=== PATIENT | female | born 1955 | race Caucasian/White ===

== ENCOUNTER 2019-04-03 15:28 | Outpatient (RCR) | payer BC, SELFPAY ==
--- NOTE | 2019-04-04 07:26 | PTOPEVAL ---
Thank you for referring this patient to [facility]. Please review, sign, date and return this plan of care JOSEPH. I agree with and certify that the following plan of care is medically necessary. Referring Physician Date Admitting Provider: Attending Provider: Louis Hughes DO Referring Provider: *PT Outpatient Evaluation Start: 04/03/19 15:35 Freq: Status: Active Protocol: Document 04/03/19 15:45 JTF (Rec: 04/03/19 16:11 J [id number]) Therapy Assessment Status Assessment Status Assessment Status Evaluation Outpatient Past Medical History Past Medical History Past Medical History Status Patient Denies Significant Past Medical History Evaluation Information Problem Diagnosis L shoulder pain Onset 03/26/19 Additional Evaluation Detail quick dash = 72% Subjective Information patient reports she has been Query Text:As Reported By Patient/ having pain in the L shoulder Family for a few years. she reports she does not remember any injury. she reports she has had x-rays of the L shoulder. she reports she has been informed she has arthritis of the L shoulder. she reports she is retired. she reports she did fall down some steps a few years ago that may have begun her pain episodes. she reports she has increased pain in the L shoulder with lifting her grandson, getting dressed, and falling asleep. Prior Level of Function Comments Additional Prior Level of Function patient reports she has been Comments having pain in the L shoulder for years. she reports she avoids using the L arm as much as possible. she reports she takes care of her grandon all day. Pain Assessment Timing of Pain Assessment Timing of Pain Assessment Assessment Pain Scale Pain Scale Used Numeric (1 - 10) Self Report Pain Assessment Left Shoulder(s) Reported Pain Level 0 Current Pain Intensity 0 Lowest Pain Intensity 0 Greatest Pain Intensity 10 Pain Level Goal 0 Pain Aggravating Factors Lifting,Other Pain Aggravating Factors Other Pain Aggravating Factors overhead reaching. Pain Sco
--- NOTE | 2019-04-10 13:08 | PCPTNOTE ---
04/10/19 patient called and cancelled JF
== END 2019-05-02 08:53 | disposition home or self-care (01) ==
LOC: CHSPT 15:28
PROVIDERS: PCP Family Medicine; Visit Provider Family Medicine
DX: M25.512 Pain in left shoulder (principal)
CPT/HCPCS: 97110; 97161; 97530

== ENCOUNTER 2019-04-05 14:56 | Outpatient (CLI) | payer BC, SELFPAY ==
--- NOTE | ~2019-04-05 | CT_ITS ---
EXAMINATION: CTA chest DATE: 04/05/2019 15:14 INDICATION: Thoracic aortic aneurysm without rupture TECHNIQUE: Computed tomographic angiography (CTA) of the chest was performed without 100 mL Omnipaque -350 intravenous contrast. Volume-rendered 3D-reconstructions of the aorta and large arteries were co nstructed by the technologist on a separate workstation. Automated exposure control and iterative rec onstruction technique were employed. The dose-length product was 275 mGy-cm. COMPARISON: None. FINDINGS: Mild apical emphysema. No pneumonia or other pulmonary infiltrates, pulmonary edema or pleural effusi on. There is a curvilinear filling defect extending from the left mainstem bronchus into the trachea likely representing some mucus. Although not performed as a dedicated pulmonary embolism protocol the re is excellent contrast opacification of the pulmonary arteries and no significant motion artifact y ielding diagnostic quality study which demonstrates no pulmonary embolism. Heart size is normal. No p ericardial effusion. Eccentric bulge along the inferolateral wall of the aortic arch consistent with a ductus diverticulum. The aorta at this location measures 3.9 cm medial to lateral and 3.4 cm in max imal transaxial dimensions. Remainder of the thoracic aorta is normal in caliber. No dissection. No p athologically enlarged thoracic lymphadenopathy. Visualized upper abdomen is unremarkable. Moderate d isc height loss with Modic type III sclerotic endplate changes at T7-T8. Left-sided C7 cervical rib. IMPRESSION: 1. 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 2. Mild emphysema. Reviewed, dictated and finalized at location A. RTING MANAGER IMPRESSION: 1. 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 2. Mild emphysema.
[2019-04-05 16:07] LABS: Estimated Glomerular Filt Rate > 60
== END 2019-04-05 14:57 | disposition home or self-care (01) ==
PROVIDERS: PCP Family Medicine; Visit Provider Family Medicine
DX: I71.2 Thoracic aortic aneurysm, without rupture (principal)
CPT/HCPCS: 71275; Q9965

== ENCOUNTER 2019-04-24 08:42 | Outpatient (CLI) | payer BC, SELFPAY ==
--- NOTE | ~2019-04-24 | US_ITS ---
EXAMINATION: US ARTERIAL DUPLEX LOWER SANDRA DATE: 04/24/2019 09:52 INDICATION: Hypertension, hyperlipidemia and tobacco use with thoracic aortic aneurysm and prominent vessels in the lower extremities. Assess for popliteal artery aneurysm. TECHNIQUE: Grayscale ultrasound images and duplex color Doppler ultrasound images of the bilateral lo wer extremity arteries were obtained. COMPARISON: none FINDINGS: Peak systolic velocities (cm/s) were obtained in the following arteries: Right lower extremity: Waveforms are triphasic from the common femoral artery through the distal superficial femoral artery and biphasic more distally with brisk systolic upstrokes throughout. Common femoral: 128 Profunda femoral: 83 Superficial femoral, proximal: 106 Superficial femoral, mid: 94 Superficial femoral, distal: 82 Popliteal, proximal: 60 and measures 6 mm in maximal diameter Popliteal, distal: 130 and measures 4 mm in maximal diameter Peroneal: 47 Posterior tibial: 66 Dorsalis pedis: 27 Anterior tibial: 50 Left lower extremity: Forms are triphasic with brisk systolic upstrokes throughout the left lower extremity. Common femoral: 147 Profunda femoral: 79 Superficial femoral, proximal: 138 Superficial femoral, mid: 116 Superficial femoral, distal: 93 Popliteal, proximal: 54 and measures 7 mm in maximal diameter Popliteal, distal: 92 and measures 6 mm in maximal diameter. Peroneal: 65 Posterior tibial: 80 Dorsalis pedis: 47 Anterior tibial: 42 IMPRESSION: 1. Unremarkable duplex Doppler study of the arteries of the lower extremities with no arterial aneur ysms or hemodynamically significant stenosis. Reviewed, dictated and finalized at location A. TAPER HELPER IMPRESSION: 1. Unremarkable duplex Doppler study of the arteries of the lower extremities with no arterial aneurysms or hemodynamically significant stenosis.
--- NOTE | ~2019-04-24 | US_ITS ---
EXAMINATION: US aorta DATE: 04/24/2019 09:53 INDICATION: Thoracic aortic aneurysm. TECHNIQUE: Grayscale, color Doppler, and pulsed Doppler images of the aorta and common iliac arteries were obtained. COMPARISON: None. FINDINGS: The aorta is normal in caliber. The right common iliac artery is normal in caliber. The left common i liac artery is normal in caliber. IMPRESSION: 1. No abdominal aortic aneurysm. Reviewed, dictated and finalized at location A. CAL RECORD TRANSCRIBER
== END 2019-04-24 08:43 | disposition home or self-care (01) ==
PROVIDERS: PCP Family Medicine
DX: I71.2 Thoracic aortic aneurysm, without rupture (principal); Z72.0 Tobacco use; I10 Essential (primary) hypertension; E78.5 Hyperlipidemia, unspecified; R09.89 Other specified symptoms and signs involving the circulatory and respiratory systems
CPT/HCPCS: 76775; 93925

== ENCOUNTER 2019-10-08 12:50 | Outpatient (CLI) | payer BC, SELFPAY ==
[2019-10-08 13:01] LABS: Hematocrit 49.2 % (35.0-49.0); Hemoglobin 16.4 g/dL (12.0-15.0); Mean Corpuscular HGB Conc 33.3 g/dL (32.0-36.0); Mean Corpuscular Hemoglobin 32.3 pg (27.0-31.0); Mean Corpuscular Volume 96.9 fL (78.0-102.0); Platelet Count Result 259 K/mm3 (150-420); Red Blood Count 5.08 M/mm3 (4.20-5.40); Red Cell Distribution Width 12.3 % (11.6-14.4); White Blood Count 8.7 K/mm3 (4.8-10.8)
[2019-10-08 13:49] LABS: Alanine Aminotransferase 12 U/L (14-59); Albumin Level 3.4 g/dL (3.4-5.0); Alkaline Phosphatase 70 U/L (46-116); Anion Gap 5 mmol/L (8-16); Aspartate Amino Transferase 12 U/L (15-37); Bilirubin,Total 0.3 mg/dL (0.00-1.00); Blood Urea Nitrogen 20 mg/dL (7-18); Calcium 8.7 mg/dL (8.5-10.1); Carbon Dioxide 30 mmol/L (21-32); Chloride 103 mmol/L (98-108); Cholesterol 176 mg/dL (0-200); Estimated Glomerular Filt Rate 56; Glucose 85 mg/dL (70-99); HDL Direct 38 mg/dL (40-60); LDL Cholesterol Calculated 110 mg/dL (<130); Osmolality Calculated 287 mOsm/kg (285-295); Potassium 4.8 mmol/L (3.5-5.1); Sodium 138 mmol/L (136-145); Total Protein 6.2 g/dL (6.4-8.2); Triglycerides 141 mg/dL (0-150)
[2019-10-08 14:34] LABS: Thyroid Stimulating Hormone Reflex 0.93 u/IU/mL (0.36-3.74)
== END 2019-10-08 12:51 | disposition home or self-care (01) ==
PROVIDERS: PCP Family Medicine; Visit Provider Family Medicine
DX: I10 Essential (primary) hypertension (principal)
CPT/HCPCS: 36415; 80053; 80061; 80164; 80165; 84443; 85027

== ENCOUNTER 2020-04-14 09:09 | Outpatient (NON) | payer BC, SELFPAY | END 2020-04-14 09:10 | PROVIDERS: PCP Family Medicine; Visit Provider Family Medicine | DX: R30.0 Dysuria (principal) | CPT/HCPCS: 87077; 87086; 87088; 87186 ==

== ENCOUNTER 2020-05-19 07:29 | Outpatient (CLI) | payer BC, SELFPAY ==
[2020-05-19 07:47] LABS: Basophils Absolute Auto 0.07 K/mm3 (0.00-0.10); Basophils Percent Auto 0.9 % (0.0-1.0); Eosinophils Absolute Auto 0.07 K/mm3 (0.02-0.50); Eosinophils Percent Auto 0.9 % (1.0-6.0); Hematocrit 46.9 % (35.0-49.0); Hemoglobin 15.6 g/dL (12.0-15.0); Immature Granulocyte Absolute 0.04 K/mm3 (0.00-0.00); Immature Granulocyte Percent A 0.5 % (0.0-0.0); Lymphocytes Absolute Auto 2.81 K/mm3 (1.10-4.50); Lymphocytes Percent Auto 34.4 % (18.0-42.0); Mean Corpuscular HGB Conc 33.3 g/dL (32.0-36.0); Mean Corpuscular Hemoglobin 32.4 pg (27.0-31.0); Mean Corpuscular Volume 97.5 fL (78.0-102.0); Mean Platelet Volume 9.6 fl (9.2-11.8); Monocytes Absolute Auto 0.98 K/mm3 (0.10-0.90); Neutrophils Absolute Auto 4.2 K/mm3 (1.7-7.2); Neutrophils Percent Auto 51.3 % (50.0-70.0); Platelet Count Result 261 K/mm3 (150-420); Red Blood Count 4.81 M/mm3 (4.20-5.40); White Blood Count 8.2 K/mm3 (4.8-10.8)
[2020-05-19 09:18] LABS: Alanine Aminotransferase 17 U/L (14-59); Albumin Level 3.4 g/dL (3.4-5.0); Alkaline Phosphatase 72 U/L (46-116); Anion Gap 7 mmol/L (8-16); Aspartate Amino Transferase < 10 U/L (15-37); Bilirubin,Total 0.4 mg/dL (0.00-1.00); Blood Urea Nitrogen 11 mg/dL (7-18); Calcium 8.7 mg/dL (8.5-10.1); Carbon Dioxide 32 mmol/L (21-32); Chloride 100 mmol/L (98-108); Cholesterol 216 mg/dL (0-200); Estimated Glomerular Filt Rate > 60; Glucose 89 mg/dL (70-99); HDL Direct 43 mg/dL (40-60); LDL Cholesterol Calculated 138 mg/dL (<130); Osmolality Calculated 286 mOsm/kg (285-295); Potassium 4.1 mmol/L (3.5-5.1); Sodium 139 mmol/L (136-145); Total Protein 6.3 g/dL (6.4-8.2); Triglycerides 173 mg/dL (0-150)
== END 2020-05-19 07:30 | disposition home or self-care (01) ==
LOC: CHSLAB 07:31
PROVIDERS: PCP Family Medicine; Visit Provider Psychiatry & Neurology Psychiatry
DX: Z79.899 Other long term (current) drug therapy (principal)
CPT/HCPCS: 36415; 80053; 80061; 80164; 83036; 85025

== ENCOUNTER 2020-11-11 07:28 | Outpatient (CLI) | payer BC, SELFPAY ==
[2020-11-13 12:43] LABS: Valproic Acid 73.4 mg/L (50.0-100.0)
== END 2020-11-11 07:29 | disposition home or self-care (01) ==
LOC: CHSLAB 07:31
PROVIDERS: PCP Family Medicine
DX: Z79.899 Other long term (current) drug therapy (principal)
CPT/HCPCS: 36415; 80164

== ENCOUNTER 2020-11-23 15:20 | Emergency (ER) | payer BC, SELFPAY ==
--- NOTE | ~2020-11-23 | CT_ITS ---
EXAMINATION: CT brain wo con DATE: 11/23/2020 16:46 INDICATION: Head injury following a fall today. Frontal hematoma. TECHNIQUE: Computed tomography (CT) of the head was performed without intravenous contrast. The mA wa s adjusted according to patient size. Iterative reconstruction technique was employed. Exam dose: 68 1.00 mGy-cm total exam DLP. COMPARISON: 11/09/2016 CT head FINDINGS: There is prominent left frontal cephalhematoma. No skull fracture is detected. No coup or contrecoup intracranial abnormality is identified. No midline shift or mass effect. No intracranial mass lesion or hemorrhage or recent cerebrovascular accident is detected. No subdura l or epidural hematoma. IMPRESSION: Prominent left cephalhematoma; no skull fracture or acute intracranial abnormality Reviewed, dictated and finalized at Location A. Reviewed, dictated and finalized at location B. IMPRESSION: Prominent left cephalhematoma; no skull fracture or acute intracra nial abnormality
--- NOTE | ~2020-11-23 | CT_ITS ---
EXAMINATION: CT cervical spine wo con EXAM DATE: 11/23/2020 16:46 INDICATION: fall head injury after fall today with HERNANDEZ and hematoma to frontal . TECHNIQUE: Spiral CT of the cervical spine was performed without contrast. Axial images were reviewe d. Coronal and sagittal reformatted images cervical spine were also reviewed. The dose-length produc t (DLP) for this examination was 681.00 mGy-cm. The exposure was tailored according to patient size (auto mA exposure control), and iterative reconstruction (ASIR) was used as additional dose reduction technique. There is no prior study for comparison. FINDINGS: There is no evidence of acute cervical fracture. The odontoid process is intact. Pre-dens space is normal. Prevertebral soft tissue is normal. There are no soft tissue abnormalities identi fied. There is no disc space widening or traumatic vertebral body subluxation suspected. There is m oderate C5-6 disc disease. Mild disc disease at other mid cervical levels. There is advanced left C2- 3 and 3-4 facet arthropathy, advanced bilateral uncovertebral joint arthropathy at C5-6. A detailed level by level evaluation of spondylosis can be added as addendum if requested. IMPRESSION: 1. No acute cervical fracture. 2. Cervical spondylosis. Reviewed, dictated and finalized at location A.
[2020-11-23 15:30] VITALS: BP 153/81; PULSE 70; RESP 18; TEMP 36.1; O2SAT 96
[2020-11-23] MEDS: KETOROLAC (*BKC) 60 MG/2 ML VIAL IM (16:05)
--- NOTE | 2020-11-23 16:09 | ECG_ITS ---
Measurements Intervals [place] Rate: 67 P: 65 WA: 141 QRS: 22 QRSD: 77 T: 52 QT: 371 QTc: 394 Interpretive Statements SINUS RHYTHM BORDERLINE ST ABNORMALITY- ANTEROLAT/INF LEADS BASELINE ARTIFACT- I, II, III, AVR, AVL,A VF, V4-V6 BORDERLINE ECG Electronically Signed On 11-23-2020 16:29:15 CDT by Lazaro Zavala D.O.
[2020-11-23] MEDS: BENZTROPINE MESYLATE 1 MG TABLET PO (16:20)
[2020-11-23 16:44] LABS: Basophils Absolute Auto 0.08 K/mm3 (0.00-0.10); Basophils Percent Auto 0.7 % (0.0-1.0); Eosinophils Absolute Auto 0.06 K/mm3 (0.02-0.50); Eosinophils Percent Auto 0.5 % (1.0-6.0); Hematocrit 42.8 % (35.0-49.0); Hemoglobin 15.1 g/dL (12.0-15.0); Immature Granulocyte Absolute 0.05 K/mm3 (0.00-0.00); Immature Granulocyte Percent A 0.4 % (0.0-0.0); Lymphocytes Absolute Auto 3.13 K/mm3 (1.10-4.50); Lymphocytes Percent Auto 27.9 % (18.0-42.0); Mean Corpuscular HGB Conc 35.3 g/dL (32.0-36.0); Mean Corpuscular Hemoglobin 33.1 pg (27.0-31.0); Mean Corpuscular Volume 93.9 fL (78.0-102.0); Mean Platelet Volume 9.8 fl (9.2-11.8); Monocytes Absolute Auto 0.99 K/mm3 (0.10-0.90); Monocytes Percent Auto 8.8 % (2.0-11.0); Neutrophils Absolute Auto 6.9 K/mm3 (1.7-7.2); Neutrophils Percent Auto 61.7 % (50.0-70.0); Platelet Count Result 276 K/mm3 (150-420); Red Blood Count 4.56 M/mm3 (4.20-5.40); Red Cell Distribution Width 12.7 % (11.6-14.4); White Blood Count 11.2 K/mm3 (4.8-10.8)
[2020-11-23 17:06] LABS: Alanine Aminotransferase 17 U/L (14-59); Albumin Level 3.3 g/dL (3.4-5.0); Alkaline Phosphatase 64 U/L (46-116); Anion Gap 7 mmol/L (8-16); Aspartate Amino Transferase 10 U/L (15-37); Bilirubin,Total 0.2 mg/dL (0.00-1.00); Blood Urea Nitrogen 19 mg/dL (7-18); Carbon Dioxide 28 mmol/L (21-32); Chloride 98 mmol/L (98-108); Estimated CRCL calculation 56 ml/min; Estimated Glomerular Filt Rate > 60; Glucose 124 mg/dL (70-99); Osmolality Calculated 279 mOsm/kg (285-295); Potassium 4.6 mmol/L (3.5-5.1); Sodium 133 mmol/L (136-145); Total Protein 6.3 g/dL (6.4-8.2)
[2020-11-23 17:30] VITALS: BP 140/72; PULSE 80; RESP 18; O2SAT 99
--- NOTE | 2020-11-23 18:22 | ED.HEATRA ---
HPI - Head Injury General Chief complaint: Head Injury Stated complaint: head injury Time Seen by Provider: 11/23/20 15:23 Source: patient and RN notes reviewed Mode of arrival: ambulatory Limitations: no limitations History of Present Illness Complaint: head injury Onset (ago): hour(s) (1) Arrival Conditions: other (pt was not immobilized.) Mechanism of Injury: fall Loss of Consciousness: no Location of injury: parietal Severity: mild Severity scale (1-10): 4 Quality: dull and aching Other Injuries: none Associated symptoms: other (gentle generalized ryhthmic body movements) Related Data Home Medications Medication Instructions Recorded Confirmed clonazepam 1 mg tablet 1 mg PO BID PRN tablet 03/25/19 11/23/20 divalproex 500 mg tablet,delayed 500 mg PO Q12H 03/25/19 11/23/20 release risperidone 1 mg tablet 1 mg PO .1 QAM & 2 QPM tablet 03/25/19 11/23/20 trazodone 50 mg tablet 50 mg PO .Bedtime tablet 03/25/19 11/23/20 venlafaxine 75 mg tablet 75 mg PO DAILY 03/25/19 11/23/20 bupropion HCl 75 mg PO DAILY 11/23/20 11/23/20 Allergies Allergy/AdvReac Type Severity Reaction Status Date / Time No Known Allergies Allergy Verified 11/26/20 11:30 Review of Systems Review of Systems: All systems reviewed & are unremarkable except as noted in HPI and below Musculoskeletal: Musculoskeletal: Reports as per HPI (mild rhythmic body movements.) PMFSH Past Medical History Medical History Ascending aortic aneurysm Cataracts, bilateral Depression Hyperlipidemia Hypertension Hypothyroidism On valproic acid therapy Overweight Seasonal allergies Tobacco abuse Surgical History Surgical History History of carpal tunnel surgery Social History Social History Smoking packs per day: 0.5 Smoking cigarettes per day: 10.0 Years smoked: 40 Smoking pack-years: 20.00 Smoking status: Current every day smoker Tobacco type: cigarettes Additional living arrangements comments: . 3 adult children. Exam Const: General: no acute distress and alert Nutritional Appearance: well nourished Orientation/consciousness: patient oriented x3 Limitations: no limitations HENMT: Head: normal to inspection Ears: TM's normal bilaterally Other: left fronto-parietal hematoma Eyes: Conjunctivae: conjunctivae normal Pupils: Equal, round and reactive pupils present EOM: EOMs intact bilaterally Neck: Neck: normal visual inspection and no lymphadenopathy Chest: Chest palpation & inspection: normal inspection of the chest Resp: Effort & Inspection: normal respiratory effort Auscultation: clear to auscultation bilaterally Cardio: Rate: regular rate Rhythm: regular rhythm GI: GI Palp: Yes Soft to palpation and No Tenderness to palpation present (GI) Percussion: Yes normal to percussion : General: Yes bladder normal to palpation and Yes no CVA tenderness Back/Spine/Pelvis: Back: no CVA tenderness Skin: General skin exam: normal color Rashes: no rashes Neuro: General: patient oriented x3, moves all extremities, no meningeal signs and no focal motor deficits Cranial nerves: Yes CN's II-XII intact bilaterally Other: mild generalized rhythmic motion. Extrem: General: normal to inspection and no pedal edema Psych: Mental Status: mental status grossly normal Affect: normal affect Attitude: cooperative Thought content: Yes Normal thought content present Course Course Emergency Course: Pt was in no acute distress. less pain-ful with less body movement Reevaluation(s) Date: 11/23/20 Time: 16:25 Vital Signs Vital signs: Vital Signs Temperature 36.1 C L 11/23/20 15:30 Pulse Rate 70 11/23/20 15:30 Respiratory Rate 18 11/23/20 15:30 Blood Pressure 153/81 H 11/23/20 15:30 Pulse Oximetry 96 11/23/20 15:30 Temperature
[2020-11-23 18:29] VITALS: BP 132/70; PULSE 72; RESP 18; TEMP 37; O2SAT 98
== END 2020-11-23 18:32 | disposition home or self-care (01) ==
LOC: CHSED 15:22
PROVIDERS: Emergency Provider Emergency Medicine; PCP Family Medicine
DX: G25.9 Extrapyramidal and movement disorder, unspecified (principal); S09.90XA Unspecified injury of head, initial encounter; W19.XXXA Unspecified fall, initial encounter
CPT/HCPCS: 36415; 70450; 72125; 80053; 84484; 85025; 93005; 96372; 99283; 99284; A9270; J1885

== ENCOUNTER 2021-02-24 09:59 | Outpatient (CLI) | payer BC, SELFPAY ==
[2021-02-24 11:22] LABS: SARS-CoV-2 RNA PCR Negative (Negative)
== END 2021-02-24 10:00 | disposition home or self-care (01) ==
LOC: CHSLAB 10:01
PROVIDERS: PCP Family Medicine; Visit Provider Nurse Practitioner Family
DX: Z20.822 Contact with and (suspected) exposure to COVID-19 (principal)
CPT/HCPCS: C9803; U0003; U0005

== ENCOUNTER 2021-03-01 14:48 | Outpatient (NON) | payer BC, SELFPAY | END 2021-03-01 14:49 | disposition home or self-care (01) | LOC: CHSLAB 14:51 | PROVIDERS: Visit Provider Family Medicine | DX: R30.0 Dysuria (principal) | CPT/HCPCS: 87086; 87088 ==

== ENCOUNTER 2021-06-22 13:51 | Outpatient (CLI) | payer BC, SELFPAY ==
[2021-06-22 14:21] LABS: Hematocrit 42.4 % (35.0-49.0); Hemoglobin 14.4 g/dL (12.0-15.0); Mean Corpuscular Hemoglobin 32.7 pg (27.0-31.0); Mean Corpuscular Volume 96.4 fL (78.0-102.0); Mean Platelet Volume 9.9 fl (9.2-11.8); Platelet Count Result 274 K/mm3 (150-420); White Blood Count 9.6 K/mm3 (4.8-10.8)
[2021-06-22 15:02] LABS: Alanine Aminotransferase 11 U/L (14-59); Albumin Level 3.2 g/dL (3.4-5.0); Alkaline Phosphatase 79 U/L (46-116); Anion Gap 7 mmol/L (8-16); Aspartate Amino Transferase < 10 U/L (15-37); Bilirubin,Total 0.3 mg/dL (0.00-1.00); Blood Urea Nitrogen 13 mg/dL (7-18); Calcium 8.9 mg/dL (8.5-10.1); Carbon Dioxide 30 mmol/L (21-32); Chloride 97 mmol/L (98-108); Cholesterol 180 mg/dL (0-200); Estimated Glomerular Filt Rate > 60; Glucose 102 mg/dL (70-99); HDL Direct 38 mg/dL (40-60); LDL Cholesterol Calculated 111 mg/dL (<130); Osmolality Calculated 278 mOsm/kg (285-295); Potassium 4.4 mmol/L (3.5-5.1); Sodium 134 mmol/L (136-145); Total Protein 6.3 g/dL (6.4-8.2); Triglycerides 157 mg/dL (0-150)
[2021-06-24 11:22] LABS: Valproic Acid 65.6 mg/L (50.0-100.0)
== END 2021-06-22 13:52 | disposition home or self-care (01) ==
LOC: CHSLAB 13:57
PROVIDERS: PCP Family Medicine
DX: Z79.899 Other long term (current) drug therapy (principal)
CPT/HCPCS: 36415; 80053; 80061; 80164; 85027

== ENCOUNTER 2022-02-04 09:32 | Outpatient (CLI) | payer MEDICARE, OTHER, SELFPAY ==
[2022-02-04 09:51] LABS: Basophils Percent Auto 1.2 % (0.0-1.0); Eosinophils Percent Auto 2.4 % (1.0-6.0); Hematocrit 44.4 % (35.0-42.0); Hemoglobin 14.8 g/dL (11.7-13.8); Immature Granulocyte Absolute 0.03 K/mm3 (0.00-0.00); Immature Granulocyte Percent A 0.4 % (0.0-0.0); Lymphocytes Absolute Auto 1.91 K/mm3 (1.10-4.50); Lymphocytes Percent Auto 22.7 % (18.0-42.0); Mean Corpuscular HGB Conc 33.3 g/dL (32.0-36.0); Mean Corpuscular Hemoglobin 31.4 pg (27.0-31.0); Mean Corpuscular Volume 94.1 fL (78.0-102.0); Mean Platelet Volume 10.2 fl (9.2-11.8); Monocytes Percent Auto 7.1 % (2.0-11.0); Neutrophils Absolute Auto 5.6 K/mm3 (1.7-7.2); Neutrophils Percent Auto 66.2 % (50.0-70.0); Platelet Count Result 212 K/mm3 (150-420); Red Blood Count 4.72 M/mm3 (4.20-5.40); Red Cell Distribution Width 12.4 % (11.6-14.4); White Blood Count 8.4 K/mm3 (4.8-10.8)
[2022-02-04 10:05] LABS: Add Urine Microscopic? YES; Appearance Urine Slightly Cloudy (Clear); Bilirubin Urine Negative (Negative); Blood Urine 1+ (Negative); Color Urine Yellow (Yellow); Glucose Urine UA Negative (Negative); Ketones Urine Trace (Negative); Leukocyte Esterase Ur Negative (Negative); Nitrate Urine Negative (Negative); Protein Urine Negative (Negative); Urobilinogen Urine 0.2 mg/dL (0.2-1.0); pH Urine 6.5 (5.0-8.0)
[2022-02-04 10:22] LABS: Bacteria Urine 1+ /hpf; Squamous Epithelial Cell Urine Few /hpf (Few); WBC Urine 0-3 /hpf (0-3)
[2022-02-04 10:31] LABS: Hemoglobin A1C 5.3 % (<5.7)
[2022-02-04 11:25] LABS: Alanine Aminotransferase 7 U/L (14-59); Albumin Level 3.2 g/dL (3.4-5.0); Alkaline Phosphatase 77 U/L (46-116); Anion Gap 5 mmol/L (8-16); Aspartate Amino Transferase 10 U/L (15-37); Bilirubin,Total 0.4 mg/dL (0.00-1.00); Blood Urea Nitrogen 11 mg/dL (7-18); Calcium 9.1 mg/dL (8.5-10.1); Carbon Dioxide 32 mmol/L (21-32); Chloride 99 mmol/L (98-108); Cholesterol 185 mg/dL (0-200); Estimated Glomerular Filt Rate > 60; Glucose 80 mg/dL (70-99); HDL Direct 43 mg/dL (40-60); LDL Cholesterol Calculated 120 mg/dL (<130); Osmolality Calculated 280 mOsm/kg (285-295); Potassium 4.8 mmol/L (3.5-5.1); Sodium 136 mmol/L (136-145); Thyroid Stimulating Hormone 1.44 uIU/mL (0.36-3.74); Total Protein 6.8 g/dL (6.4-8.2); Triglycerides 110 mg/dL (0-150)
[2022-02-07 20:56] LABS: Valproic Acid 77.6 mg/L (50.0-100.0)
== END 2022-02-04 09:33 | disposition home or self-care (01) ==
LOC: CHSLAB 09:35
PROVIDERS: PCP Family Medicine
DX: Z79.899 Other long term (current) drug therapy (principal)
CPT/HCPCS: 36415; 80053; 80061; 80164; 81001; 83036; 84443; 85025

== ENCOUNTER 2022-09-23 10:22 | Outpatient (CLI) | payer MEDICARE, SELFPAY ==
[2022-09-23 10:42] LABS: Basophils Percent Auto 1.1 % (0.0-1.0); Eosinophils Absolute Auto 0.11 K/mm3 (0.02-0.50); Eosinophils Percent Auto 1.2 % (1.0-6.0); Hematocrit 43.1 % (35.0-42.0); Hemoglobin 14.8 g/dL (11.7-13.8); Immature Granulocyte Absolute 0.04 K/mm3 (0.00-0.00); Immature Granulocyte Percent A 0.4 % (0.0-0.0); Lymphocytes Percent Auto 26.4 % (18.0-42.0); Mean Corpuscular HGB Conc 34.3 g/dL (32.0-36.0); Mean Corpuscular Hemoglobin 32.2 pg (27.0-31.0); Mean Corpuscular Volume 93.9 fL (78.0-102.0); Mean Platelet Volume 9.5 fl (9.2-11.8); Monocytes Absolute Auto 0.87 K/mm3 (0.10-0.90); Monocytes Percent Auto 9.6 % (2.0-11.0); Neutrophils Absolute Auto 5.6 K/mm3 (1.7-7.2); Neutrophils Percent Auto 61.3 % (50.0-70.0); Platelet Count Result 265 K/mm3 (150-420); Red Blood Count 4.59 M/mm3 (4.20-5.40); Red Cell Distribution Width 13.2 % (11.6-14.4); White Blood Count 9.1 K/mm3 (4.8-10.8)
[2022-09-23 10:51] LABS: Hemoglobin A1C 5.1 % (<5.7)
[2022-09-23 11:19] LABS: Alanine Aminotransferase 12 U/L (14-59); Albumin Level 2.8 g/dL (3.4-5.0); Alkaline Phosphatase 70 U/L (46-116); Anion Gap 4 mmol/L (8-16); Aspartate Amino Transferase < 10 U/L (15-37); Bilirubin,Total 0.3 mg/dL (0.00-1.00); Blood Urea Nitrogen 11 mg/dL (7-18); Carbon Dioxide 33 mmol/L (21-32); Chloride 99 mmol/L (98-108); Cholesterol 152 mg/dL (0-200); Estimated Glomerular Filt Rate > 60; Glucose 56 mg/dL (70-99); HDL Direct 41 mg/dL (40-60); LDL Cholesterol Calculated 96 mg/dL (<130); Osmolality Calculated 279 mOsm/kg (285-295); Potassium 4.4 mmol/L (3.5-5.1); Sodium 136 mmol/L (136-145); Thyroid Stimulating Hormone 1.94 uIU/mL (0.36-3.74); Total Protein 5.9 g/dL (6.4-8.2); Triglycerides 75 mg/dL (0-150)
[2022-09-26 19:44] LABS: Valproic Acid 78.7 mg/L (50.0-100.0)
== END 2022-09-23 10:23 | disposition home or self-care (01) ==
PROVIDERS: PCP Family Medicine
DX: Z79.899 Other long term (current) drug therapy (principal)
CPT/HCPCS: 36415; 80053; 80061; 80164; 83036; 84443; 85025

== ENCOUNTER 2022-12-29 14:06 | Outpatient (CLI) | payer MEDICARE, SELFPAY ==
[2022-12-29 14:20] LABS: Basophils Absolute Auto 0.07 K/mm3 (0.00-0.10); Basophils Percent Auto 0.8 % (0.0-1.0); Eosinophils Absolute Auto 0.07 K/mm3 (0.02-0.50); Eosinophils Percent Auto 0.8 % (1.0-6.0); Hematocrit 43.6 % (35.0-42.0); Immature Granulocyte Absolute 0.03 K/mm3 (0.00-0.00); Immature Granulocyte Percent A 0.3 % (0.0-0.0); Lymphocytes Absolute Auto 2.06 K/mm3 (1.10-4.50); Lymphocytes Percent Auto 22.5 % (18.0-42.0); Mean Corpuscular HGB Conc 34.4 g/dL (32.0-36.0); Mean Corpuscular Hemoglobin 31.4 pg (27.0-31.0); Mean Corpuscular Volume 91.2 fL (78.0-102.0); Mean Platelet Volume 9.1 fl (9.2-11.8); Monocytes Absolute Auto 0.91 K/mm3 (0.10-0.90); Monocytes Percent Auto 9.9 % (2.0-11.0); Neutrophils Percent Auto 65.7 % (50.0-70.0); Platelet Count Result 260 K/mm3 (150-420); Red Blood Count 4.78 M/mm3 (4.20-5.40); Red Cell Distribution Width 13.3 % (11.6-14.4); White Blood Count 9.2 K/mm3 (4.8-10.8)
[2022-12-29 14:35] LABS: Hemoglobin A1C 5.2 % (<5.7)
[2022-12-29 15:18] LABS: Albumin Level 2.7 g/dL (3.4-5.0); Alkaline Phosphatase 75 U/L (46-116); Anion Gap 9 mmol/L (8-16); Aspartate Amino Transferase < 10 U/L (15-37); Bilirubin,Total 0.4 mg/dL (0.00-1.00); Blood Urea Nitrogen 13 mg/dL (7-18); Carbon Dioxide 28 mmol/L (21-32); Chloride 99 mmol/L (98-108); Estimated Glomerular Filt Rate > 60; Free T4 Free Thyroxine Reflex 1.12 ng/dL (0.76-1.46); Glucose 89 mg/dL (70-99); Magnesium 1.9 mg/dL (1.8-2.4); Osmolality Calculated 281 mOsm/kg (285-295); Potassium 3.5 mmol/L (3.5-5.1); Sodium 136 mmol/L (136-145); Thyroid Stimulating Hormone Reflex 4.22 u/IU/mL (0.36-3.74); Total Protein 5.9 g/dL (6.4-8.2); Vitamin B12 717 pg/mL (193-986)
[2022-12-29 15:27] LABS: Alanine Aminotransferase 9 U/L (14-59)
== END 2022-12-29 14:07 | disposition home or self-care (01) ==
LOC: CHSLAB 14:07
PROVIDERS: PCP Family Medicine; Visit Provider Family Medicine
DX: E11.9 Type 2 diabetes mellitus without complications (principal); I73.9 Peripheral vascular disease, unspecified; E53.8 Deficiency of other specified B group vitamins; G62.9 Polyneuropathy, unspecified
CPT/HCPCS: 36415; 80053; 82607; 82746; 83036; 83735; 84439; 84443; 85025

== ENCOUNTER 2023-01-04 13:03 | Outpatient (CLI) | payer MEDICARE, SELFPAY ==
--- NOTE | ~2023-01-04 | US_ITS ---
EXAMINATION: US arterial ankle brachial ind DATE: 01/04/2023 13:31 INDICATION: Peripheral vascular disease. TECHNIQUE: Segmental pressures and plethysmographic and Doppler waveforms of the brachial and lower e xtremity arteries were obtained. COMPARISON: Ultrasound 04/24/2019 FINDINGS: Right and left brachial artery pressures of 173 mm Hg and 168 mm Hg, respectively, are concordant (no rmal difference <= 30 mmHg). The right ankle-brachial index (RHODA) is 0.90 (normal >= 0.9-1.0). The right great toe-brachial index (TBI) is 0.67 (normal >= 0.65). Arterial Doppler waveforms are monophasic at the ankle. The left RHODA is 1.86. The left TBI is 0.50. Arterial Doppler waveforms are monophasic at the ankle. IMPRESSION: 1. Mildly decreased ABIs, consistent with arterial occlusive disease. Reviewed, dictated and finalized at location E. ONAL MEDICAL DIRECTOR
== END 2023-01-04 13:04 | disposition home or self-care (01) ==
LOC: CHSIMG 13:05
PROVIDERS: PCP Family Medicine; Visit Provider Family Medicine
DX: I73.9 Peripheral vascular disease, unspecified (principal)
CPT/HCPCS: 93922

== ENCOUNTER 2023-02-24 10:34 | Outpatient (CLI) | payer MEDICARE, SELFPAY ==
[2023-02-24 10:56] LABS: Hematocrit 47.2 % (35.0-42.0); Hemoglobin 16.3 g/dL (11.7-13.8); Mean Corpuscular HGB Conc 34.5 g/dL (32.0-36.0); Mean Corpuscular Hemoglobin 31.5 pg (27.0-31.0); Mean Corpuscular Volume 91.1 fL (78.0-102.0); Mean Platelet Volume 9.5 fl (9.2-11.8); Platelet Count Result 309 K/mm3 (150-420); Red Blood Count 5.18 M/mm3 (4.20-5.40); Red Cell Distribution Width 13.7 % (11.6-14.4); White Blood Count 7.3 K/mm3 (4.8-10.8)
[2023-02-24 11:08] LABS: Hemoglobin A1C 4.8 % (<5.7)
[2023-02-24 11:49] LABS: Alanine Aminotransferase 9 U/L (14-59); Albumin Level 2.9 g/dL (3.4-5.0); Alkaline Phosphatase 76 U/L (46-116); Anion Gap 10 mmol/L (8-16); Aspartate Amino Transferase < 10 U/L (15-37); Bilirubin,Total 0.6 mg/dL (0.00-1.00); Blood Urea Nitrogen 10 mg/dL (7-18); Calcium 8.8 mg/dL (8.5-10.1); Carbon Dioxide 28 mmol/L (21-32); Chloride 92 mmol/L (98-108); Cholesterol 268 mg/dL (0-200); Estimated Glomerular Filt Rate 59; Glucose 83 mg/dL (70-99); HDL Direct 38 mg/dL (40-60); LDL Cholesterol Calculated 201 mg/dL (<130); Osmolality Calculated 268 mOsm/kg (285-295); Potassium 3.8 mmol/L (3.5-5.1); Sodium 130 mmol/L (136-145); Thyroid Stimulating Hormone 1.19 uIU/mL (0.36-3.74); Total Protein 6.8 g/dL (6.4-8.2); Triglycerides 144 mg/dL (0-150)
[2023-02-27 06:41] LABS: Valproic Acid 84.7 mg/L (50.0-100.0)
== END 2023-02-24 10:35 | disposition home or self-care (01) ==
LOC: CHSLAB 10:39
PROVIDERS: PCP Family Medicine
DX: Z79.899 Other long term (current) drug therapy (principal)
CPT/HCPCS: 36415; 80053; 80061; 80164; 83036; 84443; 85027

== ENCOUNTER 2023-03-17 13:43 | Inpatient (IN) | payer MEDICARE, SELFPAY ==
[2023-03-17] VITALS (7 sets, daily range): BP systolic 105–135; BP diastolic 45–70; PULSE 50–81; RESP 16–20; TEMP 36.2–36.9; O2SAT 95–98; BMI 19.7
--- NOTE | ~2023-03-17 | XR_ITS ---
EXAMINATION: XR chest 1V portable DATE: 03/17/2023 14:55 INDICATION: Weakness. TECHNIQUE: A single frontal view of the chest was obtained. COMPARISON: Chest 2 views 05/13/2013 FINDINGS: There are mild airspace opacities in the lower lung zones. No pleural effusion or pneumotho rax. The heart size is normal. IMPRESSION: 1. Mild airspace opacities in the lower lung zones, consistent with atelectasis versus pneumonia. Reviewed, dictated and finalized at location E. BI ARCHITECT
--- NOTE | ~2023-03-17 | MR_ITS ---
MRI of the brain Clinical History: Weakness, slurred speech Technique: Axial and sagittal T1-weighted images were acquired. These were followed by axial T2-weigh gunnar, diffusion weighted, gradient, and FLAIR images. Following intravenous administration of 9 cc Mul tiHance gadolinium, T1-weighted fat-sat imaging was performed in the axial and coronal planes. Findings: There is no acute infarct, internal hemorrhage, mass lesion. There are mild chronic progres sive ischemic changes in the periventricular white matter bilaterally. Ventricles and subarachnoid spaces are dilated. Orbits are unremarkable. Paranasal sinuses and mastoi d air cells are clear. Major intracranial flow voids are intact. Sagittal midline structures are intact. No abnormal postcontrast enhancement identified. IMPRESSION: No acute infarct, intracranial hemorrhage, or mass lesion. Mild chronic microvascular ischemic change, and mild to moderate generalized atrophy. Reviewed, dictated and finalized at [facility]. OPERATOR IMPRESSION: No acute infarct, intracranial hemorrhage, or mass lesion. Mild chronic microvascular ischemic change, and mild to moderate generalized at rop.
--- NOTE | 2023-03-17 14:12 | ED.GENADULT ---
HPI - General Adult General Chief complaint: Weakness Stated complaint: weakness Time Seen by Provider: 03/17/23 14:12 Source: patient and family Limitations: no limitations History of Present Illness HPI narrative: 67 years old white female came from home with her daughter because of general weakness, unable to walk as usual for the last 3 months poor p.o. intake but she drinks enough fluid.. Was seen by her family physician 3 days ago and was referred to [facility]. Was seen by a specialist at [facility] then was told to follow-up in 1 month. History of severe peripheral neuropathy of unknown etiology for over 3 months,hypertension, hyperlipidemia, hypothyroidism. Patient lives with her who had history of cancer, unable to take care of him, patient does smoke cigarettes, denies drinking alcohol or using marijuana, does not take aspirin or or anticoagulant medication,. She denies any fever, chills, nausea, vomiting abdominal pain, chest pain, shortness of breath, headache recent trauma. Related Data Home Medications Medication Instructions Recorded Confirmed divalproex 500 mg tablet,delayed 500 mg PO DAILY 03/25/19 03/17/23 release trazodone 50 mg tablet 100 mg PO HS 03/25/19 03/17/23 bupropion HCl 150 mg 24 hr tablet, 300 mg PO DAILY 03/17/23 03/17/23 extended release diclofenac sodium 75 mg 75 mg PO BID PRN Pain (Scale Score 03/17/23 03/17/23 tablet,delayed release 4-6) divalproex 500 mg tablet,extended 1,000 mg PO HS 03/17/23 03/17/23 release 24 hr escitalopram oxalate 10 mg tablet 10 mg PO HS 03/17/23 03/17/23 levothyroxine 75 mcg tablet 75 mcg PO DAILY 03/17/23 03/17/23 metoprolol succinate 50 mg 50 mg PO BID 03/17/23 03/17/23 tablet,extended release 24 hr montelukast 5 mg chewable tablet 5 mg PO DAILY 03/17/23 03/17/23 Allergies Allergy/AdvReac Type Severity Reaction Status Date / Time No Known Allergies Allergy Verified 03/17/23 15:16 Review of Systems Review of Systems: All systems reviewed & are unremarkable except as noted in HPI and below PMFSH Past Medical History Medical History Ascending aortic aneurysm Cataracts, bilateral Depression Hyperlipidemia Hypertension Hypothyroidism On valproic acid therapy Overweight Seasonal allergies Tobacco abuse Surgical History Surgical History History of carpal tunnel surgery Social History Social History Smoking packs per day: 0.5 Smoking cigarettes per day: 10.0 Years smoked: 40 Smoking pack-years: 20.00 Smoking status: Current every day smoker Tobacco type: cigarettes Living arrangements: with family Additional living arrangements comments: . 3 adult children. Exam Narrative: General appearance: Well-developed, Malnourished looks weak Skin: pale Head: Normocephalic, nontraumatic Eyes: Clear conjunctiva ENT: Oropharynx normal, ears normal, nose normal Neck: Supple, nontender Chest and respiratory: Airway patent, no respiratory distress, no accessory muscle use Heart: Regular rate/rhythm Abdomen: Soft, nontender, no organomegaly, quiet bowel sounds Vascular: Normal peripheral pulses, normal capillary refill. Musculoskeletal: limited range of motion of the lower extremities, nontender back Neurologic: Alert and oriented ?3, Course Vital Signs Vital signs: Vital Signs Temperature 36.8 C 03/17/23 13:50 Pulse Rate 81 03/17/23 13:50 Respiratory Rate 19 03/17/23 13:50 Blood Pressure 134/45 L 03/17/23 13:50 Pulse Oximetry 96 03/17/23 13:5
[2023-03-17 14:54] LABS: Basophils Absolute Auto 0.03 K/mm3 (0.00-0.10); Basophils Percent Auto 0.3 % (0.0-1.0); Eosinophils Absolute Auto 0.02 K/mm3 (0.02-0.50); Eosinophils Percent Auto 0.2 % (1.0-6.0); Hematocrit 39.2 % (35.0-42.0); Hemoglobin 13.5 g/dL (11.7-13.8); Immature Granulocyte Absolute 0.07 K/mm3 (0.00-0.00); Immature Granulocyte Percent A 0.6 % (0.0-0.0); Lymphocytes Absolute Auto 1.29 K/mm3 (1.10-4.50); Mean Corpuscular HGB Conc 34.4 g/dL (32.0-36.0); Mean Corpuscular Hemoglobin 30.9 pg (27.0-31.0); Mean Corpuscular Volume 89.7 fL (78.0-102.0); Mean Platelet Volume 9.7 fl (9.2-11.8); Monocytes Absolute Auto 0.53 K/mm3 (0.10-0.90); Monocytes Percent Auto 4.5 % (2.0-11.0); Neutrophils Absolute Auto 9.8 K/mm3 (1.7-7.2); Neutrophils Percent Auto 83.4 % (50.0-70.0); Platelet Count Result 174 K/mm3 (150-420); Red Blood Count 4.37 M/mm3 (4.20-5.40); Red Cell Distribution Width 14.5 % (11.6-14.4); White Blood Count 11.7 K/mm3 (4.8-10.8)
[2023-03-17 15:08] LABS: Alanine Aminotransferase 12 U/L (14-59); Albumin Level 1.9 g/dL (3.4-5.0); Alkaline Phosphatase 68 U/L (46-116); Anion Gap 7 mmol/L (8-16); Aspartate Amino Transferase < 10 U/L (15-37); Bilirubin,Total 0.4 mg/dL (0.00-1.00); Blood Urea Nitrogen 12 mg/dL (7-18); Calcium 8.3 mg/dL (8.5-10.1); Carbon Dioxide 31 mmol/L (21-32); Chloride 95 mmol/L (98-108); Creatine Kinase 70 U/L (26-192); Estimated CRCL calculation 49 ml/min; Estimated Glomerular Filt Rate > 60; Glucose 93 mg/dL (70-99); Osmolality Calculated 275 mOsm/kg (285-295); Potassium 2.7 mmol/L (3.5-5.1); Sodium 133 mmol/L (136-145); Total Protein 5.7 g/dL (6.4-8.2)
[2023-03-17] MEDS: POTASSIUM CHLORIDE 20 MEQ PACKET (FOR LIQUID) 40 MEQ PO (16:05)
[2023-03-17] MEDS: KCL 40 MEQ/0.9% SOD CHL 1,000 ML 100 ML IV CONT (16:19)
--- NOTE | 2023-03-17 16:20 | ECG_ITS ---
Measurements Intervals [place] Rate: 53 P: 69 KS: 137 QRS: 61 QRSD: 101 T: 62 QT: 459 QTc: 432 Interpretive Statements SINUS BRADYCARDIA LEFT VENTRICULAR HYPERTROPHY AND ST-T CHANGE BORDERLINE ST ABNORMALITY- ANT/INF LEADS BASELINE ARTIFACT- I, II, III, AVR, AVL, AVF, V1-V4 BORDERLINE ECG COMPARED TO ECG 11/23/2020 16:25:56 SINUS BRADYCARDIA NOW PRESENT LEFT VENTRICULAR HYPERTROPHY NOW PRESENT Electronically Signed On 03-18-2023 8:32:04 COFFEE SAMPLER by Lazaro Zavala D.O.
[2023-03-17 16:23] LABS: Appearance Urine Clear (Clear); Bilirubin Urine 2+ (Negative); Blood Urine Trace-Intact (Negative); Glucose Urine UA Negative (Negative); Ketones Urine 1+ (Negative); Leukocyte Esterase Ur Negative LEU/UL (Negative); Nitrate Urine Negative (Negative); Protein Urine Trace (Negative)
[2023-03-17 16:25] LABS: Add Urine Microscopic? YES; Bacteria Urine 1+ /hpf; Color Urine Dark Yellow (Yellow); RBC Urine 0-2 /hpf (0-2); Squamous Epithelial Cell Urine Few /hpf (Few); WBC Urine None seen /hpf (0-3)
--- NOTE | 2023-03-17 17:37 | PM.IMHP ---
H&P: HPI History of Present Illness Date/Time: 03/17/23 17:37 Chief Complaint: weakness FTT hypokalemia hyponatremia malnutrition Narrative: This is a 67 year old female with a significant past medical history of AAA, depression, bipolar disorder, hyperlipidemia, hypertension, hypothyroidism, peripheral neuropathy, tobacco abuse, seasonal allergies, and cataracts who presented to the hospital today with complaints of weakness. Patient states that she has been weak for the past month where she is unable to stand or get up by herself. Her daughter has been helping her with this the past month. patient was referred by her primary care physician 3 days ago to go to [facility]. She was seen by specialist is [facility] and was told follow-up in 1 month however they were unable to tell us what type of specialist it was or the workup. Patient currently lives with her who has cancer she is unable to take care of him as he is unable to take care of her. Workup in the hospital included a chest x-ray which revealed mild airspace opacities in the lower lung zones. Labs revealed a white blood cell count 11.7, sodium level of 133, potassium of 2.7, chloride 95, serum osmolarity 275, calcium 8.3, AST less than 10, ALT 12, total protein 5.7, albumin 1.9. UA showed 1+ ketones, trace protein, trace urine blood, 2+ urine bili, 1+ bacteria, 1-2 granular casts. EKG showed sinus Mik with a rate of 53. Patient was given 1 L D5 NS at 40 of K and also received 40 meq potassium p.o. once while in the ED. On examination today patient is alert oriented x3, lying in the bed. She appears very malnourished and weak. she denies any fevers, chills, nausea, vomiting, abdominal pain, chest pain, shortness a breath, headache. She does state that she had diarrhea yesterday in which she took Imodium. Review of Systems Review of Systems: All systems reviewed & are unremarkable except as noted in HPI and below Constitutional: Constitutional: Reports as per HPI and Reports no additional constitutional complaints Eyes: Eyes: Reports as per HPI and Reports no additional eye complaints ENT: Reports system reviewed and no additional complaints, except as documented and Reports as per HPI Cardiovascular: Cardiovascular: Reports as per HPI and Reports no additional cardiovascular complaints Respiratory: Respiratory: Reports as per HPI and Reports no additional respiratory complaints Gastrointestinal: Gastrointestinal: Reports as per HPI and Reports no additional gastrointestinal complaints Genitourinary: Genitourinary: Reports no additional female genitourinary complaints and Reports as per HPI Musculoskeletal: Musculoskeletal: Reports no additional musculoskeletal complaints and Reports as per HPI Integumentary/Breasts: Skin/Breast: Reports system reviewed and no additional complaints, except as docu and Reports as per HPI Neurologic: Reports system reviewed and no additional complaints, except as documented and Reports as per HPI Psychiatric: Psychiatric: Reports no additional psychiatric complaints and Reports as per HPI [facility] Past Medical History Medical History (Updated 03/17/23 @ 18:31 by Sri Wilson APRN) Ascending aortic aneurysm Bipolar disorder Cataracts, bilateral Depression Hyperlipidemia Hypertension Hypothyroidism Malnutrition On valproic acid therapy Peripheral vascular disease Seasonal allergies Tobacco abuse Surgical History Surgical History History of carpal tunnel surgery Social History Social History Smoking packs per day: 0.5 Smoking cigarettes per day: 10.0 Years smoked: 40 Smoking pack-years: 20.00 Smoking status: Current every day smoker Tobacco type: cigarettes Living arrangements: with family Additional living arrangements comments: . 3 adult children. Meds Home Medicatio
--- NOTE | 2023-03-17 18:32 | ADMGEN ---
This patient, Maritza Noriega, was admitted to 2nd Floor Room 202-1. Patient/family oriented to hospital policies and general routines including ID bracelet, bed and alarms, visiting hours, pain management, procedures, bathroom and other care routines, personal items, smoking policy, room service/diet, and visiting hours. Information on how to activate the Rapid Response Team has been discussed. Patient/Family are encouraged to report perceived risks to care and to ask questions if they do not understand what they are told or what they should do.
[2023-03-17] MEDS: traZODone HCL 50 MG TABLET 100 MG PO (20:34)
[2023-03-17] MEDS: DIVALPROEX SODIUM ER 500 MG TAB.24H 1000 MG PO (20:34)
[2023-03-17] MEDS: ACETAMINOPHEN 325 MG TABLET 650 MG PO (20:35)
[2023-03-17] MEDS: ESCITALOPRAM OXALATE 10 MG TABLET PO (20:35)
[2023-03-17] MEDS: METOPROLOL SUCCINATE EXT REL 50 MG TABCR PO (20:35)
[2023-03-18] VITALS (7 sets, daily range): BP systolic 100–171; BP diastolic 75–83; PULSE 52–60; RESP 16–18; TEMP 36.2–36.4; O2SAT 95
[2023-03-18] MEDS: SODIUM CHLORIDE 0.9% IV 1,000 ML 100 ML IV CONT ×2 (02:14→12:15)
[2023-03-18] MEDS: LEVOTHYROXINE SODIUM 75 MCG TABLET PO (05:32)
[2023-03-18] MEDS: METOPROLOL SUCCINATE EXT REL 50 MG TABCR PO ×2 (05:32→18:06)
[2023-03-18 05:43] LABS: Basophils Absolute Auto 0.04 K/mm3 (0.00-0.10); Basophils Percent Auto 0.3 % (0.0-1.0); Eosinophils Absolute Auto 0.07 K/mm3 (0.02-0.50); Eosinophils Percent Auto 0.6 % (1.0-6.0); Hematocrit 42.1 % (35.0-42.0); Hemoglobin 13.9 g/dL (11.7-13.8); Immature Granulocyte Percent A 0.9 % (0.0-0.0); Lymphocytes Absolute Auto 1.96 K/mm3 (1.10-4.50); Lymphocytes Percent Auto 16.9 % (18.0-42.0); Mean Corpuscular Hemoglobin 30.2 pg (27.0-31.0); Mean Corpuscular Volume 91.5 fL (78.0-102.0); Mean Platelet Volume 9.9 fl (9.2-11.8); Monocytes Absolute Auto 0.55 K/mm3 (0.10-0.90); Monocytes Percent Auto 4.7 % (2.0-11.0); Neutrophils Absolute Auto 8.9 K/mm3 (1.7-7.2); Neutrophils Percent Auto 76.6 % (50.0-70.0); Platelet Count Result 192 K/mm3 (150-420); White Blood Count 11.6 K/mm3 (4.8-10.8)
[2023-03-18 06:03] LABS: Alanine Aminotransferase 14 U/L (14-59); Alkaline Phosphatase 79 U/L (46-116); Anion Gap 6 mmol/L (8-16); Aspartate Amino Transferase 16 U/L (15-37); Bilirubin,Total 0.4 mg/dL (0.00-1.00); Blood Urea Nitrogen 6 mg/dL (7-18); Calcium 8.1 mg/dL (8.5-10.1); Carbon Dioxide 31 mmol/L (21-32); Chloride 99 mmol/L (98-108); Estimated CRCL calculation 62 ml/min; Estimated Glomerular Filt Rate > 60; Glucose 82 mg/dL (70-99); Magnesium 1.7 mg/dL (1.8-2.4); Osmolality Calculated 278 mOsm/kg (285-295); Potassium 3.9 mmol/L (3.5-5.1); Sodium 136 mmol/L (136-145); Total Protein 6.2 g/dL (6.4-8.2)
--- NOTE | 2023-03-18 07:46 | P.PNIM_ITS ---
Progress Note: A&P Assessment and Plan (1) Weakness: Code(s): R53.1 - Weakness Status: Acute Assessment and Plan: 03/17/23: * patient reporting increased weakness and unable to ambulate for at least 1 month * patient lives with her who has cancer and he is unable to care for her, daughter has been coming to the house assisting both mother. * PT/OT ordered * we will check TSH in the morning * poor p.o. intake * hypokalemia hyponatremia on labs * will likely need SNF or swing if appropriate 03/18/23: * TSH 4.60, increased Synthroid to 88 mcg daily * PT and OT to evaluate and start treatment plan * K+ 3.9 today, sodium 136, Magnesium 1.7. Patient given 2 gm of magnesium today. * Likely will require rehab placement (2) Adult failure to thrive: Code(s): R62.7 - Adult failure to thrive Status: Acute Assessment and Plan: 03/17/23: * See above plan of care (3) Hyponatremia: Code(s): E87.1 - Hypo-osmolality and hyponatremia Status: Acute Assessment and Plan: 03/17/23: * sodium level today 133, chloride 90 osmolarity 275 * continue to trend * patient receiving IV fluids normal saline with 40 of KCL 03/18/23: * Na+ 136, serum osmolarity 278 * Continue to trend * Continue IVF, will change to just NS @ 100ml/hr (4) Malnutrition: Code(s): E46 - Unspecified protein-calorie malnutrition Status: Acute Assessment and Plan: 03/17/23: * severe malnutrition due to failure to thrive * patient states she has not eaten at all today. * patient states that she lost quite a bit await is unable to tell me exactly how much and what period of time. * Currently with a BMI of 21.1, 54 kg * total protein 5.7, albumin 1.9 * dietitian consulted * patient placed on a heart healthy diet 03/18/23: * No change to current treatment plan (5) Acute hypokalemia: Code(s): E87.6 - Hypokalemia Status: Acute Assessment and Plan: 03/17/23: * Potassium level 2.7 today * IVF normal saline and 40 of KCl infusing * patient was given 40 mEq potassium in the ED * will check labs in the morning 03/18/23: * K+ 3.9 today, no replacement needed * Will change IVF to just NS since KCL corrected * Continue to trend labs (6) Hypothyroidism: Code(s): E03.9 - Hypothyroidism, unspecified Status: Acute Assessment and Plan: 03/17/23: * continue Synthroid * check TSH in the morning 03/18/23: * TSH 4.60 today * Increased Synthroid to 88 mcg daily (7) Hypertension: Code(s): I10 - Essential (primary) hypertension Status: Acute Assessment and Plan: 03/17/23: * blood pressure ranging 105/56 to 134/45 * continue metoprolol 03/18/23: * B/P ranging 105/56-135/70 * Continue with current treatment plan (8) Depression: Code(s): F32.9 - Major depressive disorder, single episode, unspecified Status: Acute Assessment and Plan: 03/17/23: * continue bupropion and Lexapro 03/18/23: * No change to current treatment plan (9) Peripheral neuropathy: Code(s): G62.9 - Polyneuropathy, unspecified Status: Acute Assessment and Plan: 03/17/23: * patient was diagnosed with severe peripheral neuropathy which may be contributing to her increased weakness * continue diclofenac for pain control 03/18/23: * No change to current treatment plan (10) Bipolar disorder: Code(s): F31.9 - [place]
--- NOTE | 2023-03-18 07:46 | PM.IMPN ---
Progress Note: A&P Assessment and Plan (1) Weakness: Code(s): R53.1 - Weakness Status: Acute Assessment and Plan: 03/17/23: patient reporting increased weakness and unable to ambulate for at least 1 month patient lives with her who has cancer and he is unable to care for her, daughter has been coming to the house assisting both mother. PT/OT ordered we will check TSH in the morning poor p.o. intake hypokalemia hyponatremia on labs will likely need SNF or swing if appropriate 03/18/23: TSH 4.60, increased Synthroid to 88 mcg daily PT and OT to evaluate and start treatment plan K+ 3.9 today, sodium 136, Magnesium 1.7. Patient given 2 gm of magnesium today. Likely will require rehab placement (2) Adult failure to thrive: Code(s): R62.7 - Adult failure to thrive Status: Acute Assessment and Plan: 03/17/23: See above plan of care (3) Hyponatremia: Code(s): E87.1 - Hypo-osmolality and hyponatremia Status: Acute Assessment and Plan: 03/17/23: sodium level today 133, chloride 90 osmolarity 275 continue to trend patient receiving IV fluids normal saline with 40 of KCL 03/18/23: Na+ 136, serum osmolarity 278 Continue to trend Continue IVF, will change to just NS @ 100ml/hr (4) Malnutrition: Code(s): E46 - Unspecified protein-calorie malnutrition Status: Acute Assessment and Plan: 03/17/23: severe malnutrition due to failure to thrive patient states she has not eaten at all today. patient states that she lost quite a bit await is unable to tell me exactly how much and what period of time. Currently with a BMI of 21.1, 54 kg total protein 5.7, albumin 1.9 dietitian consulted patient placed on a heart healthy diet 03/18/23: No change to current treatment plan (5) Acute hypokalemia: Code(s): E87.6 - Hypokalemia Status: Acute Assessment and Plan: 03/17/23: Potassium level 2.7 today IVF normal saline and 40 of KCl infusing patient was given 40 mEq potassium in the ED will check labs in the morning 03/18/23: K+ 3.9 today, no replacement needed Will change IVF to just NS since KCL corrected Continue to trend labs (6) Hypothyroidism: Code(s): E03.9 - Hypothyroidism, unspecified Status: Acute Assessment and Plan: 03/17/23: continue Synthroid check TSH in the morning 03/18/23: TSH 4.60 today Increased Synthroid to 88 mcg daily (7) Hypertension: Code(s): I10 - Essential (primary) hypertension Status: Acute Assessment and Plan: 03/17/23: blood pressure ranging 105/56 to 134/45 continue metoprolol 03/18/23: B/P ranging 105/56-135/70 Continue with current treatment plan (8) Depression: Code(s): F32.9 - Major depressive disorder, single episode, unspecified Status: Acute Assessment and Plan: 03/17/23: continue bupropion and Lexapro 03/18/23: No change to current treatment plan (9) Peripheral neuropathy: Code(s): G62.9 - Polyneuropathy, unspecified Status: Acute Assessment and Plan: 03/17/23: patient was diagnosed with severe peripheral neuropathy which may be contributing to her increased weakness continue diclofenac for pain control 03/18/23: No change to current treatment plan (10) Bipolar disorder: Code(s): F31.9 - Bipolar disorder, unspecified Status: Acute Assessment and Plan: 03/17/23: continue valporic acid 03/18/23: No change to current treatment plan (11) On valproic acid therapy: Code(s): Z79.899 - Other [facility] (current) drug therapy Status: Acute Assessment and Plan: 03/17/23: will check level in the morning 03/18/23: Valporic acid level (12) Hyperlipidemia: Code(s): E78.5 - Hyperlipidemia, unspecified Status: Acute Assessment and Plan: 03/17/23: continue atorvastatin 1
[2023-03-18] MEDS: MAGNESIUM SULF 2 GM/WATER 50ML 2 GM/50 ML BAG IVPB (09:47)
[2023-03-18] MEDS: ATORVASTATIN 40 MG TABLET BY MOUTH (09:48)
[2023-03-18] MEDS: DIVALPROEX SODIUM DR 250 MG TABEC 500 MG PO (09:48)
[2023-03-18] MEDS: ENOXAPARIN 40 MG/0.4 ML SYRINGE SUB-Q (09:49)
[2023-03-18] MEDS: MONTELUKAST SODIUM 5 MG TABLET PO (09:49)
[2023-03-18] MEDS: buPROPion HCL XL (24 HR) 150 MG TABCR 300 MG PO (09:49)
[2023-03-18] MEDS: NICOTINE (*PBKC) 14 MG PATCH 1 PATCH TRANSDERM (20:47)
[2023-03-18] MEDS: ACETAMINOPHEN 325 MG TABLET 650 MG PO (20:48)
[2023-03-18] MEDS: ESCITALOPRAM OXALATE 10 MG TABLET PO (20:48)
[2023-03-18] MEDS: MELATONIN 5 MG TABLET PO (20:48)
[2023-03-18] MEDS: traZODone HCL 50 MG TABLET 100 MG PO (20:48)
[2023-03-18] MEDS: DIVALPROEX SODIUM ER 500 MG TAB.24H 1000 MG PO (20:50)
[2023-03-19] VITALS (7 sets, daily range): BP systolic 146–156; BP diastolic 61–100; PULSE 53–62; RESP 16–20; TEMP 35.9–36.2; O2SAT 96–100
[2023-03-19] MEDS: SODIUM CHLORIDE 0.9% IV 1,000 ML 100 ML IV CONT (00:32)
--- NOTE | 2023-03-19 04:40 | PC.NURSE ---
Patient was visiting with her daughter at the beginning of the shift. She was A/O X 4 with some confusion. She has impulse control issues and poor safety awareness. Bed alarm/ chair alarm is on at all times. Patient is stand by assist with verbal cues for reminders of safety. Patient has been up 5 times to the bedside commode, and has been incontinent prior to calling, as well as urinating when getting to the commode. Patient did sleep better tonight than the previous night. Patient's urine is clear, pale yellow with no odor. Patient is here for failure to thrive. Poor fluid intake continues. Fluids are encouraged as well as IV NS given at 100 mL/hr. Telemetry continues with sinus tony rhythm.
[2023-03-19 05:45] LABS: Basophils Absolute Auto 0.03 K/mm3 (0.00-0.10); Basophils Percent Auto 0.4 % (0.0-1.0); Eosinophils Absolute Auto 0.04 K/mm3 (0.02-0.50); Eosinophils Percent Auto 0.5 % (1.0-6.0); Hemoglobin 11.4 g/dL (11.7-13.8); Immature Granulocyte Absolute 0.07 K/mm3 (0.00-0.00); Immature Granulocyte Percent A 0.9 % (0.0-0.0); Lymphocytes Absolute Auto 1.45 K/mm3 (1.10-4.50); Lymphocytes Percent Auto 19.3 % (18.0-42.0); Mean Corpuscular HGB Conc 33.5 g/dL (32.0-36.0); Mean Corpuscular Hemoglobin 30.6 pg (27.0-31.0); Mean Corpuscular Volume 91.2 fL (78.0-102.0); Mean Platelet Volume 9.9 fl (9.2-11.8); Monocytes Absolute Auto 0.52 K/mm3 (0.10-0.90); Monocytes Percent Auto 6.9 % (2.0-11.0); Neutrophils Absolute Auto 5.4 K/mm3 (1.7-7.2); Platelet Count Result 156 K/mm3 (150-420); Red Blood Count 3.73 M/mm3 (4.20-5.40); Red Cell Distribution Width 15.2 % (11.6-14.4); White Blood Count 7.5 K/mm3 (4.8-10.8)
[2023-03-19 05:59] LABS: Alanine Aminotransferase 10 U/L (14-59); Albumin Level 1.7 g/dL (3.4-5.0); Alkaline Phosphatase 63 U/L (46-116); Anion Gap 4 mmol/L (8-16); Aspartate Amino Transferase 12 U/L (15-37); Bilirubin,Total 0.3 mg/dL (0.00-1.00); Blood Urea Nitrogen 1 mg/dL (7-18); Calcium 7.1 mg/dL (8.5-10.1); Carbon Dioxide 32 mmol/L (21-32); Chloride 102 mmol/L (98-108); Estimated CRCL calculation 86 ml/min; Estimated Glomerular Filt Rate > 60; Glucose 79 mg/dL (70-99); Magnesium 1.8 mg/dL (1.8-2.4); Osmolality Calculated 280 mOsm/kg (285-295); Potassium 3.1 mmol/L (3.5-5.1); Sodium 138 mmol/L (136-145); Total Protein 4.6 g/dL (6.4-8.2)
[2023-03-19] MEDS: METOPROLOL SUCCINATE EXT REL 50 MG TABCR PO ×2 (06:12→18:05)
[2023-03-19] MEDS: LEVOTHYROXINE SODIUM 88 MCG TABLET PO (06:13)
[2023-03-19] MEDS: POTASSIUM CHLORIDE 20 MEQ ER TABLET 40 MEQ PO (09:18)
[2023-03-19] MEDS: buPROPion HCL XL (24 HR) 150 MG TABCR 300 MG PO (09:18)
[2023-03-19] MEDS: ATORVASTATIN 40 MG TABLET BY MOUTH (09:18)
[2023-03-19] MEDS: DIVALPROEX SODIUM DR 250 MG TABEC 500 MG PO (09:18)
[2023-03-19] MEDS: MONTELUKAST SODIUM 5 MG TABLET PO (09:19)
[2023-03-19] MEDS: ENOXAPARIN 40 MG/0.4 ML SYRINGE SUB-Q (09:19)
[2023-03-19] MEDS: NICOTINE (*PBKC) 14 MG PATCH 1 PATCH TRANSDERM (09:19)
--- NOTE | 2023-03-19 09:41 | P.PNIM_ITS ---
Progress Note: A&P Assessment and Plan (1) Weakness: Code(s): R53.1 - Weakness Status: Acute Assessment and Plan: 03/17/23: * patient reporting increased weakness and unable to ambulate for at least 1 month * patient lives with her who has cancer and he is unable to care for her, daughter has been coming to the house assisting both mother. * PT/OT ordered * we will check TSH in the morning * poor p.o. intake * hypokalemia hyponatremia on labs * will likely need SNF or swing if appropriate 03/18/23: * TSH 4.60, increased Synthroid to 88 mcg daily * PT and OT to evaluate and start treatment plan * K+ 3.9 today, sodium 136, Magnesium 1.7. Patient given 2 gm of magnesium today. * Likely will require rehab placement 03/19 * Potassium low again, 3.1 will replace orally and schedule daily replacement * weakness likely related to significant malnourishment and total body depletion of potassium (2) Adult failure to thrive: Code(s): R62.7 - Adult failure to thrive Status: Acute Assessment and Plan: 03/17/23: * See above plan of care (3) Hyponatremia: Code(s): E87.1 - Hypo-osmolality and hyponatremia Status: Acute Assessment and Plan: 03/17/23: * sodium level today 133, chloride 90 osmolarity 275 * continue to trend * patient receiving IV fluids normal saline with 40 of KCL 03/18/23: * Na+ 136, serum osmolarity 278 * Continue to trend * Continue IVF, will change to just NS @ 100ml/hr (4) Malnutrition: Qualifiers: Malnutrition type: protein-calorie malnutrition Protein-calorie malnutrition severity: severe Qualified Code(s): E43 - Unspecified severe protein-calorie malnutrition Code(s): E46 - Unspecified protein-calorie malnutrition Status: Acute Assessment and Plan: 03/17/23: * severe malnutrition due to failure to thrive * patient states she has not eaten at all today. * patient states that she lost quite a bit await is unable to tell me exactly how much and what period of time. * Currently with a BMI of 21.1, 54 kg * total protein 5.7, albumin 1.9 * dietitian consulted * patient placed on a heart healthy diet 03/18/23: * No change to current treatment plan 03/19 * Add dietary supplements and liberalize diet to regular * Albumin level 1.7 today, DC IV Fluids (5) Acute hypokalemia: Code(s): E87.6 - Hypokalemia Status: Acute Assessment and Plan: 03/17/23: * Potassium level 2.7 today * IVF normal saline and 40 of KCl infusing * patient was given 40 mEq potassium in the ED * will check labs in the morning 03/18/23: * K+ 3.9 today, no replacement needed * Will change IVF to just NS since KCL corrected * Continue to trend labs 03/19 * Potassium low again, 3.1 will replace orally and schedule daily replacement * Weakness likely related to significant malnourishment and total body depletion of potassium (6) Hypothyroidism: Code(s): E03.9 - Hypothyroidism, unspecified Status: Acute Assessment and Plan: 03/17/23: * continue Synthroid * check TSH in the morning 03/18/23: * TSH 4.60 today * Increased Synthroid to 88 mcg daily (7) Hypertension: Code(s): I10 - Essential (primary) hypertension Status: Acute Assessment and Plan: 03/17/23: * blood pressure ranging 105/56 to 134/45 * continue metoprolol 03/18/23: * B/P ranging 105/56-135/70 * Continue with current treatment plan
--- NOTE | 2023-03-19 09:41 | PM.IMPN ---
Progress Note: A&P Assessment and Plan (1) Weakness: Code(s): R53.1 - Weakness Status: Acute Assessment and Plan: 03/17/23: patient reporting increased weakness and unable to ambulate for at least 1 month patient lives with her who has cancer and he is unable to care for her, daughter has been coming to the house assisting both mother. PT/OT ordered we will check TSH in the morning poor p.o. intake hypokalemia hyponatremia on labs will likely need SNF or swing if appropriate 03/18/23: TSH 4.60, increased Synthroid to 88 mcg daily PT and OT to evaluate and start treatment plan K+ 3.9 today, sodium 136, Magnesium 1.7. Patient given 2 gm of magnesium today. Likely will require rehab placement 03/19 Potassium low again, 3.1 will replace orally and schedule daily replacement weakness likely related to significant malnourishment and total body depletion of potassium (2) Adult failure to thrive: Code(s): R62.7 - Adult failure to thrive Status: Acute Assessment and Plan: 03/17/23: See above plan of care (3) Hyponatremia: Code(s): E87.1 - Hypo-osmolality and hyponatremia Status: Acute Assessment and Plan: 03/17/23: sodium level today 133, chloride 90 osmolarity 275 continue to trend patient receiving IV fluids normal saline with 40 of KCL 03/18/23: Na+ 136, serum osmolarity 278 Continue to trend Continue IVF, will change to just NS @ 100ml/hr (4) Malnutrition: Qualifiers: Malnutrition type: protein-calorie malnutrition Protein-calorie malnutrition severity: severe Qualified Code(s): E43 - Unspecified severe protein-calorie malnutrition Code(s): E46 - Unspecified protein-calorie malnutrition Status: Acute Assessment and Plan: 03/17/23: severe malnutrition due to failure to thrive patient states she has not eaten at all today. patient states that she lost quite a bit await is unable to tell me exactly how much and what period of time. Currently with a BMI of 21.1, 54 kg total protein 5.7, albumin 1.9 dietitian consulted patient placed on a heart healthy diet 03/18/23: No change to current treatment plan 03/19 Add dietary supplements and liberalize diet to regular Albumin level 1.7 today, DC IV Fluids (5) Acute hypokalemia: Code(s): E87.6 - Hypokalemia Status: Acute Assessment and Plan: 03/17/23: Potassium level 2.7 today IVF normal saline and 40 of KCl infusing patient was given 40 mEq potassium in the ED will check labs in the morning 03/18/23: K+ 3.9 today, no replacement needed Will change IVF to just NS since KCL corrected Continue to trend labs 03/19 Potassium low again, 3.1 will replace orally and schedule daily replacement Weakness likely related to significant malnourishment and total body depletion of potassium (6) Hypothyroidism: Code(s): E03.9 - Hypothyroidism, unspecified Status: Acute Assessment and Plan: 03/17/23: continue Synthroid check TSH in the morning 03/18/23: TSH 4.60 today Increased Synthroid to 88 mcg daily (7) Hypertension: Code(s): I10 - Essential (primary) hypertension Status: Acute Assessment and Plan: 03/17/23: blood pressure ranging 105/56 to 134/45 continue metoprolol 03/18/23: B/P ranging 105/56-135/70 Continue with current treatment plan (8) Depression: Code(s): F32.9 - Major depressive disorder, single episode, unspecified Status: Acute Assessment and Plan: 03/17/23: continue bupropion and Lexapro 03/18/23: No change to current treatment plan (9) Peripheral neuropathy: Code(s): G62.9 - Polyneuropathy, unspecified Status: Acute Assessment and Plan: 03/17/23: patient was diagnosed with severe peripheral neuropathy which may be contributing to her increased weakness continue diclofenac for pain contro
--- NOTE | 2023-03-19 10:31 | PC.NURSE ---
1000 patient is now an inpatient.
[2023-03-19] MEDS: traZODone HCL 50 MG TABLET 100 MG PO (20:55)
[2023-03-19] MEDS: DIVALPROEX SODIUM ER 500 MG TAB.24H 1000 MG PO (20:55)
[2023-03-19] MEDS: ACETAMINOPHEN 325 MG TABLET 650 MG PO (20:56)
[2023-03-19] MEDS: MELATONIN 5 MG TABLET PO (20:56)
[2023-03-19] MEDS: ESCITALOPRAM OXALATE 10 MG TABLET PO (20:56)
[2023-03-20] VITALS: BP 146/86; PULSE 61; RESP 17; TEMP 36.2; O2SAT 96
[2023-03-20 05:28] LABS: Basophils Absolute Auto 0.03 K/mm3 (0.00-0.10); Basophils Percent Auto 0.4 % (0.0-1.0); Eosinophils Absolute Auto 0.05 K/mm3 (0.02-0.50); Eosinophils Percent Auto 0.7 % (1.0-6.0); Hematocrit 39.1 % (35.0-42.0); Hemoglobin 13.1 g/dL (11.7-13.8); Immature Granulocyte Absolute 0.06 K/mm3 (0.00-0.00); Immature Granulocyte Percent A 0.8 % (0.0-0.0); Lymphocytes Absolute Auto 2.17 K/mm3 (1.10-4.50); Lymphocytes Percent Auto 29.8 % (18.0-42.0); Mean Corpuscular HGB Conc 33.5 g/dL (32.0-36.0); Mean Corpuscular Hemoglobin 30.2 pg (27.0-31.0); Mean Corpuscular Volume 90.1 fL (78.0-102.0); Mean Platelet Volume 9.7 fl (9.2-11.8); Monocytes Absolute Auto 0.75 K/mm3 (0.10-0.90); Monocytes Percent Auto 10.3 % (2.0-11.0); Neutrophils Absolute Auto 4.2 K/mm3 (1.7-7.2); Platelet Count Result 168 K/mm3 (150-420); Red Blood Count 4.34 M/mm3 (4.20-5.40); Red Cell Distribution Width 15.2 % (11.6-14.4); White Blood Count 7.3 K/mm3 (4.8-10.8)
[2023-03-20 05:48] VITALS: PULSE 62
[2023-03-20] MEDS: METOPROLOL SUCCINATE EXT REL 50 MG TABCR PO ×2 (05:48→17:33)
[2023-03-20] MEDS: LEVOTHYROXINE SODIUM 88 MCG TABLET PO (05:48)
[2023-03-20 05:52] LABS: Albumin Level 1.8 g/dL (3.4-5.0); Alkaline Phosphatase 66 U/L (46-116); Anion Gap 4 mmol/L (8-16); Aspartate Amino Transferase < 10 U/L (15-37); Bilirubin,Total 0.3 mg/dL (0.00-1.00); Blood Urea Nitrogen 10 mg/dL (7-18); Calcium 7.9 mg/dL (8.5-10.1); Carbon Dioxide 31 mmol/L (21-32); Chloride 95 mmol/L (98-108); Estimated CRCL calculation 64 ml/min; Estimated Glomerular Filt Rate > 60; Glucose 85 mg/dL (70-99); Osmolality Calculated 268 mOsm/kg (285-295); Potassium 4.2 mmol/L (3.5-5.1); Sodium 130 mmol/L (136-145)
[2023-03-20 06:00] LABS: Alanine Aminotransferase 10 U/L (14-59)
--- NOTE | 2023-03-20 06:51 | PC.NURSE ---
Patient rested well tonight. She had vitals consistent with previous vitals, with slightly elevated BP (146/86) and low temperature (97.1). Patient was up 2 times to void, and had 1 BM.
[2023-03-20 07:16] LABS: Procalcitonin 0.1 ng/mL
[2023-03-20 08:00] VITALS: BP 134/90; PULSE 62; RESP 16; TEMP 35.8; O2SAT 98
--- NOTE | 2023-03-20 08:05 | P.PNIM_ITS ---
Progress Note: A&P Assessment and Plan (1) Weakness: Code(s): R53.1 - Weakness Status: Acute Assessment and Plan: 03/17/23: * patient reporting increased weakness and unable to ambulate for at least 1 month * patient lives with her who has cancer and he is unable to care for her, daughter has been coming to the house assisting both mother. * PT/OT ordered * we will check TSH in the morning * poor p.o. intake * hypokalemia hyponatremia on labs * will likely need SNF or swing if appropriate 03/18/23: * TSH 4.60, increased Synthroid to 88 mcg daily * PT and OT to evaluate and start treatment plan * K+ 3.9 today, sodium 136, Magnesium 1.7. Patient given 2 gm of magnesium today. * Likely will require rehab placement 03/19 * Potassium low again, 3.1 will replace orally and schedule daily replacement * weakness likely related to significant malnourishment and total body depletion of potassium 03/20 * Potassium 4.2, sodium down to 130, will continue to trend * PT/OT reevaluation now that patient is inpatient status--will need SNF with potential need for permanent placement?? (2) Adult failure to thrive: Code(s): R62.7 - Adult failure to thrive Status: Acute Assessment and Plan: 03/17/23: * See above plan of care (3) Hyponatremia: Code(s): E87.1 - Hypo-osmolality and hyponatremia Status: Acute Assessment and Plan: 03/17/23: * sodium level today 133, chloride 90 osmolarity 275 * continue to trend * patient receiving IV fluids normal saline with 40 of KCL 03/18/23: * Na+ 136, serum osmolarity 278 * Continue to trend * Continue IVF, will change to just NS @ 100ml/hr 03/20: * Sodium down to 130 again, continue to monitor (4) Malnutrition: Qualifiers: Malnutrition type: protein-calorie malnutrition Protein-calorie malnutrition severity: severe Qualified Code(s): E43 - Unspecified severe protein-calorie malnutrition Code(s): E46 - Unspecified protein-calorie malnutrition Status: Acute Assessment and Plan: 03/17/23: * severe malnutrition due to failure to thrive * patient states she has not eaten at all today. * patient states that she lost quite a bit await is unable to tell me exactly how much and what period of time. * Currently with a BMI of 21.1, 54 kg * total protein 5.7, albumin 1.9 * dietitian consulted * patient placed on a heart healthy diet 03/18/23: * No change to current treatment plan 03/19 * Add dietary supplements and liberalize diet to regular * Albumin level 1.7 today, DC IV Fluids (5) Acute hypokalemia: Code(s): E87.6 - Hypokalemia Status: Acute Assessment and Plan: 03/17/23: * Potassium level 2.7 today * IVF normal saline and 40 of KCl infusing * patient was given 40 mEq potassium in the ED * will check labs in the morning 03/18/23: * K+ 3.9 today, no replacement needed * Will change IVF to just NS since KCL corrected * Continue to trend labs 03/19 * Potassium low again, 3.1 will replace orally and schedule daily replacement * Weakness likely related to significant malnourishment and total body depletion of potassium (6) Hypothyroidism: Code(s): E03.9 - Hypothyroidism, unspecified Status: Acute Assessment and Plan: 03/17/23: * continue Synthroid * check TSH in the morning 03/18/23: * TSH 4.60 today * Increased Synthroid to 88 mcg daily (7) Hypertension: Code(s):
--- NOTE | 2023-03-20 08:05 | PM.IMPN ---
Progress Note: A&P Assessment and Plan (1) Weakness: Code(s): R53.1 - Weakness Status: Acute Assessment and Plan: 03/17/23: patient reporting increased weakness and unable to ambulate for at least 1 month patient lives with her who has cancer and he is unable to care for her, daughter has been coming to the house assisting both mother. PT/OT ordered we will check TSH in the morning poor p.o. intake hypokalemia hyponatremia on labs will likely need SNF or swing if appropriate 03/18/23: TSH 4.60, increased Synthroid to 88 mcg daily PT and OT to evaluate and start treatment plan K+ 3.9 today, sodium 136, Magnesium 1.7. Patient given 2 gm of magnesium today. Likely will require rehab placement 03/19 Potassium low again, 3.1 will replace orally and schedule daily replacement weakness likely related to significant malnourishment and total body depletion of potassium 03/20 Potassium 4.2, sodium down to 130, will continue to trend PT/OT reevaluation now that patient is inpatient status--will need SNF with potential need for permanent placement?? (2) Adult failure to thrive: Code(s): R62.7 - Adult failure to thrive Status: Acute Assessment and Plan: 03/17/23: See above plan of care (3) Hyponatremia: Code(s): E87.1 - Hypo-osmolality and hyponatremia Status: Acute Assessment and Plan: 03/17/23: sodium level today 133, chloride 90 osmolarity 275 continue to trend patient receiving IV fluids normal saline with 40 of KCL 03/18/23: Na+ 136, serum osmolarity 278 Continue to trend Continue IVF, will change to just NS @ 100ml/hr 03/20: Sodium down to 130 again, continue to monitor (4) Malnutrition: Qualifiers: Malnutrition type: protein-calorie malnutrition Protein-calorie malnutrition severity: severe Qualified Code(s): E43 - Unspecified severe protein-calorie malnutrition Code(s): E46 - Unspecified protein-calorie malnutrition Status: Acute Assessment and Plan: 03/17/23: severe malnutrition due to failure to thrive patient states she has not eaten at all today. patient states that she lost quite a bit await is unable to tell me exactly how much and what period of time. Currently with a BMI of 21.1, 54 kg total protein 5.7, albumin 1.9 dietitian consulted patient placed on a heart healthy diet 03/18/23: No change to current treatment plan 03/19 Add dietary supplements and liberalize diet to regular Albumin level 1.7 today, DC IV Fluids (5) Acute hypokalemia: Code(s): E87.6 - Hypokalemia Status: Acute Assessment and Plan: 03/17/23: Potassium level 2.7 today IVF normal saline and 40 of KCl infusing patient was given 40 mEq potassium in the ED will check labs in the morning 03/18/23: K+ 3.9 today, no replacement needed Will change IVF to just NS since KCL corrected Continue to trend labs 03/19 Potassium low again, 3.1 will replace orally and schedule daily replacement Weakness likely related to significant malnourishment and total body depletion of potassium (6) Hypothyroidism: Code(s): E03.9 - Hypothyroidism, unspecified Status: Acute Assessment and Plan: 03/17/23: continue Synthroid check TSH in the morning 03/18/23: TSH 4.60 today Increased Synthroid to 88 mcg daily (7) Hypertension: Code(s): I10 - Essential (primary) hypertension Status: Acute Assessment and Plan: 03/17/23: blood pressure ranging 105/56 to 134/45 continue metoprolol 03/18/23: B/P ranging 105/56-135/70 Continue with current treatment plan (8) Depression: Code(s): F32.9 - Major depressive disorder, single episode, unspecified Status: Acute Assessment and Plan: 03/17/23: continue bupropion and Lexapro 03/18/23: No change to current treatment plan (9) Peripheral neuropathy: Code(s):
[2023-03-20] MEDS: DIVALPROEX SODIUM DR 250 MG TABEC 500 MG PO (09:26)
[2023-03-20] MEDS: MONTELUKAST SODIUM 5 MG TABLET PO (09:27)
[2023-03-20] MEDS: NICOTINE (*PBKC) 14 MG PATCH 1 PATCH TRANSDERM (09:27)
[2023-03-20] MEDS: buPROPion HCL XL (24 HR) 150 MG TABCR 300 MG PO (09:27)
[2023-03-20] MEDS: POTASSIUM CHLORIDE 20 MEQ ER TABLET 40 MEQ PO (09:27)
[2023-03-20] MEDS: ATORVASTATIN 40 MG TABLET BY MOUTH (09:27)
[2023-03-20] MEDS: ENOXAPARIN 40 MG/0.4 ML SYRINGE SUB-Q (09:28)
[2023-03-20 16:00] VITALS: BP 139/78; PULSE 60; RESP 18; TEMP 36.3; O2SAT 99
[2023-03-20 17:33] VITALS: PULSE 62
[2023-03-20] MEDS: DIVALPROEX SODIUM ER 500 MG TAB.24H 1000 MG PO (21:06)
[2023-03-20] MEDS: traZODone HCL 50 MG TABLET 100 MG PO (21:06)
[2023-03-20] MEDS: ESCITALOPRAM OXALATE 10 MG TABLET PO (21:07)
[2023-03-20] MEDS: MELATONIN 5 MG TABLET PO (21:07)
[2023-03-21] VITALS: BP 157/95; PULSE 65; RESP 16; TEMP 36.4; O2SAT 97
[2023-03-21 05:43] LABS: Basophils Absolute Auto 0.03 K/mm3 (0.00-0.10); Basophils Percent Auto 0.4 % (0.0-1.0); Eosinophils Absolute Auto 0.04 K/mm3 (0.02-0.50); Eosinophils Percent Auto 0.5 % (1.0-6.0); Hematocrit 35.9 % (35.0-42.0); Immature Granulocyte Absolute 0.18 K/mm3 (0.00-0.00); Immature Granulocyte Percent A 2.3 % (0.0-0.0); Lymphocytes Absolute Auto 2.25 K/mm3 (1.10-4.50); Lymphocytes Percent Auto 28.6 % (18.0-42.0); Mean Corpuscular HGB Conc 33.4 g/dL (32.0-36.0); Mean Corpuscular Hemoglobin 30.7 pg (27.0-31.0); Mean Corpuscular Volume 91.8 fL (78.0-102.0); Mean Platelet Volume 10.1 fl (9.2-11.8); Monocytes Absolute Auto 1.15 K/mm3 (0.10-0.90); Monocytes Percent Auto 14.6 % (2.0-11.0); Neutrophils Absolute Auto 4.2 K/mm3 (1.7-7.2); Neutrophils Percent Auto 53.6 % (50.0-70.0); Platelet Count Result 160 K/mm3 (150-420); Red Blood Count 3.91 M/mm3 (4.20-5.40); Red Cell Distribution Width 15.5 % (11.6-14.4); White Blood Count 7.9 K/mm3 (4.8-10.8)
[2023-03-21 05:59] VITALS: PULSE 62
[2023-03-21] MEDS: METOPROLOL SUCCINATE EXT REL 50 MG TABCR PO ×2 (05:59→17:05)
[2023-03-21 06:06] LABS: Alanine Aminotransferase 11 U/L (14-59); Albumin Level 1.6 g/dL (3.4-5.0); Alkaline Phosphatase 62 U/L (46-116); Anion Gap 5 mmol/L (8-16); Aspartate Amino Transferase 11 U/L (15-37); Bilirubin,Total 0.3 mg/dL (0.00-1.00); Blood Urea Nitrogen 7 mg/dL (7-18); Calcium 8.4 mg/dL (8.5-10.1); Carbon Dioxide 30 mmol/L (21-32); Chloride 95 mmol/L (98-108); Estimated CRCL calculation 64 ml/min; Estimated Glomerular Filt Rate > 60; Glucose 96 mg/dL (70-99); Osmolality Calculated 268 mOsm/kg (285-295); Potassium 3.9 mmol/L (3.5-5.1); Sodium 130 mmol/L (136-145); Total Protein 5.2 g/dL (6.4-8.2)
[2023-03-21] MEDS: LEVOTHYROXINE SODIUM 88 MCG TABLET PO (06:28)
--- NOTE | 2023-03-21 06:33 | PC.NURSE ---
Patient was sitting in the recliner at the beginning of the shift. She asked to go to bed, but first wanted to use the toilet. Patient walked to be toilet using the GB, wheeled walker, and heavy assist of one. Patient was leaning heavily to one side, and could not straighten herself with verbal or physical prompts. Patient appears to forget what she is doing part way through the walk, and needs reminders to keep walking, hold on to the support in the bathroom, etc. Patient was continent with her first trip to the toilet. She walked back to bed, stating that my arms are really weak tonight . Patient needed help getting her legs into bed, and needed help to pull the covers up. She had difficulty following verbal directions during the assessment, and could not comprehend how to complete tasks she was successful with in the daytime. Patient slept well, only waking up to use the toilet two times. She was incontinent of bowel during her second trip to the toilet, and completed her bowel movement, along with urination, once she reached the toilet. Patient was continent during her last trip to the toilet. Patient's vital signs were WNL, with the exception of her BP, which was 157/95. This result was consistent with previous results. Patient drank her clear ensure prior to going to bed. This was in response to encouragement from the nurse. Patient also drank a small amount of water. Patient needs encouragement to drink and eat, and even then does not always eat or drink.
[2023-03-21 08:00] VITALS: BP 160/80; PULSE 66; RESP 14; TEMP 36.6; O2SAT 97
--- NOTE | 2023-03-21 08:00 | P.PNIM_ITS ---
Progress Note: A&P Assessment and Plan (1) Weakness: Code(s): R53.1 - Weakness Status: Acute Assessment and Plan: 03/17/23: * patient reporting increased weakness and unable to ambulate for at least 1 month * patient lives with her who has cancer and he is unable to care for her, daughter has been coming to the house assisting both mother. * PT/OT ordered * we will check TSH in the morning * poor p.o. intake * hypokalemia hyponatremia on labs * will likely need SNF or swing if appropriate 03/18/23: * TSH 4.60, increased Synthroid to 88 mcg daily * PT and OT to evaluate and start treatment plan * K+ 3.9 today, sodium 136, Magnesium 1.7. Patient given 2 gm of magnesium today. * Likely will require rehab placement 03/19 * Potassium low again, 3.1 will replace orally and schedule daily replacement * weakness likely related to significant malnourishment and total body depletion of potassium 03/20 * Potassium 4.2, sodium down to 130, will continue to trend * PT/OT reevaluation now that patient is inpatient status--will need SNF with potential need for permanent placement?? * 03/21 * will start [facility] * PT/OT * Potassium 3.9 sodium remained the same (2) Adult failure to thrive: Code(s): R62.7 - Adult failure to thrive Status: Acute Assessment and Plan: 03/17/23: * See above plan of care (3) Hyponatremia: Code(s): E87.1 - Hypo-osmolality and hyponatremia Status: Acute Assessment and Plan: 03/17/23: * sodium level today 133, chloride 90 osmolarity 275 * continue to trend * patient receiving IV fluids normal saline with 40 of KCL 03/18/23: * Na+ 136, serum osmolarity 278 * Continue to trend * Continue IVF, will change to just NS @ 100ml/hr 03/20: * Sodium down to 130 again, continue to monitor 03/21 (4) Malnutrition: Qualifiers: Malnutrition type: protein-calorie malnutrition Protein-calorie malnutrition severity: severe Qualified Code(s): E43 - Unspecified severe protein-calorie malnutrition Code(s): E46 - Unspecified protein-calorie malnutrition Status: Acute Assessment and Plan: 03/17/23: * severe malnutrition due to failure to thrive * patient states she has not eaten at all today. * patient states that she lost quite a bit await is unable to tell me exactly how much and what period of time. * Currently with a BMI of 21.1, 54 kg * total protein 5.7, albumin 1.9 * dietitian consulted * patient placed on a heart healthy diet 03/18/23: * No change to current treatment plan 03/19 * Add dietary supplements and liberalize diet to regular * Albumin level 1.7 today, DC IV Fluids (5) Acute hypokalemia: Code(s): E87.6 - Hypokalemia Status: Acute Assessment and Plan: 03/17/23: * Potassium level 2.7 today * IVF normal saline and 40 of KCl infusing * patient was given 40 mEq potassium in the ED * will check labs in the morning 03/18/23: * K+ 3.9 today, no replacement needed * Will change IVF to just NS since KCL corrected * Continue to trend labs 03/19 * Potassium low again, 3.1 will replace orally and schedule daily replacement * Weakness likely related to significant malnourishment and total body depletion of potassium (6) Hypothyroidism: Code(s): E03.9 - Hypothyroidism, unspecified Status: Acute Assessment and Plan: 03/17/23: * continue Synthroid * check TSH in the morning
--- NOTE | 2023-03-21 08:00 | PM.IMPN ---
Progress Note: A&P Assessment and Plan (1) Weakness: Code(s): R53.1 - Weakness Status: Acute Assessment and Plan: 03/17/23: patient reporting increased weakness and unable to ambulate for at least 1 month patient lives with her who has cancer and he is unable to care for her, daughter has been coming to the house assisting both mother. PT/OT ordered we will check TSH in the morning poor p.o. intake hypokalemia hyponatremia on labs will likely need SNF or swing if appropriate 03/18/23: TSH 4.60, increased Synthroid to 88 mcg daily PT and OT to evaluate and start treatment plan K+ 3.9 today, sodium 136, Magnesium 1.7. Patient given 2 gm of magnesium today. Likely will require rehab placement 03/19 Potassium low again, 3.1 will replace orally and schedule daily replacement weakness likely related to significant malnourishment and total body depletion of potassium 03/20 Potassium 4.2, sodium down to 130, will continue to trend PT/OT reevaluation now that patient is inpatient status--will need SNF with potential need for permanent placement?? 03/21 will start [facility] PT/OT Potassium 3.9 sodium remained the same (2) Adult failure to thrive: Code(s): R62.7 - Adult failure to thrive Status: Acute Assessment and Plan: 03/17/23: See above plan of care (3) Hyponatremia: Code(s): E87.1 - Hypo-osmolality and hyponatremia Status: Acute Assessment and Plan: 03/17/23: sodium level today 133, chloride 90 osmolarity 275 continue to trend patient receiving IV fluids normal saline with 40 of KCL 03/18/23: Na+ 136, serum osmolarity 278 Continue to trend Continue IVF, will change to just NS @ 100ml/hr 03/20: Sodium down to 130 again, continue to monitor 03/21 (4) Malnutrition: Qualifiers: Malnutrition type: protein-calorie malnutrition Protein-calorie malnutrition severity: severe Qualified Code(s): E43 - Unspecified severe protein-calorie malnutrition Code(s): E46 - Unspecified protein-calorie malnutrition Status: Acute Assessment and Plan: 03/17/23: severe malnutrition due to failure to thrive patient states she has not eaten at all today. patient states that she lost quite a bit await is unable to tell me exactly how much and what period of time. Currently with a BMI of 21.1, 54 kg total protein 5.7, albumin 1.9 dietitian consulted patient placed on a heart healthy diet 03/18/23: No change to current treatment plan 03/19 Add dietary supplements and liberalize diet to regular Albumin level 1.7 today, DC IV Fluids (5) Acute hypokalemia: Code(s): E87.6 - Hypokalemia Status: Acute Assessment and Plan: 03/17/23: Potassium level 2.7 today IVF normal saline and 40 of KCl infusing patient was given 40 mEq potassium in the ED will check labs in the morning 03/18/23: K+ 3.9 today, no replacement needed Will change IVF to just NS since KCL corrected Continue to trend labs 03/19 Potassium low again, 3.1 will replace orally and schedule daily replacement Weakness likely related to significant malnourishment and total body depletion of potassium (6) Hypothyroidism: Code(s): E03.9 - Hypothyroidism, unspecified Status: Acute Assessment and Plan: 03/17/23: continue Synthroid check TSH in the morning 03/18/23: TSH 4.60 today Increased Synthroid to 88 mcg daily (7) Hypertension: Code(s): I10 - Essential (primary) hypertension Status: Acute Assessment and Plan: 03/17/23: blood pressure ranging 105/56 to 134/45 continue metoprolol 03/18/23: B/P ranging 105/56-135/70 Continue with current treatment plan (8) Depression: Code(s): F32.9 - Major depressive disorder, single episode, unspecified Status: Acute Assessment and Plan: 03/17/23: continue bupropion and Lexap
[2023-03-21] MEDS: ENOXAPARIN 40 MG/0.4 ML SYRINGE SUB-Q (08:47)
[2023-03-21] MEDS: NICOTINE (*PBKC) 14 MG PATCH 1 PATCH TRANSDERM (08:47)
[2023-03-21] MEDS: DICLOFENAC SOD 75 MG TABLET.EC PO (08:47)
[2023-03-21] MEDS: MONTELUKAST SODIUM 5 MG TABLET PO (08:47)
[2023-03-21] MEDS: DIVALPROEX SODIUM DR 250 MG TABEC 500 MG PO (08:48)
[2023-03-21] MEDS: MEGESTROL ACETATE (*CHEMO) 40 MG TABLET PO ×4 (08:48→20:43)
[2023-03-21] MEDS: POTASSIUM CHLORIDE 20 MEQ ER TABLET 40 MEQ PO (08:48)
[2023-03-21] MEDS: ATORVASTATIN 40 MG TABLET BY MOUTH (08:48)
[2023-03-21] MEDS: buPROPion HCL XL (24 HR) 150 MG TABCR 300 MG PO (08:49)
--- NOTE | 2023-03-21 14:30 | PC.NURSE ---
Called to room PT in room and patient and PT were sitting upright on floor. PT stated that the patient had walked to the bathroom and on the way back her walker just got to far in front of her and she went down controlled with therapy helping her. I assisted patient up without difficulty. Patient states she has no pain or injuries and showed me where she had landed which was on the left knee. No open areas or bruising noted.
--- NOTE | 2023-03-21 14:43 | PC.NURSE ---
Called and left message for daughter to call hospital back regarding her mother.
[2023-03-21 14:44] VITALS: BP 171/89; PULSE 72; RESP 14; TEMP 37.1; O2SAT 97
[2023-03-21 16:00] VITALS: BP 151/61; PULSE 65; RESP 16; TEMP 36.3; O2SAT 98
[2023-03-21 17:05] VITALS: PULSE 65
[2023-03-21] MEDS: LOPERAMIDE HCL 2 MG CAPSULE PO (17:07)
[2023-03-21] MEDS: DIVALPROEX SODIUM ER 500 MG TAB.24H 1000 MG PO (20:43)
[2023-03-21] MEDS: traZODone HCL 50 MG TABLET 100 MG PO (20:44)
[2023-03-21] MEDS: ESCITALOPRAM OXALATE 10 MG TABLET PO (20:44)
[2023-03-21] MEDS: MELATONIN 5 MG TABLET PO (20:44)
[2023-03-22] VITALS: BP 149/69; PULSE 66; RESP 16; TEMP 36; O2SAT 97
[2023-03-22 05:21] LABS: Basophils Absolute Auto 0.05 K/mm3 (0.00-0.10); Basophils Percent Auto 0.5 % (0.0-1.0); Eosinophils Absolute Auto 0.05 K/mm3 (0.02-0.50); Eosinophils Percent Auto 0.5 % (1.0-6.0); Hematocrit 39.2 % (35.0-42.0); Hemoglobin 12.8 g/dL (11.7-13.8); Immature Granulocyte Absolute 0.14 K/mm3 (0.00-0.00); Immature Granulocyte Percent A 1.5 % (0.0-0.0); Lymphocytes Absolute Auto 2.45 K/mm3 (1.10-4.50); Lymphocytes Percent Auto 26.3 % (18.0-42.0); Mean Corpuscular HGB Conc 32.7 g/dL (32.0-36.0); Monocytes Absolute Auto 1.34 K/mm3 (0.10-0.90); Monocytes Percent Auto 14.4 % (2.0-11.0); Neutrophils Absolute Auto 5.3 K/mm3 (1.7-7.2); Neutrophils Percent Auto 56.8 % (50.0-70.0); Platelet Count Result 199 K/mm3 (150-420); Red Blood Count 4.26 M/mm3 (4.20-5.40); Red Cell Distribution Width 15.6 % (11.6-14.4); White Blood Count 9.3 K/mm3 (4.8-10.8)
[2023-03-22 05:40] LABS: Alanine Aminotransferase 14 U/L (14-59); Albumin Level 1.8 g/dL (3.4-5.0); Alkaline Phosphatase 67 U/L (46-116); Anion Gap 8 mmol/L (8-16); Aspartate Amino Transferase 18 U/L (15-37); Bilirubin,Total 0.3 mg/dL (0.00-1.00); Blood Urea Nitrogen 6 mg/dL (7-18); Calcium 8.8 mg/dL (8.5-10.1); Carbon Dioxide 30 mmol/L (21-32); Chloride 99 mmol/L (98-108); Estimated CRCL calculation 59 ml/min; Estimated Glomerular Filt Rate > 60; Glucose 75 mg/dL (70-99); Osmolality Calculated 280 mOsm/kg (285-295); Potassium 4.3 mmol/L (3.5-5.1); Sodium 137 mmol/L (136-145); Total Protein 5.8 g/dL (6.4-8.2)
[2023-03-22 05:42] VITALS: PULSE 66
[2023-03-22] MEDS: METOPROLOL SUCCINATE EXT REL 50 MG TABCR PO ×2 (05:42→17:06)
[2023-03-22] MEDS: LEVOTHYROXINE SODIUM 88 MCG TABLET PO (05:42)
[2023-03-22 08:00] VITALS: BP 154/67; PULSE 69; RESP 16; TEMP 35.9; O2SAT 97
[2023-03-22] MEDS: NICOTINE (*PBKC) 14 MG PATCH 1 PATCH TRANSDERM (09:24)
[2023-03-22] MEDS: ENOXAPARIN 40 MG/0.4 ML SYRINGE SUB-Q (09:25)
[2023-03-22] MEDS: buPROPion HCL XL (24 HR) 150 MG TABCR 300 MG PO (09:25)
[2023-03-22] MEDS: POTASSIUM CHLORIDE 20 MEQ ER TABLET 40 MEQ PO (09:26)
[2023-03-22] MEDS: MEGESTROL ACETATE (*CHEMO) 40 MG TABLET PO ×4 (09:27→20:08)
[2023-03-22] MEDS: ATORVASTATIN 40 MG TABLET BY MOUTH (09:27)
[2023-03-22] MEDS: MONTELUKAST SODIUM 5 MG TABLET PO (09:27)
[2023-03-22] MEDS: DIVALPROEX SODIUM DR 250 MG TABEC 500 MG PO (10:59)
[2023-03-22 16:00] VITALS: BP 129/62; PULSE 66; RESP 18; TEMP 36.7; O2SAT 98
[2023-03-22 17:06] VITALS: PULSE 66
[2023-03-22] MEDS: DIVALPROEX SODIUM ER 500 MG TAB.24H 1000 MG PO (20:09)
[2023-03-22] MEDS: traZODone HCL 50 MG TABLET 100 MG PO (20:09)
[2023-03-22] MEDS: ESCITALOPRAM OXALATE 10 MG TABLET PO (20:09)
[2023-03-22] MEDS: MELATONIN 5 MG TABLET PO (20:09)
[2023-03-23] VITALS: BP 157/54; PULSE 66; RESP 18; TEMP 36.3; O2SAT 97
[2023-03-23 05:28] LABS: Basophils Absolute Auto 0.04 K/mm3 (0.00-0.10); Basophils Percent Auto 0.4 % (0.0-1.0); Eosinophils Absolute Auto 0.05 K/mm3 (0.02-0.50); Eosinophils Percent Auto 0.5 % (1.0-6.0); Hematocrit 36.3 % (35.0-42.0); Hemoglobin 12.1 g/dL (11.7-13.8); Immature Granulocyte Absolute 0.16 K/mm3 (0.00-0.00); Immature Granulocyte Percent A 1.5 % (0.0-0.0); Lymphocytes Absolute Auto 2.17 K/mm3 (1.10-4.50); Lymphocytes Percent Auto 20.9 % (18.0-42.0); Mean Corpuscular HGB Conc 33.3 g/dL (32.0-36.0); Mean Corpuscular Hemoglobin 30.6 pg (27.0-31.0); Mean Corpuscular Volume 91.9 fL (78.0-102.0); Mean Platelet Volume 9.8 fl (9.2-11.8); Monocytes Absolute Auto 1.63 K/mm3 (0.10-0.90); Monocytes Percent Auto 15.7 % (2.0-11.0); Neutrophils Absolute Auto 6.3 K/mm3 (1.7-7.2); Platelet Count Result 199 K/mm3 (150-420); Red Blood Count 3.95 M/mm3 (4.20-5.40); Red Cell Distribution Width 15.3 % (11.6-14.4); White Blood Count 10.4 K/mm3 (4.8-10.8)
[2023-03-23 05:41] VITALS: PULSE 70
[2023-03-23] MEDS: LEVOTHYROXINE SODIUM 88 MCG TABLET PO (05:41)
[2023-03-23] MEDS: METOPROLOL SUCCINATE EXT REL 50 MG TABCR PO ×2 (05:41→17:09)
[2023-03-23 05:50] LABS: Alanine Aminotransferase 15 U/L (14-59); Albumin Level 1.7 g/dL (3.4-5.0); Alkaline Phosphatase 70 U/L (46-116); Anion Gap 7 mmol/L (8-16); Aspartate Amino Transferase 23 U/L (15-37); Bilirubin,Total 0.3 mg/dL (0.00-1.00); Blood Urea Nitrogen 5 mg/dL (7-18); Calcium 8.6 mg/dL (8.5-10.1); Carbon Dioxide 29 mmol/L (21-32); Chloride 98 mmol/L (98-108); Estimated CRCL calculation 75 ml/min; Estimated Glomerular Filt Rate > 60; Glucose 94 mg/dL (70-99); Osmolality Calculated 275 mOsm/kg (285-295); Potassium 4.6 mmol/L (3.5-5.1); Sodium 134 mmol/L (136-145); Total Protein 5.5 g/dL (6.4-8.2)
[2023-03-23 08:00] VITALS: BP 152/74; PULSE 68; RESP 20; TEMP 36.3; O2SAT 96
[2023-03-23] MEDS: MEGESTROL ACETATE (*CHEMO) 40 MG TABLET PO ×4 (08:31→20:15)
[2023-03-23] MEDS: POTASSIUM CHLORIDE 20 MEQ ER TABLET 40 MEQ PO (08:31)
[2023-03-23] MEDS: MONTELUKAST SODIUM 5 MG TABLET PO (08:31)
[2023-03-23] MEDS: buPROPion HCL XL (24 HR) 150 MG TABCR 300 MG PO (08:31)
[2023-03-23] MEDS: NICOTINE (*PBKC) 14 MG PATCH 1 PATCH TRANSDERM (08:31)
[2023-03-23] MEDS: DIVALPROEX SODIUM DR 250 MG TABEC 500 MG PO (08:31)
[2023-03-23] MEDS: ATORVASTATIN 40 MG TABLET BY MOUTH (08:31)
[2023-03-23] MEDS: ENOXAPARIN 40 MG/0.4 ML SYRINGE SUB-Q (08:32)
--- NOTE | 2023-03-23 08:35 | PC.NURSE ---
Patient off floor for MRI
--- NOTE | 2023-03-23 09:30 | PC.NURSE ---
Patient returned to floor, transferred to recliner. Call light in reach
--- NOTE | 2023-03-23 11:20 | P.PNIM_ITS ---
Progress Note: A&P Assessment and Plan (1) Weakness: Code(s): R53.1 - Weakness Status: Acute Assessment and Plan: 03/17/23: * patient reporting increased weakness and unable to ambulate for at least 1 month * patient lives with her who has cancer and he is unable to care for her, daughter has been coming to the house assisting both mother. * PT/OT ordered * we will check TSH in the morning * poor p.o. intake * hypokalemia hyponatremia on labs * will likely need SNF or swing if appropriate 03/18/23: * TSH 4.60, increased Synthroid to 88 mcg daily * PT and OT to evaluate and start treatment plan * K+ 3.9 today, sodium 136, Magnesium 1.7. Patient given 2 gm of magnesium today. * Likely will require rehab placement 03/19 * Potassium low again, 3.1 will replace orally and schedule daily replacement * weakness likely related to significant malnourishment and total body depletion of potassium 03/20 * Potassium 4.2, sodium down to 130, will continue to trend * PT/OT reevaluation now that patient is inpatient status--will need SNF with potential need for permanent placement?? * 03/21 * will start [facility] * PT/OT * Potassium 3.9 sodium remained the same * * 03/22 will swing on Monday * MRI in the morning * monitor speech will consult speech 03/22: * Continue with PT and OT * MRI negative for any acute changes, only shown age related changes * Speech consulted, however likely due to dry mouth more than anything. * Plan for swing bed monday (2) Adult failure to thrive: Code(s): R62.7 - Adult failure to thrive Status: Acute Assessment and Plan: 03/17/23: * See above plan of care (3) Altered mental status: Code(s): R41.82 - Altered mental status, unspecified Status: Acute Assessment and Plan: 03/23/23: * MRI negative for any acute changes, only shown age related changes * Neuro examination today essentially negative. Patient is alert and oriented x2, facial features symmetrical, PERRLA, coordination intact, cranial nerves intact, strength equal bilaterally. I found patients mouth to be overly dry. This could be contributing to her abnormal speech. Encourage oral intake or wet her mouth with a sponge. No further neuro work up is warrented at this time. * We will check Urine culture and ABG to make sure she is not retaining CO2 as she has a smoking history, however this is unlikely the cause of her AMS. (4) Hyponatremia: Code(s): E87.1 - Hypo-osmolality and hyponatremia Status: Acute Assessment and Plan: 03/17/23: * sodium level today 133, chloride 90 osmolarity 275 * continue to trend * patient receiving IV fluids normal saline with 40 of KCL 03/18/23: * Na+ 136, serum osmolarity 278 * Continue to trend * Continue IVF, will change to just NS @ 100ml/hr 03/20: * Sodium down to 130 again, continue to monitor 03/23: * Sodium 134 * Continue to trend (5) Malnutrition: Qualifiers: Malnutrition type: protein-calorie malnutrition Protein-calorie malnutrition severity: severe Qualified Code(s): E43 - Unspecified severe protein-calorie malnutrition Code(s): E46 - Unspecified protein-calorie malnutrition Status: Acute Assessment and Plan: 03/17/23: * severe malnutrition due to failure to thrive * patient states she has not eaten at all today. * patient states that she lost quite a bit await is unable to tell me exactly how much and what period of time. *
--- NOTE | 2023-03-23 11:20 | PM.IMPN ---
Progress Note: A&P Assessment and Plan (1) Weakness: Code(s): R53.1 - Weakness Status: Acute Assessment and Plan: 03/17/23: patient reporting increased weakness and unable to ambulate for at least 1 month patient lives with her who has cancer and he is unable to care for her, daughter has been coming to the house assisting both mother. PT/OT ordered we will check TSH in the morning poor p.o. intake hypokalemia hyponatremia on labs will likely need SNF or swing if appropriate 03/18/23: TSH 4.60, increased Synthroid to 88 mcg daily PT and OT to evaluate and start treatment plan K+ 3.9 today, sodium 136, Magnesium 1.7. Patient given 2 gm of magnesium today. Likely will require rehab placement 03/19 Potassium low again, 3.1 will replace orally and schedule daily replacement weakness likely related to significant malnourishment and total body depletion of potassium 03/20 Potassium 4.2, sodium down to 130, will continue to trend PT/OT reevaluation now that patient is inpatient status--will need SNF with potential need for permanent placement?? 03/21 will start [facility] PT/OT Potassium 3.9 sodium remained the same 03/22 will swing on Monday MRI in the morning monitor speech will consult speech 03/22: Continue with PT and OT MRI negative for any acute changes, only shown age related changes Speech consulted, however likely due to dry mouth more than anything. Plan for swing bed monday (2) Adult failure to thrive: Code(s): R62.7 - Adult failure to thrive Status: Acute Assessment and Plan: 03/17/23: See above plan of care (3) Altered mental status: Code(s): R41.82 - Altered mental status, unspecified Status: Acute Assessment and Plan: 03/23/23: MRI negative for any acute changes, only shown age related changes Neuro examination today essentially negative. Patient is alert and oriented x2, facial features symmetrical, PERRLA, coordination intact, cranial nerves intact, strength equal bilaterally. I found patients mouth to be overly dry. This could be contributing to her abnormal speech. Encourage oral intake or wet her mouth with a sponge. No further neuro work up is warrented at this time. We will check Urine culture and ABG to make sure she is not retaining CO2 as she has a smoking history, however this is unlikely the cause of her AMS. (4) Hyponatremia: Code(s): E87.1 - Hypo-osmolality and hyponatremia Status: Acute Assessment and Plan: 03/17/23: sodium level today 133, chloride 90 osmolarity 275 continue to trend patient receiving IV fluids normal saline with 40 of KCL 03/18/23: Na+ 136, serum osmolarity 278 Continue to trend Continue IVF, will change to just NS @ 100ml/hr 03/20: Sodium down to 130 again, continue to monitor 03/23: Sodium 134 Continue to trend (5) Malnutrition: Qualifiers: Malnutrition type: protein-calorie malnutrition Protein-calorie malnutrition severity: severe Qualified Code(s): E43 - Unspecified severe protein-calorie malnutrition Code(s): E46 - Unspecified protein-calorie malnutrition Status: Acute Assessment and Plan: 03/17/23: severe malnutrition due to failure to thrive patient states she has not eaten at all today. patient states that she lost quite a bit await is unable to tell me exactly how much and what period of time. Currently with a BMI of 21.1, 54 kg total protein 5.7, albumin 1.9 dietitian consulted patient placed on a heart healthy diet 03/18/23: No change to current treatment plan 03/19 Add dietary supplements and liberalize diet to regular Albumin level 1.7 today, DC IV Fluids 03/23: Continue with current treatment plan (6) Acute hypokalemia: Code(s): E87.6 - Hypokalemia Status: Acute Assessment and Plan: 03/17/23: Potassium level 2.7 today IVF nor
[2023-03-23 11:33] LABS: Base Excess ABG 4.4 mmol/L (0-2); HCO3 ABG 27.6 mmol/L (23-29); Oxygen Saturation ABG 96.6 % (95-97); Oxyhemoglobin 96.1 % (94-100); PCO2 ABG 36.5 mmHg (35-45); PO2 ABG 83.7 mmHg (75-85); Total Hemoglobin 13.3 g/dL (12.0-18.0)
[2023-03-23 11:34] LABS: Device ROOM AIR; Modified Allen's Test Pass; Site Drawn RIGHT RADIAL
[2023-03-23 12:44] LABS: Ammonia 13 umol/L (11-32)
--- NOTE | 2023-03-23 13:06 | PC.NURSE ---
Called Dr Hughes office to attempt to find out what type of specialist he referred patient to in [place].
--- NOTE | 2023-03-23 13:16 | PC.NURSE ---
Spoke to Schedule Analyst at Dr. Hughes office. January Maritza had an appointment at [facility] with a Vascular Surgeon due to her PVD.
[2023-03-23 16:00] VITALS: BP 115/62; PULSE 68; RESP 18; TEMP 36.6; O2SAT 97
[2023-03-23 17:09] VITALS: PULSE 68
[2023-03-23] MEDS: MELATONIN 5 MG TABLET PO (20:15)
[2023-03-23] MEDS: DIVALPROEX SODIUM ER 500 MG TAB.24H 1000 MG PO (20:15)
[2023-03-23] MEDS: traZODone HCL 50 MG TABLET 100 MG PO (20:16)
[2023-03-23] MEDS: ESCITALOPRAM OXALATE 10 MG TABLET PO (20:16)
[2023-03-24] VITALS: BP 128/64; PULSE 66; RESP 16; TEMP 36.6; O2SAT 96
--- NOTE | 2023-03-24 05:00 | PC.NURSE ---
Patient was already in bed at the start of the shift. Patient appeared tired. Up to the bedside commode 1 time. Patient continues to lean to the right while attempting to walk with GB, WW, and assist of 1. Earlier today, patient had to use the Krystyna Stedy, as it was not safe to walk with her. Patient continues to be slow to answer questions. Patient appeared to have long and short term memory issues, which makes retaining of instruction difficult. She has some incontinence. She used the bedside commode, but her depends were already wet. Patient had a difficult time swallowing her depakote tonight, as the pill is fairly large. Patient's vitals are WNL. Her lab results were also WNL for the most part. Patient slept well.
[2023-03-24 05:47] LABS: Hematocrit 33.8 % (35.0-42.0); Hemoglobin 11.3 g/dL (11.7-13.8); Mean Corpuscular HGB Conc 33.4 g/dL (32.0-36.0); Mean Corpuscular Hemoglobin 30.1 pg (27.0-31.0); Mean Corpuscular Volume 90.1 fL (78.0-102.0); Mean Platelet Volume 9.5 fl (9.2-11.8); Platelet Count Result 208 K/mm3 (150-420); Red Blood Count 3.75 M/mm3 (4.20-5.40); White Blood Count 10.6 K/mm3 (4.8-10.8)
[2023-03-24 06:11] LABS: Alanine Aminotransferase 32 U/L (14-59); Albumin Level 1.6 g/dL (3.4-5.0); Alkaline Phosphatase 54 U/L (46-116); Anion Gap 7 mmol/L (8-16); Aspartate Amino Transferase 25 U/L (15-37); Bilirubin,Total 0.4 mg/dL (0.00-1.00); Blood Urea Nitrogen 5 mg/dL (7-18); Calcium 8.2 mg/dL (8.5-10.1); Carbon Dioxide 27 mmol/L (21-32); Chloride 95 mmol/L (98-108); Estimated CRCL calculation 79 ml/min; Estimated Glomerular Filt Rate > 60; Glucose 91 mg/dL (70-99); Osmolality Calculated 265 mOsm/kg (285-295); Potassium 4.5 mmol/L (3.5-5.1); Sodium 129 mmol/L (136-145); Total Protein 5.4 g/dL (6.4-8.2)
[2023-03-24 06:17] VITALS: PULSE 68
[2023-03-24] MEDS: LEVOTHYROXINE SODIUM 88 MCG TABLET PO (06:17)
[2023-03-24] MEDS: METOPROLOL SUCCINATE EXT REL 50 MG TABCR PO (06:17)
[2023-03-24 06:23] LABS: Band Neutrophils Percent 0 % (0-6); Eosinophils Percent Manual 1 % (1-6); Lymphocytes Percent Manual 17 % (18-44); Monocytes Absolute Manual 2.12 K/mm3 (0.1-0.90); Monocytes Percent Manual 20 % (3-9); Neutrophils Absolute Manual 6.57 K/mm3 (1.7-7.2); Neutrophils Percent Manual 62 % (46-73); Platelet Estimate Adequate (Adequate); Total Cells Counted 100
[2023-03-24 08:00] VITALS: BP 124/64; PULSE 68; RESP 18; TEMP 36.6; O2SAT 96
[2023-03-24] MEDS: MONTELUKAST SODIUM 5 MG TABLET PO (08:44)
[2023-03-24] MEDS: POTASSIUM CHLORIDE 20 MEQ ER TABLET 40 MEQ PO (08:44)
[2023-03-24] MEDS: MEGESTROL ACETATE (*CHEMO) 40 MG TABLET PO ×2 (08:44→13:23)
[2023-03-24] MEDS: DIVALPROEX SODIUM DR 250 MG TABEC 500 MG PO (08:44)
[2023-03-24] MEDS: ATORVASTATIN 40 MG TABLET BY MOUTH (08:45)
[2023-03-24] MEDS: NICOTINE (*PBKC) 14 MG PATCH 1 PATCH TRANSDERM (08:45)
[2023-03-24] MEDS: buPROPion HCL XL (24 HR) 150 MG TABCR 300 MG PO (08:45)
[2023-03-24] MEDS: ENOXAPARIN 40 MG/0.4 ML SYRINGE SUB-Q (09:15)
[2023-03-24] MEDS: SODIUM CHLORIDE 0.9% IV 1,000 ML 100 ML IV CONT (10:33)
--- NOTE | 2023-03-24 13:31 | PC.NURSE ---
at this time she is alert and talkative. claims they had trouble getting her back to bed. claims she could not stand at all. claims nursed used the machine to get her there. points at [facility]. claims i feel better at this time.
--- NOTE | 2023-03-24 15:10 | P.DS_ITS ---
DS: Admitting Diagnosis Discharge Date 03/24/23 Admitting Diagnosis Slurred speech DS: Discharge Diagnosis Discharge Diagnosis (1) Weakness: Code(s): R53.1 - Weakness Status: Acute Assessment and Plan: 03/17/23: * patient reporting increased weakness and unable to ambulate for at least 1 month * patient lives with her who has cancer and he is unable to care for her, daughter has been coming to the house assisting both mother. * PT/OT ordered * we will check TSH in the morning * poor p.o. intake * hypokalemia hyponatremia on labs * will likely need SNF or swing if appropriate 03/18/23: * TSH 4.60, increased Synthroid to 88 mcg daily * PT and OT to evaluate and start treatment plan * K+ 3.9 today, sodium 136, Magnesium 1.7. Patient given 2 gm of magnesium today. * Likely will require rehab placement 03/19 * Potassium low again, 3.1 will replace orally and schedule daily replacement * weakness likely related to significant malnourishment and total body depletion of potassium 03/20 * Potassium 4.2, sodium down to 130, will continue to trend * PT/OT reevaluation now that patient is inpatient status--will need SNF with potential need for permanent placement?? * 03/21 * will start [facility] * PT/OT * Potassium 3.9 sodium remained the same * * 03/22 will swing on Monday * MRI in the morning * monitor speech will consult speech (2) Adult failure to thrive: Code(s): R62.7 - Adult failure to thrive Status: Acute Assessment and Plan: 03/17/23: * See above plan of care (3) Hyponatremia: Code(s): E87.1 - Hypo-osmolality and hyponatremia Status: Acute Assessment and Plan: 03/17/23: * sodium level today 133, chloride 90 osmolarity 275 * continue to trend * patient receiving IV fluids normal saline with 40 of KCL 03/18/23: * Na+ 136, serum osmolarity 278 * Continue to trend * Continue IVF, will change to just NS @ 100ml/hr 03/20: * Sodium down to 130 again, continue to monitor 03/21 (4) Malnutrition: Qualifiers: Malnutrition type: protein-calorie malnutrition Protein-calorie malnutrition severity: severe Qualified Code(s): E43 - Unspecified severe protein-calorie malnutrition Code(s): E46 - Unspecified protein-calorie malnutrition Status: Acute Assessment and Plan: 03/17/23: * severe malnutrition due to failure to thrive * patient states she has not eaten at all today. * patient states that she lost quite a bit await is unable to tell me exactly how much and what period of time. * Currently with a BMI of 21.1, 54 kg * total protein 5.7, albumin 1.9 * dietitian consulted * patient placed on a heart healthy diet 03/18/23: * No change to current treatment plan 03/19 * Add dietary supplements and liberalize diet to regular * Albumin level 1.7 today, DC IV Fluids (5) Acute hypokalemia: Code(s): E87.6 - Hypokalemia Status: Acute Assessment and Plan: 03/17/23: * Potassium level 2.7 today * IVF normal saline and 40 of KCl infusing * patient was given 40 mEq potassium in the ED * will check labs in the morning 03/18/23: * K+ 3.9 today, no replacement needed * Will change IVF to just NS since KCL corrected * Continue to trend labs 03/19 * Potassium low again, 3.1 will replace orally and schedule daily replacement * Weakness likely related to significant malnourishment and total body depletion of
--- NOTE | 2023-03-24 15:10 | PM.DS ---
DS: Admitting Diagnosis Discharge Date 03/24/23 Admitting Diagnosis Slurred speech DS: Discharge Diagnosis Discharge Diagnosis (1) Weakness: Code(s): R53.1 - Weakness Status: Acute Assessment and Plan: 03/17/23: patient reporting increased weakness and unable to ambulate for at least 1 month patient lives with her who has cancer and he is unable to care for her, daughter has been coming to the house assisting both mother. PT/OT ordered we will check TSH in the morning poor p.o. intake hypokalemia hyponatremia on labs will likely need SNF or swing if appropriate 03/18/23: TSH 4.60, increased Synthroid to 88 mcg daily PT and OT to evaluate and start treatment plan K+ 3.9 today, sodium 136, Magnesium 1.7. Patient given 2 gm of magnesium today. Likely will require rehab placement 03/19 Potassium low again, 3.1 will replace orally and schedule daily replacement weakness likely related to significant malnourishment and total body depletion of potassium 03/20 Potassium 4.2, sodium down to 130, will continue to trend PT/OT reevaluation now that patient is inpatient status--will need SNF with potential need for permanent placement?? 03/21 will start [facility] PT/OT Potassium 3.9 sodium remained the same 03/22 will swing on Monday MRI in the morning monitor speech will consult speech (2) Adult failure to thrive: Code(s): R62.7 - Adult failure to thrive Status: Acute Assessment and Plan: 03/17/23: See above plan of care (3) Hyponatremia: Code(s): E87.1 - Hypo-osmolality and hyponatremia Status: Acute Assessment and Plan: 03/17/23: sodium level today 133, chloride 90 osmolarity 275 continue to trend patient receiving IV fluids normal saline with 40 of KCL 03/18/23: Na+ 136, serum osmolarity 278 Continue to trend Continue IVF, will change to just NS @ 100ml/hr 03/20: Sodium down to 130 again, continue to monitor 03/21 (4) Malnutrition: Qualifiers: Malnutrition type: protein-calorie malnutrition Protein-calorie malnutrition severity: severe Qualified Code(s): E43 - Unspecified severe protein-calorie malnutrition Code(s): E46 - Unspecified protein-calorie malnutrition Status: Acute Assessment and Plan: 03/17/23: severe malnutrition due to failure to thrive patient states she has not eaten at all today. patient states that she lost quite a bit await is unable to tell me exactly how much and what period of time. Currently with a BMI of 21.1, 54 kg total protein 5.7, albumin 1.9 dietitian consulted patient placed on a heart healthy diet 03/18/23: No change to current treatment plan 03/19 Add dietary supplements and liberalize diet to regular Albumin level 1.7 today, DC IV Fluids (5) Acute hypokalemia: Code(s): E87.6 - Hypokalemia Status: Acute Assessment and Plan: 03/17/23: Potassium level 2.7 today IVF normal saline and 40 of KCl infusing patient was given 40 mEq potassium in the ED will check labs in the morning 03/18/23: K+ 3.9 today, no replacement needed Will change IVF to just NS since KCL corrected Continue to trend labs 03/19 Potassium low again, 3.1 will replace orally and schedule daily replacement Weakness likely related to significant malnourishment and total body depletion of potassium (6) Hypothyroidism: Code(s): E03.9 - Hypothyroidism, unspecified Status: Acute Assessment and Plan: 03/17/23: continue Synthroid check TSH in the morning 03/18/23: TSH 4.60 today Increased Synthroid to 88 mcg daily (7) Hypertension: Code(s): I10 - Essential (primary) hypertension Status: Acute Assessment and Plan: 03/17/23: blood pressure ranging 105/56 to 134/45 continue metoprolol 03/18/23: B/P ranging 105/56-135/70 Continue with current treatment plan (8)
--- NOTE | 2023-03-24 16:18 | PC.NURSE ---
[id number] ks from inpatient status to skilled swing bed at this time.
== END 2023-03-24 14:58 | disposition swing bed (61) | DRG 640 ==
LOC: CHSED 16:22 → CHS2ND 17:15
PROVIDERS: Nurse Practitioner Acute Care; Admitting Provider Internal Medicine; Emergency Provider Emergency Medicine; PCP Family Medicine; Visit Provider Internal Medicine
DX: R62.7 Adult failure to thrive (principal); E43 Unspecified severe protein-calorie malnutrition; E87.1 Hypo-osmolality and hyponatremia; E87.6 Hypokalemia; I71.21 Aneurysm of the ascending aorta, without rupture; I10 Essential (primary) hypertension; I73.9 Peripheral vascular disease, unspecified; E78.5 Hyperlipidemia, unspecified; E03.9 Hypothyroidism, unspecified; G62.9 Polyneuropathy, unspecified; F31.9 Bipolar disorder, unspecified; F17.210 Nicotine dependence, cigarettes, uncomplicated; Z79.899 Other long term (current) drug therapy
CPT/HCPCS: 36415; 36600; 70553; 71045; 80053; 80164; 80165; 81001; 82140; 82550; 82805; 83735; 84145; 84443; 85025; 87077; 87086; 87088; 87186; 93005; 96125; 96365; 96366; 96367; 96372; 97110; 97161; 97165; 97530; 97535; 99285; A9270; A9577; G0378; J1650; J3475; J7030

== ENCOUNTER 2023-03-24 14:59 | Inpatient (IN) | payer MEDICARE, SELFPAY ==
[2023-03-24 15:49] VITALS: BMI 19.7
[2023-03-24 16:07] VITALS: BP 133/52; PULSE 70; RESP 16; TEMP 36.7; O2SAT 97
--- NOTE | 2023-03-24 16:11 | ADMGEN ---
This patient, Maritza Noriega, was admitted to 2nd Floor Room 202-1. Patient/family oriented to hospital policies and general routines including ID bracelet, bed and alarms, visiting hours, pain management, procedures, bathroom and other care routines, personal items, smoking policy, room service/diet, and visiting hours. Pt changed from in pt to swing at [id number]. Belongings in room, alarms on, call light in reach Information on how to activate the Rapid Response Team has been discussed. Patient/Family are encouraged to report perceived risks to care and to ask questions if they do not understand what they are told or what they should do.
[2023-03-24 17:09] VITALS: PULSE 70
[2023-03-24] MEDS: METOPROLOL SUCCINATE EXT REL 50 MG TABCR PO (17:09)
[2023-03-24] MEDS: MEGESTROL ACETATE (*CHEMO) 40 MG TABLET PO ×2 (17:09→20:13)
--- NOTE | 2023-03-24 17:11 | PC.NURSE ---
Marketing Database Coordinator aware of [facility] concerns.
[2023-03-24] MEDS: DIVALPROEX SODIUM ER 500 MG TAB.24H 1000 MG PO (20:12)
[2023-03-24] MEDS: traZODone HCL 50 MG TABLET 100 MG PO (20:13)
[2023-03-24] MEDS: ESCITALOPRAM OXALATE 10 MG TABLET PO (20:13)
[2023-03-25] VITALS: BP 130/64; PULSE 70; RESP 14; TEMP 37; O2SAT 94
[2023-03-25] MEDS: DICLOFENAC SOD 75 MG TABLET.EC PO (05:41)
[2023-03-25] MEDS: LEVOTHYROXINE SODIUM 75 MCG TABLET PO (05:47)
[2023-03-25 05:50] LABS: Hematocrit 33.1 % (35.0-42.0); Hemoglobin 11.3 g/dL (11.7-13.8); Mean Corpuscular HGB Conc 34.1 g/dL (32.0-36.0); Mean Corpuscular Hemoglobin 30.2 pg (27.0-31.0); Mean Corpuscular Volume 88.5 fL (78.0-102.0); Mean Platelet Volume 9.4 fl (9.2-11.8); Platelet Count Result 260 K/mm3 (150-420); Red Blood Count 3.74 M/mm3 (4.20-5.40); Red Cell Distribution Width 15.1 % (11.6-14.4); White Blood Count 11.6 K/mm3 (4.8-10.8)
[2023-03-25 06:02] LABS: Anion Gap 6 mmol/L (8-16); Blood Urea Nitrogen 4 mg/dL (7-18); Calcium 8.6 mg/dL (8.5-10.1); Carbon Dioxide 29 mmol/L (21-32); Chloride 93 mmol/L (98-108); Estimated CRCL calculation 78 ml/min; Estimated Glomerular Filt Rate > 60; Glucose 88 mg/dL (70-99); Osmolality Calculated 261 mOsm/kg (285-295); Potassium 4.4 mmol/L (3.5-5.1); Sodium 128 mmol/L (136-145)
[2023-03-25 08:00] VITALS: BP 142/60; PULSE 67; RESP 15; TEMP 36.1; O2SAT 100
--- NOTE | 2023-03-25 08:45 | PM.IMHP ---
H&P: HPI History of Present Illness Date/Time: 03/25/23 08:45 Chief Complaint: Weakness, Failure to thrive Narrative: This is a 67 year old female with a significant past medical history of AAA, depression, bipolar disorder, hyperlipidemia, hypertension, hypothyroidism, peripheral neuropathy, tobacco abuse, seasonal allergies, and cataracts who presented to the hospital with complaints of weakness.? Patient states that she has been weak for the past month where she is unable to stand or get up by herself.? Patient family is unable to care of her as there are a lot of family issue at home as her is home dying of cancer . Patient while here has been treated for failure to thrive, hyponatremia, bradycardia. Patient has been working with phsyical therapy and attempt to get stronger . I am unsure if this will change or if this is patient new normal she would benefit from a neurology consult as a outpatient. I also reviewed medication and this may be caused from [facility] medication at this time we see how she does with phsyical therapy. Review of Systems Review of Systems: weakness, leaning, aphasic All systems reviewed & are unremarkable except as noted in HPI and below PMFSH Past Medical History Medical History (Updated 03/23/23 @ 11:43 by Sri Wilson APRN) Ascending aortic aneurysm Bipolar disorder Cataracts, bilateral Depression Hyperlipidemia Hypertension Hypothyroidism Malnutrition On valproic acid therapy Peripheral vascular disease Seasonal allergies Tobacco abuse Surgical History Surgical History History of carpal tunnel surgery Social History Social History Smoking packs per day: 0.5 Smoking cigarettes per day: 10.0 Years smoked: 40 Smoking pack-years: 20.00 Smoking status: Unknown if ever smoked Tobacco type: cigarettes Alcohol intake: unknown Substance use: never Substance use type: does not use Do You Feel Safe in your Home?: Yes Lack of Transportation: No Lack of Food: Never True Current Housing: I Have Housing Concerned About Future Housing: No Difficulty Paying Gas/Electric Bills: No Difficulty Paying for Meds: No Currently Unemployed: No Education: High School Diploma/GED Difficulty w/ Childcare or Family Care: No Living arrangements: with family Additional living arrangements comments: . 3 adult children. Spiritual care concerns: No Meds Home Medications and Allergies Home Medications Medication Instructions Recorded Confirmed Type divalproex 500 mg tablet,delayed 500 mg PO DAILY 03/25/19 03/24/23 History release trazodone 50 mg tablet 100 mg PO HS 03/25/19 03/24/23 History meclizine 12.5 mg tablet 12.5 mg PO TID PRN dizziness #30 04/22/22 03/24/23 Rx tabs atorvastatin 40 mg tablet See Rx Instructions .Route 03/06/23 03/24/23 Rx .COMPLEX #90 tabs psyllium husk 0.4 gram capsule 0.4 g PO DAILY #30 caps 03/15/23 03/24/23 Rx (Metamucil) bupropion HCl 150 mg 24 hr tablet, 300 mg PO DAILY 03/17/23 03/24/23 History extended release diclofenac sodium 75 mg 75 mg PO BID PRN Pain (Scale Score 03/17/23 03/24/23 History tablet,delayed release 4-6) divalproex 500 mg tablet,extended 1,000 mg PO HS 03/17/23 03/24/23 History release 24 hr escitalopram oxalate 10 mg tablet 10 mg PO HS 03/17/23 03/24/23 History levothyroxine 75 mcg tablet 75 mcg PO DAILY 03/17/23 03/24/23 History metoprolol succinate 50 mg 50 mg PO BID 03/17/23 03/24/23 History tablet,extended release 24 hr montelukast 5 mg chewable tablet 5 mg PO DAILY 03/17/23 03/24/23 History enoxaparin 40 mg/0.4 mL 40 mg (0.4 mL) subcut DAILY #4 mL 03/24/23 03/24/23 Rx subcutaneous syringe (Lovenox) megestrol 40 mg tablet 40 mg PO QID #30 tabs 03/24/23 03/24/23 Rx nicotine 14 mg/24 hr daily 1 patch transdermal DAILY #14 ea 03/24/23
[2023-03-25] MEDS: PSYLLIUM POWDER PACKET 1 PACKET BY MOUTH (08:54)
[2023-03-25] MEDS: MEGESTROL ACETATE (*CHEMO) 40 MG TABLET PO ×4 (08:55→20:34)
[2023-03-25] MEDS: buPROPion HCL XL (24 HR) 150 MG TABCR PO (08:55)
[2023-03-25] MEDS: ENOXAPARIN 40 MG/0.4 ML SYRINGE SUB-Q (08:55)
[2023-03-25] MEDS: DIVALPROEX SODIUM ER 500 MG TAB.24H PO (08:55)
[2023-03-25] MEDS: POTASSIUM CHLORIDE 20 MEQ ER TABLET 40 MEQ PO (08:55)
[2023-03-25 08:56] VITALS: PULSE 68
[2023-03-25] MEDS: ATORVASTATIN 40 MG TABLET BY MOUTH (08:56)
[2023-03-25] MEDS: NICOTINE (*PBKC) 14 MG PATCH 1 PATCH TRANSDERM (08:56)
[2023-03-25] MEDS: METOPROLOL SUCCINATE EXT REL 50 MG TABCR PO ×2 (08:56→16:55)
[2023-03-25] MEDS: MONTELUKAST SODIUM 5 MG TABLET PO (08:56)
[2023-03-25] MEDS: SODIUM CHLORIDE 1 GM TABLET PO ×2 (09:19→16:55)
[2023-03-25 16:00] VITALS: BP 136/52; PULSE 74; RESP 15; TEMP 36.1; O2SAT 100
[2023-03-25 16:55] VITALS: PULSE 74
[2023-03-25] MEDS: DIVALPROEX SODIUM ER 500 MG TAB.24H 1000 MG PO (20:35)
[2023-03-25] MEDS: ESCITALOPRAM OXALATE 10 MG TABLET PO (20:35)
[2023-03-25] MEDS: traZODone HCL 50 MG TABLET 100 MG PO (20:35)
[2023-03-25] MEDS: ACETAMINOPHEN 325 MG TABLET 650 MG PO (20:35)
[2023-03-25 23:10] VITALS: BP 136/82; PULSE 67; RESP 18; TEMP 36.3; O2SAT 96
[2023-03-26] MEDS: LEVOTHYROXINE SODIUM 75 MCG TABLET PO (06:38)
[2023-03-26 08:00] VITALS: BP 150/70; PULSE 63; RESP 17; TEMP 36.3; O2SAT 93
[2023-03-26] MEDS: ATORVASTATIN 40 MG TABLET BY MOUTH (10:52)
[2023-03-26] MEDS: ENOXAPARIN 40 MG/0.4 ML SYRINGE SUB-Q (10:52)
[2023-03-26] MEDS: POTASSIUM CHLORIDE 20 MEQ ER TABLET 40 MEQ PO (10:52)
[2023-03-26] MEDS: PSYLLIUM POWDER PACKET 1 PACKET BY MOUTH (10:52)
[2023-03-26] MEDS: MEGESTROL ACETATE (*CHEMO) 40 MG TABLET PO ×3 (10:52→20:27)
[2023-03-26 10:53] VITALS: PULSE 68
[2023-03-26] MEDS: METOPROLOL SUCCINATE EXT REL 50 MG TABCR PO ×2 (10:53→17:39)
[2023-03-26] MEDS: DIVALPROEX SODIUM ER 500 MG TAB.24H PO (10:53)
[2023-03-26] MEDS: SODIUM CHLORIDE 1 GM TABLET PO ×2 (10:53→17:39)
[2023-03-26] MEDS: buPROPion HCL XL (24 HR) 150 MG TABCR PO (10:54)
[2023-03-26] MEDS: MONTELUKAST SODIUM 5 MG TABLET PO (10:54)
[2023-03-26] MEDS: NICOTINE (*PBKC) 14 MG PATCH 1 PATCH TRANSDERM (10:54)
[2023-03-26 16:00] VITALS: BP 128/60; PULSE 78; RESP 17; TEMP 36.3; O2SAT 95
[2023-03-26 17:39] VITALS: PULSE 70
[2023-03-26] MEDS: traZODone HCL 50 MG TABLET 100 MG PO (20:27)
[2023-03-26] MEDS: DIVALPROEX SODIUM ER 500 MG TAB.24H 1000 MG PO (20:27)
[2023-03-26] MEDS: ESCITALOPRAM OXALATE 10 MG TABLET PO (20:27)
[2023-03-26 23:16] VITALS: BP 160/66; PULSE 64; RESP 16; TEMP 36.6; O2SAT 97
[2023-03-27] MEDS: LEVOTHYROXINE SODIUM 75 MCG TABLET PO (06:27)
[2023-03-27 07:31] LABS: Hematocrit 36.1 % (35.0-42.0); Hemoglobin 12.3 g/dL (11.7-13.8); Mean Corpuscular HGB Conc 34.1 g/dL (32.0-36.0); Mean Corpuscular Hemoglobin 30.6 pg (27.0-31.0); Mean Corpuscular Volume 89.8 fL (78.0-102.0); Mean Platelet Volume 9.2 fl (9.2-11.8); Platelet Count Result 398 K/mm3 (150-420); Red Blood Count 4.02 M/mm3 (4.20-5.40); Red Cell Distribution Width 14.9 % (11.6-14.4); White Blood Count 12.1 K/mm3 (4.8-10.8)
[2023-03-27 07:41] LABS: Blood Urea Nitrogen 5 mg/dL (7-18); Calcium 9.1 mg/dL (8.5-10.1); Carbon Dioxide 30 mmol/L (21-32); Estimated CRCL calculation 62 ml/min; Estimated Glomerular Filt Rate > 60; Glucose 84 mg/dL (70-99)
--- NOTE | 2023-03-27 07:41 | PM.EVENT ---
Event Note Event Note Event Note: right ear has fluid noted with clear fluid and a scratch in the inner ear left has some cerum noted.
[2023-03-27 07:46] LABS: Anion Gap 6 mmol/L (8-16); Chloride 87 mmol/L (98-108); Osmolality Calculated 252 mOsm/kg (285-295); Potassium 4.9 mmol/L (3.5-5.1); Sodium 123 mmol/L (136-145)
[2023-03-27 07:57] VITALS: BP 115/77; PULSE 64; RESP 16; TEMP 35.9; O2SAT 95
[2023-03-27] MEDS: POTASSIUM CHLORIDE 20 MEQ ER TABLET 40 MEQ PO (08:16)
[2023-03-27] MEDS: SODIUM CHLORIDE 1 GM TABLET PO ×2 (08:16→16:59)
[2023-03-27] MEDS: ENOXAPARIN 40 MG/0.4 ML SYRINGE SUB-Q (08:16)
[2023-03-27] MEDS: MEGESTROL ACETATE (*CHEMO) 40 MG TABLET PO ×4 (08:17→20:14)
[2023-03-27] MEDS: buPROPion HCL XL (24 HR) 150 MG TABCR PO (08:18)
[2023-03-27] MEDS: MONTELUKAST SODIUM 5 MG TABLET PO (08:18)
[2023-03-27 08:19] VITALS: PULSE 64
[2023-03-27] MEDS: METOPROLOL SUCCINATE EXT REL 50 MG TABCR PO (08:19)
[2023-03-27] MEDS: ATORVASTATIN 40 MG TABLET BY MOUTH (08:19)
[2023-03-27] MEDS: NICOTINE (*PBKC) 14 MG PATCH 1 PATCH TRANSDERM (08:19)
[2023-03-27] MEDS: DIVALPROEX SODIUM ER 500 MG TAB.24H PO (08:24)
[2023-03-27] MEDS: PSYLLIUM POWDER PACKET 1 PACKET BY MOUTH (08:24)
[2023-03-27] MEDS: LORATADINE 5 MG TABLET PO (09:12)
[2023-03-27 10:15] VITALS: O2SAT 0
[2023-03-27] MEDS: MECLIZINE HCL 12.5 MG TABLET PO (15:05)
[2023-03-27 16:00] VITALS: BP 97/63; PULSE 65; RESP 16; TEMP 36.7; O2SAT 98
[2023-03-27 16:58] VITALS: PULSE 65
[2023-03-27 20:00] VITALS: PULSE 65; RESP 16; O2SAT 98
[2023-03-27] MEDS: traZODone HCL 50 MG TABLET 100 MG PO (20:14)
[2023-03-27] MEDS: ESCITALOPRAM OXALATE 10 MG TABLET PO (20:15)
[2023-03-27] MEDS: ACETAMINOPHEN 325 MG TABLET 650 MG PO (20:15)
[2023-03-27] MEDS: DIVALPROEX SODIUM ER 500 MG TAB.24H 1000 MG PO (20:15)
[2023-03-28] VITALS (8 sets, daily range): BP systolic 110–144; BP diastolic 72–84; PULSE 66–73; RESP 16–17; TEMP 36.4–37.1; O2SAT 20–99
[2023-03-28] MEDS: LEVOTHYROXINE SODIUM 75 MCG TABLET PO (05:27)
[2023-03-28 05:32] LABS: Hematocrit 34.7 % (35.0-42.0); Hemoglobin 11.9 g/dL (11.7-13.8); Mean Corpuscular HGB Conc 34.3 g/dL (32.0-36.0); Mean Corpuscular Hemoglobin 30.4 pg (27.0-31.0); Mean Corpuscular Volume 88.7 fL (78.0-102.0); Mean Platelet Volume 8.8 fl (9.2-11.8); Platelet Count Result 380 K/mm3 (150-420); Red Blood Count 3.91 M/mm3 (4.20-5.40); Red Cell Distribution Width 14.4 % (11.6-14.4); White Blood Count 11.6 K/mm3 (4.8-10.8)
[2023-03-28 05:43] LABS: Anion Gap 6 mmol/L (8-16); Blood Urea Nitrogen 5 mg/dL (7-18); Calcium 8.6 mg/dL (8.5-10.1); Carbon Dioxide 28 mmol/L (21-32); Chloride 87 mmol/L (98-108); Estimated CRCL calculation 62 ml/min; Estimated Glomerular Filt Rate > 60; Glucose 88 mg/dL (70-99); Osmolality Calculated 248 mOsm/kg (285-295); Potassium 4.6 mmol/L (3.5-5.1); Sodium 121 mmol/L (136-145)
--- NOTE | 2023-03-28 07:32 | P.PNCROSS_ITS ---
Event Note Event Note Event Note: Labs reviewed today. WBC 11.6, Sodium 121, Chloride 87, serum osmolarity 248. O rder placed for urine osmolarity, urine sodium, and placed patient on 1500ml fluid restriction. Patient has severe protein malnutrition with poor intake- suspect tea and toast due to lack of solute in diet, can also be caused by use of valproic acid, however her levels were normal on last check, and has hypothyroidism as she was found to have a TSH level of 4.60. She was placed on salt tabs 1000mg BID which has not helped her sodium level and she was started on synthroid this admission which will take a while to correct.
[2023-03-28 08:14] LABS: Vitamin B12 930 pg/mL (193-986)
[2023-03-28] MEDS: NICOTINE (*PBKC) 14 MG PATCH 1 PATCH TRANSDERM (08:48)
[2023-03-28] MEDS: ENOXAPARIN 40 MG/0.4 ML SYRINGE SUB-Q (08:49)
[2023-03-28] MEDS: SODIUM CHLORIDE 1 GM TABLET PO ×2 (08:51→17:47)
[2023-03-28] MEDS: MEGESTROL ACETATE (*CHEMO) 40 MG TABLET PO ×4 (08:51→20:49)
[2023-03-28] MEDS: POTASSIUM CHLORIDE 20 MEQ ER TABLET 40 MEQ PO (08:51)
[2023-03-28] MEDS: DIVALPROEX SODIUM ER 500 MG TAB.24H PO (08:52)
[2023-03-28] MEDS: MONTELUKAST SODIUM 5 MG TABLET PO (08:52)
[2023-03-28] MEDS: LORATADINE 5 MG TABLET PO (08:52)
[2023-03-28] MEDS: buPROPion HCL XL (24 HR) 150 MG TABCR PO (08:52)
[2023-03-28] MEDS: ATORVASTATIN 40 MG TABLET BY MOUTH (08:52)
[2023-03-28] MEDS: METOPROLOL SUCCINATE EXT REL 50 MG TABCR PO ×2 (08:53→17:47)
[2023-03-28] MEDS: PSYLLIUM POWDER PACKET 1 PACKET BY MOUTH (08:53)
[2023-03-28] MEDS: MECLIZINE HCL 12.5 MG TABLET PO (09:22)
[2023-03-28 12:19] LABS: Sodium Urine Random 44 mmol/L (20-110)
--- OUTSIDE RECORDS SUMMARY | 2023-03-28 13:51 | XMS_ITS | Continuity of Care Document ---
Author Name Unknown Address [address] [place] [id number] Phone [facility] Address [address] [place] [phone] Phone Support Name Relationship Address Phone FATIMAH Lozano Primary Care Provider [address] [place] [address] DO Louis Hughes Primary Care Provider [address] [place] [address] Franco, Sweta Attending Provider [address] [place] [address] MD Ayleen [facility] Provider [place] [address] MD Bipin Antonio [place] [address] MIRANDA Wilson [place] [address] MIRANDA Mejia [place] [address] FATIMAH Nguyen Other Provider [address] [place] [address] MD Dayron Piper V. Other Provider [place] [address] DO Lazaro Zavala Other Provider [address] [facility] e [address] [place] [address] MD Stanley Marquez [place] [address] Care Teams Patient Care Team Team Status: Active Member Role Status Dates Louis Hughes DO Primary Care Provider Active Visit Care Team Team Status: Inactive Member Role Status Dates Louis Hughes DO Primary Care Provider, Kwasi shipman Provider Active Visit Care Team Team Status
--- NOTE | 2023-03-28 19:36 | PC.NURSE ---
Family here, states that pt has . Family concerned d/t pt previous history of attempting to hurt herself. Will monitor pt for s/sx increased depression.
[2023-03-28] MEDS: DIVALPROEX SODIUM ER 500 MG TAB.24H 1000 MG PO (20:49)
[2023-03-28] MEDS: traZODone HCL 50 MG TABLET 100 MG PO (20:49)
[2023-03-28] MEDS: ACETAMINOPHEN 325 MG TABLET 650 MG PO (20:49)
[2023-03-28] MEDS: ESCITALOPRAM OXALATE 10 MG TABLET PO (21:06)
[2023-03-29] MEDS: LEVOTHYROXINE SODIUM 75 MCG TABLET PO (06:04)
[2023-03-29 08:00] VITALS: BP 109/57; PULSE 76; RESP 14; TEMP 36.3; O2SAT 96
[2023-03-29] MEDS: POTASSIUM CHLORIDE 20 MEQ ER TABLET 40 MEQ PO (08:14)
[2023-03-29] MEDS: DIVALPROEX SODIUM ER 500 MG TAB.24H PO (08:15)
[2023-03-29] MEDS: NICOTINE (*PBKC) 14 MG PATCH 1 PATCH TRANSDERM (09:13)
[2023-03-29] MEDS: LORATADINE 5 MG TABLET PO (09:13)
[2023-03-29 09:14] VITALS: PULSE 88
[2023-03-29] MEDS: METOPROLOL SUCCINATE EXT REL 50 MG TABCR PO ×2 (09:14→17:08)
[2023-03-29] MEDS: ATORVASTATIN 40 MG TABLET BY MOUTH (09:14)
[2023-03-29] MEDS: SODIUM CHLORIDE 1 GM TABLET PO ×2 (09:14→17:08)
[2023-03-29] MEDS: MEGESTROL ACETATE (*CHEMO) 40 MG TABLET PO ×3 (09:15→21:14)
[2023-03-29] MEDS: MONTELUKAST SODIUM 5 MG TABLET PO (09:15)
[2023-03-29] MEDS: buPROPion HCL XL (24 HR) 150 MG TABCR PO (09:15)
[2023-03-29 10:36] LABS: Anion Gap 6 mmol/L (8-16); Blood Urea Nitrogen 8 mg/dL (7-18); Calcium 8.6 mg/dL (8.5-10.1); Carbon Dioxide 28 mmol/L (21-32); Chloride 88 mmol/L (98-108); Estimated CRCL calculation 67 ml/min; Estimated Glomerular Filt Rate > 60; Glucose 78 mg/dL (70-99); Osmolality Calculated 251 mOsm/kg (285-295); Potassium 4.2 mmol/L (3.5-5.1); Sodium 122 mmol/L (136-145)
[2023-03-29 16:00] VITALS: BP 136/76; PULSE 82; RESP 18; TEMP 36.6; O2SAT 95
--- NOTE | 2023-03-29 16:40 | P.PNCROSS_ITS ---
Event Note Event Note Event Note: Hyponatremia noted with sodium of 121 yesterday and BMP repeated today with so dium of 122. Ordered baseline cortisol level but this must be a send out. If cortisol is a send out it is not possible to get a diagnostic cosyntropin stem test. Urine labs sent for sodium creatinine urea. [facility] for transfer to acute care for nephrology consult for hyponatremia. At this time patient is placed on a wait list with anticipated couple days. Clinically patient remains the same still very confused somewhat weak but is participating with therapy. Unfortunately, patient's just and she has history of known depression uncertain how she will handle this news but we will continue to monitor closely. At this time we plan to keep swing bed status until patient can be transferred but if her situation worsens we will change to acute care while waiting transfer. GENERAL: Calm, alert, slightly confused and slightly weak, thin, malnourished appearing HEAD: Normocephalic, atraumatic. ENT:? Mucous membranes moist. CHEST: Clear to auscultation.? No respiratory distress. HEART: Regular rate and rhythm. ? Normal peripheral pulses. ABDOMEN: Soft, nontender, nondistended. EXTREMITIES: Normal range of motion. No peripheral edema. SKIN: Warm dry normal color NEURO: Alert to recent baseline which is slightly confused, moves all extremities, mildly ataxic gait PSYCH: flat affect
[2023-03-29 17:08] VITALS: PULSE 82
[2023-03-29] MEDS: DIVALPROEX SODIUM ER 500 MG TAB.24H 1000 MG PO (21:14)
[2023-03-29] MEDS: traZODone HCL 50 MG TABLET 100 MG PO (21:14)
[2023-03-29] MEDS: ESCITALOPRAM OXALATE 10 MG TABLET PO (21:14)
[2023-03-29 23:35] VITALS: BP 116/70; PULSE 70; RESP 18; TEMP 36.6; O2SAT 96
[2023-03-30] MEDS: LEVOTHYROXINE SODIUM 75 MCG TABLET PO (05:58)
[2023-03-30 07:45] VITALS: BP 101/63; PULSE 66; RESP 16; TEMP 35.9; O2SAT 98
[2023-03-30] MEDS: ACETAMINOPHEN 325 MG TABLET 650 MG PO (09:21)
[2023-03-30] MEDS: ENOXAPARIN 40 MG/0.4 ML SYRINGE SUB-Q (09:21)
[2023-03-30] MEDS: NICOTINE (*PBKC) 14 MG PATCH 1 PATCH TRANSDERM (09:21)
[2023-03-30 09:22] VITALS: PULSE 66
[2023-03-30] MEDS: METOPROLOL SUCCINATE EXT REL 50 MG TABCR PO ×2 (09:22→17:32)
[2023-03-30] MEDS: POTASSIUM CHLORIDE 20 MEQ ER TABLET 40 MEQ PO (09:22)
[2023-03-30] MEDS: LORATADINE 5 MG TABLET PO (09:22)
[2023-03-30] MEDS: PSYLLIUM POWDER PACKET 1 PACKET BY MOUTH (09:22)
[2023-03-30] MEDS: ATORVASTATIN 40 MG TABLET BY MOUTH (09:22)
[2023-03-30] MEDS: MEGESTROL ACETATE (*CHEMO) 40 MG TABLET PO ×4 (09:22→20:58)
[2023-03-30] MEDS: DIVALPROEX SODIUM ER 500 MG TAB.24H PO (09:22)
[2023-03-30] MEDS: buPROPion HCL XL (24 HR) 150 MG TABCR PO (09:22)
[2023-03-30] MEDS: MONTELUKAST SODIUM 5 MG TABLET PO (09:22)
[2023-03-30] MEDS: SODIUM CHLORIDE 1 GM TABLET PO ×3 (09:22→17:32)
[2023-03-30 12:15] VITALS: O2SAT 50
[2023-03-30 13:19] LABS: Osmolality, Urine 315 mOsm/kg (50-1200)
--- NOTE | 2023-03-30 15:20 | PM.IMPN ---
Progress Note: A&P Assessment and Plan (1) Altered mental status: Code(s): R41.82 - Altered mental status, unspecified Status: Acute Assessment and Plan: intermittently waxes and wanes (2) Hyponatremia: Code(s): E87.1 - Hypo-osmolality and hyponatremia Status: Acute Assessment and Plan: add salt tabs and monitor pt does not take in enough to be fluid overload /: Increased to sodium tabs to 1 g TID (3) Bipolar disorder: Code(s): F31.9 - Bipolar disorder, unspecified Status: Acute Assessment and Plan: continue home medication and monitor for exacerbation valproic acid will need to be checked (4) Malnutrition: Qualifiers: Malnutrition type: protein-calorie malnutrition Protein-calorie malnutrition severity: severe Qualified Code(s): E43 - Unspecified severe protein-calorie malnutrition Code(s): E46 - Unspecified protein-calorie malnutrition Status: Acute Assessment and Plan: megace to see if it helps with appetitie continue to offer small frequent and foods pt and picker feeder with her fingers. (5) Acute hypokalemia: Code(s): E87.6 - Hypokalemia Status: Acute Assessment and Plan: monitor level and replenish as indicated (6) Hyperlipidemia: Code(s): E78.5 - Hyperlipidemia, unspecified Status: Acute Assessment and Plan: continue home medication (7) Adult failure to thrive: Code(s): R62.7 - Adult failure to thrive Status: Acute Assessment and Plan: Patient is working with therapy but will still likely require long-term placement after hospitalization. (8) Weakness: Code(s): R53.1 - Weakness Status: Acute Assessment and Plan: PT/OT continue Time Spent With Patient Time: Bedside conversation with patient and family members regarding need for transfer for sustained hyponatremia. Time with patient: Greater than 35 minutes Subjective Date/time seen: 03/30/23 15:20 Interval history: Repeat labs show sustained a significant hyponatremia. Patient continues to be confused and having difficulty with balance. She is participating with physical therapy but still requires significant assistance to assure that she does not fall. Noted that patient is on multiple medications for behavioral health. At this time valproic acid level is a send out but will need to be checked. Additionally patient is on levothyroxine and escitalopram. Additionally her diet intake has been suboptimal. I discussed with hardwood floor installer at [place] Dr. Ngo who stated that patient needs further lab workups that cannot be accomplished at a timely manner at [facility] and is recommending transfer. Request for transfer to [facility] has been processed through the front of house manager and is anticipated sometime on the afternoon of March 31 based on peak census. Dr. Ngo recommended salt tabs be increased to 1 g 3 times daily as a conservative measure and recheck sodium daily until transfer can be processed. He wants to avoid 3% saline at this time a until further diagnostics are completed. Review of Systems Review of Systems: All systems reviewed & are unremarkable except as noted in HPI and below Exam Narrative: GENERAL: ? thin, malnourished appearing, weak appearing HEAD:? Normocephalic, atraumatic. ENT:? Mucous membranes moist. CHEST:? Clear to auscultation.? No respiratory distress. HEART:? Regular rate and rhythm. ? Normal peripheral pulses. ABDOMEN: Soft, nontender, nondistended. EXTREMITIES:? Normal range of motion.? No peripheral edema. SKIN:? Warm dry normal color NEURO:? Alert and oriented x3. ataxic gait PSYCH:? Normal mood and affec Objective Data Vital Signs Vital Signs: Vital Signs - 24 hr 03/29/23 17:08 03/29/23 16:00 03/29/23 23:35 Temperature 36.6 C 36.6 C Pulse Rate 82 82 70 Respiratory Rate 18 18 Blood Pressure
[2023-03-30 16:40] VITALS: BP 140/66; PULSE 74; RESP 16; TEMP 36.4; O2SAT 96
[2023-03-30 17:32] VITALS: PULSE 74
[2023-03-30 18:30] LABS: Urea Random Urine 350 MG/DL
[2023-03-30] MEDS: traZODone HCL 50 MG TABLET 100 MG PO (20:58)
[2023-03-30] MEDS: DIVALPROEX SODIUM ER 500 MG TAB.24H 1000 MG PO (20:58)
[2023-03-30] MEDS: ESCITALOPRAM OXALATE 10 MG TABLET PO (20:58)
[2023-03-30 23:36] VITALS: BP 135/82; PULSE 76; RESP 14; TEMP 36.6; O2SAT 97
[2023-03-31 05:53] LABS: Anion Gap 7 mmol/L (8-16); Blood Urea Nitrogen 11 mg/dL (7-18); Calcium 8.2 mg/dL (8.5-10.1); Carbon Dioxide 25 mmol/L (21-32); Chloride 94 mmol/L (98-108); Estimated CRCL calculation 79 ml/min; Estimated Glomerular Filt Rate > 60; Glucose 90 mg/dL (70-99); Osmolality Calculated 261 mOsm/kg (285-295); Potassium 4.6 mmol/L (3.5-5.1); Sodium 126 mmol/L (136-145)
[2023-03-31 05:54] LABS: Thyroid Stimulating Hormone Reflex 2.83 u/IU/mL (0.36-3.74)
[2023-03-31] MEDS: LEVOTHYROXINE SODIUM 75 MCG TABLET PO (06:25)
[2023-03-31 07:40] VITALS: BP 118/60; PULSE 73; RESP 16; TEMP 36.3; O2SAT 95
[2023-03-31 09:30] VITALS: PULSE 68
[2023-03-31] MEDS: MONTELUKAST SODIUM 5 MG TABLET PO (09:30)
[2023-03-31] MEDS: ATORVASTATIN 40 MG TABLET BY MOUTH (09:30)
[2023-03-31] MEDS: POTASSIUM CHLORIDE 20 MEQ ER TABLET 40 MEQ PO (09:30)
[2023-03-31] MEDS: NICOTINE (*PBKC) 14 MG PATCH 1 PATCH TRANSDERM (09:30)
[2023-03-31] MEDS: METOPROLOL SUCCINATE EXT REL 50 MG TABCR PO (09:30)
[2023-03-31] MEDS: SODIUM CHLORIDE 1 GM TABLET PO ×2 (09:30→14:04)
[2023-03-31] MEDS: ENOXAPARIN 40 MG/0.4 ML SYRINGE SUB-Q (09:30)
[2023-03-31] MEDS: buPROPion HCL XL (24 HR) 150 MG TABCR PO (09:31)
[2023-03-31] MEDS: LORATADINE 5 MG TABLET PO (09:31)
[2023-03-31] MEDS: MEGESTROL ACETATE (*CHEMO) 40 MG TABLET PO ×2 (09:31→14:05)
[2023-03-31] MEDS: DIVALPROEX SODIUM ER 500 MG TAB.24H PO (09:31)
--- NOTE | 2023-03-31 13:57 | PM.DS ---
DS: Admitting Diagnosis Discharge Date 03/31/2023 Admitting Diagnosis altered mental status, bipolar disorder, malnutrition, hyponatremia, acute hypokalemia, hyperlipidemia, adult failure to thrive, weakness DS: Discharge Diagnosis Discharge Diagnosis (1) Altered mental status: Code(s): R41.82 - Altered mental status, unspecified Status: Acute Assessment and Plan: intermittently waxes and wanes (2) Hyponatremia: Code(s): E87.1 - Hypo-osmolality and hyponatremia Status: Acute Assessment and Plan: add salt tabs and monitor pt does not take in enough to be fluid overload 03/30: Increased to sodium tabs to 1 g TID (3) Bipolar disorder: Code(s): F31.9 - Bipolar disorder, unspecified Status: Acute Assessment and Plan: continue home medication and monitor for exacerbation valproic acid will need to be checked (4) Malnutrition: Qualifiers: Malnutrition type: protein-calorie malnutrition Protein-calorie malnutrition severity: severe Qualified Code(s): E43 - Unspecified severe protein-calorie malnutrition Code(s): E46 - Unspecified protein-calorie malnutrition Status: Acute Assessment and Plan: megace to see if it helps with appetitie continue to offer small frequent and foods pt and slat pickler with her fingers. (5) Acute hypokalemia: Code(s): E87.6 - Hypokalemia Status: Acute Assessment and Plan: monitor level and replenish as indicated (6) Hyperlipidemia: Code(s): E78.5 - Hyperlipidemia, unspecified Status: Acute Assessment and Plan: continue home medication (7) Adult failure to thrive: Code(s): R62.7 - Adult failure to thrive Status: Acute Assessment and Plan: Patient is working with therapy but will still likely require long-term placement after hospitalization. (8) Weakness: Code(s): R53.1 - Weakness Status: Acute Assessment and Plan: PT/OT continue DS: Summary Hospital Course Reason for hospitalization: swing bed for rehabilitation Hospital Course: This is a 67-year-old female patient with history of bipolar disorder altered mental status weakness hypo thyroidism hypokalemia chronic smoker was admitted to swing bed status for PT and OT after acute hospitalization for altered mental status and UTI. Patient received full course of treatment for UTI. She has been working with therapy but still remains slightly ataxic gait with a propensity to want to lean backwards. She remains intermittently altered very flat affect and often has to be instructed each step to. Sodium has been down trending since acute hospitalization 3 days ago was found to be 121. She was placed on a fluid restriction diet and started on salt tabs. Sodium went up to 122 yesterday and phone conversation was held with Nephrology regarding transfer to acute care for further workup and assistance in managing hyponatremia which may improve her overall mental status. Dr. Makayla manning agreed that patient requires transfer. No beds were available until today. Yesterday nephrology recommended we increase sodium tabs to 1 g 3 times daily. He states that the next step would be to discontinue Lexapro. Today inpatient bed became available at [facility]. Patient transferred by BLS ambulance. Status at Discharge Cognitive/behavioral status at discharge: Awake responding verbally, following commands remains confused and pleasant, mental status does frequently waxing waning Functional status at discharge: uses cane/walker Overall status at discharge: patient is not back to baseline Time Spent with Patient Time attestation: Total time spent providing and/or coordinating discharge services: 45 minutes Time spent: Greater than 30 minutes Exam Narrative: GENERAL: ? thin, malnourished appearing, weak appearing HEAD:? Normocephalic, atraumatic. ENT:? Mucous membranes moist. CHEST:? Clear
--- NOTE | 2023-03-31 14:35 | PC.NURSE ---
Report called to [facility]. Patient transferring to room 300.
--- NOTE | 2023-03-31 14:37 | PC.NURSE ---
Called [facility] ambulance for BLS transfer to [facility]
--- NOTE | 2023-03-31 15:05 | PC.NURSE ---
Patient being transferred to [facility]. EMS here to transport patient. Patient transferred from chair to stretcher with 2 assist. All belongings gathered together and sent with patient. Report given to EMS along with transfer paperwork. Rosmery has no IV at time of transfer. Patient left floor via stretcher. Cleopatra at [place] called to inform patient has been picked up by ambulance. Patient denies any questions about transfer. Daughter Seda aware of transfer, provided with room number 300 patient is transferring to.
[2023-04-01 07:47] LABS: Cortisol Baseline 14.8 mcg/dL (***)
== END 2023-03-31 15:05 | disposition short-term general hospital (02) | DRG 947 ==
PROVIDERS: Nurse Practitioner; Nurse Practitioner Acute Care; Nurse Practitioner Family; Admitting Provider Internal Medicine; PCP Family Medicine; Visit Provider Internal Medicine
DX: R53.1 Weakness (principal); E43 Unspecified severe protein-calorie malnutrition; Z68.1 Body mass index [BMI] 19.9 or less, adult; E87.1 Hypo-osmolality and hyponatremia; E87.6 Hypokalemia; R62.7 Adult failure to thrive; I10 Essential (primary) hypertension; I71.40 Abdominal aortic aneurysm, without rupture, unspecified; I73.9 Peripheral vascular disease, unspecified; E78.5 Hyperlipidemia, unspecified; E03.9 Hypothyroidism, unspecified; G62.9 Polyneuropathy, unspecified; F31.9 Bipolar disorder, unspecified; Z87.891 Personal history of nicotine dependence
CPT/HCPCS: 36415; 80048; 82533; 82607; 83935; 84300; 84443; 84540; 85027; 92507; 96125; 97110; 97161; 97165; 97530; 97535; A9270; J1650

== ENCOUNTER 2023-03-31 16:26 | Inpatient (IN) | payer MEDICARE, SELFPAY ==
--- NOTE | ~2023-03-31 | CT_ITS ---
EXAMINATION: CTA brain carotid DATE: 04/03/2023 04:47 INDICATION: Acute neurological changes. TECHNIQUE: Computed tomographic angiography (CTA) of the head was performed with 100 mL Omnipaque-350 intravenous contrast. CTA of the neck was performed with intravenous contrast. Automated exposure co ntrol and iterative reconstruction technique were employed. The dose-length product was 1018.78 mGy-c m. Maximum intensity projection and volume rendered 3D-reconstructions were created by the Solulink st on a separate workstation. COMPARISON: Head CT 11/23/2020, CTA chest 04/05/2019 FINDINGS: HEAD CTA: There is no intracranial hemorrhage, acute infarction, or abnormal intracranial mass lesion . The ventricles are normal in size. There are likely changes of ocular lens replacement surgeries. T he mastoid air cells are normal. The paranasal sinuses are clear. The vertebral arteries are codomina nt. There is no significant stenosis of basilar artery or the posterior cerebral arteries. The counter intelligence agent ior communicating arteries are normal. There is no significant stenosis of the intracranial internal carotid arteries or anterior or middle cerebral arteries. Anterior communicating artery is normal. Th ere is no aneurysm. NECK CTA: There is mild emphysema. There are no pathologically enlarged lymph nodes. There is ectasia of the aortic arch measuring 3.8 cm. There is total occlusion of the proximal vertebral arteries wit h reconstitution. There is plaque in the proximal internal carotid arteries. There is 0% stenosis of the proximal right internal carotid artery relative to normal distal artery lumen diameter (NASCET cr iteria). There is 0% stenosis of the proximal left internal carotid artery relative to normal distal artery lumen diameter. There is severe cervical spondylosis. IMPRESSION: 1. Normal brain. 2. No aneurysm or significant intracranial arterial stenosis. 3. 0% stenosis of the proximal internal carotid arteries relative to normal distal artery lumen diame ters (NASCET criteria). 4. 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 Reviewed, dictated and finalized at location E. E SHEAR OPERATOR IMPRESSION: 1. Normal brain. 2. No aneurysm or significant intracranial arterial stenosis. 3. 0% stenosis of the proximal internal carotid arteries relative to normal dis sebastian artery lumen diameters (NASCET criteria). 4. 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
--- NOTE | ~2023-03-31 | MR_ITS ---
EXAMINATION: MR brain/brain stem wo/w con DATE: 04/03/2023 12:52 INDICATION: Altered mental status. TECHNIQUE: Magnetic resonance imaging (MRI) of the brain and brainstem was performed without and with 10 mL MultiHance intravenous contrast. COMPARISON: Head CT 04/03/2023 FINDINGS: There are scattered areas of nonspecific increased T2-weighted signal intensity in the cere bral white matter, which is within normal limits for the patient's age. There is no intracranial hemo rrhage, acute infarction, or abnormal intracranial mass lesion. The ventricles are normal in size. Th e paranasal sinuses are clear. There are likely changes of ocular lens replacement surgeries. The mas toid air cells are normal. IMPRESSION: 1. Normal aging brain. Reviewed, dictated and finalized at location E. ESTATE AGENCY PRINCIPAL IMPRESSION: 1. Normal aging brain.
--- NOTE | ~2023-03-31 | XR_ITS ---
EXAMINATION: XR chest 1V portable INDICATION: Shortness of breath TECHNIQUE: Portable AP chest at 0812 hours COMPARISON: 03/17/2023 FINDINGS: The lungs are free of acute opacities. No pleural effusion or pneumothorax. The cardiomedia stinal silhouette is normal. Cranial migration of the humeral heads with respect to the glenoids like ly reflects chronic rotator cuff tears. IMPRESSION: 1. No acute cardiopulmonary abnormality. Reviewed, dictated and finalized at location F. ECTIONAL SUPERVISOR
--- NOTE | ~2023-03-31 | CT_ITS ---
EXAMINATION: CT brain wo con DATE: 04/03/2023 04:47 INDICATION: Acute neurological change. TECHNIQUE: Computed tomography (CT) of the head was performed without intravenous contrast. The mA wa s adjusted according to patient size. Iterative reconstruction technique was employed. The dose-lengt h product was 681.00 mGy-cm. COMPARISON: Head CT 11/23/2020, brain MRI 03/23/2023 FINDINGS: There are scattered areas of low attenuation in the cerebral white matter, which is within normal limits for the patient's age. There is no intracranial hemorrhage, acute infarction, or abnorm al intracranial mass lesion. The ventricles are normal in size. The paranasal sinuses are clear. Ther e are likely changes of ocular lens replacement surgeries. The mastoid air cells are normal. IMPRESSION: 1. Normal aging brain. Reviewed, dictated and finalized at location E. TER PATENT IMPRESSION: 1. Normal aging brain.
--- NOTE | ~2023-03-31 | MR_ITS ---
EXAMINATION: MRA neck wo/w con DATE: 04/03/2023 12:53 INDICATION: Stroke. Altered mental status. TECHNIQUE: Magnetic resonance angiography (MRA) of the neck was performed without and with 10 mL Mult iHance intravenous contrast. COMPARISON: CTA neck 06/02/2023 FINDINGS: Motion artifact is noted. There is 0% stenosis of the proximal right internal carotid artery relativ e to normal distal artery lumen diameter (NASCET criteria). There is 0% stenosis of the proximal lef t internal carotid artery relative to normal distal artery lumen diameter. There is total occlusion o f the proximal vertebral arteries with reconstitution. The distal vertebral arteries are obscured by motion artifact. IMPRESSION: 1. 0% stenosis of the proximal internal carotid arteries relative to normal distal artery lumen diame ters (NASCET criteria). 2. 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 Distal vertebral arteries obscured by motion artifact. Reviewed, dictated and finalized at location E. MACHINE FEEDER IMPRESSION: 1. 0% stenosis of the proximal internal carotid arteries relative to normal dis sebastian artery lumen diameters (NASCET criteria). 2. 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 Dist al vertebral arteries obscured by motion artifact.
--- NOTE | ~2023-03-31 | MR_ITS ---
EXAMINATION: MRA brain wo con DATE: 04/03/2023 12:53 INDICATION: Ataxia. Slurred speech. Abnormal gait. TECHNIQUE: Magnetic resonance angiography (MRA) of the brain was performed without intravenous contra st with T1-weighted SPGR by the 3D [id number] technique. Maximum intensity projection 3D-reconstr uctions were obtained. COMPARISON: CTA 04/03/2023 FINDINGS: Motion artifact is noted. The vertebral arteries and basilar artery are small and obscured by motion artifact. There is no significant stenosis of the intracranial internal carotid arteries, posterior c ommunicating arteries, or posterior cerebral arteries. The middle cerebral arteries obscured beyond t he M1 segments due to motion artifact. There is no significant stenosis of the anterior cerebral li zeus. Anterior communicating artery is normal. There is no aneurysm. IMPRESSION: 1. No aneurysm or significant intracranial arterial stenosis identified. Note that the vertebral li zeus, basilar artery, and middle cerebral arteries obscured by motion artifact. Reviewed, dictated and finalized at location E. ING AGENCY MANAGER IMPRESSION: 1. No aneurysm or significant intracranial arterial stenosis identified. Note t hat the vertebral arteries, basilar artery, and middle cerebral arteries obscur ed by motion artifact.
--- NOTE | 2023-03-31 16:22 | ADMGEN ---
This patient, Maritza Noriega, was admitted to [facility] Surg Room 300-01. Patient/family oriented to hospital policies and general routines including ID bracelet, bed and alarms, visiting hours, pain management, procedures, bathroom and other care routines, personal items, smoking policy, room service/diet, and visiting hours. Information on how to activate the Rapid Response Team has been discussed. Patient/Family are encouraged to report perceived risks to care and to ask questions if they do not understand what they are told or what they should do. IV LAC #20
--- NOTE | 2023-03-31 16:25 | PM.IMHP ---
H&P: HPI History of Present Illness Date/Time: 03/31/23 16:25 Chief Complaint: hyponatremia, confusion Narrative: This is a 67-year-old female patient with history of bipolar disorder altered mental status weakness hypothyroidism hypokalemia chronic smoker AAA peripheral neuropathy seasonal allergies cataracts and hyperlipidemia who is admitted to our hospital for hyponatremia that has been worsening over the last 2 weeks. Patient has been a rehab patient due to weakness and altered ambulatory gait. She had previously been admitted at another hospital for urinary tract infection completed course of care for such and has been receiving PT and OT for rehabilitation. Screening labs were obtained which showed a drop of sodium to 121 couple of days ago. Transfer was attempted at that time but no beds were available. Patient was instituted on a fluid restriction diet and salt tabs added. Over the course the next couple days she has slowly increased to 126 but the facility she was at was unable to get prompt turnaround labs necessary to determine cause of hyponatremia. Nephrology was consulted and agreed with transfer yesterday. He also recommended increasing sodium tabs to 1 g t.i.d.. Now the patient has arrived here nephrology will again be contacted for assistance in managing. We will repeat some labs to get a more accurate current process. Patient waxes and wanes with her confusion and weakness. There has been talk about whether she will require [facility] placement but the plan currently is for the patient to go with her daughter after discharge. Appetite has been low so she was started on Megace 4 times daily along with dietary supplements t.i.d. with meals. She is on regular diet so as not to calorie or sodium restrict this time. patient denies any pain or acute needs at this time. I met with patient family regarding plan care including Nephrology consult repeating labs in urine. Additionally, we will stop patient's escitalopram as a potential contributing factor for hyponatremia. We will also repeat valproic acid level as patient had a dose escalation in January 2023 and last borderline elevated. Patient stay may be complicated due to of her in the last couple of days while patient was swing bed as well as family disagreement related to financial affairs regarding patient and her just . Review of Systems Review of Systems: All systems reviewed & are unremarkable except as noted in HPI and below PMFSH Past Medical History Medical History Ascending aortic aneurysm Bipolar disorder Cataracts, bilateral Depression Hyperlipidemia Hypertension Hypothyroidism Malnutrition On valproic acid therapy Peripheral vascular disease Seasonal allergies Tobacco abuse Surgical History Surgical History History of carpal tunnel surgery Social History Social History Smoking packs per day: 0.5 Smoking cigarettes per day: 10.0 Years smoked: 40 Smoking pack-years: 20.00 Smoking status: Unknown if ever smoked Alcohol intake: unknown Substance use: never Substance use type: does not use Do You Feel Safe in your Home?: Yes Lack of Transportation: No Lack of Food: Never True Current Housing: I Have Housing Concerned About Future Housing: No Difficulty Paying Gas/Electric Bills: No Difficulty Paying for Meds: No Currently Unemployed: No Education: High School Diploma/GED Difficulty w/ Childcare or Family Care: No Living arrangements: with family Additional living arrangements comments: . 3 adult children. Spiritual care concerns: No Meds Home Medications and Allergies Home Medications Medication Instructions Recorded Confirmed Type divalproex 500 mg tablet,delayed 500 mg PO DAILY 01
[2023-03-31 17:39] LABS: Basophils Absolute Auto 0.1 K/mm3 (0.0-0.1); Eosinophils Absolute Auto 0.1 K/mm3 (0-0.3); Eosinophils Percent Auto 0.4 % (0-4.4); Hematocrit 31.9 % (37.0-47.0); Hemoglobin 10.3 g/dL (12.0-15.0); Immature Granulocyte Percent A 1.8 % (0-0.5); Lymphocytes Absolute Auto 2.58 K/mm3 (0.9-3.2); Lymphocytes Percent Auto 23.1 % (18.3-44.2); Mean Corpuscular HGB Conc 32.3 g/dl (32-36); Mean Corpuscular Hemoglobin 30.7 pg (26-34); Mean Corpuscular Volume 95.2 fl (80-100); Mean Platelet Volume 8.9 fl (7.4-10.4); Monocytes Absolute Auto 1.6 K/mm3 (0.1-0.6); Monocytes Percent Auto 13.9 % (2.6-8.5); Neutrophils Absolute Auto 6.7 K/mm3 (1.3-6.7); Neutrophils Percent Auto 59.8 % (45.5-73.1); Platelet Count Result 420 k/mm3 (150-375); Red Blood Count 3.35 M/mm3 (4.2-5.4); Red Cell Distribution Width 15.3 % (11.5-14.5); White Blood Count 11.2 K/mm3 (4.5-10.0)
[2023-03-31 17:52] LABS: Alanine Aminotransferase 36 U/L (6-35); Albumin Level 2.6 g/dL (3.5-5.1); Alkaline Phosphatase 63 U/L (38-126); Anion Gap 4 mmol/L (8-16); Aspartate Amino Transferase 40 U/L (14-36); Bilirubin,Total 0.4 mg/dL (0.2-1.3); Blood Urea Nitrogen 14 mg/dL (7-17); Calcium 8.8 mg/dL (8.4-10.2); Carbon Dioxide 22 mmol/L (22-30); Chloride 97 mmol/L (98-107); Estimated Glomerular Filt Rate > 60; Glucose 83 mg/dL (65-110); Magnesium 2.1 mg/dL (1.6-2.3); Potassium 4.8 mmol/L (3.4-5.0); Sodium 123 mmol/L (137-145)
[2023-03-31 17:59] LABS: Appearance Urine Clear (Clear); Bacteria Urine Rare /hpf; Bilirubin Urine Negative (Negative); Blood Urine Negative (Negative); Color Urine Yellow (Yellow); Glucose Urine UA Negative (Negative); Ketones Urine Negative (Negative); Leukocyte Esterase Ur 1+ LEU/UL (Negative); Nitrate Urine Negative (Negative); Non Pathogenic Casts 0-2; Protein Urine Negative (Negative); Specific Grav Ur 1.019 (1.001-1.035); Squamous Epithelial Cell Urine Moderate /hpf (Few)
[2023-03-31 18:00] LABS: Add Urine Microscopic? YES
[2023-03-31 18:04] LABS: Urea Random Urine 916 MG/DL
[2023-03-31 18:06] LABS: Valproic Acid 52.3 ug/mL (50-120)
[2023-03-31 18:23] LABS: Cortisol Random 6.82 ug/dL
[2023-03-31 18:43] VITALS: PULSE 78
[2023-03-31] MEDS: METOPROLOL SUCCINATE EXT REL 50 MG TABCR PO (18:43)
[2023-03-31] MEDS: SODIUM CHLORIDE 1 GM TABLET PO (18:43)
[2023-03-31 18:44] VITALS: BP 102/48; PULSE 77; RESP 16; TEMP 36.8; O2SAT 93
[2023-03-31] MEDS: MEGESTROL ACETATE (*CHEMO) 40 MG TABLET PO ×2 (18:44→20:24)
[2023-03-31] MEDS: DIVALPROEX SODIUM ER 500 MG TAB.24H 1000 MG PO (20:24)
[2023-03-31 22:00] VITALS: BP 122/49; PULSE 68; RESP 16; TEMP 36.8; O2SAT 99
[2023-04-01] MEDS: LEVOTHYROXINE SODIUM 75 MCG TABLET PO (06:29)
--- NOTE | 2023-04-01 07:12 | PM.IMPN ---
Progress Note: A&P Assessment and Plan (1) Hyponatremia: Code(s): E87.1 - Hypo-osmolality and hyponatremia Status: Acute Assessment and Plan: Steady decline over the last couple of weeks that has required fluid restriction addition of sodium tabs which have escalated up to 1 g 3 times daily. Nephrology has consulted to help manage. She has had improvement from yesterday to this morning with a rise in her sodium from 122 yesterday to 126 this morning. Hyponatremia may be exacerbating patient's weakness and confusion. 2/3: Nephrology is consulting, labs pending, cosyntropin stem test pending, fluid restriction tightened to 1200 mL (2) Bipolar disorder: Code(s): F31.9 - Bipolar disorder, unspecified Status: Acute Assessment and Plan: Some of patient's confusion weakness may be related to overmedication. Because concurretn hyponatremia we will stop Lexapro at this time. Additionally we will change trazodone from scheduled to as needed. Valproic acid level will be checked as she a dose escalation just over a month ago and last level borderline elevated. We will also recheck TSH with reflex as her levothyroxine dose been slightly decreased 100 mcg daily to 75 mcg daily. (3) Altered mental status: Code(s): R41.82 - Altered mental status, unspecified Status: Acute Assessment and Plan: Likely multifactorial including history of bipolar disease, recent loss of her spouse, hyponatremia, possible recurrent UTI--urine culture pending (4) Weakness: Code(s): R53.1 - Weakness Status: Acute Assessment and Plan: Will consult PT and OT to continue therapy and determine if further SNF/swing rehab will be needed after this acute care hospitalization. (5) Adult failure to thrive: Code(s): R62.7 - Adult failure to thrive Status: Acute Assessment and Plan: Will continue Megace and dietary supplements consult dietitian work with PT OT attempt to correct hyponatremia as well optimize psychiatric medications. Multifactorial for sure Plan Patient expressed wishes to be a DNR today. Code status changed. Time Spent With Patient Time with patient: 25 - 35 minutes Subjective Date/time seen: 04/01/23 07:12 Interval history: Patient awake alert unchanged from prior exams. She has no new acute complaints. Therapy is working with patient she is walking well with a walker today, better than previously. Nephrology has ordered additional labs therapies tightened fluid restriction and is managing hyponatremia at this point. Cosyntropin stim test has been initiated. Review of Systems Review of Systems: All systems reviewed & are unremarkable except as noted in HPI and below Exam Narrative: GENERAL: thin, mal nourished appearin g, weak appearing HEAD:? Normocephal ic, atraumatic. EN T:? Mucous membran es moist. CHEST:? Clear to auscultat ion.? No respirato ry distress. HEART :? Regular rate an d rhythm. ? Normal peripheral pulses . ABDOMEN: Soft, n ontender, nondiste nded. EXTREMITIES: ? Normal range of motion.? No periph eral edema. SKIN:? Warm dry normal c olor NEURO:? Alert and oriented x3. moves all extremit ies well PSYCH:? N ormal mood and? fl at affect ? Objective Data Vital Signs Vital Signs: Vital Signs - 24 hr 03/31/23 18:43 03/31/23 18:44 03/31/23 20:00 Temperature 36.8 C Pulse Rate 78 77 Respiratory Rate 16 Blood Pressure 102/48 L Pulse Oximetry 93 Oxygen Delivery Room Air 03/31/23 22:00 Temperature 36.8 C Pulse Rate 68 Respiratory Rate 16 Blood Pressure 122/49 L Pulse Oximetry 99 Oxygen Delivery Intake/Output Intake/Output: Intake & Output 03/29/23 03/30/23 03/31/23 04/01/23 23:59 23:59 23:59 23:59 Intake Total 50 Output Total 100 Balance -50 Meds/Results Medications: Active Medications Generic Name Dose Route Start Last Admin Trade Nam
[2023-04-01 07:23] LABS: Basophils Absolute Auto 0.1 K/mm3 (0.0-0.1); Basophils Percent Auto 0.9 % (0.2-1.2); Eosinophils Absolute Auto 0.1 K/mm3 (0-0.3); Eosinophils Percent Auto 0.7 % (0-4.4); Hematocrit 31.9 % (37.0-47.0); Hemoglobin 10.9 g/dL (12.0-15.0); Immature Granulocyte Absolute 0.15 K/mm3 (0.00-0.031); Immature Granulocyte Percent A 1.2 % (0-0.5); Lymphocytes Absolute Auto 3.13 K/mm3 (0.9-3.2); Mean Corpuscular HGB Conc 34.2 g/dl (32-36); Mean Corpuscular Hemoglobin 31.2 pg (26-34); Mean Corpuscular Volume 91.4 fl (80-100); Mean Platelet Volume 9.1 fl (7.4-10.4); Monocytes Absolute Auto 1.5 K/mm3 (0.1-0.6); Monocytes Percent Auto 12.6 % (2.6-8.5); Neutrophils Percent Auto 58.6 % (45.5-73.1); Platelet Count Result 463 k/mm3 (150-375); Red Blood Count 3.49 M/mm3 (4.2-5.4); Red Cell Distribution Width 15.4 % (11.5-14.5)
[2023-04-01 07:24] LABS: Alanine Aminotransferase 38 U/L (6-35); Albumin Level 2.7 g/dL (3.5-5.1); Alkaline Phosphatase 68 U/L (38-126); Anion Gap 5 mmol/L (8-16); Aspartate Amino Transferase 33 U/L (14-36); Bilirubin,Total 0.4 mg/dL (0.2-1.3); Blood Urea Nitrogen 8 mg/dL (7-17); Calcium 8.9 mg/dL (8.4-10.2); Carbon Dioxide 25 mmol/L (22-30); Chloride 94 mmol/L (98-107); Estimated Glomerular Filt Rate > 60; Glucose 82 mg/dL (65-110); Magnesium 2.1 mg/dL (1.6-2.3); Potassium 4.5 mmol/L (3.4-5.0); Sodium 124 mmol/L (137-145)
[2023-04-01] MEDS: NICOTINE (*PBKC) 14 MG PATCH 1 PATCH TRANSDERM (09:35)
[2023-04-01] MEDS: ENOXAPARIN 40 MG/0.4 ML SYRINGE SUB-Q (09:36)
[2023-04-01] MEDS: PSYLLIUM POWDER PACKET 1 PACKET BY MOUTH (09:36)
[2023-04-01] MEDS: ATORVASTATIN 40 MG TABLET PO (09:37)
[2023-04-01] MEDS: POTASSIUM CHLORIDE 20 MEQ ER TABLET 40 MEQ PO (09:37)
[2023-04-01] MEDS: DIVALPROEX SODIUM ER 500 MG TAB.24H 1000 MG PO ×2 (09:38→20:06)
[2023-04-01] MEDS: DIVALPROEX SODIUM ER 500 MG TAB.24H PO (09:38)
[2023-04-01 09:39] VITALS: PULSE 64
[2023-04-01] MEDS: buPROPion HCL XL (24 HR) 150 MG TABCR PO (09:39)
[2023-04-01] MEDS: MEGESTROL ACETATE (*CHEMO) 40 MG TABLET PO ×4 (09:39→20:07)
[2023-04-01] MEDS: METOPROLOL SUCCINATE EXT REL 50 MG TABCR PO ×2 (09:39→17:08)
[2023-04-01] MEDS: SODIUM CHLORIDE 1 GM TABLET PO ×2 (11:06→17:08)
[2023-04-01] MEDS: FUROSEMIDE 20 MG TABLET PO ×2 (11:06→17:08)
[2023-04-01] MEDS: COSYNTROPIN 0.25 MG/ML VIAL IV PUSH (11:15)
[2023-04-01] MEDS: MONTELUKAST SODIUM 5 MG TABLET PO (11:20)
--- NOTE | 2023-04-01 11:32 | PM.CNNEP ---
Assessment and Plan Assessment and plan (1) Hyponatremia: Code(s): E87.1 - Hypo-osmolality and hyponatremia Status: Acute Assessment and Plan: the patient has hyponatremia. She had intermittent low sodiums in the past but this time the sodium is really low. MRI of the brain is okay. Chest x-ray shows no lesion TSH is normal. A couple of concerning issues: She is on Lexapro and Wellbutrin. These both can make the sodium drop. The Lexapro was held and the Wellbutrin XL was continued because of the severity of her depression. Hopefully we can work around the Wellbutrin by treating the hyponatremia directly. She has had a 20kg weight loss in the last urine had, 10kg of which was in the last 6 months. This is concerning for something like cancer which would explain the suddenly low sodium plus her weight loss. I am not sure up-to-date she really is with cancer screening. Will try to get some records from her primary care. She has a low cortisol level. Adrenal insufficiency would explain the low sodium and weight loss. Will check a Cortrosyn stim test she needs a serum osmolality. she is on salt tablets. This does not usually work without loop diuretics so I will add Lasix twice a day. She says the salt tablets are discusting. So I will decrease these to twice a day and give her Lasix 20mg twice a day. I will also Put her on a fluid restriction of 1200cc. She will need this long-term if she stays on her antidepressants. (2) Hypertension: Code(s): I10 - Essential (primary) hypertension Status: Acute Assessment and Plan: Blood pressure looks pretty well controlled (3) Hypothyroidism: Code(s): E03.9 - Hypothyroidism, unspecified Status: Acute Assessment and Plan: she is on thyroid supplements (4) Hyperlipidemia: Code(s): E78.5 - Hyperlipidemia, unspecified Status: Acute Assessment and Plan: the patient is on atorvastatin (5) Ascending aortic aneurysm: Code(s): I71.2 - Thoracic aortic aneurysm, without rupture Status: Acute History of Present Illness Reason for Consult Consult date: 04/01/23 Chief Complaint Chief complaint: Hyponatremia History of Present Illness Narrative: Maritza is a very pleasant 67-year-old lady who has multiple medical problems including bipolar disorder, tobacco use, hypothyroidism, hypertension, depression, ascending aortic aneurysm, peripheral vascular disease, and malnutrition. The patient transferred yesterday from [facility] because of hyponatremia. Her problems started in mid February when she had developed weakness. It had been going on for about a month. She was seen by primary care as an outpatient but evaluation was unknown. She went to the emergency room in [place] and was admitted. She was felt to be dehydrated so was given some IV fluids. She also was given supportive care, Megace, potassium, and her usual outpatient medications. Because of the hyponatremia the Lexapro was held. She was apparently better and then went to a swing bed but they were not able to do labs and now and the sodium level was low so she was transferred to [facility] for further care. Here the patient's sodium is 124. She says that the sodium is never been low in the past she knows of Looking back in the records it looks like her sodium was pretty much normal before this except for once in. October of 2020 and then in May of 2021 when it was barely low. The patient denies any MEDICAL PRACTITIONERS issues. She has no lung problems. She has had no cancer. She says he is up-to-date with her cancer screening. She does not take any [id number]-[id number] medications. She is not on diuretics or narcotics but is on 2 antidepressants. She does not take a PPI. She does take her thyroid supplement. Review of Systems Constitutional: Constitutional: Reports no additional constitutional complaints E
[2023-04-01 14:00] VITALS: BP 115/50; PULSE 77; RESP 16; TEMP 37; O2SAT 97
[2023-04-01 17:08] VITALS: PULSE 77
[2023-04-01 19:27] LABS: Creatinine Urine 82.8 mg/dL
[2023-04-01 19:28] LABS: Sodium Urine Random 77 meq/L
[2023-04-01 20:52] LABS: Total Protein Urine Random < 5 mg/dL; Ur Ttl Prot Creatinine Ratio < 0.06 mg/mg (0-0.20)
[2023-04-01 22:00] VITALS: BP 112/51; PULSE 69; RESP 16; TEMP 37; O2SAT 98
[2023-04-02] VITALS (7 sets, daily range): BP systolic 113–129; BP diastolic 49–64; PULSE 68–76; RESP 14–18; TEMP 36.6–37.1; O2SAT 97–100
[2023-04-02] MEDS: LEVOTHYROXINE SODIUM 75 MCG TABLET PO (05:51)
[2023-04-02 07:00] LABS: Basophils Absolute Auto 0.1 K/mm3 (0.0-0.1); Basophils Percent Auto 0.8 % (0.2-1.2); Eosinophils Percent Auto 0.2 % (0-4.4); Hematocrit 32.4 % (37.0-47.0); Hemoglobin 10.9 g/dL (12.0-15.0); Immature Granulocyte Absolute 0.14 K/mm3 (0.00-0.031); Immature Granulocyte Percent A 1.1 % (0-0.5); Lymphocytes Absolute Auto 3.06 K/mm3 (0.9-3.2); Lymphocytes Percent Auto 23.8 % (18.3-44.2); Mean Corpuscular HGB Conc 33.6 g/dl (32-36); Mean Corpuscular Hemoglobin 30.8 pg (26-34); Mean Corpuscular Volume 91.5 fl (80-100); Mean Platelet Volume 9.2 fl (7.4-10.4); Monocytes Absolute Auto 1.5 K/mm3 (0.1-0.6); Neutrophils Percent Auto 62.1 % (45.5-73.1); Platelet Count Result 485 k/mm3 (150-375); Red Blood Count 3.54 M/mm3 (4.2-5.4); White Blood Count 12.9 K/mm3 (4.5-10.0)
[2023-04-02 07:22] LABS: Alanine Aminotransferase 29 U/L (6-35); Alkaline Phosphatase 71 U/L (38-126); Anion Gap 6 mmol/L (8-16); Aspartate Amino Transferase 25 U/L (14-36); Bilirubin,Total 0.5 mg/dL (0.2-1.3); Blood Urea Nitrogen 9 mg/dL (7-17); Calcium 9.4 mg/dL (8.4-10.2); Carbon Dioxide 25 mmol/L (22-30); Chloride 92 mmol/L (98-107); Estimated Glomerular Filt Rate > 60; Glucose 85 mg/dL (65-110); Magnesium 2.2 mg/dL (1.6-2.3); Potassium 4.1 mmol/L (3.4-5.0); Sodium 123 mmol/L (137-145)
--- NOTE | 2023-04-02 07:50 | PM.IMPN ---
Progress Note: A&P Assessment and Plan (1) Hyponatremia: Code(s): E87.1 - Hypo-osmolality and hyponatremia Status: Acute Assessment and Plan: Steady decline over the last couple of weeks that has required fluid restriction addition of sodium tabs which have escalated up to 1 g 3 times daily. Nephrology has consulted to help manage. She has had improvement from yesterday to this morning with a rise in her sodium from 122 yesterday to 126 this morning. Hyponatremia may be exacerbating patient's weakness and confusion. 2/: Nephrology is consulting, labs pending, cosyntropin stem test pending, fluid restriction tightened to 1200 mL 04/02: Sodium 123 again (2) Recurrent UTI: Code(s): N39.0 - Urinary tract infection, site not specified Status: Acute Assessment and Plan: 04/02: Urine culture positive for E coli, start Rocephin 2 g daily pending sensitivity (3) Bipolar disorder: Code(s): F31.9 - Bipolar disorder, unspecified Status: Acute Assessment and Plan: Some of patient's confusion weakness may be related to overmedication. Because concurretn hyponatremia we will stop Lexapro at this time. Additionally we will change trazodone from scheduled to as needed. Valproic acid level will be checked as she a dose escalation just over a month ago and last level borderline elevated. We will also recheck TSH with reflex as her levothyroxine dose been slightly decreased 100 mcg daily to 75 mcg daily. (4) Altered mental status: Code(s): R41.82 - Altered mental status, unspecified Status: Acute Assessment and Plan: Likely multifactorial including history of bipolar disease, recent loss of her spouse, hyponatremia, possible recurrent UTI--urine culture pending (5) Weakness: Code(s): R53.1 - Weakness Status: Acute Assessment and Plan: Will consult PT and OT to continue therapy and determine if further SNF/swing rehab will be needed after this acute care hospitalization. (6) Adult failure to thrive: Code(s): R62.7 - Adult failure to thrive Status: Acute Assessment and Plan: Will continue Megace and dietary supplements consult dietitian work with PT OT attempt to correct hyponatremia as well optimize psychiatric medications. Multifactorial for sure Time Spent With Patient Time with patient: 25 - 35 minutes Subjective Date/time seen: 04/02/23 07:50 Interval history: Patient reports feeling well today, still having weakness and trouble independently pivoting to bedside commode. Sodium 123. WBC 12.9 today. Urine culture growing E-coli, same as prior infections. Sensitivity pending. Start Rocephin 2 g daily. Nephrology continuing treatment/assessment for hyponatremia. Review of Systems Review of Systems: All systems reviewed & are unremarkable except as noted in HPI and below Exam Narrative: GENERAL: thin, mal nourished appearin g, weak appearing HEAD:? Normocephal ic, atraumatic. EN T:? Mucous membran es moist. CHEST:? Clear to auscultat ion.? No respirato ry distress. HEART :? Regular rate an d rhythm. ? Normal peripheral pulses . ABDOMEN: Soft, n ontender, nondiste nded. EXTREMITIES: ? Normal range of motion.? No periph eral edema. SKIN:? Warm dry normal c olor NEURO:? Alert and oriented x3. moves all extremit ies well PSYCH:? N ormal mood and? fl at affect ? Objective Data Vital Signs Vital Signs: Vital Signs - 24 hr 04/01/23 09:39 04/01/23 09:20 04/01/23 14:00 Temperature 37.0 C Pulse Rate 64 77 Respiratory Rate 16 Blood Pressure 115/50 L Pulse Oximetry 97 Oxygen Delivery Room Air 04/01/23 08:00 04/01/23 17:08 04/01/23 20:00 Temperature Pulse Rate 77 Respiratory Rate Blood Pressure Pulse Oximetry Oxygen Delivery Room Air Room Air 04/01/23 22:00 04/02/23 06:00 Temperature 37.0 C 36.9 C Pulse Rate 69 76 Respiratory Ra
[2023-04-02] MEDS: cefTRIAXone 2 GM/NS 100 ML 2 GM/100 ML BAG IVPB (08:57)
[2023-04-02] MEDS: MEGESTROL ACETATE (*CHEMO) 40 MG TABLET PO ×4 (08:57→20:07)
[2023-04-02] MEDS: MONTELUKAST SODIUM 5 MG TABLET PO (08:57)
[2023-04-02] MEDS: METOPROLOL SUCCINATE EXT REL 50 MG TABCR PO ×2 (08:58→17:44)
[2023-04-02] MEDS: FUROSEMIDE 20 MG TABLET PO ×2 (08:58→17:44)
[2023-04-02] MEDS: SODIUM CHLORIDE 1 GM TABLET PO ×2 (08:58→17:44)
[2023-04-02] MEDS: DIVALPROEX SODIUM ER 500 MG TAB.24H PO (08:58)
[2023-04-02] MEDS: buPROPion HCL XL (24 HR) 150 MG TABCR PO (08:59)
[2023-04-02] MEDS: POTASSIUM CHLORIDE 20 MEQ ER TABLET 40 MEQ PO (08:59)
[2023-04-02] MEDS: ATORVASTATIN 40 MG TABLET PO (08:59)
[2023-04-02] MEDS: ENOXAPARIN 40 MG/0.4 ML SYRINGE SUB-Q (09:00)
[2023-04-02] MEDS: NICOTINE (*PBKC) 14 MG PATCH 1 PATCH TRANSDERM (09:03)
[2023-04-02] MEDS: PSYLLIUM POWDER PACKET 1 PACKET BY MOUTH (09:03)
--- NOTE | 2023-04-02 09:58 | PM.PNNEP ---
Progress Note: A&P Assessment and Plan (1) Hyponatremia: Code(s): E87.1 - Hypo-osmolality and hyponatremia Status: Acute Assessment and Plan: the patient has hyponatremia. She had intermittent low sodiums in the past but this time the sodium is really low. MRI of the brain is okay. Chest x-ray shows no lesion TSH is normal. cortisol level was low but Cortrosyn stim test is normal Urine sodium is not low serum and urine osmolalities are pending part of the patient's hyponatremia is most likely due to medications including her Lexapro and Wellbutrin. The Lexapro was stopped. Her son says that she is looking a lot better mentally since being off the Lexapro. The sodium has not changed any so I think the Lexapro did have those side effects. Because of the severity of her depression, will continue the Wellbutrin for now but consider holding this in the future if needed. She has had a 20kg weight loss in the last two years. Her son agrees that she has had a marked weight loss. I asked her again about her cancer screening. It turns out that she has not had a colonoscopy. The patient does not have any other symptoms in particular of cancer but I wonder if this is what is going on. She probably needs and evaluation for underlying cancer. To treat this the patient is on a 1200cc fluid restriction, salt tablets, and Lasix. The sodium has not budged so far. Will give a small amount of hypertonic saline to get the sodium into the high 120s. Will check a sodium later today (2) Hypertension: Code(s): I10 - Essential (primary) hypertension Status: Acute Assessment and Plan: Blood pressure looks pretty well controlled (3) Hypothyroidism: Code(s): E03.9 - Hypothyroidism, unspecified Status: Acute Assessment and Plan: she is on thyroid supplements (4) Hyperlipidemia: Code(s): E78.5 - Hyperlipidemia, unspecified Status: Acute Assessment and Plan: the patient is on atorvastatin (5) Ascending aortic aneurysm: Code(s): I71.2 - Thoracic aortic aneurysm, without rupture Status: Acute Subjective Date/time seen: 04/02/23 09:58 Interval history: patient feels okay today. She is tolerating her fluid restriction. Her son is in the room. Review of Systems Cardiovascular: Cardiovascular: Reports no additional cardiovascular complaints Respiratory: Respiratory: Reports no additional respiratory complaints Gastrointestinal: Gastrointestinal: Reports no additional gastrointestinal complaints Genitourinary: Genitourinary: Reports no additional female genitourinary complaints Exam Narrative: WDWN in NAD skin no rash head ncat lungs clear cor reg no rub abd BS+ nontender and soft ext no edema. Objective Data Vital Signs Vital Signs: Vital Signs - 24 hr 04/01/23 14:00 04/01/23 17:08 04/01/23 20:00 Temperature 98.6 F Pulse Rate 77 77 Respiratory Rate 16 Blood Pressure 115/50 L Pulse Oximetry 97 Oxygen Delivery Room Air 04/01/23 22:00 04/02/23 06:00 04/02/23 08:55 Temperature 98.6 F 98.5 F Pulse Rate 69 76 72 Respiratory Rate 16 14 18 Blood Pressure 112/51 L 114/49 L Pulse Oximetry 98 100 97 Oxygen Delivery 04/02/23 08:58 Temperature Pulse Rate 72 Respiratory Rate Blood Pressure Pulse Oximetry Oxygen Delivery Intake/Output Intake/Output: Intake & Output 03/30/23 03/31/23 04/01/23 04/02/23 23:59 23:59 23:59 23:59 Intake Total 50 720 240 Output Total 100 500 200 Balance -50 220 40 Meds/Results Medications: Active Medications Generic Name Dose Route Start Last Admin Trade Name Ronnellq PRN Reason Stop Dose Admin Acetaminophen 650 mg 03/31/23 16:34 Acetaminophen 325 Mg Tablet PO Q8H PRN Mild Pain (1-3) Or Fever Atorvastatin Calcium 40 mg 04/01/23 09:00 04/02/23 08:59 Atorvastatin 40 Mg Tablet PO 40 mg DAILY MINH
[2023-04-02] MEDS: SODIUM CHLORIDE 3% 160 ML 40 ML IV CONT (10:39)
[2023-04-02 18:10] LABS: Sodium 128 mmol/L (137-145)
[2023-04-02] MEDS: DIVALPROEX SODIUM ER 500 MG TAB.24H 1000 MG PO (20:07)
--- NOTE | 2023-04-03 | ECHO_ITS ---
Patient Info Name: Maritza Noriega Age: 67 years : 1955 Gender: Female Ht: 63 in Wt: 123 lbs BSA: 1.58 m2 HR: 75 bpm BP: 126 / 65 mmHg Technical Quality: Fair Exam Date: 04/03/2023 10:57 AM Exam Location: Echo Lab Patient Status: Inpatient Admit Date: 04/01/2023 Staff Ordering Physician: Az Mejia APRN Attending Provider: Bipin Antonio MD Referring Physician: Roberto GARCIA; Exam Type: CA echo doppler w bubble study Study Info Indications - CVA Complete two-dimensional, color flow and Doppler transthoracic echocardiogram is performed with agitated saline. Contrast/Agitated Saline Contrast/Ag. Saline: Agitated Saline Amount: 20.00 ml Existing IV Access: Yes IV Access Condition: patent with no signs of infiltration Summary 1. Left ventricular chamber dimension is normal. 2. Left ventricular systolic function is normal, estimated at 65-70%. 3. There is mild concentric increased left ventricular wall thickness. 4. The left ventricular diastolic function is grade I diastolic dysfunction. 5. E/e' 12 is mildly elevated. 6. The aortic valve is not well visualized. Cannot determine number of aortic valve leaflets. 7. There is moderate aortic valve sclerosis. 8. There is mild aortic valve stenosis with a peak velocity of 264 cm/s, mean gradient of 15 mmHg, and aortic valve area of 2.0 cm2. 9. The mitral valve has moderately calcified annulus. 10. There is trace mitral valve regurgitation. Left Ventricle E/e' 12 is mildly elevated. Left ventricular chamber dimension is normal. Left ventricular systolic function is normal, estimated at 65-70%. There is mild concentric increased left ventricular wall thickness. The left ventricular diastolic function is grade I diastolic dysfunction. Right Ventricle Right ventricular chamber dimension is normal. Right ventricular systolic function is normal. Left Atria Left atrial chamber dimension is normal. Right Atria Right atrial chamber dimension is normal. Atrial Septum Agitated saline injection with and without valsalva maneuver opacified right side cardiac chambers without shunt to left side cardiac chambers. Intact interatrial septum visualized by 2D and agitated saline imaging. Aortic Valve The aortic valve is not well visualized. Cannot determine number of aortic valve leaflets. There is moderate aortic valve sclerosis. There is mild aortic valve stenosis with a peak velocity of 264 cm/s, mean gradient of 15 mmHg, and aortic valve area of 2.0 cm2. There is no aortic valve regurgitation. Pulmonic Valve There is no pulmonic regurgitation. Mitral Valve The mitral valve has moderately calcified annulus. There is no mitral valve stenosis. There is trace mitral valve regurgitation. Tricuspid Valve There is no tricuspid valve regurgitation. Pericardium/Pleural There is no pericardial effusion. Inferior Vena Cava Normal inferior vena cava with >50% collapse upon inspiration consistent with normal right atrial pressure, 5 mmHg. Aorta The aortic root size at the sinus of Valsalva is normal. Left Ventricular Outflow Tract Name Value Normal LVOT 2D LVOT Diameter 2.0 cm LVOT Doppler LVOT Peak
--- NOTE | 2023-04-03 03:50 | PM.EVENT ---
Event Note Event Note Event Note: 04/03/2023 at 03:50 Nursing staff mentions the patient had acute change earlier in the day and was no longer able to get out of bed. The CONTINUOUS [employer]URN BUTTER[employer]KER reported the patient was leaning backward when they were trace sitter up on the side of the bed and was leaning to the side. They reported that she seemed more ?off than usual?. I went to evaluate the patient the patient had some difficulty following some of the commands. She states that she does not usually know the month or year. She does know she is in the hospital but got the name of the hospital wrong. She reports the staff that she thinks she had a stroke around 02:00. But then she has told the staff that she also had a stroke during her last hospital stay but her MRI in February did not show any evidence of stroke. At the time my evaluation the patient had facial asymmetry when her face was relaxed but on smiling patient's face seemed to be equal with normal nasal labial folds. Patient did have some left-sided tongue deviation. The patient had some difficulty following commands for extraocular movements but for the most part they seem to be normal. Patient did have some pronator drift and was not able to lift her left arm as well as the right. The patient had difficulty lifting her legs from the bed in general but had 2/5 strength on plantar flexion on the left and 3/5 on the right, she is chronically confused. Her sensation was equal throughout. Patient had difficulty understanding commands for [id number] and [id number]. Given concern for acute neurologic change in tongue deviation as well as reports from nursing staff of the patient listing to the left side when she was set up I have ordered a stat CT of the brain and stat CTA of the brain and carotids. Will continue with neuro checks. 32 minute spent in critical care activities. Due to a high probability of clinically significant, life threatening deterioration, the patient required my highest level of preparedness to intervene emergently and I personally spent this critical care time directly and personally managing the patient. This critical care time included obtaining a history; examining the patient; pulse oximetry; ordering and review of studies; arranging urgent treatment with development of a management plan; evaluation of patient's response to treatment; frequent reassessment; and discussions with other providers. It was exclusive of separately billable procedures and treating other patients and teaching time. Please see Assessment and Plan section and the rest of the note for further information on patient assessment and treatment.
[2023-04-03 06:00] VITALS: BP 126/65; PULSE 64; RESP 16; TEMP 36.7; O2SAT 99
[2023-04-03 06:07] LABS: Basophils Absolute Auto 0.1 K/mm3 (0.0-0.1); Basophils Percent Auto 0.7 % (0.2-1.2); Eosinophils Percent Auto 0.2 % (0-4.4); Hematocrit 32.4 % (37.0-47.0); Hemoglobin 10.9 g/dL (12.0-15.0); Immature Granulocyte Absolute 0.12 K/mm3 (0.00-0.031); Immature Granulocyte Percent A 1.1 % (0-0.5); Lymphocytes Absolute Auto 2.52 K/mm3 (0.9-3.2); Lymphocytes Percent Auto 23.6 % (18.3-44.2); Mean Corpuscular HGB Conc 33.6 g/dl (32-36); Mean Corpuscular Hemoglobin 31.3 pg (26-34); Mean Corpuscular Volume 93.1 fl (80-100); Monocytes Absolute Auto 1.7 K/mm3 (0.1-0.6); Monocytes Percent Auto 15.4 % (2.6-8.5); Neutrophils Absolute Auto 6.3 K/mm3 (1.3-6.7); Platelet Count Result 421 k/mm3 (150-375); Red Blood Count 3.48 M/mm3 (4.2-5.4); Red Cell Distribution Width 15.6 % (11.5-14.5); White Blood Count 10.7 K/mm3 (4.5-10.0)
[2023-04-03] MEDS: LEVOTHYROXINE SODIUM 75 MCG TABLET PO (06:10)
[2023-04-03 06:18] LABS: Alanine Aminotransferase 21 U/L (6-35); Alkaline Phosphatase 70 U/L (38-126); Anion Gap 4 mmol/L (8-16); Aspartate Amino Transferase 19 U/L (14-36); Bilirubin,Total 0.3 mg/dL (0.2-1.3); Blood Urea Nitrogen 11 mg/dL (7-17); Calcium 9.1 mg/dL (8.4-10.2); Carbon Dioxide 29 mmol/L (22-30); Chloride 94 mmol/L (98-107); Estimated Glomerular Filt Rate > 60; Glucose 86 mg/dL (65-110); Magnesium 2.2 mg/dL (1.6-2.3); Potassium 3.9 mmol/L (3.4-5.0); Sodium 127 mmol/L (137-145)
--- NOTE | 2023-04-03 07:05 | PC.NURSE ---
DAY PORTER alerted this RN of patient change in mental status at 0430. DAY PORTER stated patient was unable to support herself while sitting up and also stated that she said she was sitting up when patient was actually lying flat in her bed. Quick bedside stroke evaluation completed and was negative with exception of slight left tongue deviation noted and confirmed with Dr. Isaac who also came to evaluate patient for stroke. CT brain/neck ordered and awaiting results.
[2023-04-03 08:00] VITALS: PULSE 64; RESP 16; O2SAT 99
--- NOTE | 2023-04-03 08:25 | PM.IMPN ---
Progress Note: A&P Assessment and Plan (1) Vertebral artery disease: Code(s): I77.9 - Disorder of arteries and arterioles, unspecified Status: Acute Assessment and Plan: CTA shows proximal occlusion bilateral vertebral arteries with reconstitution. Neurology consult to see tomorrow, aspirin given. May be cause of symptomatology over the past few weeks. (2) Hyponatremia: Code(s): E87.1 - Hypo-osmolality and hyponatremia Status: Acute Assessment and Plan: Steady decline over the last couple of weeks that has required fluid restriction addition of sodium tabs which have escalated up to 1 g 3 times daily. Nephrology has consulted to help manage. She has had improvement from yesterday to this morning with a rise in her sodium from 122 yesterday to 126 this morning. Hyponatremia may be exacerbating patient's weakness and confusion. 2/: Nephrology is consulting, labs pending, cosyntropin stem test pending, fluid restriction tightened to 1200 mL 04/02: Sodium 123 again (3) Recurrent UTI: Code(s): N39.0 - Urinary tract infection, site not specified Status: Acute Assessment and Plan: 04/02: Urine culture positive for E coli, start Rocephin 2 g daily pending sensitivity (4) Bipolar disorder: Code(s): F31.9 - Bipolar disorder, unspecified Status: Acute Assessment and Plan: Some of patient's confusion weakness may be related to overmedication. Because concurretn hyponatremia we will stop Lexapro at this time. Additionally we will change trazodone from scheduled to as needed. Valproic acid level will be checked as she a dose escalation just over a month ago and last level borderline elevated. We will also recheck TSH with reflex as her levothyroxine dose been slightly decreased 100 mcg daily to 75 mcg daily. (5) Altered mental status: Code(s): R41.82 - Altered mental status, unspecified Status: Acute Assessment and Plan: Likely multifactorial including history of bipolar disease, recent loss of her spouse, hyponatremia, possible recurrent UTI--urine culture pending (6) Weakness: Code(s): R53.1 - Weakness Status: Acute Assessment and Plan: Will consult PT and OT to continue therapy and determine if further SNF/swing rehab will be needed after this acute care hospitalization. (7) Adult failure to thrive: Code(s): R62.7 - Adult failure to thrive Status: Acute Assessment and Plan: Will continue Megace and dietary supplements consult dietitian work with PT OT attempt to correct hyponatremia as well optimize psychiatric medications. Multifactorial for sure Time Spent With Patient Time with patient: 25 - 35 minutes Subjective Date/time seen: 04/03/23 08:25 Interval history: 04/02: Patient reports feeling well today, still having weakness and trouble independently pivoting to bedside commode. Sodium 123. WBC 12.9 today. Urine culture growing E-coli, same as prior infections. Sensitivity pending. Start Rocephin 2 g daily. Nephrology continuing treatment/assessment for hyponatremia. 04/03: Overnight patient could not transition herself to the bedside commode was falling backward onto the bed. Hospitalist was called to the bedside believed that patient may be having a stroke. Patient sent for head CT and CTA which were unchanged from prior except noted findings on CTA of bilateral proximal vertebral artery occlusions with reconstitution. Given these findings ordered MRI MRA as well as echo with bubble study. We will consult Neurology tomorrow. MRI still no finding of stroke. Proximal vertebral artery occlusions bilaterally could be the cause of patient's ataxia/altered gait for which she has been treated with physical the last couple of weeks. Review of Systems Review of Systems: All systems reviewed & are unremarkable except as noted in HPI and below Exam Narrative: GENERAL: thin, mal nourished appea
[2023-04-03 08:58] LABS: Cholesterol 111 mg/dL (0-200); HDL Direct 22 mg/dL; Triglycerides 75 mg/dL (<150)
[2023-04-03 09:09] LABS: LDL Cholesterol Direct 83 mg/dL
--- NOTE | 2023-04-03 10:00 | PM.PNNEP ---
Progress Note: A&P Assessment and Plan (1) Hyponatremia: Code(s): E87.1 - Hypo-osmolality and hyponatremia Status: Acute Assessment and Plan: intermittent low sodiums in the past but not this sever on presentation evaluation to date noted: MRI as well as CT and CTA of the brain okay Chest x-ray negative TSH normal cortisol level was low but Cortrosyn stim test is normal urine sodium is not low; urine lytes non-prerenal SPEP/UPEP as well as serum and urine osmolalities are pending medications playing a role - was on lexapro and wellbutrin (but off lexapro now) weight loss noted (~ 20 pounds) -- possible malignancy? s/p 3% salone on 04/02/23 remains on fluid restrictioon, salt tabs, and lasix follow trend of repeat sodiums (2) UTI (urinary tract infection): Code(s): N39.0 - Urinary tract infection, site not specified Status: Acute Assessment and Plan: urine culture with E.coli on antibiotics (3) Hypertension: Code(s): I10 - Essential (primary) hypertension Status: Acute Assessment and Plan: reasonable control follow trend of hemodynamics Will continue to follow. Subjective Date/time seen: 04/03/23 10:00 Interval history: Follow-up for acute on chronic hyponatremia. Chart reviewed -- assuming care from Dr. Alcaraz; sodium doing better s/p 3% saline infusion yesterday; remains on salt tabs, lasix and fluid restriction; no apparent distress noted; no issues/events overnight or earlier this AM. Exam Narrative: General: WD/WN female in NAD Heart: normal S1 and S2; no rub Lungs: clear to auscultation Abdomen: soft, nontender, nondistended, positive bowel sounds Extremities: no cyanosis or clubbing; no edema Skin: warm and dry Objective Data Vital Signs Vital Signs: Vital Signs Temp Pulse Resp BP Pulse Ox O2 Del Method 04/03/23 06:00 98.1 F 64 16 126/65 99 04/02/23 22:00 98.8 F 68 14 129/52 L 97 04/02/23 20:00 74 14 98 Room Air 04/02/23 17:44 74 04/02/23 14:00 97.8 F 72 14 113/64 98 Intake/Output Intake/Output: Intake & Output 02/02/24 02/03/24 02/04/24 02/05/24 23:59 23:59 23:59 23:59 Intake Total 50 720 820 240 Output Total 100 500 800 350 Balance -50 220 20 -110 Meds/Results Medications: Active Medications Generic Name Dose Route Start Last Admin Trade Name Freq PRN Reason Stop Dose Admin Acetaminophen 650 mg 03/31/23 16:34 Acetaminophen 325 Mg Tablet PO Q8H PRN Mild Pain (1-3) Or Fever Aspirin 81 mg 04/04/23 09:00 Aspirin 81 Mg Enteric Tablet PO QAM [facility] Atorvastatin Calcium 80 mg 04/03/23 09:00 Atorvastatin 40 Mg Tablet PO DAILY [facility] Bupropion HCl 150 mg 04/01/23 09:00 04/02/23 08:59 Bupropion Hcl Xl (24 Hr) 150 Mg Tabcr PO 150 mg DAILY [facility] Administration Diclofenac Sodium 75 mg 03/31/23 16:34 Diclofenac Sod 75 Mg Tablet.Ec PO BID PRN Pain Rated 4-6 Divalproex Sodium 1,000 mg 03/31/23 21:00 04/02/23 20:07 Divalproex Sodium Er 500 Mg Tab.24h PO 1,000 mg HS [facility] Administration Divalproex Sodium 500 mg 04/01/23 08:00 04/02/23 08:58 Divalproex Sodium Er 500 Mg Tab.24h PO 500 mg DAILY@0800 [facility] Administration Enoxaparin Sodium 40 mg 04/01/23 09:00 04/02/23 09:00 Enoxaparin 40 Mg/0.4 Ml Syringe SUB-Q 40 mg DAILY [facility] Administration Furosemide 20 mg 04/01/23 10:50 04/02/23 17:44 Furosemide 20 Mg Tablet PO 20 mg BID [facility] Administration Ceftriaxone Sodium 2 gm in 100 mls @ 200 mls/hr 04/02/23 08:00 04/02/23 09:27 Rocephin 2 Gm/Ns 100 Ml IVPB Infused Q24H [facility] Infusion Levothyroxine Sodium 75 mcg 04/01/23 06:30 04/03/23 06:10 Levothyroxine Sodium 75 Mcg Tablet PO 75 mcg DAILY@0630 [facility] Administration Meclizine HCl 12.5 mg 03/31/23 16:34 Meclizine Hcl 12.5 Mg Tablet PO TID PRN dizziness Megestrol Acetate 40
--- NOTE | 2023-04-03 10:00 | P.PNNP_ITS ---
Progress Note: A&P Assessment and Plan (1) Hyponatremia: Code(s): E87.1 - Hypo-osmolality and hyponatremia Status: Acute Assessment and Plan: * intermittent low sodiums in the past but not this sever on presentation * evaluation to date noted: * MRI as well as CT and CTA of the brain okay * Chest x-ray negative * TSH normal * cortisol level was low but Cortrosyn stim test is normal * urine sodium is not low; urine lytes non-prerenal * SPEP/UPEP as well as serum and urine osmolalities are pending * medications playing a role - was on lexapro and wellbutrin (but off lexapro now) * weight loss noted (~ 20 pounds) -- possible malignancy? * s/p 3% salone on 04/02/23 * remains on fluid restrictioon, salt tabs, and lasix * follow trend of repeat sodiums (2) UTI (urinary tract infection): Code(s): N39.0 - Urinary tract infection, site not specified Status: Acute Assessment and Plan: * urine culture with E.coli * on antibiotics (3) Hypertension: Code(s): I10 - Essential (primary) hypertension Status: Acute Assessment and Plan: * reasonable control * follow trend of hemodynamics Will continue to follow. Subjective Date/time seen: 04/03/23 10:00 Interval history: Follow-up for acute on chronic hyponatremia. Chart reviewed -- assuming care from Dr. Alcaraz; sodium doing better s/p 3% saline infusion yesterday; remains on salt tabs, lasix and fluid restriction; no apparent distress noted; no issues/events overnight or earlier this AM. Exam Narrative: General: WD/WN female in NAD Heart: normal S1 and S2; no rub Lungs: clear to auscultation Abdomen: soft, nontender, nondistended, positive bowel sounds Extremities: no cyanosis or clubbing; no edema Skin: warm and dry Objective Data Vital Signs Vital Signs: Vital Signs Temp Pulse Resp BP Pulse Ox O2 Del Method 04/03/23 06:00 98.1 F 64 16 126/65 99 04/02/23 22:00 98.8 F 68 14 129/52 L 97 04/02/23 20:00 74 14 98 Room Air 04/02/23 17:44 74 04/02/23 14:00 97.8 F 72 14 113/64 98 Intake/Output Intake/Output: Intake & Output 03/31/23 04/01/23 04/02/23 04/03/23 23:59 23:59 23:59 23:59 Intake Total 50 720 820 240 Output Total 100 500 800 350 Balance -50 220 20 -110 Meds/Results Medications: Active Medications Generic Name Dose Route Start Last Admin Trade Name Freq PRN Reason Stop Dose Admin Acetaminophen 650 mg 03/31/23 16:34 Acetaminophen 325 Mg Tablet PO Q8H PRN Mild Pain (1-3) Or Fever Aspirin 81 mg 04/04/23 09:00 Aspirin 81 Mg Enteric Tablet PO QAM [facility] Atorvastatin Calcium 80 mg 04/03/23 09:00 Atorvastatin 40 Mg Tablet PO DAILY [facility] Bupropion HCl 150 mg 04/01/23 09:00 04/02/23 08:59 Bupropion Hcl Xl (24 Hr) 150 Mg Tabcr PO 150 mg DAILY [facility] Administration Diclofenac Sodium 75 mg 03/31/23 16:34 Diclofenac Sod 75 Mg Tablet.Ec PO BID PRN Pain Rated 4-6 Divalproex Sodium 1,000 mg 03/31/23 21:00 04/02/23 20:07 Divalproex Sodium Er 500 Mg Tab.
--- NOTE | 2023-04-03 11:25 | PCOTNOTE ---
Attempted to see Patient at this time. Patient is having an ECHO at this time, then going for a MRI. Will check back this afternoon.
[2023-04-03 11:34] VITALS: BMI 19.3
[2023-04-03] MEDS: SODIUM CHLORIDE 1 GM TABLET PO ×2 (11:36→17:24)
[2023-04-03] MEDS: METOPROLOL SUCCINATE EXT REL 50 MG TABCR PO (11:36)
[2023-04-03] MEDS: FUROSEMIDE 20 MG TABLET PO (11:36)
[2023-04-03] MEDS: cefTRIAXone 2 GM/NS 100 ML 2 GM/100 ML BAG IVPB (11:36)
[2023-04-03] MEDS: MEGESTROL ACETATE (*CHEMO) 40 MG TABLET PO ×4 (11:36→20:28)
[2023-04-03] MEDS: buPROPion HCL XL (24 HR) 150 MG TABCR PO (11:36)
[2023-04-03] MEDS: MONTELUKAST SODIUM 5 MG TABLET PO (11:36)
[2023-04-03] MEDS: ATORVASTATIN 40 MG TABLET 80 MG PO (11:36)
[2023-04-03] MEDS: EUCERIN CREAM 120 GM JAR 1 APPLIC TOPICAL (11:40)
[2023-04-03] MEDS: POTASSIUM CHLORIDE 20 MEQ ER TABLET 40 MEQ PO (11:40)
[2023-04-03] MEDS: DIVALPROEX SODIUM ER 500 MG TAB.24H PO (11:40)
[2023-04-03] MEDS: ASPIRIN 81 MG CHEWABLE TABLET 324 MG PO (11:42)
--- NOTE | 2023-04-03 12:17 | PCSTNOTE ---
Please refer to the Bedside Swallow Evaluation in the EMR. Please note, silent aspiration cannot be ruled out at bedside.
--- NOTE | 2023-04-03 12:40 | PCOTNOTE ---
Attempted again to see Patient this P.M. Patient is out of the room, Per RN, having a MRI.
[2023-04-03] MEDS: NICOTINE (*PBKC) 14 MG PATCH 1 PATCH TRANSDERM (12:57)
[2023-04-03] MEDS: ENOXAPARIN 40 MG/0.4 ML SYRINGE SUB-Q (12:57)
[2023-04-03] MEDS: PSYLLIUM POWDER PACKET 1 PACKET BY MOUTH (12:57)
[2023-04-03 13:11] VITALS: BMI 19.3
[2023-04-03 14:00] VITALS: BP 98/52; PULSE 68; RESP 16; TEMP 36.9; O2SAT 99
[2023-04-03 18:41] LABS: Sodium 125 mmol/L (137-145)
[2023-04-03] MEDS: DIVALPROEX SODIUM ER 500 MG TAB.24H 1000 MG PO (20:27)
[2023-04-03 21:59] VITALS: BP 129/62; PULSE 67; RESP 18; TEMP 36.6; O2SAT 99
[2023-04-04 01:03] LABS: Kappa\\Lambda Light Chains 0.92 (0.26-1.65); Lambda Light Chain 18.9 mg/L (5.7-26.3)
[2023-04-04 06:00] VITALS: BP 125/60; PULSE 70; RESP 20; TEMP 36.5; O2SAT 97
[2023-04-04] MEDS: LEVOTHYROXINE SODIUM 75 MCG TABLET PO (06:15)
[2023-04-04] MEDS: CEPHALEXIN 500 MG CAPSULE PO ×3 (06:16→21:04)
[2023-04-04 06:34] LABS: Basophils Absolute Auto 0.1 K/mm3 (0.0-0.1); Basophils Percent Auto 1.1 % (0.2-1.2); Eosinophils Absolute Auto 0.1 K/mm3 (0-0.3); Eosinophils Percent Auto 0.5 % (0-4.4); Hematocrit 30.5 % (37.0-47.0); Hemoglobin 10.2 g/dL (12.0-15.0); Immature Granulocyte Absolute 0.13 K/mm3 (0.00-0.031); Immature Granulocyte Percent A 1.4 % (0-0.5); Lymphocytes Absolute Auto 2.28 K/mm3 (0.9-3.2); Lymphocytes Percent Auto 24.6 % (18.3-44.2); Mean Corpuscular HGB Conc 33.4 g/dl (32-36); Mean Corpuscular Hemoglobin 31.1 pg (26-34); Mean Platelet Volume 9.3 fl (7.4-10.4); Monocytes Absolute Auto 1.4 K/mm3 (0.1-0.6); Monocytes Percent Auto 15.3 % (2.6-8.5); Neutrophils Absolute Auto 5.3 K/mm3 (1.3-6.7); Neutrophils Percent Auto 57.1 % (45.5-73.1); Platelet Count Result 399 k/mm3 (150-375); Red Blood Count 3.28 M/mm3 (4.2-5.4); Red Cell Distribution Width 15.5 % (11.5-14.5); White Blood Count 9.3 K/mm3 (4.5-10.0)
[2023-04-04 06:43] LABS: Alanine Aminotransferase 17 U/L (6-35); Albumin Level 2.7 g/dL (3.5-5.1); Alkaline Phosphatase 61 U/L (38-126); Anion Gap 2 mmol/L (8-16); Aspartate Amino Transferase 17 U/L (14-36); Bilirubin,Total 0.3 mg/dL (0.2-1.3); Blood Urea Nitrogen 10 mg/dL (7-17); Calcium 8.8 mg/dL (8.4-10.2); Carbon Dioxide 26 mmol/L (22-30); Chloride 98 mmol/L (98-107); Estimated CRCL calculation 72 ml/min; Estimated Glomerular Filt Rate > 60; Glucose 85 mg/dL (65-110); Magnesium 2.1 mg/dL (1.6-2.3); Potassium 3.9 mmol/L (3.4-5.0); Sodium 126 mmol/L (137-145)
--- NOTE | 2023-04-04 08:31 | P.CDI_ITS ---
CDI Query Clarification Request BMI 19.3 Nutritional Diagnostic Statement Moderate protein calorie malnutrition related to inadequate oral intake as evidenced by a significant weight loss of -20% x 1 year, reported po intake for several months, NFPE findings for moderate muscle and subcutaneous fat loss. Please refer to the comprehensive nutrition assessment for further information. Please clarify severity of protein calorie malnutrition if known: * Mild * Moderate * Severe * Other/Unspecified <Patricia Villalta RN - Last Filed: 04/04/23 08:36> Clarified Diagnosis Clarified Diagnosis: Moderate protein calorie malnutrition related to inadequate oral intake as evidenced by a significant weight loss of -20% x 1 year, reported po intake for several months, NFPE findings for moderate muscle and subcutaneous fat loss. <Az Mejia APRN - Last Filed: 04/04/23 08:49>
[2023-04-04] MEDS: ATORVASTATIN 40 MG TABLET 80 MG PO (08:41)
[2023-04-04] MEDS: ASPIRIN 81 MG ENTERIC TABLET PO (08:41)
[2023-04-04] MEDS: EUCERIN CREAM 120 GM JAR 1 APPLIC TOPICAL (08:41)
[2023-04-04] MEDS: SODIUM CHLORIDE 500 MG TABLET PO ×2 (08:42→18:00)
[2023-04-04] MEDS: SODIUM CHLORIDE 1 GM TABLET PO ×3 (08:42→21:04)
[2023-04-04] MEDS: MEGESTROL ACETATE (*CHEMO) 40 MG TABLET PO ×4 (08:42→21:03)
[2023-04-04] MEDS: buPROPion HCL XL (24 HR) 150 MG TABCR PO (08:42)
[2023-04-04 08:43] VITALS: PULSE 82
[2023-04-04] MEDS: FUROSEMIDE 20 MG TABLET PO ×2 (08:43→18:01)
[2023-04-04] MEDS: MONTELUKAST SODIUM 5 MG TABLET PO (08:43)
[2023-04-04] MEDS: METOPROLOL SUCCINATE EXT REL 50 MG TABCR PO ×2 (08:43→18:01)
[2023-04-04 08:45] VITALS: BP 122/72; PULSE 82; O2SAT 99
[2023-04-04] MEDS: POTASSIUM CHLORIDE 20 MEQ ER TABLET 40 MEQ PO (08:47)
[2023-04-04] MEDS: ENOXAPARIN 40 MG/0.4 ML SYRINGE SUB-Q (08:48)
[2023-04-04] MEDS: NICOTINE (*PBKC) 14 MG PATCH 1 PATCH TRANSDERM (08:48)
--- NOTE | 2023-04-04 08:49 | PM.IMPN ---
Progress Note: A&P Assessment and Plan (1) Vertebral artery disease: Code(s): I77.9 - Disorder of arteries and arterioles, unspecified Status: Acute Assessment and Plan: 04/03: CTA shows proximal occlusion bilateral vertebral arteries with reconstitution. Neurology consult to see tomorrow, aspirin given. May be cause of symptomatology over the past few weeks. 04/04: Neurology wants to add Plavix for 6 weeks (2) Hyponatremia: Code(s): E87.1 - Hypo-osmolality and hyponatremia Status: Acute Assessment and Plan: Steady decline over the last couple of weeks that has required fluid restriction addition of sodium tabs which have escalated up to 1 g 3 times daily. Nephrology has consulted to help manage. She has had improvement from yesterday to this morning with a rise in her sodium from 122 yesterday to 126 this morning. Hyponatremia may be exacerbating patient's weakness and confusion. 04/01: Nephrology is consulting, labs pending, cosyntropin stem test pending, fluid restriction tightened to 1200 mL 04/02: Sodium 123 again 04/04: Sodium 126 this morning, salt tabs to 1500 mg BID (3) Recurrent UTI: Code(s): N39.0 - Urinary tract infection, site not specified Status: Acute Assessment and Plan: 04/02: Urine culture positive for E coli, start Rocephin 2 g daily pending sensitivity 04/04: Keflex 500 po Q8H for 5 days (4) Bipolar disorder: Code(s): F31.9 - Bipolar disorder, unspecified Status: Acute Assessment and Plan: Some of patient's confusion weakness may be related to overmedication. Because concurretn hyponatremia we will stop Lexapro at this time. Additionally we will change trazodone from scheduled to as needed. Valproic acid level will be checked as she a dose escalation just over a month ago and last level borderline elevated. We will also recheck TSH with reflex as her levothyroxine dose been slightly decreased 100 mcg daily to 75 mcg daily. 04/04: Dystonic posture due to EPS from antipsychotic meds per Neurology. (5) Altered mental status: Code(s): R41.82 - Altered mental status, unspecified Status: Acute Assessment and Plan: Likely multifactorial including history of bipolar disease, recent loss of her spouse, hyponatremia, possible recurrent UTI--urine culture pending (6) Weakness: Code(s): R53.1 - Weakness Status: Acute Assessment and Plan: Will consult PT and OT to continue therapy and determine if further SNF/swing rehab will be needed after this acute care hospitalization. (7) Adult failure to thrive: Code(s): R62.7 - Adult failure to thrive Status: Acute Assessment and Plan: Will continue Megace and dietary supplements consult dietitian work with PT OT attempt to correct hyponatremia as well optimize psychiatric medications. Multifactorial for sure (8) Moderate protein-calorie malnutrition: Code(s): E44.0 - Moderate protein-calorie malnutrition Status: Acute Assessment and Plan: Moderate protein calorie malnutrition related to inadequate oral intake as evidenced by a significant weight loss of -20% x 1 year, reported po intake for several months, NFPE findings for moderate muscle and subcutaneous fat loss. (9) Hypertension: Code(s): I10 - Essential (primary) hypertension Status: Acute Assessment and Plan: Continue home medications (10) Movement disorder: Code(s): G25.9 - Extrapyramidal and movement disorder, unspecified Status: Acute Assessment and Plan: 04/04: Dystonic posture due to EPS from antipsychotic meds per Neurology. (11) Neuropathy: Code(s): G62.9 - Polyneuropathy, unspecified Status: Acute Assessment and Plan: Outpatient nerve conduction test to be arranged Time Spent With Patient Time with patient: 25 - 35 minutes Subjective Date/time seen: 04/04/23 08:49 Interval history: 04/02: Nayan
[2023-04-04] MEDS: DIVALPROEX SODIUM ER 500 MG TAB.24H PO (08:52)
[2023-04-04] MEDS: PSYLLIUM POWDER PACKET 1 PACKET BY MOUTH (08:53)
--- NOTE | 2023-04-04 09:16 | P.PNNP_ITS ---
Progress Note: A&P Assessment and Plan (1) Hyponatremia: Code(s): E87.1 - Hypo-osmolality and hyponatremia Status: Acute Assessment and Plan: * intermittent low sodiums in the past but not as severe as on this presentation * evaluation to date noted: * MRI as well as CT and CTA of the brain okay * Chest x-ray negative * TSH normal * cortisol level was low but Cortrosyn stim test is normal * urine sodium is not low; urine lytes non-prerenal * SPEP/UPEP as well as serum and urine osmolalities are pending * medications playing a role - was on lexapro and wellbutrin (but off lexapro now) * weight loss noted (~ 20 pounds) -- possible malignancy? * s/p 3% saline on 04/02/23 * remains on fluid restriction, salt tabs, and lasix * will increase salt tabs to 1500mg bid today * follow trend of repeat sodiums (2) UTI (urinary tract infection): Code(s): N39.0 - Urinary tract infection, site not specified Status: Acute Assessment and Plan: * urine culture with E.coli * on antibiotics (3) Hypertension: Code(s): I10 - Essential (primary) hypertension Status: Acute Assessment and Plan: * reasonable control * follow trend of hemodynamics Will continue to follow. Subjective Date/time seen: 04/04/23 09:16 Interval history: Follow-up for acute on chronic hyponatremia. Sodium a tad lower by AM labs today in comparison to yesterday; overall, seems to be doing reasonably well; no apparent distress voiced; no issues/events overnight or earlier this morning. Exam Narrative: General: WD/WN female in NAD Heart: normal S1 and S2; no rub Lungs: clear to auscultation Abdomen: soft, nontender, nondistended, positive bowel sounds Extremities: no cyanosis or clubbing; no edema Skin: warm and intact Objective Data Vital Signs Vital Signs: Vital Signs Temp Pulse Resp BP Pulse Ox O2 Del Method 04/04/23 08:43 82 04/04/23 06:00 97.7 F 70 20 125/60 97 04/03/23 20:00 Room Air 04/03/23 21:59 97.8 F 67 18 129/62 99 04/03/23 14:00 98.5 F 68 16 98/52 L 99 Intake/Output Intake/Output: Intake & Output 04/01/23 04/02/23 04/03/23 04/04/23 23:59 23:59 23:59 23:59 Intake Total 720 820 960 480 Output Total 500 800 350 150 Balance 220 20 610 330 Meds/Results Medications: Active Medications Generic Name Dose Route Start Last Admin Trade Name Freq PRN Reason Stop Dose Admin Acetaminophen 650 mg 03/31/23 16:34 Acetaminophen 325 Mg Tablet PO Q8H PRN Mild Pain (1-3) Or Fever Aspirin 81 mg 04/04/23 09:00 04/04/23 08:41 Aspirin 81 Mg Enteric Tablet PO 81 mg QAM [facility] Administration Atorvastatin Calcium 80 mg 04/03/23 09:00 04/04/23 08:41 Atorvastatin 40 Mg Tablet PO 80 mg DAILY [facility] Administration Bupropion HCl 150 mg 04/01/23 09:00 04/04/23 08:42 Bupropion Hcl Xl (24 Hr) 150 Mg Tabcr PO 150 mg DAILY [facility] Administration Cephalexin HCl 500 mg 04/04/23 06:00 04/04/23 06:16 Cephalexin 500 Mg Capsule PO 04/08/23 22:01 500 mg Q8HR [facility] Administration Dicl
--- NOTE | 2023-04-04 09:16 | PM.PNNEP ---
Progress Note: A&P Assessment and Plan (1) Hyponatremia: Code(s): E87.1 - Hypo-osmolality and hyponatremia Status: Acute Assessment and Plan: intermittent low sodiums in the past but not as severe as on this presentation evaluation to date noted: MRI as well as CT and CTA of the brain okay Chest x-ray negative TSH normal cortisol level was low but Cortrosyn stim test is normal urine sodium is not low; urine lytes non-prerenal SPEP/UPEP as well as serum and urine osmolalities are pending medications playing a role - was on lexapro and wellbutrin (but off lexapro now) weight loss noted (~ 20 pounds) -- possible malignancy? s/p 3% saline on 04/02/23 remains on fluid restriction, salt tabs, and lasix will increase salt tabs to 1500mg bid today follow trend of repeat sodiums (2) UTI (urinary tract infection): Code(s): N39.0 - Urinary tract infection, site not specified Status: Acute Assessment and Plan: urine culture with E.coli on antibiotics (3) Hypertension: Code(s): I10 - Essential (primary) hypertension Status: Acute Assessment and Plan: reasonable control follow trend of hemodynamics Will continue to follow. Subjective Date/time seen: 04/04/23 09:16 Interval history: Follow-up for acute on chronic hyponatremia. Sodium a tad lower by AM labs today in comparison to yesterday; overall, seems to be doing reasonably well; no apparent distress voiced; no issues/events overnight or earlier this morning. Exam Narrative: General: WD/WN female in NAD Heart: normal S1 and S2; no rub Lungs: clear to auscultation Abdomen: soft, nontender, nondistended, positive bowel sounds Extremities: no cyanosis or clubbing; no edema Skin: warm and intact Objective Data Vital Signs Vital Signs: Vital Signs Temp Pulse Resp BP Pulse Ox O2 Del Method 04/04/23 08:43 82 04/04/23 06:00 97.7 F 70 20 125/60 97 04/03/23 20:00 Room Air 04/03/23 21:59 97.8 F 67 18 129/62 99 04/03/23 14:00 98.5 F 68 16 98/52 L 99 Intake/Output Intake/Output: Intake & Output 04/01/23 04/02/23 04/03/23 04/04/23 23:59 23:59 23:59 23:59 Intake Total 720 820 960 480 Output Total 500 800 350 150 Balance 220 20 610 330 Meds/Results Medications: Active Medications Generic Name Dose Route Start Last Admin Trade Name Freq PRN Reason Stop Dose Admin Acetaminophen 650 mg 03/31/23 16:34 Acetaminophen 325 Mg Tablet PO Q8H PRN Mild Pain (1-3) Or Fever Aspirin 81 mg 04/04/23 09:00 04/04/23 08:41 Aspirin 81 Mg Enteric Tablet PO 81 mg QAM [facility] Administration Atorvastatin Calcium 80 mg 04/03/23 09:00 04/04/23 08:41 Atorvastatin 40 Mg Tablet PO 80 mg DAILY [facility] Administration Bupropion HCl 150 mg 04/01/23 09:00 04/04/23 08:42 Bupropion Hcl Xl (24 Hr) 150 Mg Tabcr PO 150 mg DAILY [facility] Administration Cephalexin HCl 500 mg 04/04/23 06:00 04/04/23 06:16 Cephalexin 500 Mg Capsule PO 04/08/23 22:01 500 mg Q8HR [facility] Administration Diclofenac Sodium 75 mg 03/31/23 16:34 Diclofenac Sod 75 Mg Tablet.Ec PO BID PRN Pain Rated 4-6 Divalproex Sodium 1,000 mg 03/31/23 21:00 04/03/23 20:27 Divalproex Sodium Er 500 Mg Tab.24h PO 1,000 mg HS [facility] Administration Divalproex Sodium 500 mg 04/01/23 08:00 04/04/23 08:52 Divalproex Sodium Er 500 Mg Tab.24h PO 500 mg DAILY@0800 [facility] Administration Enoxaparin Sodium 40 mg 04/01/23 09:00 04/04/23 08:48 Enoxaparin 40 Mg/0.4 Ml Syringe SUB-Q 40 mg DAILY [facility] Administration Furosemide 20 mg 04/01/23 10:50 04/04/23 08:43 Furosemide 20 Mg Tablet PO 20 mg BID [facility] Administration Levothyroxine Sodium 75 mcg 04/01/23 06:30 04/04/23 06:15 Levothyroxine Sodium 75 Mcg Tablet PO 75 mcg DAILY@0630 [facility] Administration Meclizine HCl 12.5 mg 03/31/23 16:34 Meclizine Hcl
[2023-04-04 09:56] LABS: Albumin 2.3 g/dL (3.8-4.8); Alpha 1 Globulin 0.5 g/dL (0.2-0.3); Beta 1 Globulin 0.5 g/dL (0.4-0.6); Gamma Globulin 0.9 g/dL (0.8-1.7); Protein, Total 5.4 g/dL (6.1-8.1)
--- NOTE | 2023-04-04 11:06 | WPDNEURCNPN ---
Consult date: 04/04/23 HPI: Maritza Noriega is a 67 year old female Has been admitted to the hospital with ongoing history of bipolar disorder and the change in the mental status in addition to the history of underlying 1. Hypothyroidism 2. Chronic smoking 3. Peripheral neuropathy 4. Hyperlipidemia 5. Ascending aortic and history of years smoked 40 his smoking pack years 20 and also history of being on the rehab for the complaints of generalized weakness with gait dysfunction superimposed by urinary tract infection, most recent MRI of the brain and brainstem with and without contrast on April 01, 2023 documented normal aging brain, and CTA documented no aneurysm or significant intracranial arterial stenosis with total occlusion of the proximal vertebral arteries with reconstitution which is a new finding from 719. Also brain MRA otherwise negative. Present she is receiving atorvastatin, in addition to the other medications PMFSH Past Medical History Medical History Ascending aortic aneurysm Bipolar disorder Cataracts, bilateral Depression Hyperlipidemia Hypertension Hypothyroidism Malnutrition On valproic acid therapy Peripheral vascular disease Seasonal allergies Tobacco abuse Surgical History Surgical History History of carpal tunnel surgery Social History Social History Smoking packs per day: 0.5 Smoking cigarettes per day: 10.0 Years smoked: 40 Smoking pack-years: 20.00 Smoking status: Unknown if ever smoked Alcohol intake: never Substance use: never Substance use type: does not use Do You Feel Safe in your Home?: Yes Lack of Transportation: No Lack of Food: Never True Current Housing: I Have Housing Concerned About Future Housing: No Difficulty Paying Gas/Electric Bills: No Difficulty Paying for Meds: No Currently Unemployed: No Education: Decline to Answer Difficulty w/ Childcare or Family Care: No Living arrangements: with family Additional living arrangements comments: . 3 adult children. Spiritual care concerns: No Meds Home Medications and Allergies Home Medications Medication Instructions Recorded Confirmed Type trazodone 50 mg tablet 100 mg PO HS 03/25/19 03/31/23 History meclizine 12.5 mg tablet 12.5 mg PO TID PRN dizziness #30 04/22/22 03/31/23 Rx tabs atorvastatin 40 mg tablet See Rx Instructions .Route 03/06/23 03/31/23 Rx .COMPLEX #90 tabs psyllium husk 0.4 gram capsule 0.4 g PO DAILY #30 caps 03/15/23 03/31/23 Rx (Metamucil) diclofenac sodium 75 mg 75 mg PO BID PRN Pain (Scale Score 03/17/23 03/31/23 History tablet,delayed release 4-6) divalproex 500 mg tablet,extended 1,000 mg PO HS 03/17/23 03/31/23 History release 24 hr levothyroxine 75 mcg tablet 75 mcg PO DAILY 03/17/23 03/31/23 History metoprolol succinate 50 mg 50 mg PO BID 03/17/23 03/31/23 History tablet,extended release 24 hr montelukast 5 mg chewable tablet 5 mg PO DAILY 03/17/23 03/31/23 History enoxaparin 40 mg/0.4 mL 40 mg (0.4 mL) subcut DAILY #4 mL 03/24/23 03/31/23 Rx subcutaneous syringe (Lovenox) megestrol 40 mg tablet 40 mg PO QID #30 tabs 03/24/23 03/31/23 Rx nicotine 14 mg/24 hr daily 1 patch transdermal DAILY #14 ea 03/24/23 03/31/23 Rx transdermal patch potassium chloride 20 mEq 40 meq PO DAILY@0800 #30 tabs 03/24/23 03/31/23 Rx tablet,extended release (K-Tab) acetaminophen 325 mg tablet 650 mg PO Q8H PRN Mild Pain (1-3) 03/31/23 03/31/23 Rx Or Fever #0 tabs bupropion HCl 150 mg 24 hr tablet, 150 mg PO DAILY #30 tabs 03/31/23 03/31/23 Rx extended release divalproex 500 mg tablet,extended 500 mg PO DAILY 03/31/23 03/31/23 History release 24 hr sodium chloride 1,000 mg soluble 1,000 mg PO TID #0 tabs 03/31/23 03/31/23 Rx tablet Allergies Allergy/AdvReac Type Se
--- NOTE | 2023-04-04 11:20 | WPDNEURCNPN ---
Assessment and Plan Assessment and plan (1) Vertebral artery disease: Code(s): I77.9 - Disorder of arteries and arterioles, unspecified Status: Acute (2) Hypertension: Code(s): I10 - Essential (primary) hypertension Status: Acute (3) Bipolar disorder: Code(s): F31.9 - Bipolar disorder, unspecified Status: Acute (4) Movement disorder: Code(s): G25.9 - Extrapyramidal and movement disorder, unspecified Status: Acute (5) Neuropathy: Code(s): G62.9 - Polyneuropathy, unspecified Status: Acute Plan 1. Cervical spondylosis 2. 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 3. Negative MR a otherwise 4. Peripheral neuropathy with gait dysfunction complicated by the dystonic posturing secondary to antipsychotic medication plan continue the aspirin 81mg daily and Plavix 75mg daily for the 6 weeks involve her in the physical therapy and also schedule the nerve conduction studies as an outpatient. Consult date: 04/04/23 HPI: Maritza Noriega is a 67 year old femaleHas been admitted to the hospital with ongoing history of bipolar disorder and change in the mental status in addition to the history of underlying 1. Hypothyroidism 2. Chronic smoking 3. Peripheral neuropathy 4. Hyperlipidemia 5. Ascending aortic aneurysm and history of years smoking 40 patient has been in the rehab for the complaints of generalized weakness with gait dysfunction superimposed by the urinary tract infection. Most recent MRI of the brain and brainstem with and without contrast in March of 2023 documented normal aging brain and CTA documented no aneurysm or significant intracranial disease but total occlusion of the proximal vertebral arteries with reconstitution which is a new finding from the MRI in August of 2019 her MRA of the brain is otherwise negative she is receiving atorvastatin in addition to the other medications. Review of Systems Review of Systems: All systems reviewed & are unremarkable except as noted in HPI and below PMFSH Past Medical History Medical History Ascending aortic aneurysm Bipolar disorder Cataracts, bilateral Depression Hyperlipidemia Hypertension Hypothyroidism Malnutrition On valproic acid therapy Peripheral vascular disease Seasonal allergies Tobacco abuse Surgical History Surgical History History of carpal tunnel surgery Social History Social History Smoking packs per day: 0.5 Smoking cigarettes per day: 10.0 Years smoked: 40 Smoking pack-years: 20.00 Smoking status: Unknown if ever smoked Alcohol intake: never Substance use: never Substance use type: does not use Do You Feel Safe in your Home?: Yes Lack of Transportation: No Lack of Food: Never True Current Housing: I Have Housing Concerned About Future Housing: No Difficulty Paying Gas/Electric Bills: No Difficulty Paying for Meds: No Currently Unemployed: No Education: Decline to Answer Difficulty w/ Childcare or Family Care: No Living arrangements: with family Additional living arrangements comments: . 3 adult children. Spiritual care concerns: No Meds Home Medications and Allergies Home Medications Medication Instructions Recorded Confirmed Type trazodone 50 mg tablet 100 mg PO HS 03/25/19 03/31/23 History meclizine 12.5 mg tablet 12.5 mg PO TID PRN dizziness #30 04/22/03/31/23 Rx tabs atorvastatin 40 mg tablet See Rx Instructions .Route 03/06/23 03/31/23 Rx .COMPLEX #90 tabs psyllium husk 0.4 gram capsule 0.4 g PO DAILY #30 caps 03/15/23 03/31/23 Rx (Metamucil) diclofenac sodium 75 mg 75 mg PO BID PRN Pain (Scale Score 03/17/23 03/31/23 History tablet,delayed release 4-6) divalproex 500 mg tablet,extended 1,000
[2023-04-04] MEDS: CLOPIDOGREL BISULFATE 75 MG TABLET PO (12:20)
[2023-04-04 14:00] VITALS: BP 149/62; PULSE 80; RESP 20; TEMP 36.6; O2SAT 98
[2023-04-04 18:01] VITALS: PULSE 76
[2023-04-04 22:00] VITALS: BP 127/56; PULSE 74; RESP 18; TEMP 37.4; O2SAT 99
[2023-04-05] VITALS (7 sets, daily range): BP systolic 106–126; BP diastolic 45–67; PULSE 68–76; RESP 16–18; TEMP 36.1–37.1; O2SAT 97–100
[2023-04-05] MEDS: ACETAMINOPHEN 325 MG TABLET 650 MG PO (05:18)
[2023-04-05] MEDS: LEVOTHYROXINE SODIUM 75 MCG TABLET PO (05:18)
[2023-04-05] MEDS: CEPHALEXIN 500 MG CAPSULE PO ×3 (05:18→20:41)
[2023-04-05 06:43] LABS: Basophils Absolute Auto 0.1 K/mm3 (0.0-0.1); Eosinophils Percent Auto 0.4 % (0-4.4); Hematocrit 33.8 % (37.0-47.0); Hemoglobin 11.4 g/dL (12.0-15.0); Immature Granulocyte Absolute 0.12 K/mm3 (0.00-0.031); Immature Granulocyte Percent A 1.1 % (0-0.5); Lymphocytes Absolute Auto 2.65 K/mm3 (0.9-3.2); Lymphocytes Percent Auto 25.3 % (18.3-44.2); Mean Corpuscular HGB Conc 33.7 g/dl (32-36); Mean Corpuscular Hemoglobin 31.4 pg (26-34); Mean Corpuscular Volume 93.1 fl (80-100); Mean Platelet Volume 9.1 fl (7.4-10.4); Monocytes Absolute Auto 1.5 K/mm3 (0.1-0.6); Monocytes Percent Auto 14.4 % (2.6-8.5); Neutrophils Absolute Auto 6.1 K/mm3 (1.3-6.7); Neutrophils Percent Auto 57.8 % (45.5-73.1); Platelet Count Result 469 k/mm3 (150-375); Red Blood Count 3.63 M/mm3 (4.2-5.4); Red Cell Distribution Width 15.9 % (11.5-14.5); White Blood Count 10.5 K/mm3 (4.5-10.0)
[2023-04-05 06:54] LABS: Alanine Aminotransferase 17 U/L (6-35); Alkaline Phosphatase 69 U/L (38-126); Anion Gap 8 mmol/L (8-16); Aspartate Amino Transferase 22 U/L (14-36); Bilirubin,Total 0.3 mg/dL (0.2-1.3); Blood Urea Nitrogen 11 mg/dL (7-17); Calcium 9.2 mg/dL (8.4-10.2); Carbon Dioxide 24 mmol/L (22-30); Chloride 98 mmol/L (98-107); Estimated CRCL calculation 72 ml/min; Estimated Glomerular Filt Rate > 60; Glucose 88 mg/dL (65-110); Magnesium 2.1 mg/dL (1.6-2.3); Potassium 4.3 mmol/L (3.4-5.0); Sodium 130 mmol/L (137-145)
[2023-04-05] MEDS: POTASSIUM CHLORIDE 20 MEQ ER TABLET 40 MEQ PO (09:31)
[2023-04-05] MEDS: FUROSEMIDE 20 MG TABLET PO ×2 (09:31→16:33)
[2023-04-05] MEDS: PSYLLIUM POWDER PACKET 1 PACKET BY MOUTH (09:31)
[2023-04-05] MEDS: NICOTINE (*PBKC) 14 MG PATCH 1 PATCH TRANSDERM (09:31)
[2023-04-05] MEDS: ATORVASTATIN 40 MG TABLET 80 MG PO (09:31)
[2023-04-05] MEDS: buPROPion HCL XL (24 HR) 150 MG TABCR PO (09:32)
[2023-04-05] MEDS: MONTELUKAST SODIUM 5 MG TABLET PO (09:32)
[2023-04-05] MEDS: SODIUM CHLORIDE 500 MG TABLET PO ×2 (09:32→16:34)
[2023-04-05] MEDS: METOPROLOL SUCCINATE EXT REL 50 MG TABCR PO ×2 (09:32→16:32)
[2023-04-05] MEDS: CLOPIDOGREL BISULFATE 75 MG TABLET PO (09:32)
[2023-04-05] MEDS: ASPIRIN 81 MG ENTERIC TABLET PO (09:32)
[2023-04-05] MEDS: MEGESTROL ACETATE (*CHEMO) 40 MG TABLET PO ×4 (09:32→20:41)
[2023-04-05] MEDS: ENOXAPARIN 40 MG/0.4 ML SYRINGE SUB-Q (09:32)
[2023-04-05] MEDS: SODIUM CHLORIDE 1 GM TABLET PO ×2 (09:34→16:33)
[2023-04-05] MEDS: EUCERIN CREAM 120 GM JAR 1 APPLIC TOPICAL (12:01)
[2023-04-05] MEDS: DIVALPROEX SODIUM ER 500 MG TAB.24H PO (12:05)
--- NOTE | 2023-04-05 14:05 | PM.PNNEP ---
Progress Note: A&P Assessment and Plan (1) Hyponatremia: Code(s): E87.1 - Hypo-osmolality and hyponatremia Status: Acute Assessment and Plan: improvement noted intermittent low sodiums in the past but not as severe as on this presentation evaluation to date noted: MRI as well as CT and CTA of the brain okay Chest x-ray negative TSH normal cortisol level was low but Cortrosyn stim test is normal urine sodium is not low; urine lytes non-prerenal SPEP without paraproteinemia; UPEP pending medications playing a role - was on lexapro and wellbutrin (but off lexapro now) weight loss noted (~ 20 pounds) -- possible malignancy? s/p 3% saline on 04/02/23 remains on fluid restriction, salt tabs, and lasix follow trend of repeat sodiums (2) UTI (urinary tract infection): Code(s): N39.0 - Urinary tract infection, site not specified Status: Acute Assessment and Plan: urine culture with E.coli on antibiotics (3) Hypertension: Code(s): I10 - Essential (primary) hypertension Status: Acute Assessment and Plan: reasonable control follow trend of hemodynamics Will continue to follow. Subjective Date/time seen: 04/05/23 14:05 Interval history: Follow-up for acute on chronic hyponatremia. Sodium doing better with current therapy/interventions; mentation seems stable if not a bit better as well; no apparent issues or problems currently or overnight; no apparent distress noted at the time of my visit; working with PT/OT as tolerated. Exam Narrative: General: WD/WN female in NAD Heart: normal S1 and S2; no rub Lungs: clear to auscultation Abdomen: soft, nontender, nondistended, positive bowel sounds Extremities: no cyanosis or clubbing; no edema Skin: no rash Objective Data Vital Signs Vital Signs: Vital Signs Temp Pulse Resp BP Pulse Ox O2 Del Method 04/05/23 09:30 70 108/59 L 99 04/05/23 09:35 Room Air 04/05/23 11:55 97 Room Air 04/05/23 09:32 76 04/05/23 06:00 98.8 F 76 18 126/67 99 04/04/23 22:00 99.3 F 74 18 127/56 L 99 04/04/23 18:01 76 04/04/23 14:00 97.8 F 80 20 149/62 H 98 Intake/Output Intake/Output: Intake & Output 04/02/23 04/03/23 04/04/23 04/05/23 23:59 23:59 23:59 23:59 Intake Total 820 960 960 240 Output Total 800 350 250 350 Balance 20 610 710 -110 Meds/Results Medications: Active Medications Generic Name Dose Route Start Last Admin Trade Name Byron PRN Reason Stop Dose Admin Acetaminophen 650 mg 03/31/23 16:34 04/05/23 05:18 Acetaminophen 325 Mg Tablet PO 650 mg Q8H PRN Administration Mild Pain (1-3) Or Fever Aspirin 81 mg 04/04/23 09:00 04/05/23 09:32 Aspirin 81 Mg Enteric Tablet PO 81 mg QAM [facility] Administration Atorvastatin Calcium 80 mg 04/03/23 09:00 04/05/23 09:31 Atorvastatin 40 Mg Tablet PO 80 mg DAILY [facility] Administration Bupropion HCl 150 mg 04/01/23 09:00 04/05/23 09:32 Bupropion Hcl Xl (24 Hr) 150 Mg Tabcr PO 150 mg DAILY [facility] Administration Cephalexin HCl 500 mg 04/04/23 06:00 04/05/23 05:18 Cephalexin 500 Mg Capsule PO 04/08/23 22:01 500 mg Q8HR [facility] Administration Clopidogrel Bisulfate 75 mg 04/04/23 12:05 04/05/23 09:32 Clopidogrel Bisulfate 75 Mg Tablet PO 75 mg QAM [facility] Administration Divalproex Sodium 1,000 mg 03/31/23 21:00 04/03/23 20:27 Divalproex Sodium Er 500 Mg Tab.24h PO 1,000 mg HS [facility] Administration Divalproex Sodium 500 mg 04/01/23 08:00 04/05/23 12:05 Divalproex Sodium Er 500 Mg Tab.24h PO 500 mg DAILY@0800 [facility] Administration Enoxaparin Sodium 40 mg 04/01/23 09:00 04/05/23 09:32 Enoxaparin 40 Mg/0.4 Ml Syringe SUB-Q 40 mg DAILY [facility] Administration Furosemide 20 mg 04/01/23 10:50 04/05/23 09:31 Furosemide 20 Mg Tablet PO 20 mg BID [facility] Administration Levothyroxine Sodium 75 mcg
--- NOTE | 2023-04-05 14:07 | PM.IMPN ---
Progress Note: A&P Assessment and Plan (1) Vertebral artery disease: Code(s): I77.9 - Disorder of arteries and arterioles, unspecified Status: Acute Assessment and Plan: 04/03: CTA shows proximal occlusion bilateral vertebral arteries with reconstitution. Neurology consult to see tomorrow, aspirin given. May be cause of symptomatology over the past few weeks. 04/04: Neurology wants to add Plavix for 6 weeks 04/05: Neurology- continue asprin, add plavix 75mg for 6 weeks involve PT and schedule outpt nerve conduction studies. (2) Hyponatremia: Code(s): E87.1 - Hypo-osmolality and hyponatremia Status: Acute Assessment and Plan: Steady decline over the last couple of weeks that has required fluid restriction addition of sodium tabs which have escalated up to 1 g 3 times daily. Nephrology has consulted to help manage. She has had improvement from yesterday to this morning with a rise in her sodium from 122 yesterday to 126 this morning. Hyponatremia may be exacerbating patient's weakness and confusion. 04/01: Nephrology is consulting, labs pending, cosyntropin stem test pending, fluid restriction tightened to 1200 mL 04/02: Sodium 123 again 04/04: Sodium 126 this morning, salt tabs to 1500 mg BID 04/05: Na- 130 on am labs, Continue Sodium Chloride tabs 1500 BID. Nephrology managing appreciate recomendations (3) Recurrent UTI: Code(s): N39.0 - Urinary tract infection, site not specified Status: Acute Assessment and Plan: 04/02: Urine culture positive for E coli, start Rocephin 2 g daily pending sensitivity 04/04: Keflex 500 po Q8H for 5 days 04/05: Denies symptoms. Continue Keflex to completion (4) Bipolar disorder: Code(s): F31.9 - Bipolar disorder, unspecified Status: Acute Assessment and Plan: Some of patient's confusion weakness may be related to overmedication. Because concurretn hyponatremia we will stop Lexapro at this time. Additionally we will change trazodone from scheduled to as needed. Valproic acid level will be checked as she a dose escalation just over a month ago and last level borderline elevated. We will also recheck TSH with reflex as her levothyroxine dose been slightly decreased 100 mcg daily to 75 mcg daily. 04/04: Dystonic posture due to EPS from antipsychotic meds per Neurology. 04/05: Alert and pleasant this am. Understands that Lexapro has been DC'd due to contributing to gait issues (5) Altered mental status: Code(s): R41.82 - Altered mental status, unspecified Status: Acute Assessment and Plan: Likely multifactorial including history of bipolar disease, recent loss of her spouse, hyponatremia, possible recurrent UTI--urine culture pending 04/05: Alert at baseline this am (6) Weakness: Code(s): R53.1 - Weakness Status: Acute Assessment and Plan: Will consult PT and OT to continue therapy and determine if further SNF/swing rehab will be needed after this acute care hospitalization. 04/05: Worked will with PT, PT note improvement and patients hope to return home with daughter. (7) Adult failure to thrive: Code(s): R62.7 - Adult failure to thrive Status: Acute Assessment and Plan: Will continue Megace and dietary supplements consult dietitian work with PT OT attempt to correct hyponatremia as well optimize psychiatric medications. Multifactorial for sure 04/05: Stated appetite has increased today. (8) Moderate protein-calorie malnutrition: Code(s): E44.0 - Moderate protein-calorie malnutrition Status: Acute Assessment and Plan: Moderate protein calorie malnutrition related to inadequate oral intake as evidenced by a significant weight loss of -20% x 1 year, reported po intake for several months, NFPE findings for moderate muscle and subcutaneous fat loss. (9) Hypertension: Code(s): I10 - Essential (primary) hypertension Status: Acute Asses
[2023-04-05] MEDS: DIVALPROEX SODIUM ER 500 MG TAB.24H 1000 MG PO (20:41)
[2023-04-06] MEDS: LEVOTHYROXINE SODIUM 75 MCG TABLET PO (05:03)
[2023-04-06] MEDS: CEPHALEXIN 500 MG CAPSULE PO ×2 (05:03→13:25)
[2023-04-06 06:52] LABS: Alanine Aminotransferase 18 U/L (6-35); Albumin Level 2.7 g/dL (3.5-5.1); Alkaline Phosphatase 61 U/L (38-126); Anion Gap 6 mmol/L (8-16); Aspartate Amino Transferase 26 U/L (14-36); Bilirubin,Total 0.3 mg/dL (0.2-1.3); Blood Urea Nitrogen 9 mg/dL (7-17); Calcium 8.9 mg/dL (8.4-10.2); Carbon Dioxide 23 mmol/L (22-30); Chloride 100 mmol/L (98-107); Estimated CRCL calculation 72 ml/min; Estimated Glomerular Filt Rate > 60; Glucose 92 mg/dL (65-110); Potassium 3.8 mmol/L (3.4-5.0); Sodium 129 mmol/L (137-145)
[2023-04-06 06:53] VITALS: BP 118/52; PULSE 65; RESP 14; TEMP 36.5; O2SAT 99
[2023-04-06 06:59] LABS: Basophils Absolute Auto 0.1 K/mm3 (0.0-0.1); Basophils Percent Auto 0.8 % (0.2-1.2); Eosinophils Absolute Auto 0.1 K/mm3 (0-0.3); Eosinophils Percent Auto 0.8 % (0-4.4); Hemoglobin 10.2 g/dL (12.0-15.0); Immature Granulocyte Absolute 0.18 K/mm3 (0.00-0.031); Immature Granulocyte Percent A 1.5 % (0-0.5); Lymphocytes Absolute Auto 3.05 K/mm3 (0.9-3.2); Lymphocytes Percent Auto 25.8 % (18.3-44.2); Mean Corpuscular HGB Conc 32.9 g/dl (32-36); Mean Corpuscular Hemoglobin 31.5 pg (26-34); Mean Corpuscular Volume 95.7 fl (80-100); Mean Platelet Volume 9.2 fl (7.4-10.4); Monocytes Absolute Auto 1.5 K/mm3 (0.1-0.6); Monocytes Percent Auto 12.8 % (2.6-8.5); Neutrophils Absolute Auto 6.9 K/mm3 (1.3-6.7); Neutrophils Percent Auto 58.3 % (45.5-73.1); Platelet Count Result 422 k/mm3 (150-375); Red Blood Count 3.24 M/mm3 (4.2-5.4); Red Cell Distribution Width 15.9 % (11.5-14.5); White Blood Count 11.8 K/mm3 (4.5-10.0)
[2023-04-06] MEDS: SODIUM CHLORIDE 500 MG TABLET PO (09:09)
[2023-04-06] MEDS: CLOPIDOGREL BISULFATE 75 MG TABLET PO (09:09)
[2023-04-06 09:10] VITALS: PULSE 82
[2023-04-06] MEDS: METOPROLOL SUCCINATE EXT REL 50 MG TABCR PO (09:10)
[2023-04-06] MEDS: POTASSIUM CHLORIDE 20 MEQ ER TABLET 40 MEQ PO (09:10)
[2023-04-06] MEDS: MEGESTROL ACETATE (*CHEMO) 40 MG TABLET PO ×2 (09:10→13:25)
[2023-04-06] MEDS: ENOXAPARIN 40 MG/0.4 ML SYRINGE SUB-Q (09:11)
[2023-04-06] MEDS: MONTELUKAST SODIUM 5 MG TABLET PO (09:11)
[2023-04-06] MEDS: buPROPion HCL XL (24 HR) 150 MG TABCR PO (09:11)
[2023-04-06] MEDS: FUROSEMIDE 20 MG TABLET PO (09:11)
[2023-04-06] MEDS: ASPIRIN 81 MG ENTERIC TABLET PO (09:11)
[2023-04-06] MEDS: PSYLLIUM POWDER PACKET 1 PACKET BY MOUTH (09:12)
[2023-04-06] MEDS: NICOTINE (*PBKC) 14 MG PATCH 1 PATCH TRANSDERM (09:12)
[2023-04-06] MEDS: SODIUM CHLORIDE 1 GM TABLET PO (09:13)
[2023-04-06] MEDS: DIVALPROEX SODIUM ER 500 MG TAB.24H PO (09:16)
[2023-04-06] MEDS: EUCERIN CREAM 120 GM JAR 1 APPLIC TOPICAL (09:16)
[2023-04-06] MEDS: ATORVASTATIN 40 MG TABLET 80 MG PO (09:20)
--- NOTE | 2023-04-06 12:01 | PM.PNNEP ---
Progress Note: A&P Assessment and Plan (1) Hyponatremia: Code(s): E87.1 - Hypo-osmolality and hyponatremia Status: Acute Assessment and Plan: improvement noted intermittent low sodiums in the past but not as severe as on this presentation evaluation to date noted: MRI as well as CT and CTA of the brain okay Chest x-ray negative TSH normal cortisol level was low but Cortrosyn stim test is normal urine sodium is not low; urine lytes non-prerenal SPEP without paraproteinemia; UPEP pending medications playing a role - was on lexapro and wellbutrin (but off lexapro now) weight loss noted (~ 20 pounds) -- possible malignancy? -- follow-up outpatient cancer screening s/p 3% saline on 04/02/23 remains on fluid restriction, salt tabs, and lasix follow trend of repeat sodiums (2) UTI (urinary tract infection): Code(s): N39.0 - Urinary tract infection, site not specified Status: Acute Assessment and Plan: urine culture with E.coli on antibiotics (3) Hypertension: Code(s): I10 - Essential (primary) hypertension Status: Acute Assessment and Plan: reasonable control follow trend of hemodynamics Not opposed to discharge from renal perspective if otherwise medically stable; would continue therapy (fluid restriction, lasix, and salt tabs) until repeat labs done to ensure stability in sodium level as well possible weaning of salt tabs and diuretics; if sodium continues to fluctuate, she can follow-up with Dr. Alcaraz in the office for further assessment. Will continue to follow. Subjective Date/time seen: 04/06/23 12:01 Interval history: Follow-up for acute on chronic hyponatremia. Sodium relatively stable with ongoing/current therapy and interventions; no apparent distress noted/voiced at the time of my visit; mentation seems stable if not improving; no other issues/events overnight or earlier this morning. Exam Narrative: General: WD/WN female in NAD Heart: normal S1 and S2; no rub Lungs: clear to auscultation Abdomen: soft, nontender, nondistended, positive bowel sounds Extremities: no cyanosis or clubbing; no edema Skin: no nodules Objective Data Vital Signs Vital Signs: Vital Signs Temp Pulse Resp BP Pulse Ox O2 Del Method 04/06/23 09:10 Room Air 04/06/23 09:10 82 04/06/23 06:53 97.7 F 65 14 118/52 L 99 04/05/23 22:00 97.8 F 68 18 124/59 L 100 04/05/23 16:32 73 04/05/23 14:00 96.9 F L 73 16 106/45 L 100 Intake/Output Intake/Output: Intake & Output 04/03/23 04/04/23 04/05/23 04/06/23 23:59 23:59 23:59 23:59 Intake Total 960 960 480 358 Output Total 350 250 350 Balance 610 710 130 358 Meds/Results Medications: Active Medications Generic Name Dose Route Start Last Admin Trade Name Freq PRN Reason Stop Dose Admin Acetaminophen 650 mg 03/31/23 16:34 04/05/23 05:18 Acetaminophen 325 Mg Tablet PO 650 mg Q8H PRN Administration Mild Pain (1-3) Or Fever Aspirin 81 mg 04/04/23 09:00 04/06/23 09:11 Aspirin 81 Mg Enteric Tablet PO 81 mg QAM [facility] Administration Atorvastatin Calcium 80 mg 04/03/23 09:00 04/06/23 09:20 Atorvastatin 40 Mg Tablet PO 80 mg DAILY [facility] Administration Bupropion HCl 150 mg 04/01/23 09:00 04/06/23 09:11 Bupropion Hcl Xl (24 Hr) 150 Mg Tabcr PO 150 mg DAILY [facility] Administration Cephalexin HCl 500 mg 04/04/23 06:00 04/06/23 05:03 Cephalexin 500 Mg Capsule PO 04/08/23 22:01 500 mg Q8HR [facility] Administration Clopidogrel Bisulfate 75 mg 04/04/23 12:05 04/06/23 09:09 Clopidogrel Bisulfate 75 Mg Tablet PO 75 mg QAM [facility] Administration Divalproex Sodium 1,000 mg 03/31/23 21:00 04/05/23 20:41 Divalproex Sodium Er 500 Mg Tab.24h PO 1,000 mg HS [facility] Administration Divalproex Sodium 500 mg 04/01/23 08:00 04/06/23 09:16 Divalproex Sodium Er 500 Mg Tab.24h PO 500 mg
--- NOTE | 2023-04-06 12:40 | PM.DS ---
DS: Admitting Diagnosis Discharge Date 04/06/23 Admitting Diagnosis AMS, Weakness, Hyponatremia, Adult Failure to thrive DS: Discharge Diagnosis Discharge Diagnosis (1) Vertebral artery disease: Code(s): I77.9 - Disorder of arteries and arterioles, unspecified Status: Acute Assessment and Plan: 04/03: CTA shows proximal occlusion bilateral vertebral arteries with reconstitution. Neurology consult to see tomorrow, aspirin given. May be cause of symptomatology over the past few weeks. 04/04: Neurology wants to add Plavix for 6 weeks 04/05: Neurology- continue asprin, add plavix 75mg for 6 weeks involve PT and schedule outpt nerve conduction studies. 04/06: Occlusion could contribute to symptomatology- Neurology continues recommendations plavix, ASA, PT, Nerve conduction study outpatient. Patient will go home with daughter and Skinny for PT (2) Hyponatremia: Code(s): E87.1 - Hypo-osmolality and hyponatremia Status: Acute Assessment and Plan: Steady decline over the last couple of weeks that has required fluid restriction addition of sodium tabs which have escalated up to 1 g 3 times daily. Nephrology has consulted to help manage. She has had improvement from yesterday to this morning with a rise in her sodium from 122 yesterday to 126 this morning. Hyponatremia may be exacerbating patient's weakness and confusion. 04/01: Nephrology is consulting, labs pending, cosyntropin stem test pending, fluid restriction tightened to 1200 mL 04/02: Sodium 123 again 04/04: Sodium 126 this morning, salt tabs to 1500 mg BID 04/05: Na- 130 on am labs, Continue Sodium Chloride tabs 1500 BID. Nephrology managing appreciate recomendations 04/06: Sodium level at 129 today Nephrology- [facility] with patient DC home today with . Stated patient Na levels will continue to fluctuate and can be monitored on outpt basis. (3) Recurrent UTI: Code(s): N39.0 - Urinary tract infection, site not specified Status: Acute Assessment and Plan: 04/02: Urine culture positive for E coli, start Rocephin 2 g daily pending sensitivity 04/04: Keflex 500 po Q8H for 5 days 04/05: Denies symptoms. Continue Keflex to completion 04/06: Complete Keflex PO abx- completion date 04/08 (4) Bipolar disorder: Code(s): F31.9 - Bipolar disorder, unspecified Status: Acute Assessment and Plan: Some of patient's confusion weakness may be related to overmedication. Because concurrent hyponatremia we will stop Lexapro at this time. Additionally we will change trazodone from scheduled to as needed. Valproic acid level will be checked as she a dose escalation just over a month ago and last level borderline elevated. We will also recheck TSH with reflex as her levothyroxine dose been slightly decreased 100 mcg daily to 75 mcg daily. 04/04: Dystonic posture due to EPS from antipsychotic meds per Neurology. 04/05: Alert and pleasant this am. Understands that Lexapro has been DC'd due to contributing to gait issues 04/06: Patients Lexapro has been held throughout admission. Mood and affect have remained stable. Will DC this medication (5) Altered mental status: Code(s): R41.82 - Altered mental status, unspecified Status: Acute Assessment and Plan: Likely multifactorial including history of bipolar disease, recent loss of her spouse, hyponatremia, possible recurrent UTI--urine culture pending 04/05: Alert at baseline this am 2: Patient A/O x 3 this am. (6) Weakness: Code(s): R53.1 - Weakness Status: Acute Assessment and Plan: Will consult PT and OT to continue therapy and determine if further SNF/swing rehab will be needed after this acute care hospitalization. 04/05: Worked will with PT, PT note improvement and patients hope to return home with daughter. 04/06: PT noted patient demonstrates independent bed mobilty, SBA transfers and SBA gait. Progressing Patient stated she is feeling much better at t
[2023-04-06 14:00] VITALS: BP 107/60; PULSE 73; RESP 18; TEMP 36.3; O2SAT 99
[2023-04-06 20:59] LABS: Creatinine, Random Urine 79 mg/dL (20-275); Total Protein/Creatinine Ratio 101 mg/g creat (24-184)
== END 2023-04-06 15:40 | disposition home health service (06) | DRG 68 ==
PROVIDERS: Internal Medicine Nephrology; Nurse Practitioner; Admitting Provider Internal Medicine; PCP Family Medicine; Visit Provider Nurse Practitioner Family
DX: I65.03 Occlusion and stenosis of bilateral vertebral arteries (principal); E44.0 Moderate protein-calorie malnutrition; E87.1 Hypo-osmolality and hyponatremia; N39.0 Urinary tract infection, site not specified; Z68.1 Body mass index [BMI] 19.9 or less, adult; G24.8 Other dystonia; G25.9 Extrapyramidal and movement disorder, unspecified; R47.1 Dysarthria and anarthria; T43.505A Adverse effect of unspecified antipsychotics and neuroleptics, initial encounter; T43.225A Adverse effect of selective serotonin reuptake inhibitors, initial encounter; B96.20 Unspecified Escherichia coli [E. coli] as the cause of diseases classified elsewhere; R62.7 Adult failure to thrive; F31.9 Bipolar disorder, unspecified; E78.5 Hyperlipidemia, unspecified; I10 Essential (primary) hypertension; G62.9 Polyneuropathy, unspecified; E03.9 Hypothyroidism, unspecified; M47.892 Other spondylosis, cervical region; Z66 Do not resuscitate
CPT/HCPCS: 36415; 70450; 70496; 70498; 70544; 70549; 70553; 71045; 80053; 80061; 80164; 81001; 81050; 82533; 82570; 83735; 83883; 83930; 83935; 84155; 84156; 84165; 84166; 84295; 84300; 84443; 84540; 85025; 87086; 87186; 92610; 93306; 96374; 96375; 97110; 97116; 97161; 97165; 97530; 97535; A9270; A9577; G0378; J0696; J0834; J1650; J7131; Q9967

== ENCOUNTER 2023-04-14 12:54 | Outpatient (NON) | payer MEDICARE, SELFPAY ==
[2023-04-14 13:22] LABS: Basophils Absolute Auto 0.05 K/mm3 (0.00-0.10); Basophils Percent Auto 0.5 % (0.0-1.0); Eosinophils Absolute Auto 0.12 K/mm3 (0.02-0.50); Eosinophils Percent Auto 1.1 % (1.0-6.0); Immature Granulocyte Absolute 0.06 K/mm3 (0.00-0.00); Immature Granulocyte Percent A 0.5 % (0.0-0.0); Lymphocytes Absolute Auto 2.07 K/mm3 (1.10-4.50); Lymphocytes Percent Auto 18.9 % (18.0-42.0); Mean Corpuscular HGB Conc 32.4 g/dL (32.0-36.0); Mean Corpuscular Hemoglobin 31.1 pg (27.0-31.0); Mean Corpuscular Volume 95.9 fL (78.0-102.0); Monocytes Absolute Auto 1.19 K/mm3 (0.10-0.90); Monocytes Percent Auto 10.8 % (2.0-11.0); Neutrophils Absolute Auto 7.5 K/mm3 (1.7-7.2); Neutrophils Percent Auto 68.2 % (50.0-70.0); Platelet Count Result 376 K/mm3 (150-420); Red Blood Count 3.86 M/mm3 (4.20-5.40); Red Cell Distribution Width 15.6 % (11.6-14.4)
[2023-04-14 13:56] LABS: Alanine Aminotransferase 11 U/L (14-59); Albumin Level 2.2 g/dL (3.4-5.0); Alkaline Phosphatase 60 U/L (46-116); Anion Gap 6 mmol/L (8-16); Aspartate Amino Transferase 12 U/L (15-37); Bilirubin Direct 0.1 mg/dL (0-0.2); Bilirubin,Total 0.3 mg/dL (0.00-1.00); Blood Urea Nitrogen 9 mg/dL (7-18); Calcium 8.8 mg/dL (8.5-10.1); Carbon Dioxide 29 mmol/L (21-32); Chloride 100 mmol/L (98-108); Estimated Glomerular Filt Rate > 60; Folic Acid 16.3 ng/mL (8.6->20); Glucose 78 mg/dL (70-99); Osmolality Calculated 277 mOsm/kg (285-295); Potassium 4.2 mmol/L (3.5-5.1); Sodium 135 mmol/L (136-145); Total Protein 6.8 g/dL (6.4-8.2); Vitamin B12 910 pg/mL (193-986)
[2023-04-14 13:58] LABS: Thyroid Stimulating Hormone Reflex 2.28 u/IU/mL (0.36-3.74)
[2023-04-16 16:35] LABS: Valproic Acid 71.7 mg/L (50.0-100.0)
== END 2023-04-14 12:55 | disposition home or self-care (01) ==
LOC: CHSHH 12:56
PROVIDERS: Visit Provider Family Medicine
DX: E11.9 Type 2 diabetes mellitus without complications (principal); I73.9 Peripheral vascular disease, unspecified; E53.8 Deficiency of other specified B group vitamins; E03.9 Hypothyroidism, unspecified; G62.9 Polyneuropathy, unspecified
CPT/HCPCS: 36415; 80053; 80164; 82248; 82607; 82746; 84443; 85025

== ENCOUNTER 2023-05-03 13:02 | Emergency (ER) | payer MEDICARE, SELFPAY ==
--- NOTE | ~2023-05-03 | XR_ITS ---
EXAMINATION: XR chest 1V portable INDICATION: Cough TECHNIQUE: Portable AP chest at 1431 hours COMPARISON: 04/01/2023 FINDINGS: The lungs are free of acute opacities. No pleural effusion or pneumothorax. The cardiomedia stinal silhouette is normal. Surgical clips in the right upper quadrant are likely from prior cholecy stectomy. Cranial migration of the humeral heads with respect to the glenoids is again noted, likely reflecting chronic rotator cuff tears. IMPRESSION: 1. No acute cardiopulmonary abnormality. Reviewed, dictated and finalized at location B. ET RECORDER
--- NOTE | ~2023-05-03 | CT_ITS ---
CT head without contrast Indication: Altered mental status COMPARISON: 04/03/2023 Technique: Serial scans were obtained through the brain without the administration of contrast. Dose reduction technique was used on this scan by utilizing automated exposure control and iterative recon struction technique. The dose-length product (DLP) was 605.33 mGy-cm. Findings: There is no evidence of intracranial hemorrhage, mass lesion, or acute infarct. The ventri cles and subarachnoid spaces are dilated, consistent with mild to moderate atrophy. Low attenuation regions are seen within the periventricular white matter bilaterally, likely representing changes fro m chronic microvascular ischemic disease. There is no evidence of edema, mass effect or midline shif t. The visualized paranasal sinuses and mastoid air cells are clear. Impression: No intracranial hemorrhage, mass, or acute infarct. Atrophy and chronic white matter changes, as above. Reviewed, dictated and finalized at location . [employer] Impression: No intracranial hemorrhage, mass, or acute infarct. Atrophy and chronic white matter changes, as above.
--- NOTE | 2023-05-03 13:05 | ED.WEAKNESS ---
HPI - Weakness General Chief complaint: Weakness Stated complaint: weakness Time Seen by Provider: 05/03/23 13:04 Source: patient Mode of arrival: EMS Limitations: no limitations History of Present Illness HPI Narrative: 67-year-old female, smoker with a history of bipolar, extrapyramidal movement disorder, dystonia, gait instability, hypertension, hypothyroidism, dyslipidemia, bilateral proximal carotid occlusion with distal revascularization was recently admitted from 04/01/2019 [phone] for failure to thrive, urinary tract infection and hyponatremia. After discharge the patient was followed by home health till 04/20/2023. The patient presents to the ER after EMS was called by the primary care physician for -- patient was unable to get off the bed -- failure to thrive -- generalized weakness -- decreased oral intake the patient denies any acute neuro deficits. No headache. No chest pain or shortness of breath nausea/vomiting /abdominal pain / diarrhea. No dysuria or hematuria MD Complaint: generalized weakness Onset (ago): day(s) Duration: constant Location: generalized Severity: moderate Relieving factors: none Exacerbating factors: none Associated symptoms: denies other symptoms Related Data Home Medications Medication Instructions Recorded Confirmed trazodone 50 mg tablet 100 mg PO HS 03/25/19 05/03/23 divalproex 500 mg tablet,extended 1,000 mg PO HS 03/17/23 05/03/23 release 24 hr levothyroxine 75 mcg tablet 75 mcg PO DAILY 03/17/23 05/03/23 montelukast 5 mg chewable tablet 5 mg PO DAILY 03/17/23 05/03/23 divalproex 500 mg tablet,extended 500 mg PO DAILY 03/31/23 05/03/23 release 24 hr atorvastatin 40 mg tablet 40 mg PO DAILY 05/03/23 05/03/23 diclofenac sodium 75 mg 75 mg PO BID 05/03/23 05/03/23 tablet,delayed release escitalopram oxalate 10 mg tablet 10 mg PO HS 05/03/23 05/03/23 folic acid 800 mcg tablet 0.8 mg PO DAILY 05/03/23 05/03/23 Allergies Allergy/AdvReac Type Severity Reaction Status Date / Time No Known Allergies Allergy Verified 05/03/23 14:45 Review of Systems Review of Systems: All systems reviewed & are unremarkable except as noted in HPI and below Constitutional: Constitutional: Reports as per HPI, Reports no additional constitutional complaints and Reports weakness Eyes: Eyes: Reports as per HPI and Reports no additional eye complaints ENT: Reports system reviewed and no additional complaints, except as documented and Reports as per HPI Cardiovascular: Cardiovascular: Reports as per HPI and Reports no additional cardiovascular complaints Respiratory: Respiratory: Reports as per HPI and Reports no additional respiratory complaints Gastrointestinal: Gastrointestinal: Reports as per HPI Genitourinary: Genitourinary: Reports no additional female genitourinary complaints Musculoskeletal: Musculoskeletal: Reports no additional musculoskeletal complaints and Reports as per HPI Integumentary/Breasts: Skin/Breast: Reports system reviewed and no additional complaints, except as docu and Reports as per HPI Neurologic: Reports weakness ( generalized weakness without any focal deficits. Speech is clear) Psychiatric: Psychiatric: Reports no additional psychiatric complaints Endocrine: Endocrine: Reports no additional endocrine complaints and Reports as per HPI Hematologic/Lymphatic: Hematologic/Lymphatic: Reports no additional hematologic/lymphatic complaints and Reports as per HPI Allergic/Immunologic: Allergic/Immunologic: Reports no additional allergic/immunologic complaints and Reports as per HPI [facility] Past Medical History Medical History Ascending aortic aneurysm Bipolar disorder Cataracts, bilateral Depression Dysuria Hyperlipidemia Hypertension Hypothyroidism Left shoulder pain Malnutrition On valproic acid therapy Peripheral vascular disease Seasonal allergies Tobacco abuse Surgical History Morgan
[2023-05-03 13:10] VITALS: BP 112/76; PULSE 84; RESP 19; TEMP 36.6; O2SAT 98
[2023-05-03 13:30] VITALS: BP 92/78; PULSE 74; RESP 20; O2SAT 96
--- NOTE | 2023-05-03 13:33 | ECG_ITS ---
Measurements Intervals [place] Rate: 76 P: 69 [place]: 133 QRS: 54 QRSD: 74 T: -4 QT: 379 QTc: 427 Interpretive Statements SINUS RHYTHM NONSPECIFIC ST & T-WAVE ABNORMALITY- DIFFUSE LEADS BASELINE ARTIFACT- I, III, AVR, AVL, AVF, V1-V2 BORDERLINE ECG COMPARED TO ECG 03/17/2023 17:05:12 SINUS RHYTHM NOW PRESENT Electronically Signed On 05-03-2023 14:13:03 [employer] by Lazaro Zavala D.O.
[2023-05-03 13:55] LABS: Basophils Absolute Auto 0.06 K/mm3 (0.00-0.10); Basophils Percent Auto 0.4 % (0.0-1.0); Eosinophils Absolute Auto 0.03 K/mm3 (0.02-0.50); Eosinophils Percent Auto 0.2 % (1.0-6.0); Immature Granulocyte Absolute 0.06 K/mm3 (0.00-0.00); Immature Granulocyte Percent A 0.4 % (0.0-0.0); Lymphocytes Absolute Auto 1.79 K/mm3 (1.10-4.50); Lymphocytes Percent Auto 10.7 % (18.0-42.0); Mean Corpuscular HGB Conc 32.4 g/dL (32.0-36.0); Mean Corpuscular Hemoglobin 31.2 pg (27.0-31.0); Mean Corpuscular Volume 96.1 fL (78.0-102.0); Mean Platelet Volume 9.6 fl (9.2-11.8); Monocytes Percent Auto 10.2 % (2.0-11.0); Neutrophils Absolute Auto 13.1 K/mm3 (1.7-7.2); Neutrophils Percent Auto 78.1 % (50.0-70.0); Platelet Count Result 298 K/mm3 (150-420); Red Blood Count 3.85 M/mm3 (4.20-5.40); Red Cell Distribution Width 14.8 % (11.6-14.4); White Blood Count 16.7 K/mm3 (4.8-10.8)
[2023-05-03 14:09] LABS: Partial Thromboplastin Time 27.6 SEC (23.90-30.70); Prothrombin Time 11.4 Seconds (9.50-12.10)
[2023-05-03 14:14] LABS: Lactic Acid Reflex 1.2 mmol/L (0.4-2.0)
[2023-05-03 14:15] LABS: Alanine Aminotransferase 16 U/L (14-59); Albumin Level 2.1 g/dL (3.4-5.0); Alkaline Phosphatase 101 U/L (46-116); Anion Gap 5 mmol/L (8-16); Aspartate Amino Transferase 18 U/L (15-37); Bilirubin,Total 0.5 mg/dL (0.00-1.00); Blood Urea Nitrogen 9 mg/dL (7-18); Calcium 8.6 mg/dL (8.5-10.1); Carbon Dioxide 31 mmol/L (21-32); Chloride 100 mmol/L (98-108); Creatine Kinase 24 U/L (26-192); Estimated Glomerular Filt Rate > 60; Glucose 90 mg/dL (70-99); Lipase 12 U/L (16-77); Magnesium 2.1 mg/dL (1.8-2.4); Osmolality Calculated 280 mOsm/kg (285-295); Sodium 136 mmol/L (136-145); Troponin I 7.7 ng/L (0.00-60.4)
[2023-05-03 14:23] LABS: Thyroid Stimulating Hormone 1.53 uIU/mL (0.36-3.74)
[2023-05-03 14:30] LABS: SARS-CoV-2 RNA PCR Negative (Negative)
[2023-05-03 14:31] LABS: Influenza A QL RT-PCR Negative (Negative); Influenza B QL RT-PCR Negative (Negative); RSV RNA, RT-PCR Negative (Negative)
[2023-05-03 15:33] LABS: Appearance Urine Clear (Clear); Bilirubin Urine Negative (Negative); Blood Urine Negative (Negative); Color Urine Yellow (Yellow); Glucose Urine UA Negative (Negative); Ketones Urine Trace (Negative); Leukocyte Esterase Ur Negative LEU/UL (Negative); Nitrate Urine Negative (Negative); Protein Urine Trace (Negative); Specific Grav Ur 1.015 (1.010-1.020)
[2023-05-03 15:35] VITALS: BP 98/76; PULSE 74; RESP 20; O2SAT 98
[2023-05-03 15:38] LABS: Add Urine Microscopic? YES; Bacteria Urine 1+ /hpf; RBC Urine None seen /hpf (0-2); Squamous Epithelial Cell Urine Moderate /hpf (Few); WBC Urine None seen /hpf (0-3)
[2023-05-03 16:15] VITALS: BP 112/76; PULSE 79; RESP 20; O2SAT 99
== END 2023-05-03 17:04 | disposition home or self-care (01) ==
PROVIDERS: Emergency Provider Internal Medicine Critical Care Medicine; PCP Family Medicine
DX: R53.1 Weakness (principal); R62.7 Adult failure to thrive; I10 Essential (primary) hypertension; E03.9 Hypothyroidism, unspecified; F32.A Depression, unspecified; E78.5 Hyperlipidemia, unspecified; I73.9 Peripheral vascular disease, unspecified; F17.210 Nicotine dependence, cigarettes, uncomplicated; Z79.899 Other long term (current) drug therapy; Z20.822 Contact with and (suspected) exposure to COVID-19
CPT/HCPCS: 36415; 70450; 71045; 80053; 81001; 82550; 83605; 83690; 83735; 84443; 84484; 85025; 85610; 85730; 87637; 93005; 99284

== ENCOUNTER 2023-05-19 21:13 | Inpatient (IN) | payer MEDICARE, SELFPAY ==
--- NOTE | ~2023-05-19 | CT_ITS ---
EXAMINATION: CTA chest PE protocol DATE: 05/28/2023 05:38 INDICATION: Chest pain, shortness of breath. Elevated d-dimer. Covid-positive. TECHNIQUE: Computed tomography angiography (CTA) of the chest was performed with 100 mL Omnipaque-350 intravenous contrast timed to evaluate the pulmonary arteries. Coronal maximum intensity projection 3D-reconstructions were created by the technologist. Automated exposure control and iterative reconst ruction technique were employed. Exam dose: 159.69 mGy-cm total exam DLP. COMPARISON: 05/28/2023 portable AP chest April 05, 2019 CTA chest FINDINGS: No central pulmonary embolus is evident. The peripheral pulmonary arteries are not optimall y demonstrated due to motion, overlying right upper extremity. There is mild bilateral lower lobe dependent atelectasis, left greater than right.. Again noted is atheromatous plaquing calcification of the thoracic and abdominal aorta, with up to ap proximately 3.6 cm aneurysm at the anterior aortic arch, relatively stable since April 05, 2019. Normal heart size. No pericardial or pleural effusion. No hilar or mediastinal mass lesion or lymphadenopathy. Included skeletal structures are unremarkable, without apparent osteolytic or osteoblastic suspicious lesion. IMPRESSION: Limited examination; no central pulmonary embolus Relatively stable thoracic aortic aneurysm since April 05, 2019 Mild bilateral dependent atelectasis, left greater than right Reviewed, dictated and finalized at Location A. Reviewed, dictated and finalized at location A.
--- NOTE | ~2023-05-19 | CT_ITS ---
EXAMINATION: CT brain wo con INDICATION: Generalized weakness COMPARISON: 05/03/2023 TECHNIQUE: Standard unenhanced head CT. The dose-length product (DLP) was 832.33 mGy-cm. The mA was a djusted according to patient size. Iterative reconstruction technique was employed. FINDINGS: No acute intraparenchymal hemorrhage. No evidence of mass lesion. No evidence of acute infa rction. There is moderate periventricular and subcortical hypodensity probably related to small vesse l ischemic disease. There is moderate prominence of the sulci and ventricles related to cerebral atro phy. Intracranial calcified cerebral atherosclerosis is noted. No extra-axial collections. No mass ef fect or midline shift. Changes in the globes are likely from ocular lens surgery. The visualized sinu ses and mastoid air cells are well aerated. IMPRESSION: 1. No acute intracranial abnormality. 2. Age related findings. Reviewed, dictated and finalized at location F.
--- NOTE | ~2023-05-19 | XR_ITS ---
XR chest 1V portable DATE: 05/28/2023 01:33 INDICATION: Low oxygen saturation, crackling lung zones TECHNIQUE: Portable AP chest on 05/28/2023 at 0137 hours COMPARISON: 05/19/2023 portable AP chest FINDINGS: Normal heart size. Aortic calcification, ectasia. No hilar or mediastinal enlargement. Moderate bilateral pulmonary hyperinflation. No pulmonary infiltrate or consolidation, pleural effusi on or pulmonary vascular congestion or pneumothorax is detected. Old left rib fractures. Severe right glenohumeral osteoarthritis and prominent right rotator cuff atrophy. The left shoulder area is excluded from this radiograph but similar changes were noted on the left on 05/19/2023 chest r adiograph. Osteopenia. IMPRESSION: No active cardiac pulmonary disease or significant change since 05/19/2023 Reviewed, dictated and finalized at location A. IMPRESSION: No active cardiac pulmonary disease or significant change since 04/28
--- NOTE | ~2023-05-19 | XR_ITS ---
EXAMINATION: XR chest 1V INDICATION: Weakness TECHNIQUE: AP view of the chest is obtained. COMPARISON: 05/03/2023 FINDINGS: The lungs are free of acute opacities. No pleural effusion or pneumothorax. The cardiomedia stinal silhouette is normal. Again noted is cranial migration of the humeral heads with respect to th e glenoids, likely reflecting chronic rotator cuff tears. IMPRESSION: 1. No acute cardiopulmonary abnormality. Reviewed, dictated and finalized at location F.
[2023-05-19 21:27] VITALS: BP 118/67; PULSE 66; RESP 16; TEMP 36.6; O2SAT 97
[2023-05-19 21:31] VITALS: BP 128/77; PULSE 66; RESP 14; O2SAT 93
--- NOTE | 2023-05-19 21:47 | ED.GENADULT ---
HPI - General Adult General Chief complaint: Unspecified Stated complaint: Failure to Thrive Time Seen by Provider: 05/19/23 21:30 History of Present Illness HPI narrative: The patient is a 67 year-old female, smoker with a history of bipolar, extrapyramidal movement disorder, dystonia, gait instability, hypertension, hypothyroidism, dyslipidemia, bilateral proximal carotid occlusion with distal revascularization was recently admitted from 03/17/2023-04/06/2023 for failure to thrive, urinary tract infection and hyponatremia.? After discharge the patient was followed by home health till 04/20/2023.? The patient was seen on 05/03/2023 in the ER due to failure to thrive. A workup was unremarkable and she was discharged home with her daughter, her JEAN PIERRE. She now re-presents to the ER after EMS was called due to generalized weakness, with inability to take care of herself at home, decreased PO intake (she only drank 1/2 can of Ensure all day today), concerns about dehydration and generalized weakness. symptoms have been worsening over the last 2 weeks per daughter. The patient used to use the walker but now only uses a wheelchair for ambulation. She has had weight loss as well. Symptoms all got worse after her . Daughter would like the patient to be placed in the [facility]. The patient denies any complaints. She denies any acute neuro deficits.? No headache. No chest pain or shortness of breath. No nausea/vomiting /abdominal pain / diarrhea. No dysuria or hematuria Related Data Home Medications Medication Instructions Recorded Confirmed trazodone 50 mg tablet 100 mg PO HS 03/25/19 05/19/23 divalproex 500 mg tablet,extended 1,000 mg PO HS 03/17/23 05/19/23 release 24 hr levothyroxine 75 mcg tablet 75 mcg PO DAILY 03/17/23 05/19/23 montelukast 5 mg chewable tablet 5 mg PO DAILY 03/17/23 05/19/23 divalproex 500 mg tablet,extended 500 mg PO DAILY 03/31/23 05/19/23 release 24 hr atorvastatin 40 mg tablet 80 mg PO DAILY 05/03/23 05/19/23 escitalopram oxalate 10 mg tablet 10 mg PO HS 05/03/23 05/19/23 folic acid 800 mcg tablet 0.8 mg PO DAILY 05/03/23 05/19/23 Vitamin B-12 2,500 mcg PO DAILY 05/19/23 05/19/23 buspirone 10 mg tablet 10 mg PO BID 05/19/23 05/19/23 capsaicin 0.075 % topical cream See Rx Instructions .Route .COMPLEX 05/19/23 05/19/23 (Arthritis Pain Relief (capsaicin)) Allergies Allergy/AdvReac Type Severity Reaction Status Date / Time No Known Allergies Allergy Verified 05/19/23 21:25 Review of Systems Review of Systems: All systems reviewed & are unremarkable except as noted in HPI and below Constitutional: Constitutional: Denies chills, Denies excessive sweating, Reports fatigue, Denies fever(s), Denies headache(s), Reports weakness (generalized) and Reports weight loss Eyes: Eyes: Denies change in vision and Denies photophobia ENT: Denies dysphagia, Denies dizziness, Denies headache(s), Denies lip swelling, Denies nasal congestion, Denies sore throat and Denies tongue swelling Cardiovascular: Cardiovascular: Denies chest pain, Denies syncope, Denies rapid heart rate and Denies dyspnea Respiratory: Respiratory: Denies cough, Denies dyspnea and Denies wheezing Gastrointestinal: Gastrointestinal: Denies abdominal pain, Denies constipation, Denies dysphagia, Denies diarrhea, Denies nausea and Denies vomiting Genitourinary: Genitourinary: Denies hematuria, Denies urinary frequency, Denies dysuria and Denies urinary urgency Musculoskeletal: Musculoskeletal: Denies back pain, Denies myalgias, Denies arthralgias, Denies joint swelling and Denies numbness Integumentary/Breasts: Skin/Breast: Denies pruritus, Denies erythema and Denies rash Neurologic: Denies confusion, Denies dizziness, Denies syncope, Denies headache(s), Denies focal weakness and Denies numbness Psychiatric: Psychiatric: Denies anxiety and Denies confusion Endocrine: Endocrine: Denies excessive sweating Hematologic/Lymphatic:
--- NOTE | 2023-05-19 21:57 | ECG_ITS ---
Measurements Intervals [place] Rate: 61 P: 85 [place]: 132 QRS: 36 QRSD: 77 T: 67 QT: 404 QTc: 409 Interpretive Statements SINUS RHYTHM POSSIBLE LEFT ATRIAL ENLARGEMENT BORDERLINE ST-T WAVE ABNORMALITY- ANTEROLAT/HIGH LAT LEADS BASELINE ARTIFACT- I, II, III, AVR, AVL, AVF, V1-V6 BORDERLINE ECG COMPARED TO ECG 05/03/2023 13:40:52 NO SIGNIFICANT CHANGES Electronically Signed On 05-20-2023 7:32:06 CDT by Lazaro Zavala D.O.
[2023-05-19] MEDS: SODIUM CHLORIDE 0.9% IV 1,000 ML 999 ML IV CONT (22:10)
[2023-05-19 22:13] LABS: Basophils Absolute Auto 0.06 K/mm3 (0.00-0.10); Basophils Percent Auto 0.3 % (0.0-1.0); Eosinophils Absolute Auto 0.06 K/mm3 (0.02-0.50); Eosinophils Percent Auto 0.3 % (1.0-6.0); Hematocrit 37.1 % (35.0-42.0); Hemoglobin 11.9 g/dL (11.7-13.8); Immature Granulocyte Absolute 0.07 K/mm3 (0.00-0.00); Immature Granulocyte Percent A 0.4 % (0.0-0.0); Lymphocytes Absolute Auto 2.33 K/mm3 (1.10-4.50); Lymphocytes Percent Auto 12.8 % (18.0-42.0); Mean Corpuscular HGB Conc 32.1 g/dL (32-36); Mean Corpuscular Hemoglobin 31.3 pg (27.0-31.0); Mean Corpuscular Volume 97.6 fL (78.0-102.0); Mean Platelet Volume 9.8 fl (9.2-11.8); Monocytes Percent Auto 13.7 % (2.0-11.0); Neutrophils Absolute Auto 13.17 K/mm3 (1.70-7.20); Neutrophils Percent Auto 72.5 % (50.0-70.0); Platelet Count Result 236 K/mm3 (150-420); Red Cell Distribution Width 15.4 % (11.6-14.4); White Blood Count 18.2 K/mm3 (4.8-10.8)
[2023-05-19 22:29] VITALS: BP 136/50; PULSE 71; RESP 14; O2SAT 94
[2023-05-19 22:30] LABS: Alanine Aminotransferase 49 U/L (14-59); Albumin Level 1.7 g/dL (3.4-5.0); Alkaline Phosphatase 81 U/L (46-116); Anion Gap 8 mmol/L (8-16); Aspartate Amino Transferase 61 U/L (15-37); Bilirubin,Total 0.4 mg/dL (0.00-1.00); Blood Urea Nitrogen 12 mg/dL (7-18); Calcium 8.4 mg/dL (8.5-10.1); Carbon Dioxide 28 mmol/L (21-32); Chloride 103 mmol/L (98-108); Creatine Kinase 423 U/L (26-192); Estimated CRCL calculation 62 ml/min; Estimated Glomerular Filt Rate > 60; Glucose 89 mg/dL (70-99); Magnesium 1.8 mg/dL (1.8-2.4); Osmolality Calculated 286 mOsm/kg (285-295); Potassium 4.2 mmol/L (3.5-5.1); Sodium 139 mmol/L (136-145); Total Protein 5.3 g/dL (6.4-8.2); Troponin I 8.9 ng/L (0.00-60.4)
[2023-05-19 22:31] VITALS: BP 127/74; PULSE 68; RESP 14; O2SAT 97
[2023-05-19 22:34] LABS: Lactic Acid Reflex 1.3 mmol/L (0.4-2.0)
[2023-05-19 22:35] LABS: Ethanol < 3 mg/dL (0-6)
[2023-05-19 22:39] LABS: Thyroid Stimulating Hormone Reflex 3.57 u/IU/mL (0.36-3.74)
[2023-05-19 22:45] VITALS: O2SAT 95
[2023-05-19 22:48] LABS: SARS-CoV-2 RNA PCR Negative (Negative)
[2023-05-19 22:51] LABS: Influenza A QL RT-PCR Negative (Negative); Influenza B QL RT-PCR Negative (Negative); RSV RNA, RT-PCR Negative (Negative)
[2023-05-19 23:17] LABS: Appearance Urine Clear (Clear); Bilirubin Urine Negative (Negative); Blood Urine Negative (Negative); Color Urine Yellow (Yellow); Glucose Urine UA Negative (Negative); Ketones Urine Trace (Negative); Leukocyte Esterase Ur Negative LEU/UL (Negative); Nitrate Urine Negative (Negative); Protein Urine Negative (Negative)
[2023-05-19 23:22] LABS: Add Urine Microscopic? YES; Bacteria Urine Trace /hpf; RBC Urine None seen /hpf (0-2); Squamous Epithelial Cell Urine Rare /hpf (Few); WBC Urine None seen /hpf (0-3)
[2023-05-19 23:23] LABS: Amphetamine Screen Urine Negative (Negative); Barbiturate Screen Urine Negative (Negative); Benzodiazepines Screen Urine Negative (Negative); Cannabinoid Screen Urine Negative (Negative); Cocaine Screen Urine Negative (Negative); Methadone Screen Urine Negative (Negative); Opiate Screen Urine Negative (Negative); Phencyclidine Screen Urine Negative (Negative)
--- NOTE | 2023-05-19 23:40 | PC.NURSE ---
Attempted to call pt daughter, which went to . Was able to reach Pt son, who states that he will try and get a hold of Seda and have her call us back.
[2023-05-20 00:02] VITALS: BP 144/95; PULSE 54; RESP 18; O2SAT 97
--- NOTE | 2023-05-20 00:05 | PC.NURSE ---
Multiple more calls attempted to JEAN PIERRE Stack without answer
[2023-05-20 00:18] VITALS: O2SAT 97
--- NOTE | 2023-05-20 00:20 | PC.NURSE ---
Updated pt. Pt found to have soiled her depends. Pt cleaned, depends and kathy pad changed. Pt repositioned. No other needs at this time. Call light within reach.
--- NOTE | 2023-05-20 00:24 | PC.NURSE ---
Attempted to call Pt daughter, Seda. No answer. Will keep trying
--- NOTE | 2023-05-20 00:30 | PC.NURSE ---
Contact made with pt son, Herbie. He states that he will try and get a hold of JEAN PIERRE Stack.
--- NOTE | 2023-05-20 00:41 | PC.NURSE ---
Spoke with [place] [employer] dispatch to see about sending an officer to the pt daughter's house to make contact with her due to the numerous attempts to reach her via telephone without success
--- NOTE | 2023-05-20 00:54 | PC.NURSE ---
Pt daughter, Seda called back to ER. Dr. Alvarado updated her on plan for discharge home.
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
--- NOTE | 2023-05-20 01:15 | PC.NURSE ---
This RN spoke with pt at length regarding admission tonight. Pt agreeable for admission
[2023-05-20 01:42] VITALS: BP 110/74; PULSE 61; RESP 14; O2SAT 95
[2023-05-20 02:00] VITALS: BP 109/55; PULSE 69; RESP 19; TEMP 36.9; O2SAT 96
[2023-05-20 02:02] VITALS: BMI 19.0
--- NOTE | 2023-05-20 02:28 | ADMGEN ---
This patient, Maritza Noriega, was admitted to 2nd Floor Room 208-2. Patient oriented to hospital policies and general routines including ID bracelet, bed and alarms, visiting hours, pain management, procedures, bathroom and other care routines, personal items, smoking policy, room service/diet, and visiting hours. Pt states she is a DNR; nursing staff will check old files for paperwork. Patient are encouraged to report perceived risks to care and to ask questions if they do not understand what they are told or what they should do.
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
[2023-05-20] MEDS: LEVOTHYROXINE SODIUM 75 MCG TABLET PO (07:14)
[2023-05-20 08:00] VITALS: BP 114/50; PULSE 76; RESP 14; RESP 16; TEMP 36.6; O2SAT 100
[2023-05-20] MEDS: POTASSIUM CHLORIDE 20 MEQ ER TABLET 40 MEQ PO (09:24)
[2023-05-20] MEDS: buPROPion HCL XL (24 HR) 150 MG TABCR PO (09:25)
[2023-05-20] MEDS: CYANOCOBALAMIN 500 MCG TABLET 2500 MCG PO (09:25)
[2023-05-20] MEDS: busPIRone HCL 5 MG TABLET 10 MG PO ×2 (09:25→20:51)
[2023-05-20] MEDS: DIVALPROEX SODIUM ER 500 MG TAB.24H PO (09:25)
[2023-05-20] MEDS: MONTELUKAST SODIUM 5 MG TABLET PO (09:27)
[2023-05-20] MEDS: FOLIC ACID 0.4 MG TABLET 0.8 MG PO (09:27)
[2023-05-20] MEDS: MEGESTROL ACETATE (*CHEMO) 40 MG TABLET PO ×4 (09:28→20:52)
[2023-05-20] MEDS: GABAPENTIN 100 MG CAPSULE PO ×3 (09:28→16:50)
[2023-05-20] MEDS: ATORVASTATIN 40 MG TABLET 80 MG PO (09:29)
[2023-05-20] MEDS: ASPIRIN 81 MG ENTERIC TABLET PO (09:38)
[2023-05-20] MEDS: ENOXAPARIN 40 MG/0.4 ML SYRINGE SUB-Q (13:23)
--- NOTE | 2023-05-20 13:48 | PM.IMHP ---
H&P: HPI History of Present Illness Date/Time: 05/20/23 13:48 Chief Complaint: Failure to thrive Narrative: This is a 67-year-old female with a significant past medical history smoking, bipolar disorder, extra peridium movement disorder, dystonia, gait instability, hypertension, hypothyroidism, dyslipidemia, bilateral proximal carotid occlusion with distal revascularization who presents to the hospital with failure to thrive. Patient had a recent hospitalization from 03/17/2023-04/06/2023 for failure to thrive, urinary tract infection, hyponatremia. After discharge patient was followed by home care until 04/20/2023. She was also seen in the emergency room on 05/02 4 failure to thrive as well However she was not admitted this round. Patient re-presented to the emergency room after EMS was called due to generalized weakness and inability to take care of herself, decreased oral intake of food and fluid, with concerns of dehydration. Per the daughter report patient gotten worse over the past 2 weeks. Patient used to use a walker but now only uses a wheelchair for getting around. She also has a significant weight loss due to her poor oral intake. Of note patient recently lost her and that is when the symptoms started getting worse. Daughter is requesting jail placement at this time as she is unable to care for her. workup in the hospital include a head CT which was negative for any acute intracranial process, age-related changes. A chest x-ray which was negative for any acute cardiopulmonary process. Initial labs showing a white blood cell count of 18.2, calcium 8.4, total CK 423, total protein 5.3, albumin 1.7. A urine was obtained and showed trace ketones, 8.0 urine urobilinogen, otherwise normal. Urine drug screen was negative. Respiratory panel was negative for influenza a and B, RSV, COVID. EKG showing sinus rhythm, rate of 61, QTC 409. On examination today patient appears weak and frail, minimal interaction as she does is right back to sleep and does not participate in conversation. Review of Systems Review of Systems: minimal interaction, withdrawn, unable to assess review of systems at this time ROS unobtainable: Yes unobtainable due to medical condition [facility] Past Medical History Medical History Ascending aortic aneurysm Bipolar disorder Cataracts, bilateral Depression Dysuria Hyperlipidemia Hypertension Hypothyroidism Left shoulder pain Malnutrition Muscular deconditioning On valproic acid therapy Peripheral vascular disease Seasonal allergies Tobacco abuse Surgical History Surgical History History of carpal tunnel surgery Social History Social History Smoking packs per day: 1 Smoking cigarettes per day: 20.0 Years smoked: 10 Smoking pack-years: 10.00 Smoking status: Former smoker Tobacco type: cigarettes Alcohol intake: never Substance use: never Substance use type: does not use Do You Feel Safe in your Home?: No Lack of Transportation: YES Lack of Food: Often True Current Housing: I Have Housing Concerned About Future Housing: Decline to Answer Difficulty Paying Gas/Electric Bills: No Difficulty Paying for Meds: YES Currently Unemployed: No Education: Grade School Difficulty w/ Childcare or Family Care: No Living arrangements: with family Additional living arrangements comments: . 3 adult children. Spiritual care concerns: No Meds Home Medications and Allergies Home Medications Medication Instructions Recorded Confirmed Type trazodone 50 mg tablet 100 mg PO HS 03/25/19 05/19/23 History divalproex 500 mg tablet,extended 1,000 mg PO HS 03/17/23 05/19/23 History release 24 hr levothyroxine 75 mcg tablet 75 mcg PO DAILY 03/17/23 05/19/23 History montelukast 5 mg
[2023-05-20 16:00] VITALS: BP 110/60; PULSE 74; RESP 14; TEMP 36.2; O2SAT 100
[2023-05-20] MEDS: traZODone HCL 50 MG TABLET 100 MG PO (20:52)
[2023-05-20] MEDS: ESCITALOPRAM OXALATE 10 MG TABLET PO (20:53)
[2023-05-20] MEDS: DIVALPROEX SODIUM ER 500 MG TAB.24H 1000 MG PO (20:53)
[2023-05-21] VITALS: BP 161/71; PULSE 75; RESP 15; TEMP 36.4; O2SAT 94
[2023-05-21] MEDS: LEVOTHYROXINE SODIUM 75 MCG TABLET PO (06:10)
[2023-05-21 06:47] LABS: Basophils Absolute Auto 0.07 K/mm3 (0.00-0.10); Basophils Percent Auto 0.7 % (0.0-1.0); Eosinophils Absolute Auto 0.05 K/mm3 (0.02-0.50); Eosinophils Percent Auto 0.5 % (1.0-6.0); Hematocrit 35.5 % (35.0-42.0); Hemoglobin 11.6 g/dL (11.7-13.8); Immature Granulocyte Absolute 0.07 K/mm3 (0.00-0.00); Immature Granulocyte Percent A 0.7 % (0.0-0.0); Lymphocytes Percent Auto 23.1 % (18.0-42.0); Mean Corpuscular HGB Conc 32.7 g/dL (32-36); Mean Corpuscular Hemoglobin 31.3 pg (27.0-31.0); Mean Corpuscular Volume 95.7 fL (78.0-102.0); Mean Platelet Volume 9.8 fl (9.2-11.8); Monocytes Absolute Auto 1.19 K/mm3 (0.10-0.90); Monocytes Percent Auto 11.4 % (2.0-11.0); Neutrophils Absolute Auto 6.62 K/mm3 (1.70-7.20); Neutrophils Percent Auto 63.6 % (50.0-70.0); Platelet Count Result 223 K/mm3 (150-420); Red Blood Count 3.71 M/mm3 (4.20-5.40); Red Cell Distribution Width 15.5 % (11.6-14.4); White Blood Count 10.4 K/mm3 (4.8-10.8)
[2023-05-21 07:53] LABS: Alanine Aminotransferase 52 U/L (14-59); Albumin Level 1.8 g/dL (3.4-5.0); Alkaline Phosphatase 84 U/L (46-116); Anion Gap 7 mmol/L (8-16); Aspartate Amino Transferase 67 U/L (15-37); Bilirubin,Total 0.4 mg/dL (0.00-1.00); Blood Urea Nitrogen 9 mg/dL (7-18); Calcium 8.8 mg/dL (8.5-10.1); Carbon Dioxide 28 mmol/L (21-32); Chloride 101 mmol/L (98-108); Estimated CRCL calculation 62 ml/min; Estimated Glomerular Filt Rate > 60; Glucose 78 mg/dL (70-99); Magnesium 1.9 mg/dL (1.8-2.4); Osmolality Calculated 279 mOsm/kg (285-295); Potassium 3.7 mmol/L (3.5-5.1); Sodium 136 mmol/L (136-145); Total Protein 5.3 g/dL (6.4-8.2)
[2023-05-21 08:00] VITALS: BP 112/72; PULSE 85; RESP 16; TEMP 36.7; O2SAT 94
[2023-05-21] MEDS: POTASSIUM CHLORIDE 20 MEQ ER TABLET 40 MEQ PO (10:22)
[2023-05-21] MEDS: ENOXAPARIN 40 MG/0.4 ML SYRINGE SUB-Q (10:22)
[2023-05-21] MEDS: CYANOCOBALAMIN 500 MCG TABLET 2500 MCG PO (10:23)
[2023-05-21] MEDS: FOLIC ACID 0.4 MG TABLET 0.8 MG PO (10:23)
[2023-05-21] MEDS: busPIRone HCL 5 MG TABLET 10 MG PO ×2 (10:24→20:24)
[2023-05-21] MEDS: DIVALPROEX SODIUM ER 500 MG TAB.24H PO (10:24)
[2023-05-21] MEDS: ASPIRIN 81 MG ENTERIC TABLET PO (10:24)
[2023-05-21] MEDS: buPROPion HCL XL (24 HR) 150 MG TABCR PO (10:25)
[2023-05-21] MEDS: GABAPENTIN 100 MG CAPSULE PO ×3 (10:25→17:04)
[2023-05-21] MEDS: MEGESTROL ACETATE (*CHEMO) 40 MG TABLET PO ×4 (10:25→20:16)
[2023-05-21] MEDS: ATORVASTATIN 40 MG TABLET 80 MG PO (10:26)
[2023-05-21] MEDS: MONTELUKAST SODIUM 5 MG TABLET PO (10:27)
--- NOTE | 2023-05-21 11:33 | P.PNIM_ITS ---
Progress Note: A&P Assessment and Plan (1) Adult failure to thrive: Code(s): R62.7 - Adult failure to thrive Status: Acute Assessment and Plan: 05/20/23: * patient has had increased weakness, decreased appetite, and unable to care for herself at home. * Patient has had recent hospital admission for failure to thrive back in February and was hospitalized from 03/17/2023-04/06/2023. After discharge the patient had home health up until 04/20/2023. Since that time she has worsened over the past 2 weeks after her and back to only using a wheelchair. Daughter is requesting placement in a [facility] at this time as she is unable to care for her now that her physical needs have increased. * PT and OT ordered * care coordination consulted for [facility] placement 05/21/23: * Continue with PT and OT (2) Muscular deconditioning: Code(s): R29.898 - Other symptoms and signs involving the musculoskeletal system Status: Acute Assessment and Plan: * see above (3) Generalized weakness: Code(s): R53.1 - Weakness Status: Acute Assessment and Plan: * See above (4) Moderate protein-calorie malnutrition: Code(s): E44.0 - Moderate protein-calorie malnutrition Status: Chronic Assessment and Plan: 05/20/23: * start a regular diet with Ensure with every meal * continue Megace, folic acid, and vitamin supplementation 05/21/23: * encourage p.o. intake of and fluid (5) Hyperlipidemia: Code(s): E78.5 - Hyperlipidemia, unspecified Status: Chronic Assessment and Plan: 05/20/23: * continue atorvastatin and aspirin 05/21/23: * continue with current treatment plan (6) Anxiety: Code(s): F41.9 - Anxiety disorder, unspecified Status: Chronic Assessment and Plan: 05/20/23: * continue BuSpar 05/21/23: * continue with current treatment plan (7) Bipolar disorder: Code(s): F31.9 - Bipolar disorder, unspecified Status: Chronic Assessment and Plan: 05/20/23: * continue Divalproex sodium ER and trazodone 05/21/23: * continue with current treatment plan (8) Depression: Code(s): F32.9 - Major depressive disorder, single episode, unspecified Status: Chronic Assessment and Plan: 05/20/23: * continue Lexapro and Wellbutrin 05/21/23: * continue with current treatment plan (9) Hypothyroidism: Code(s): E03.9 - Hypothyroidism, unspecified Status: Chronic Assessment and Plan: 05/20/23: * continue Synthroid 05/21/23: * continue with current treatment plan Time Spent With Patient Time with patient: 25 - 35 minutes Subjective Date/time seen: 05/21/23 11:33 Interval history: 05/20/23: This is a 67-year-old female with a significant past medical history smoking, bipolar disorder, extra peridium movement disorder, dystonia, gait instability, hypertension, hypothyroidism, dyslipidemia, bilateral proximal carotid occlusion with distal revascularization? who presents to the hospital with failure to thrive.? Patient had a recent hospitalization from 03/17/2023-04/06/2023 for failure to thrive, urinary tract infection, hyponatremia.? After discharge patient was followed by home care until 04/20/2023.? She was also seen in the emergency room on 05/02 4 failure to thrive as well? However she was not admitted this round.? Patient re-presented to the emergency room after EMS was called due to ge
--- NOTE | 2023-05-21 11:33 | PM.IMPN ---
Progress Note: A&P Assessment and Plan (1) Adult failure to thrive: Code(s): R62.7 - Adult failure to thrive Status: Acute Assessment and Plan: 05/20/23: patient has had increased weakness, decreased appetite, and unable to care for herself at home. Patient has had recent hospital admission for failure to thrive back in February and was hospitalized from 03/17/2023-04/06/2023. After discharge the patient had home health up until 04/20/2023. Since that time she has worsened over the past 2 weeks after her and back to only using a wheelchair. Daughter is requesting placement in a [facility] at this time as she is unable to care for her now that her physical needs have increased. PT and OT ordered care coordination consulted for [facility] placement 05/21/23: Continue with PT and OT (2) Muscular deconditioning: Code(s): R29.898 - Other symptoms and signs involving the musculoskeletal system Status: Acute Assessment and Plan: see above (3) Generalized weakness: Code(s): R53.1 - Weakness Status: Acute Assessment and Plan: See above (4) Moderate protein-calorie malnutrition: Code(s): E44.0 - Moderate protein-calorie malnutrition Status: Chronic Assessment and Plan: 05/20/23: start a regular diet with Ensure with every meal continue Megace, folic acid, and vitamin supplementation 05/21/23: encourage p.o. intake of and fluid (5) Hyperlipidemia: Code(s): E78.5 - Hyperlipidemia, unspecified Status: Chronic Assessment and Plan: 05/20/23: continue atorvastatin and aspirin 05/21/23: continue with current treatment plan (6) Anxiety: Code(s): F41.9 - Anxiety disorder, unspecified Status: Chronic Assessment and Plan: 05/20/23: continue BuSpar 05/21/23: continue with current treatment plan (7) Bipolar disorder: Code(s): F31.9 - Bipolar disorder, unspecified Status: Chronic Assessment and Plan: 05/20/23: continue Divalproex sodium ER and trazodone 05/21/23: continue with current treatment plan (8) Depression: Code(s): F32.9 - Major depressive disorder, single episode, unspecified Status: Chronic Assessment and Plan: 05/20/23: continue Lexapro and Wellbutrin 05/21/23: continue with current treatment plan (9) Hypothyroidism: Code(s): E03.9 - Hypothyroidism, unspecified Status: Chronic Assessment and Plan: 05/20/23: continue Synthroid 05/21/23: continue with current treatment plan Time Spent With Patient Time with patient: 25 - 35 minutes Subjective Date/time seen: 05/21/23 11:33 Interval history: 05/20/23: This is a 67-year-old female with a significant past medical history smoking, bipolar disorder, extra peridium movement disorder, dystonia, gait instability, hypertension, hypothyroidism, dyslipidemia, bilateral proximal carotid occlusion with distal revascularization? who presents to the hospital with failure to thrive.? Patient had a recent hospitalization from 03/17/2023-04/06/2023 for failure to thrive, urinary tract infection, hyponatremia.? After discharge patient was followed by home care until 04/20/2023.? She was also seen in the emergency room on 05/02 4 failure to thrive as well? However she was not admitted this round.? Patient re-presented to the emergency room after EMS was called due to generalized weakness and inability to take care of herself, decreased oral intake of food and fluid, with concerns of dehydration.? Per the daughter report patient gotten worse over the past 2 weeks.? Patient used to use a walker but now only uses a wheelchair for getting around.? She also has a significant weight loss due to her poor oral intake.? Of note patient recently lost her and that is when the symptoms started getting worse.? Daughter is requesting [facility] placement at t
[2023-05-21 16:35] VITALS: BP 147/64; PULSE 78; RESP 16; TEMP 36.6; O2SAT 95
[2023-05-21] MEDS: SODIUM CHLORIDE 500 MG TABLET 1500 MG PO (17:04)
[2023-05-21 20:00] VITALS: BP 118/91; PULSE 75; RESP 18; TEMP 36.2; O2SAT 95
[2023-05-21] MEDS: DIVALPROEX SODIUM ER 500 MG TAB.24H 1000 MG PO (20:15)
[2023-05-21] MEDS: traZODone HCL 50 MG TABLET 100 MG PO (20:17)
[2023-05-21] MEDS: ESCITALOPRAM OXALATE 10 MG TABLET PO (20:17)
--- NOTE | 2023-05-21 20:35 | PC.NURSE ---
Lalo Wilson, KIER OPERATOR/Hospitalist, Notified that patients IV was not working. New order received to change Zofran to p.o. No new IV needed at this time.
[2023-05-22] VITALS: BP 105/61; PULSE 74; RESP 16; TEMP 36.3; O2SAT 97
--- NOTE | 2023-05-22 01:06 | PC.NURSE ---
Patient sleeping. Awakens when name is called. Answers questions. Patient turned and repositioned. No c/o offered. Call light within reach. SR up x2, belongings within reach.
[2023-05-22 05:22] LABS: Basophils Absolute Auto 0.05 K/mm3 (0.00-0.10); Basophils Percent Auto 0.5 % (0.0-1.0); Eosinophils Absolute Auto 0.06 K/mm3 (0.02-0.50); Eosinophils Percent Auto 0.6 % (1.0-6.0); Hematocrit 34.1 % (35.0-42.0); Immature Granulocyte Absolute 0.08 K/mm3 (0.00-0.00); Immature Granulocyte Percent A 0.8 % (0.0-0.0); Lymphocytes Absolute Auto 3.03 K/mm3 (1.10-4.50); Lymphocytes Percent Auto 30.1 % (18.0-42.0); Mean Corpuscular HGB Conc 32.3 g/dL (32-36); Mean Corpuscular Volume 96.1 fL (78.0-102.0); Monocytes Absolute Auto 1.22 K/mm3 (0.10-0.90); Monocytes Percent Auto 12.1 % (2.0-11.0); Neutrophils Absolute Auto 5.64 K/mm3 (1.70-7.20); Neutrophils Percent Auto 55.9 % (50.0-70.0); Platelet Count Result 236 K/mm3 (150-420); Red Blood Count 3.55 M/mm3 (4.20-5.40); Red Cell Distribution Width 15.5 % (11.6-14.4); White Blood Count 10.1 K/mm3 (4.8-10.8)
[2023-05-22 05:58] LABS: Alanine Aminotransferase 52 U/L (14-59); Albumin Level 1.7 g/dL (3.4-5.0); Alkaline Phosphatase 83 U/L (46-116); Anion Gap 5 mmol/L (8-16); Aspartate Amino Transferase 60 U/L (15-37); Bilirubin,Total 0.3 mg/dL (0.00-1.00); Blood Urea Nitrogen 8 mg/dL (7-18); Calcium 8.5 mg/dL (8.5-10.1); Carbon Dioxide 30 mmol/L (21-32); Chloride 100 mmol/L (98-108); Estimated CRCL calculation 65 ml/min; Estimated Glomerular Filt Rate > 60; Glucose 86 mg/dL (70-99); Osmolality Calculated 277 mOsm/kg (285-295); Potassium 3.8 mmol/L (3.5-5.1); Sodium 135 mmol/L (136-145); Total Protein 5.7 g/dL (6.4-8.2)
[2023-05-22] MEDS: LEVOTHYROXINE SODIUM 75 MCG TABLET PO (06:46)
[2023-05-22 07:45] VITALS: BP 120/66; PULSE 80; RESP 16; TEMP 36.5; O2SAT 97
--- NOTE | 2023-05-22 08:16 | P.PNIM_ITS ---
Progress Note: A&P Assessment and Plan (1) Adult failure to thrive: Code(s): R62.7 - Adult failure to thrive Status: Acute Assessment and Plan: 05/20/23: * patient has had increased weakness, decreased appetite, and unable to care for herself at home. * Patient has had recent hospital admission for failure to thrive back in February and was hospitalized from 03/17/2023-04/06/2023. After discharge the patient had home health up until 04/20/2023. Since that time she has worsened over the past 2 weeks after her and back to only using a wheelchair. Daughter is requesting placement in a custodial at this time as she is unable to care for her now that her physical needs have increased. * PT and OT ordered * care coordination consulted for custodial placement 05/21/23: * Continue with PT and OT 05/22/2023: * continue PT and OT * will discuss case with Case coordination for custodial placement and rehab needs (2) Muscular deconditioning: Code(s): R29.898 - Other symptoms and signs involving the musculoskeletal system Status: Acute Assessment and Plan: * see above (3) Generalized weakness: Code(s): R53.1 - Weakness Status: Acute Assessment and Plan: * See above (4) Moderate protein-calorie malnutrition: Code(s): E44.0 - Moderate protein-calorie malnutrition Status: Chronic Assessment and Plan: 05/20/23: * start a regular diet with Ensure with every meal * continue Megace, folic acid, and vitamin supplementation 05/21/23: * encourage p.o. intake of and fluid 05/22/2023: * no change to current treatment plan (5) Hyperlipidemia: Code(s): E78.5 - Hyperlipidemia, unspecified Status: Chronic Assessment and Plan: 05/20/23: * continue atorvastatin and aspirin 05/21/23: * continue with current treatment plan (6) Anxiety: Code(s): F41.9 - Anxiety disorder, unspecified Status: Chronic Assessment and Plan: 05/20/23: * continue BuSpar 05/21/23: * continue with current treatment plan (7) Bipolar disorder: Code(s): F31.9 - Bipolar disorder, unspecified Status: Chronic Assessment and Plan: 05/20/23: * continue Divalproex sodium ER and trazodone 05/21/23: * continue with current treatment plan (8) Depression: Code(s): F32.9 - Major depressive disorder, single episode, unspecified Status: Chronic Assessment and Plan: 05/20/23: * continue Lexapro and Wellbutrin 05/21/23: * continue with current treatment plan (9) Hypothyroidism: Code(s): E03.9 - Hypothyroidism, unspecified Status: Chronic Assessment and Plan: 05/20/23: * continue Synthroid 05/21/23: * continue with current treatment plan Time Spent With Patient Time with patient: 15 - 25 minutes Subjective Date/time seen: 05/22/23 08:16 Interval history: 05/20/23: This is a 67-year-old female with a significant past medical history smoking, bipolar disorder, extra peridium movement disorder, dystonia, gait instability, hypertension, hypothyroidism, dyslipidemia, bilateral proximal carotid occlusion with distal revascularization? who presents to the hospital with failure to thrive.? Patient had a recent hospitalization from 03/17/2023-04/06/2023 for failure to thrive, urinary tract infection, hyponatremia.? After discharge patient was followed by home care until 0
--- NOTE | 2023-05-22 08:16 | PM.IMPN ---
Progress Note: A&P Assessment and Plan (1) Adult failure to thrive: Code(s): R62.7 - Adult failure to thrive Status: Acute Assessment and Plan: 05/20/23: patient has had increased weakness, decreased appetite, and unable to care for herself at home. Patient has had recent hospital admission for failure to thrive back in February and was hospitalized from 03/17/2023-04/06/2023. After discharge the patient had home health up until 04/20/2023. Since that time she has worsened over the past 2 weeks after her and back to only using a wheelchair. Daughter is requesting placement in a intermediate at this time as she is unable to care for her now that her physical needs have increased. PT and OT ordered care coordination consulted for intermediate placement 05/21/23: Continue with PT and OT 05/22/2023: continue PT and OT will discuss case with Case coordination for intermediate placement and rehab needs (2) Muscular deconditioning: Code(s): R29.898 - Other symptoms and signs involving the musculoskeletal system Status: Acute Assessment and Plan: see above (3) Generalized weakness: Code(s): R53.1 - Weakness Status: Acute Assessment and Plan: See above (4) Moderate protein-calorie malnutrition: Code(s): E44.0 - Moderate protein-calorie malnutrition Status: Chronic Assessment and Plan: 05/20/23: start a regular diet with Ensure with every meal continue Megace, folic acid, and vitamin supplementation 05/21/23: encourage p.o. intake of and fluid 05/22/2023: no change to current treatment plan (5) Hyperlipidemia: Code(s): E78.5 - Hyperlipidemia, unspecified Status: Chronic Assessment and Plan: 05/20/23: continue atorvastatin and aspirin 05/21/23: continue with current treatment plan (6) Anxiety: Code(s): F41.9 - Anxiety disorder, unspecified Status: Chronic Assessment and Plan: 05/20/23: continue BuSpar 05/21/23: continue with current treatment plan (7) Bipolar disorder: Code(s): F31.9 - Bipolar disorder, unspecified Status: Chronic Assessment and Plan: 05/20/23: continue Divalproex sodium ER and trazodone 05/21/23: continue with current treatment plan (8) Depression: Code(s): F32.9 - Major depressive disorder, single episode, unspecified Status: Chronic Assessment and Plan: 05/20/23: continue Lexapro and Wellbutrin 05/21/23: continue with current treatment plan (9) Hypothyroidism: Code(s): E03.9 - Hypothyroidism, unspecified Status: Chronic Assessment and Plan: 05/20/23: continue Synthroid 05/21/23: continue with current treatment plan Time Spent With Patient Time with patient: 15 - 25 minutes Subjective Date/time seen: 05/22/23 08:16 Interval history: 05/20/23: This is a 67-year-old female with a significant past medical history smoking, bipolar disorder, extra peridium movement disorder, dystonia, gait instability, hypertension, hypothyroidism, dyslipidemia, bilateral proximal carotid occlusion with distal revascularization? who presents to the hospital with failure to thrive.? Patient had a recent hospitalization from 03/17/2023-04/06/2023 for failure to thrive, urinary tract infection, hyponatremia.? After discharge patient was followed by home care until 04/20/2023.? She was also seen in the emergency room on 05/02 4 failure to thrive as well? However she was not admitted this round.? Patient re-presented to the emergency room after EMS was called due to generalized weakness and inability to take care of herself, decreased oral intake of food and fluid, with concerns of dehydration.? Per the daughter report patient gotten worse over the past 2 weeks.? Patient used to use a walker but now only uses a wheelchair for getting around.? She also has a significant weight
[2023-05-22 08:30] VITALS: O2SAT 97
[2023-05-22] MEDS: SODIUM CHLORIDE 500 MG TABLET 1500 MG PO ×2 (10:00→16:45)
[2023-05-22] MEDS: ENOXAPARIN 40 MG/0.4 ML SYRINGE SUB-Q (10:01)
[2023-05-22] MEDS: CYANOCOBALAMIN 500 MCG TABLET 2500 MCG PO (10:01)
[2023-05-22] MEDS: FOLIC ACID 0.4 MG TABLET 0.8 MG PO (10:01)
[2023-05-22] MEDS: MEGESTROL ACETATE (*CHEMO) 40 MG TABLET PO ×4 (10:02→21:27)
[2023-05-22] MEDS: POTASSIUM CHLORIDE 20 MEQ ER TABLET 40 MEQ PO (10:02)
[2023-05-22] MEDS: GABAPENTIN 100 MG CAPSULE PO ×3 (10:02→16:45)
[2023-05-22] MEDS: DIVALPROEX SODIUM ER 500 MG TAB.24H PO (10:02)
[2023-05-22] MEDS: MONTELUKAST SODIUM 5 MG TABLET PO (10:02)
[2023-05-22] MEDS: ASPIRIN 81 MG ENTERIC TABLET PO (10:02)
[2023-05-22] MEDS: ATORVASTATIN 40 MG TABLET 80 MG PO (10:02)
[2023-05-22] MEDS: busPIRone HCL 5 MG TABLET 10 MG PO ×2 (10:03→21:26)
[2023-05-22] MEDS: buPROPion HCL XL (24 HR) 150 MG TABCR PO (10:03)
[2023-05-22 16:00] VITALS: BP 116/63; PULSE 87; RESP 20; TEMP 35.9; O2SAT 96
[2023-05-22] MEDS: DIVALPROEX SODIUM ER 500 MG TAB.24H 1000 MG PO (21:27)
[2023-05-22] MEDS: ESCITALOPRAM OXALATE 10 MG TABLET PO (21:27)
[2023-05-22] MEDS: traZODone HCL 50 MG TABLET 100 MG PO (21:27)
[2023-05-23] VITALS: BP 115/73; PULSE 98; RESP 16; TEMP 36.4; O2SAT 94
--- NOTE | 2023-05-23 04:44 | PC.NURSE ---
Patient was in bed at the start of the shift. Patient was very proud that she was able to feed herself dinner, and ate most of her food. Patient did not require any PRN medications, as she indicated she was not in any pain, and she was easily able to fall asleep. Patient was able to take her medications with applesauce. Patient slept well the rest of the night. Patient was incontinent of bladder. She required a complete bed change. Patient rolls well when being changed. Vitals are WNL.
[2023-05-23 05:46] LABS: Basophils Absolute Auto 0.06 K/mm3 (0.00-0.10); Basophils Percent Auto 0.6 % (0.0-1.0); Eosinophils Absolute Auto 0.09 K/mm3 (0.02-0.50); Eosinophils Percent Auto 0.9 % (1.0-6.0); Hematocrit 35.5 % (35.0-42.0); Hemoglobin 11.4 g/dL (11.7-13.8); Immature Granulocyte Absolute 0.08 K/mm3 (0.00-0.00); Immature Granulocyte Percent A 0.8 % (0.0-0.0); Lymphocytes Percent Auto 27.1 % (18.0-42.0); Mean Corpuscular HGB Conc 32.1 g/dL (32-36); Mean Corpuscular Hemoglobin 31.7 pg (27.0-31.0); Mean Corpuscular Volume 98.6 fL (78.0-102.0); Mean Platelet Volume 9.7 fl (9.2-11.8); Monocytes Absolute Auto 1.19 K/mm3 (0.10-0.90); Monocytes Percent Auto 11.5 % (2.0-11.0); Neutrophils Absolute Auto 6.12 K/mm3 (1.70-7.20); Neutrophils Percent Auto 59.1 % (50.0-70.0); Platelet Count Result 262 K/mm3 (150-420); Red Cell Distribution Width 15.9 % (11.6-14.4); White Blood Count 10.3 K/mm3 (4.8-10.8)
[2023-05-23] MEDS: LEVOTHYROXINE SODIUM 75 MCG TABLET PO (05:47)
[2023-05-23 06:03] LABS: Alanine Aminotransferase 51 U/L (14-59); Albumin Level 1.8 g/dL (3.4-5.0); Alkaline Phosphatase 96 U/L (46-116); Anion Gap 3 mmol/L (8-16); Aspartate Amino Transferase 51 U/L (15-37); Bilirubin,Total 0.2 mg/dL (0.00-1.00); Blood Urea Nitrogen 8 mg/dL (7-18); Calcium 8.6 mg/dL (8.5-10.1); Carbon Dioxide 31 mmol/L (21-32); Chloride 104 mmol/L (98-108); Estimated CRCL calculation 67 ml/min; Estimated Glomerular Filt Rate > 60; Glucose 85 mg/dL (70-99); Osmolality Calculated 283 mOsm/kg (285-295); Potassium 4.5 mmol/L (3.5-5.1); Sodium 138 mmol/L (136-145); Total Protein 5.3 g/dL (6.4-8.2)
[2023-05-23 08:00] VITALS: BP 112/68; PULSE 86; RESP 18; TEMP 36.1; O2SAT 95
[2023-05-23] MEDS: ATORVASTATIN 40 MG TABLET 80 MG PO (08:39)
[2023-05-23] MEDS: ENOXAPARIN 40 MG/0.4 ML SYRINGE SUB-Q (08:39)
[2023-05-23] MEDS: CYANOCOBALAMIN 500 MCG TABLET 2500 MCG PO (08:39)
[2023-05-23] MEDS: POTASSIUM CHLORIDE 20 MEQ ER TABLET 40 MEQ PO (08:40)
[2023-05-23] MEDS: SODIUM CHLORIDE 500 MG TABLET 1500 MG PO ×2 (08:40→16:51)
[2023-05-23] MEDS: DIVALPROEX SODIUM ER 500 MG TAB.24H PO (08:40)
[2023-05-23] MEDS: busPIRone HCL 5 MG TABLET 10 MG PO ×2 (08:40→20:22)
[2023-05-23] MEDS: ASPIRIN 81 MG ENTERIC TABLET PO (08:40)
[2023-05-23] MEDS: MONTELUKAST SODIUM 5 MG TABLET PO (08:41)
[2023-05-23] MEDS: FOLIC ACID 0.4 MG TABLET 0.8 MG PO (08:41)
[2023-05-23] MEDS: buPROPion HCL XL (24 HR) 150 MG TABCR PO (08:41)
[2023-05-23] MEDS: MEGESTROL ACETATE (*CHEMO) 40 MG TABLET PO ×4 (08:41→20:22)
[2023-05-23] MEDS: GABAPENTIN 100 MG CAPSULE PO ×3 (08:41→16:52)
--- NOTE | 2023-05-23 10:49 | P.PNIM_ITS ---
Progress Note: A&P Assessment and Plan (1) Adult failure to thrive: Code(s): R62.7 - Adult failure to thrive Status: Acute Assessment and Plan: 05/20/23: * patient has had increased weakness, decreased appetite, and unable to care for herself at home. * Patient has had recent hospital admission for failure to thrive back in February and was hospitalized from 03/17/2023-04/06/2023. After discharge the patient had home health up until 04/20/2023. Since that time she has worsened over the past 2 weeks after her and back to only using a wheelchair. Daughter is requesting placement in a [facility] at this time as she is unable to care for her now that her physical needs have increased. * PT and OT ordered * care coordination consulted for [facility] placement 05/21/23: * Continue with PT and OT 05/22/2023: * continue PT and OT * will discuss case with Case coordination for [facility]p placement and rehab needs 05/23/2023: * continue PT and OT * insurance has denied SNF placement, family working on appeal process for SNF, case management following (2) Muscular deconditioning: Code(s): R29.898 - Other symptoms and signs involving the musculoskeletal system Status: Acute Assessment and Plan: * see above (3) Generalized weakness: Code(s): R53.1 - Weakness Status: Acute Assessment and Plan: * See above (4) Moderate protein-calorie malnutrition: Code(s): E44.0 - Moderate protein-calorie malnutrition Status: Chronic Assessment and Plan: 05/20/23: * start a regular diet with Ensure with every meal * continue Megace, folic acid, and vitamin supplementation 05/21/23: * encourage p.o. intake of and fluid 05/22/2023: * no change to current treatment plan (5) Hyperlipidemia: Code(s): E78.5 - Hyperlipidemia, unspecified Status: Chronic Assessment and Plan: 05/20/23: * continue atorvastatin and aspirin 05/21/23: * continue with current treatment plan (6) Anxiety: Code(s): F41.9 - Anxiety disorder, unspecified Status: Chronic Assessment and Plan: 05/20/23: * continue BuSpar 05/21/23: * continue with current treatment plan (7) Bipolar disorder: Code(s): F31.9 - Bipolar disorder, unspecified Status: Chronic Assessment and Plan: 05/20/23: * continue Divalproex sodium ER and trazodone 05/21/23: * continue with current treatment plan (8) Depression: Code(s): F32.9 - Major depressive disorder, single episode, unspecified Status: Chronic Assessment and Plan: 05/20/23: * continue Lexapro and Wellbutrin 05/21/23: * continue with current treatment plan (9) Hypothyroidism: Code(s): E03.9 - Hypothyroidism, unspecified Status: Chronic Assessment and Plan: 05/20/23: * continue Synthroid 05/21/23: * continue with current treatment plan Time Spent With Patient Time with patient: 15 - 25 minutes Subjective Date/time seen: 05/23/23 10:49 Interval history: 05/20/23: This is a 67-year-old female with a significant past medical history smoking, bipolar disorder, extra peridium movement disorder, dystonia, gait instability, hypertension, hypothyroidism, dyslipidemia, bilateral proximal carotid occlusion with distal revascularization? who presents to the hospital with failure to thrive.? Patient had a recent
--- NOTE | 2023-05-23 10:49 | PM.IMPN ---
Progress Note: A&P Assessment and Plan (1) Adult failure to thrive: Code(s): R62.7 - Adult failure to thrive Status: Acute Assessment and Plan: 05/20/23: patient has had increased weakness, decreased appetite, and unable to care for herself at home. Patient has had recent hospital admission for failure to thrive back in February and was hospitalized from 03/17/2023-04/06/2023. After discharge the patient had home health up until 04/20/2023. Since that time she has worsened over the past 2 weeks after her and back to only using a wheelchair. Daughter is requesting placement in a retirement at this time as she is unable to care for her now that her physical needs have increased. PT and OT ordered care coordination consulted for retirement placement 05/21/23: Continue with PT and OT 05/22/2023: continue PT and OT will discuss case with Case coordination for retirement placement and rehab needs 05/23/2023: continue PT and OT insurance has denied SNF placement, family working on appeal process for SNF, case management following (2) Muscular deconditioning: Code(s): R29.898 - Other symptoms and signs involving the musculoskeletal system Status: Acute Assessment and Plan: see above (3) Generalized weakness: Code(s): R53.1 - Weakness Status: Acute Assessment and Plan: See above (4) Moderate protein-calorie malnutrition: Code(s): E44.0 - Moderate protein-calorie malnutrition Status: Chronic Assessment and Plan: 05/20/23: start a regular diet with Ensure with every meal continue Megace, folic acid, and vitamin supplementation 05/21/23: encourage p.o. intake of and fluid 05/22/2023: no change to current treatment plan (5) Hyperlipidemia: Code(s): E78.5 - Hyperlipidemia, unspecified Status: Chronic Assessment and Plan: 05/20/23: continue atorvastatin and aspirin 05/21/23: continue with current treatment plan (6) Anxiety: Code(s): F41.9 - Anxiety disorder, unspecified Status: Chronic Assessment and Plan: 05/20/23: continue BuSpar 05/21/23: continue with current treatment plan (7) Bipolar disorder: Code(s): F31.9 - Bipolar disorder, unspecified Status: Chronic Assessment and Plan: 05/20/23: continue Divalproex sodium ER and trazodone 05/21/23: continue with current treatment plan (8) Depression: Code(s): F32.9 - Major depressive disorder, single episode, unspecified Status: Chronic Assessment and Plan: 05/20/23: continue Lexapro and Wellbutrin 05/21/23: continue with current treatment plan (9) Hypothyroidism: Code(s): E03.9 - Hypothyroidism, unspecified Status: Chronic Assessment and Plan: 05/20/23: continue Synthroid 05/21/23: continue with current treatment plan Time Spent With Patient Time with patient: 15 - 25 minutes Subjective Date/time seen: 05/23/23 10:49 Interval history: 05/20/23: This is a 67-year-old female with a significant past medical history smoking, bipolar disorder, extra peridium movement disorder, dystonia, gait instability, hypertension, hypothyroidism, dyslipidemia, bilateral proximal carotid occlusion with distal revascularization? who presents to the hospital with failure to thrive.? Patient had a recent hospitalization from 03/17/2023-04/06/2023 for failure to thrive, urinary tract infection, hyponatremia.? After discharge patient was followed by home care until 04/20/2023.? She was also seen in the emergency room on 05/02 4 failure to thrive as well? However she was not admitted this round.? Patient re-presented to the emergency room after EMS was called due to generalized weakness and inability to take care of herself, decreased oral intake of food and fluid, with concerns of dehydration.? Per the daughter report patient gotten w
[2023-05-23 15:56] VITALS: BP 134/54; PULSE 74; RESP 16; TEMP 36.4; O2SAT 94
[2023-05-23] MEDS: DIVALPROEX SODIUM ER 500 MG TAB.24H 1000 MG PO (20:22)
[2023-05-23] MEDS: ESCITALOPRAM OXALATE 10 MG TABLET PO (20:23)
[2023-05-23] MEDS: traZODone HCL 50 MG TABLET 100 MG PO (20:23)
[2023-05-24] VITALS: BP 124/73; PULSE 88; RESP 16; TEMP 36.6; O2SAT 97
--- NOTE | 2023-05-24 05:30 | PC.NURSE ---
Patient was sleeping at the beginning of the shift. She wakens easily when her name is called, but after the assessment, medications are given, the patient is changed, etc she goes right back to sleep. Patient takes her medication in applesauce. She does not want to eat the rest of the applesauce when she is finished with the meds. Patient drank a full glass of water, and was proud of her accomplishment. During the day, patient called to use the commode, but at night, she is sleeping and was incontinent at least three times. Patient rolls easily when being changed. Patient transfers using the Krystyna Stedy. Her vitals were WNL. Patient did not complain of pain at any time.
[2023-05-24 06:24] LABS: Alanine Aminotransferase 47 U/L (14-59); Albumin Level 1.7 g/dL (3.4-5.0); Alkaline Phosphatase 79 U/L (46-116); Anion Gap 3 mmol/L (4-12); Aspartate Amino Transferase 48 U/L (15-37); Bilirubin,Total 0.2 mg/dL (0.00-1.00); Blood Urea Nitrogen 8 mg/dL (7-18); Calcium 9.1 mg/dL (8.5-10.1); Carbon Dioxide 31 mmol/L (21-32); Chloride 103 mmol/L (98-108); Estimated CRCL calculation 72 ml/min; Estimated Glomerular Filt Rate > 60; Glucose 90 mg/dL (70-99); Osmolality Calculated 282 mOsm/kg (285-295); Potassium 4.7 mmol/L (3.5-5.1); Sodium 137 mmol/L (136-145); Total Protein 5.2 g/dL (6.4-8.2)
[2023-05-24] MEDS: LEVOTHYROXINE SODIUM 75 MCG TABLET PO (06:42)
[2023-05-24] MEDS: CYANOCOBALAMIN 500 MCG TABLET 2500 MCG PO (08:03)
[2023-05-24] MEDS: POTASSIUM CHLORIDE 20 MEQ ER TABLET 40 MEQ PO (08:03)
[2023-05-24] MEDS: ASPIRIN 81 MG ENTERIC TABLET PO (08:04)
[2023-05-24] MEDS: DIVALPROEX SODIUM ER 500 MG TAB.24H PO (08:04)
[2023-05-24] MEDS: ATORVASTATIN 40 MG TABLET 80 MG PO (08:04)
[2023-05-24] MEDS: busPIRone HCL 5 MG TABLET 10 MG PO ×2 (08:04→20:36)
[2023-05-24] MEDS: buPROPion HCL XL (24 HR) 150 MG TABCR PO (08:04)
[2023-05-24] MEDS: SODIUM CHLORIDE 500 MG TABLET 1500 MG PO ×2 (08:14→16:58)
[2023-05-24] MEDS: MONTELUKAST SODIUM 5 MG TABLET PO (08:14)
[2023-05-24] MEDS: GABAPENTIN 100 MG CAPSULE PO ×3 (08:15→16:58)
[2023-05-24] MEDS: MEGESTROL ACETATE (*CHEMO) 40 MG TABLET PO ×4 (08:15→20:36)
[2023-05-24] MEDS: ENOXAPARIN 40 MG/0.4 ML SYRINGE SUB-Q (08:15)
[2023-05-24] MEDS: FOLIC ACID 0.4 MG TABLET 0.8 MG PO (08:15)
[2023-05-24 08:30] VITALS: BP 111/74; PULSE 85; RESP 18; TEMP 36.1; O2SAT 94
[2023-05-24] MEDS: ACETAMINOPHEN 325 MG TABLET 650 MG PO (09:29)
--- NOTE | 2023-05-24 10:20 | WPDPN ---
Progress Note: A&P Assessment and Plan (1) Adult failure to thrive: Code(s): R62.7 - Adult failure to thrive Status: Acute Assessment and Plan: - eNCOURAGE PATIENT TO EAT AND ENCOURAGE TO PARTICAPTE -PLACEMENT NEEDS TO BE FOUND (2) Moderate protein-calorie malnutrition: Code(s): E44.0 - Moderate protein-calorie malnutrition Status: Chronic Assessment and Plan: -CONTINUE TO MONITOR INTAKE AND OUTPAT (3) Recurrent UTI: Code(s): N39.0 - Urinary tract infection, site not specified Status: Acute Assessment and Plan: - CONTINUE ORAL ANTIBIOTICS -ENCOURAGE FLUIDS. (4) Hypertension: Code(s): I10 - Essential (primary) hypertension Status: Acute Assessment and Plan: -MONITOR VITALS -STABLE (5) Hypothyroidism: Code(s): E03.9 - Hypothyroidism, unspecified Status: Chronic Assessment and Plan: - STABLE (6) Hyperlipidemia: Code(s): E78.5 - Hyperlipidemia, unspecified Status: Chronic Assessment and Plan: - STABLE Subjective Date/time seen: 05/24/23 10:20 Interval history: pATIENT IN RECLINER CHAIR AND STATING SHE IS FINE BUT SHE DOES NOT WANT TO DO ANYTHING. PATIENT ONLY WANTS TO SIT IN HER CHAIR OR IN THE BED. PATIENT DENIES ANY PAIN AND PHSYICAL THERAPY IS HERE TO SEE PATIENT AT THIS TIME PLAN IS FOR POSSIBLE ALF POSSIBLE DISCHARGE TOMORROW IF PLACEMENT IS FOUND Exam Narrative: General: In no acute distress,malnourished, weak appearing Head: atraumatic, no encephalopathy Eyes: EOMI, PERRLA, sclera injected ENT: moist mucous membranes, nasal passages clear Neck: supple, no JVD, no adenopathy, trachea midline Cardiac: Normal S1 and S2. RRR, No murmur, gallops or friction rubs, peripheral pulses intact. Respiratory: Lungs clear to auscultation, no adventitious lung sounds, currently on room air Gastrointestinal: soft, non-distended, non-tender, normoactive bowel sounds. : voiding without difficulty. Extremities: muscle wasting, weakness BUE, BLE Skin: clean, dry, intact. No wounds or lesions. Neuro: Alert to voice, cranial nerves intact, no neuro deficits. Psych: interactive Objective Data Vital Signs Vital Signs: Vital Signs - 24 hr 05/23/23 15:56 05/24/23 00:00 05/24/23 08:30 Temperature 97.5 F L 97.9 F 97 F L Pulse Rate 74 88 85 Respiratory Rate 16 16 18 Blood Pressure 134/54 L 124/73 111/74 Pulse Oximetry 94 97 94 Oxygen Delivery Room Air Room Air Room Air Intake/Output Intake/Output: Intake & Output 05/21/23 05/22/23 05/23/23 05/24/23 23:59 23:59 23:59 23:59 Intake Total 1325 0801 633 8085 Output Total 200 50 25 Balance 1125 404 525 0872 Meds/Results Medications: Active Medications Generic Name Dose Route Start Last Admin Trade Name Freq PRN Reason Stop Dose Admin Acetaminophen 650 mg 05/20/23 01:56 05/24/23 09:29 Acetaminophen 325 Mg Tablet PO 650 mg Q4H PRN Administration Mild Pain (1-3) or Fever Aspirin 81 mg 05/20/23 09:00 05/24/23 08:04 Aspirin 81 Mg Enteric Tablet PO 81 mg QAM MINH Administration Atorvastatin Calcium 80 mg 05/20/23 09:00 05/24/23 08:04 Atorvastatin 40 Mg Tablet PO 80 mg DAILY MINH Administration Bisacodyl 5 mg 05/20/23 01:56 Bisacodyl 5 Mg Tablet Ec PO DAILY PRN Constipation Bupropion HCl 150 mg 05/20/23 09:00 05/24/23 08:04 Bupropion Hcl Xl (24 Hr) 150 Mg Tabcr PO 150 mg DAILY MINH Administration Buspirone HCl 10 mg 05/20/23 09:00 05/24/23 08:04 Buspirone Hcl 5 Mg Tablet PO 10 mg Q12HR MINH Administration Cyanocobalamin 2,500 mcg 05/20/23 09:00 05/24/23 08:03 Cyanocobalamin 500 Mcg Tablet PO 2,500 mcg QAM MINH Administration Divalproex Sodium 500 mg 05/20/23 09:00 05/24/23 08:04 Divalproex Sodium Er 500 Mg Tab.24h PO 500 mg DAILY MINH Administration Divalproex Sodium 1,000 mg 05/20/23 21:00 05/23/23 20:22 Divalproex S
--- NOTE | 2023-05-24 14:23 | PC.NURSE ---
Spoke with Chapito (son in law) and advised that we had sent her chart off for appeal for long term at the retirement, this is not a guarantee that insurance will accept or over turn the denial, he was thankful that this was done, attempted to explain process for if appeal is denied and voiced understanding somewhat of what would be options, home with home care and or private pay retirement
[2023-05-24] MEDS: BISACODYL 5 MG TABLET EC PO (14:27)
[2023-05-24 15:50] VITALS: BP 96/50; PULSE 84; RESP 18; TEMP 36.3; O2SAT 96
[2023-05-24] MEDS: ESCITALOPRAM OXALATE 10 MG TABLET PO (20:36)
[2023-05-24] MEDS: traZODone HCL 50 MG TABLET 100 MG PO (20:36)
[2023-05-24] MEDS: DIVALPROEX SODIUM ER 500 MG TAB.24H 1000 MG PO (20:36)
[2023-05-24 23:20] VITALS: BP 128/77; PULSE 90; RESP 19; TEMP 36.6; O2SAT 97
[2023-05-25 05:34] LABS: Hematocrit 34.6 % (35.0-42.0); Mean Corpuscular HGB Conc 31.8 g/dL (32-36); Mean Corpuscular Hemoglobin 31.5 pg (27.0-31.0); Mean Corpuscular Volume 99.1 fL (78.0-102.0); Mean Platelet Volume 9.6 fl (9.2-11.8); Platelet Count Result 280 K/mm3 (150-420); Red Blood Count 3.49 M/mm3 (4.20-5.40); Red Cell Distribution Width 16.3 % (11.6-14.4); White Blood Count 10.9 K/mm3 (4.8-10.8)
[2023-05-25 05:42] LABS: Anion Gap 3 mmol/L (4-12); Blood Urea Nitrogen 10 mg/dL (7-18); Calcium 8.9 mg/dL (8.5-10.1); Carbon Dioxide 33 mmol/L (21-32); Chloride 100 mmol/L (98-108); Estimated CRCL calculation 66 ml/min; Estimated Glomerular Filt Rate > 60; Glucose 85 mg/dL (70-99); Osmolality Calculated 280 mOsm/kg (285-295); Potassium 4.8 mmol/L (3.5-5.1); Sodium 136 mmol/L (136-145)
[2023-05-25] MEDS: LEVOTHYROXINE SODIUM 75 MCG TABLET PO (06:28)
[2023-05-25 07:35] VITALS: BP 95/79; PULSE 78; RESP 16; TEMP 36.4; O2SAT 95
[2023-05-25 08:30] VITALS: PULSE 78; RESP 16; O2SAT 95
--- NOTE | 2023-05-25 09:18 | P.PNIM_ITS ---
Progress Note: A&P Assessment and Plan (1) Adult failure to thrive: Code(s): R62.7 - Adult failure to thrive Status: Acute Assessment and Plan: 05/20/23: * patient has had increased weakness, decreased appetite, and unable to care for herself at home. * Patient has had recent hospital admission for failure to thrive back in February and was hospitalized from 03/17/2023-04/06/2023. After discharge the patient had home health up until 04/20/2023. Since that time she has worsened over the past 2 weeks after her and back to only using a wheelchair. Daughter is requesting placement in a half-way at this time as she is unable to care for her now that her physical needs have increased. * PT and OT ordered * care coordination consulted for half-way placement 05/21/23: * Continue with PT and OT 05/22/2023: * continue PT and OT * will discuss case with Case coordination for half-way placement and rehab needs 05/23/2023: * continue PT and OT * insurance has denied SNF placement, family working on appeal process for SNF, case management following 05/24/2023: * - eNCOURAGE PATIENT TO EAT AND ENCOURAGE TO PARTICAPTE * -PLACEMENT NEEDS TO BE FOUND 05/25/2023: * no change to current treatment plan (2) Muscular deconditioning: Code(s): R29.898 - Other symptoms and signs involving the musculoskeletal system Status: Acute Assessment and Plan: * see above (3) Generalized weakness: Code(s): R53.1 - Weakness Status: Acute Assessment and Plan: * See above (4) Moderate protein-calorie malnutrition: Code(s): E44.0 - Moderate protein-calorie malnutrition Status: Chronic Assessment and Plan: 05/20/23: * start a regular diet with Ensure with every meal * continue Megace, folic acid, and vitamin supplementation 05/21/23: * encourage p.o. intake of and fluid 05/22/2023: * no change to current treatment plan (5) Hyperlipidemia: Code(s): E78.5 - Hyperlipidemia, unspecified Status: Chronic Assessment and Plan: 05/20/23: * continue atorvastatin and aspirin 05/21/23: * continue with current treatment plan (6) Anxiety: Code(s): F41.9 - Anxiety disorder, unspecified Status: Chronic Assessment and Plan: 05/20/23: * continue BuSpar 05/21/23: * continue with current treatment plan (7) Bipolar disorder: Code(s): F31.9 - Bipolar disorder, unspecified Status: Chronic Assessment and Plan: 05/20/23: * continue Divalproex sodium ER and trazodone 05/21/23: * continue with current treatment plan (8) Depression: Code(s): F32.9 - Major depressive disorder, single episode, unspecified Status: Chronic Assessment and Plan: 05/20/23: * continue Lexapro and Wellbutrin 05/21/23: * continue with current treatment plan (9) Hypothyroidism: Code(s): E03.9 - Hypothyroidism, unspecified Status: Chronic Assessment and Plan: 05/20/23: * continue Synthroid 05/21/23: * continue with current treatment plan Time Spent With Patient Time with patient: 15 - 25 minutes Subjective Date/time seen: 05/25/23 09:18 Interval history: 05/20/23: This is a 67-year-old female with a significant past medical history smoking, bipolar disorder, extra peridium movement disorder, dystonia, gait instability,
--- NOTE | 2023-05-25 09:18 | PM.IMPN ---
Progress Note: A&P Assessment and Plan (1) Adult failure to thrive: Code(s): R62.7 - Adult failure to thrive Status: Acute Assessment and Plan: 05/20/23: patient has had increased weakness, decreased appetite, and unable to care for herself at home. Patient has had recent hospital admission for failure to thrive back in February and was hospitalized from 03/17/2023-04/06/2023. After discharge the patient had home health up until 04/20/2023. Since that time she has worsened over the past 2 weeks after her and back to only using a wheelchair. Daughter is requesting placement in a longterm at this time as she is unable to care for her now that her physical needs have increased. PT and OT ordered care coordination consulted for longterm placement 05/21/23: Continue with PT and OT 05/22/2023: continue PT and OT will discuss case with Case coordination for longterm placement and rehab needs 05/23/2023: continue PT and OT insurance has denied SNF placement, family working on appeal process for SNF, case management following 05/24/2023: - eNCOURAGE PATIENT TO EAT AND ENCOURAGE TO PARTICAPTE -PLACEMENT NEEDS TO BE FOUND 05/25/2023: no change to current treatment plan (2) Muscular deconditioning: Code(s): R29.898 - Other symptoms and signs involving the musculoskeletal system Status: Acute Assessment and Plan: see above (3) Generalized weakness: Code(s): R53.1 - Weakness Status: Acute Assessment and Plan: See above (4) Moderate protein-calorie malnutrition: Code(s): E44.0 - Moderate protein-calorie malnutrition Status: Chronic Assessment and Plan: 05/20/23: start a regular diet with Ensure with every meal continue Megace, folic acid, and vitamin supplementation 05/21/23: encourage p.o. intake of and fluid 05/22/2023: no change to current treatment plan (5) Hyperlipidemia: Code(s): E78.5 - Hyperlipidemia, unspecified Status: Chronic Assessment and Plan: 05/20/23: continue atorvastatin and aspirin 05/21/23: continue with current treatment plan (6) Anxiety: Code(s): F41.9 - Anxiety disorder, unspecified Status: Chronic Assessment and Plan: 05/20/23: continue BuSpar 05/21/23: continue with current treatment plan (7) Bipolar disorder: Code(s): F31.9 - Bipolar disorder, unspecified Status: Chronic Assessment and Plan: 05/20/23: continue Divalproex sodium ER and trazodone 05/21/23: continue with current treatment plan (8) Depression: Code(s): F32.9 - Major depressive disorder, single episode, unspecified Status: Chronic Assessment and Plan: 05/20/23: continue Lexapro and Wellbutrin 05/21/23: continue with current treatment plan (9) Hypothyroidism: Code(s): E03.9 - Hypothyroidism, unspecified Status: Chronic Assessment and Plan: 05/20/23: continue Synthroid 05/21/23: continue with current treatment plan Time Spent With Patient Time with patient: 15 - 25 minutes Subjective Date/time seen: 05/25/23 09:18 Interval history: 05/20/23: This is a 67-year-old female with a significant past medical history smoking, bipolar disorder, extra peridium movement disorder, dystonia, gait instability, hypertension, hypothyroidism, dyslipidemia, bilateral proximal carotid occlusion with distal revascularization? who presents to the hospital with failure to thrive.? Patient had a recent hospitalization from 03/17/2023-04/06/2023 for failure to thrive, urinary tract infection, hyponatremia.? After discharge patient was followed by home care until 04/20/2023.? She was also seen in the emergency room on 05/02 4 failure to thrive as well? However she was not admitted this round.? Patient re-presented to the emergency room after EMS was called due to generalized
[2023-05-25] MEDS: POTASSIUM CHLORIDE 20 MEQ ER TABLET 40 MEQ PO (09:39)
[2023-05-25] MEDS: CYANOCOBALAMIN 500 MCG TABLET 2500 MCG PO (09:39)
[2023-05-25] MEDS: SODIUM CHLORIDE 500 MG TABLET 1500 MG PO ×2 (09:39→17:22)
[2023-05-25] MEDS: ENOXAPARIN 40 MG/0.4 ML SYRINGE SUB-Q (09:39)
[2023-05-25] MEDS: DIVALPROEX SODIUM ER 500 MG TAB.24H PO (09:40)
[2023-05-25] MEDS: ATORVASTATIN 40 MG TABLET 80 MG PO (09:40)
[2023-05-25] MEDS: GABAPENTIN 100 MG CAPSULE PO ×3 (09:40→17:22)
[2023-05-25] MEDS: FOLIC ACID 0.4 MG TABLET 0.8 MG PO (09:40)
[2023-05-25] MEDS: buPROPion HCL XL (24 HR) 150 MG TABCR PO (09:40)
[2023-05-25] MEDS: ASPIRIN 81 MG ENTERIC TABLET PO (09:40)
[2023-05-25] MEDS: MEGESTROL ACETATE (*CHEMO) 40 MG TABLET PO ×4 (09:40→20:20)
[2023-05-25] MEDS: busPIRone HCL 5 MG TABLET 10 MG PO ×2 (09:40→20:20)
[2023-05-25] MEDS: MONTELUKAST SODIUM 5 MG TABLET PO (09:41)
[2023-05-25 16:20] VITALS: BP 141/80; PULSE 90; RESP 16; TEMP 36.7; O2SAT 100
[2023-05-25] MEDS: DIVALPROEX SODIUM ER 500 MG TAB.24H 1000 MG PO (20:20)
[2023-05-25] MEDS: ESCITALOPRAM OXALATE 10 MG TABLET PO (20:20)
[2023-05-25] MEDS: traZODone HCL 50 MG TABLET 100 MG PO (20:20)
[2023-05-26] VITALS: BP 142/75; PULSE 84; RESP 14; TEMP 36.4; O2SAT 95
[2023-05-26] MEDS: LEVOTHYROXINE SODIUM 75 MCG TABLET PO (06:45)
[2023-05-26 07:40] VITALS: BP 102/62; PULSE 88; RESP 16; TEMP 36.3; O2SAT 98
[2023-05-26 08:20] VITALS: PULSE 88; RESP 16; O2SAT 98
[2023-05-26] MEDS: ENOXAPARIN 40 MG/0.4 ML SYRINGE SUB-Q (09:45)
[2023-05-26] MEDS: ASPIRIN 81 MG ENTERIC TABLET PO (09:46)
[2023-05-26] MEDS: MEGESTROL ACETATE (*CHEMO) 40 MG TABLET PO ×4 (09:46→20:39)
[2023-05-26] MEDS: buPROPion HCL XL (24 HR) 150 MG TABCR PO (09:46)
[2023-05-26] MEDS: CYANOCOBALAMIN 500 MCG TABLET 2500 MCG PO (09:46)
[2023-05-26] MEDS: FOLIC ACID 0.4 MG TABLET 0.8 MG PO (09:46)
[2023-05-26] MEDS: POTASSIUM CHLORIDE 20 MEQ ER TABLET 40 MEQ PO (09:46)
[2023-05-26] MEDS: GABAPENTIN 100 MG CAPSULE PO ×3 (09:47→16:44)
[2023-05-26] MEDS: MONTELUKAST SODIUM 5 MG TABLET PO (09:47)
[2023-05-26] MEDS: DIVALPROEX SODIUM ER 500 MG TAB.24H PO (09:47)
[2023-05-26] MEDS: busPIRone HCL 5 MG TABLET 10 MG PO ×2 (09:47→20:39)
[2023-05-26] MEDS: ATORVASTATIN 40 MG TABLET 80 MG PO (09:47)
[2023-05-26] MEDS: SODIUM CHLORIDE 500 MG TABLET 1500 MG PO ×2 (09:47→16:43)
[2023-05-26] MEDS: ACETAMINOPHEN 325 MG TABLET 650 MG PO (14:21)
--- NOTE | 2023-05-26 16:24 | P.PNIM_ITS ---
Progress Note: A&P Assessment and Plan (1) Adult failure to thrive: Code(s): R62.7 - Adult failure to thrive Status: Acute Assessment and Plan: 05/20/23: * patient has had increased weakness, decreased appetite, and unable to care for herself at home. * Patient has had recent hospital admission for failure to thrive back in February and was hospitalized from 03/17/2023-04/06/2023. After discharge the patient had home health up until 04/20/2023. Since that time she has worsened over the past 2 weeks after her and back to only using a wheelchair. Daughter is requesting placement in a senior living at this time as she is unable to care for her now that her physical needs have increased. * PT and OT ordered * care coordination consulted for senior living placement 05/21/23: * Continue with PT and OT 05/22/2023: * continue PT and OT * will discuss case with Case coordination for senior living placement and rehab needs 05/23/2023: * continue PT and OT * insurance has denied SNF placement, family working on appeal process for SNF, case management following 05/24/2023: * - eNCOURAGE PATIENT TO EAT AND ENCOURAGE TO PARTICAPTE * -PLACEMENT NEEDS TO BE FOUND 05/25/2023: * no change to current treatment plan (2) Muscular deconditioning: Code(s): R29.898 - Other symptoms and signs involving the musculoskeletal system Status: Acute Assessment and Plan: * see above (3) Generalized weakness: Code(s): R53.1 - Weakness Status: Acute Assessment and Plan: * See above (4) Moderate protein-calorie malnutrition: Code(s): E44.0 - Moderate protein-calorie malnutrition Status: Chronic Assessment and Plan: 05/20/23: * start a regular diet with Ensure with every meal * continue Megace, folic acid, and vitamin supplementation 05/21/23: * encourage p.o. intake of and fluid 05/22/2023: * no change to current treatment plan (5) Hyperlipidemia: Code(s): E78.5 - Hyperlipidemia, unspecified Status: Chronic Assessment and Plan: 05/20/23: * continue atorvastatin and aspirin 05/21/23: * continue with current treatment plan (6) Anxiety: Code(s): F41.9 - Anxiety disorder, unspecified Status: Chronic Assessment and Plan: 05/20/23: * continue BuSpar 05/21/23: * continue with current treatment plan (7) Bipolar disorder: Code(s): F31.9 - Bipolar disorder, unspecified Status: Chronic Assessment and Plan: 05/20/23: * continue Divalproex sodium ER and trazodone 05/21/23: * continue with current treatment plan (8) Depression: Code(s): F32.9 - Major depressive disorder, single episode, unspecified Status: Chronic Assessment and Plan: 05/20/23: * continue Lexapro and Wellbutrin 05/21/23: * continue with current treatment plan (9) Hypothyroidism: Code(s): E03.9 - Hypothyroidism, unspecified Status: Chronic Assessment and Plan: 05/20/23: * continue Synthroid 05/21/23: * continue with current treatment plan Time Spent With Patient Time with patient: less than 15 minutes Subjective Date/time seen: 05/26/23 16:24 Interval history: 05/20/23: This is a 67-year-old female with a significant past medical history smoking, bipolar disorder, extra peridium movement disorder, dystonia, gait instabil
--- NOTE | 2023-05-26 16:24 | PM.IMPN ---
Progress Note: A&P Assessment and Plan (1) Adult failure to thrive: Code(s): R62.7 - Adult failure to thrive Status: Acute Assessment and Plan: 05/20/23: patient has had increased weakness, decreased appetite, and unable to care for herself at home. Patient has had recent hospital admission for failure to thrive back in February and was hospitalized from 03/17/2023-04/06/2023. After discharge the patient had home health up until 04/20/2023. Since that time she has worsened over the past 2 weeks after her and back to only using a wheelchair. Daughter is requesting placement in a [facility] at this time as she is unable to care for her now that her physical needs have increased. PT and OT ordered care coordination consulted for [facility] placement 05/21/23: Continue with PT and OT 05/22/2023: continue PT and OT will discuss case with Case coordination for [facility] placement and rehab needs 05/23/2023: continue PT and OT insurance has denied SNF placement, family working on appeal process for SNF, case management following 05/24/2023: - eNCOURAGE PATIENT TO EAT AND ENCOURAGE TO PARTICAPTE -PLACEMENT NEEDS TO BE FOUND 05/25/2023: no change to current treatment plan (2) Muscular deconditioning: Code(s): R29.898 - Other symptoms and signs involving the musculoskeletal system Status: Acute Assessment and Plan: see above (3) Generalized weakness: Code(s): R53.1 - Weakness Status: Acute Assessment and Plan: See above (4) Moderate protein-calorie malnutrition: Code(s): E44.0 - Moderate protein-calorie malnutrition Status: Chronic Assessment and Plan: 05/20/23: start a regular diet with Ensure with every meal continue Megace, folic acid, and vitamin supplementation 05/21/23: encourage p.o. intake of and fluid 05/22/2023: no change to current treatment plan (5) Hyperlipidemia: Code(s): E78.5 - Hyperlipidemia, unspecified Status: Chronic Assessment and Plan: 05/20/23: continue atorvastatin and aspirin 05/21/23: continue with current treatment plan (6) Anxiety: Code(s): F41.9 - Anxiety disorder, unspecified Status: Chronic Assessment and Plan: 05/20/23: continue BuSpar 05/21/23: continue with current treatment plan (7) Bipolar disorder: Code(s): F31.9 - Bipolar disorder, unspecified Status: Chronic Assessment and Plan: 05/20/23: continue Divalproex sodium ER and trazodone 05/21/23: continue with current treatment plan (8) Depression: Code(s): F32.9 - Major depressive disorder, single episode, unspecified Status: Chronic Assessment and Plan: 05/20/23: continue Lexapro and Wellbutrin 05/21/23: continue with current treatment plan (9) Hypothyroidism: Code(s): E03.9 - Hypothyroidism, unspecified Status: Chronic Assessment and Plan: 05/20/23: continue Synthroid 05/21/23: continue with current treatment plan Time Spent With Patient Time with patient: less than 15 minutes Subjective Date/time seen: 05/26/23 16:24 Interval history: 05/20/23: This is a 67-year-old female with a significant past medical history smoking, bipolar disorder, extra peridium movement disorder, dystonia, gait instability, hypertension, hypothyroidism, dyslipidemia, bilateral proximal carotid occlusion with distal revascularization? who presents to the hospital with failure to thrive.? Patient had a recent hospitalization from 03/17/2023-04/06/2023 for failure to thrive, urinary tract infection, hyponatremia.? After discharge patient was followed by home care until 04/20/2023.? She was also seen in the emergency room on 05/02 4 failure to thrive as well? However she was not admitted this round.? Patient re-presented to the emergency room after EMS was called due to general
[2023-05-26 16:35] VITALS: BP 107/89; PULSE 79; RESP 16; TEMP 36.3; O2SAT 96
[2023-05-26] MEDS: DIVALPROEX SODIUM ER 500 MG TAB.24H 1000 MG PO (20:39)
[2023-05-26] MEDS: traZODone HCL 50 MG TABLET 100 MG PO (20:39)
[2023-05-26] MEDS: ESCITALOPRAM OXALATE 10 MG TABLET PO (20:39)
[2023-05-27] VITALS: BP 148/92; PULSE 96; RESP 16; TEMP 36.9; O2SAT 91
[2023-05-27] MEDS: LEVOTHYROXINE SODIUM 75 MCG TABLET PO (06:38)
--- NOTE | 2023-05-27 07:54 | PM.IMPN ---
Progress Note: A&P Assessment and Plan (1) Adult failure to thrive: Code(s): R62.7 - Adult failure to thrive Status: Acute Assessment and Plan: - eNCOURAGE PATIENT TO EAT AND ENCOURAGE TO PARTICAPTE -PLACEMENT NEEDS TO BE FOUND - Still awaiting on placement (2) Moderate protein-calorie malnutrition: Code(s): E44.0 - Moderate protein-calorie malnutrition Status: Chronic Assessment and Plan: -CONTINUE TO MONITOR INTAKE AND OUTPAT (3) Recurrent UTI: Code(s): N39.0 - Urinary tract infection, site not specified Status: Acute Assessment and Plan: - CONTINUE ORAL ANTIBIOTICS -ENCOURAGE FLUIDS. Cr0.54 (4) Hypertension: Code(s): I10 - Essential (primary) hypertension Status: Acute Assessment and Plan: -MONITOR VITALS -STABLE (5) Hypothyroidism: Code(s): E03.9 - Hypothyroidism, unspecified Status: Chronic Assessment and Plan: - STABLE (6) Hyperlipidemia: Code(s): E78.5 - Hyperlipidemia, unspecified Status: Chronic Assessment and Plan: - STABLE Subjective Date/time seen: 05/27/23 07:54 Interval history: Patient in the bed when I examined her she denies any pain or needing anything at this time patient is ready for discharge we are awaiting placement. Patient states she is eating and drinking although she is still eating minimal amount of food. We will plan for discharge once placement is found. Exam Narrative: General: In no acute distress,malnourished, weak appearing Head: atraumatic, no encephalopathy Eyes: EOMI, PERRLA, sclera injected ENT: moist mucous membranes, nasal passages clear Neck: supple, no JVD, no adenopathy, trachea midline Cardiac: No murmur, gallops or friction rubs, peripheral pulses intact. Respiratory: Lungs clear to auscultation, no adventitious lung sounds, currently on room air Gastrointestinal: soft, non-distended, non-tender, normoactive bowel sounds. : voiding without difficulty. Extremities: muscle wasting, weakness BUE, BLE Skin: clean, dry, intact. No wounds or lesions. Neuro: Alert to voice, cranial nerves intact, no neuro deficits. Psych: interactive Objective Data Vital Signs Vital Signs: Vital Signs - 24 hr 05/26/23 08:20 05/26/23 16:35 05/27/23 00:00 Temperature 97.4 F L 98.5 F Pulse Rate 88 79 96 Respiratory Rate 16 16 16 Blood Pressure 107/89 148/92 H Pulse Oximetry 98 96 91 Oxygen Delivery Room Air Room Air Room Air Intake/Output Intake/Output: Intake & Output 05/24/23 05/25/23 05/26/23 05/27/23 23:59 23:59 23:59 23:59 Intake Total 2783 1770 1965 100 Output Total 100 Balance 2683 1770 1965 100 Meds/Results Medications: Active Medications Generic Name Dose Route Start Last Admin Trade Name Freq PRN Reason Stop Dose Admin Acetaminophen 650 mg 05/20/23 01:56 05/26/23 14:21 Acetaminophen 325 Mg Tablet PO 650 mg Q4H PRN Administration Mild Pain (1-3) or Fever Aspirin 81 mg 05/20/23 09:00 05/26/23 09:46 Aspirin 81 Mg Enteric Tablet PO 81 mg QAM MINH Administration Atorvastatin Calcium 80 mg 05/20/23 09:00 05/26/23 09:47 Atorvastatin 40 Mg Tablet PO 80 mg DAILY MINH Administration Bisacodyl 5 mg 05/20/23 01:56 05/24/23 14:27 Bisacodyl 5 Mg Tablet Ec PO 5 mg DAILY PRN Administration Constipation Bisacodyl 10 mg 05/24/23 14:12 Bisacodyl 10 Mg Suppository RECTAL QAM PRN Constipation Bupropion HCl 150 mg 05/20/23 09:00 05/26/23 09:46 Bupropion Hcl Xl (24 Hr) 150 Mg Tabcr PO 150 mg DAILY MINH Administration Buspirone HCl 10 mg 05/20/23 09:00 05/26/23 20:39 Buspirone Hcl 5 Mg Tablet PO 10 mg Q12HR MINH Administration Cyanocobalamin 2,500 mcg 05/20/23 09:00 05/26/23 09:46 Cyanocobalamin 500 Mcg Tablet PO 2,500 mcg QAM MINH Administration Divalproex Sodium 500 mg 05/20/23 09:00 05/26/23 09:47 Divalproex Sodium Er
[2023-05-27 08:00] VITALS: BP 122/74; PULSE 78; RESP 18; TEMP 36.1; O2SAT 96
[2023-05-27] MEDS: SODIUM CHLORIDE 500 MG TABLET 1500 MG PO ×2 (08:37→16:51)
[2023-05-27] MEDS: ENOXAPARIN 40 MG/0.4 ML SYRINGE SUB-Q (08:37)
[2023-05-27] MEDS: CYANOCOBALAMIN 500 MCG TABLET 2500 MCG PO (08:37)
[2023-05-27] MEDS: POTASSIUM CHLORIDE 20 MEQ ER TABLET 40 MEQ PO (08:38)
[2023-05-27] MEDS: DIVALPROEX SODIUM ER 500 MG TAB.24H PO (08:38)
[2023-05-27] MEDS: MEGESTROL ACETATE (*CHEMO) 40 MG TABLET PO ×4 (08:38→20:28)
[2023-05-27] MEDS: MONTELUKAST SODIUM 5 MG TABLET PO (08:38)
[2023-05-27] MEDS: FOLIC ACID 0.4 MG TABLET 0.8 MG PO (08:38)
[2023-05-27] MEDS: ASPIRIN 81 MG ENTERIC TABLET PO (08:39)
[2023-05-27] MEDS: busPIRone HCL 5 MG TABLET 10 MG PO ×2 (08:39→20:27)
[2023-05-27] MEDS: ATORVASTATIN 40 MG TABLET 80 MG PO (08:39)
[2023-05-27] MEDS: buPROPion HCL XL (24 HR) 150 MG TABCR PO (08:39)
[2023-05-27] MEDS: GABAPENTIN 100 MG CAPSULE PO ×3 (09:40→16:52)
[2023-05-27 16:00] VITALS: BP 124/74; PULSE 76; RESP 16; TEMP 36.1; O2SAT 95
[2023-05-27] MEDS: traZODone HCL 50 MG TABLET 100 MG PO (20:27)
[2023-05-27] MEDS: DIVALPROEX SODIUM ER 500 MG TAB.24H 1000 MG PO (20:27)
[2023-05-27] MEDS: ESCITALOPRAM OXALATE 10 MG TABLET PO (20:28)
[2023-05-28] VITALS (29 sets, daily range): BP systolic 80–119; BP diastolic 52–78; PULSE 92–115; RESP 18–38; TEMP 36.6–38.3; O2SAT 85–97
[2023-05-28] MEDS: ACETAMINOPHEN 325 MG TABLET 650 MG PO (00:35)
[2023-05-28] MEDS: IPRATROPIUM 0.5 MG/ALBUTEROL SULFATE 2.5 MG AMPUL.NEB 3 ML INHALATION ×2 (01:30→08:57)
--- NOTE | 2023-05-28 01:38 | PC.NURSE ---
chest xray completed as ordered.
--- NOTE | 2023-05-28 02:30 | PC.NURSE ---
labs drawn at this time
[2023-05-28 02:43] LABS: Base Excess ABG 1.2 mmol/L (0-2); HCO3 ABG 25.9 mmol/L (23-29); Oxygen Content ABG 14.4 %vol (16.0-22.0); Oxygen Saturation ABG 93.2 % (95-97); Oxyhemoglobin 92.5 % (94-100); PCO2 ABG 41.2 mmHg (35-45); PO2 ABG 72.6 mmHg (75-85); pH ABG 7.42 (7.35-7.45)
--- NOTE | 2023-05-28 02:45 | PC.NURSE ---
urine specimen sent to lab, noted to be yellow , cloudy
[2023-05-28 02:52] LABS: Device SIMPLE MASK; Modified Allen's Test Pass; Site Drawn RIGHT RADIAL
[2023-05-28 02:58] LABS: Hemoglobin 10.2 g/dL (11.7-13.8); Mean Corpuscular HGB Conc 31.9 g/dL (32-36); Mean Corpuscular Hemoglobin 31.6 pg (27.0-31.0); Mean Corpuscular Volume 99.1 fL (78.0-102.0); Mean Platelet Volume 9.7 fl (9.2-11.8); Platelet Count Result 287 K/mm3 (150-420); Red Blood Count 3.23 M/mm3 (4.20-5.40); Red Cell Distribution Width 16.9 % (11.6-14.4)
[2023-05-28 03:02] LABS: White Blood Count 24.9 K/mm3 (4.8-10.8)
[2023-05-28 03:06] LABS: Bilirubin Urine Negative (Negative); Blood Urine 1+ (Negative); Color Urine Light Yellow (Yellow); Glucose Urine UA Negative (Negative); Ketones Urine Negative (Negative); Leukocyte Esterase Ur 2+ LEU/UL (Negative); Nitrate Urine Negative (Negative); Protein Urine 1+ (Negative); Specific Grav Ur 1.015 (1.010-1.020); Urobilinogen Urine 0.2 mg/dL (0.2-1.0)
[2023-05-28 03:13] LABS: Anion Gap 3 mmol/L (4-12); Blood Urea Nitrogen 14 mg/dL (7-18); Calcium 9.1 mg/dL (8.5-10.1); Carbon Dioxide 30 mmol/L (21-32); Chloride 101 mmol/L (98-108); Estimated CRCL calculation 49 ml/min; Estimated Glomerular Filt Rate > 60; Glucose 98 mg/dL (70-99); NT Pro B Type Natriuretic Pept 3033 pg/mL (0-125); Osmolality Calculated 278 mOsm/kg (285-295); Potassium 4.8 mmol/L (3.5-5.1); Sodium 134 mmol/L (136-145)
[2023-05-28 03:15] LABS: D Dimer 1.74 mg/L (0.19-0.50)
[2023-05-28 03:16] LABS: Add Urine Microscopic? YES; Appearance Urine Cloudy (Clear)
[2023-05-28 03:18] LABS: Bacteria Urine 4+ /hpf; WBC Clumps Urine Present /hpf; WBC Urine >100 /hpf (0-3)
[2023-05-28] MEDS: SODIUM CHLORIDE 0.9% IV 1,000 ML 75 ML IV CONT ×2 (03:21→17:18)
[2023-05-28 03:27] LABS: Band Neutrophils Percent 0 % (0-6); Lymphocytes Absolute Manual 0.99 K/mm3 (1.1-4.5); Lymphocytes Percent Manual 4 % (18-44); Monocytes Absolute Manual 3.48 K/mm3 (0.1-0.90); Monocytes Percent Manual 14 % (3-9); Neutrophils Absolute Manual 19.17 K/mm3 (1.7-7.2); Neutrophils Percent Manual 77 % (46-73); Platelet Estimate Adequate (Adequate); Total Cells Counted 100
[2023-05-28 03:28] LABS: Schistocytes None Seen
[2023-05-28] MEDS: VANCOMYCIN 1,250 MG/NS 250 ML 1,250 MG/250 ML BAG 166.67 MG IVPB (04:10)
--- NOTE | 2023-05-28 05:06 | PC.NURSE ---
pt to xray for ct chest via bed and xray staff.
--- NOTE | 2023-05-28 05:41 | PC.NURSE ---
pt returned to room from ct. pt more alert. respirations improved. pt answering questions. call adhikari in reach.
[2023-05-28] MEDS: LEVOTHYROXINE SODIUM 75 MCG TABLET PO (06:06)
--- NOTE | 2023-05-28 06:24 | PC.NURSE ---
pt alert, speech is clear and able to answer questions appropriately,
--- NOTE | 2023-05-28 08:25 | PM.IMPN ---
Progress Note: A&P Assessment and Plan (1) Adult failure to thrive: Code(s): R62.7 - Adult failure to thrive Status: Acute Assessment and Plan: - eNCOURAGE PATIENT TO EAT AND ENCOURAGE TO PARTICAPTE -PLACEMENT NEEDS TO BE FOUND - Still awaiting on placement (2) Moderate protein-calorie malnutrition: Code(s): E44.0 - Moderate protein-calorie malnutrition Status: Chronic Assessment and Plan: -CONTINUE TO MONITOR INTAKE AND OUTPAT (3) Recurrent UTI: Code(s): N39.0 - Urinary tract infection, site not specified Status: Acute Assessment and Plan: - CONTINUE ORAL ANTIBIOTICS -ENCOURAGE FLUIDS. Cr0.54 Villagomez catheter placed urine positive and cultures sent off Vanc and Zosyn started patient more than likely Uroseptic (4) Hypertension: Code(s): I10 - Essential (primary) hypertension Status: Acute Assessment and Plan: -MONITOR VITALS -STABLE Hold any bp medication (5) Hypothyroidism: Code(s): E03.9 - Hypothyroidism, unspecified Status: Chronic Assessment and Plan: - STABLE (6) Hyperlipidemia: Code(s): E78.5 - Hyperlipidemia, unspecified Status: Chronic Assessment and Plan: - STABLE (7) CHF (congestive heart failure): Code(s): I50.9 - Heart failure, unspecified Status: Acute Assessment and Plan: BNP 3030 gently hydrate due to hypotension and urinary tract infection Hold lasix for now until blood pressure comes up VAN and Zosyn medication administered. Subjective Date/time seen: 05/28/23 08:25 Interval history: Received several phone call last night from the hospital. Patient was having shortness of breath and requiring a lot of oxygen Patient had several test performed patient WBC was elevated to 24 urine looks infected DD elevated CTA is negative. Patient has been started on Vancomycin and Zosyn, IVF started she is hypotensive IVF started . Patient is having some retention villagomez catheter in place urine yellow with a lot of sediment noted urine cultures has been sent out. Patient is a DNR and I did discuss with family and informed them she is at increased risk of she is currently at 2l NC saturation is 98% when I was in the room patient is very pale. Called patient family left a message for them to call back . Awaiting a return phone call to give them a update on Mother condition . Exam Narrative: General: In no acute distress,malnourished, weak appearing, Pale Head: atraumatic, no encephalopathy Eyes: EOMI, PERRLA, sclera injected ENT: moist mucous membranes, nasal passages clear Neck: supple, no JVD, no adenopathy, trachea midline Cardiac: No murmur, gallops or friction rubs, peripheral pulses intact. Respiratory: Lungs clear to diminished auscultation, no adventitious lung sounds, currently on room air Gastrointestinal: soft, non-distended, non-tender, normoactive bowel sounds. : voiding without difficulty. Foul smelling urinary retention noted. Extremities: muscle wasting, weakness BUE, BLE Skin: clean, dry, intact. No wounds or lesions. Neuro: Alert to voice, cranial nerves intact, no neuro deficits. Psych: interactive Objective Data Vital Signs Vital Signs: Vital Signs - 24 hr 05/27/23 16:00 05/28/23 00:35 05/28/23 00:00 Temperature 97 F L 100.9 F H 100.9 F H Pulse Rate 76 113 H Respiratory Rate 16 38 H Blood Pressure 124/74 97/56 L Pulse Oximetry 95 86 L Oxygen Delivery Room Air Room Air Oxygen Flow Rate 05/28/23 00:20 05/28/23 00:52 05/28/23 00:05 Temperature 99.1 F Pulse Rate 115 H 109 H Respiratory Rate 34 H 32 H Blood Pressure 83/52 L Pulse Oximetry 91 91 88 L Oxygen Delivery Simple Face Mask Simple Face Mask Nasal Cannula Oxygen Flow Rate 6 6 3 05/28/23 01:27 05/28/23 01:34 05/28/23 01:18 Temperature 99.1 F Pulse Rate 110 H 113 H Respiratory Rate 32 H 38 H Blood Pressure 109/65 Pulse Oximetry
[2023-05-28] MEDS: SODIUM CHLORIDE 500 MG TABLET 1500 MG PO ×2 (08:57→17:12)
[2023-05-28] MEDS: DIVALPROEX SODIUM ER 500 MG TAB.24H PO (08:57)
[2023-05-28] MEDS: CYANOCOBALAMIN 500 MCG TABLET 2500 MCG PO (08:57)
[2023-05-28] MEDS: ENOXAPARIN 40 MG/0.4 ML SYRINGE SUB-Q (08:57)
[2023-05-28] MEDS: buPROPion HCL XL (24 HR) 150 MG TABCR PO (08:58)
[2023-05-28] MEDS: busPIRone HCL 5 MG TABLET 10 MG PO ×2 (08:58→20:34)
[2023-05-28] MEDS: FOLIC ACID 0.4 MG TABLET 0.8 MG PO (08:58)
[2023-05-28] MEDS: POTASSIUM CHLORIDE 20 MEQ ER TABLET 40 MEQ PO (08:58)
[2023-05-28] MEDS: ASPIRIN 81 MG ENTERIC TABLET PO (08:59)
[2023-05-28] MEDS: MONTELUKAST SODIUM 5 MG TABLET PO (08:59)
[2023-05-28] MEDS: GABAPENTIN 100 MG CAPSULE PO ×3 (08:59→17:13)
[2023-05-28] MEDS: ATORVASTATIN 40 MG TABLET 80 MG PO (08:59)
[2023-05-28] MEDS: MEGESTROL ACETATE (*CHEMO) 40 MG TABLET PO ×4 (08:59→20:35)
--- NOTE | 2023-05-28 09:04 | PC.NURSE ---
family called back at this time and talked with shae reyes about change in status
--- NOTE | 2023-05-28 15:16 | PC.NURSE ---
At 1513 patient changed to inpatient.
--- NOTE | 2023-05-28 16:25 | PC.NURSE ---
family in to visit
--- NOTE | 2023-05-28 17:05 | PC.NURSE ---
family here. request her driverlicense and home meds. given to daughter. update given
[2023-05-28] MEDS: traZODone HCL 50 MG TABLET 100 MG PO (20:34)
[2023-05-28] MEDS: DIVALPROEX SODIUM ER 500 MG TAB.24H 1000 MG PO (20:35)
[2023-05-28] MEDS: ESCITALOPRAM OXALATE 10 MG TABLET PO (20:35)
[2023-05-29] VITALS (9 sets, daily range): BP systolic 93–113; BP diastolic 47–79; PULSE 85–104; RESP 20–30; TEMP 36.7–37.6; O2SAT 91–98
[2023-05-29] MEDS: VANCOMYCIN 1,000 MG/NS 250 ML 1,000 MG/250 ML BAG 250 MG IVPB (04:09)
[2023-05-29] MEDS: SODIUM CHLORIDE 0.9% IV 1,000 ML 75 ML IV CONT ×2 (04:16→23:01)
--- NOTE | 2023-05-29 05:53 | PC.NURSE ---
report to becky jiang. all questions answered
[2023-05-29 06:03] LABS: Estimated CRCL calculation 69 ml/min; Estimated Glomerular Filt Rate > 60
[2023-05-29] MEDS: LEVOTHYROXINE SODIUM 75 MCG TABLET PO (06:37)
[2023-05-29] MEDS: ENOXAPARIN 40 MG/0.4 ML SYRINGE SUB-Q (09:02)
[2023-05-29] MEDS: MEGESTROL ACETATE (*CHEMO) 40 MG TABLET PO ×3 (09:03→20:45)
[2023-05-29] MEDS: SODIUM CHLORIDE 500 MG TABLET 1500 MG PO ×2 (09:03→17:49)
[2023-05-29] MEDS: GABAPENTIN 100 MG CAPSULE PO ×2 (09:03→17:49)
[2023-05-29] MEDS: DIVALPROEX SODIUM ER 500 MG TAB.24H PO (09:03)
[2023-05-29] MEDS: POTASSIUM CHLORIDE 20 MEQ ER TABLET 40 MEQ PO (09:03)
[2023-05-29] MEDS: FOLIC ACID 0.4 MG TABLET 0.8 MG PO (09:03)
[2023-05-29 09:04] LABS: Hematocrit 28.5 % (35.0-42.0); Hemoglobin 8.8 g/dL (11.7-13.8); Mean Corpuscular HGB Conc 30.9 g/dL (32-36); Mean Corpuscular Hemoglobin 31.3 pg (27.0-31.0); Mean Corpuscular Volume 101.4 fL (78.0-102.0); Platelet Count Result 248 K/mm3 (150-420); Red Blood Count 2.81 M/mm3 (4.20-5.40)
[2023-05-29] MEDS: CYANOCOBALAMIN 500 MCG TABLET 2500 MCG PO (09:04)
[2023-05-29] MEDS: MONTELUKAST SODIUM 5 MG TABLET PO (09:04)
[2023-05-29] MEDS: ASPIRIN 81 MG ENTERIC TABLET PO (09:04)
[2023-05-29] MEDS: busPIRone HCL 5 MG TABLET 10 MG PO ×2 (09:04→20:45)
[2023-05-29] MEDS: ATORVASTATIN 40 MG TABLET 80 MG PO (09:04)
[2023-05-29] MEDS: buPROPion HCL XL (24 HR) 150 MG TABCR PO (09:04)
[2023-05-29 09:06] LABS: White Blood Count 23.8 K/mm3 (4.8-10.8)
[2023-05-29 09:11] LABS: Alanine Aminotransferase 43 U/L (14-59); Albumin Level 1.2 g/dL (3.4-5.0); Alkaline Phosphatase 74 U/L (46-116); Anion Gap 5 mmol/L (4-12); Aspartate Amino Transferase 30 U/L (15-37); Bilirubin,Total 0.2 mg/dL (0.00-1.00); Blood Urea Nitrogen 13 mg/dL (7-18); Carbon Dioxide 27 mmol/L (21-32); Chloride 105 mmol/L (98-108); Estimated CRCL calculation 69 ml/min; Estimated Glomerular Filt Rate > 60; Glucose 88 mg/dL (70-99); Osmolality Calculated 283 mOsm/kg (285-295); Potassium 4.6 mmol/L (3.5-5.1); Sodium 137 mmol/L (136-145); Total Protein 4.7 g/dL (6.4-8.2)
[2023-05-29 09:14] LABS: Lactic Acid Reflex 1.1 mmol/L (0.4-2.0)
[2023-05-29 09:26] LABS: Band Neutrophils Percent 20 % (0-6); Lymphocytes Absolute Manual 2.14 K/mm3 (1.1-4.5); Lymphocytes Percent Manual 9 % (18-44); Metamyelocytes Percent 1 %; Monocytes Absolute Manual 1.42 K/mm3 (0.1-0.90); Monocytes Percent Manual 6 % (3-9); Neutrophils Absolute Manual 19.99 K/mm3 (1.7-7.2); Neutrophils Percent Manual 64 % (46-73); Platelet Estimate Adequate (Adequate); Total Cells Counted 100
[2023-05-29] MEDS: cefTRIAXone 2 GM/NS 100 ML 2 GM/100 ML BAG IVPB (10:13)
[2023-05-29] MEDS: ALBUMIN HUMAN 25% 25 GM/100 ML 100 ML IVPB ×5 (10:52→23:57)
--- NOTE | 2023-05-29 10:53 | PM.IMPN ---
Progress Note: A&P Assessment and Plan (1) Septic shock: Code(s): A41.9 - Sepsis, unspecified organism; R65.21 - Severe sepsis with septic shock Status: Acute Assessment and Plan: 05/28: Bacteremia with Gram-negative rods of presumed urine source. Patient had previously been on vancomycin, previous documentation mentions Zosyn but this was not on medication list. Stop vancomycin and started Rocephin 2 g Q 24 hours. patient with altered mental status GCS less than 14, tachypnea greater than 22 per minute and systolic blood pressure under 90 on 05/27. This qualifies as a score of 3 on Q sofa. (2) Recurrent UTI: Code(s): N39.0 - Urinary tract infection, site not specified Status: Acute Assessment and Plan: 05/28: Bacteremia with Gram-negative rods of presumed urine source. Patient had previously been on vancomycin, previous documentation mentions Zosyn but this was not on medication list. Stop vancomycin and started Rocephin 2 g Q 24 hours. (3) CHF (congestive heart failure): Code(s): I50.9 - Heart failure, unspecified Status: Acute Assessment and Plan: 05/28: Significant coarse crackles throughout with tachypnea and respiratory distress. Slowed IV fluid rate, added IV albumin and ordered single dose of IV Lasix. (4) Adult failure to thrive: Code(s): R62.7 - Adult failure to thrive Status: Acute Assessment and Plan: Patient critically ill at this time. (5) Moderate protein-calorie malnutrition: Code(s): E44.0 - Moderate protein-calorie malnutrition Status: Chronic Assessment and Plan: Patient critically ill and not receiving any oral intake at this time (6) Hypertension: Code(s): I10 - Essential (primary) hypertension Status: Acute Assessment and Plan: patient critically ill, borderline hypotensive (7) Hypothyroidism: Code(s): E03.9 - Hypothyroidism, unspecified Status: Chronic Assessment and Plan: patient critically ill (8) Hyperlipidemia: Code(s): E78.5 - Hyperlipidemia, unspecified Status: Chronic Assessment and Plan: patient critically ill not taking oral at this time Time Spent With Patient Time: Due to a high probability of clinically significant, life threatening deterioration, the patient required my highest level of preparedness to intervene emergently and I personally spent this critical care time directly and personally managing the patient. This critical care time included obtaining a history; examining the patient; pulse oximetry; ordering and review of studies; arranging urgent treatment with development of a management plan; evaluation of patient's response to treatment; frequent reassessment; and discussions with other providers. It was exclusive of separately billable procedures and treating other patients and teaching time. Please see Assessment and Plan section and the rest of the note for further information on patient assessment and treatment. Critical Care time: 45 minutes Time with patient: Greater than 35 minutes Subjective Date/time seen: 05/29/23 10:53 Interval history: Patient with worsened altered level of consciousness, barely awakens to painful stimuli. Not currently eating or drinking. Was planning on swallow study but patient could awaken enough to participate. White blood cell count remains elevated at 23.8 but today includes 20% bandemia. Blood cultures returned positive for Gram-negative bacilli. This is of presumed urogenic cause and patient's prior urine cultures have been pansensitive E coli except to Unasyn. Initiate Rocephin 2 g IV stat And every 24 hours. Ordered albumin for hypotension. Patient is tachypneic with coarse crackles throughout suspect significant pulmonary edema. Ordered IV Lasix and decreased IV fluid rate to 30 mL/hour. Spoke with patient's daughter today stating that we were attempting to target presumed bacteri
[2023-05-29] MEDS: FUROSEMIDE INJ 40 MG/4 ML VIAL IV PUSH (13:13)
[2023-05-29] MEDS: traZODone HCL 50 MG TABLET 100 MG PO (20:45)
[2023-05-29] MEDS: DIVALPROEX SODIUM ER 500 MG TAB.24H 1000 MG PO (20:45)
[2023-05-29] MEDS: ESCITALOPRAM OXALATE 10 MG TABLET PO (20:45)
[2023-05-30] VITALS: BP 132/50; PULSE 100; RESP 28; TEMP 36.8; O2SAT 98
[2023-05-30 05:30] VITALS: O2SAT 94
[2023-05-30] MEDS: LEVOTHYROXINE SODIUM 75 MCG TABLET PO (06:05)
[2023-05-30] MEDS: ALBUMIN HUMAN 25% 25 GM/100 ML 100 ML IVPB (06:05)
[2023-05-30 07:30] VITALS: BP 130/58; PULSE 92; RESP 20; TEMP 36.2; O2SAT 95
--- NOTE | 2023-05-30 08:15 | WPDPN ---
Progress Note: A&P Assessment and Plan (1) Septic shock: Code(s): A41.9 - Sepsis, unspecified organism; R65.21 - Severe sepsis with septic shock Status: Acute (2) Recurrent UTI: Code(s): N39.0 - Urinary tract infection, site not specified Status: Acute Assessment and Plan: - CONTINUE ORAL ANTIBIOTICS -ENCOURAGE FLUIDS. Cr0.54 Rowe catheter placed urine positive and cultures sent off Vanc and Zosyn started patient more than likely Uroseptic (3) CHF (congestive heart failure): Code(s): I50.9 - Heart failure, unspecified Status: Acute Assessment and Plan: BNP 3030 gently hydrate due to hypotension and urinary tract infection Hold lasix for now until blood pressure comes up VAN and Zosyn medication administered. (4) Adult failure to thrive: Code(s): R62.7 - Adult failure to thrive Status: Acute Assessment and Plan: - eNCOURAGE PATIENT TO EAT AND ENCOURAGE TO PARTICAPTE -PLACEMENT NEEDS TO BE FOUND - Still awaiting on placement (5) Moderate protein-calorie malnutrition: Code(s): E44.0 - Moderate protein-calorie malnutrition Status: Chronic Assessment and Plan: -CONTINUE TO MONITOR INTAKE AND OUTPAT (6) Hypertension: Code(s): I10 - Essential (primary) hypertension Status: Acute Assessment and Plan: -MONITOR VITALS -STABLE Hold any bp medication (7) Hypothyroidism: Code(s): E03.9 - Hypothyroidism, unspecified Status: Chronic Assessment and Plan: - STABLE (8) Hyperlipidemia: Code(s): E78.5 - Hyperlipidemia, unspecified Status: Chronic Assessment and Plan: - STABLE Subjective Date/time seen: 05/30/23 08:15 Interval history: This is a 67 year old female that remains very sick she has remained on IV antibioitic and she has been lethargic at time and not eating. More than likely due to failure to thrive and uti. Patient has given me one word answers and then she seems to doze on me. Rowe has dark yellow urine in tubing. labs are pending and we will continue to treat prior to going to [facility]. I will call and discuss with family expectation for end of life care. Exam Narrative: GENERAL: Critically ill-appearing, altered level of consciousness tachypnea with minor respiratory distress HEAD: Normocephalic, atraumatic. ENT:? Mucous membranes moist. CHEST: tachypnea minor respiratory distress and coarse crackles throughout HEART: borderline tachycardic rate. ? diminished peripheral pulses. ABDOMEN: Soft, nontender, nondistended. Rowe catheter draining very dark urine EXTREMITIES: Normal range of motion. No peripheral edema. SKIN: Warm dry normal color NEURO: arouses to painful stimuli PSYCH: unable to assess Objective Data Vital Signs Vital Signs: Vital Signs - 24 hr 05/29/23 10:25 05/29/23 16:25 05/29/23 16:30 Temperature 99.1 F Pulse Rate 85 Respiratory Rate 24 H Blood Pressure 113/79 100/47 L Pulse Oximetry 92 96 Oxygen Delivery Room Air Nasal Cannula Oxygen Flow Rate 2 05/30/23 00:00 Temperature 98.3 F Pulse Rate 100 Respiratory Rate 28 H Blood Pressure 132/50 L Pulse Oximetry 98 Oxygen Delivery Nasal Cannula Oxygen Flow Rate 2 Intake/Output Intake/Output: Intake & Output 05/27/23 05/28/23 05/29/23 05/30/23 23:59 23:59 23:59 23:59 Intake Total 540 2707 3760 850 Output Total 450 2950 600 Balance 540 2257 810 250 Meds/Results Medications: Active Medications Generic Name Dose Route Start Last Admin Trade Name Freq PRN Reason Stop Dose Admin Acetaminophen 650 mg 05/20/23 01:56 05/28/23 00:35 Acetaminophen 325 Mg Tablet PO 650 mg Q4H PRN Administration Mild Pain (1-3) or Fever Albuterol/Ipratropium 3 ml 05/28/23 01:16 05/28/23 08:57 Ipratropium 0.5 Mg/Albuterol Sulfate 2.5 Mg Ampul.Neb 3 Ml INHALATION 3 ml Q6HRT PRN Administration Shortness Of Breath
[2023-05-30 08:21] LABS: Hematocrit 23.1 % (35.0-42.0); Hemoglobin 7.5 g/dL (11.7-13.8); Mean Corpuscular HGB Conc 32.5 g/dL (32-36); Mean Corpuscular Hemoglobin 31.6 pg (27.0-31.0); Mean Corpuscular Volume 97.5 fL (78.0-102.0); Mean Platelet Volume 9.5 fl (9.2-11.8); Platelet Count Result 182 K/mm3 (150-420); Red Blood Count 2.37 M/mm3 (4.20-5.40); Red Cell Distribution Width 17.5 % (11.6-14.4); White Blood Count 16.2 K/mm3 (4.8-10.8)
[2023-05-30 08:25] VITALS: O2SAT 95
[2023-05-30] MEDS: ENOXAPARIN 40 MG/0.4 ML SYRINGE SUB-Q (08:40)
[2023-05-30 08:41] LABS: Anion Gap 5 mmol/L (4-12); Blood Urea Nitrogen 13 mg/dL (7-18); Calcium 9.6 mg/dL (8.5-10.1); Carbon Dioxide 31 mmol/L (21-32); Chloride 103 mmol/L (98-108); Estimated CRCL calculation 72 ml/min; Estimated Glomerular Filt Rate > 60; Glucose 84 mg/dL (70-99); Osmolality Calculated 287 mOsm/kg (285-295); Potassium 4.1 mmol/L (3.5-5.1); Sodium 139 mmol/L (136-145)
[2023-05-30] MEDS: DIVALPROEX SODIUM ER 500 MG TAB.24H PO (08:41)
[2023-05-30] MEDS: POTASSIUM CHLORIDE 20 MEQ ER TABLET 40 MEQ PO (08:41)
[2023-05-30] MEDS: SODIUM CHLORIDE 500 MG TABLET 1500 MG PO ×2 (08:41→16:56)
[2023-05-30] MEDS: busPIRone HCL 5 MG TABLET 10 MG PO ×2 (08:41→20:44)
[2023-05-30] MEDS: GABAPENTIN 100 MG CAPSULE PO ×3 (08:41→16:56)
[2023-05-30] MEDS: FOLIC ACID 0.4 MG TABLET 0.8 MG PO (08:41)
[2023-05-30] MEDS: MEGESTROL ACETATE (*CHEMO) 40 MG TABLET PO ×4 (08:42→20:44)
[2023-05-30] MEDS: ATORVASTATIN 40 MG TABLET 80 MG PO (08:42)
[2023-05-30] MEDS: buPROPion HCL XL (24 HR) 150 MG TABCR PO (08:42)
[2023-05-30] MEDS: ASPIRIN 81 MG ENTERIC TABLET PO (08:42)
[2023-05-30] MEDS: MONTELUKAST SODIUM 5 MG TABLET PO (08:42)
[2023-05-30] MEDS: CYANOCOBALAMIN 500 MCG TABLET 2500 MCG PO (08:42)
[2023-05-30] MEDS: cefTRIAXone 2 GM/NS 100 ML 2 GM/100 ML BAG IVPB (08:59)
[2023-05-30 16:35] VITALS: BP 143/49; PULSE 81; RESP 18; TEMP 36.8; O2SAT 91
[2023-05-30 16:40] VITALS: O2SAT 97
[2023-05-30] MEDS: traZODone HCL 50 MG TABLET 100 MG PO (20:43)
[2023-05-30] MEDS: DIVALPROEX SODIUM ER 500 MG TAB.24H 1000 MG PO (20:44)
[2023-05-30] MEDS: ESCITALOPRAM OXALATE 10 MG TABLET PO (20:44)
--- NOTE | 2023-05-30 23:40 | PC.NURSE ---
Pt turned and repositioned to her side.
[2023-05-31] VITALS: BP 118/58; PULSE 80; RESP 20; TEMP 36.6; O2SAT 94
--- NOTE | 2023-05-31 02:00 | PC.NURSE ---
Pt turned and repositioned to her side; Pt more responsive and drank water at this time.
--- NOTE | 2023-05-31 04:15 | PC.NURSE ---
Pt turned and repositioned to her side.
[2023-05-31 05:30] VITALS: O2SAT 94
[2023-05-31] MEDS: LEVOTHYROXINE SODIUM 75 MCG TABLET PO (06:39)
--- NOTE | 2023-05-31 06:40 | PC.NURSE ---
Pt given Synthroid .75 mcg PO as ordered.
[2023-05-31] MEDS: SODIUM CHLORIDE 0.9% IV 1,000 ML 30 ML IV CONT (06:43)
[2023-05-31 08:00] VITALS: BP 136/70; PULSE 76; RESP 14; TEMP 36.6; O2SAT 95; O2SAT 96
--- NOTE | 2023-05-31 08:10 | PM.IMPN ---
Progress Note: A&P Assessment and Plan (1) Septic shock: Code(s): A41.9 - Sepsis, unspecified organism; R65.21 - Severe sepsis with septic shock Status: Acute (2) Recurrent UTI: Code(s): N39.0 - Urinary tract infection, site not specified Status: Acute Assessment and Plan: - CONTINUE ORAL ANTIBIOTICS -ENCOURAGE FLUIDS. Cr0.54 Rowe catheter placed urine positive and cultures sent off Vanc and Zosyn started patient more than likely Uroseptic (3) CHF (congestive heart failure): Code(s): I50.9 - Heart failure, unspecified Status: Acute Assessment and Plan: BNP 3030 gently hydrate due to hypotension and urinary tract infection Hold lasix for now until blood pressure comes up VAN and Zosyn medication administered. (4) Adult failure to thrive: Code(s): R62.7 - Adult failure to thrive Status: Acute Assessment and Plan: - eNCOURAGE PATIENT TO EAT AND ENCOURAGE TO PARTICAPTE -PLACEMENT NEEDS TO BE FOUND - Still awaiting on placement (5) Moderate protein-calorie malnutrition: Code(s): E44.0 - Moderate protein-calorie malnutrition Status: Chronic Assessment and Plan: -CONTINUE TO MONITOR INTAKE AND OUTPAT (6) Hypertension: Code(s): I10 - Essential (primary) hypertension Status: Acute Assessment and Plan: -MONITOR VITALS -STABLE Hold any bp medication (7) Hypothyroidism: Code(s): E03.9 - Hypothyroidism, unspecified Status: Chronic Assessment and Plan: - STABLE (8) Hyperlipidemia: Code(s): E78.5 - Hyperlipidemia, unspecified Status: Chronic Assessment and Plan: - STABLE Plan Physiccal therapy will resume today . Subjective Date/time seen: 05/31/23 08:10 Interval history: Patient is feeling better today and she will start to work with physical therapy today and plan for possible discharge [facility] on Monday. Exam Narrative: GENERAL: Critically ill-appearing, altered level of consciousness tachypnea with minor respiratory distress HEAD: Normocephalic, atraumatic. ENT:? Mucous membranes moist. CHEST: tachypnea minor respiratory distress and coarse crackles throughout HEART: borderline tachycardic rate. ? diminished peripheral pulses. ABDOMEN: Soft, nontender, nondistended. Rowe catheter draining very dark urine EXTREMITIES: Normal range of motion. No peripheral edema. SKIN: Warm dry normal color NEURO: arouses to painful stimuli PSYCH: unable to assess Objective Data Vital Signs Vital Signs: Vital Signs - 24 hr 05/30/23 08:25 05/30/23 16:35 05/30/23 16:40 Temperature 98.2 F Pulse Rate 81 Respiratory Rate 18 Blood Pressure 143/49 H Pulse Oximetry 95 91 97 Oxygen Delivery Nasal Cannula Room Air Nasal Cannula Oxygen Flow Rate 2 2 05/31/23 00:00 Temperature 97.8 F Pulse Rate 80 Respiratory Rate 20 Blood Pressure 118/58 L Pulse Oximetry 94 Oxygen Delivery Nasal Cannula Oxygen Flow Rate 2 Intake/Output Intake/Output: Intake & Output 05/28/23 05/29/23 05/30/23 05/31/23 23:59 23:59 23:59 23:59 Intake Total 2707 3760 3070 200 Output Total 450 2950 1400 900 Balance 2257 810 1670 -700 Meds/Results Medications: Active Medications Generic Name Dose Route Start Last Admin Trade Name Freq PRN Reason Stop Dose Admin Acetaminophen 650 mg 05/20/23 01:56 05/28/23 00:35 Acetaminophen 325 Mg Tablet PO 650 mg Q4H PRN Administration Mild Pain (1-3) or Fever Albuterol/Ipratropium 3 ml 05/28/23 01:16 05/28/23 08:57 Ipratropium 0.5 Mg/Albuterol Sulfate 2.5 Mg Ampul.Neb 3 Ml INHALATION 3 ml Q6HRT PRN Administration Shortness Of Breath Aspirin 81 mg 05/20/23 09:00 05/30/23 08:42 Aspirin 81 Mg Enteric Tablet PO 81 mg QAM MINH Administration Atorvastatin Calcium 80 mg 05/20/23 09:00 05/30/23 08:42 Atorvastatin 40 Mg Tablet PO 80 mg DAILY MINH Admin
[2023-05-31] MEDS: POTASSIUM CHLORIDE 20 MEQ ER TABLET 40 MEQ PO (08:20)
[2023-05-31] MEDS: MEGESTROL ACETATE (*CHEMO) 40 MG TABLET PO ×4 (09:54→20:47)
[2023-05-31] MEDS: ENOXAPARIN 40 MG/0.4 ML SYRINGE SUB-Q (09:54)
[2023-05-31] MEDS: busPIRone HCL 5 MG TABLET 10 MG PO ×2 (09:54→20:47)
[2023-05-31] MEDS: SODIUM CHLORIDE 500 MG TABLET 1500 MG PO ×2 (09:54→17:08)
[2023-05-31] MEDS: buPROPion HCL XL (24 HR) 150 MG TABCR PO (09:54)
[2023-05-31] MEDS: DIVALPROEX SODIUM ER 500 MG TAB.24H PO (09:55)
[2023-05-31] MEDS: ASPIRIN 81 MG ENTERIC TABLET PO (09:55)
[2023-05-31] MEDS: CYANOCOBALAMIN 500 MCG TABLET 2500 MCG PO (09:56)
[2023-05-31] MEDS: ATORVASTATIN 40 MG TABLET 80 MG PO (09:56)
[2023-05-31] MEDS: FOLIC ACID 0.4 MG TABLET 0.8 MG PO (09:56)
[2023-05-31] MEDS: cefTRIAXone 2 GM/NS 100 ML 2 GM/100 ML BAG IVPB (10:11)
[2023-05-31] MEDS: MONTELUKAST SODIUM 5 MG TABLET PO (10:13)
[2023-05-31] MEDS: GABAPENTIN 100 MG CAPSULE PO ×3 (10:14→17:08)
[2023-05-31 16:00] VITALS: BP 155/58; PULSE 84; RESP 17; TEMP 36.9; O2SAT 95
[2023-05-31] MEDS: DIVALPROEX SODIUM ER 500 MG TAB.24H 1000 MG PO (20:47)
[2023-05-31] MEDS: ESCITALOPRAM OXALATE 10 MG TABLET PO (20:48)
[2023-05-31] MEDS: traZODone HCL 50 MG TABLET 100 MG PO (20:48)
[2023-06-01] VITALS: BP 146/68; PULSE 62; RESP 20; TEMP 36.1; O2SAT 95
[2023-06-01 04:16] VITALS: PULSE 85; RESP 20; O2SAT 92
[2023-06-01] MEDS: SODIUM CHLORIDE 0.9% IV 1,000 ML 30 ML IV CONT (05:41)
[2023-06-01] MEDS: LEVOTHYROXINE SODIUM 75 MCG TABLET PO (05:42)
--- NOTE | 2023-06-01 05:47 | PC.NURSE ---
Incontinent of large brown formed and semi-formed stool. pericare and catheter care given. patient rudy well. Turned to right.
--- NOTE | 2023-06-01 05:51 | PC.NURSE ---
After pericare and bed change. Barrier cream applied.
[2023-06-01 07:35] VITALS: BP 130/76; PULSE 79; RESP 16; TEMP 36.5; O2SAT 92
--- NOTE | 2023-06-01 07:42 | PM.IMPN ---
Progress Note: A&P Assessment and Plan (1) Septic shock: Code(s): A41.9 - Sepsis, unspecified organism; R65.21 - Severe sepsis with septic shock Status: Acute (2) Recurrent UTI: Code(s): N39.0 - Urinary tract infection, site not specified Status: Acute Assessment and Plan: - CONTINUE ORAL ANTIBIOTICS -ENCOURAGE FLUIDS. Cr0.54 Rowe catheter placed urine positive and cultures sent off Vanc and Zosyn started patient more than likely Uroseptic (3) CHF (congestive heart failure): Code(s): I50.9 - Heart failure, unspecified Status: Acute Assessment and Plan: BNP 3030 gently hydrate due to hypotension and urinary tract infection Hold lasix for now until blood pressure comes up VAN and Zosyn medication administered. (4) Adult failure to thrive: Code(s): R62.7 - Adult failure to thrive Status: Acute Assessment and Plan: - eNCOURAGE PATIENT TO EAT AND ENCOURAGE TO PARTICAPTE -PLACEMENT NEEDS TO BE FOUND - Still awaiting on placement (5) Moderate protein-calorie malnutrition: Code(s): E44.0 - Moderate protein-calorie malnutrition Status: Chronic Assessment and Plan: -CONTINUE TO MONITOR INTAKE AND OUTPAT (6) Hypertension: Code(s): I10 - Essential (primary) hypertension Status: Acute Assessment and Plan: -MONITOR VITALS -STABLE Hold any bp medication (7) Hypothyroidism: Code(s): E03.9 - Hypothyroidism, unspecified Status: Chronic Assessment and Plan: - STABLE (8) Hyperlipidemia: Code(s): E78.5 - Hyperlipidemia, unspecified Status: Chronic Assessment and Plan: - STABLE Plan Physiccal therapy will resume today . Subjective Date/time seen: 06/01/23 07:42 Interval history: Patient in the bed and she is confused thinking she is at work. Patient is stating that she is feeling better and she is supposed to work with therapy . Patient will have labs drawn and we will evaluate. [facility]. Exam Narrative: GENERAL: Pale-appearing, altered level of consciousness very tired HEAD: Normocephalic, atraumatic. ENT:? Mucous membranes moist. CHEST: tachypnea minor respiratory distress and coarse crackles throughout HEART: borderline tachycardic rate. ? diminished peripheral pulses. ABDOMEN: Soft, nontender, nondistended. Rowe catheter draining very dark urine EXTREMITIES: Normal range of motion. No peripheral edema. SKIN: Warm dry normal color NEURO: arouses to painful stimuli PSYCH: unable to assess Objective Data Vital Signs Vital Signs: Vital Signs - 24 hr 05/31/23 08:00 05/31/23 08:00 05/31/23 16:00 Temperature 97.8 F 98.5 F Pulse Rate 76 76 84 Respiratory Rate 14 14 17 Blood Pressure 136/70 155/58 H Pulse Oximetry 96 95 95 Oxygen Delivery Nasal Cannula Nasal Cannula Room Air Oxygen Flow Rate 2 2 06/01/23 00:00 06/01/23 04:16 Temperature 96.9 F L Pulse Rate 62 85 Respiratory Rate 20 20 Blood Pressure 146/68 H Pulse Oximetry 95 92 Oxygen Delivery Room Air Room Air Oxygen Flow Rate Intake/Output Intake/Output: Intake & Output 05/29/23 05/30/23 05/31/23 06/01/23 23:59 23:59 23:59 23:59 Intake Total 3760 3070 1967 1100 Output Total 2950 1400 1525 1000 Balance 810 1670 442 100 Meds/Results Medications: Active Medications Generic Name Dose Route Start Last Admin Trade Name Freq PRN Reason Stop Dose Admin Acetaminophen 650 mg 05/20/23 01:56 05/28/23 00:35 Acetaminophen 325 Mg Tablet PO 650 mg Q4H PRN Administration Mild Pain (1-3) or Fever Albuterol/Ipratropium 3 ml 05/28/23 01:16 05/28/23 08:57 Ipratropium 0.5 Mg/Albuterol Sulfate 2.5 Mg Ampul.Neb 3 Ml INHALATION 3 ml Q6HRT PRN Administration Shortness Of Breath Aspirin 81 mg 05/20/23 09:00 05/31/23 09:55 Aspirin 81 Mg Enteric [facility]t [facility] [place] [facility]
[2023-06-01 08:03] LABS: Hematocrit 28.7 % (35.0-42.0); Hemoglobin 9.4 g/dL (11.7-13.8); Mean Corpuscular HGB Conc 32.8 g/dL (32-36); Mean Corpuscular Hemoglobin 31.1 pg (27.0-31.0); Mean Platelet Volume 9.7 fl (9.2-11.8); Platelet Count Result 245 K/mm3 (150-420); Red Blood Count 3.02 M/mm3 (4.20-5.40); Red Cell Distribution Width 16.9 % (11.6-14.4); White Blood Count 8.2 K/mm3 (4.8-10.8)
[2023-06-01 08:14] LABS: Anion Gap 6 mmol/L (4-12); Blood Urea Nitrogen 12 mg/dL (7-18); Calcium 9.2 mg/dL (8.5-10.1); Carbon Dioxide 31 mmol/L (21-32); Chloride 100 mmol/L (98-108); Estimated CRCL calculation 74 ml/min; Estimated Glomerular Filt Rate > 60; Glucose 86 mg/dL (70-99); Osmolality Calculated 282 mOsm/kg (285-295); Potassium 4.2 mmol/L (3.5-5.1); Sodium 137 mmol/L (136-145)
[2023-06-01 08:35] VITALS: O2SAT 92
[2023-06-01] MEDS: CYANOCOBALAMIN 500 MCG TABLET 2500 MCG PO (09:29)
[2023-06-01] MEDS: ENOXAPARIN 40 MG/0.4 ML SYRINGE SUB-Q (09:29)
[2023-06-01] MEDS: ATORVASTATIN 40 MG TABLET 80 MG PO (09:30)
[2023-06-01] MEDS: busPIRone HCL 5 MG TABLET 10 MG PO ×2 (09:30→21:09)
[2023-06-01] MEDS: FOLIC ACID 0.4 MG TABLET 0.8 MG PO (09:30)
[2023-06-01] MEDS: buPROPion HCL XL (24 HR) 150 MG TABCR PO (09:30)
[2023-06-01] MEDS: GABAPENTIN 100 MG CAPSULE PO ×3 (09:30→17:14)
[2023-06-01] MEDS: POTASSIUM CHLORIDE 20 MEQ ER TABLET 40 MEQ PO (09:30)
[2023-06-01] MEDS: ASPIRIN 81 MG ENTERIC TABLET PO (09:30)
[2023-06-01] MEDS: DIVALPROEX SODIUM ER 500 MG TAB.24H PO (09:30)
[2023-06-01] MEDS: MONTELUKAST SODIUM 5 MG TABLET PO (09:30)
[2023-06-01] MEDS: SODIUM CHLORIDE 500 MG TABLET 1500 MG PO ×2 (09:30→17:13)
[2023-06-01] MEDS: MEGESTROL ACETATE (*CHEMO) 40 MG TABLET PO ×4 (09:30→21:10)
[2023-06-01] MEDS: AMOXICILLIN/CLAVULANATE K 875-125 MG TAB 1 TABLET PO ×3 (09:32→21:10)
[2023-06-01 16:00] VITALS: BP 136/74; PULSE 78; RESP 18; TEMP 36.6; O2SAT 94
[2023-06-01] MEDS: ESCITALOPRAM OXALATE 10 MG TABLET PO (21:10)
[2023-06-01] MEDS: traZODone HCL 50 MG TABLET 100 MG PO (21:10)
[2023-06-01] MEDS: DIVALPROEX SODIUM ER 500 MG TAB.24H 1000 MG PO (21:10)
[2023-06-02] VITALS: BP 125/72; PULSE 88; RESP 16; TEMP 36.7; O2SAT 95
[2023-06-02] MEDS: LEVOTHYROXINE SODIUM 75 MCG TABLET PO (05:48)
[2023-06-02] MEDS: AMOXICILLIN/CLAVULANATE K 875-125 MG TAB 1 TABLET PO (05:48)
--- NOTE | 2023-06-02 06:19 | PC.NURSE ---
Patient was in bed sleeping at the start of the shift. She did not complain of pain, and did not need any PRN medications. Patient continues to have a catheter for urinary retention. She was incontinent of bowel, with a large BM. Patient slept well during the night. Patient will be D/Cd to a local longterm this morning, with PO antibiotics.
[2023-06-02 08:00] VITALS: BP 111/52; PULSE 80; RESP 20; TEMP 36.7; O2SAT 94; O2SAT 95
[2023-06-02] MEDS: ENOXAPARIN 40 MG/0.4 ML SYRINGE SUB-Q (08:23)
[2023-06-02] MEDS: POTASSIUM CHLORIDE 20 MEQ ER TABLET 40 MEQ PO (08:24)
[2023-06-02] MEDS: buPROPion HCL XL (24 HR) 150 MG TABCR PO (08:24)
[2023-06-02] MEDS: MEGESTROL ACETATE (*CHEMO) 40 MG TABLET PO (08:24)
[2023-06-02] MEDS: SODIUM CHLORIDE 500 MG TABLET 1500 MG PO (08:24)
[2023-06-02] MEDS: CYANOCOBALAMIN 500 MCG TABLET 2500 MCG PO (08:24)
[2023-06-02] MEDS: ATORVASTATIN 40 MG TABLET 80 MG PO (08:24)
[2023-06-02] MEDS: busPIRone HCL 5 MG TABLET 10 MG PO (08:25)
[2023-06-02] MEDS: GABAPENTIN 100 MG CAPSULE PO (08:25)
[2023-06-02] MEDS: ASPIRIN 81 MG ENTERIC TABLET PO (08:25)
[2023-06-02] MEDS: MONTELUKAST SODIUM 5 MG TABLET PO (08:25)
[2023-06-02] MEDS: FOLIC ACID 0.4 MG TABLET 0.8 MG PO (08:25)
[2023-06-02] MEDS: DIVALPROEX SODIUM ER 500 MG TAB.24H PO (08:25)
--- NOTE | 2023-06-02 08:26 | PM.DS ---
DS: Admitting Diagnosis Discharge Date 06/01 Admitting Diagnosis Failure to thrive DS: Discharge Diagnosis Discharge Diagnosis (1) Septic shock: Code(s): A41.9 - Sepsis, unspecified organism; R65.21 - Severe sepsis with septic shock Status: Acute (2) Recurrent UTI: Code(s): N39.0 - Urinary tract infection, site not specified Status: Acute Assessment and Plan: - CONTINUE ORAL ANTIBIOTICS -ENCOURAGE FLUIDS. Cr0.54 Rowe catheter placed urine positive and cultures sent off Vanc and Zosyn started patient more than likely Uroseptic (3) CHF (congestive heart failure): Code(s): I50.9 - Heart failure, unspecified Status: Acute Assessment and Plan: BNP 3030 gently hydrate due to hypotension and urinary tract infection Hold lasix for now until blood pressure comes up VAN and Zosyn medication administered. (4) Adult failure to thrive: Code(s): R62.7 - Adult failure to thrive Status: Acute Assessment and Plan: - eNCOURAGE PATIENT TO EAT AND ENCOURAGE TO PARTICAPTE -PLACEMENT NEEDS TO BE FOUND - Still awaiting on placement (5) Moderate protein-calorie malnutrition: Code(s): E44.0 - Moderate protein-calorie malnutrition Status: Chronic Assessment and Plan: -CONTINUE TO MONITOR INTAKE AND OUTPAT (6) Hypertension: Code(s): I10 - Essential (primary) hypertension Status: Acute Assessment and Plan: -MONITOR VITALS -STABLE Hold any bp medication (7) Hypothyroidism: Code(s): E03.9 - Hypothyroidism, unspecified Status: Chronic Assessment and Plan: - STABLE (8) Hyperlipidemia: Code(s): E78.5 - Hyperlipidemia, unspecified Status: Chronic Assessment and Plan: - STABLE Plan Physiccal therapy will resume today . DS: Summary Hospital Course Reason for hospitalization: UTI, failure to thrive Hospital Course: This is a 67-year-old female with a significant past medical history smoking, bipolar disorder, extra peridium movement disorder, dystonia, gait instability, hypertension, hypothyroidism, dyslipidemia, bilateral proximal carotid occlusion with distal revascularization? who presents to the hospital with failure to thrive.? Patient had a recent hospitalization from 03/17/2023-04/06/2023 for failure to thrive, urinary tract infection, hyponatremia.? After discharge patient was followed by home care until 04/20/2023.? She was also seen in the emergency room on 05/02 4 failure to thrive as well? However she was not admitted this round.? Patient re-presented to the emergency room after EMS was called due to generalized weakness and inability to take care of herself, decreased oral intake of food and fluid, with concerns of dehydration.? Per the daughter report patient gotten worse over the past 2 weeks.? Patient used to use a walker but now only uses a wheelchair for getting around.? She also has a significant weight loss due to her poor oral intake.? Of note patient recently lost her and that is when the symptoms started getting worse.? Daughter is requesting care home placement at this time as she is unable to care for her. workup in the hospital include a head CT which was negative for any acute intracranial process, age-related changes.? A chest x-ray which was negative for any acute cardiopulmonary process.? Initial labs showing a white blood cell count of 18.2, calcium 8.4, total CK 423, total protein 5.3, albumin 1.7.? A urine was obtained and showed trace ketones, 8.0 urine urobilinogen, otherwise normal.? Urine drug screen was negative.? Respiratory panel was negative for influenza a and B, RSV, COVID.? EKG showing sinus rhythm, rate of 61, QTC 409. On examination today patient appears weak and frail, minimal interaction as she does is right back to sleep and does not participate in conversation. Interval history 06/01: Patient was admitted for placement with diagnosis of failu
--- NOTE | 2023-06-02 10:47 | PC.NURSE ---
Called daughter Seda to notify her that her mother has now left for the jail.
--- NOTE | 2023-06-05 09:51 | PC.NURSE ---
Discharge call back, no questions from [facility] staff re discharge instructions
== END 2023-06-02 10:50 | DRG 871 ==
LOC: CHSED 05-20 00:32 → CHS2ND 05-20 01:29
PROVIDERS: Nurse Practitioner; Nurse Practitioner Acute Care; Nurse Practitioner Family; Admitting Provider Internal Medicine; Emergency Provider Emergency Medicine; PCP Family Medicine; Visit Provider Internal Medicine
DX: A41.9 Sepsis, unspecified organism (principal); R65.21 Severe sepsis with septic shock; N39.0 Urinary tract infection, site not specified; Z68.1 Body mass index [BMI] 19.9 or less, adult; E44.0 Moderate protein-calorie malnutrition; R62.7 Adult failure to thrive; I95.9 Hypotension, unspecified; I11.0 Hypertensive heart disease with heart failure; I50.9 Heart failure, unspecified; I71.40 Abdominal aortic aneurysm, without rupture, unspecified; I65.23 Occlusion and stenosis of bilateral carotid arteries; I73.9 Peripheral vascular disease, unspecified; E78.5 Hyperlipidemia, unspecified; R26.89 Other abnormalities of gait and mobility; G25.89 Other specified extrapyramidal and movement disorders; G24.9 Dystonia, unspecified; H26.9 Unspecified cataract; F31.9 Bipolar disorder, unspecified; F41.9 Anxiety disorder, unspecified
CPT/HCPCS: 36415; 36600; 70450; 71045; 71275; 80048; 80053; 80307; 81001; 82550; 82565; 82805; 83605; 83735; 83880; 84443; 84484; 85025; 85027; 85380; 87040; 87086; 87147; 87186; 87637; 92526; 92610; 93005; 94640; 96360; 96365; 96366; 97110; 97161; 97162; 97166; 97167; 97530; 97535; 99285; A9270; G0378; J0696; J1650; J1940; J3370; J7030; P9047; Q9967

== ENCOUNTER 2023-10-07 13:40 | Emergency (ER) | payer MEDICARE, SELFPAY ==
--- NOTE | ~2023-10-07 | CT_ITS ---
EXAMINATION: CT pelvis wo con DATE: 10/07/2023 14:12 INDICATION: Pelvic pain. TECHNIQUE: Computed tomography (CT) of the pelvis was performed without intravenous contrast. Automat ed exposure control and iterative reconstruction technique were employed. The dose-length product was 142.71 mGy-cm. COMPARISON: None FINDINGS: There is a 3.1 cm fusiform aneurysm of infrarenal aorta. There is diverticulosis of the col on without evidence of diverticulitis. There is subcutaneous fat stranding in the right proximal post erior thigh, consistent with inflammation. Partially visualized is a burst fracture of L3. There is s evere lumbar spondylosis. There is mild osteoarthritis of the hips. Osteitis pubis is noted. IMPRESSION: 1. L3 burst fracture. 2. 3.1 cm fusiform aneurysm of infrarenal aorta. Reviewed, dictated and finalized at location A.
--- NOTE | ~2023-10-07 | CT_ITS ---
EXAMINATION: CT thoracic lumbar wo con DATE: 10/07/2023 14:12 INDICATION: Back pain. Fall. TECHNIQUE: Computed tomography (CT) of the thoracic and lumbar spine was performed without intravenou s contrast. Automated exposure control and iterative reconstruction technique were employed. The dose -length product was 406.03 mGy-cm. COMPARISON: Chest CT 05/28/2023 FINDINGS: CT THORACIC SPINE: There is mild emphysema. There is kyphosis of thoracic spine. Bone alignment is no rmal. There is mildly decreased disc height at multiple levels. There is moderately decreased disc he ight at T4-T5 and T5-T6 and severely decreased disc height at T7-T8. There is multilevel facet joint osteoarthritis noted all frontal stenosis. No central canal stenosis. CT LUMBAR SPINE: There is a 3.1 cm fusiform aneurysm of the infrarenal aorta. There is 6 degrees levo curvature of lumbar spine. There is 10 mm anterolisthesis of L4 on L5. There is a burst fracture of L 3 with 2/5 loss of height. There is severely decreased disc height at L4-L5 and L5-S1. The following disc levels are specifically discussed: L1-L2: The disc does not extend beyond the endplate margin. There is mild bilateral facet joint osteo arthritis. There is no neural foraminal stenosis. There is no central canal stenosis. L2-L3: The disc is bulging. There is severe right and moderate left facet joint osteoarthritis. There is mild right neural foraminal stenosis. There is no central canal stenosis. L3-L4: The disc is bulging. There is severe bilateral facet joint osteoarthritis. There is mild bilat eral neural foraminal stenosis. There is no central canal stenosis. L4-L5: The disc does not extend beyond the endplate margin. There is severe bilateral facet joint ost eoarthritis. There is moderate bilateral neural foraminal stenosis. There is moderate central canal s tenosis. L5-S1: The disc is bulging. There is severe bilateral facet joint osteoarthritis. There is moderate b ilateral neural foraminal stenosis. There is mild central canal stenosis. IMPRESSION: 1. Acute L3 burst fracture. 2. Mild thoracic spondylosis and severe lumbar spondylosis. Reviewed, dictated and finalized at location A.
[2023-10-07 13:40] VITALS: BP 138/87; PULSE 89; RESP 18; TEMP 36.6; O2SAT 100
--- NOTE | 2023-10-07 13:47 | ED.BACK ---
HPI - Back Pain/Injury General Chief Complaint: Back Pain/Injury Stated Complaint: fall Time Seen by Provider: 10/07/23 13:42 Source: patient and EMS Mode of arrival: EMS Limitations: no limitations History of Present Illness HPI Narrative: 68 years old white [facility] because of a [facility]. Patient was in the bathroom, got up and stepped on something on the floor lost her balance and fell backward complaining of lower back pain. She denies head injury, neck pain, chest pain, shortness of breath, abdominal pain or extremity pain. Patient tested positive for COVID 2 days ago. She denies any fever, chills, nausea, vomiting, coughing or shortness of breath. Related Data Home Medications Medication Instructions Recorded Confirmed divalproex 500 mg tablet,extended 1,000 mg PO HS 03/17/23 09/22/23 release 24 hr levothyroxine 75 mcg tablet 75 mcg PO DAILY 03/17/23 09/22/23 divalproex 500 mg tablet,extended 500 mg PO DAILY 03/31/23 09/22/23 release 24 hr escitalopram oxalate 10 mg tablet 10 mg PO HS 05/03/23 09/22/23 folic acid 800 mcg tablet 0.8 mg PO DAILY 05/03/23 09/22/23 Vitamin B-12 2,500 mcg PO DAILY 05/19/23 09/22/23 buspirone 10 mg tablet 10 mg PO BID 05/19/23 09/22/23 capsaicin 0.075 % topical cream See Rx Instructions .Route .COMPLEX 05/19/23 09/22/23 (Arthritis Pain Relief (capsaicin)) clopidogrel 75 mg tablet 75 mg PO DAILY 06/07/23 09/22/23 Allergies Allergy/AdvReac Type Severity Reaction Status Date / Time No Known Allergies Allergy Verified 09/22/23 07:45 Review of Systems Review of Systems: All systems reviewed & are unremarkable except as noted in HPI and below PMFSH Past Medical History Medical History Ascending aortic aneurysm Bipolar disorder Cataracts, bilateral CHF (congestive heart failure) Depression Dysuria Hyperlipidemia Hypertension Hypothyroidism Left shoulder pain Malnutrition Muscular deconditioning On valproic acid therapy Peripheral vascular disease Seasonal allergies Tobacco abuse Surgical History Surgical History History of carpal tunnel surgery Social History Social History Smoking packs per day: 1 Smoking cigarettes per day: 20.0 Years smoked: 10 Smoking pack-years: 10.00 Smoking status: Former smoker Tobacco type: cigarettes Alcohol intake: never Substance use: never Substance use type: does not use Do You Feel Safe in your Home?: No Lack of Transportation: YES Lack of Food: Often True Current Housing: I Have Housing Concerned About Future Housing: Decline to Answer Difficulty Paying Gas/Electric Bills: No Difficulty Paying for Meds: YES Currently Unemployed: No Education: Grade School Difficulty w/ Childcare or Family Care: No Living arrangements: with family Additional living arrangements comments: . 3 adult children. Spiritual care concerns: No Exam Narrative: General appearance: Well-developed, well-nourished Skin: Normal color Head: Normocephalic, nontraumatic Eyes: Clear conjunctiva ENT: Oropharynx normal, ears normal, nose normal Neck: Supple, nontender Chest and respiratory: Airway patent, no respiratory distress, no accessory muscle use Heart: Regular rate/rhythm Abdomen: Soft, nontender, no organomegaly, quiet bowel sounds Vascular: Normal peripheral pulses, normal capillary refill. Musculoskeletal: Diffuse tenderness across lumbar area, no bruises, no swelling, no deformity Neurologic: Alert and oriented ?3, QUESTIONED DOCUMENTS EXAMINER is normal as tested, no gross motor deficit
[2023-10-07] MEDS: IBUPROFEN 600 MG TABLET PO (14:22)
[2023-10-07] MEDS: HYDROcodone/acetaminophen (*CRX) 5-325 MG TABLET 1 TAB PO (14:22)
--- NOTE | 2023-10-07 15:05 | PC.NURSE ---
dr david speaking with cesar francois in regards to plan of care . [phone]
[2023-10-07 16:25] VITALS: BP 134/89; PULSE 84; RESP 20; TEMP 37.1; O2SAT 92
--- NOTE | 2023-10-07 16:51 | PC.NURSE ---
cesar francois notified of transfer to [facility] . voiced understanding
[2023-10-07 17:28] VITALS: BP 159/75; PULSE 75; RESP 20; TEMP 36.9; O2SAT 94
== END 2023-10-07 17:38 | disposition short-term general hospital (02) ==
PROVIDERS: Emergency Provider Emergency Medicine; PCP Family Medicine
DX: S32.031A Stable burst fracture of third lumbar vertebra, initial encounter for closed fracture (principal); I11.0 Hypertensive heart disease with heart failure; I50.9 Heart failure, unspecified; E78.5 Hyperlipidemia, unspecified; Z87.891 Personal history of nicotine dependence; W01.0XXA Fall on same level from slipping, tripping and stumbling without subsequent striking against object, initial encounter
CPT/HCPCS: 72128; 72131; 72192; 99285; A9270

== ENCOUNTER 2023-12-03 01:13 | Observation (INO) | payer MEDICARE, SELFPAY ==
[2023-12-03] VITALS (10 sets, daily range): BP systolic 123–203; BP diastolic 60–168; PULSE 55–83; RESP 12–20; TEMP 36.1–36.4; O2SAT 90–100; BMI 19.7
--- NOTE | ~2023-12-03 | CT_ITS ---
EXAMINATION: CT brain wo con DATE: 12/03/2023 01:45 INDICATION: Head injury post fall TECHNIQUE: Computed tomography (CT) of the head was performed without intravenous contrast. Sagittal and coronal reconstructions were performed. The mA was adjusted according to patient size. Iterative reconstruction technique was employed. The dose-length product was 605.33 mGy-cm. COMPARISON: head CT dated 05/19/2023 FINDINGS: No fracture. No acute intracranial hemorrhage, acute infarction or abnormal extra axial fluid collect ion. There is mild scattered white matter hypoattenuation consistent with chronic small vessel ischem ic disease. Symmetric prominence of the sulci and and subarachnoid spaces overlying the convexities consistent with mild to moderate age-appropriate diffuse cerebral volume loss. Ventricles are normal and symmetric. No mass/mass effect. Changes of bilateral intraocular lens replacement. The orbits an d mastoid air cells are normal. Chronic opacification of the posterior left ethmoid air cell. IMPRESSION: 1. No fracture or acute intracranial process. 2. Age-related changes including mild to moderate diffuse volume loss with mild scattered white matte r hypoattenuation consistent with chronic small vessel ischemic disease. Reviewed, dictated and finalized at location A. IMPRESSION: 1. No fracture or acute intracranial process. 2. Age-related changes including mild to moderate diffuse volume loss with mild scattered white matter hypoattenuation consistent with chronic small vessel is chemic disease.
--- NOTE | ~2023-12-03 | CT_ITS ---
EXAMINATION: CT thoracic lumbar wo con DATE: 12/03/2023 03:00 INDICATION: Back pain post fall TECHNIQUE: Computed tomography (CT) of the thoracic and lumbar spine was performed without intravenou s contrast. Automated exposure control and iterative reconstruction technique were employed. The dose -length product was 766.20 mGy-cm. COMPARISON: 10/07/2023 FINDINGS: Thoracic spine: 5 degrees upper thoracic levocurvature. Minimal thoracic kyphosis. Vertebral body heights are normal. Severe disc height loss at C6-C7. Moderate disc height loss at T4-T5, T5-T6 and T8-T9 with mild disc height loss throughout the remainder of the thoracic spine. No central canal or neural foraminal mode nosis. Mild apical emphysema. Paravertebral soft tissues are unremarkable. Atherosclerotic coronary a rtery calcific lesions. Aortic valve calcification. Fusiform aneurysm at the aortic arch measuring up to 4.0 cm in maximal diameter. Lumbar spine: 8 degree lumbar levocurvature. Unchanged 9 mm anterolisthesis L4 on L5 with severe associated disc he ight loss. Chronic L3 burst fracture with progression of now 60% central vertebral body height loss a nd increased now up to 3 mm retropulsion. No new fractures identified. There is additional moderate d isc height loss at L5-S1. Multilevel facet osteoarthritis, severe bilaterally at L4-L5 and L5-S1. Mil d central canal stenosis at L3 resulting from the mild retropulsion which is new since the prior stud y. There is also been interval progression of now mild to moderate neural foraminal stenosis bilatera lly at L3-L4 resulting from the the progression of the burst fracture with ballooning of the central L3-L4 disc space. Narrowing of the disc space posteriorly. Additional unchanged central canal and padmini ral foraminal stenosis as detailed on a level by level basis on the prior study. Cholecystectomy clip s the gallbladder fossa. 1 mm nonobstructing stone at a lower pole calyx of the left kidney. Divertic ulosis without diverticulitis along the visualized descending and sigmoid colon. IMPRESSION: 1. Unchanged mild to moderate thoracic spondylosis. 2. Interval progression of a previously acute L3 burst fracture now 60% central vertebral body height loss with increasing mild central canal stenosis at L3 and moderate bilateral L3-L4 neural foraminal stenosis. 3. Otherwise unchanged severe lower lumbar prominent spondylosis and 9 mm anterolisthesis L4 on L5. Reviewed, dictated and finalized at location A. IMPRESSION: 1. Unchanged mild to moderate thoracic spondylosis. 2. Interval progression of a previously acute L3 burst fracture now 60% central vertebral body height loss with increasing mild central canal stenosis at L3 a nd moderate bilateral L3-L4 neural foraminal stenosis. 3. Otherwise unchanged severe lower lumbar prominent spondylosis and 9 mm anter olisthesis L4 on L5.
--- NOTE | 2023-12-03 01:25 | ECG_ITS ---
Test Date: 2023-12-03 01:47:03 Measurements Intervals [place] Rate: 59 P: 53 OH: 133 QRS: 23 QRSD: 89 T: 48 QT: 440 QTc: 438 Interpretive Statements SINUS BRADYCARDIA OTHERWISE WITHIN NORMAL LIMITS No previous ECG available for comparison Electronically Signed On 12-04-2023 07:38:20 CDT by Tanner Elias M.D.
--- NOTE | 2023-12-03 01:31 | PC.NURSE ---
patient transported to ct via stretcher
--- NOTE | 2023-12-03 01:32 | PC.NURSE ---
cardiopulmonart notified of ekg order
--- NOTE | 2023-12-03 01:33 | PC.NURSE ---
notified beverley in lab of new orders
--- NOTE | 2023-12-03 01:44 | PC.NURSE ---
vlad with cardiopulmonary at the bedside completing ekg
--- NOTE | 2023-12-03 01:48 | PC.NURSE ---
beverley with lab at the bedside
--- NOTE | 2023-12-03 01:54 | ED.AMS ---
HPI - Altered Mental Status General Chief Complaint: Altered Mental Status Stated Complaint: Altered Mental Status Time Seen by Provider: 12/03/23 01:21 Source: patient and EMS Mode of arrival: EMS Limitations: altered mental status and physical limitation History of Present Illness HPI narrative: this is a 68-year-old female with history of CHF hypertension hyperlipidemia presents via EMS because family members noticed that she was having altered mental status, EMS noted that she was alert oriented x1 but seems like she is improved during exam here in the ER she is alert oriented x2 currently with some chronic back pain she did have a fall and and hit her head on the left frontal area there is no blurry vision currently no headache no shortness of breath no chest pain neurologically intact there is no fever chills denies any dysuria or hematuria or flank pain. complaint: altered mental status Onset (ago): hour(s) Timing confirmed by: family member Severity: moderate Consistency of symptoms: waxing and waning Related Data Home Medications Medication Instructions Recorded Confirmed divalproex 500 mg tablet,extended 1,000 mg PO HS 03/17/23 09/22/23 release 24 hr levothyroxine 75 mcg tablet 75 mcg PO DAILY 03/17/23 09/22/23 divalproex 500 mg tablet,extended 500 mg PO DAILY 03/31/23 09/22/23 release 24 hr escitalopram oxalate 10 mg tablet 10 mg PO HS 05/03/23 09/22/23 folic acid 800 mcg tablet 0.8 mg PO DAILY 05/03/23 09/22/23 Vitamin B-12 2,500 mcg PO DAILY 05/19/23 09/22/23 buspirone 10 mg tablet 10 mg PO BID 05/19/23 09/22/23 capsaicin 0.075 % topical cream See Rx Instructions .Route .COMPLEX 05/19/23 09/22/23 (Arthritis Pain Relief (capsaicin)) clopidogrel 75 mg tablet 75 mg PO DAILY 06/07/23 09/22/23 Allergies Allergy/AdvReac Type Severity Reaction Status Date / Time No Known Allergies Allergy Verified 11/24/23 12:07 Review of Systems Review of Systems: All systems reviewed & are unremarkable except as noted in HPI and below PMFSH Past Medical History Medical History Ascending aortic aneurysm Bipolar disorder Cataracts, bilateral CHF (congestive heart failure) Depression Dysuria Hyperlipidemia Hypertension Hypothyroidism Left shoulder pain Malnutrition Muscular deconditioning On valproic acid therapy Peripheral vascular disease Seasonal allergies Tobacco abuse Surgical History Surgical History History of carpal tunnel surgery Social History Social History Smoking packs per day: 1 Smoking cigarettes per day: 20.0 Years smoked: 10 Smoking pack-years: 10.00 Smoking status: Former smoker Tobacco type: cigarettes Alcohol intake: never Substance use: never Substance use type: does not use Do You Feel Safe in your Home?: No Lack of Transportation: YES Lack of Food: Often True Current Housing: I Have Housing Concerned About Future Housing: Decline to Answer Difficulty Paying Gas/Electric Bills: No Difficulty Paying for Meds: YES Currently Unemployed: No Education: Grade School Difficulty w/ Childcare or Family Care: No Living arrangements: with family Additional living arrangements comments: . 3 adult children. Spiritual care concerns: No Exam Const: General: no acute distress Nutritional Appearance: well nourished Limitations: altered mental status HENMT: Head: normal to inspection Eyes: Conjunctivae: conjunctivae normal Pupils: Equal, round and reactive pupils present EOM: EOMs intact bilaterally Neck: Neck: normal visual inspection, no lymphadenopathy and no meningeal signs Chest: Chest palpation & inspection: normal inspection of the chest Resp: Effort & Inspection: normal respiratory effort Auscultation: clear to auscultation bilaterally Cardio: Rate: reg
--- NOTE | 2023-12-03 02:12 | PC.NURSE ---
patient incontinent of bowel and bladder on arrival. patient has been cleaned. new depends and new linens placed under patient. warm blanket given. placed in gown and onto night monitor. family is now present at the bedside. call light is in reach.
[2023-12-03 02:15] LABS: Basophils Absolute Auto 0.04 K/mm3 (0.00-0.10); Basophils Percent Auto 0.6 % (0.0-1.0); Eosinophils Absolute Auto 0.11 K/mm3 (0.02-0.50); Eosinophils Percent Auto 1.5 % (1.0-6.0); Hematocrit 37.7 % (35.0-42.0); Hemoglobin 12.2 g/dL (11.7-13.8); Immature Granulocyte Absolute 0.03 K/mm3 (0.00-0.00); Immature Granulocyte Percent A 0.4 % (0.0-0.0); Lymphocytes Absolute Auto 2.37 K/mm3 (1.10-4.50); Lymphocytes Percent Auto 32.6 % (18.0-42.0); Mean Corpuscular HGB Conc 32.4 g/dL (32-36); Mean Corpuscular Hemoglobin 31.3 pg (27.0-31.0); Mean Corpuscular Volume 96.7 fL (78.0-102.0); Mean Platelet Volume 9.7 fl (9.2-11.8); Monocytes Absolute Auto 0.92 K/mm3 (0.10-0.90); Monocytes Percent Auto 12.7 % (2.0-11.0); Neutrophils Percent Auto 52.2 % (50.0-70.0); Platelet Count Result 200 K/mm3 (150-420); Red Cell Distribution Width 14.5 % (11.6-14.4); White Blood Count 7.3 K/mm3 (4.8-10.8)
--- NOTE | 2023-12-03 02:27 | PC.NURSE ---
dr gonzalez at the bedside
[2023-12-03 02:34] LABS: Alanine Aminotransferase 6 U/L (14-59); Albumin Level 2.2 g/dL (3.4-5.0); Alkaline Phosphatase 67 U/L (46-116); Anion Gap 0 mmol/L (4-12); Aspartate Amino Transferase < 10 U/L (15-37); Bilirubin,Total 0.3 mg/dL (0.00-1.00); Blood Urea Nitrogen 10 mg/dL (7-18); Calcium 8.5 mg/dL (8.5-10.1); Carbon Dioxide 36 mmol/L (21-32); Chloride 100 mmol/L (98-108); Estimated Glomerular Filt Rate > 60; Glucose 77 mg/dL (70-99); Osmolality Calculated 280 mOsm/kg (285-295); Potassium 3.9 mmol/L (3.5-5.1); Sodium 136 mmol/L (136-145); Total Protein 5.4 g/dL (6.4-8.2); Troponin I 10.5 ng/L (0.00-60.4)
[2023-12-03 02:37] LABS: Lactic Acid Reflex 0.7 mmol/L (0.4-2.0)
--- NOTE | 2023-12-03 02:42 | PC.NURSE ---
patient transported to ct via stretcher
[2023-12-03 02:48] LABS: SARS-CoV-2 RNA PCR Negative (Negative)
[2023-12-03 02:51] LABS: Influenza A QL RT-PCR Negative (Negative); Influenza B QL RT-PCR Negative (Negative); Prothrombin Time 11.4 Seconds (9.50-12.1); RSV RNA, RT-PCR Negative (Negative)
--- NOTE | 2023-12-03 03:33 | PC.NURSE ---
urine taken to lab
[2023-12-03 04:01] LABS: Add Urine Microscopic? YES; Appearance Urine Clear (Clear); Bilirubin Urine Negative (Negative); Blood Urine Negative (Negative); Color Urine Light Yellow (Yellow); Glucose Urine UA Negative (Negative); Ketones Urine Trace (Negative); Leukocyte Esterase Ur 1+ LEU/UL (Negative); Nitrate Urine Negative (Negative); Protein Urine Negative (Negative); Specific Grav Ur 1.015 (1.010-1.020); Urobilinogen Urine 0.2 mg/dL (0.2-1.0)
[2023-12-03 04:04] LABS: Squamous Epithelial Cell Urine Few /hpf (Few)
[2023-12-03 04:05] LABS: Amphetamine Screen Urine Negative (Negative); Barbiturate Screen Urine Negative (Negative); Benzodiazepines Screen Urine Negative (Negative); Cannabinoid Screen Urine Negative (Negative); Cocaine Screen Urine Negative (Negative); Methadone Screen Urine Negative (Negative); Opiate Screen Urine Negative (Negative); Phencyclidine Screen Urine Negative (Negative)
--- NOTE | 2023-12-03 04:30 | PC.NURSE ---
patient resting on stretcher. patient is aware that she is going to be admitted. denies any needs at this time. call light in reach. depends clean and dry
--- NOTE | 2023-12-03 05:09 | ADMGEN ---
This patient, Maritza Noriega, was admitted to 2nd Floor Room 206-1. Patient/family oriented to hospital policies and general routines including ID bracelet, bed and alarms, visiting hours, pain management, procedures, bathroom and other care routines, personal items, smoking policy, room service/diet, and visiting hours. Information on how to activate the Rapid Response Team has been discussed. Patient/Family are encouraged to report perceived risks to care and to ask questions if they do not understand what they are told or what they should do.
[2023-12-03] MEDS: LEVOTHYROXINE SODIUM 75 MCG TABLET PO (05:40)
[2023-12-03] MEDS: SODIUM CHLORIDE 0.9% IV 1,000 ML 100 ML IV CONT (05:40)
--- NOTE | 2023-12-03 07:43 | PM.SD2 ---
Same Day Admit/Disch: HPI History of Present Illness Chief complaint: Altered Mental Status Narrative: Maritza Noriega is a 68 year old female with a significant past medical history smoking, bipolar disorder, extra peridium movement disorder, dystonia, gait instability, hypertension, hypothyroidism, dyslipidemia, bilateral proximal carotid occlusion with distal revascularization who presents to the hospital with altered mental status and fall. The patient states she slid out of her bed at home and hit her head. She denies headache, dizziness, chest pain, shortness of breath, abdominal pain, nausea, vomiting, diarrhea, fever or chills. She was recently discharged from the long term on 11/23 and care of her daughter. She had been in the long term since a hospitalization on May of this year with urosepsis and bacteremia. According to the emergency room physician symptoms of altered mental status seemed to resolve during her ER stay. In the emergency room labs were unremarkable. Urinalysis did show trace ketones, +1 leukocytes, and pyuria. Quad viral screen was negative. Urine drug screen negative. CT was unremarkable for acute pathology. CT of thoracic and lumbar spine showed chronic L3 burst fracture. Vital signs are stable with a heart rate of 83, respiration 14 pulse ox 98%, and blood pressure 124/80. The patient is afebrile with no leukocytosis. She was started on IV fluids and Rocephin for urinary tract infection. She was admitted for observation. Today she has worked with therapy and is up in the chair. She is back at her baseline mental status. She will be discharged home in care of her daughter, Seda. She is being given oral antibiotics to discharge with for three more days. She has been instructed to follow up with her PCP at her next scheduled visit on 12/13 and to call neurosurgery to schedule a follow up appointment regarding her vertebral height loss on CT scan. Continue with TLSO brace. Overall she did well and was discharged home in stable condition. [facility] Past Medical History Medical History Ascending aortic aneurysm Bipolar disorder Cataracts, bilateral CHF (congestive heart failure) Depression Dysuria Hyperlipidemia Hypertension Hypothyroidism Left shoulder pain Malnutrition Muscular deconditioning On valproic acid therapy Peripheral vascular disease Seasonal allergies Tobacco abuse Surgical History Surgical History History of carpal tunnel surgery Family History Family History Other Unknown family medical history Social History Social History Smoking packs per day: 1 Smoking cigarettes per day: 20.0 Years smoked: 10 Smoking pack-years: 10.00 Smoking status: Former smoker Tobacco type: cigarettes Alcohol intake: never Substance use: never Substance use type: does not use Do You Feel Safe in your Home?: Yes Lack of Transportation: No Lack of Food: Never True Current Housing: I Do Not Have Housing Concerned About Future Housing: No Difficulty Paying Gas/Electric Bills: No Difficulty Paying for Meds: No Currently Unemployed: No Education: Grade School Difficulty w/ Childcare or Family Care: No Living arrangements: with family Additional living arrangements comments: . 3 adult children. Spiritual care concerns: No Same Day Admit/Disch: Med Pre-admit Medications Home Medications Medication Instructions Recorded Confirmed Type divalproex 500 mg tablet,extended 1,000 mg PO HS 03/17/23 12/03/23 History release 24 hr levothyroxine 75 mcg tablet 75 mcg PO DAILY 03/17/23 12/03/23 History acetaminophen 325 mg tablet 650 mg PO Q8H PRN Mild Pain (1-3) 03/31/23 12/03/23 Rx Or Fever #0 tabs bupropion HCl 150 mg 24 hr tablet, 1
[2023-12-03 07:57] LABS: Basophils Absolute Auto 0.03 K/mm3 (0.00-0.10); Basophils Percent Auto 0.3 % (0.0-1.0); Eosinophils Absolute Auto 0.19 K/mm3 (0.02-0.50); Eosinophils Percent Auto 2.2 % (1.0-6.0); Hematocrit 40.3 % (35.0-42.0); Immature Granulocyte Absolute 0.04 K/mm3 (0.00-0.00); Immature Granulocyte Percent A 0.5 % (0.0-0.0); Lymphocytes Absolute Auto 2.29 K/mm3 (1.10-4.50); Lymphocytes Percent Auto 26.1 % (18.0-42.0); Mean Corpuscular HGB Conc 32.3 g/dL (32-36); Mean Corpuscular Hemoglobin 31.3 pg (27.0-31.0); Mean Corpuscular Volume 96.9 fL (78.0-102.0); Mean Platelet Volume 9.7 fl (9.2-11.8); Monocytes Percent Auto 12.6 % (2.0-11.0); Neutrophils Absolute Auto 5.11 K/mm3 (1.70-7.20); Neutrophils Percent Auto 58.3 % (50.0-70.0); Platelet Count Result 206 K/mm3 (150-420); Red Blood Count 4.16 M/mm3 (4.20-5.40); Red Cell Distribution Width 14.6 % (11.6-14.4); White Blood Count 8.8 K/mm3 (4.8-10.8)
[2023-12-03 08:13] LABS: Alanine Aminotransferase 9 U/L (14-59); Albumin Level 2.4 g/dL (3.4-5.0); Alkaline Phosphatase 71 U/L (46-116); Anion Gap -1 mmol/L (4-12); Aspartate Amino Transferase 12 U/L (15-37); Bilirubin,Total 0.3 mg/dL (0.00-1.00); Blood Urea Nitrogen 10 mg/dL (7-18); Calcium 8.6 mg/dL (8.5-10.1); Carbon Dioxide 37 mmol/L (21-32); Chloride 100 mmol/L (98-108); Estimated CRCL calculation 54 ml/min; Estimated Glomerular Filt Rate > 60; Glucose 87 mg/dL (70-99); Osmolality Calculated 280 mOsm/kg (285-295); Potassium 3.7 mmol/L (3.5-5.1); Sodium 136 mmol/L (136-145); Total Protein 6.2 g/dL (6.4-8.2)
[2023-12-03] MEDS: DIVALPROEX SODIUM ER 500 MG TAB.24H PO (08:34)
[2023-12-03] MEDS: POTASSIUM CHLORIDE 20 MEQ ER TABLET 40 MEQ PO (08:34)
[2023-12-03] MEDS: FOLIC ACID 0.4 MG TABLET 0.8 MG PO (09:15)
[2023-12-03] MEDS: MONTELUKAST SODIUM 5 MG TABLET BY MOUTH (09:29)
[2023-12-03] MEDS: CLOPIDOGREL BISULFATE 75 MG TABLET PO (09:30)
[2023-12-03] MEDS: MEGESTROL ACETATE (*CHEMO) 40 MG TABLET BY MOUTH ×2 (09:30→13:31)
[2023-12-03] MEDS: SODIUM CHLORIDE 500 MG TABLET PO (09:32)
[2023-12-03] MEDS: CYANOCOBALAMIN 1,000 MCG TABLET 2000 MCG PO (09:32)
[2023-12-03] MEDS: buPROPion HCL XL (24 HR) 150 MG TABCR PO (09:32)
[2023-12-03] MEDS: busPIRone HCL 5 MG TABLET 10 MG PO (09:33)
[2023-12-03] MEDS: ATORVASTATIN 40 MG TABLET 80 MG PO (09:33)
[2023-12-03] MEDS: ASPIRIN 81 MG ENTERIC TABLET PO (09:34)
[2023-12-03] MEDS: CYANOCOBALAMIN 500 MCG TABLET PO (09:36)
--- NOTE | 2023-12-03 15:55 | PC.NURSE ---
Patient discharging home. IV site removed, tip intact. Dressing applied to site. All belongings gathered together and sent home with patient. All discharge instructions and education reviewed with patient and daughter Seda. Both parties state understanding. Deny any questions at discharge. This nurse accompanied patient to front door via wheel chair. Patient left via private vehicle with daughter.
--- NOTE | 2023-12-05 10:37 | PC.NURSE ---
Discharge call back attempted, no answer
[2023-12-05 11:55] LABS: Vitamin D 25 Hydroxy 61 ng/mL (30-100)
--- NOTE | 2023-12-06 12:21 | PC.NURSE ---
discharge call back completed, can't get in to see PMD till next week, states mom is still weak and not doing well, advised to return to ED as needed if cannot see PMD
== END 2023-12-03 15:55 | disposition home or self-care (01) ==
LOC: CHSED 04:15 → CHS2ND 06:34
PROVIDERS: Admitting Provider Internal Medicine; Emergency Provider Emergency Medicine; PCP Family Medicine; Visit Provider Nurse Practitioner Acute Care
DX: N39.0 Urinary tract infection, site not specified (principal); R41.82 Altered mental status, unspecified; S09.90XA Unspecified injury of head, initial encounter; W19.XXXA Unspecified fall, initial encounter; I11.0 Hypertensive heart disease with heart failure; I50.9 Heart failure, unspecified; E78.5 Hyperlipidemia, unspecified; E03.9 Hypothyroidism, unspecified; I73.9 Peripheral vascular disease, unspecified; I71.21 Aneurysm of the ascending aorta, without rupture; F32.A Depression, unspecified; E46 Unspecified protein-calorie malnutrition; Z68.1 Body mass index [BMI] 19.9 or less, adult; Z79.02 Long term (current) use of antithrombotics/antiplatelets; Z87.891 Personal history of nicotine dependence; Z79.82 Long term (current) use of aspirin; Z20.822 Contact with and (suspected) exposure to COVID-19; Z79.899 Other long term (current) drug therapy
CPT/HCPCS: 36415; 70450; 72128; 72131; 80053; 80307; 81001; 82306; 83605; 84484; 85025; 85610; 85730; 87077; 87086; 87088; 87186; 87637; 93005; 96361; 96365; 97161; 99285; A9270; G0378; G0379; J0696; J7030

== ENCOUNTER 2023-12-08 16:20 | Outpatient (NON) | payer MEDICARE, SELFPAY ==
[2023-12-08 16:45] LABS: Add Urine Microscopic? YES; Appearance Urine Clear (Clear); Bilirubin Urine Negative (Negative); Blood Urine Trace-intact (Negative); Color Urine Light Yellow (Yellow); Glucose Urine UA Negative (Negative); Ketones Urine Negative (Negative); Leukocyte Esterase Ur 1+ LEU/UL (Negative); Nitrate Urine Negative (Negative); Protein Urine Negative (Negative); Specific Grav Ur 1.015 (1.010-1.020); Urobilinogen Urine 0.2 mg/dL (0.2-1.0); pH Urine 8.5 (5.0-8.0)
[2023-12-08 16:51] LABS: Bacteria Urine 2+ /hpf; Squamous Epithelial Cell Urine Few /hpf (Few)
== END 2023-12-08 16:21 | disposition home or self-care (01) ==
LOC: CHSLAB 16:22
PROVIDERS: Visit Provider Nurse Practitioner Family
DX: R39.9 Unspecified symptoms and signs involving the genitourinary system (principal)
CPT/HCPCS: 81001; 87086

== ENCOUNTER 2023-12-14 13:56 | Outpatient (CLI) | payer MEDICARE, SELFPAY ==
[2023-12-14 14:17] LABS: Basophils Absolute Auto 0.08 K/mm3 (0.00-0.10); Basophils Percent Auto 0.8 % (0.0-1.0); Eosinophils Absolute Auto 0.31 K/mm3 (0.02-0.50); Eosinophils Percent Auto 2.9 % (1.0-6.0); Hematocrit 38.8 % (35.0-42.0); Hemoglobin 12.9 g/dL (11.7-13.8); Immature Granulocyte Percent A 0.9 % (0.0-0.0); Lymphocytes Absolute Auto 1.26 K/mm3 (1.10-4.50); Lymphocytes Percent Auto 11.8 % (18.0-42.0); Mean Corpuscular HGB Conc 33.2 g/dL (32-36); Mean Corpuscular Hemoglobin 31.8 pg (27.0-31.0); Mean Corpuscular Volume 95.6 fL (78.0-102.0); Mean Platelet Volume 9.6 fl (9.2-11.8); Monocytes Absolute Auto 1.53 K/mm3 (0.10-0.90); Monocytes Percent Auto 14.4 % (2.0-11.0); Neutrophils Absolute Auto 7.37 K/mm3 (1.70-7.20); Neutrophils Percent Auto 69.2 % (50.0-70.0); Platelet Count Result 238 K/mm3 (150-420); Red Blood Count 4.06 M/mm3 (4.20-5.40); Red Cell Distribution Width 14.3 % (11.6-14.4); White Blood Count 10.7 K/mm3 (4.8-10.8)
[2023-12-14 14:38] LABS: Alanine Aminotransferase 9 U/L (14-59); Albumin Level 2.5 g/dL (3.4-5.0); Alkaline Phosphatase 74 U/L (46-116); Anion Gap 6 mmol/L (4-12); Aspartate Amino Transferase 13 U/L (15-37); Bilirubin,Total 0.3 mg/dL (0.00-1.00); Blood Urea Nitrogen 13 mg/dL (7-18); Calcium 9.1 mg/dL (8.5-10.1); Carbon Dioxide 28 mmol/L (21-32); Chloride 95 mmol/L (98-108); Estimated Glomerular Filt Rate > 60; Glucose 85 mg/dL (70-99); Osmolality Calculated 267 mOsm/kg (285-295); Potassium 5.3 mmol/L (3.5-5.1); Sodium 129 mmol/L (136-145)
[2023-12-14 15:01] LABS: Thyroid Stimulating Hormone Reflex 1.98 u/IU/mL (0.36-3.74)
== END 2023-12-14 13:57 | disposition home or self-care (01) ==
PROVIDERS: PCP Family Medicine; Visit Provider Family Medicine
DX: E03.9 Hypothyroidism, unspecified (principal); R29.6 Repeated falls
CPT/HCPCS: 36415; 80053; 84443; 85025

== ENCOUNTER 2023-12-23 10:10 | Observation (INO) | payer MEDICARE, SELFPAY ==
[2023-12-23] VITALS (33 sets, daily range): BP systolic 95–157; BP diastolic 62–83; PULSE 68–83; RESP 15–22; TEMP 36.4–37.3; O2SAT 91–100; BMI 22.5
--- NOTE | ~2023-12-23 | CT_ITS ---
EXAMINATION: CT brain wo con DATE: 12/29/2023 12:39 INDICATION: Altered mental status TECHNIQUE: Computed tomography (CT) of the head was performed without intravenous contrast. Sagittal and coronal reconstructions were performed. The mA was adjusted according to patient size. Iterative reconstruction technique was employed. The dose-length product was 605.33 mGy-cm. COMPARISON: head CT dated 12/24/2023 FINDINGS: No acute intracranial hemorrhage, acute infarction or abnormal extra axial fluid collection. There is mild scattered white matter hypoattenuation consistent with chronic small vessel ischemic disease. S ymmetric prominence of the sulci consistent with mild age-appropriate diffuse cerebral volume loss. V entricles are normal and symmetric. No mass/mass effect. Changes of bilateral intraocular lens replac ement. The orbits, paranasal sinuses and mastoid air cells are normal. Intracranial calcified cerebra l atherosclerosis is noted. IMPRESSION: 1. Normal aging brain with mild diffuse on loss and mild scattered white matter hypoattenuation consi stent with chronic small vessel ischemic disease. No acute intercranial process. Reviewed, dictated and finalized at location A. IMPRESSION: 1. Normal aging brain with mild diffuse on loss and mild scattered white matter hypoattenuation consistent with chronic small vessel ischemic disease. No acut e intercranial process.
--- NOTE | ~2023-12-23 | CT_ITS ---
EXAMINATION: CT cervical spine wo con DATE: 12/23/2023 12:15 INDICATION: Fall. Neck injury. TECHNIQUE: Computed tomography (CT) of the cervical spine was performed without intravenous contrast. Automated exposure control and iterative reconstruction technique were employed. The dose-length pro duct was 103.00 mGy-cm. COMPARISON: None FINDINGS: There is mild emphysema. Bone alignment is normal. Vertebral body heights are normal. There is severely decreased disc height at C3-C4, mildly decreased disc height at C4-C5, and severely decr eased disc height at C5-C6. The following disc levels are specifically discussed: C2-C3: There is mild left uncovertebral joint osteoarthritis. There is mild right and severe left fac et joint osteoarthritis. There is mild left neural foraminal stenosis. There is no central canal sten osis. C3-C4: There is severe bilateral uncovertebral joint osteoarthritis. There is severe bilateral facet joint osteoarthritis. There is mild right and moderate left neural foraminal stenosis. There is mild central canal stenosis. C4-C5: There is moderate right and mild left uncovertebral joint osteoarthritis. There is severe bila teral facet joint osteoarthritis. There is mild bilateral neural foraminal stenosis. There is mild ce ntral canal stenosis. C5-C6: There is severe bilateral uncovertebral joint osteoarthritis. There is mild bilateral facet taqueria int osteoarthritis. There is mild right and moderate left neural foraminal stenosis. There is mild ce ntral canal stenosis. C6-C7: There is no uncovertebral joint osteoarthritis. There is mild right and severe left facet join t osteoarthritis. There is mild left neural foraminal stenosis. There is no central canal stenosis. C7-T1: There is no uncovertebral joint osteoarthritis. There is mild right and moderate left facet taqueria int osteoarthritis. There is no neural foraminal stenosis. There is no central canal stenosis. IMPRESSION: 1. No fracture. 2. Severe cervical spondylosis. Reviewed, dictated and finalized at location A.
--- NOTE | ~2023-12-23 | CT_ITS ---
EXAMINATION: CT brain wo con DATE: 12/24/2023 13:21 INDICATION: Weakness. TECHNIQUE: Computed tomography (CT) of the head was performed without intravenous contrast. The mA wa s adjusted according to patient size. Iterative reconstruction technique was employed. The dose-lengt h product was 983.67 mGy-cm. COMPARISON: Head CT 12/23/2023 FINDINGS: There are scattered areas of low attenuation in the cerebral white matter, which is within normal limits for the patient's age. There is no intracranial hemorrhage, acute infarction, or abnorm al intracranial mass lesion. The ventricles are normal in size. There are likely changes of ocular le ns replacement surgeries. There is mild mucosal thickening in the paranasal sinuses. The mastoid air cells are normal. IMPRESSION: 1. Normal aging brain. Reviewed, dictated and finalized at location A. IMPRESSION: 1. Normal aging brain.
--- NOTE | ~2023-12-23 | CT_ITS ---
EXAMINATION: CT diagnostic chest wo con DATE: 12/29/2023 12:40 INDICATION: Productive cough and leukocytosis TECHNIQUE: Computed tomography (CT) of the chest was performed without intravenous contrast. Addition al 3D reconstructions utilizing coronal maximum intensity projection (MIP) were performed. Automated exposure control and iterative reconstruction technique were employed. The dose-length product was 13 3.74 mGy-cm. COMPARISON: 05/28/2023 and 04/05/2019 FINDINGS: Mild emphysema. There is bronchial wall thickening with mucous plugging of multiple bronchi in the bi lateral lower lobes and with peripheral tree-in-bud opacities consistent with pneumonia. Additional m ild discoid atelectasis in the right lower lobe. No pulmonary edema, pleural effusion or pneumothorax . Likely benign chronic 4 x 2 mm right apical nodule, unchanged since 2019. Heart size is normal. Aor tic valve and mitral annular calcification. No pericardial effusion. Ectatic ascending thoracic aorta measuring up to 3.9 x 3.7 cm. Small penetrating atherosclerotic ulcer versus saccular aneurysm measu ring 1.3 cm maximal diameter along the inferior margin of the aortic arch which is unchanged since . No pathologically enlarged thoracic lymphadenopathy. Cholecystectomy clips at the gallbladde r fossa. Moderate thoracic spondylosis. IMPRESSION: 1. Mild emphysema with bilateral lower lobe pneumonia. 2. Ectatic ascending thoracic aorta measuring up to 3.9 cm with unchanged small penetrating atheroscl erotic ulcer versus saccular aneurysm along the inferior margin of the aortic arch, unchanged since Reviewed, dictated and finalized at location A. IMPRESSION: 1. Mild emphysema with bilateral lower lobe pneumonia. 2. Ectatic ascending thoracic aorta measuring up to 3.9 cm with unchanged small penetrating atherosclerotic ulcer versus saccular aneurysm along the inferior margin of the aortic arch, unchanged since 05/28/2023
--- NOTE | ~2023-12-23 | XR_ITS ---
EXAMINATION: XR chest 1V portable DATE: 12/29/2023 11:11 INDICATION: Productive cough. Leukocytosis. TECHNIQUE: A single frontal view of the chest was obtained. COMPARISON: Chest view 12/23/2023, CT abdomen and pelvis 12/23/2023 FINDINGS: There is no pneumonia, pleural effusion, or pneumothorax. The heart size is normal. Surgica l clips in the right upper quadrant are likely from cholecystectomy. IMPRESSION: 1. No acute cardiopulmonary disease. Reviewed, dictated and finalized at location B.
--- NOTE | ~2023-12-23 | XR_ITS ---
EXAMINATION: XR hip LT 2V w AP pelvis DATE: 12/23/2023 12:25 INDICATION: Left hip pain. Fall. TECHNIQUE: An anteroposterior view of the pelvis and 2 views of left hip were obtained. COMPARISON: None. FINDINGS: Alignment is normal. No fracture. There is severe lumbar spondylosis. There is mild osteoar thritis of the hips. IMPRESSION: 1. Mild osteoarthritis of the hips. Reviewed, dictated and finalized at location A.
--- NOTE | ~2023-12-23 | XR_ITS ---
EXAMINATION: XR knee LT 3V DATE: 12/23/2023 12:25 INDICATION: Left knee pain. TECHNIQUE: 3 views of left knee were obtained. COMPARISON: Left knee radiographs 10/06/2010 FINDINGS: Alignment is normal. No fracture. Joint spaces are normal. No knee joint effusion. IMPRESSION: 1. Normal left knee. Reviewed, dictated and finalized at location A. IMPRESSION: 1. Normal left knee.
--- NOTE | ~2023-12-23 | CT_ITS ---
EXAMINATION: CT abdomen pelvis wo con DATE: 12/23/2023 13:14 INDICATION: Hematuria. TECHNIQUE: Computed tomography (CT) of the abdomen and pelvis was performed without intravenous contr ast. Automated exposure control and iterative reconstruction technique were employed. The dose-length product was 207.70 mGy-cm. COMPARISON: Pelvis CT 10/07/23, CT lumbar spine 12/03/2023 FINDINGS: The visualized portions of the lung bases demonstrate mild atelectasis. No pleural effusion . The heart size is normal. No pericardial effusion. The liver and spleen are normal. There are gonsalez es of cholecystectomy. The pancreas, adrenal glands, and right kidney are normal. There is a 2 mm sto ne in left kidney. There is calcified atherosclerosis of the aorta and many of the other arteries. Th ere is a 3.0 cm fusiform aneurysm of infrarenal aorta. There is diverticulosis of the colon without e vidence of diverticulitis. There are no dilated loops of bowel. The appendix is normal. There are no pathologically enlarged lymph nodes. There is no free intraperitoneal fluid. There is severe lumbar s pondylosis. There is a subacute burst fracture of L3. IMPRESSION: 1. 2 mm nonobstructing left kidney stone. 2. 3.0 cm fusiform aneurysm of infrarenal aorta. Reviewed, dictated and finalized at location A.
--- NOTE | ~2023-12-23 | XR_ITS ---
EXAMINATION: XR chest 1V DATE: 12/23/2023 12:26 INDICATION: Fall. Confusion. TECHNIQUE: A single frontal view of the chest was obtained. COMPARISON: Chest single view 05/28/2023 FINDINGS: There is no pneumonia, pleural effusion, or pneumothorax. The heart size is normal. Surgica l clips in the right upper quadrant are likely from cholecystectomy. There are old healed left rib fr actures. IMPRESSION: 1. No acute cardiopulmonary disease. Reviewed, dictated and finalized at location A.
--- NOTE | ~2023-12-23 | MR_ITS ---
EXAMINATION: MR brain/brain stem wo/w con DATE: 12/25/2023 13:35 INDICATION: Altered mental status. TECHNIQUE: Magnetic resonance imaging (MRI) of the brain and brainstem was performed without and with 10 mL MultiHance intravenous contrast. COMPARISON: Brain MRI 04/03/2023, head CT 12/24/2023 FINDINGS: There is no intracranial hemorrhage, acute infarction, or abnormal intracranial mass lesion . There are scattered areas of nonspecific increased T2-weighted signal intensity in the cerebral whi te matter, which is within normal limits for the patient's age. The ventricles are normal in size. T he paranasal sinuses are clear. There are likely changes of ocular lens replacement surgeries. There are trace bilateral mastoid effusions. IMPRESSION: 1. Normal aging brain. Reviewed, dictated and finalized at location B. IMPRESSION: 1. Normal aging brain.
--- NOTE | ~2023-12-23 | CT_ITS ---
EXAMINATION: CT brain wo con DATE: 12/23/2023 12:15 INDICATION: Confusion. Fall. TECHNIQUE: Computed tomography (CT) of the head was performed without intravenous contrast. The mA wa s adjusted according to patient size. Iterative reconstruction technique was employed. The dose-lengt h product was 529.67 mGy-cm. COMPARISON: Head CT 12/03/2023 FINDINGS: There are scattered areas of low attenuation in the cerebral white matter, which is within normal limits for the patient's age. There is no intracranial hemorrhage, acute infarction, or abnorm al intracranial mass lesion. The ventricles are normal in size. There is mild mucosal thickening in t he paranasal sinuses. There are likely changes of ocular lens replacement surgeries. The mastoid air cells are normal. IMPRESSION: 1. Normal aging brain. Reviewed, dictated and finalized at location A. IMPRESSION: 1. Normal aging brain.
[2023-12-23 11:32] LABS: Basophils Absolute Auto 0.1 K/mm3 (0.0-0.1); Basophils Percent Auto 0.5 % (0.2-1.2); Eosinophils Absolute Auto 0.1 K/mm3 (0-0.3); Hematocrit 38.5 % (37.0-47.0); Hemoglobin 12.1 g/dL (12.0-15.0); Immature Granulocyte Percent A 0.8 % (0-0.5); Lymphocytes Absolute Auto 2.51 K/mm3 (0.9-3.2); Lymphocytes Percent Auto 20.7 % (18.3-44.2); Mean Corpuscular HGB Conc 31.4 g/dl (32-36); Mean Corpuscular Hemoglobin 30.8 pg (26-34); Mean Platelet Volume 9.8 fl (7.4-10.4); Monocytes Absolute Auto 1.4 K/mm3 (0.1-0.6); Monocytes Percent Auto 11.6 % (2.6-8.5); Neutrophils Percent Auto 65.4 % (45.5-73.1); Platelet Count Result 223 k/mm3 (150-375); Red Blood Count 3.93 M/mm3 (4.2-5.4); Red Cell Distribution Width 14.6 % (11.5-14.5); White Blood Count 12.2 K/mm3 (4.5-10.0)
[2023-12-23 11:42] LABS: Partial Thromboplastin Time 25.2 Seconds (22.3-36.8)
[2023-12-23 11:48] LABS: Alanine Aminotransferase 9 U/L (6-35); Albumin Level 3.2 g/dL (3.5-5.1); Alkaline Phosphatase 55 U/L (38-126); Anion Gap 8 mmol/L (4-12); Aspartate Amino Transferase 20 U/L (14-36); Bilirubin,Total 0.5 mg/dL (0.2-1.3); Blood Urea Nitrogen 16 mg/dL (7-17); Carbon Dioxide 27 mmol/L (22-30); Chloride 100 mmol/L (98-107); Estimated CRCL calculation 61 ml/min; Estimated Glomerular Filt Rate > 60; Glucose 75 mg/dL (65-110); Magnesium 2.3 mg/dL (1.6-2.3); Potassium 4.8 mmol/L (3.4-5.0); Sodium 135 mmol/L (137-145)
[2023-12-23 11:57] LABS: Ethanol < 10 mg/dL (<10)
[2023-12-23 12:08] LABS: Add Urine Microscopic? YES; Amphetamine Screen Urine Negative (Negative); Appearance Urine Clear (Clear); Bacteria Urine None Seen /hpf; Barbiturate Screen Urine Negative (Negative); Benzodiazepines Screen Urine Negative (Negative); Bilirubin Urine Negative (Negative); Blood Urine Negative (Negative); Cannabinoid Screen Urine Negative (Negative); Cocaine Screen Urine Negative (Negative); Color Urine Yellow (Yellow); Glucose Urine UA Negative (Negative); Ketones Urine Trace mg/dL (Negative); Leukocyte Esterase Ur Trace LEU/UL (Negative); Methadone Screen Urine Negative (Negative); Need Manual Microscopic Reviewed; Nitrate Urine Negative (Negative); Non Pathogenic Casts 0-2; Opiate Screen Urine Negative (Negative); Phencyclidine Screen Urine Negative (Negative); Protein Urine Negative (Negative); Squamous Epithelial Cell Urine None Seen /hpf (Few); WBC Urine 0-5 /hpf (0-3); pH Urine 6.5 (5.0-9.0)
--- NOTE | 2023-12-23 13:47 | ED_ITS ---
HPI - General Adult General Chief complaint: Fall Stated complaint: gen. weak, LLE pain s/p fall yest. Time Seen by Provider: 12/23/23 10:13 Source: RN notes reviewed and old records reviewed Mode of arrival: EMS Limitations: dementia and other History of Present Illness HPI narrative: This is a 68 year old female who presents via EMS for evaluation of a fall and confusion. PAtient is oriented to person and place. She denies any complaints. Nursing reports patient was discharged home with her daughter from a longterm recently. Patient was going on an outing yesterday and she fell. It is reported that patient was having left hip pain. Patient does not have any complaints. Related Data Home Medications Medication Instructions Recorded Confirmed divalproex 500 mg tablet,extended 1,000 mg PO HS 03/17/23 12/14/23 release 24 hr levothyroxine 75 mcg tablet 75 mcg PO DAILY 03/17/23 12/14/23 divalproex 500 mg tablet,extended 500 mg PO DAILY 03/31/23 12/14/23 release 24 hr escitalopram oxalate 10 mg tablet 10 mg PO HS 05/03/23 12/14/23 folic acid 800 mcg tablet 0.8 mg PO DAILY 05/03/23 12/14/23 Vitamin B-12 2,500 mcg PO DAILY 05/19/23 12/14/23 buspirone 10 mg tablet 10 mg PO BID 05/19/23 12/14/23 capsaicin 0.075 % topical cream See Rx Instructions .Route .COMPLEX 05/19/23 12/14/23 (Arthritis Pain Relief (capsaicin)) clopidogrel 75 mg tablet 75 mg PO DAILY 06/07/23 12/14/23 Allergies Allergy/AdvReac Type Severity Reaction Status Date / Time No Known Allergies Allergy Verified 12/14/23 08:10 Review of Systems Constitutional: Constitutional: Denies fever(s) Cardiovascular: Cardiovascular: Denies chest pain Respiratory: Respiratory: Denies cough and Denies dyspnea Gastrointestinal: Gastrointestinal: Denies abdominal pain PMFSH Past Medical History Medical History Ascending aortic aneurysm Bipolar disorder Cataracts, bilateral CHF (congestive heart failure) Depression Dysuria Hyperlipidemia Hypothyroidism Left shoulder pain Malnutrition Muscular deconditioning On valproic acid therapy Peripheral vascular disease Seasonal allergies Tobacco abuse Surgical History Surgical History History of carpal tunnel surgery Family History Family History Other Unknown family medical history Social History Social History Smoking packs per day: 1 Smoking cigarettes per day: 20.0 Years smoked: 10 Smoking pack-years: 10.00 Smoking status: Former smoker Tobacco type: cigarettes Alcohol intake: never Substance use: never Substance use type: does not use Do You Feel Safe in your Home?: Yes Lack of Transportation: No Lack of Food: Never True Current Housing: I Do Not Have Housing Concerned About Future Housing: No Difficulty Paying Gas/Electric Bills: No Difficulty Paying for Meds: No Currently Unemployed: No Education: Grade School Difficulty w/ Childcare or Family Care: No Living arrangements: with family Additional living arrangements comments: . 3 adult children. Spiritual care concerns: No Exam Const: General: ill appearing Nutritional Appearance: thin Other: oriented to person and place, lethargic HENMT: Head: normal to inspection Eyes: Pupils: Equal, round and reactive pupils present EOM: EOMs intact bilaterally Resp: Effort & Inspection: normal respiratory effort Auscultation: clear to auscultation bilaterally Cardio: Rate: regular rate Rhythm: regular rhythm Heart sounds: no murmurs GI: GI Palp: Yes Soft to palpation, No Tenderness to palpation present (GI), No Guarding due to palpation present (GI) and No Rigid due to palpation Auscultation: normal bowel sounds Skin: General skin exam: pallor Neuro: General: moves all extremities Cranial nerves: Yes Nystagmus not present Extrem: General: no pedal edema Psych: Mental Status: mental status grossly normal Affect: normal affect Attitude: cooperative Course Course Emergency Course: Patient presented to ER with weakness and fall. CT brain and cervical spine ordered to assess for injury. labs ordered to assess weakness. labs shows leukocytosis, no UTI. CT abdomen and pelvis ordered to assess for possible infection, stone as cause of weakness. No significant findings but patient is lethargic and to weak to go home. Daughter can not care for her. Reevaluation(s) Reevaluation #1: I spoke with patient's daughter over the phone. She states that patient has had progressive weakness for 2 week and it worsened today. She is unable to care for patient at home. Date: 12/23/23 Time: 14:00 Consultations Consultation #1: I reviewed case with Sri with hospitalist. She is familiar with patient that has failure to thrive. She accepts patient to medical floor for observation. Date: 12/23/23 Time: 14:25 Vital Signs Vital signs: Vital Signs Temperature 97.6 F 12/23/23 10:14 Pulse Rate 73 12/23/23 10:14 Respiratory Rate 17 12/23/23 10:14 Blood Pressure 120/73 12/23/23 10:14 Temperature 97.6 F 12/23/23 10:26 Pulse Rate 79 12/23/23 14:01 Respiratory Rate 15 12/23/23 14:01 Blood Pressure 134/73 12/23/23 14:01 Pulse Oximetry 92 12/23/23 14:01 Medical Decision Making Vital Signs Vital Signs: Vital Signs Temperature 97.6 F 12/23/23 10:14 Pulse Rate 73 12/23/23 10:14 Respiratory Rate 17 12/23/23 10:14 Blood Pressure 120/73 12/23/23 10:14 Temperature 97.6 F 12/23/23 10:26 Pulse Rate 79 12/23/23 14:01 Respiratory Rate 15 12/23/23 14:01 Blood Pressure 134/73 12/23/23 14:01 Pulse Oximetry 92 12/23/23 14:01 Lab Data Lab results reviewed: Yes I reviewed the patient's lab results. 12/23/23 11:28 12/23/23 11:28 Labs: Lab Results 12/23/23 12/23/23 12/23/23 Range/Units 11:28 11:41 14:04 WBC 12.2 H (4.5-10.0) K/mm3 RBC 3.93 L (4.2-5.4) M/mm3 Hgb 12.1 (12.0-15.0) g/dL Hct 38.5 (37.0-47.0) % MCV 98.0 (80-100) fl MCH 30.8 (26-34) pg MCHC 31.4 L (32-36) g/dl RDW 14.6 H (11.5-14.5) % Plt Count 223 (150-375) k/mm3 MPV 9.8 (7.4-10.4) fl Immature Gran % (Auto) 0.8 H (0-0.5) % Neut % (Auto) 65.4 (45.5-73.1) % Lymph % (Auto) 20.7 (18.3-44.2) % [place] % (Auto) 11.6 H (2.6-8.5) % Eos % (Auto) 1.0 (0-4.4) % Baso % (Auto) 0.5 (0.2-1.2) % Lymph # (Auto) 2.51 (0.9-3.2) K/mm3 [place] # (Auto) 1.4 H (0.1-0.6) K/mm3 Eos # (Auto) 0.1 (0-0.3) K/mm3 Baso # (Auto) 0.1 (0.0-0.1) K/mm3 Abs Immat Gran (auto) 0.10 H (0.00-0.031) K/mm3 Absolute Neuts (auto) 8.0 H (1.3-6.7) K/mm3 Absolute Nucleated RBC 0.000 (0.0-0.012) K/mm3 Nucleated RBC % 0.0 (0.0-0.2) % APTT 25.2 (22.3-36.8) Seconds Methemoglobin 0.3 (0-1.5) %THb Sodium 135 L (137-145) mmol/L Potassium 4.8 (3.4-5.0) mmol/L Chloride 100 (98-107) mmol/L Carbon Dioxide 27 (22-30) mmol/L Anion Gap 8 (4-12) mmol/L BUN 16 (7-17) mg/dL Creatinine 0.60 L (0.7-1.0) mg/dL Estim Creat Clear Calc 61 ml/min Estimated GFR > 60 (59 - ) Glucose 75 (65-110) mg/dL Calcium 9.0 (8.4-10.2) mg/dL Magnesium 2.3 (1.6-2.3) mg/dL Total Bilirubin 0.5 (0.2-1.3) mg/dL AST 20 (14-36) U/L ALT 9 (6-35) U/L Alkaline Phosphatase 55 (38-126) U/L Total Protein 7.0 (6.3-8.2) g/dL Albumin 3.2 L (3.5-5.1) g/dL Urine Color Yellow (Yellow) Urine Appearance Clear (Clear) Urine pH 6.5 (5.0-9.0) Ur Specific [place] 1.020 (1.001-1.035) Urine Protein Negative (Negative) mg/dL Urine Glucose (UA) Negative (Negative) mg/dL Urine Ketones Trace H (Negative) mg/dL Ur Blood (Man) Negative (Negative) Urine Nitrate Negative (Negative) Urine Bilirubin Negative (Negative) Urine Urobilinogen 1.0 (<2.0) mg/dL Add Ur Microanalysis Reviewed Leukocyte Esterase Rfl Trace H (Negative) RADHA/UL Urine RBC 3-5 H (0-2) /hpf Urine WBC 0-5 (0-3) /hpf Ur Squamous Epith Cells None seen (Few) /hpf Urine Bacteria None seen /hpf Urine Casts 0-2 Urine Opiates Screen Negative (Negative) Urine Methadone Screen Negative (Negative) Ur Barbiturates Screen Negative (Negative) Ur Phencyclidine Scrn Negative (Negative) Ur Amphetamine Screen Negative (Negative) U Benzodiazepines Scrn Negative (Negative) Urine Cocaine Screen Negative (Negative) U Cannabinoids Screen Negative (Negative) Ethyl Alcohol < 10 (<10) mg/dL ABG Data ABG results: 12/23/23 14:04 Puncture Site Right brachial ABG pH 7.439 ABG pCO2 39.7 ABG pO2 77.0 L ABG PO2/FiO2 Ratio 3.67 ABG HCO3 26.3 H ABG O2 Saturation 95.8 ABG O2 Content 16.4 ABG Base Excess 2.1 A-a Gradient 25.2 Oxyhemoglobin 93.6 Carboxyhemoglobin 0.7 Reduced Hemoglobin 5.4 H Total Hemoglobin 12.4 O2 Delivery Device Room air O2 Liters/Min Not Reportable FiO2 21 Imaging Data Radiologist's impression: ITS Impressions Head CT 12/23/23 12:18 IMPRESSION: 1. Normal aging brain. Cervical Spine CT 12/23/23 12:23 IMPRESSION: 1. No fracture. 2. Severe cervical spondylosis. Hip/Pelvis X-Ray 12/23/23 12:30 IMPRESSION: 1. Mild osteoarthritis of the hips. Knee X-Ray 12/23/23 12:31 IMPRESSION: 1. Normal left knee. Chest X-Ray 12/23/23 12:36 IMPRESSION: 1. No acute cardiopulmonary disease. Abdomen/Pelvis CT 12/23/23 13:16 IMPRESSION: 1. 2 mm nonobstructing left kidney stone. 2. 3.0 cm fusiform aneurysm of infrarenal aorta. Discharge Plan Discharge Clinical Impression: Adult failure to thrive Patient Disposition: Still a Patient Condition: Stable Prescriptions: No Action divalproex 500 mg tablet extended release 24 hr 1,000 mg PO HS levothyroxine 75 mcg tablet 75 mcg PO DAILY Rx Instructions: TAKE 1 TABLET BY MOUTH EVERY DAY acetaminophen 325 mg Tablet 650 mg PO Q8H PRN (Reason: Mild Pain (1-3) Or Fever) Qty: 0 0RF bupropion HCl 150 mg tablet extended release 24 hr 150 mg PO DAILY Qty: 30 0RF capsaicin [Arthritis Pain Relief(capsaic)] 0.075 % cream See Rx Instructions .ROUTE .COMPLEX Rx Instructions: Apply to affected areas tid buspirone 10 mg tablet 10 mg PO BID Vitamin B-12 tablet 2,500 mcg PO DAILY folic acid 800 mcg Tablet 0.8 mg PO DAILY escitalopram oxalate 10 mg tablet 10 mg PO HS clopidogrel 75 mg tablet 75 mg PO DAILY midodrine 5 mg tablet 5 mg PO TID Qty: 90 3RF Rx Instructions: do not give last dose of day after 6PM or within 4 hrs of bedtime trazodone 100 mg tablet 100 mg PO QHS Qty: 30 2RF sodium chloride 1,000 mg tablet,soluble 1,500 mg PO BID Qty: 60 0RF megestrol 40 mg tablet 40 mg PO QID PRN (Reason: loss of appetite) Qty: 30 0RF divalproex 500 mg Tablet Extended Release 24 Hr 500 mg PO DAILY aspirin 81 mg Tablet,Delayed Release (Dr/Ec) 81 mg PO QAM 30 Days Qty: 30 0RF gabapentin 100 mg capsule See Rx Instructions .ROUTE .COMPLEX Qty: 90 0RF Dose Instruction: TAKE 1 CAPSULE BY MOUTH THREE TIMES A DAY Rx Instructions: TAKE 1 CAPSULE BY MOUTH THREE TIMES A DAY atorvastatin 80 mg tablet 80 mg PO DAILY Qty: 30 2RF diphenhydramine HCl 2 % gel 1 applic topical BID PRN (Reason: itching) Qty: 103 0RF Follow-up/Referrals: Louis Hughes, [Primary Care Provider] -
[2023-12-23 14:06] LABS: Alveolar/Arterial O2 Gradient 25.2 mmHg; Base Excess ABG 2.1 mEq/l (+/-2.0); Carboxyhemoglobin 0.7 % THb (0-2.0); Fractional Inspired Oxygen 21 %; HCO3 ABG 26.3 mEq/l (22.0-26.0); Methemoglobin ABG 0.3 %THb (0-1.5); Oxygen Content ABG 16.4 %vol (16.0-22.0); Oxygen Saturation ABG 95.8 % (95.0-100.0); Oxyhemoglobin 93.6 % THb (90.0-100.0); PCO2 ABG 39.7 mmHg (35.0-45.0); PO2 FiO2 Ratio Arterial Blood 3.67 %; Reduced Hemoglobin 5.4 %THb (0-5.0); Total Hemoglobin 12.4 g/dL (12.0-18.0); pH ABG 7.439 (7.350-7.450)
[2023-12-23 14:07] LABS: Device ROOM AIR; Site Drawn RIGHT BRACHIAL
--- NOTE | 2023-12-23 14:26 | ECG_ITS ---
Test Date: 2023-12-23 14:35:41 Measurements Intervals [place] Rate: 77 P: 72 MD: 134 QRS: 47 QRSD: 74 T: 63 QT: 356 QTc: 403 Interpretive Statements SINUS RHYTHM NONSPECIFIC ST ABNORMALITY ABNORMAL ECG Electronically Signed On 12-24-2023 13:05:23 CDT by Salvatore Virk M.D.
--- NOTE | 2023-12-23 14:57 | P.HP_ITS ---
H&P: HPI History of Present Illness Date/Time: 12/23/23 14:57 Chief Complaint: Adult failure to thrive s/p fall Narrative: This is a 68 year old female with a significant past medical history AAA, bipolar disorder, cataracts, CHF, Depression, hyperlipidemia, hypothyroidism, malnutrition, muscular deconditioning, peripheral vascular disease, tobacco abuse, former smoker who presented to the hospital after sustaining a fall at home. Patient is not a good historian and most of the history of presenting illness was obtained from the EMR. Patient was in a penitentiary up until last week when she went home to live with her daughter. It was noted that she fell when they were getting ready to go to an event outside the home. According to the family patient progressively got weaker since she was taken out of the penitentiary. Family states that they are unable to care for her at home due to her progressive weakness. Work up in the hospital includes a head CT which was negative, shown normal aging brain. Cervical spine CT was negative for fracture and shown severe cervical spondylosis. Hip and pelvis x-ray revealed mild OA of both hips. Left knee x-ray was negative. Chest x-ray was negative for any acute cardiopulmonary disease. Abdomen/pelvis CT shown a nonobstructing left kidney stone which measures 2mm, 3.0cm fusiform aneurysm of infrarenal aorta. Initial labs revealed a WBC 12.2, RBC 3.93, Na+ 135 otherwise unremarkable. Patient was started on IVF in the ER. Review of Systems Review of Systems: FTT ROS unobtainable: Yes unobtainable due to mental status PMFSH Past Medical History Medical History Ascending aortic aneurysm Bipolar disorder Cataracts, bilateral CHF (congestive heart failure) Depression Dysuria Hyperlipidemia Hypothyroidism Left shoulder pain Malnutrition Muscular deconditioning On valproic acid therapy Peripheral vascular disease Seasonal allergies Tobacco abuse Surgical History Surgical History History of carpal tunnel surgery Family History Family History Other Unknown family medical history Social History Social History Smoking packs per day: 1 Smoking cigarettes per day: 20.0 Years smoked: 10 Smoking pack-years: 10.00 Smoking status: Former smoker Alcohol intake: never Substance use: never Substance use type: does not use Do You Feel Safe in your Home?: Yes Lack of Transportation: No Lack of Food: Never True Current Housing: I Do Not Have Housing Concerned About Future Housing: No Difficulty Paying Gas/Electric Bills: No Difficulty Paying for Meds: No Currently Unemployed: No Education: Grade School Difficulty w/ Childcare or Family Care: No Living arrangements: with family Additional living arrangements comments: . 3 adult children. Spiritual care concerns: No Meds Home Medications and Allergies Home Medications Medication Instructions Recorded Confirmed Type divalproex 500 mg tablet,extended 1,000 mg PO HS 03/17/23 12/23/23 History release 24 hr levothyroxine 75 mcg tablet 75 mcg PO QAM 03/17/23 12/23/23 History acetaminophen 325 mg tablet 650 mg PO Q8H PRN Mild Pain (1-3) 03/31/23 12/23/23 Rx Or Fever #0 tabs bupropion HCl 150 mg 24 hr tablet, 150 mg PO DAILY #30 tabs 03/31/23 12/23/23 Rx extended release divalproex 500 mg tablet,extended 500 mg PO QAM 03/31/23 12/23/23 History release 24 hr aspirin 81 mg tablet,delayed 81 mg PO QAM 30 days #30 tabs 04/06/23 12/23/23 Rx release escitalopram oxalate 10 mg tablet 10 mg PO HS 05/03/23 12/23/23 History folic acid 800 mcg tablet 0.8 mg PO DAILY 05/03/23 12/23/23 History gabapentin 100 mg capsule See Rx Instructions .Route 05/17/23 12/23/23 Rx .COMPLEX #90 caps Vitamin B-12 2,500 mcg PO DAILY 05/19/23 12/23/23 History buspirone 10 mg tablet 10 mg PO BID 05/19/23 12/23/23 History clopidogrel 75 mg tablet 75 mg PO DAILY 06/07/23 12/23/23 History atorvastatin 80 mg tablet 80 mg PO DAILY #30 tabs 06/22/23 12/23/23 Rx megestrol 40 mg tablet 40 mg PO QID PRN loss of appetite 12/08/23 12/23/23 Rx #30 tabs sodium chloride 1,000 mg soluble 1,500 mg PO BID #60 tabs 12/08/23 12/23/23 Rx tablet trazodone 100 mg tablet 100 mg PO QHS #30 tabs 12/08/23 12/23/23 Rx midodrine 5 mg tablet 5 mg PO TID #90 tabs 12/14/23 12/23/23 Rx Allergies Allergy/AdvReac Type Severity Reaction Status Date / Time No Known Allergies Allergy Verified 12/14/23 08:10 Vital Signs Vital Signs - 24 hr 12/23/23 10:14 12/23/23 10:26 12/23/23 11:29 Temperature 97.6 F 97.6 F Pulse Rate 73 73 71 Respiratory Rate 17 16 19 Blood Pressure 120/73 120/73 Pulse Oximetry 92 95 12/23/23 11:30 12/23/23 11:31 12/23/23 11:45 Temperature Pulse Rate 74 73 74 Respiratory Rate 20 18 15 Blood Pressure 95/72 L Pulse Oximetry 93 94 93 12/23/23 11:46 12/23/23 12:00 12/23/23 12:01 Temperature Pulse Rate 74 68 79 Respiratory Rate 18 22 H 20 Blood Pressure 105/76 103/62 Pulse Oximetry 93 92 94 12/23/23 12:39 12/23/23 12:46 12/23/23 13:00 Temperature Pulse Rate 73 74 79 Respiratory Rate 18 20 20 Blood Pressure 118/62 153/67 H Pulse Oximetry 91 92 92 12/23/23 13:01 12/23/23 13:16 12/23/23 13:23 Temperature Pulse Rate 72 69 74 Respiratory Rate 20 18 20 Blood Pressure 137/79 144/76 H Pulse Oximetry 93 93 94 12/23/23 13:30 12/23/23 13:31 12/23/23 13:45 Temperature Pulse Rate 73 72 83 Respiratory Rate 20 20 20 Blood Pressure 136/66 Pulse Oximetry 93 91 95 12/23/23 13:46 12/23/23 14:00 12/23/23 14:01 Temperature Pulse Rate 75 83 79 Respiratory Rate 20 18 15 Blood Pressure 120/78 134/73 Pulse Oximetry 92 96 92 Exam Narrative: General: chronically ill and weak appearing, malnourished Head: atraumatic, no encephalopathy Eyes: PERRLA, sclera clear ENT: tacky mucous membranes, nasal passages clear Neck: supple, no JVD, no adenopathy, trachea midline Cardiac: Normal S1 and S2. Murmur noted. No gallops or friction rubs, peripheral pulses intact. Respiratory: Lungs clear to auscultation, no adventitious lung sounds, currently on room air Gastrointestinal: soft, non-distended, non-tender, normoactive bowel sounds. : voiding without difficulty. Extremities: no edema, flacid/lethargic in the bed, muscular deconditioning noted Skin: clean, dry, intact. No wounds or lesions. Neuro: Alert to voice, oriented x1-2 , unable to do full neuro assessment due to mental status Psych: minimally interactive. Unable to assess psych history H&P: Results Labs Labs: Short CBC 12/23/23 Range/Units 11:28 WBC 12.2 H (4.5-10.0) K/mm3 Hgb 12.1 (12.0-15.0) g/dL Hct 38.5 (37.0-47.0) % Plt Count 223 (150-375) k/mm3 BMP 12/23/23 11:28 Sodium 135 L Potassium 4.8 Chloride 100 Carbon Dioxide 27 BUN 16 Creatinine 0.60 L Glucose 75 Calcium 9.0 Liver Function 12/23/23 Range/Units 11:28 Total Bilirubin 0.5 (0.2-1.3) mg/dL AST 20 (14-36) U/L ALT 9 (6-35) U/L Alkaline Phosphatase 55 (38-126) U/L Albumin 3.2 L (3.5-5.1) g/dL Urine 12/23/23 Range/Units 11:41 Urine Color Yellow (Yellow) Urine Appearance Clear (Clear) Urine pH 6.5 (5.0-9.0) Ur Specific [place] 1.020 (1.001-1.035) Urine Protein Negative (Negative) mg/dL Urine Glucose (UA) Negative (Negative) mg/dL Imaging abdomen/pelvis CT: Radiologist's impression: EXAMINATION: CT abdomen pelvis wo con DATE: 12/23/2023 13:14 INDICATION: Hematuria. TECHNIQUE: Computed tomography (CT) of the abdomen and pelvis was performed without intravenous contrast. Automated exposure control and iterative reconstruction technique were employed. The dose-length product was 207.70 mGy- cm. COMPARISON: Pelvis CT 10/07/23, CT lumbar spine 12/03/2023 FINDINGS: The visualized portions of the lung bases demonstrate mild atelectasis. No pleural effusion. The heart size is normal. No pericardial effusion. The liver and spleen are normal. There are changes of cholecystectomy. The pancreas, adrenal glands, and right kidney are normal. There is a 2 mm stone in left kidney. There is calcified atherosclerosis of the aorta and many of the other arteries. There is a 3.0 cm fusiform aneurysm of infrarenal aorta. There is diverticulosis of the colon without evidence of diverticulitis. There are no dilated loops of bowel. The appendix is normal. There are no pathologically enlarged lymph nodes. There is no free intraperitoneal fluid. There is severe lumbar spondylosis. There is a subacute burst fracture of L3. IMPRESSION: 1. 2 mm nonobstructing left kidney stone. 2. 3.0 cm fusiform aneurysm of infrarenal aorta. Reviewed, dictated and finalized at location A. Chest x-ray: Radiologist's impression: EXAMINATION: XR chest 1V DATE: 12/23/2023 12:26 INDICATION: Fall. Confusion. TECHNIQUE: A single frontal view of the chest was obtained. COMPARISON: Chest single view 05/28/2023 FINDINGS: There is no pneumonia, pleural effusion, or pneumothorax. The heart size is normal. Surgical clips in the right upper quadrant are likely from cholecystectomy. There are old healed left rib fractures. IMPRESSION: 1. No acute cardiopulmonary disease. Reviewed, dictated and finalized at location A. left knee x-ray: Radiologist's impression: EXAMINATION: XR knee LT 3V DATE: 12/23/2023 12:25 INDICATION: Left knee pain. TECHNIQUE: 3 views of left knee were obtained. COMPARISON: Left knee radiographs 10/06/2010 FINDINGS: Alignment is normal. No fracture. Joint spaces are normal. No knee joint effusion. IMPRESSION: 1. Normal left knee. Reviewed, dictated and finalized at location A. hip and pelvis x-ray: Radiologist's impression: EXAMINATION: XR hip LT 2V w AP pelvis DATE: 12/23/2023 12:25 INDICATION: Left hip pain. Fall. TECHNIQUE: An anteroposterior view of the pelvis and 2 views of left hip were obtained. COMPARISON: None. FINDINGS: Alignment is normal. No fracture. There is severe lumbar spondylosis. There is mild osteoarthritis of the hips. IMPRESSION: 1. Mild osteoarthritis of the hips. Reviewed, dictated and finalized at location A. cervical spine CT: Radiologist's impression: EXAMINATION: CT cervical spine wo con DATE: 12/23/2023 12:15 INDICATION: Fall. Neck injury. TECHNIQUE: Computed tomography (CT) of the cervical spine was performed without intravenous contrast. Automated exposure control and iterative reconstruction technique were employed. The dose-length product was 103.00 mGy-cm. COMPARISON: None FINDINGS: There is mild emphysema. Bone alignment is normal. Vertebral body heights are normal. There is severely decreased disc height at C3-C4, mildly decreased disc height at C4-C5, and severely decreased disc height at C5-C6. The following disc levels are specifically discussed: C2-C3: There is mild left uncovertebral joint osteoarthritis. There is mild right and severe left facet joint osteoarthritis. There is mild left neural foraminal stenosis. There is no central canal stenosis. C3-C4: There is severe bilateral uncovertebral joint osteoarthritis. There is severe bilateral facet joint osteoarthritis. There is mild right and moderate left neural foraminal stenosis. There is mild central canal stenosis. C4-C5: There is moderate right and mild left uncovertebral joint osteoarthritis. There is severe bilateral facet joint osteoarthritis. There is mild bilateral neural foraminal stenosis. There is mild central canal stenosis. C5-C6: There is severe bilateral uncovertebral joint osteoarthritis. There is mild bilateral facet joint osteoarthritis. There is mild right and moderate left neural foraminal stenosis. There is mild central canal stenosis. C6-C7: There is no uncovertebral joint osteoarthritis. There is mild right and severe left facet joint osteoarthritis. There is mild left neural foraminal stenosis. There is no central canal stenosis. C7-T1: There is no uncovertebral joint osteoarthritis. There is mild right and moderate left facet joint osteoarthritis. There is no neural foraminal stenosis. There is no central canal stenosis. IMPRESSION: 1. No fracture. 2. Severe cervical spondylosis. Reviewed, dictated and finalized at location A. CT scan - head: Radiologist's impression: EXAMINATION: CT brain wo con DATE: 12/23/2023 12:15 INDICATION: Confusion. Fall. TECHNIQUE: Computed tomography (CT) of the head was performed without intravenous contrast. The mA was adjusted according to patient size. Iterative reconstruction technique was employed. The dose-length product was 529.67 mGy- cm. COMPARISON: Head CT 12/03/2023 FINDINGS: There are scattered areas of low attenuation in the cerebral white matter, which is within normal limits for the patient's age. There is no intracranial hemorrhage, acute infarction, or abnormal intracranial mass lesion. The ventricles are normal in size. There is mild mucosal thickening in the paranasal sinuses. There are likely changes of ocular lens replacement surgeries. The mastoid air cells are normal. IMPRESSION: 1. Normal aging brain. Reviewed, dictated and finalized at location A. Assessment and Plan Assessment and plan (1) Adult failure to thrive: Code(s): R62.7 - Adult failure to thrive Status: Chronic Assessment and Plan: --left penitentiary about 1 week ago to live with family, progressively got weaker since that time. Family unable to care for her at home due to her progre ssive weakness. Patient is well known to our service at [facility]. She has had multiple admissions for FTT, muscular deconditioning, frequent falls, weakness, and malnutrition. * PT and OT ordered * Case coordination consulted for placement (2) Muscular deconditioning: Code(s): R29.898 - Other symptoms and signs involving the musculoskeletal system Status: Acute Assessment and Plan: see above plan of care #1 (3) Weakness: Code(s): R53.1 - Weakness Status: Acute Assessment and Plan: see above plan of care #1 (4) Frequent falls: Code(s): R29.6 - Repeated falls Status: Chronic Assessment and Plan: see above plan of care #1 (5) Malnutrition: Qualifiers: Malnutrition type: protein-calorie malnutrition Protein-calorie malnutrition severity: severe Qualified Code(s): E43 - Unspecified severe protein-calorie malnutrition Code(s): E46 - Unspecified protein-calorie malnutrition Status: Chronic Assessment and Plan: * Moderate protein calorie malnutrition * Continue Ensure clear TID * encourage po intake * continue megestrol for appetite * According to the EMR and 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 note she has gained almost 14 pounds since March of this year (6) Bipolar disorder: Code(s): F31.9 - Bipolar disorder, unspecified Status: Chronic Assessment and Plan: * continue divalproex, BuSpar and trazodone (7) Hypothyroidism: Code(s): E03.9 - Hypothyroidism, unspecified Status: Chronic Assessment and Plan: * Continue Synthroid * TSH was 1.98 on 12/14/23 (8) Depression: Code(s): F32.9 - Major depressive disorder, single episode, unspecified Status: Chronic Assessment and Plan: * continue escitalopram (9) Hyperlipidemia: Code(s): E78.5 - Hyperlipidemia, unspecified Status: Chronic Assessment and Plan: * continue aspirin and atorvastatin Quality VTE Prophylaxis VTE prophylaxis: mechanical ordered Hospitalist MIPS Advance Care Plan I have confirmed that the patient's Advanced Care Plan is present, code status is documented, or surrogate decision maker is listed in patient medical record.: Yes Medication Reconciliation I have utilized all available resources to obtain, update and review the patients current medications (includes all prescriptions, OTC, herbals, cannabis, and nutritional supplements).: Yes
--- NOTE | 2023-12-23 15:28 | PC.NURSE ---
Daughter Rehan updated on pt condition.
--- NOTE | 2023-12-23 15:39 | ADMGEN ---
This patient, Maritza Noriega, was admitted to Medical Room 248-. Patient/family oriented to hospital policies and general routines including ID bracelet, bed and alarms, visiting hours, pain management, procedures, bathroom and other care routines, personal items, smoking policy, room service/diet, and visiting hours. Information on how to activate the Rapid Response Team has been discussed. Patient/Family are encouraged to report perceived risks to care and to ask questions if they do not understand what they are told or what they should do.
[2023-12-23] MEDS: GABAPENTIN 100 MG CAPSULE PO (20:53)
[2023-12-23] MEDS: DIVALPROEX SODIUM ER 500 MG TAB.24H 1000 MG PO (20:53)
[2023-12-23] MEDS: ESCITALOPRAM OXALATE 10 MG TABLET PO (20:53)
[2023-12-23] MEDS: traZODone HCL 50 MG TABLET 100 MG PO (20:53)
[2023-12-23] MEDS: ACETAMINOPHEN 325 MG TABLET 650 MG PO (20:53)
[2023-12-24 00:10] VITALS: BP 170/58; PULSE 79; RESP 16; TEMP 36.8; O2SAT 92
[2023-12-24 05:45] VITALS: BP 123/60; PULSE 86; RESP 16; TEMP 36.8; O2SAT 93
[2023-12-24] MEDS: GABAPENTIN 100 MG CAPSULE PO ×2 (06:02→20:39)
[2023-12-24] MEDS: LEVOTHYROXINE SODIUM 75 MCG TABLET PO (06:02)
[2023-12-24 06:18] LABS: Basophils Absolute Auto 0.1 K/mm3 (0.0-0.1); Basophils Percent Auto 0.7 % (0.2-1.2); Eosinophils Absolute Auto 0.1 K/mm3 (0-0.3); Eosinophils Percent Auto 0.9 % (0-4.4); Hematocrit 40.5 % (37.0-47.0); Hemoglobin 12.8 g/dL (12.0-15.0); Immature Granulocyte Absolute 0.08 K/mm3 (0.00-0.031); Immature Granulocyte Percent A 0.6 % (0-0.5); Lymphocytes Absolute Auto 2.14 K/mm3 (0.9-3.2); Lymphocytes Percent Auto 15.8 % (18.3-44.2); Mean Corpuscular HGB Conc 31.6 g/dl (32-36); Mean Corpuscular Hemoglobin 30.9 pg (26-34); Mean Corpuscular Volume 97.8 fl (80-100); Mean Platelet Volume 9.7 fl (7.4-10.4); Monocytes Percent Auto 7.5 % (2.6-8.5); Neutrophils Absolute Auto 10.1 K/mm3 (1.3-6.7); Neutrophils Percent Auto 74.5 % (45.5-73.1); Platelet Count Result 245 k/mm3 (150-375); Red Blood Count 4.14 M/mm3 (4.2-5.4); Red Cell Distribution Width 14.6 % (11.5-14.5); White Blood Count 13.6 K/mm3 (4.5-10.0)
[2023-12-24 06:27] LABS: Alanine Aminotransferase 8 U/L (6-35); Albumin Level 3.3 g/dL (3.5-5.1); Alkaline Phosphatase 56 U/L (38-126); Anion Gap 8 mmol/L (4-12); Aspartate Amino Transferase 18 U/L (14-36); Bilirubin,Total 0.4 mg/dL (0.2-1.3); Blood Urea Nitrogen 13 mg/dL (7-17); Calcium 8.9 mg/dL (8.4-10.2); Carbon Dioxide 26 mmol/L (22-30); Chloride 101 mmol/L (98-107); Estimated CRCL calculation 53 ml/min; Estimated Glomerular Filt Rate > 60; Glucose 89 mg/dL (65-110); Potassium 4.3 mmol/L (3.4-5.0); Sodium 135 mmol/L (137-145)
[2023-12-24 08:35] VITALS: O2SAT 95
[2023-12-24] MEDS: SODIUM CHLORIDE 500 MG TABLET PO ×2 (11:05→17:16)
[2023-12-24] MEDS: ATORVASTATIN 40 MG TABLET 80 MG PO (11:05)
[2023-12-24] MEDS: ASPIRIN 81 MG ENTERIC TABLET PO (11:05)
[2023-12-24] MEDS: SODIUM CHLORIDE 1 GM TABLET PO ×2 (11:06→17:15)
[2023-12-24] MEDS: CLOPIDOGREL BISULFATE 75 MG TABLET PO (11:06)
[2023-12-24] MEDS: MIDODRINE HCL 2.5 MG TABLET 5 MG PO ×2 (11:06→17:15)
[2023-12-24] MEDS: busPIRone HCL 10 MG TABLET PO ×2 (11:06→17:16)
[2023-12-24] MEDS: buPROPion HCL XL (24 HR) 150 MG TABCR PO (11:06)
[2023-12-24] MEDS: FOLIC ACID 0.4 MG TABLET 0.8 MG PO (11:07)
[2023-12-24] MEDS: DIVALPROEX SODIUM ER 500 MG TAB.24H PO (11:08)
--- NOTE | 2023-12-24 11:15 | P.PNIM_ITS ---
Progress Note: A&P Assessment and Plan (1) Adult failure to thrive: Code(s): R62.7 - Adult failure to thrive Status: Chronic Assessment and Plan: --left [facility] about 1 week ago to live with family, progressively got weaker since that time. Family unable to care for her at home due to her progressive weakness. Patient is well known to our service at [facility]. She has had multiple admissions for FTT, muscular deconditioning, frequent falls, weakness, and malnutrition. * PT and OT ordered * Case coordination consulted for placement (2) Muscular deconditioning: Code(s): R29.898 - Other symptoms and signs involving the musculoskeletal system Status: Acute Assessment and Plan: see above plan of care #1 (3) Weakness: Code(s): R53.1 - Weakness Status: Acute Assessment and Plan: see above plan of care #1 (4) Frequent falls: Code(s): R29.6 - Repeated falls Status: Chronic Assessment and Plan: see above plan of care #1 (5) Malnutrition: Qualifiers: Malnutrition type: protein-calorie malnutrition Protein-calorie malnutrition severity: severe Qualified Code(s): E43 - Unspecified severe protein-calorie malnutrition Code(s): E46 - Unspecified protein-calorie malnutrition Status: Chronic Assessment and Plan: * Moderate protein calorie malnutrition * Continue Ensure clear TID * encourage po intake * continue megestrol for appetite * According to the EMR and last journey lineman note she has gained almost 14 pounds since March of this year (6) Bipolar disorder: Code(s): F31.9 - Bipolar disorder, unspecified Status: Chronic Assessment and Plan: * continue divalproex, BuSpar and trazodone (7) Hypothyroidism: Code(s): E03.9 - Hypothyroidism, unspecified Status: Chronic Assessment and Plan: * Continue Synthroid * TSH was 1.98 on 12/14/23 (8) Depression: Code(s): F32.9 - Major depressive disorder, single episode, unspecified Status: Chronic Assessment and Plan: * continue escitalopram (9) Hyperlipidemia: Code(s): E78.5 - Hyperlipidemia, unspecified Status: Chronic Assessment and Plan: * continue aspirin and atorvastatin Subjective Date/time seen: 12/24/23 11:15 Interval history: Very tired this morning. Denied pain or shortness of breath. Denied focal weakness. Admits to generalized weakness and severe fatigue. Review of Systems Review of Systems: All systems reviewed & are unremarkable except as noted in HPI and below Exam Narrative: HEENT: PERRL, sclerae nonicteric, pharyngeal mucosa pink and intact NECK: No JVD CHEST: Clear to auscultation. Normal effort. HEART: NL S1/S2, regular, 3/6 ZONIA RUSB to carotids, 3/6 systolic murmur at apex ABDOMEN: BS+, soft, nontender, no mass, no bruits EXTREMITIES: No cyanosis, edema, or clubbing NEUROLOGIC: CN intact and symmetric to inspection. MUSCULOSKELETAL: Tone and strength symmetric with generalized weakness PSYCH: Drowsy but arouses easily. Pleasant and cooperative. Objective Data Vital Signs Vital Signs: Vital Signs - 24 hr 12/23/23 11:29 12/23/23 11:30 12/23/23 11:31 Temperature Pulse Rate 71 74 73 Respiratory Rate 19 20 18 Blood Pressure 95/72 L Pulse Oximetry 95 93 94 Oxygen Delivery Fraction of Inspired Oxygen 12/23/23 11:45 12/23/23 11:46 12/23/23 12:00 Temperature Pulse Rate 74 74 68 Respiratory Rate 15 18 22 H Blood Pressure 105/76 Pulse Oximetry 93 93 92 Oxygen Delivery Fraction of Inspired Oxygen 12/23/23 12:01 12/23/23 12:39 12/23/23 12:46 Temperature Pulse Rate 79 73 74 Respiratory Rate 20 18 20 Blood Pressure 103/62 118/62 153/67 H Pulse Oximetry 94 91 92 Oxygen Delivery Fraction of Inspired Oxygen 12/23/23 13:00 12/23/23 13:01 12/23/23 13:16 Temperature Pulse Rate 79 72 69 Respiratory Rate 20 20 18 Blood Pressure 137/79 Pulse Oximetry 92 93 93 Oxygen Delivery Fraction of Inspired Oxygen 12/23/23 13:23 12/23/23 13:30 12/23/23 13:31 Temperature Pulse Rate 74 73 72 Respiratory Rate 20 20 20 Blood Pressure 144/76 H 136/66 Pulse Oximetry 94 93 91 Oxygen Delivery Fraction of Inspired Oxygen 12/23/23 13:45 12/23/23 13:46 12/23/23 14:00 Temperature Pulse Rate 83 75 83 Respiratory Rate 20 20 18 Blood Pressure 120/78 Pulse Oximetry 95 92 96 Oxygen Delivery Fraction of Inspired Oxygen 12/23/23 14:01 12/23/23 14:02 12/23/23 14:15 Temperature Pulse Rate 79 80 72 Respiratory Rate 15 19 21 H Blood Pressure 134/73 Pulse Oximetry 92 Oxygen Delivery Fraction of Inspired Oxygen 12/23/23 14:16 12/23/23 14:30 12/23/23 14:31 Temperature Pulse Rate 71 69 72 Respiratory Rate 20 20 20 Blood Pressure 153/64 H 157/63 H Pulse Oximetry 94 95 Oxygen Delivery Fraction of Inspired Oxygen 12/23/23 14:45 12/23/23 14:46 12/23/23 15:00 Temperature Pulse Rate 76 74 71 Respiratory Rate 16 21 H 17 Blood Pressure 112/83 Pulse Oximetry 94 Oxygen Delivery Fraction of Inspired Oxygen 12/23/23 15:01 12/23/23 16:00 12/23/23 16:30 Temperature 97.7 F Pulse Rate 73 71 Respiratory Rate 20 18 Blood Pressure 136/82 104/79 Pulse Oximetry 94 100 Oxygen Delivery Room Air Fraction of Inspired Oxygen 12/23/23 22:28 12/23/23 20:00 12/24/23 00:10 Temperature 99.1 F 98.2 F Pulse Rate 83 83 79 Respiratory Rate 18 18 16 Blood Pressure 147/68 H 170/58 H Pulse Oximetry 100 100 92 Oxygen Delivery Room Air Fraction of Inspired Oxygen 12/24/23 05:45 12/24/23 08:35 12/24/23 09:56 Temperature 98.2 F Pulse Rate 86 Respiratory Rate 16 Blood Pressure 123/60 Pulse Oximetry 93 95 Oxygen Delivery Room Air Room Air Fraction of Inspired Oxygen 21 Intake/Output Intake/Output: Intake & Output 12/21/23 12/22/23 12/23/23 12/24/23 23:59 23:59 23:59 23:59 Intake Total 100 240 Output Total 50 Balance 100 190 Meds/Results Medications: Active Medications Generic Name Dose Route Start Last Admin Trade Name Freq PRN Reason Stop Dose Admin Acetaminophen 650 mg 12/23/23 15:42 12/23/23 20:53 Acetaminophen 325 Mg Tablet PO 650 mg Q4H PRN Administration Mild Pain (1-3) or Fever Aspirin 81 mg 12/24/23 09:00 12/24/23 11:05 Aspirin 81 Mg Enteric Tablet PO 81 mg QAM MINH Administration Atorvastatin Calcium 80 mg 12/24/23 09:00 12/24/23 11:05 Atorvastatin 40 Mg Tablet PO 80 mg DAILY MINH Administration Bupropion HCl 150 mg 12/24/23 09:00 12/24/23 11:06 Bupropion Hcl Xl (24 Hr) 150 Mg Tabcr PO 150 mg DAILY MINH Administration Buspirone HCl 10 mg 12/24/23 09:00 12/24/23 11:06 Buspirone Hcl 10 Mg Tablet PO 10 mg BID MINH Administration Clopidogrel Bisulfate 75 mg 12/24/23 09:00 12/24/23 11:06 Clopidogrel Bisulfate 75 Mg Tablet PO 75 mg DAILY MINH Administration Dextrose 12.5 gm 12/23/23 15:45 Dextrose 50% 25 Gm/50 Ml Syringe IV PUSH PRN PRN Hypoglycemia Protocol Divalproex Sodium 1,000 mg 12/23/23 21:00 12/23/23 20:53 Divalproex Sodium Er 500 Mg Tab.24h PO 1,000 mg HS MINH Administration Divalproex Sodium 500 mg 12/24/23 09:00 12/24/23 11:08 Divalproex Sodium Er 500 Mg Tab.24h PO 500 mg QAM MINH Administration Escitalopram Oxalate 10 mg 12/23/23 21:00 12/23/23 20:53 Escitalopram Oxalate 10 Mg Tablet PO 10 mg HS MINH Administration Folic Acid 0.8 mg 12/24/23 09:00 12/24/23 11:07 Folic Acid 0.4 Mg Tablet PO 0.8 mg QAM MINH Administration Gabapentin 100 mg 12/23/23 22:00 12/24/23 06:02 Gabapentin 100 Mg Capsule PO 100 mg Q8HR MINH Administration Glucagon 1 mg 12/23/23 15:45 Glucagon For Inj 1 Mg Vial IM PRN PRN Hypoglycemia Protocol Glucose 15 gm 12/23/23 15:45 Glucose Oral Gel 15 Gm Of Glucse In 37.5 Gm Tube PO PRN PRN Hypoglycemia Protocol Dextrose 1,000 mls @ 100 mls/hr 12/23/23 15:45 Dextrose 5% 1,000 Ml IVPB PRN PRN Hypoglycemia Protocol Levothyroxine Sodium 75 mcg 12/24/23 06:30 12/24/23 06:02 Levothyroxine Sodium 75 Mcg Tablet PO 75 mcg DAILY@0630 MINH Administration Megestrol Acetate 40 mg 12/23/23 19:25 Megestrol Acetate (*Chemo) 40 Mg Tablet PO QID PRN loss of appetite Midodrine 5 mg 12/24/23 09:00 12/24/23 11:06 Midodrine Hcl 2.5 Mg Tablet PO 5 mg TID MINH Administration Ondansetron HCl 4 mg 12/23/23 14:33 Ondansetron Inj 4 Mg/2 Ml Vial IV PUSH Q4H PRN Nausea Sodium Chloride 1 gm 12/24/23 09:00 12/24/23 11:06 Sodium Chloride 1 Gm Tablet PO 1 gm BID MINH Administration Sodium Chloride 500 mg 12/24/23 09:00 12/24/23 11:05 Sodium Chloride 500 Mg Tablet PO 500 mg BID MINH Administration Trazodone HCl 100 mg 12/23/23 21:00 12/23/23 20:53 Trazodone Hcl 50 Mg Tablet PO 100 mg QHS MINH Administration Radiology Results: ITS Impressions Head CT 12/23/23 12:18 IMPRESSION: 1. Normal aging brain. Cervical Spine CT 12/23/23 12:23 IMPRESSION: 1. No fracture. 2. Severe cervical spondylosis. Hip/Pelvis X-Ray 12/23/23 12:30 IMPRESSION: 1. Mild osteoarthritis of the hips. Knee X-Ray 12/23/23 12:31 IMPRESSION: 1. Normal left knee. Chest X-Ray 12/23/23 12:36 IMPRESSION: 1. No acute cardiopulmonary disease. Abdomen/Pelvis CT 12/23/23 13:16 IMPRESSION: 1. 2 mm nonobstructing left kidney stone. 2. 3.0 cm fusiform aneurysm of infrarenal aorta. Labs Labs: Laboratory Results - last 24 hr 12/23/23 12/23/23 12/23/23 11:28 11:41 14:04 WBC 12.2 H RBC 3.93 L Hgb 12.1 Hct 38.5 MCV 98.0 MCH 30.8 MCHC 31.4 L RDW 14.6 H Plt Count 223 MPV 9.8 Immature Gran % (Auto) 0.8 H Neut % (Auto) 65.4 Lymph % (Auto) 20.7 [place] % (Auto) 11.6 H Eos % (Auto) 1.0 Baso % (Auto) 0.5 Lymph # (Auto) 2.51 [place] # (Auto) 1.4 H Eos # (Auto) 0.1 Baso # (Auto) 0.1 Abs Immat Gran (auto) 0.10 H Absolute Neuts (auto) 8.0 H Absolute Nucleated RBC 0.000 Nucleated RBC % 0.0 APTT 25.2 Puncture Site Right brachial ABG pH 7.439 ABG pCO2 39.7 ABG pO2 77.0 L ABG PO2/FiO2 Ratio 3.67 ABG HCO3 26.3 H ABG O2 Saturation 95.8 ABG O2 Content 16.4 ABG Base Excess 2.1 A-a Gradient 25.2 Oxyhemoglobin 93.6 Carboxyhemoglobin 0.7 Methemoglobin 0.3 Reduced Hemoglobin 5.4 H Total Hemoglobin 12.4 O2 Delivery Device Room air O2 Liters/Min Not Reportable FiO2 21 Sodium 135 L Potassium 4.8 Chloride 100 Carbon Dioxide 27 Anion Gap 8 BUN 16 Creatinine 0.60 L Estim Creat Clear Calc 61 Estimated GFR > 60 Glucose 75 Calcium 9.0 Magnesium 2.3 Total Bilirubin 0.5 AST 20 ALT 9 Alkaline Phosphatase 55 Total Protein 7.0 Albumin 3.2 L Urine Color Yellow Urine Appearance Clear Urine pH 6.5 Ur Specific [place] 1.020 Urine Protein Negative Urine Glucose (UA) Negative Urine Ketones Trace H Ur Blood (Man) Negative Urine Nitrate Negative Urine Bilirubin Negative Urine Urobilinogen 1.0 Add Ur Microanalysis Reviewed Leukocyte Esterase Rfl Trace H Urine RBC 3-5 H Urine WBC 0-5 Ur Squamous Epith Cells None seen Urine Bacteria None seen Urine Casts 0-2 Urine Opiates Screen Negative Urine Methadone Screen Negative Ur Barbiturates Screen Negative Ur Phencyclidine Scrn Negative Ur Amphetamine Screen Negative U Benzodiazepines Scrn Negative Urine Cocaine Screen Negative U Cannabinoids Screen Negative Ethyl Alcohol < 10 12/24/23 06:04 WBC 13.6 H RBC 4.14 L Hgb 12.8 Hct 40.5 MCV 97.8 MCH 30.9 MCHC 31.6 L RDW 14.6 H Plt Count 245 MPV 9.7 Immature Gran % (Auto) 0.6 H Neut % (Auto) 74.5 H Lymph % (Auto) 15.8 L [place] % (Auto) 7.5 Eos % (Auto) 0.9 Baso % (Auto) 0.7 Lymph # (Auto) 2.14 [place] # (Auto) 1.0 H Eos # (Auto) 0.1 Baso # (Auto) 0.1 Abs Immat Gran (auto) 0.08 H Absolute Neuts (auto) 10.1 H Absolute Nucleated RBC 0.000 Nucleated RBC % 0.0 APTT Puncture Site ABG pH ABG pCO2 ABG pO2 ABG PO2/FiO2 Ratio ABG HCO3 ABG O2 Saturation ABG O2 Content ABG Base Excess A-a Gradient Oxyhemoglobin Carboxyhemoglobin Methemoglobin Reduced Hemoglobin Total Hemoglobin O2 Delivery Device O2 Liters/Min FiO2 Sodium 135 L Potassium 4.3 Chloride 101 Carbon Dioxide 26 Anion Gap 8 BUN 13 Creatinine 0.70 Estim Creat Clear Calc 53 Estimated GFR > 60 Glucose 89 Calcium 8.9 Magnesium Total Bilirubin 0.4 AST 18 ALT 8 Alkaline Phosphatase 56 Total Protein 7.0 Albumin 3.3 L Urine Color Urine Appearance Urine pH Ur Specific [place] Urine Protein Urine Glucose (UA) Urine Ketones Ur Blood (Man) Urine Nitrate Urine Bilirubin Urine Urobilinogen Add Ur Microanalysis Leukocyte Esterase Rfl Urine RBC Urine WBC Ur Squamous Epith Cells Urine Bacteria Urine Casts Urine Opiates Screen Urine Methadone Screen Ur Barbiturates Screen Ur Phencyclidine Scrn Ur Amphetamine Screen U Benzodiazepines Scrn Urine Cocaine Screen U Cannabinoids Screen Ethyl Alcohol
[2023-12-24 12:56] LABS: Alveolar/Arterial O2 Gradient 24.5 mmHg; Base Excess ABG -0.3 mEq/l (+/-2.0); Fractional Inspired Oxygen 21 %; Oxygen Content ABG 17.9 %vol (16.0-22.0); Oxygen Saturation ABG 95.9 % (95.0-100.0); Oxyhemoglobin 94.7 % THb (90.0-100.0); PCO2 ABG 38.3 mmHg (35.0-45.0); PO2 ABG 79.4 mmHg (80.0-100.0); PO2 FiO2 Ratio Arterial Blood 3.78 %; Total Hemoglobin 13.4 g/dL (12.0-18.0); pH ABG 7.415 (7.350-7.450)
[2023-12-24 12:57] LABS: Device ROOM AIR; Site Drawn RIGHT BRACHIAL
--- NOTE | 2023-12-24 13:09 | PC.NURSE ---
Spoke to lost charge card clerk regarding continued concern for patient's lethargy. Per PCT, patient was awake, able to feed themselves, and hold a conversation. Patient is unable to do that today. nuclear equipment research engineer Maria E spoke with provider. Orders received.
[2023-12-24 14:00] VITALS: BP 112/75; PULSE 85; RESP 20; TEMP 36.6; O2SAT 99
[2023-12-24 20:00] VITALS: PULSE 85; RESP 20; O2SAT 99
[2023-12-24] MEDS: ACETAMINOPHEN 325 MG TABLET 650 MG PO (20:38)
[2023-12-24] MEDS: traZODone HCL 50 MG TABLET 100 MG PO (20:38)
[2023-12-24] MEDS: ESCITALOPRAM OXALATE 10 MG TABLET PO (20:39)
[2023-12-24] MEDS: DIVALPROEX SODIUM ER 500 MG TAB.24H 1000 MG PO (20:39)
[2023-12-25] VITALS: BP 127/71; PULSE 71; RESP 16; TEMP 36.8; O2SAT 100
[2023-12-25 00:09] VITALS: BP 136/62; PULSE 77; RESP 16; TEMP 36.7; O2SAT 97
[2023-12-25 05:05] VITALS: BP 104/52; PULSE 74; RESP 16; TEMP 36.6; O2SAT 93
[2023-12-25 06:19] LABS: Basophils Absolute Auto 0.1 K/mm3 (0.0-0.1); Basophils Percent Auto 0.6 % (0.2-1.2); Eosinophils Absolute Auto 0.1 K/mm3 (0-0.3); Eosinophils Percent Auto 0.4 % (0-4.4); Hematocrit 39.7 % (37.0-47.0); Hemoglobin 12.6 g/dL (12.0-15.0); Immature Granulocyte Absolute 0.05 K/mm3 (0.00-0.031); Immature Granulocyte Percent A 0.4 % (0-0.5); Lymphocytes Absolute Auto 1.71 K/mm3 (0.9-3.2); Lymphocytes Percent Auto 13.7 % (18.3-44.2); Mean Corpuscular HGB Conc 31.7 g/dl (32-36); Mean Corpuscular Hemoglobin 31.3 pg (26-34); Mean Corpuscular Volume 98.5 fl (80-100); Mean Platelet Volume 9.9 fl (7.4-10.4); Monocytes Absolute Auto 1.1 K/mm3 (0.1-0.6); Monocytes Percent Auto 8.4 % (2.6-8.5); Neutrophils Absolute Auto 9.5 K/mm3 (1.3-6.7); Neutrophils Percent Auto 76.5 % (45.5-73.1); Platelet Count Result 231 k/mm3 (150-375); Red Blood Count 4.03 M/mm3 (4.2-5.4); Red Cell Distribution Width 14.5 % (11.5-14.5); White Blood Count 12.4 K/mm3 (4.5-10.0)
[2023-12-25 06:28] LABS: Alanine Aminotransferase 7 U/L (6-35); Albumin Level 3.2 g/dL (3.5-5.1); Alkaline Phosphatase 59 U/L (38-126); Anion Gap 5 mmol/L (4-12); Aspartate Amino Transferase 14 U/L (14-36); Bilirubin,Total 0.4 mg/dL (0.2-1.3); Blood Urea Nitrogen 11 mg/dL (7-17); Calcium 8.9 mg/dL (8.4-10.2); Carbon Dioxide 31 mmol/L (22-30); Chloride 99 mmol/L (98-107); Estimated CRCL calculation 61 ml/min; Estimated Glomerular Filt Rate > 60; Glucose 89 mg/dL (65-110); Potassium 3.5 mmol/L (3.4-5.0); Sodium 135 mmol/L (137-145)
[2023-12-25] MEDS: LEVOTHYROXINE SODIUM 75 MCG TABLET PO (06:39)
[2023-12-25] MEDS: GABAPENTIN 100 MG CAPSULE PO ×3 (06:39→20:42)
--- NOTE | 2023-12-25 08:20 | P.PNIM_ITS ---
Progress Note: A&P Assessment and Plan (1) Adult failure to thrive: Code(s): R62.7 - Adult failure to thrive Status: Chronic Plan Altered mental status Dementia versus acute encephalopathy Patient is alert, not oriented x3, on no baseline of mental status. Patient has no focal weakness, CT head shows no acute intracranial issue, normal aging brain Follow-up brain MRI with without contrast Adult failure to thrive: Code(s): R62.7 - Adult failure to thrive Status: Chronic Assessment and Plan: --left [facility] about 1 week ago to live with family, progressively got weaker since that time. Family unable to care for her at home due to her progressive weakness. Patient is well known to our service at [facility]. She has had multiple admissions for FTT, muscular deconditioning, frequent falls, weakness, and malnutrition. * PT and OT ordered * Case coordination consulted for placement Physical deconditioning Patient has a general weakness, muscle weakness, a frequent fall Resulting from aging, adult failure to thrive and man nutrition Consult PT OT early breastfeeding care specialist for his evaluation system placement Address underlying problems Hyponatremia Upon arrival, sodium 129 below the baseline 136 December 02 Possible due to E adequate oral intake and inadequate electrolyte intake Received normal saline Partially corrected Malnutrition: Qualifiers: Malnutrition type: protein-calorie malnutrition Protein-calorie malnutrition severity: severe Qualified Code(s): E43 - Unspecified severe protein-calorie malnutrition Code(s): E46 - Unspecified protein-calorie malnutrition Status: Chronic Assessment and Plan: * Moderate protein calorie malnutrition * Continue Ensure clear TID * encourage po intake * continue megestrol for appetite * According to the EMR and last benefits specialist note she has gained almost 14 pounds since March of this year * (6) Bipolar disorder: Code(s): F31.9 - Bipolar disorder, unspecified Status: Chronic Assessment and Plan: * continue divalproex, BuSpar and trazodone(7) Hypothyroidism: Code(s): E03.9 - Hypothyroidism, unspecified Status: Chronic Assessment and Plan: * Continue Synthroid * TSH was 1.98 on 12/14/23(8) Depression: Code(s): F32.9 - Major depressive disorder, single episode, unspecified Status: Chronic Assessment and Plan: * continue escitalopram(9) Hyperlipidemia: Code(s): E78.5 - Hyperlipidemia, unspecified Status: Chronic Assessment and Plan: * continue aspirin and atorvastatin * Consult PT OT early breastfeeding care specialist for evaluation and assisting placement Subjective Date/time seen: 12/25/23 08:20 Interval history: Patient is afebrile, blood pressure stable on the lower side, no O2 desaturation on room air, labs reviewed, patient is alert, able to engage in conversation, not oriented x3, cannot provide reliable history. Patient does not have obvious distress Exam Narrative: GENERAL: Pleasant, in no acute distress. Well-nourished. - EYES: EOMI. Anicteric. - HENT: Moist mucous membranes. - LUNGS: Clear to auscultation bilateral ly, no wheezing, rhonchi, or rales. - CARDIOVASCULAR: Regular rate and rhyth m. No murmur. No JVD. - ABDOMEN: Soft, non-tender and non-dist ended. No palpable masses. - EXTREMITIES: No edema. Peripheral puls es 2+. Non-tender. - NEUROLOGIC: No focal neurological defi cits. CN II-XII grossly intact. - PSYCHIATRIC: Awake, not oriented x 3. Appropriate mood and affect. - SKIN: No rashes or lesions. Warm. - LYMPH: No cervical lymphadenopathy. Objective Data Vital Signs Vital Signs: Vital Signs - 24 hr 12/24/23 08:35 12/24/23 09:56 12/24/23 09:49 Temperature Pulse Rate Respiratory Rate Blood Pressure Pulse Oximetry 95 Oxygen Delivery Room Air Room Air Room Air Fraction of Inspired Oxygen 12/24/23 14:00 12/24/23 20:00 12/25/23 00:00 Temperature 97.9 F 98.2 F Pulse Rate 85 85 71 Respiratory Rate 20 20 16 Blood Pressure 112/75 127/71 Pulse Oximetry 99 99 100 Oxygen Delivery Room Air Fraction of Inspired Oxygen 12/25/23 00:09 12/25/23 05:05 Temperature 98.0 F 97.9 F Pulse Rate 77 74 Respiratory Rate 16 16 Blood Pressure 136/62 104/52 L Pulse Oximetry 97 93 Oxygen Delivery Fraction of Inspired Oxygen Intake/Output Intake/Output: Intake & Output 12/22/23 12/23/23 12/24/23 12/25/23 23:59 23:59 23:59 23:59 Intake Total 100 800 200 Output Total 350 200 Balance 100 450 0 Meds/Results Medications: Active Medications Generic Name Dose Route Start Last Admin Trade Name Freq PRN Reason Stop Dose Admin Acetaminophen 650 mg 12/23/23 15:42 12/24/23 20:38 Acetaminophen 325 Mg Tablet PO 650 mg Q4H PRN Administration Mild Pain (1-3) or Fever Aspirin 81 mg 12/24/23 09:00 12/24/23 11:05 Aspirin 81 Mg Enteric Tablet PO 81 mg QAM MINH Administration Atorvastatin Calcium 80 mg 12/24/23 09:00 12/24/23 11:05 Atorvastatin 40 Mg Tablet PO 80 mg DAILY MINH Administration Bupropion HCl 150 mg 12/24/23 09:00 12/24/23 11:06 Bupropion Hcl Xl (24 Hr) 150 Mg Tabcr PO 150 mg DAILY MINH Administration Buspirone HCl 10 mg 12/24/23 09:00 12/24/23 17:16 Buspirone Hcl 10 Mg Tablet PO 10 mg BID MINH Administration Clopidogrel Bisulfate 75 mg 12/24/23 09:00 12/24/23 11:06 Clopidogrel Bisulfate 75 Mg Tablet PO 75 mg DAILY MINH Administration Dextrose 12.5 gm 12/23/23 15:45 Dextrose 50% 25 Gm/50 Ml Syringe IV PUSH PRN PRN Hypoglycemia Protocol Divalproex Sodium 1,000 mg 12/23/23 21:00 12/24/23 20:39 Divalproex Sodium Er 500 Mg Tab.24h PO 1,000 mg HS MINH Administration Divalproex Sodium 500 mg 12/24/23 09:00 12/24/23 11:08 Divalproex Sodium Er 500 Mg Tab.24h PO 500 mg QAM MINH Administration Escitalopram Oxalate 10 mg 12/23/23 21:00 12/24/23 20:39 Escitalopram Oxalate 10 Mg Tablet PO 10 mg HS MINH Administration Folic Acid 0.8 mg 12/24/23 09:00 12/24/23 11:07 Folic Acid 0.4 Mg Tablet PO 0.8 mg QAM MINH Administration Gabapentin 100 mg 12/23/23 22:00 12/25/23 06:39 Gabapentin 100 Mg Capsule PO 100 mg Q8HR MINH Administration Glucagon 1 mg 12/23/23 15:45 Glucagon For Inj 1 Mg Vial IM PRN PRN Hypoglycemia Protocol Glucose 15 gm 12/23/23 15:45 Glucose Oral Gel 15 Gm Of Glucse In 37.5 Gm Tube PO PRN PRN Hypoglycemia Protocol Dextrose 1,000 mls @ 100 mls/hr 12/23/23 15:45 Dextrose 5% 1,000 Ml IVPB PRN PRN Hypoglycemia Protocol Levothyroxine Sodium 75 mcg 12/24/23 06:30 12/25/23 06:39 Levothyroxine Sodium 75 Mcg Tablet PO 75 mcg DAILY@0630 MINH Administration Megestrol Acetate 40 mg 12/23/23 19:25 Megestrol Acetate (*Chemo) 40 Mg Tablet PO QID PRN loss of appetite Midodrine 5 mg 12/24/23 09:00 12/24/23 17:15 Midodrine Hcl 2.5 Mg Tablet PO 5 mg TID MINH Administration Ondansetron HCl 4 mg 12/23/23 14:33 Ondansetron Inj 4 Mg/2 Ml Vial IV PUSH Q4H PRN Nausea Sodium Chloride 1 gm 12/24/23 09:00 12/24/23 17:15 Sodium Chloride 1 Gm Tablet PO 1 gm BID MINH Administration Sodium Chloride 500 mg 12/24/23 09:00 12/24/23 17:16 Sodium Chloride 500 Mg Tablet PO 500 mg BID MINH Administration Trazodone HCl 100 mg 12/23/23 21:00 12/24/23 20:38 Trazodone Hcl 50 Mg Tablet PO 100 mg QHS MINH Administration Radiology Results: ITS Impressions Cervical Spine CT 12/23/23 12:23 IMPRESSION: 1. No fracture. 2. Severe cervical spondylosis. Hip/Pelvis X-Ray 12/23/23 12:30 IMPRESSION: 1. Mild osteoarthritis of the hips. Knee X-Ray 12/23/23 12:31 IMPRESSION: 1. Normal left knee. Chest X-Ray 12/23/23 12:36 IMPRESSION: 1. No acute cardiopulmonary disease. Abdomen/Pelvis CT 12/23/23 13:16 IMPRESSION: 1. 2 mm nonobstructing left kidney stone. 2. 3.0 cm fusiform aneurysm of infrarenal aorta. Head CT 12/24/23 13:21 IMPRESSION: 1. Normal aging brain. Labs Labs: Laboratory Results - last 24 hr 12/24/23 12/25/23 12:51 05:48 WBC 12.4 H RBC 4.03 L Hgb 12.6 Hct 39.7 MCV 98.5 MCH 31.3 MCHC 31.7 L RDW 14.5 Plt Count 231 MPV 9.9 Immature Gran % (Auto) 0.4 Neut % (Auto) 76.5 H Lymph % (Auto) 13.7 L [place] % (Auto) 8.4 Eos % (Auto) 0.4 Baso % (Auto) 0.6 Lymph # (Auto) 1.71 [place] # (Auto) 1.1 H Eos # (Auto) 0.1 Baso # (Auto) 0.1 Abs Immat Gran (auto) 0.05 H Absolute Neuts (auto) 9.5 H Absolute Nucleated RBC 0.000 Nucleated RBC % 0.0 Puncture Site Right brachial ABG pH 7.415 ABG pCO2 38.3 ABG pO2 79.4 L ABG PO2/FiO2 Ratio 3.78 ABG HCO3 24.0 ABG O2 Saturation 95.9 ABG O2 Content 17.9 ABG Base Excess -0.3 A-a Gradient 24.5 Oxyhemoglobin 94.7 Total Hemoglobin 13.4 O2 Delivery Device Room air O2 Liters/Min Not Reportable FiO2 21 Sodium 135 L Potassium 3.5 Chloride 99 Carbon Dioxide 31 H Anion Gap 5 BUN 11 Creatinine 0.60 L Estim Creat Clear Calc 61 Estimated GFR > 60 Glucose 89 Calcium 8.9 Total Bilirubin 0.4 AST 14 ALT 7 Alkaline Phosphatase 59 Total Protein 7.0 Albumin 3.2 L
[2023-12-25] MEDS: buPROPion HCL XL (24 HR) 150 MG TABCR PO (10:23)
[2023-12-25] MEDS: ATORVASTATIN 40 MG TABLET 80 MG PO (10:23)
[2023-12-25] MEDS: ASPIRIN 81 MG ENTERIC TABLET PO (10:24)
[2023-12-25] MEDS: busPIRone HCL 10 MG TABLET PO ×2 (10:24→18:17)
[2023-12-25] MEDS: FOLIC ACID 0.4 MG TABLET 0.8 MG PO (10:24)
[2023-12-25] MEDS: SODIUM CHLORIDE 1 GM TABLET PO ×2 (10:24→18:18)
[2023-12-25] MEDS: DIVALPROEX SODIUM ER 500 MG TAB.24H PO (10:24)
[2023-12-25] MEDS: CLOPIDOGREL BISULFATE 75 MG TABLET PO (10:24)
[2023-12-25] MEDS: SODIUM CHLORIDE 500 MG TABLET PO ×2 (10:24→18:18)
[2023-12-25] MEDS: MIDODRINE HCL 2.5 MG TABLET 5 MG PO ×3 (10:24→18:18)
--- NOTE | 2023-12-25 12:57 | PCPTNOTE ---
Attempted to see patient for PT, however patient was leaving room for testing.
[2023-12-25 13:20] VITALS: BMI 22.5
[2023-12-25 14:00] VITALS: BP 126/57; PULSE 55; RESP 12; TEMP 36.6; O2SAT 94
[2023-12-25 19:59] VITALS: BP 143/66; PULSE 78; RESP 18; TEMP 36.8; O2SAT 95
[2023-12-25 20:00] VITALS: PULSE 78; RESP 18; O2SAT 95
[2023-12-25] MEDS: DIVALPROEX SODIUM ER 500 MG TAB.24H 1000 MG PO (20:41)
[2023-12-25] MEDS: ESCITALOPRAM OXALATE 10 MG TABLET PO (20:42)
[2023-12-25] MEDS: ACETAMINOPHEN 325 MG TABLET 650 MG PO (20:42)
[2023-12-26] VITALS (8 sets, daily range): BP systolic 124–147; BP diastolic 62–100; PULSE 68–84; RESP 18–24; TEMP 36.3–36.7; O2SAT 92–100
[2023-12-26] MEDS: LEVOTHYROXINE SODIUM 75 MCG TABLET PO (05:11)
[2023-12-26] MEDS: GABAPENTIN 100 MG CAPSULE PO ×3 (05:11→20:13)
[2023-12-26 06:20] LABS: Basophils Absolute Auto 0.1 K/mm3 (0.0-0.1); Basophils Percent Auto 0.8 % (0.2-1.2); Eosinophils Absolute Auto 0.1 K/mm3 (0-0.3); Eosinophils Percent Auto 1.2 % (0-4.4); Hematocrit 37.4 % (37.0-47.0); Hemoglobin 12.1 g/dL (12.0-15.0); Immature Granulocyte Absolute 0.06 K/mm3 (0.00-0.031); Immature Granulocyte Percent A 0.5 % (0-0.5); Lymphocytes Percent Auto 22.5 % (18.3-44.2); Mean Corpuscular HGB Conc 32.4 g/dl (32-36); Mean Corpuscular Hemoglobin 31.7 pg (26-34); Mean Corpuscular Volume 97.9 fl (80-100); Mean Platelet Volume 9.7 fl (7.4-10.4); Monocytes Absolute Auto 0.9 K/mm3 (0.1-0.6); Monocytes Percent Auto 7.5 % (2.6-8.5); Neutrophils Absolute Auto 7.8 K/mm3 (1.3-6.7); Neutrophils Percent Auto 67.5 % (45.5-73.1); Platelet Count Result 218 k/mm3 (150-375); Red Blood Count 3.82 M/mm3 (4.2-5.4); Red Cell Distribution Width 14.4 % (11.5-14.5); White Blood Count 11.6 K/mm3 (4.5-10.0)
[2023-12-26 06:37] LABS: Alanine Aminotransferase 7 U/L (6-35); Albumin Level 3.2 g/dL (3.5-5.1); Alkaline Phosphatase 62 U/L (38-126); Anion Gap 8 mmol/L (4-12); Aspartate Amino Transferase 15 U/L (14-36); Bilirubin,Total 0.3 mg/dL (0.2-1.3); Blood Urea Nitrogen 12 mg/dL (7-17); Calcium 9.2 mg/dL (8.4-10.2); Carbon Dioxide 30 mmol/L (22-30); Chloride 101 mmol/L (98-107); Estimated CRCL calculation 58 ml/min; Estimated Glomerular Filt Rate > 60; Glucose 87 mg/dL (65-110); Potassium 3.6 mmol/L (3.4-5.0); Sodium 139 mmol/L (137-145)
[2023-12-26] MEDS: MIDODRINE HCL 2.5 MG TABLET 5 MG PO ×3 (09:50→16:50)
[2023-12-26] MEDS: ASPIRIN 81 MG ENTERIC TABLET PO (09:50)
[2023-12-26] MEDS: CLOPIDOGREL BISULFATE 75 MG TABLET PO (09:50)
[2023-12-26] MEDS: buPROPion HCL XL (24 HR) 150 MG TABCR PO (09:50)
[2023-12-26] MEDS: SODIUM CHLORIDE 500 MG TABLET PO ×2 (09:50→16:50)
[2023-12-26] MEDS: FOLIC ACID 0.4 MG TABLET 0.8 MG PO (09:50)
[2023-12-26] MEDS: DIVALPROEX SODIUM ER 500 MG TAB.24H PO (09:50)
[2023-12-26] MEDS: busPIRone HCL 10 MG TABLET PO ×2 (09:50→16:50)
[2023-12-26] MEDS: ATORVASTATIN 40 MG TABLET 80 MG PO (09:51)
[2023-12-26] MEDS: SODIUM CHLORIDE 1 GM TABLET PO ×2 (09:51→16:50)
[2023-12-26] MEDS: ALBUTEROL SULFATE NEB 2.5 MG/3 ML INH INHALATION (11:58)
--- NOTE | 2023-12-26 12:43 | P.CONNEU_ITS ---
Assessment and Plan Assessment and plan (1) Bipolar disorder: Code(s): F31.9 - Bipolar disorder, unspecified Status: Chronic (2) Adult failure to thrive: Code(s): R62.7 - Adult failure to thrive Status: Acute (3) Ascending aortic aneurysm: Code(s): I71.2 - Thoracic aortic aneurysm, without rupture Status: Acute (4) Requires assistance with activities of daily living (ADL): Code(s): Z74.1 - Need for assistance with personal care Status: Acute (5) Frequent falls: Code(s): R29.6 - Repeated falls Status: Chronic Plan 1. Dementia 2. Failure to thrive 3. No evidence of epidural or subdural or hydrocephalus 4. Will benefit from supportive nutritional and physical therapy Consult date: 12/26/23 HPI: Maritza Noriega is a 68 year old female admitted to the hospital through the emergency room with history of fall because of generalized weakness resulting in the left lower extremity pain at the time of initial evaluation in the ER she was oriented to person and place was not specifically complaining of any size problem and was recently discharged from [facility] with her daughter patient was complaining of left hip pain in addition she has been taking multiple medications which particularly included the cytology pram 10mg daily, BuSpar 10mg twice a day, clopidogrel 75mg daily, divalproex 1500mg daily in 2 divided dosages. She has ongoing history of bipolar disorder in addition to congestive heart failure and ascending aortic aneurysm pertinent investigation in the ER included CBC with documentation of mild leukocytosis and mild anemia normal electrolytes normal UA negative toxicology screen and negative CT scan of the brain Also MRI today has documented no abnormalities he has had documented negative CT scan of the head for fracture dislocation though obvious documentation of severe cervical spondylosis it was documented that she has 3.0cm fusiform aneurysm of infrarenal aorta on the abdominal and pelvic CT scan. [facility] Past Medical History Medical History Ascending aortic aneurysm Bipolar disorder Cataracts, bilateral CHF (congestive heart failure) Depression Dysuria Hyperlipidemia Hypothyroidism Left shoulder pain Malnutrition Muscular deconditioning On valproic acid therapy Peripheral vascular disease Seasonal allergies Tobacco abuse Surgical History Surgical History History of carpal tunnel surgery Family History Family History Other Unknown family medical history Social History Social History Smoking packs per day: 1 Smoking cigarettes per day: 20.0 Years smoked: 10 Smoking pack-years: 10.00 Smoking status: Former smoker Alcohol intake: never Substance use: never Substance use type: does not use Do You Feel Safe in your Home?: Yes Lack of Transportation: No Lack of Food: Never True Current Housing: I Do Not Have Housing Concerned About Future Housing: No Difficulty Paying Gas/Electric Bills: No Difficulty Paying for Meds: No Currently Unemployed: No Education: Grade School Difficulty w/ Childcare or Family Care: No Living arrangements: with family Additional living arrangements comments: . 3 adult children. Spiritual care concerns: No Meds Home Medications and Allergies Home Medications Medication Instructions Recorded Confirmed Type divalproex 500 mg tablet,extended 1,000 mg PO HS 03/17/23 12/23/23 History release 24 hr levothyroxine 75 mcg tablet 75 mcg PO QAM 03/17/23 12/23/23 History acetaminophen 325 mg tablet 650 mg PO Q8H PRN Mild Pain (1-3) 03/31/23 12/23/23 Rx Or Fever #0 tabs bupropion HCl 150 mg 24 hr tablet, 150 mg PO DAILY #30 tabs 03/31/23 12/23/23 Rx extended release divalproex 500 mg tablet,extended 500 mg PO QAM 03/31/23 12/23/23 History release 24 hr aspirin 81 mg tablet,delayed 81 mg PO QAM 30 days #30 tabs 04/06/23 12/23/23 Rx release escitalopram oxalate 10 mg tablet 10 mg PO HS 05/03/23 12/23/23 History folic acid 800 mcg tablet 0.8 mg PO DAILY 05/03/23 12/23/23 History gabapentin 100 mg capsule See Rx Instructions .Route 05/17/23 12/23/23 Rx .COMPLEX #90 caps Vitamin B-12 2,500 mcg PO DAILY 05/19/23 12/23/23 History buspirone 10 mg tablet 10 mg PO BID 05/19/23 12/23/23 History clopidogrel 75 mg tablet 75 mg PO DAILY 06/07/23 12/23/23 History atorvastatin 80 mg tablet 80 mg PO DAILY #30 tabs 06/22/23 12/23/23 Rx megestrol 40 mg tablet 40 mg PO QID PRN loss of appetite 12/08/23 12/23/23 Rx #30 tabs sodium chloride 1,000 mg soluble 1,500 mg PO BID #60 tabs 12/08/23 12/23/23 Rx tablet trazodone 100 mg tablet 100 mg PO QHS #30 tabs 12/08/23 12/23/23 Rx midodrine 5 mg tablet 5 mg PO TID #90 tabs 12/14/23 12/23/23 Rx Allergies Allergy/AdvReac Type Severity Reaction Status Date / Time No Known Allergies Allergy Verified 12/14/23 08:10 Vital Signs Vital Signs - 24 hr 12/25/23 14:00 12/25/23 19:59 12/25/23 20:00 Temperature 36.6 C 36.8 C Pulse Rate 55 L 78 78 Respiratory Rate 12 18 18 Blood Pressure 126/57 L 143/66 H Pulse Oximetry 94 95 95 Oxygen Delivery Room Air Fraction of Inspired Oxygen 21 12/26/23 04:40 12/26/23 12:00 12/26/23 12:00 Temperature 36.7 C Pulse Rate 72 74 Respiratory Rate 18 20 Blood Pressure 143/63 H Pulse Oximetry 100 92 Oxygen Delivery Room Air Fraction of Inspired Oxygen 12/26/23 12:08 Temperature Pulse Rate 74 Respiratory Rate 20 Blood Pressure Pulse Oximetry Oxygen Delivery Fraction of Inspired Oxygen Exam Narrative: Exam today revealed her to be awake alert chronically ill unable to perform the verbal instruction unable to respond to the verbal stimuli appropriately and speech obviously dysphasic head normocephalic with no bruit ear nose throat examination normal neck is supple with no cervical bruit heart irregular lungs clear abdomen soft nontender neurologically she was awake alert was unable to follow the verbal commands appropriately unable to give any particular account of her illness his speech was dysphasic pupils round regular feels the vision were intact to finger confrontation though she tended to keep both eyes open did not follow all the time facial grimace was a symmetrical tongue was in the oral cavity no fasciculation motor examination revealed her to decrease strength in upper and lower extremities with hyperreflexia and downgoing plantar response Results Labs 12/26/23 05:57 12/26/23 05:57 Labs: Short CBC 12/26/23 Range/Units 05:57 WBC 11.6 H (4.5-10.0) K/mm3 Hgb 12.1 (12.0-15.0) g/dL Hct 37.4 (37.0-47.0) % Plt Count 218 (150-375) k/mm3 BMP 12/26/23 05:57 Sodium 139 Potassium 3.6 Chloride 101 Carbon Dioxide 30 BUN 12 Creatinine 0.60 L Glucose 87 Calcium 9.2 Liver Function 12/26/23 Range/Units 05:57 Total Bilirubin 0.3 (0.2-1.3) mg/dL AST 15 (14-36) U/L ALT 7 (6-35) U/L Alkaline Phosphatase 62 (38-126) U/L Albumin 3.2 L (3.5-5.1) g/dL
--- NOTE | 2023-12-26 13:19 | P.PNIM_ITS ---
Progress Note: A&P Assessment and Plan (1) Adult failure to thrive: Code(s): R62.7 - Adult failure to thrive Status: Chronic Plan Altered mental status Dementia versus acute encephalopathy Patient is alert, not oriented x3, on no baseline of mental status. Patient has no focal weakness, CT head shows no acute intracranial issue, normal aging brain Follow-up brain MRI with without contrast Adult failure to thrive/Moderate protein energy malnutrition Code(s): R62.7 - Adult failure to thrive Status: Chronic Assessment and Plan: --[facility], progressively got weaker since that time. Family unable to care for her at home due to her progressive weakness. Patient is well known to our service at [facility]. She has had multiple admissions for FTT, muscular deconditioning, frequent falls, weakness, and malnutrition. * PT and OT recommends SNF placement * Patient no having adequate oral intake * dispute coordinator following and awaiting SNF placement * Physical deconditioning Patient has a general weakness, muscle weakness, a frequent fall Resulting from aging, adult failure to thrive and man nutrition Continue PT/OT while waiting for placement Hyponatremia, resolved Upon arrival, sodium 129 below the baseline 136 December 02 likely from poor oral intake now on adequate intake Na 139 today (6) Bipolar disorder: Code(s): F31.9 - Bipolar disorder, unspecified Status: Chronic Assessment and Plan: * continue divalproex, BuSpar and trazodone(7) Hypothyroidism: Code(s): E03.9 - Hypothyroidism, unspecified Status: Chronic Assessment and Plan: * Continue Synthroid * TSH was 1.98 on 12/14/23(8) Depression: Code(s): F32.9 - Major depressive disorder, single episode, unspecified Status: Chronic Assessment and Plan: * continue escitalopram(9) Hyperlipidemia: Code(s): E78.5 - Hyperlipidemia, unspecified Status: Chronic Assessment and Plan: * continue aspirin and atorvastatin * Awaiting SNF placement DVT prophylaxis on Sq Lovenox Subjective Date/time seen: 12/26/23 13:19 Interval history: patient alert and oriented at bedside Appetite has improved and now having adequate oral intake awaiting SNF placement Review of Systems Review of Systems: FTT All systems reviewed & are unremarkable except as noted in HPI and below ROS unobtainable: Yes unobtainable due to mental status Exam Narrative: GENERAL: Pleasant, in no acute distress. Well-nourished. - EYES: EOMI. Anicteric. - HENT: Moist mucous membranes. - LUNGS: Clear to auscultation bilateral ly, no wheezing, rhonchi, or rales. - CARDIOVASCULAR: Regular rate and rhyth m. No murmur. No JVD. - ABDOMEN: Soft, non-tender and non-dist ended. No palpable masses. - EXTREMITIES: No edema. Peripheral puls es 2+. Non-tender. - NEUROLOGIC: No focal neurological defi cits. CN II-XII grossly intact. - PSYCHIATRIC: Awake, not oriented x 3. Appropriate mood and affect. - SKIN: No rashes or lesions. Warm. - LYMPH: No cervical lymphadenopathy. Objective Data Vital Signs Vital Signs: Vital Signs - 24 hr 12/25/23 14:00 12/25/23 19:59 12/25/23 20:00 Temperature 97.8 F 98.2 F Pulse Rate 55 L 78 78 Respiratory Rate 12 18 18 Blood Pressure 126/57 L 143/66 H Pulse Oximetry 94 95 95 Oxygen Delivery Room Air Fraction of Inspired Oxygen 21 12/26/23 04:40 12/26/23 12:00 12/26/23 12:00 Temperature 98.1 F Pulse Rate 72 74 Respiratory Rate 18 20 Blood Pressure 143/63 H Pulse Oximetry 100 92 Oxygen Delivery Room Air Fraction of Inspired Oxygen 12/26/23 12:08 Temperature Pulse Rate 74 Respiratory Rate 20 Blood Pressure Pulse Oximetry Oxygen Delivery Fraction of Inspired Oxygen Intake/Output Intake/Output: Intake & Output 12/23/23 12/24/23 12/25/23 12/26/23 23:59 23:59 23:59 23:59 Intake Total 947 648 1203 550 Output Total 350 500 400 Balance 100 450 670 150 Meds/Results Medications: Active Medications Generic Name Dose Route Start Last Admin Trade Name Freq PRN Reason Stop Dose Admin Acetaminophen 650 mg 12/23/23 15:42 12/25/23 20:42 Acetaminophen 325 Mg Tablet PO 650 mg Q4H PRN Administration Mild Pain (1-3) or Fever Albuterol 2.5 mg 12/26/23 11:44 12/26/23 11:58 Albuterol Sulfate Neb 2.5 Mg/3 Ml Inh INHALATION 2.5 mg Q4HRT PRN Administration Shortness Of Breath Aspirin 81 mg 12/24/23 09:00 12/26/23 09:50 Aspirin 81 Mg Enteric Tablet PO 81 mg QAM MINH Administration Atorvastatin Calcium 80 mg 12/24/23 09:00 12/26/23 09:51 Atorvastatin 40 Mg Tablet PO 80 mg DAILY MINH Administration Bupropion HCl 150 mg 12/24/23 09:00 12/26/23 09:50 Bupropion Hcl Xl (24 Hr) 150 Mg Tabcr PO 150 mg DAILY MINH Administration Buspirone HCl 10 mg 12/24/23 09:00 12/26/23 09:50 Buspirone Hcl 10 Mg Tablet PO 10 mg BID MINH Administration Clopidogrel Bisulfate 75 mg 12/24/23 09:00 12/26/23 09:50 Clopidogrel Bisulfate 75 Mg Tablet PO 75 mg DAILY MINH Administration Dextrose 12.5 gm 12/23/23 15:45 Dextrose 50% 25 Gm/50 Ml Syringe IV PUSH PRN PRN Hypoglycemia Protocol Divalproex Sodium 1,000 mg 12/23/23 21:00 12/25/23 20:41 Divalproex Sodium Er 500 Mg Tab.24h PO 1,000 mg HS MINH Administration Divalproex Sodium 500 mg 12/24/23 09:00 12/26/23 09:50 Divalproex Sodium Er 500 Mg Tab.24h PO 500 mg QAM MINH Administration Escitalopram Oxalate 10 mg 12/23/23 21:00 12/25/23 20:42 Escitalopram Oxalate 10 Mg Tablet PO 10 mg HS MINH Administration Folic Acid 0.8 mg 12/24/23 09:00 12/26/23 09:50 Folic Acid 0.4 Mg Tablet PO 0.8 mg QAM MINH Administration Gabapentin 100 mg 12/23/23 22:00 12/26/23 13:03 Gabapentin 100 Mg Capsule PO 100 mg Q8HR MINH Administration Glucagon 1 mg 12/23/23 15:45 Glucagon For Inj 1 Mg Vial IM PRN PRN Hypoglycemia Protocol Glucose 15 gm 12/23/23 15:45 Glucose Oral Gel 15 Gm Of Glucse In 37.5 Gm Tube PO PRN PRN Hypoglycemia Protocol Dextrose 1,000 mls @ 100 mls/hr 12/23/23 15:45 Dextrose 5% 1,000 Ml IVPB PRN PRN Hypoglycemia Protocol Levothyroxine Sodium 75 mcg 12/24/23 06:30 12/26/23 05:11 Levothyroxine Sodium 75 Mcg Tablet PO 75 mcg DAILY@0630 MINH Administration Megestrol Acetate 40 mg 12/23/23 19:25 Megestrol Acetate (*Chemo) 40 Mg Tablet PO QID PRN loss of appetite Midodrine 5 mg 12/24/23 09:00 12/26/23 13:03 Midodrine Hcl 2.5 Mg Tablet PO 5 mg TID MINH Administration Ondansetron HCl 4 mg 12/23/23 14:33 Ondansetron Inj 4 Mg/2 Ml Vial IV PUSH Q4H PRN Nausea Sodium Chloride 1 gm 12/24/23 09:00 12/26/23 09:51 Sodium Chloride 1 Gm Tablet PO 1 gm BID MINH Administration Sodium Chloride 500 mg 12/24/23 09:00 12/26/23 09:50 Sodium Chloride 500 Mg Tablet PO 500 mg BID MINH Administration Trazodone HCl 100 mg 12/25/23 08:32 Trazodone Hcl 50 Mg Tablet PO QHS PRN Insomnia Radiology Results: ITS Impressions Cervical Spine CT 12/23/23 12:23 IMPRESSION: 1. No fracture. 2. Severe cervical spondylosis. Hip/Pelvis X-Ray 12/23/23 12:30 IMPRESSION: 1. Mild osteoarthritis of the hips. Knee X-Ray 12/23/23 12:31 IMPRESSION: 1. Normal left knee. Chest X-Ray 12/23/23 12:36 IMPRESSION: 1. No acute cardiopulmonary disease. Abdomen/Pelvis CT 12/23/23 13:16 IMPRESSION: 1. 2 mm nonobstructing left kidney stone. 2. 3.0 cm fusiform aneurysm of infrarenal aorta. Head CT 12/24/23 13:21 IMPRESSION: 1. Normal aging brain. Brain MRI 12/25/23 14:11 IMPRESSION: 1. Normal aging brain. Labs Labs: Laboratory Results - last 24 hr 12/26/23 05:57 WBC 11.6 H RBC 3.82 L Hgb 12.1 Hct 37.4 MCV 97.9 MCH 31.7 MCHC 32.4 RDW 14.4 Plt Count 218 MPV 9.7 Immature Gran % (Auto) 0.5 Neut % (Auto) 67.5 Lymph % (Auto) 22.5 [place] % (Auto) 7.5 Eos % (Auto) 1.2 Baso % (Auto) 0.8 Lymph # (Auto) 2.60 [place] # (Auto) 0.9 H Eos # (Auto) 0.1 Baso # (Auto) 0.1 Abs Immat Gran (auto) 0.06 H Absolute Neuts (auto) 7.8 H Absolute Nucleated RBC 0.000 Nucleated RBC % 0.0 Sodium 139 Potassium 3.6 Chloride 101 Carbon Dioxide 30 Anion Gap 8 BUN 12 Creatinine 0.60 L Estim Creat Clear Calc 58 Estimated GFR > 60 Glucose 87 Calcium 9.2 Total Bilirubin 0.3 AST 15 ALT 7 Alkaline Phosphatase 62 Total Protein 7.0 Albumin 3.2 L Quality VTE Prophylaxis VTE prophylaxis: mechanical ordered
[2023-12-26] MEDS: ACETAMINOPHEN 325 MG TABLET 650 MG PO (20:12)
[2023-12-26] MEDS: DIVALPROEX SODIUM ER 500 MG TAB.24H 1000 MG PO (20:13)
[2023-12-26] MEDS: ESCITALOPRAM OXALATE 10 MG TABLET PO (20:13)
[2023-12-27 04:33] VITALS: BP 105/51; PULSE 60; RESP 18; TEMP 36.5; O2SAT 94
[2023-12-27] MEDS: GABAPENTIN 100 MG CAPSULE PO ×3 (05:17→20:56)
[2023-12-27] MEDS: LEVOTHYROXINE SODIUM 75 MCG TABLET PO (05:17)
[2023-12-27 06:25] LABS: Basophils Absolute Auto 0.1 K/mm3 (0.0-0.1); Eosinophils Absolute Auto 0.3 K/mm3 (0-0.3); Eosinophils Percent Auto 2.4 % (0-4.4); Hematocrit 34.9 % (37.0-47.0); Hemoglobin 11.2 g/dL (12.0-15.0); Immature Granulocyte Absolute 0.06 K/mm3 (0.00-0.031); Immature Granulocyte Percent A 0.5 % (0-0.5); Lymphocytes Absolute Auto 2.34 K/mm3 (0.9-3.2); Lymphocytes Percent Auto 21.2 % (18.3-44.2); Mean Corpuscular HGB Conc 32.1 g/dl (32-36); Mean Corpuscular Hemoglobin 31.2 pg (26-34); Mean Corpuscular Volume 97.2 fl (80-100); Monocytes Percent Auto 9.3 % (2.6-8.5); Neutrophils Absolute Auto 7.2 K/mm3 (1.3-6.7); Neutrophils Percent Auto 65.6 % (45.5-73.1); Platelet Count Result 217 k/mm3 (150-375); Red Blood Count 3.59 M/mm3 (4.2-5.4); Red Cell Distribution Width 14.3 % (11.5-14.5)
[2023-12-27 06:34] LABS: Alanine Aminotransferase 8 U/L (6-35); Alkaline Phosphatase 57 U/L (38-126); Anion Gap 7 mmol/L (4-12); Aspartate Amino Transferase 15 U/L (14-36); Bilirubin,Total 0.3 mg/dL (0.2-1.3); Blood Urea Nitrogen 11 mg/dL (7-17); Calcium 8.8 mg/dL (8.4-10.2); Carbon Dioxide 28 mmol/L (22-30); Chloride 99 mmol/L (98-107); Estimated CRCL calculation 68 ml/min; Estimated Glomerular Filt Rate > 60; Glucose 82 mg/dL (65-110); Potassium 3.4 mmol/L (3.4-5.0); Sodium 134 mmol/L (137-145)
[2023-12-27] MEDS: DIVALPROEX SODIUM ER 500 MG TAB.24H PO (09:37)
[2023-12-27] MEDS: SODIUM CHLORIDE 1 GM TABLET PO ×2 (09:37→17:44)
[2023-12-27] MEDS: SODIUM CHLORIDE 500 MG TABLET PO ×2 (09:37→17:44)
[2023-12-27] MEDS: buPROPion HCL XL (24 HR) 150 MG TABCR PO (09:38)
[2023-12-27] MEDS: FOLIC ACID 0.4 MG TABLET 0.8 MG PO (09:38)
[2023-12-27] MEDS: busPIRone HCL 10 MG TABLET PO ×2 (09:38→17:44)
[2023-12-27] MEDS: ASPIRIN 81 MG ENTERIC TABLET PO (09:38)
[2023-12-27] MEDS: MIDODRINE HCL 2.5 MG TABLET 5 MG PO ×3 (09:38→17:44)
[2023-12-27] MEDS: CLOPIDOGREL BISULFATE 75 MG TABLET PO (09:38)
[2023-12-27] MEDS: ATORVASTATIN 40 MG TABLET 80 MG PO (09:39)
[2023-12-27] MEDS: ENOXAPARIN 40 MG/0.4 ML SYRINGE SUB-Q (09:39)
--- NOTE | 2023-12-27 10:50 | P.PNIM_ITS ---
Progress Note: A&P Assessment and Plan (1) Adult failure to thrive: Code(s): R62.7 - Adult failure to thrive Status: Chronic Plan Altered mental status Dementia versus acute encephalopathy Patient is alert, not oriented x3, on no baseline of mental status. Patient has no focal weakness, CT head shows no acute intracranial issue, normal aging brain Follow-up brain MRI with without contrast Adult failure to thrive/Moderate protein energy malnutrition Code(s): R62.7 - Adult failure to thrive Status: Chronic Assessment and Plan: --left [facility] about 1 week ago to live with family, progressively got weaker since that time. Family unable to care for her at home due to her progressive weakness. Patient is well known to our service at [facility]. She has had multiple admissions for FTT, muscular deconditioning, frequent falls, weakness, and malnutrition. * PT and OT recommends SNF placement * Patient no having adequate oral intake * department coordinator following and awaiting SNF placement * Physical deconditioning Patient has a general weakness, muscle weakness, a frequent fall Resulting from aging, adult failure to thrive and man nutrition Continue PT/OT while waiting for placement Hyponatremia, resolved Upon arrival, sodium 129 below the baseline 136 December 02 likely from poor oral intake now on adequate intake Na 139 today (6) Bipolar disorder: Code(s): F31.9 - Bipolar disorder, unspecified Status: Chronic Assessment and Plan: * continue divalproex, BuSpar and trazodone(7) Hypothyroidism: Code(s): E03.9 - Hypothyroidism, unspecified Status: Chronic Assessment and Plan: * Continue Synthroid * TSH was 1.98 on 12/14/23(8) Depression: Code(s): F32.9 - Major depressive disorder, single episode, unspecified Status: Chronic Assessment and Plan: * continue escitalopram(9) Hyperlipidemia: Code(s): E78.5 - Hyperlipidemia, unspecified Status: Chronic Assessment and Plan: * continue aspirin and atorvastatin * Awaiting SNF placement DVT prophylaxis on Sq Lovenox Subjective Date/time seen: 12/27/23 10:50 Interval history: Patient comfortable at bedside and awaiting placement eating very well Review of Systems Review of Systems: FTT All systems reviewed & are unremarkable except as noted in HPI and below ROS unobtainable: Yes unobtainable due to mental status Exam Narrative: GENERAL: Pleasant, in no acute distress. Well-nourished. - EYES: EOMI. Anicteric. - HENT: Moist mucous membranes. - LUNGS: Clear to auscultation bilateral ly, no wheezing, rhonchi, or rales. - CARDIOVASCULAR: Regular rate and rhyth m. No murmur. No JVD. - ABDOMEN: Soft, non-tender and non-dist ended. No palpable masses. - EXTREMITIES: No edema. Peripheral puls es 2+. Non-tender. - NEUROLOGIC: No focal neurological defi cits. CN II-XII grossly intact. - PSYCHIATRIC: Awake, not oriented x 3. Appropriate mood and affect. - SKIN: No rashes or lesions. Warm. - LYMPH: No cervical lymphadenopathy. Objective Data Vital Signs Vital Signs: Vital Signs - 24 hr 12/26/23 12:00 12/26/23 12:00 12/26/23 12:08 Temperature Pulse Rate 74 74 Respiratory Rate 20 20 Blood Pressure Pulse Oximetry 92 Oxygen Delivery Room Air Fraction of Inspired Oxygen 12/26/23 13:39 12/26/23 14:00 12/26/23 17:39 Temperature 97.4 F L Pulse Rate 84 Respiratory Rate 24 H Blood Pressure 124/100 H 124/100 H 147/97 H Pulse Oximetry 92 Oxygen Delivery Fraction of Inspired Oxygen 12/26/23 19:49 12/26/23 20:30 12/27/23 04:33 Temperature 97.7 F 97.7 F Pulse Rate 84 68 60 Respiratory Rate 24 H 18 18 Blood Pressure 147/62 H 105/51 L Pulse Oximetry 92 100 94 Oxygen Delivery Room Air Fraction of Inspired Oxygen 21 12/27/23 09:38 Temperature Pulse Rate Respiratory Rate Blood Pressure Pulse Oximetry Oxygen Delivery Room Air Fraction of Inspired Oxygen Intake/Output Intake/Output: Intake & Output 12/24/23 12/25/23 12/26/23 12/27/23 23:59 23:59 23:59 23:59 Intake Total 800 1170 790 120 Output Total 350 500 800 800 Balance 450 981 -10 -874 Meds/Results Medications: Active Medications Generic Name Dose Route Start Last Admin Trade Name Freq PRN Reason Stop Dose Admin Acetaminophen 650 mg 12/23/23 15:42 12/26/23 20:12 Acetaminophen 325 Mg Tablet PO 650 mg Q4H PRN Administration Mild Pain (1-3) or Fever Albuterol 2.5 mg 12/26/23 11:44 12/26/23 11:58 Albuterol Sulfate Neb 2.5 Mg/3 Ml Inh INHALATION 2.5 mg Q4HRT PRN Administration Shortness Of Breath Aspirin 81 mg 12/24/23 09:00 12/27/23 09:38 Aspirin 81 Mg Enteric Tablet PO 81 mg QAM MINH Administration Atorvastatin Calcium 80 mg 12/24/23 09:00 12/27/23 09:39 Atorvastatin 40 Mg Tablet PO 80 mg DAILY MINH Administration Bupropion HCl 150 mg 12/24/23 09:00 12/27/23 09:38 Bupropion Hcl Xl (24 Hr) 150 Mg Tabcr PO 150 mg DAILY MINH Administration Buspirone HCl 10 mg 12/24/23 09:00 12/27/23 09:38 Buspirone Hcl 10 Mg Tablet PO 10 mg BID MINH Administration Clopidogrel Bisulfate 75 mg 12/24/23 09:00 12/27/23 09:38 Clopidogrel Bisulfate 75 Mg Tablet PO 75 mg DAILY MINH Administration Dextrose 12.5 gm 12/23/23 15:45 Dextrose 50% 25 Gm/50 Ml Syringe IV PUSH PRN PRN Hypoglycemia Protocol Divalproex Sodium 1,000 mg 12/23/23 21:00 12/26/23 20:13 Divalproex Sodium Er 500 Mg Tab.24h PO 1,000 mg HS MINH Administration Divalproex Sodium 500 mg 12/24/23 09:00 12/27/23 09:37 Divalproex Sodium Er 500 Mg Tab.24h PO 500 mg QAM MINH Administration Enoxaparin Sodium 40 mg 12/27/23 09:00 12/27/23 09:39 Enoxaparin 40 Mg/0.4 Ml Syringe SUB-Q 40 mg DAILY MINH Administration Escitalopram Oxalate 10 mg 12/23/23 21:00 12/26/23 20:13 Escitalopram Oxalate 10 Mg Tablet PO 10 mg HS MINH Administration Folic Acid 0.8 mg 12/24/23 09:00 12/27/23 09:38 Folic Acid 0.4 Mg Tablet PO 0.8 mg QAM MINH Administration Gabapentin 100 mg 12/23/23 22:00 12/27/23 05:17 Gabapentin 100 Mg Capsule PO 100 mg Q8HR MINH Administration Glucagon 1 mg 12/23/23 15:45 Glucagon For Inj 1 Mg Vial IM PRN PRN Hypoglycemia Protocol Glucose 15 gm 12/23/23 15:45 Glucose Oral Gel 15 Gm Of Glucse In 37.5 Gm Tube PO PRN PRN Hypoglycemia Protocol Dextrose 1,000 mls @ 100 mls/hr 12/23/23 15:45 Dextrose 5% 1,000 Ml IVPB PRN PRN Hypoglycemia Protocol Levothyroxine Sodium 75 mcg 12/24/23 06:30 12/27/23 05:17 Levothyroxine Sodium 75 Mcg Tablet PO 75 mcg DAILY@0630 MINH Administration Megestrol Acetate 40 mg 12/23/23 19:25 Megestrol Acetate (*Chemo) 40 Mg Tablet PO QID PRN loss of appetite Midodrine 5 mg 12/24/23 09:00 12/27/23 09:38 Midodrine Hcl 2.5 Mg Tablet PO 5 mg TID MINH Administration Ondansetron HCl 4 mg 12/23/23 14:33 Ondansetron Inj 4 Mg/2 Ml Vial IV PUSH Q4H PRN Nausea Sodium Chloride 1 gm 12/24/23 09:00 12/27/23 09:37 Sodium Chloride 1 Gm Tablet PO 1 gm BID MINH Administration Sodium Chloride 500 mg 12/24/23 09:00 12/27/23 09:37 Sodium Chloride 500 Mg Tablet PO 500 mg BID MINH Administration Trazodone HCl 100 mg 12/25/23 08:32 Trazodone Hcl 50 Mg Tablet PO QHS PRN Insomnia Radiology Results: ITS Impressions Cervical Spine CT 12/23/23 12:23 IMPRESSION: 1. No fracture. 2. Severe cervical spondylosis. Hip/Pelvis X-Ray 12/23/23 12:30 IMPRESSION: 1. Mild osteoarthritis of the hips. Knee X-Ray 12/23/23 12:31 IMPRESSION: 1. Normal left knee. Chest X-Ray 12/23/23 12:36 IMPRESSION: 1. No acute cardiopulmonary disease. Abdomen/Pelvis CT 12/23/23 13:16 IMPRESSION: 1. 2 mm nonobstructing left kidney stone. 2. 3.0 cm fusiform aneurysm of infrarenal aorta. Head CT 12/24/23 13:21 IMPRESSION: 1. Normal aging brain. Brain MRI 12/25/23 14:11 IMPRESSION: 1. Normal aging brain. Labs Labs: Laboratory Results - last 24 hr 12/27/23 05:46 WBC 11.0 H RBC 3.59 L Hgb 11.2 L Hct 34.9 L MCV 97.2 MCH 31.2 MCHC 32.1 RDW 14.3 Plt Count 217 MPV 10.0 Immature Gran % (Auto) 0.5 Neut % (Auto) 65.6 Lymph % (Auto) 21.2 [place] % (Auto) 9.3 H Eos % (Auto) 2.4 Baso % (Auto) 1.0 Lymph # (Auto) 2.34 [place] # (Auto) 1.0 H Eos # (Auto) 0.3 Baso # (Auto) 0.1 Abs Immat Gran (auto) 0.06 H Absolute Neuts (auto) 7.2 H Absolute Nucleated RBC 0.000 Nucleated RBC % 0.0 Sodium 134 L Potassium 3.4 Chloride 99 Carbon Dioxide 28 Anion Gap 7 BUN 11 Creatinine 0.50 L Estim Creat Clear Calc 68 Estimated GFR > 60 Glucose 82 Calcium 8.8 Total Bilirubin 0.3 AST 15 ALT 8 Alkaline Phosphatase 57 Total Protein 6.0 L Albumin 3.0 L Quality VTE Prophylaxis VTE prophylaxis: mechanical ordered
[2023-12-27 14:00] VITALS: BP 147/58; PULSE 74; RESP 16; TEMP 36.8; O2SAT 99
--- NOTE | 2023-12-27 14:02 | P.PNNEUR_ITS ---
Subjective Date/time seen: 12/27/23 14:02 Interval history: 68 years old lady with ongoing bipolar disorder complicated by failure to thrive in addition to ongoing history of ascending aortic aneurysm involving the thoracic aorta and recent complaints of frequent falls, MRI of the brain was obtained which did not confirm any acute finding and patient is at this particular time being treated for the adult failure to thrive with planning to the shelter placement. Neurological status remains unchanged Objective Data Vital Signs Vital Signs: Vital Signs - 24 hr 12/26/23 17:39 12/26/23 19:49 12/26/23 20:30 Temperature 36.5 C Pulse Rate 84 68 Respiratory Rate 24 H 18 Blood Pressure 147/97 H 147/62 H Pulse Oximetry 92 100 Oxygen Delivery Room Air Fraction of Inspired Oxygen 21 12/27/23 04:33 12/27/23 09:38 Temperature 36.5 C Pulse Rate 60 Respiratory Rate 18 Blood Pressure 105/51 L Pulse Oximetry 94 Oxygen Delivery Room Air Fraction of Inspired Oxygen Intake/Output Intake/Output: Intake & Output 12/24/23 12/25/23 12/26/23 12/27/23 23:59 23:59 23:59 23:59 Intake Total 800 1170 790 360 Output Total 350 500 800 800 Balance 450 670 10 -982 Meds/Results Medications: Active Medications Generic Name Dose Route Start Last Admin Trade Name Freq PRN Reason Stop Dose Admin Acetaminophen 650 mg 12/23/23 15:42 12/26/23 20:12 Acetaminophen 325 Mg Tablet PO 650 mg Q4H PRN Administration Mild Pain (1-3) or Fever Albuterol 2.5 mg 12/26/23 11:44 12/26/23 11:58 Albuterol Sulfate Neb 2.5 Mg/3 Ml Inh INHALATION 2.5 mg Q4HRT PRN Administration Shortness Of Breath Aspirin 81 mg 12/24/23 09:00 12/27/23 09:38 Aspirin 81 Mg Enteric Tablet PO 81 mg QAM MINH Administration Atorvastatin Calcium 80 mg 12/24/23 09:00 12/27/23 09:39 Atorvastatin 40 Mg Tablet PO 80 mg DAILY MINH Administration Bupropion HCl 150 mg 12/24/23 09:00 12/27/23 09:38 Bupropion Hcl Xl (24 Hr) 150 Mg Tabcr PO 150 mg DAILY MINH Administration Buspirone HCl 10 mg 12/24/23 09:00 12/27/23 09:38 Buspirone Hcl 10 Mg Tablet PO 10 mg BID MINH Administration Clopidogrel Bisulfate 75 mg 12/24/23 09:00 12/27/23 09:38 Clopidogrel Bisulfate 75 Mg Tablet PO 75 mg DAILY MINH Administration Dextrose 12.5 gm 12/23/23 15:45 Dextrose 50% 25 Gm/50 Ml Syringe IV PUSH PRN PRN Hypoglycemia Protocol Divalproex Sodium 1,000 mg 12/23/23 21:00 12/26/23 20:13 Divalproex Sodium Er 500 Mg Tab.24h PO 1,000 mg HS MINH Administration Divalproex Sodium 500 mg 12/24/23 09:00 12/27/23 09:37 Divalproex Sodium Er 500 Mg Tab.24h PO 500 mg QAM MINH Administration Enoxaparin Sodium 40 mg 12/27/23 09:00 12/27/23 09:39 Enoxaparin 40 Mg/0.4 Ml Syringe SUB-Q 40 mg DAILY MINH Administration Escitalopram Oxalate 10 mg 12/23/23 21:00 12/26/23 20:13 Escitalopram Oxalate 10 Mg Tablet PO 10 mg HS MINH Administration Folic Acid 0.8 mg 12/24/23 09:00 12/27/23 09:38 Folic Acid 0.4 Mg Tablet PO 0.8 mg QAM MINH Administration Gabapentin 100 mg 12/23/23 22:00 12/27/23 05:17 Gabapentin 100 Mg Capsule PO 100 mg Q8HR MINH Administration Glucagon 1 mg 12/23/23 15:45 Glucagon For Inj 1 Mg Vial IM PRN PRN Hypoglycemia Protocol Glucose 15 gm 12/23/23 15:45 Glucose Oral Gel 15 Gm Of Glucse In 37.5 Gm Tube PO PRN PRN Hypoglycemia Protocol Dextrose 1,000 mls @ 100 mls/hr 12/23/23 15:45 Dextrose 5% 1,000 Ml IVPB PRN PRN Hypoglycemia Protocol Levothyroxine Sodium 75 mcg 12/24/23 06:30 12/27/23 05:17 Levothyroxine Sodium 75 Mcg Tablet PO 75 mcg DAILY@0630 MINH Administration Megestrol Acetate 40 mg 12/23/23 19:25 Megestrol Acetate (*Chemo) 40 Mg Tablet PO QID PRN loss of appetite Midodrine 5 mg 12/24/23 09:00 12/27/23 12:56 Midodrine Hcl 2.5 Mg Tablet PO 5 mg TID MINH Administration Ondansetron HCl 4 mg 12/23/23 14:33 Ondansetron Inj 4 Mg/2 Ml Vial IV PUSH Q4H PRN Nausea Sodium Chloride 1 gm 12/24/23 09:00 12/27/23 09:37 Sodium Chloride 1 Gm Tablet PO 1 gm BID MINH Administration Sodium Chloride 500 mg 12/24/23 09:00 12/27/23 09:37 Sodium Chloride 500 Mg Tablet PO 500 mg BID MINH Administration Trazodone HCl 100 mg 12/25/23 08:32 Trazodone Hcl 50 Mg Tablet PO QHS PRN Insomnia Radiology Results: ITS Impressions Cervical Spine CT 12/23/23 12:23 IMPRESSION: 1. No fracture. 2. Severe cervical spondylosis. Hip/Pelvis X-Ray 12/23/23 12:30 IMPRESSION: 1. Mild osteoarthritis of the hips. Knee X-Ray 12/23/23 12:31 IMPRESSION: 1. Normal left knee. Chest X-Ray 12/23/23 12:36 IMPRESSION: 1. No acute cardiopulmonary disease. Abdomen/Pelvis CT 12/23/23 13:16 IMPRESSION: 1. 2 mm nonobstructing left kidney stone. 2. 3.0 cm fusiform aneurysm of infrarenal aorta. Head CT 12/24/23 13:21 IMPRESSION: 1. Normal aging brain. Brain MRI 12/25/23 14:11 IMPRESSION: 1. Normal aging brain. Labs Labs: Laboratory Results - last 24 hr 12/27/23 05:46 WBC 11.0 H RBC 3.59 L Hgb 11.2 L Hct 34.9 L MCV 97.2 MCH 31.2 MCHC 32.1 RDW 14.3 Plt Count 217 MPV 10.0 Immature Gran % (Auto) 0.5 Neut % (Auto) 65.6 Lymph % (Auto) 21.2 [place] % (Auto) 9.3 H Eos % (Auto) 2.4 Baso % (Auto) 1.0 Lymph # (Auto) 2.34 [place] # (Auto) 1.0 H Eos # (Auto) 0.3 Baso # (Auto) 0.1 Abs Immat Gran (auto) 0.06 H Absolute Neuts (auto) 7.2 H Absolute Nucleated RBC 0.000 Nucleated RBC % 0.0 Sodium 134 L Potassium 3.4 Chloride 99 Carbon Dioxide 28 Anion Gap 7 BUN 11 Creatinine 0.50 L Estim Creat Clear Calc 68 Estimated GFR > 60 Glucose 82 Calcium 8.8 Total Bilirubin 0.3 AST 15 ALT 8 Alkaline Phosphatase 57 Total Protein 6.0 L Albumin 3.0 L
[2023-12-27] MEDS: LORATADINE 10 MG TABLET PO (17:44)
[2023-12-27] MEDS: diphenhydrAMINE HCl INJ 50 MG/ML VIAL 25 MG IV PUSH (18:06)
[2023-12-27 19:38] VITALS: BP 163/80; PULSE 69; RESP 18; TEMP 36.4; O2SAT 100
[2023-12-27] MEDS: traZODone HCL 50 MG TABLET 100 MG PO (20:56)
[2023-12-27] MEDS: ESCITALOPRAM OXALATE 10 MG TABLET PO (20:56)
[2023-12-27] MEDS: DIVALPROEX SODIUM ER 500 MG TAB.24H 1000 MG PO (20:57)
[2023-12-28 04:59] VITALS: BP 100/51; PULSE 77; RESP 16; TEMP 36.6; O2SAT 95
[2023-12-28] MEDS: GABAPENTIN 100 MG CAPSULE PO ×3 (05:02→20:37)
[2023-12-28] MEDS: LEVOTHYROXINE SODIUM 75 MCG TABLET PO (05:02)
[2023-12-28 06:06] LABS: Basophils Absolute Auto 0.1 K/mm3 (0.0-0.1); Basophils Percent Auto 1.2 % (0.2-1.2); Eosinophils Absolute Auto 0.3 K/mm3 (0-0.3); Eosinophils Percent Auto 3.2 % (0-4.4); Hemoglobin 11.7 g/dL (12.0-15.0); Immature Granulocyte Absolute 0.04 K/mm3 (0.00-0.031); Immature Granulocyte Percent A 0.5 % (0-0.5); Lymphocytes Absolute Auto 2.46 K/mm3 (0.9-3.2); Lymphocytes Percent Auto 27.7 % (18.3-44.2); Mean Corpuscular HGB Conc 32.5 g/dl (32-36); Mean Corpuscular Hemoglobin 31.2 pg (26-34); Mean Platelet Volume 9.5 fl (7.4-10.4); Monocytes Absolute Auto 0.9 K/mm3 (0.1-0.6); Neutrophils Absolute Auto 5.1 K/mm3 (1.3-6.7); Neutrophils Percent Auto 57.4 % (45.5-73.1); Platelet Count Result 226 k/mm3 (150-375); Red Blood Count 3.75 M/mm3 (4.2-5.4); Red Cell Distribution Width 14.5 % (11.5-14.5); White Blood Count 8.9 K/mm3 (4.5-10.0)
[2023-12-28 06:16] LABS: Alanine Aminotransferase 7 U/L (6-35); Alkaline Phosphatase 57 U/L (38-126); Anion Gap 4 mmol/L (4-12); Aspartate Amino Transferase 18 U/L (14-36); Bilirubin,Total 0.3 mg/dL (0.2-1.3); Blood Urea Nitrogen 8 mg/dL (7-17); Carbon Dioxide 32 mmol/L (22-30); Chloride 100 mmol/L (98-107); Estimated CRCL calculation 58 ml/min; Estimated Glomerular Filt Rate > 60; Glucose 86 mg/dL (65-110); Potassium 3.2 mmol/L (3.4-5.0); Sodium 136 mmol/L (137-145)
--- NOTE | 2023-12-28 06:20 | PC.NURSE ---
PT TRANSFERRED TO ROOM 322 VIA BED. BELONGINGS WITH PT AND FAMILY NOTIFIED.
[2023-12-28] MEDS: ASPIRIN 81 MG ENTERIC TABLET PO (09:48)
[2023-12-28] MEDS: busPIRone HCL 10 MG TABLET PO ×2 (09:48→16:56)
[2023-12-28] MEDS: SODIUM CHLORIDE 1 GM TABLET PO ×2 (09:48→17:55)
[2023-12-28] MEDS: DIVALPROEX SODIUM ER 500 MG TAB.24H PO (09:48)
[2023-12-28] MEDS: buPROPion HCL XL (24 HR) 150 MG TABCR PO (09:49)
[2023-12-28] MEDS: FOLIC ACID 0.4 MG TABLET 0.8 MG PO (09:49)
[2023-12-28] MEDS: MIDODRINE HCL 2.5 MG TABLET 5 MG PO ×3 (09:49→16:55)
[2023-12-28] MEDS: CLOPIDOGREL BISULFATE 75 MG TABLET PO (09:49)
[2023-12-28] MEDS: ATORVASTATIN 40 MG TABLET 80 MG PO (09:49)
[2023-12-28] MEDS: SODIUM CHLORIDE 500 MG TABLET PO ×2 (09:49→17:54)
[2023-12-28] MEDS: ENOXAPARIN 40 MG/0.4 ML SYRINGE SUB-Q (09:57)
[2023-12-28 14:00] VITALS: BP 117/52; PULSE 80; RESP 18; TEMP 36.4; O2SAT 100
--- NOTE | 2023-12-28 14:37 | P.PNIM_ITS ---
Progress Note: A&P Assessment and Plan (1) Adult failure to thrive: Code(s): R62.7 - Adult failure to thrive Status: Chronic Plan Altered mental status Dementia versus acute encephalopathy Patient is alert, not oriented x3, on no baseline of mental status. Patient has no focal weakness, CT head shows no acute intracranial issue, normal aging brain Follow-up brain MRI with without contrast Adult failure to thrive/Moderate protein energy malnutrition Code(s): R62.7 - Adult failure to thrive Status: Chronic Assessment and Plan: --left [facility] about [facility] week ago to live with family, progressively got weaker since that time. Family unable to care for her at home due to her progressive weakness. Patient is well known to our service at [facility]. She has had multiple admissions for FTT, muscular deconditioning, frequent falls, weakness, and malnutrition. * PT and OT recommends SNF placement * Patient no having adequate oral intake * network coordinator following and awaiting SNF placement * Physical deconditioning Patient has a general weakness, muscle weakness, a frequent fall Resulting from aging, adult failure to thrive and man nutrition Continue PT/OT while waiting for placement Hyponatremia, resolved Upon arrival, sodium 129 below the baseline 136 December 02 likely from poor oral intake now on adequate intake Na 139 today (6) Bipolar disorder: Code(s): F31.9 - Bipolar disorder, unspecified Status: Chronic Assessment and Plan: * continue divalproex, BuSpar and trazodone(7) Hypothyroidism: Code(s): E03.9 - Hypothyroidism, unspecified Status: Chronic Assessment and Plan: * Continue Synthroid * TSH was 1.98 on 12/14/23(8) Depression: Code(s): F32.9 - Major depressive disorder, single episode, unspecified Status: Chronic Assessment and Plan: * continue escitalopram(9) Hyperlipidemia: Code(s): E78.5 - Hyperlipidemia, unspecified Status: Chronic Assessment and Plan: * continue aspirin and atorvastatin * Awaiting SNF placement DVT prophylaxis on Sq Lovenox Subjective Date/time seen: 12/28/23 14:37 Interval history: comfortable at bedside and awaiting placement Review of Systems Review of Systems: FTT All systems reviewed & are unremarkable except as noted in HPI and below ROS unobtainable: Yes unobtainable due to mental status Exam Narrative: GENERAL: Pleasant, in no acute distress. Well-nourished. - EYES: EOMI. Anicteric. - HENT: Moist mucous membranes. - LUNGS: Clear to auscultation bilateral ly, no wheezing, rhonchi, or rales. - CARDIOVASCULAR: Regular rate and rhyth m. No murmur. No JVD. - ABDOMEN: Soft, non-tender and non-dist ended. No palpable masses. - EXTREMITIES: No edema. Peripheral puls es 2+. Non-tender. - NEUROLOGIC: No focal neurological defi cits. CN II-XII grossly intact. - PSYCHIATRIC: Awake, not oriented x 3. Appropriate mood and affect. - SKIN: No rashes or lesions. Warm. - LYMPH: No cervical lymphadenopathy. Objective Data Vital Signs Vital Signs: Vital Signs - 24 hr 12/27/23 19:38 12/27/23 20:00 12/28/23 04:59 Temperature 97.6 F 97.8 F Pulse Rate 69 77 Respiratory Rate 18 16 Blood Pressure 163/80 H 100/51 L Pulse Oximetry 100 95 Oxygen Delivery Room Air 12/28/23 06:32 Temperature Pulse Rate Respiratory Rate Blood Pressure Pulse Oximetry Oxygen Delivery Room Air Intake/Output Intake/Output: Intake & Output 12/25/23 12/26/23 12/27/23 12/28/23 23:59 23:59 23:59 23:59 Intake Total 4262 108 8982 200 Output Total 320 637 0338 300 Balance 670 -10 -250 -100 Meds/Results Medications: Active Medications Generic Name Dose Route Start Last Admin Trade Name Freq PRN Reason Stop Dose Admin Acetaminophen 650 mg 12/23/23 15:42 12/26/23 20:12 Acetaminophen 325 Mg Tablet PO 650 mg Q4H PRN Administration Mild Pain (1-3) or Fever Albuterol 2.5 mg 12/26/23 11:44 12/26/23 11:58 Albuterol Sulfate Neb 2.5 Mg/3 Ml Inh INHALATION 2.5 mg Q4HRT PRN Administration Shortness Of Breath Aspirin 81 mg 12/24/23 09:00 12/28/23 09:48 Aspirin 81 Mg Enteric Tablet PO 81 mg QAM MINH Administration Atorvastatin Calcium 80 mg 12/24/23 09:00 12/28/23 09:49 Atorvastatin 40 Mg Tablet PO 80 mg DAILY MINH Administration Bupropion HCl 150 mg 12/24/23 09:00 12/28/23 09:49 Bupropion Hcl Xl (24 Hr) 150 Mg Tabcr PO 150 mg DAILY MINH Administration Buspirone HCl 10 mg 12/24/23 09:00 12/28/23 09:48 Buspirone Hcl 10 Mg Tablet PO 10 mg BID MINH Administration Clopidogrel Bisulfate 75 mg 12/24/23 09:00 12/28/23 09:49 Clopidogrel Bisulfate 75 Mg Tablet PO 75 mg DAILY MINH Administration Dextrose 12.5 gm 12/23/23 15:45 Dextrose 50% 25 Gm/50 Ml Syringe IV PUSH PRN PRN Hypoglycemia Protocol Divalproex Sodium 1,000 mg 12/23/23 21:00 12/27/23 20:57 Divalproex Sodium Er 500 Mg Tab.24h PO 1,000 mg HS MINH Administration Divalproex Sodium 500 mg 12/24/23 09:00 12/28/23 09:48 Divalproex Sodium Er 500 Mg Tab.24h PO 500 mg QAM MINH Administration Enoxaparin Sodium 40 mg 12/27/23 09:00 12/28/23 09:57 Enoxaparin 40 Mg/0.4 Ml Syringe SUB-Q 40 mg DAILY MINH Administration Escitalopram Oxalate 10 mg 12/23/23 21:00 12/27/23 20:56 Escitalopram Oxalate 10 Mg Tablet PO 10 mg HS MINH Administration Folic Acid 0.8 mg 12/24/23 09:00 12/28/23 09:49 Folic Acid 0.4 Mg Tablet PO 0.8 mg QAM MINH Administration Gabapentin 100 mg 12/23/23 22:00 12/28/23 13:14 Gabapentin 100 Mg Capsule PO 100 mg Q8HR MINH Administration Glucose 15 gm 12/23/23 15:45 Glucose Oral Gel 15 Gm Of Glucse In 37.5 Gm Tube PO PRN PRN Hypoglycemia Protocol Dextrose 1,000 mls @ 100 mls/hr 12/23/23 15:45 Dextrose 5% 1,000 Ml IVPB PRN PRN Hypoglycemia Protocol Levothyroxine Sodium 75 mcg 12/24/23 06:30 12/28/23 05:02 Levothyroxine Sodium 75 Mcg Tablet PO 75 mcg DAILY@0630 MINH Administration Megestrol Acetate 40 mg 12/23/23 19:25 Megestrol Acetate (*Chemo) 40 Mg Tablet PO QID PRN loss of appetite Midodrine 5 mg 12/24/23 09:00 12/28/23 13:45 Midodrine Hcl 2.5 Mg Tablet PO 5 mg TID MINH Administration Ondansetron HCl 4 mg 12/23/23 14:33 Ondansetron Inj 4 Mg/2 Ml Vial IV PUSH Q4H PRN Nausea Sodium Chloride 1 gm 12/24/23 09:00 12/28/23 09:48 Sodium Chloride 1 Gm Tablet PO 1 gm BID MINH Administration Sodium Chloride 500 mg 12/24/23 09:00 12/28/23 09:49 Sodium Chloride 500 Mg Tablet PO 500 mg BID MINH Administration Trazodone HCl 100 mg 12/25/23 08:32 12/27/23 20:56 Trazodone Hcl 50 Mg Tablet PO 100 mg QHS PRN Administration Insomnia Radiology Results: ITS Impressions Cervical Spine CT 12/23/23 12:23 IMPRESSION: 1. No fracture. 2. Severe cervical spondylosis. Hip/Pelvis X-Ray 12/23/23 12:30 IMPRESSION: 1. Mild osteoarthritis of the hips. Knee X-Ray 12/23/23 12:31 IMPRESSION: 1. Normal left knee. Chest X-Ray 12/23/23 12:36 IMPRESSION: 1. No acute cardiopulmonary disease. Abdomen/Pelvis CT 12/23/23 13:16 IMPRESSION: 1. 2 mm nonobstructing left kidney stone. 2. 3.0 cm fusiform aneurysm of infrarenal aorta. Head CT 12/24/23 13:21 IMPRESSION: 1. Normal aging brain. Brain MRI 12/25/23 14:11 IMPRESSION: 1. Normal aging brain. Labs Labs: Laboratory Results - last 24 hr 12/28/23 05:44 WBC 8.9 RBC 3.75 L Hgb 11.7 L Hct 36.0 L MCV 96.0 MCH 31.2 MCHC 32.5 RDW 14.5 Plt Count 226 MPV 9.5 Immature Gran % (Auto) 0.5 Neut % (Auto) 57.4 Lymph % (Auto) 27.7 [place] % (Auto) 10.0 H Eos % (Auto) 3.2 Baso % (Auto) 1.2 Lymph # (Auto) 2.46 [place] # (Auto) 0.9 H Eos # (Auto) 0.3 Baso # (Auto) 0.1 Abs Immat Gran (auto) 0.04 H Absolute Neuts (auto) 5.1 Absolute Nucleated RBC 0.000 Nucleated RBC % 0.0 Sodium 136 L Potassium 3.2 L Chloride 100 Carbon Dioxide 32 H Anion Gap 4 BUN 8 Creatinine 0.60 L Estim Creat Clear Calc 58 Estimated GFR > 60 Glucose 86 Calcium 9.0 Total Bilirubin 0.3 AST 18 ALT 7 Alkaline Phosphatase 57 Total Protein 6.0 L Albumin 3.0 L Quality VTE Prophylaxis VTE prophylaxis: mechanical ordered
[2023-12-28] MEDS: ALPRAZolam (*CRX) 0.5 MG TABLET PO (18:00)
[2023-12-28] MEDS: DIVALPROEX SODIUM ER 500 MG TAB.24H 1000 MG PO (20:37)
[2023-12-28] MEDS: ESCITALOPRAM OXALATE 10 MG TABLET PO (20:37)
[2023-12-28 21:27] VITALS: BP 140/66; PULSE 125; RESP 14; TEMP 36.5; O2SAT 94
[2023-12-29] MEDS: LEVOTHYROXINE SODIUM 75 MCG TABLET PO (05:24)
[2023-12-29] MEDS: GABAPENTIN 100 MG CAPSULE PO ×3 (05:24→20:27)
[2023-12-29 06:00] VITALS: BP 144/76; PULSE 122; RESP 20; TEMP 36.9; O2SAT 94
[2023-12-29 06:53] LABS: Basophils Absolute Auto 0.1 K/mm3 (0.0-0.1); Basophils Percent Auto 1.2 % (0.2-1.2); Eosinophils Absolute Auto 0.4 K/mm3 (0-0.3); Eosinophils Percent Auto 3.5 % (0-4.4); Hematocrit 36.9 % (37.0-47.0); Hemoglobin 12.2 g/dL (12.0-15.0); Immature Granulocyte Absolute 0.06 K/mm3 (0.00-0.031); Immature Granulocyte Percent A 0.5 % (0-0.5); Lymphocytes Absolute Auto 2.75 K/mm3 (0.9-3.2); Lymphocytes Percent Auto 23.5 % (18.3-44.2); Mean Corpuscular HGB Conc 33.1 g/dl (32-36); Mean Corpuscular Hemoglobin 31.9 pg (26-34); Mean Corpuscular Volume 96.6 fl (80-100); Mean Platelet Volume 9.5 fl (7.4-10.4); Monocytes Absolute Auto 1.3 K/mm3 (0.1-0.6); Neutrophils Percent Auto 60.3 % (45.5-73.1); Platelet Count Result 231 k/mm3 (150-375); Red Blood Count 3.82 M/mm3 (4.2-5.4); Red Cell Distribution Width 14.6 % (11.5-14.5); White Blood Count 11.7 K/mm3 (4.5-10.0)
[2023-12-29 07:04] LABS: Alanine Aminotransferase 8 U/L (6-35); Albumin Level 3.1 g/dL (3.5-5.1); Alkaline Phosphatase 61 U/L (38-126); Anion Gap 9 mmol/L (4-12); Aspartate Amino Transferase 16 U/L (14-36); Bilirubin,Total 0.3 mg/dL (0.2-1.3); Blood Urea Nitrogen 11 mg/dL (7-17); Carbon Dioxide 30 mmol/L (22-30); Chloride 99 mmol/L (98-107); Estimated CRCL calculation 58 ml/min; Estimated Glomerular Filt Rate > 60; Glucose 85 mg/dL (65-110); Potassium 3.2 mmol/L (3.4-5.0); Sodium 138 mmol/L (137-145)
--- NOTE | 2023-12-29 09:26 | PCOTNOTE ---
Attempted to see Patient at this time. Patient unable to stay awake, Per RN, Patient had a difficulty night and thinks she might be just tired. Patient has behavioral mood swings and is in/out with participating in tasks. Will try back later.
--- NOTE | 2023-12-29 09:42 | PCPTNOTE ---
Attempted to see patient for PT, however patient unable to be aroused enough to participate with PT. Patient would open her eyes to commands but unable to keep them open.
--- NOTE | 2023-12-29 12:45 | PCNFU ---
Nutrition Follow-Up Complete: Inadequate oral intake related to chronic loss of appetite as evidenced by prior malnutrition, which has improved Adequate PO intake at least 75% meals and supplements - not meeting goal. Intakes 0-25%. Continue with same goal Goal: Pt current nutrition is Regular diet. Ensure Clear TID for additional 240 kcal and 8 g protein each Nutrition recommendation: No new nutrition recommendations. Continue current nutrition care plan and orders. Agree with orders Last recorded weight is 47.5 kg. Bowel Motility: +1 BM 12/29/23 Labs Reviewed: Hct 36.9, Alb 3.1, K+ 3.2, Cre 0.6 Meds Noted: Megestrol, folic acid, Zofran Skin: No skin issues Additional Notes: Intakes are poor. Likely related to underlying bipolar. Continue with current nutrition care plan. Agree with nutrition orders. Monitoring intakes, weights, labs, meds, plan of care, supplement tolerance Follow up in 5 days
[2023-12-29] MEDS: DIVALPROEX SODIUM ER 500 MG TAB.24H PO (14:27)
[2023-12-29] MEDS: busPIRone HCL 10 MG TABLET PO ×2 (14:28→16:53)
[2023-12-29] MEDS: FOLIC ACID 0.4 MG TABLET 0.8 MG PO (14:28)
[2023-12-29] MEDS: ATORVASTATIN 40 MG TABLET 80 MG PO (14:28)
[2023-12-29] MEDS: CLOPIDOGREL BISULFATE 75 MG TABLET PO (14:28)
[2023-12-29] MEDS: CEFEPIME 2 GM/NS 50 ML 2 GM/50 ML BAG IVPB (14:29)
[2023-12-29] MEDS: ASPIRIN 81 MG ENTERIC TABLET PO (14:29)
[2023-12-29] MEDS: SODIUM CHLORIDE 1 GM TABLET PO ×2 (14:29→16:52)
[2023-12-29] MEDS: buPROPion HCL XL (24 HR) 150 MG TABCR PO (14:29)
[2023-12-29] MEDS: SODIUM CHLORIDE 500 MG TABLET PO ×2 (14:29→16:52)
[2023-12-29] MEDS: MIDODRINE HCL 2.5 MG TABLET 5 MG PO ×2 (14:29→16:52)
[2023-12-29] MEDS: ENOXAPARIN 40 MG/0.4 ML SYRINGE SUB-Q (14:30)
[2023-12-29] MEDS: DOXYCYCLINE 100 MG/NS 100 ML 100 MG/100 ML BAG IVPB (15:34)
[2023-12-29 15:40] VITALS: BP 80/52; PULSE 77; RESP 20; TEMP 36.4; O2SAT 95
[2023-12-29] MEDS: SODIUM CHLORIDE 0.9% IV 500 ML IV CONT (15:55)
[2023-12-29 16:32] LABS: MRSA (PCR) NOT DETECTED (NOT DETECTE)
--- NOTE | 2023-12-29 16:39 | P.PNIM_ITS ---
Progress Note: A&P Assessment and Plan (1) Adult failure to thrive: Code(s): R62.7 - Adult failure to thrive Status: Chronic Plan Altered mental status Dementia versus acute encephalopathy Patient is alert, not oriented x3, on no baseline of mental status. Patient has no focal weakness, CT head shows no acute intracranial issue, normal aging brain Follow-up brain MRI with without contrast Adult failure to thrive/Moderate protein energy malnutrition Code(s): R62.7 - Adult failure to thrive Status: Chronic Assessment and Plan: --left [facility] about [facility] week ago to live with family, progressively got weaker since that time. Family unable to care for her at home due to her progressive weakness. Patient is well known to our service at [facility]. She has had multiple admissions for FTT, muscular deconditioning, frequent falls, weakness, and malnutrition. * PT and OT recommends SNF placement * Patient no having adequate oral intake * data security coordinator following and awaiting SNF placement Pneumonia patient was lethargic this morning and CT chest showed bilateral pneumonia Blood culture and MRSA pending continue Cefepime, Doxycycline and Vanc monitor Physical deconditioning Patient has a general weakness, muscle weakness, a frequent fall Resulting from aging, adult failure to thrive and man nutrition Continue PT/OT while waiting for placement Hyponatremia, resolved Upon arrival, sodium 129 below the baseline 136 December 02 likely from poor oral intake now on adequate intake Na 139 today (6) Bipolar disorder: Code(s): F31.9 - Bipolar disorder, unspecified Status: Chronic Assessment and Plan: * continue divalproex, BuSpar and trazodone(7) Hypothyroidism: Code(s): E03.9 - Hypothyroidism, unspecified Status: Chronic Assessment and Plan: * Continue Synthroid * TSH was 1.98 on 12/14/23(8) Depression: Code(s): F32.9 - Major depressive disorder, single episode, unspecified Status: Chronic Assessment and Plan: * continue escitalopram(9) Hyperlipidemia: Code(s): E78.5 - Hyperlipidemia, unspecified Status: Chronic Assessment and Plan: * continue aspirin and atorvastatin * Awaiting SNF placement DVT prophylaxis on Sq Lovenox Subjective Date/time seen: 12/29/23 16:39 Interval history: comfortable at bedside and awaiting placement Review of Systems Review of Systems: FTT All systems reviewed & are unremarkable except as noted in HPI and below ROS unobtainable: Yes unobtainable due to mental status Exam Narrative: GENERAL: Pleasant, in no acute distress. Well-nourished. - EYES: EOMI. Anicteric. - HENT: Moist mucous membranes. - LUNGS: Clear to auscultation bilateral ly, no wheezing, rhonchi, or rales. - CARDIOVASCULAR: Regular rate and rhyth m. No murmur. No JVD. - ABDOMEN: Soft, non-tender and non-dist ended. No palpable masses. - EXTREMITIES: No edema. Peripheral puls es 2+. Non-tender. - NEUROLOGIC: No focal neurological defi cits. CN II-XII grossly intact. - PSYCHIATRIC: Awake, not oriented x 3. Appropriate mood and affect. - SKIN: No rashes or lesions. Warm. - LYMPH: No cervical lymphadenopathy. Objective Data Vital Signs Vital Signs: Vital Signs - 24 hr 12/28/23 21:27 12/28/23 20:00 12/29/23 06:00 Temperature 97.7 F 98.5 F Pulse Rate 125 H 122 H Respiratory Rate 14 20 Blood Pressure 140/66 144/76 H Pulse Oximetry 94 94 Oxygen Delivery Room Air Fraction of Inspired Oxygen 21 12/29/23 15:40 Temperature 97.6 F Pulse Rate 77 Respiratory Rate 20 Blood Pressure 80/52 L Pulse Oximetry 95 Oxygen Delivery Fraction of Inspired Oxygen Intake/Output Intake/Output: Intake & Output 12/26/23 12/27/23 12/28/23 12/29/23 23:59 23:59 23:59 23:59 Intake Total 790 1100 680 0 Output Total 800 1350 1100 830 Balance -10 -250 -420 -830 Meds/Results Medications: Active Medications Generic Name Dose Route Start Last Admin Trade Name Freq PRN Reason Stop Dose Admin Acetaminophen 650 mg 12/23/23 15:42 12/26/23 20:12 Acetaminophen 325 Mg Tablet PO 650 mg Q4H PRN Administration Mild Pain (1-3) or Fever Albuterol 2.5 mg 12/26/23 11:44 12/26/23 11:58 Albuterol Sulfate Neb 2.5 Mg/3 Ml Inh INHALATION 2.5 mg Q4HRT PRN Administration Shortness Of Breath Aspirin 81 mg 12/24/23 09:00 12/29/23 14:29 Aspirin 81 Mg Enteric Tablet PO 81 mg QAM MINH Administration Atorvastatin Calcium 80 mg 12/24/23 09:00 12/29/23 14:28 Atorvastatin 40 Mg Tablet PO 80 mg DAILY MINH Administration Bupropion HCl 150 mg 12/24/23 09:00 12/29/23 14:29 Bupropion Hcl Xl (24 Hr) 150 Mg Tabcr PO 150 mg DAILY MINH Administration Buspirone HCl 10 mg 12/24/23 09:00 12/29/23 14:28 Buspirone Hcl 10 Mg Tablet PO 10 mg BID MINH Administration Clopidogrel Bisulfate 75 mg 12/24/23 09:00 12/29/23 14:28 Clopidogrel Bisulfate 75 Mg Tablet PO 75 mg DAILY MINH Administration Dextrose 12.5 gm 12/23/23 15:45 Dextrose 50% 25 Gm/50 Ml Syringe IV PUSH PRN PRN Hypoglycemia Protocol Divalproex Sodium 1,000 mg 12/23/23 21:00 12/28/23 20:37 Divalproex Sodium Er 500 Mg Tab.24h PO 1,000 mg HS MINH Administration Divalproex Sodium 500 mg 12/24/23 09:00 12/29/23 14:27 Divalproex Sodium Er 500 Mg Tab.24h PO 500 mg QAM MINH Administration Enoxaparin Sodium 40 mg 12/27/23 09:00 12/29/23 14:30 Enoxaparin 40 Mg/0.4 Ml Syringe SUB-Q 40 mg DAILY MINH Administration Escitalopram Oxalate 10 mg 12/23/23 21:00 12/28/23 20:37 Escitalopram Oxalate 10 Mg Tablet PO 10 mg HS MINH Administration Folic Acid 0.8 mg 12/24/23 09:00 12/29/23 14:28 Folic Acid 0.4 Mg Tablet PO 0.8 mg QAM MINH Administration Gabapentin 100 mg 12/23/23 22:00 12/29/23 14:35 Gabapentin 100 Mg Capsule PO 100 mg Q8HR MINH Administration Glucose 15 gm 12/23/23 15:45 Glucose Oral Gel 15 Gm Of Glucse In 37.5 Gm Tube PO PRN PRN Hypoglycemia Protocol Dextrose 1,000 mls @ 100 mls/hr 12/23/23 15:45 Dextrose 5% 1,000 Ml IVPB PRN PRN Hypoglycemia Protocol Cefepime HCl 2 gm in 50 mls @ 100 mls/hr 12/29/23 14:00 12/29/23 14:29 Maxipime 2 Gm/Ns 50 Ml IVPB 100 mls/hr Q12H MINH Administration Doxycycline Hyclate 100 mg in 100 mls @ 100 mls/hr 12/29/23 15:00 12/29/23 15:34 Vibramycin 100 Mg/Ns 100 Ml IVPB 100 mls/hr Q12H MINH Administration Vancomycin HCl 1,250 mg in 250 mls @ 166.667 mls/hr 12/29/23 16:00 Vancomycin 1,250 Mg/Ns 250 Ml IVPB 12/29/23 17:29 ONCE ONE Vancomycin HCl 1,000 mg in 250 mls @ 250 mls/hr 12/30/23 16:00 Vancomycin 1,000 Mg/Ns 250 Ml IVPB Q24H MINH Sodium Chloride 500 mls @ 500 mls/hr 12/29/23 16:02 Normal Saline Iv IV CONT 12/29/23 17:01 .Q1H STA Sodium Chloride 1,000 mls @ 100 mls/hr 12/29/23 16:05 Normal Saline Iv IV CONT .Q10H MINH Levothyroxine Sodium 75 mcg 12/24/23 06:30 12/29/23 05:24 Levothyroxine Sodium 75 Mcg Tablet PO 75 mcg DAILY@0630 MINH Administration Megestrol Acetate 40 mg 12/23/23 19:25 Megestrol Acetate (*Chemo) 40 Mg Tablet PO QID PRN loss of appetite Midodrine 5 mg 12/24/23 09:00 12/29/23 16:04 Midodrine Hcl 2.5 Mg Tablet PO Not Given TID MINH Ondansetron HCl 4 mg 12/23/23 14:33 Ondansetron Inj 4 Mg/2 Ml Vial IV PUSH Q4H PRN Nausea Sodium Chloride 1 gm 12/24/23 09:00 12/29/23 14:29 Sodium Chloride 1 Gm Tablet PO 1 gm BID MINH Administration Sodium Chloride 500 mg 12/24/23 09:00 12/29/23 14:29 Sodium Chloride 500 Mg Tablet PO 500 mg BID MINH Administration Trazodone HCl 100 mg 12/25/23 08:32 12/27/23 20:56 Trazodone Hcl 50 Mg Tablet PO 100 mg QHS PRN Administration Insomnia Radiology Results: ITS Impressions Cervical Spine CT 12/23/23 12:23 IMPRESSION: 1. No fracture. 2. Severe cervical spondylosis. Hip/Pelvis X-Ray 12/23/23 12:30 IMPRESSION: 1. Mild osteoarthritis of the hips. Knee X-Ray 12/23/23 12:31 IMPRESSION: 1. Normal left knee. Abdomen/Pelvis CT 12/23/23 13:16 IMPRESSION: 1. 2 mm nonobstructing left kidney stone. 2. 3.0 cm fusiform aneurysm of infrarenal aorta. Brain MRI 12/25/23 14:11 IMPRESSION: 1. Normal aging brain. Chest X-Ray 12/29/23 11:33 IMPRESSION: 1. No acute cardiopulmonary disease. Head CT 12/29/23 12:45 IMPRESSION: 1. Normal aging brain with mild diffuse on loss and mild scattered white matter hypoattenuation consistent with chronic small vessel ischemic disease. No acute intercranial process. Chest CT 12/29/23 12:51 IMPRESSION: 1. Mild emphysema with bilateral lower lobe pneumonia. 2. Ectatic ascending thoracic aorta measuring up to 3.9 cm with unchanged small penetrating atherosclerotic ulcer versus saccular aneurysm along the inferior margin of the aortic arch, unchanged since 05/28/2023 Labs Labs: Laboratory Results - last 24 hr 12/29/23 12/29/23 06:40 15:10 WBC 11.7 H RBC 3.82 L Hgb 12.2 Hct 36.9 L MCV 96.6 MCH 31.9 MCHC 33.1 RDW 14.6 H Plt Count 231 MPV 9.5 Immature Gran % (Auto) 0.5 Neut % (Auto) 60.3 Lymph % (Auto) 23.5 [place] % (Auto) 11.0 H Eos % (Auto) 3.5 Baso % (Auto) 1.2 Lymph # (Auto) 2.75 [place] # (Auto) 1.3 H Eos # (Auto) 0.4 H Baso # (Auto) 0.1 Abs Immat Gran (auto) 0.06 H Absolute Neuts (auto) 7.0 H Absolute Nucleated RBC 0.000 Nucleated RBC % 0.0 Sodium 138 Potassium 3.2 L Chloride 99 Carbon Dioxide 30 Anion Gap 9 BUN 11 Creatinine 0.60 L Estim Creat Clear Calc 58 Estimated GFR > 60 Glucose 85 Calcium 9.0 Total Bilirubin 0.3 AST 16 ALT 8 Alkaline Phosphatase 61 Total Protein 7.0 Albumin 3.1 L Nasal MRSA (PCR) Not detected Quality VTE Prophylaxis VTE prophylaxis: mechanical ordered
[2023-12-29] MEDS: VANCOMYCIN 1,250 MG/NS 250 ML 1,250 MG/250 ML BAG 166.67 MG IVPB (16:47)
[2023-12-29] MEDS: SODIUM CHLORIDE 0.9% IV 1,000 ML 100 ML IV CONT (16:48)
[2023-12-29 16:55] VITALS: BP 102/64
[2023-12-29] MEDS: ESCITALOPRAM OXALATE 10 MG TABLET PO (20:27)
[2023-12-29] MEDS: DIVALPROEX SODIUM ER 500 MG TAB.24H 1000 MG PO (20:28)
[2023-12-29 21:53] VITALS: BP 133/70; PULSE 76; RESP 16; TEMP 37.1; O2SAT 96
[2023-12-30] MEDS: CEFEPIME 2 GM/NS 50 ML 2 GM/50 ML BAG IVPB ×2 (01:12→12:52)
[2023-12-30] MEDS: DOXYCYCLINE 100 MG/NS 100 ML 100 MG/100 ML BAG IVPB ×2 (02:22→15:09)
[2023-12-30] MEDS: SODIUM CHLORIDE 0.9% IV 1,000 ML 100 ML IV CONT ×2 (03:29→12:49)
[2023-12-30] MEDS: GABAPENTIN 100 MG CAPSULE PO ×2 (05:27→15:10)
[2023-12-30] MEDS: LEVOTHYROXINE SODIUM 75 MCG TABLET PO (05:27)
[2023-12-30 06:00] VITALS: BP 154/90; PULSE 75; RESP 16; TEMP 37.7; O2SAT 96
[2023-12-30 07:37] LABS: Basophils Absolute Auto 0.1 K/mm3 (0.0-0.1); Basophils Percent Auto 0.9 % (0.2-1.2); Eosinophils Absolute Auto 0.2 K/mm3 (0-0.3); Eosinophils Percent Auto 1.5 % (0-4.4); Hemoglobin 11.1 g/dL (12.0-15.0); Immature Granulocyte Absolute 0.06 K/mm3 (0.00-0.031); Immature Granulocyte Percent A 0.5 % (0-0.5); Lymphocytes Absolute Auto 2.65 K/mm3 (0.9-3.2); Lymphocytes Percent Auto 24.1 % (18.3-44.2); Mean Corpuscular HGB Conc 33.6 g/dl (32-36); Mean Corpuscular Hemoglobin 31.7 pg (26-34); Mean Corpuscular Volume 94.3 fl (80-100); Mean Platelet Volume 9.7 fl (7.4-10.4); Monocytes Absolute Auto 1.6 K/mm3 (0.1-0.6); Monocytes Percent Auto 14.3 % (2.6-8.5); Neutrophils Absolute Auto 6.4 K/mm3 (1.3-6.7); Neutrophils Percent Auto 58.7 % (45.5-73.1); Platelet Count Result 227 k/mm3 (150-375); Red Cell Distribution Width 14.3 % (11.5-14.5)
[2023-12-30 08:00] VITALS: PULSE 75; RESP 16; O2SAT 96
[2023-12-30] MEDS: FOLIC ACID 0.4 MG TABLET 0.8 MG PO (08:18)
[2023-12-30] MEDS: ASPIRIN 81 MG ENTERIC TABLET PO (08:19)
[2023-12-30] MEDS: SODIUM CHLORIDE 1 GM TABLET PO ×2 (08:20→16:22)
[2023-12-30] MEDS: CLOPIDOGREL BISULFATE 75 MG TABLET PO (08:20)
[2023-12-30] MEDS: MIDODRINE HCL 2.5 MG TABLET 5 MG PO ×3 (08:20→16:22)
[2023-12-30] MEDS: SODIUM CHLORIDE 500 MG TABLET PO ×2 (08:20→16:22)
[2023-12-30] MEDS: DIVALPROEX SODIUM ER 500 MG TAB.24H PO (08:20)
[2023-12-30] MEDS: busPIRone HCL 10 MG TABLET PO ×2 (08:20→16:22)
[2023-12-30 08:26] LABS: Alanine Aminotransferase 8 U/L (6-35); Albumin Level 2.8 g/dL (3.5-5.1); Alkaline Phosphatase 67 U/L (38-126); Anion Gap 11 mmol/L (4-12); Aspartate Amino Transferase 16 U/L (14-36); Bilirubin,Total 0.4 mg/dL (0.2-1.3); Blood Urea Nitrogen 10 mg/dL (7-17); Calcium 8.5 mg/dL (8.4-10.2); Carbon Dioxide 21 mmol/L (22-30); Chloride 103 mmol/L (98-107); Estimated CRCL calculation 68 ml/min; Estimated Glomerular Filt Rate > 60; Glucose 81 mg/dL (65-110); Magnesium 1.7 mg/dL (1.6-2.3); Potassium 2.7 mmol/L (3.4-5.0); Sodium 135 mmol/L (137-145)
[2023-12-30] MEDS: buPROPion HCL XL (24 HR) 150 MG TABCR PO (08:32)
[2023-12-30] MEDS: ENOXAPARIN 40 MG/0.4 ML SYRINGE SUB-Q (08:32)
[2023-12-30] MEDS: ATORVASTATIN 40 MG TABLET 80 MG PO (08:33)
[2023-12-30] MEDS: MAGNESIUM SULF 2 GM/WATER 50ML 2 GM/50 ML BAG IVPB (11:20)
[2023-12-30] MEDS: POTASSIUM CHLORIDE 20 MEQ PACKET (FOR LIQUID) 40 MEQ PO (11:20)
[2023-12-30] MEDS: POTASSIUM CHLORIDE INJ 40 MEQ in SODIUM CHLORIDE 0.9% IV 500 ML 130 MEQ IVPB (11:20)
[2023-12-30] MEDS: VANCOMYCIN 1,000 MG/NS 250 ML 1,000 MG/250 ML BAG 250 MG IVPB (11:29)
--- NOTE | 2023-12-30 11:39 | P.DS_ITS ---
DS: Admitting Diagnosis Discharge Date 12/30/23 Admitting Diagnosis Adult failure to thrive DS: Discharge Diagnosis Discharge Diagnosis (1) Adult failure to thrive: Code(s): R62.7 - Adult failure to thrive Status: Chronic (2) Hyponatremia: Code(s): E87.1 - Hypo-osmolality and hyponatremia Status: Acute DS: Summary Hospital Course Hospital Course: This is a 68 year old female with a significant past medical history AAA, bipolar disorder, cataracts, CHF, Depression, hyperlipidemia, hypothyroidism, malnutrition, muscular deconditioning, peripheral vascular disease, tobacco abuse, former smoker who presented to the hospital after sustaining a fall at home. Patient is not a good historian and most of the history of presenting illness was obtained from the EMR. Patient [facility] in a [facility] until last week when she went home to live with her daughter. It was noted that she fell when they were getting ready to go to an event outside the home. According to the family patient progressively got weaker since she was taken out of the penitentiary. Family states that they are unable to care for her at home due to her progressive weakness. Work up in the hospital includes a head CT which was negative, shown normal aging brain. Cervical spine CT was negative for fracture and shown severe cervical spondylosis. Hip and pelvis x-ray revealed mild OA of both hips. Left knee x-ray was negative. Chest x-ray was negative for any acute cardiopulmonary disease. Abdomen/pelvis CT shown a nonobstructing left kidney stone which measures 2mm, 3.0cm fusiform aneurysm of infrarenal aorta. Initial labs revealed a WBC 12.2, RBC 3.93, Na+ 135 otherwise unremarkable. Patient was started on IVF in the ER. Patient's Oral intake has improved markedly. The sodium has not improved from 129-135 status post IV fluid. Patient was diagnosed of pneumonia while in the hospital, and started on Cefepime and Doxycycline, MRSA negative. Patient looks much improved today. Discharge home cefpodoxime and doxycycline. Altered mental status markedly improved likely hyponatremia and pneumonia. PT/OT eval recommended sniff patient will discharge today to [facility] facility. Follow-up with PCP 3-5 days. Plan Altered mental status Dementia versus acute encephalopathy Patient is alert, not oriented x3, on no baseline of mental status. Patient has no focal weakness, CT head shows no acute intracranial issue, normal aging brain Follow-up brain MRI with without contrast Adult failure to thrive/Moderate protein energy malnutrition Code(s): R62.7 - Adult failure to thrive Status: Chronic Assessment and Plan: --left penitentiary about 1 week ago to live with family, progressively got weaker since that time. Family unable to care for her at home due to her progressive weakness. Patient is well known to our service at [facility]. She has had multiple admissions for FTT, muscular deconditioning, frequent falls, weakness, and malnutrition. * PT and OT recommends SNF placement * Patient no having adequate oral intake * quality improvement coordinator (rn) following and awaiting SNF placement Pneumonia patient was lethargic this morning and CT chest showed bilateral pneumonia Blood culture and MRSA negative continue Cefepime, Doxycycline and Vanc Discharged on cefpodoxime and doxycycline. Physical deconditioning Patient has a general weakness, muscle weakness, a frequent fall Resulting from aging, adult failure to thrive and man nutrition Continue PT/OT while waiting for placement Hyponatremia, resolved Upon arrival, sodium 129 below the baseline 136 December 02 likely from poor oral intake now on adequate intake Na 139 today (6) Bipolar disorder: Code(s): F31.9 - Bipolar disorder, unspecified Status: Chronic Assessment and Plan: * continue divalproex, BuSpar and trazodone(7) Hypothyroidism: Code(s): E03.9 - Hypothyroidism, unspecified Status: Chronic Assessment and Plan: * Continue Synthroid * TSH was 1.98 on 12/14/23(8) Depression: Code(s): F32.9 - Major depressive disorder, single episode, unspecified Status: Chronic Assessment and Plan: * continue escitalopram(9) Hyperlipidemia: Code(s): E78.5 - Hyperlipidemia, unspecified Status: Chronic Assessment and Plan: * continue aspirin and atorvastatin Time Spent with Patient Time attestation: Total time spent providing and/or coordinating discharge services: DS: Data Data Completed and Pending Labs on day of discharge: Labs from last 24 hours 12/30/23 12/29/23 06:24 15:10 WBC 11.0 H RBC 3.50 L Hgb 11.1 L Hct 33.0 L MCV 94.3 MCH 31.7 MCHC 33.6 RDW 14.3 Plt Count 227 MPV 9.7 Immature Gran % (Auto) 0.5 Neut % (Auto) 58.7 Lymph % (Auto) 24.1 [place] % (Auto) 14.3 H Eos % (Auto) 1.5 Baso % (Auto) 0.9 Lymph # (Auto) 2.65 [place] # (Auto) 1.6 H Eos # (Auto) 0.2 Baso # (Auto) 0.1 Abs Immat Gran (auto) 0.06 H Absolute Neuts (auto) 6.4 Absolute Nucleated RBC 0.000 Nucleated RBC % 0.0 Sodium 135 L Potassium 2.7 L* Chloride 103 Carbon Dioxide 21 L Anion Gap 11 BUN 10 Creatinine 0.50 L Estim Creat Clear Calc 68 Estimated GFR > 60 Glucose 81 Calcium 8.5 Magnesium 1.7 Total Bilirubin 0.4 AST 16 ALT 8 Alkaline Phosphatase 67 Total Protein 6.0 L Albumin 2.8 L Nasal MRSA (PCR) Not detected Preliminary micro results at discharge 12/29/23 13:53 Blood Culture - Preliminary Blood 12/29/23 13:53 Blood Culture - Preliminary Blood Discharge Plan Discharge Attending physician on discharge: Kai Vicente Consulting providers: Khanh Grayson Discharging Clinician: Kai Vicente Anticipated Discharge Date/Time: 12/30/23 11:35 Patient Disposition: SNF Activity: as tolerated Diet: as tolerated Stand Alone Forms: General Discharge Information Follow-up/Referrals: Louis Hughes DO [Primary Care Provider] - (follow PCP in 3-5 days.) Discharge Medications: New cefpodoxime 200 mg tablet 200 mg PO BID Qty: 10 0RF Rx Instructions: must administer with a meal/food doxycycline hyclate 100 mg capsule 100 mg PO BID 5 Days Qty: 10 0RF potassium chloride 20 mEq tablet extended release 20 meq PO BID Qty: 10 0RF Continued divalproex 500 mg tablet extended release 24 hr 1,000 mg PO HS levothyroxine 75 mcg tablet 75 mcg PO QAM Rx Instructions: TAKE 1 TABLET BY MOUTH EVERY DAY acetaminophen 325 mg Tablet 650 mg PO Q8H PRN (Reason: Mild Pain (1-3) Or Fever) Qty: 0 0RF bupropion HCl 150 mg tablet extended release 24 hr 150 mg PO DAILY Qty: 30 0RF buspirone 10 mg tablet 10 mg PO BID Vitamin B-12 tablet 2,500 mcg PO DAILY folic acid 800 mcg Tablet 0.8 mg PO DAILY escitalopram oxalate 10 mg tablet 10 mg PO HS clopidogrel 75 mg tablet 75 mg PO DAILY midodrine 5 mg tablet 5 mg PO TID Qty: 90 3RF Rx Instructions: do not give last dose of day after 6PM or within 4 hrs of bedtime trazodone 100 mg tablet 100 mg PO QHS Qty: 30 2RF sodium chloride 1,000 mg tablet,soluble 1,500 mg PO BID Qty: 60 0RF megestrol 40 mg tablet 40 mg PO QID PRN (Reason: loss of appetite) Qty: 30 0RF divalproex 500 mg Tablet Extended Release 24 Hr 500 mg PO QAM aspirin 81 mg Tablet,Delayed Release (Dr/Ec) 81 mg PO QAM 30 Days Qty: 30 0RF gabapentin 100 mg capsule See Rx Instructions .ROUTE .COMPLEX Qty: 90 0RF Dose Instruction: TAKE 1 CAPSULE BY MOUTH THREE TIMES A DAY Rx Instructions: TAKE 1 CAPSULE BY MOUTH THREE TIMES A DAY atorvastatin 80 mg tablet 80 mg PO DAILY Qty: 30 2RF Date of admission: 12/23/23 14:33 Primary Care Provider: Louis Hughes Admitting Provider: James Carlisle Attending physician on admission: James Carlisle Condition: Stable
[2023-12-30 14:00] VITALS: BP 130/52; PULSE 77; RESP 20; TEMP 36.5; O2SAT 96
== END 2023-12-30 19:05 ==
LOC: ANHED 14:30 → ANH2MED 12-24 01:22 → ANH3MEDSUR 12-30 11:39 → ANH2MED 01-01 09:00
PROVIDERS: Nurse Practitioner Acute Care; Admitting Provider Internal Medicine; Emergency Provider General Practice; PCP Family Medicine; Visit Provider Internal Medicine
DX: R62.7 Adult failure to thrive (principal); E44.0 Moderate protein-calorie malnutrition; Z68.1 Body mass index [BMI] 19.9 or less, adult; W19.XXXA Unspecified fall, initial encounter; R29.6 Repeated falls; J18.9 Pneumonia, unspecified organism; E87.1 Hypo-osmolality and hyponatremia; R41.82 Altered mental status, unspecified; M47.892 Other spondylosis, cervical region; M16.0 Bilateral primary osteoarthritis of hip; I50.9 Heart failure, unspecified; I71.21 Aneurysm of the ascending aorta, without rupture; F31.9 Bipolar disorder, unspecified; H26.9 Unspecified cataract; E78.5 Hyperlipidemia, unspecified; I73.9 Peripheral vascular disease, unspecified; R29.898 Other symptoms and signs involving the musculoskeletal system; E03.9 Hypothyroidism, unspecified; Z74.1 Need for assistance with personal care; Z75.1 Person awaiting admission to adequate facility elsewhere; Z79.899 Other long term (current) drug therapy; Z87.891 Personal history of nicotine dependence
CPT/HCPCS: 36415; 36600; 70450; 70553; 71045; 71250; 72125; 73502; 73562; 74176; 80053; 80307; 81001; 82077; 82375; 82805; 83050; 83735; 85018; 85025; 85730; 87040; 87641; 93005; 94640; 96361; 96365; 96366; 96368; 96372; 96375; 96376; 97110; 97116; 97161; 97166; 97530; 97535; 99285; A9270; A9577; G0378; J0692; J1200; J1650; J3370; J3475; J3480; J7030; J7040

== ENCOUNTER 2024-01-13 19:27 | Emergency (ER) | payer MEDICARE, SELFPAY ==
[2024-01-13] VITALS (13 sets, daily range): BP systolic 93–148; BP diastolic 50–96; PULSE 63–72; RESP 13–22; TEMP 36.6; O2SAT 97–100
--- NOTE | ~2024-01-13 | CT_ITS ---
EXAMINATION: CT facial & cervical spine wo DATE: 01/13/2024 21:31 INDICATION: fall, nasal brusie, neck pain TECHNIQUE: Computed tomography (CT) of the maxillofacial region and cervical spine was performed with out intravenous contrast. Automated exposure control and iterative reconstruction technique were empl oyed. The dose-length product was 117.20 mGy-cm. COMPARISON: CT C-spine 11/23/2020 FINDINGS: CERVICAL: Vertebral Body Alignment: Intact. Craniocervical and atlantoaxial alignment: Moderate degenerative change. Alignment intact. Osseous structures/fracture: No evidence of a lytic or blastic process in the visualized spine. No e vidence of acute fracture. Cervical soft tissues: The paraspinal soft tissues planes are maintained. Biapical pleural scarring. Stable right upper lobe granuloma. Degenerative changes: Multilevel degenerative disc disease and facet arthropathy. Severe left neural foraminal narrowing at C5-6 secondary to degenerative facet and uncovertebral joint changes. No sever e central canal narrowing. FACE: Soft Tissues: No significant superficial soft tissue swelling. Facial bones: No acute fracture. No lytic or blastic process. Eyes: The globes are intact. The soft tissue planes of the orbits are maintained. Bilateral lens re placements. Paranasal Sinuses: Mild right maxillary and ethmoid mucosal thickening, the remaining aerated spaces are clear. Foreign Bodies: No radiopaque foreign bodies. Other Findings: None. IMPRESSION: No acute fracture or traumatic malalignment in the cervical spine. No acute facial bone fracture. Reviewed, dictated and finalized at location K. NTEER RECRUITMENT COORDINATOR IMPRESSION: No acute fracture or traumatic malalignment in the cervical spine. No acute fac ial bone fracture.
--- NOTE | ~2024-01-13 | CT_ITS ---
EXAMINATION: CT brain wo con DATE: 01/13/2024 21:31 INDICATION: fall . TECHNIQUE: Computed tomography (CT) of the head was performed with intravenous contrast. The mA was a djusted according to patient size. Iterative reconstruction technique was employed. The dose-length p roduct was 681.00 mGy-cm. COMPARISON: 12/29/2023. FINDINGS: No acute intracranial hemorrhage or extra-axial fluid collection. No hydrocephalus, mass, or herniation. No acute ischemic infarct. Unremarkable dural venous sinus attenuation. No acute osseous abnormality. The aerated spaces are clear. Mild atrophy and chronic white matter change. Atherosclerotic intracranial calcification. Bilateral l ens replacements. IMPRESSION: No acute intracranial process. Reviewed, dictated and finalized at location K. SCULPTOR
--- NOTE | 2024-01-13 20:28 | ED.FALL ---
HPI - Fall General Chief Complaint: Fall Stated Complaint: fall Time Seen by Provider: 01/13/24 19:48 Source: patient Mode of arrival: ambulatory Limitations: no limitations History of Present Illness HPI Narrative: This is a 68 year old female with PMH of CHF, failure to thrive, bipolar who presents to the ED via EMS from [facility] with chief complaint of a fall. Patient was sitting in wheelchair and fell face forward hitting the ground. His she suffered a laceration to the nose and bottom lip. No blood thinners on board. She is alert oriented x2, at her baseline. She has complaints of neck pain but no other site of injury. Related Data Home Medications Medication Instructions Recorded Confirmed divalproex 500 mg tablet,extended 1,000 mg PO HS 03/17/23 12/23/23 release 24 hr levothyroxine 75 mcg tablet 75 mcg PO QAM 03/17/23 12/23/23 divalproex 500 mg tablet,extended 500 mg PO QAM 03/31/23 12/23/23 release 24 hr escitalopram oxalate 10 mg tablet 10 mg PO HS 05/03/23 12/23/23 folic acid 800 mcg tablet 0.8 mg PO DAILY 05/03/23 12/23/23 Vitamin B-12 2,500 mcg PO DAILY 05/19/23 12/23/23 buspirone 10 mg tablet 10 mg PO BID 05/19/23 12/23/23 clopidogrel 75 mg tablet 75 mg PO DAILY 06/07/23 12/23/23 Allergies Allergy/AdvReac Type Severity Reaction Status Date / Time No Known Allergies Allergy Verified 12/14/23 08:10 Review of Systems Review of Systems: All systems as dictated in HPI [facility] Past Medical History Medical History Ascending aortic aneurysm Bipolar disorder Cataracts, bilateral CHF (congestive heart failure) Depression Dysuria Hyperlipidemia Hypothyroidism Left shoulder pain Malnutrition Muscular deconditioning On valproic acid therapy Peripheral vascular disease Seasonal allergies Tobacco abuse Surgical History Surgical History History of carpal tunnel surgery Family History Family History Other Unknown family medical history Social History Social History Smoking packs per day: 1 Smoking cigarettes per day: 20.0 Years smoked: 10 Smoking pack-years: 10.00 Smoking status: Former smoker Alcohol intake: never Substance use: never Substance use type: does not use Do You Feel Safe in your Home?: Yes Lack of Transportation: No Lack of Food: Never True Current Housing: I Do Not Have Housing Concerned About Future Housing: No Difficulty Paying Gas/Electric Bills: No Difficulty Paying for Meds: No Currently Unemployed: No Education: Grade School Difficulty w/ Childcare or Family Care: No Living arrangements: with family Additional living arrangements comments: . 3 adult children. Spiritual care concerns: No Exam Narrative: GENERAL: Well-appearing, well-nourished, and in no acute distress. HEAD: Normocephalic, atraumatic. EYES: PERRLA and EOMI. ENT: Nares clear, no rhinorrhea or epistaxis. Mucous membranes moist. Oropharynx without tonsillar hypertrophy exudate or other lesions. NECK: Supple. No adenopathy or masses. CHEST: No respiratory distress. Clear to auscultation. No wheezes rales or rhonchi HEART: Regular rate and rhythm. No murmur heard. Normal peripheral pulses. ABDOMEN: Soft, nontender, nondistended, normal active bowel sounds. MSK: Normal range of motion. No edema. SKIN: Warm, dry, no rash. NEURO: Alert and oriented x4. No focal deficits. PSYCH: Normal mood and affect. Course Vital Signs Vital signs: Vital Signs Temperature 97.8 F 01/13/24 19:24 Pulse Rate 69 01/13/24 19:24 Respiratory Rate 17 01/13/24 19:24 Blood Pressure 137/96 H 01/13/24 19:24 Pulse Oximetry 100 01/13/24 19:24 Oxygen Delivery Room Air 01/13/24 19:24 Temperature 97.8 F 01/13/24 19:24 Pulse Rate 69 01/13/24 19:24 Respiratory Rate 17 01/13/24 19:24 Blood Pressure 137/96 H 01/13/24 19:24 Pulse Oximetry 100 01/13/24 19:24 Oxygen Delivery Room Air 01/13/24 19:24 MDM - Fall MDM Narrative Medical decision making narrative: This is a 68 yo female who presents to the ED for chief complaint of a fall. She is alert oriented x2 and at her baseline. Vitals are normal. Exam shows mild bruising to the nasal bridge with are minor abrasion to nose and lower lip. No gaping wounds requiring sutures today. The wounds were well cleansed and bandaged. CT imaging of the head, neck, facial bones are negative for acute findings. Patient will be discharged in stable condition. Supportive measures discussed and return precautions given. Patient is understanding and agreeable with plan for discharge with PCP follow-up. Discharge Plan Discharge Clinical Impression: Traumatic ecchymosis of nose, Fall Patient Disposition: [place] Long Term/Asst Living Condition: Stable Instructions: Antibiotic Form Additional Instructions: Exam and imaging today are reassuring. No fractures or brain bleed. If you have any new or worsening symptoms please return to the ER for further evaluation. Prescriptions: No Action divalproex 500 mg tablet extended release 24 hr 1,000 mg PO HS levothyroxine 75 mcg tablet 75 mcg PO QAM Rx Instructions: TAKE 1 TABLET BY MOUTH EVERY DAY acetaminophen 325 mg Tablet 650 mg PO Q8H PRN (Reason: Mild Pain (1-3) Or Fever) Qty: 0 0RF bupropion HCl 150 mg tablet extended release 24 hr 150 mg PO DAILY Qty: 30 0RF buspirone 10 mg tablet 10 mg PO BID Vitamin B-12 tablet 2,500 mcg PO DAILY folic acid 800 mcg Tablet 0.8 mg PO DAILY escitalopram oxalate 10 mg tablet 10 mg PO HS clopidogrel 75 mg tablet 75 mg PO DAILY midodrine 5 mg tablet 5 mg PO TID Qty: 90 3RF Rx Instructions: do not give last dose of day after 6PM or within 4 hrs of bedtime trazodone 100 mg tablet 100 mg PO QHS Qty: 30 2RF sodium chloride 1,000 mg tablet,soluble 1,500 mg PO BID Qty: 60 0RF megestrol 40 mg tablet 40 mg PO QID PRN (Reason: loss of appetite) Qty: 30 0RF divalproex 500 mg Tablet Extended Release 24 Hr 500 mg PO QAM aspirin 81 mg Tablet,Delayed Release (Dr/Ec) 81 mg PO QAM 30 Days Qty: 30 0RF potassium chloride 20 mEq tablet extended release 20 meq PO BID Qty: 10 0RF cefpodoxime 200 mg tablet 200 mg PO BID Qty: 10 0RF Rx Instructions: must administer with a meal/food doxycycline hyclate 100 mg capsule 100 mg PO BID 5 Days Qty: 10 0RF gabapentin 100 mg capsule See Rx Instructions .ROUTE .COMPLEX Qty: 90 0RF Dose Instruction: TAKE 1 CAPSULE BY MOUTH THREE TIMES A DAY Rx Instructions: TAKE 1 CAPSULE BY MOUTH THREE TIMES A DAY atorvastatin 80 mg tablet 80 mg PO DAILY Qty: 30 2RF Follow-up/Referrals: Louis Hughes DO [Primary Care Provider] - Stand Alone Forms: Snf Discharge Time of Disposition: 22:19
[2024-01-14 00:16] VITALS: BP 151/92; PULSE 64; RESP 27
[2024-01-14 04:12] VITALS: BP 124/61; PULSE 65; RESP 17; O2SAT 96
== END 2024-01-14 06:05 ==
PROVIDERS: Emergency Provider Physician Assistant; PCP Family Medicine
DX: S00.33XA Contusion of nose, initial encounter (principal); I50.9 Heart failure, unspecified; I73.9 Peripheral vascular disease, unspecified; E78.5 Hyperlipidemia, unspecified; E03.9 Hypothyroidism, unspecified; F31.9 Bipolar disorder, unspecified; Z87.891 Personal history of nicotine dependence; Z79.899 Other long term (current) drug therapy; Z79.02 Long term (current) use of antithrombotics/antiplatelets; W05.0XXA Fall from non-moving wheelchair, initial encounter
CPT/HCPCS: 70450; 70486; 72125; 99284

== ENCOUNTER 2024-01-18 11:27 | Emergency (ER) | payer MEDICARE, SELFPAY ==
[2024-01-18] VITALS (10 sets, daily range): BP systolic 73–158; BP diastolic 42–88; PULSE 65–80; RESP 16–25; TEMP 36.7–37.1; O2SAT 98–100
--- NOTE | ~2024-01-18 | CT_ITS ---
EXAMINATION: CT abdomen pelvis w con DATE: 01/18/2024 14:35 INDICATION: Abdominal pain and nausea TECHNIQUE: Computed tomography (CT) of the abdomen and pelvis was performed with 100 mL Omnipaque-350 intravenous contrast. Automated exposure control and iterative reconstruction technique were employe d. The dose-length product was 195.82 mGy-cm. COMPARISON: 12/23/2023 FINDINGS: Lung bases are clear. Heart size is normal. Mitral annular and aortic valve calcification. No pericar dial or pleural effusion. Common bile duct measures up to 10 mm in maximal diameter and there is mild intrahepatic ductal or ductal dilation without evident obstructing stone or mass likely related to p rior cholecystectomy and hysterectomy with cholecystectomy clips at the gallbladder fossa. Spleen, pa ncreas, bilateral adrenal glands and kidneys are normal. There is mild colonic diverticulosis with a sigmoid predominance. There is no adjacent inflammatory change to suggest diverticulitis. Small bow el and appendix are normal. Bladder is normal. The uterus is not identified and has likely been surgi dameon resected. There is calcified atherosclerosis of the aorta and many of the other arteries. No fr ee intraperitoneal gas or fluid. No pathologically enlarged abdominal or pelvic lymphadenopathy. A co uple heterotopic ossicles at the umbilicus. Stable appearance of an L3 burst fracture. Severe lumbar spondylosis including 9 mm anterolisthesis L4 on L5. IMPRESSION: 1. No acute intra-abdominal/pelvic process. 2. Intra and extra hepatic ductal dilation without evident obstructing stone or mass likely related t o prior cholecystectomy with sphincterotomy. Correlate with liver function tests and if clinically in dicated could consider MRCP for further evaluation. Reviewed, dictated and finalized at location B. CONCIERGE IMPRESSION: 1. No acute intra-abdominal/pelvic process. 2. Intra and extra hepatic ductal dilation without evident obstructing stone or mass likely related to prior cholecystectomy with sphincterotomy. Correlate wi th liver function tests and if clinically indicated could consider MRCP for fur ther evaluation.
--- NOTE | ~2024-01-18 | CT_ITS ---
EXAMINATION: CT brain wo con DATE: 01/18/2024 14:35 INDICATION: Fall with head injury TECHNIQUE: Computed tomography (CT) of the head was performed without intravenous contrast. Sagittal and coronal reconstructions were performed. The mA was adjusted according to patient size. Iterative reconstruction technique was employed. The dose-length product was 529.67 mGy-cm. COMPARISON: head CT dated 01/13/2024 FINDINGS: No fracture. No acute intracranial hemorrhage, acute infarction or abnormal extra axial fluid collect ion. There is mild scattered white matter hypoattenuation consistent with chronic small vessel ischem ic disease. Symmetric prominence of the sulci and ventricles consistent with moderate age-appropriate diffuse cerebral volume loss. No mass/mass effect. Changes of bilateral intraocular lens replacement . The orbits, paranasal sinuses and mastoid air cells are normal. Changes of bilateral intraocular le ns replacement. IMPRESSION: 1. No fracture or acute intracranial process. 2. Age-related changes including moderate diffuse volume loss and mild scattered white matter hypoatt enuation consistent with chronic small vessel ischemic disease. Reviewed, dictated and finalized at location B. NT DEVELOPMENT CONSULTANT IMPRESSION: 1. No fracture or acute intracranial process. 2. Age-related changes including moderate diffuse volume loss and mild scattere d white matter hypoattenuation consistent with chronic small vessel ischemic di sease.
--- NOTE | ~2024-01-18 | XR_ITS ---
EXAMINATION: XR chest 1V DATE: 01/18/2024 14:42 INDICATION: Cough and shortness of breath TECHNIQUE: frontal view of the chest was obtained. COMPARISON: Chest radiograph and CT dated 12/29/23 FINDINGS: The lungs are clear with no focal airspace opacities, pulmonary edema, pleural effusion or pneumothor ax. Heart size is normal. Ectatic aortic arch measuring up to 3.7 cm. Bilateral rotator cuff arthropa thy with severe glenohumeral osteoarthritis. IMPRESSION: 1. No acute cardiopulmonary disease. Reviewed, dictated and finalized at location B. CATTLE GRAZIER
--- NOTE | 2024-01-18 12:59 | ECG_ITS ---
Test Date: 2024-01-18 13:54:00 Measurements Intervals [place] Rate: 68 P: 80 WA: 118 QRS: 34 QRSD: 77 T: 67 QT: 394 QTc: 420 Interpretive Statements SINUS RHYTHM BASELINE ARTIFACT- I, III, AVR, AVL, AVF, V1-V2 NORMAL ECG Compared to ECG 12/23/2023 14:35:41 NO SIGNIFICANT CHANGE Electronically Signed On 01-18-2024 14:03:02 DESK SERGEANT by Lazaro Zavala D.O.
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
[2024-01-18] MEDS: ONDANSETRON HCL ODT 4 MG TABLET PO (13:33)
[2024-01-18] MEDS: MORPHINE SULFATE (*CRX) 2 MG/ML INJ IV PUSH (13:33)
[2024-01-18] MEDS: SODIUM CHLORIDE 0.9% IV 1,000 ML 999 ML IV CONT ×2 (13:33→16:55)
[2024-01-18 14:02] LABS: Basophils Absolute Auto 0.1 K/mm3 (0.0-0.1); Basophils Percent Auto 0.6 % (0.2-1.2); Eosinophils Absolute Auto 0.5 K/mm3 (0-0.3); Eosinophils Percent Auto 5.2 % (0-4.4); Immature Granulocyte Absolute 0.02 K/mm3 (0.00-0.031); Immature Granulocyte Percent A 0.2 % (0-0.5); Lymphocytes Absolute Auto 2.27 K/mm3 (0.9-3.2); Lymphocytes Percent Auto 21.7 % (18.3-44.2); Mean Corpuscular HGB Conc 31.6 g/dl (32-36); Mean Corpuscular Volume 98.2 fl (80-100); Mean Platelet Volume 10.1 fl (7.4-10.4); Monocytes Absolute Auto 1.1 K/mm3 (0.1-0.6); Monocytes Percent Auto 10.7 % (2.6-8.5); Neutrophils Absolute Auto 6.4 K/mm3 (1.3-6.7); Neutrophils Percent Auto 61.6 % (45.5-73.1); Platelet Count Result 206 k/mm3 (150-375); Red Blood Count 3.87 M/mm3 (4.2-5.4); White Blood Count 10.5 K/mm3 (4.5-10.0)
[2024-01-18 14:12] LABS: Alanine Aminotransferase 7 U/L (6-35); Albumin Level 3.1 g/dL (3.5-5.1); Alkaline Phosphatase 74 U/L (38-126); Anion Gap 1 mmol/L (4-12); Aspartate Amino Transferase 19 U/L (14-36); Bilirubin,Total 0.5 mg/dL (0.2-1.3); Blood Urea Nitrogen 8 mg/dL (7-17); Carbon Dioxide 34 mmol/L (22-30); Chloride 103 mmol/L (98-107); Estimated CRCL calculation 56 ml/min; Estimated Glomerular Filt Rate > 60; Glucose 73 mg/dL (65-110); Lipase 74 U/L (23-300); Magnesium 2.1 mg/dL (1.6-2.3); Sodium 138 mmol/L (137-145)
[2024-01-18 14:15] LABS: INR 1.1; Partial Thromboplastin Time 27.2 Seconds (22.3-36.8); Prothrombin Time 14.2 Seconds (11.1-14.7)
[2024-01-18 14:17] LABS: Add Urine Microscopic? YES; Appearance Urine Clear (Clear); Bacteria Urine None Seen /hpf; Bilirubin Urine Negative (Negative); Blood Urine Negative (Negative); Color Urine Yellow (Yellow); Glucose Urine UA Negative (Negative); Hyaline Casts Urine Present /lpf; Ketones Urine Negative (Negative); Leukocyte Esterase Ur 1+ LEU/UL (Negative); Need Manual Microscopic Reviewed; Nitrate Urine Negative (Negative); Non Pathogenic Casts 0-2; Protein Urine Negative (Negative); RBC Urine 0-2 /hpf (0-2); Specific Grav Ur 1.012 (1.001-1.035); Squamous Epithelial Cell Urine None Seen /hpf (Few)
[2024-01-18 14:24] LABS: NT Pro B Type Natriuretic Pept 997 pg/mL (19.9-100); Troponin I < 0.012 ng/mL (0.000-0.034)
[2024-01-18 14:39] LABS: Influenza A QL RT-PCR Negative (Negative); Influenza B QL RT-PCR Negative (Negative); RSV RNA, RT-PCR Negative (Negative); SARS-CoV-2 RNA PCR Negative (Negative)
--- NOTE | 2024-01-18 15:07 | PC.NURSE ---
Gisela NARAYAN from [facility] called for patient update and status. Provided update to custodial staff.
[2024-01-18] MEDS: CEPHALEXIN 500 MG CAPSULE PO (15:50)
== END 2024-01-18 19:13 ==
PROVIDERS: Emergency Provider Emergency Medicine; PCP Family Medicine
DX: S09.90XA Unspecified injury of head, initial encounter (principal); N39.0 Urinary tract infection, site not specified; R29.6 Repeated falls; I50.9 Heart failure, unspecified; I73.9 Peripheral vascular disease, unspecified; E78.5 Hyperlipidemia, unspecified; E03.9 Hypothyroidism, unspecified; F31.9 Bipolar disorder, unspecified; Z87.891 Personal history of nicotine dependence; Z79.899 Other long term (current) drug therapy; W01.198A Fall on same level from slipping, tripping and stumbling with subsequent striking against other object, initial encounter
CPT/HCPCS: 36415; 70450; 71045; 74177; 80053; 81001; 83690; 83735; 83880; 84484; 85025; 85610; 85730; 87086; 87637; 93005; 96361; 96374; 99284; A9270; J2270; J7030; Q9967

== ENCOUNTER 2024-02-08 20:05 | Emergency (ER) | payer MEDICARE, SELFPAY ==
--- NOTE | ~2024-02-08 | CT_ITS ---
EXAMINATION: CT brain wo con DATE: 02/08/2024 22:23 INDICATION: Head injury. Loss of consciousness. TECHNIQUE: Computed tomography (CT) of the head was performed without intravenous contrast. The mA wa s adjusted according to patient size. Iterative reconstruction technique was employed. The dose-lengt h product was 681.00 mGy-cm. COMPARISON: Head CT 01/18/2024 FINDINGS: There are scattered areas of low attenuation in the cerebral white matter, which is within normal limits for the patient's age. There is no intracranial hemorrhage, acute infarction, or abnorm al intracranial mass lesion. The ventricles are normal in size. There is mild mucosal thickening in t he paranasal sinuses. There are likely changes of ocular lens replacement surgeries. The mastoid air cells are normal. IMPRESSION: 1. Normal aging brain. Reviewed, dictated and finalized at location A. O GRAPHICS LIBRARIAN IMPRESSION: 1. Normal aging brain.
--- NOTE | ~2024-02-08 | CT_ITS ---
EXAMINATION: CT cervical spine wo con DATE: 02/08/2024 22:24 INDICATION: Head injury. TECHNIQUE: Computed tomography (CT) of the cervical spine was performed without intravenous contrast. Automated exposure control and iterative reconstruction technique were employed. The dose-length pro duct was 115.40 mGy-cm. COMPARISON: CT cervical spine 01/13/2024, chest CT 12/29/2023 FINDINGS: There is mild emphysema. 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 There is 2 mm retrolisthesis of C5 on C6. There is 5 degrees levocurvature of cervical spine. Vertebral bod y heights are normal. There is severely decreased disc height at C3-C4 with interbody fusion. There i s mildly decreased disc height at C4-C5 and severely decreased disc height at C5-C6. The following di sc levels are specifically discussed: C2-C3: There is no uncovertebral joint osteoarthritis. There is severe left facet joint osteoarthriti s. There is mild left neural foraminal stenosis. There is no central canal stenosis. C3-C4: There is moderate right and severe left uncovertebral joint hypertrophy. There is severe bilat eral facet joint osteoarthritis. There is mild right and moderate left neural foraminal stenosis. The re is no central canal stenosis. C4-C5: There is moderate right and mild left uncovertebral joint osteoarthritis. There is severe bila teral facet joint osteoarthritis. There is mild bilateral neural foraminal stenosis. There is no cent ral canal stenosis. C5-C6: There is severe bilateral uncovertebral joint osteoarthritis. There is moderate bilateral face t joint osteoarthritis. There is mild right and moderate left neural foraminal stenosis. There is mil d central canal stenosis. C6-C7: There is no uncovertebral joint osteoarthritis. There is moderate right and severe left facet joint osteoarthritis. There is mild left neural foraminal stenosis. There is no central canal stenosi s. C7-T1: There is no uncovertebral joint osteoarthritis. There is moderate right and severe left facet joint osteoarthritis. There is mild left neural foraminal stenosis. There is no central canal stenosi s. IMPRESSION: 1. No fracture. 2. Severe cervical spondylosis. Reviewed, dictated and finalized at location A. ACTOR
[2024-02-08 20:46] VITALS: BP 133/62; PULSE 82; RESP 20; TEMP 36.2; O2SAT 100
[2024-02-08 21:55] VITALS: BP 143/91; PULSE 80; RESP 18; O2SAT 100
--- NOTE | 2024-02-08 22:15 | ED_ITS ---
HPI - Fall General Chief Complaint: Fall Stated Complaint: fall Time Seen by Provider: 02/08/24 21:40 History of Present Illness HPI Narrative: Patient is a 68-year-old female who presents to the ER after a fall. She reports the fall happened around 530/6:00 p.m. this evening. Patient endorses many episodes of falling recently. She reports she is on blood thinners. Patient is unsure whether not she lost consciousness after falling. She reports she uses 2 L nasal cannula home but denies any history of asthma or COPD. Patient reports she lives with her daughter. She reports she know she had the back of her head when she fell tonight, but she is currently not expe riencing any pain. Patient has a history of high blood pressure and congestive heart failure. Related Data Home Medications ?Medication ?Instructions ?Recorded ?Confirmed ?Last Taken ?Type divalproex 500 mg tablet,extended 1,000 mg PO HS 03/17/23 12/23/23 03/23/23 20:15 History release 24 hr levothyroxine 75 mcg tablet 75 mcg PO QAM 03/17/23 12/23/23 03/24/23 06:15 History divalproex 500 mg tablet,extended 500 mg PO QAM 03/31/23 12/23/23 Unknown History release 24 hr escitalopram oxalate 10 mg tablet 10 mg PO HS 05/03/23 12/23/23 Unknown History folic acid 800 mcg tablet 0.8 mg PO DAILY 05/03/23 12/23/23 Unknown History Vitamin B-12 2,500 mcg PO DAILY 05/19/23 12/23/23 Unknown History buspirone 10 mg tablet 10 mg PO BID 05/19/23 12/23/23 Unknown History clopidogrel 75 mg tablet 75 mg PO DAILY 06/07/23 12/23/23 Unknown History Allergies Allergy/AdvReac Type Severity Reaction Status Date / Time No Known Allergies Allergy Verified 01/18/24 11:36 Review of Systems Review of Systems: All systems reviewed & are unremarkable except as noted in HPI and below PMFSH Past Medical History Medical History CHF (congestive heart failure) Muscular deconditioning Peripheral vascular disease Bipolar disorder Malnutrition Dysuria Cataracts, bilateral On valproic acid therapy Seasonal allergies Ascending aortic aneurysm Left shoulder pain Hyperlipidemia Tobacco abuse Depression Hypothyroidism Surgical History Surgical History History of carpal tunnel surgery Family History Family History Other Unknown family medical history Social History Social History Smoking packs per day: 1 Smoking cigarettes per day: 20.0 Years smoked: 10 Smoking pack-years: 10.00 Smoking status: Former smoker Alcohol intake: never Substance use: never Substance use type: does not use Do You Feel Safe in your Home?: Yes Lack of Transportation: No Lack of Food: Never True Current Housing: I Do Not Have Housing Concerned About Future Housing: No Difficulty Paying Gas/Electric Bills: No Difficulty Paying for Meds: No Currently Unemployed: No Education: Grade School Difficulty w/ Childcare or Family Care: No Living arrangements: with family Additional living arrangements comments: . 3 adult children. Spiritual care concerns: No Exam Narrative: GENERAL: Ill-appearing, poorly-nourished, non-toxic, in no acute distress. HEAD: Normocephalic, atraumatic, although pt is starting to develop some ecchymosis below her R eye. NECK: Supple. No adenopathy, no masses. RESPIRATORY: Airway patent, respirations nonlabored. Clear to auscultation bilaterally, no rales, rhonchi, wheezing. CARDIOVASCULAR: Regular rate and rhythm without murmurs, rubs, or gallops. Peripheral pulses 2+ and equal bilaterally. Bilateral swollen extremities. ABDOMINAL: Soft, nontender, nondistended, no hepatosplenomegaly. Normoactive BS. MUSCULOSKELETAL: Moves all extremities. Strength/ROM intact without gross deformities. SKIN: Warm, dry, normal color. No rashes. NEURO: A&O X3. Speech clear. Cranial nerves II-XII grossly intact. No ataxic movements. PSYCHIATRIC: Appropriate mood and affect. Normal interaction. Course Vital Signs Vital signs: Vital Signs Temperature 36.2 C L 02/08/24 20:46 Pulse Rate 82 02/08/24 20:46 Respiratory Rate 20 02/08/24 20:46 Blood Pressure 133/62 02/08/24 20:46 Pulse Oximetry 100 02/08/24 20:46 Oxygen Delivery Room Air 02/08/24 20:46 Temperature 36.2 C L 02/08/24 20:46 Pulse Rate 80 02/08/24 21:55 Respiratory Rate 18 02/08/24 21:55 Blood Pressure 143/91 H 02/08/24 21:55 Pulse Oximetry 100 02/08/24 21:55 Oxygen Delivery Room Air 02/08/24 20:46 MDM - Fall MDM Narrative Medical decision making narrative: Patient is a 68-year-old female who presents to the ER after a fall. She reports the fall happened around 530/6:00 p.m. this evening. Patient endorses many episodes of falling recently. She reports she is on blood thinners. Patient is unsure whether not she lost consciousness after falling. She reports she uses 2 L nasal cannula home but denies any history of asthma or COPD. Patient reports she lives with her daughter. She reports she know she had the back of her head when she fell tonight, but she is currently not experiencing any pain. Patient has a history of high blood pressure and congestive heart failure. Labs Ordered: urinalysis Imaging Ordered: CT cervical spine, CT brain Results: Patient's CT cervical spine indicates 1. No fracture. 2. Severe cervical spondylosis. Patient's head CT indicates Normal aging brain. Patient's urinalysis was unremarkable and showed no indications of UTI. Diagnosis: head injury Patient Education/Shared MDM: Results shared with the patient. Patient will be discharged home and advised to follow-up her primary care provider in the next day or 2. She verbalized understanding and is in agreement with plan. [id number]- Patient is in agreement with current treatment plan. All questions answered. Vital signs stable at time of discharge. Differential Diagnosis Differential diagnosis: Likely syncope, concussion with loss of consciousness and concussion without loss of consciousness Lab Data Attestation: I reviewed the patient's lab results. Labs: Lab Results 02/09/24 Range/Units 00:48 Urine Color Yellow (Yellow) Urine Appearance Clear (Clear) Urine pH 8.5 (5.0-9.0) Ur Specific [place] 1.015 (1.001-1.035) Urine Protein Negative (Negative) mg/dL Urine Glucose (UA) Negative (Negative) mg/dL Urine Ketones Negative (Negative) mg/dL Ur Blood (Man) Negative (Negative) Urine Nitrate Negative (Negative) Urine Bilirubin Negative (Negative) Urine Urobilinogen 1.0 (<2.0) mg/dL Leukocyte Esterase Rfl Negative (Negative) RADHA/UL Imaging Data Attestation: I personally reviewed and interpreted this imaging study as follows: Radiologist's impression: Impressions Head CT 02/08/24 22:25 IMPRESSION: 1. Normal aging brain. Cervical Spine CT 02/08/24 22:28 IMPRESSION: 1. No fracture. 2. Severe cervical spondylosis. Discharge Plan Discharge Clinical Impression: Frequent falls, Head injury due to trauma, Concussion Patient Disposition: Home, Self-Care Condition: Stable Instructions: Antibiotic Form, Concussion (ED), Head Injury (ED) Additional Instructions: Please return to the ER with an worsening symptoms. Follow-up with primary care provider in the next 2-3 days. Take all medications as prescribed. Patient Language: Upper Sorbian Prescriptions: No Action divalproex 500 mg tablet extended release 24 hr 1,000 mg PO HS levothyroxine 75 mcg tablet 75 mcg PO QAM Rx Instructions: TAKE 1 TABLET BY MOUTH EVERY DAY acetaminophen 325 mg Tablet 650 mg PO Q8H PRN (Reason: Mild Pain (1-3) Or Fever) Qty: 0 0RF bupropion HCl 150 mg tablet extended release 24 hr 150 mg PO DAILY Qty: 30 0RF buspirone 10 mg tablet 10 mg PO BID Vitamin B-12 tablet 2,500 mcg PO DAILY folic acid 800 mcg Tablet 0.8 mg PO DAILY escitalopram oxalate 10 mg tablet 10 mg PO HS clopidogrel 75 mg tablet 75 mg PO DAILY midodrine 5 mg tablet 5 mg PO TID Qty: 90 3RF Rx Instructions: do not give last dose of day after 6PM or within 4 hrs of bedtime trazodone 100 mg tablet 100 mg PO QHS Qty: 30 2RF sodium chloride 1,000 mg tablet,soluble 1,500 mg PO BID Qty: 60 0RF megestrol 40 mg tablet 40 mg PO QID PRN (Reason: loss of appetite) Qty: 30 0RF divalproex 500 mg Tablet Extended Release 24 Hr 500 mg PO QAM aspirin 81 mg Tablet,Delayed Release (Dr/Ec) 81 mg PO QAM 30 Days Qty: 30 0RF potassium chloride 20 mEq tablet extended release 20 meq PO BID Qty: 10 0RF cefpodoxime 200 mg tablet 200 mg PO BID Qty: 10 0RF Rx Instructions: must administer with a meal/food doxycycline hyclate 100 mg capsule 100 mg PO BID 5 Days Qty: 10 0RF cephalexin 500 mg capsule 500 mg PO Q12H 7 Days Qty: 14 0RF gabapentin 100 mg capsule See Rx Instructions .ROUTE .COMPLEX Qty: 90 0RF Dose Instruction: TAKE 1 CAPSULE BY MOUTH THREE TIMES A DAY Rx Instructions: TAKE 1 CAPSULE BY MOUTH THREE TIMES A DAY atorvastatin 80 mg tablet 80 mg PO DAILY Qty: 30 2RF Follow-up/Referrals: Louis Hughes DO [Primary Care Provider] -
[2024-02-09 01:26] LABS: Add Urine Microscopic? NO; Appearance Urine Clear (Clear); Bilirubin Urine Negative (Negative); Blood Urine Negative (Negative); Color Urine Yellow (Yellow); Glucose Urine UA Negative (Negative); Ketones Urine Negative (Negative); Leukocyte Esterase Ur Negative LEU/UL (Negative); Nitrate Urine Negative (Negative); Protein Urine Negative (Negative); Specific Grav Ur 1.015 (1.001-1.035); pH Urine 8.5 (5.0-9.0)
[2024-02-09 02:52] VITALS: BP 107/71; PULSE 68; RESP 15; O2SAT 98
== END 2024-02-09 05:45 | disposition home or self-care (01) ==
PROVIDERS: Emergency Provider Registered Nurse; PCP Family Medicine
DX: S06.0X0A Concussion without loss of consciousness, initial encounter (principal); W19.XXXA Unspecified fall, initial encounter; I50.9 Heart failure, unspecified; F31.9 Bipolar disorder, unspecified; E78.5 Hyperlipidemia, unspecified; E03.9 Hypothyroidism, unspecified; Z87.891 Personal history of nicotine dependence; Z91.81 History of falling
CPT/HCPCS: 70450; 72125; 81003; 99284

== ENCOUNTER 2024-03-07 11:24 | Outpatient (CLI) | payer MEDICARE, SELFPAY ==
[2024-03-07 11:50] LABS: Basophils Absolute Auto 0.04 K/mm3 (0.00-0.10); Basophils Percent Auto 0.5 % (0.0-1.0); Eosinophils Absolute Auto 0.78 K/mm3 (0.02-0.50); Eosinophils Percent Auto 9.1 % (1.0-6.0); Hematocrit 36.2 % (35.0-42.0); Hemoglobin 11.1 g/dL (11.7-13.8); Immature Granulocyte Absolute 0.03 K/mm3 (0.00-0.00); Immature Granulocyte Percent A 0.3 % (0.0-0.0); Lymphocytes Absolute Auto 2.03 K/mm3 (1.10-4.50); Lymphocytes Percent Auto 23.6 % (18.0-42.0); Mean Corpuscular HGB Conc 30.7 g/dL (32-36); Mean Corpuscular Hemoglobin 31.2 pg (27.0-31.0); Mean Corpuscular Volume 101.7 fL (78.0-102.0); Mean Platelet Volume 8.5 fl (9.2-11.8); Monocytes Absolute Auto 0.81 K/mm3 (0.10-0.90); Monocytes Percent Auto 9.4 % (2.0-11.0); Neutrophils Percent Auto 57.1 % (50.0-70.0); Platelet Count Result 380 K/mm3 (150-420); Red Blood Count 3.56 M/mm3 (4.20-5.40); White Blood Count 8.6 K/mm3 (4.8-10.8)
[2024-03-07 12:17] LABS: Hemoglobin A1C < 4.4 % (<5.7)
[2024-03-07 13:09] LABS: Alanine Aminotransferase 10 U/L (14-59); Albumin Level 3.1 g/dL (3.4-5.0); Alkaline Phosphatase 86 U/L (46-116); Anion Gap 10 mmol/L (4-12); Aspartate Amino Transferase < 10 U/L (15-37); Bilirubin,Total 0.3 mg/dL (0.00-1.00); Blood Urea Nitrogen 15 mg/dL (7-18); Calcium 8.9 mg/dL (8.5-10.1); Carbon Dioxide 27 mmol/L (21-32); Chloride 105 mmol/L (98-108); Estimated Glomerular Filt Rate > 60; Glucose 55 mg/dL (70-99); Osmolality Calculated 292 mOsm/kg (285-295); Potassium 3.7 mmol/L (3.5-5.1); Sodium 142 mmol/L (136-145); Total Protein 6.3 g/dL (6.4-8.2); Vitamin B12 555 pg/mL (193-986)
[2024-03-07 13:10] LABS: Thyroid Stimulating Hormone Reflex 1.01 u/IU/mL (0.36-3.74)
[2024-03-07 13:11] LABS: Folic Acid > 20.0 ng/mL (8.6->20)
== END 2024-03-07 11:25 | disposition home or self-care (01) ==
LOC: CHSLAB 11:28
PROVIDERS: PCP Family Medicine; Visit Provider Family Medicine
DX: E03.9 Hypothyroidism, unspecified (principal); E11.9 Type 2 diabetes mellitus without complications; E53.8 Deficiency of other specified B group vitamins; R29.898 Other symptoms and signs involving the musculoskeletal system
CPT/HCPCS: 36415; 80053; 82607; 82746; 83036; 84443; 85025

== ENCOUNTER 2024-03-14 18:42 | Inpatient (IN) | payer MEDICARE, SELFPAY ==
--- NOTE | ~2024-03-14 | XR_ITS ---
EXAMINATION: XR chest 2V DATE: 03/23/2024 08:17 INDICATION: Leukocytosis TECHNIQUE: frontal and lateral views of the chest were obtained. COMPARISON: Chest radiograph dated 03/14/[address] dated 12/29/2023 FINDINGS: The lungs remain clear with no focal airspace opacities, pulmonary edema, pleural effusion or pneumot horax. Heart size is normal. Again seen is an ectatic aorta with mild aneurysmal dilation along the a ortic arch. Bilateral rotator cuff arthropathy. IMPRESSION: 1. No acute cardiopulmonary disease. Reviewed, dictated and finalized at location A. L FRONT DESK AGENT
--- NOTE | ~2024-03-14 | XR_ITS ---
XR chest 1V portable 03/14/2024 19:14 Indication: Generalized weakness Procedure: AP portable chest Comparison: 01/18/2024 Findings: There are left basilar infiltrates, suspicious for pneumonia. No pleural effusion, edema or pneumothorax. Heart size normal. There is atherosclerosis of the aorta. No acute osseous abnormality . Impression: 1: Left basilar infiltrates, suspicious for pneumonia. Reviewed, dictated and finalized at location A. PM Impression: 1: Left basilar infiltrates, suspicious for pneumonia.
[2024-03-14 18:44] VITALS: BP 140/65; PULSE 76; RESP 18; TEMP 36.9; O2SAT 100
--- NOTE | 2024-03-14 19:06 | ECG_ITS ---
Test Date: 2024-03-14 19:38:48 Measurements Intervals [place] Rate: 65 P: 87 IN: 138 QRS: 52 QRSD: 83 T: 67 QT: 390 QTc: 407 Interpretive Statements SINUS RHYTHM POSSIBLE LEFT ATRIAL ENLARGEMENT [-0.1mV P-WAVE IN V1/V2] Compared to ECG 01/18/2024 13:54:00 NO SIGNIFICANT CHANGES Electronically Signed On 03-15-2024 14:14:00 [employer] READER by Marisabel Siddiqi M.D.
--- NOTE | 2024-03-14 19:24 | PC.NURSE ---
STRAIGHT CATH COMPLETED BY HARJINDER TILLMAN
--- NOTE | 2024-03-14 19:32 | PC.NURSE ---
LAYNE, HARJINDER, GOING TO ROOM TO DO EKG
[2024-03-14 19:34] LABS: Basophils Absolute Auto 0.06 K/mm3 (0.00-0.10); Basophils Percent Auto 0.6 % (0.0-1.0); Eosinophils Absolute Auto 0.41 K/mm3 (0.02-0.50); Eosinophils Percent Auto 4.2 % (1.0-6.0); Hematocrit 38.4 % (35.0-42.0); Hemoglobin 11.7 g/dL (11.7-13.8); Immature Granulocyte Absolute 0.05 K/mm3 (0.00-0.00); Immature Granulocyte Percent A 0.5 % (0.0-0.0); Lymphocytes Percent Auto 22.7 % (18.0-42.0); Mean Corpuscular HGB Conc 30.5 g/dL (32-36); Mean Corpuscular Hemoglobin 30.6 pg (27.0-31.0); Mean Corpuscular Volume 100.5 fL (78.0-102.0); Mean Platelet Volume 9.5 fl (9.2-11.8); Monocytes Absolute Auto 1.35 K/mm3 (0.10-0.90); Monocytes Percent Auto 13.9 % (2.0-11.0); Neutrophils Absolute Auto 5.63 K/mm3 (1.70-7.20); Neutrophils Percent Auto 58.1 % (50.0-70.0); Platelet Count Result 415 K/mm3 (150-420); Red Blood Count 3.82 M/mm3 (4.20-5.40); Red Cell Distribution Width 13.3 % (11.6-14.4); White Blood Count 9.7 K/mm3 (4.8-10.8)
--- NOTE | 2024-03-14 19:36 | ED_ITS ---
HPI - Weakness General Chief complaint: Urogenital-Female Stated complaint: skin itching Time Seen by Provider: 03/14/24 18:51 Source: patient and family Mode of arrival: wheelchair Limitations: no limitations and physical limitation History of Present Illness HPI Narrative: this is a 68-year-old female presents with generalized weakness brought in by her daughter has seen her primary care physician and working on senior care placement, the patient with no fever chills does have some mild shortness of breath no dysuria no nausea vomiting no chest pain no abdominal pain no flank pain. Complaint: generalized weakness Onset (ago): day(s) Duration: constant Location: generalized Severity: moderate Related Data Home Medications ?Medication ?Instructions ?Recorded ?Confirmed ?Last Taken ?Type divalproex 500 mg tablet,extended 1,000 mg PO HS 03/17/23 03/07/24 03/23/23 20:15 History release 24 hr levothyroxine 75 mcg tablet 75 mcg PO QAM 03/17/23 03/07/24 03/24/23 06:15 History divalproex 500 mg tablet,extended 500 mg PO QAM 03/31/23 03/07/24 Unknown History release 24 hr escitalopram oxalate 10 mg tablet 10 mg PO HS 05/03/23 03/07/24 Unknown History folic acid 800 mcg tablet 0.8 mg PO DAILY 05/03/23 03/07/24 Unknown History Vitamin B-12 2,500 mcg PO DAILY 05/19/23 03/07/24 Unknown History buspirone 10 mg tablet 10 mg PO BID 05/19/23 03/07/24 Unknown History clopidogrel 75 mg tablet 75 mg PO DAILY 06/07/23 03/07/24 Unknown History Allergies Allergy/AdvReac Type Severity Reaction Status Date / Time No Known Allergies Allergy Verified 03/07/24 08:11 Review of Systems 2 Review of Systems: All systems reviewed & are unremarkable except as noted in HPI and below PMFSH Past Medical History Medical History CHF (congestive heart failure) Muscular deconditioning Peripheral vascular disease Bipolar disorder Malnutrition Dysuria Cataracts, bilateral On valproic acid therapy Seasonal allergies Ascending aortic aneurysm Left shoulder pain Hyperlipidemia Tobacco abuse Depression Hypothyroidism Surgical History Surgical History History of carpal tunnel surgery Family History Family History Other Unknown family medical history Social History Social History Smoking packs per day: 1 Smoking cigarettes per day: 20.0 Years smoked: 10 Smoking pack-years: 10.00 Smoking status: Former smoker Alcohol intake: never Substance use: never Substance use type: does not use Do You Feel Safe in your Home?: Yes Lack of Transportation: No Lack of Food: Never True Current Housing: I Do Not Have Housing Concerned About Future Housing: No Difficulty Paying Gas/Electric Bills: No Difficulty Paying for Meds: No Currently Unemployed: No Education: Grade School Difficulty w/ Childcare or Family Care: No Living arrangements: with family Additional living arrangements comments: . 3 adult children. Spiritual care concerns: No Exam 2 Const: General: no acute distress Nutritional Appearance: thin O rientation/consciousness: confusion Limitations: physical limitations HENMT: Head: normal to inspection Neck: Neck: normal visual inspection and no lymphadenopathy Chest: Chest palpation & inspection: normal inspection of the chest Resp: Effort & Inspection: normal respiratory effort Auscultation: clear to auscultation bilaterally Cardio: Rate: regular rate Rhythm: regular rhythm GI: GI Palp: Yes Soft to palpation Auscultation: normal bowel sounds Urinary Catheter: Urinary Catheter: patent and draining Skin: General skin exam: normal color Rashes: no rashes Neuro: General: moves all extremities and no meningeal signs Cranial nerves: Yes Nystagmus not present Extrem: General: normal to inspection, no clubbing, cyanosis or edema and no pedal edema Course Course Emergency Course: Patient received IV fluids and IV ceftriaxone and IV azithromycin, x-ray performed shows left lower lobe of infiltrate consistent with pneumonia. Labs reviewed with patient and family. Will admit under hospitalist Service. Vital Signs Vital signs: Vital Signs Temperature 36.9 C 03/14/24 18:44 Pulse Rate 76 03/14/24 18:44 Respiratory Rate 18 03/14/24 18:44 Blood Pressure 140/65 03/14/24 18:44 Pulse Oximetry 100 03/14/24 18:44 Oxygen Delivery Room Air 03/14/24 18:44 Temperature 36.9 C 03/14/24 18:44 Pulse Rate 76 03/14/24 18:44 Respiratory Rate 18 03/14/24 18:44 Blood Pressure 140/65 03/14/24 18:44 Pulse Oximetry 100 03/14/24 18:44 Oxygen Delivery Room Air 03/14/24 18:44 MDM - Weakness Lab Data 03/14/24 19:30 03/14/24 19:30 Labs: Lab Results 03/14/24 Range/Units 19:30 WBC Pending RBC Pending Hgb Pending Hct Pending MCV Pending MCH Pending MCHC Pending RDW Pending Plt Count Pending MPV Pending Immature Gran % (Auto) Pending Neut % (Auto) Pending Lymph % (Auto) Pending [place] % (Auto) Pending Eos % (Auto) Pending Baso % (Auto) Pending Lymph # (Auto) Pending [place] # (Auto) Pending Eos # (Auto) Pending Baso # (Auto) Pending Abs Immat Gran (auto) Pending Absolute Neuts (auto) Pending Absolute Nucleated RBC Pending Nucleated RBC % Pending Sodium Pending Potassium Pending Chloride Pending Carbon Dioxide Pending Anion Gap Pending BUN Pending Creatinine Pending Estim Creat Clear Calc Pending Estimated GFR Pending Glucose Pending Calculated Osmolality Pending Lactic Acid Pending Calcium Pending Total Bilirubin Pending AST Pending ALT Pending Alkaline Phosphatase Pending NT-Pro-B Natriuret Pep Pending Total Protein Pending Albumin Pending Urine Color Pending Urine Appearance Pending Urine pH Pending Ur Specific [place] Pending Urine Protein Pending Urine Glucose (UA) Pending Urine Ketones Pending Ur Blood (Man) Pending Urine Nitrate Pending Urine Bilirubin Pending Urine Urobilinogen Pending Leukocyte Esterase Rfl Pending Critical Care Time Critical Care Time Critical Care Time: No Discharge Plan Discharge Clinical Impression: Pneumonia Qualifiers: Pneumonia type: due to unspecified organism Laterality: left Lung location: l ower lobe of lung Qualified Code(s): J18.9 - Pneumonia, unspecified organism Patient Disposition: Acute Care Hospital Condition: Guarded Prognosis Patient Language: Belgian Prescriptions: No Action divalproex 500 mg tablet extended release 24 hr 1,000 mg PO HS levothyroxine 75 mcg tablet 75 mcg PO QAM Rx Instructions: TAKE 1 TABLET BY MOUTH EVERY DAY acetaminophen 325 mg Tablet 650 mg PO Q8H PRN (Reason: Mild Pain (1-3) Or Fever) Qty: 0 0RF bupropion HCl 150 mg tablet extended release 24 hr 150 mg PO DAILY Qty: 30 0RF buspirone 10 mg tablet 10 mg PO BID Vitamin B-12 tablet 2,500 mcg PO DAILY folic acid 800 mcg Tablet 0.8 mg PO DAILY escitalopram oxalate 10 mg tablet 10 mg PO HS clopidogrel 75 mg tablet 75 mg PO DAILY midodrine 5 mg tablet 5 mg PO TID Qty: 90 3RF Rx Instructions: do not give last dose of day after 6PM or within 4 hrs of bedtime megestrol 40 mg tablet 40 mg PO QID PRN (Reason: loss of appetite) Qty: 30 0RF sodium chloride 1,000 mg tablet,soluble 1,500 mg PO BID Qty: 60 0RF triamcinolone acetonide 0.5 % cream 1 applic topical BID Qty: 15 0RF divalproex 500 mg Tablet Extended Release 24 Hr 500 mg PO QAM aspirin 81 mg Tablet,Delayed Release (Dr/Ec) 81 mg PO QAM 30 Days Qty: 30 0RF potassium chloride 20 mEq tablet extended release 20 meq PO BID Qty: 10 0RF gabapentin 100 mg capsule See Rx Instructions .ROUTE .COMPLEX Qty: 90 0RF Dose Instruction: TAKE 1 CAPSULE BY MOUTH THREE TIMES A DAY Rx Instructions: TAKE 1 CAPSULE BY MOUTH THREE TIMES A DAY atorvastatin 80 mg tablet 80 mg PO DAILY Qty: 30 2RF trazodone 100 mg tablet See Rx Instructions .ROUTE .COMPLEX Qty: 90 0RF Dose Instruction: TAKE 1 TABLET ORALLY EVERY DAY AT BEDTIME Rx Instructions: TAKE 1 TABLET ORALLY EVERY DAY AT BEDTIME Follow-up/Referrals: Louis Hughes DO [Primary Care Provider] - Time of Disposition: 20:34
[2024-03-14 19:37] LABS: Add Urine Microscopic? NO; Appearance Urine Clear (Clear); Bilirubin Urine Negative (Negative); Blood Urine Negative (Negative); Color Urine Light Yellow (Yellow); Glucose Urine UA Negative (Negative); Ketones Urine Trace (Negative); Leukocyte Esterase Ur Negative LEU/UL (Negative); Nitrate Urine Negative (Negative); Protein Urine Negative (Negative); Urobilinogen Urine 0.2 mg/dL (0.2-1.0)
[2024-03-14] MEDS: SODIUM CHLORIDE 0.9% IV 1,000 ML 150 ML IV CONT (19:50)
[2024-03-14 19:55] LABS: Lactic Acid Reflex 1.5 mmol/L (0.4-2.0)
[2024-03-14 19:56] LABS: Alanine Aminotransferase 6 U/L (14-59); Alkaline Phosphatase 78 U/L (46-116); Anion Gap 9 mmol/L (4-12); Aspartate Amino Transferase < 10 U/L (15-37); Bilirubin,Total 0.4 mg/dL (0.00-1.00); Blood Urea Nitrogen 17 mg/dL (7-18); Calcium 9.5 mg/dL (8.5-10.1); Carbon Dioxide 28 mmol/L (21-32); Chloride 104 mmol/L (98-108); Estimated CRCL calculation 36 ml/min; Estimated Glomerular Filt Rate 59; Glucose 80 mg/dL (70-99); NT Pro B Type Natriuretic Pept 911 pg/mL (0-125); Osmolality Calculated 292 mOsm/kg (285-295); Potassium 4.9 mmol/L (3.5-5.1); Sodium 141 mmol/L (136-145)
[2024-03-14] MEDS: AZITHROMYCIN 500 MG/NS 250 ML 500 MG/250 ML BAG 250 MG IVPB (20:30)
--- NOTE | 2024-03-14 20:43 | PC.NURSE ---
SPOKE WITH MAURICIO RN ON MED SURG FLOOR. PATIENT TO GO TO ROOM 206
[2024-03-14 20:47] VITALS: BP 158/72; PULSE 55; RESP 16; O2SAT 92
--- NOTE | 2024-03-14 20:48 | PC.NURSE ---
PATIENT AND DAUGHTER NOTIFIED OF ADMISSION TO ROOM 206. PATIENT CONTINUES TO PICK AT SCABS ON HER BODY. MAURICIO NARAYAN NOTIFIED THAT PATIENT HAS SEVERAL SMALL AREAS OF BLOOD FROM WHERE SHE IS PICKING.
[2024-03-14 21:23] VITALS: BP 158/72; PULSE 55; RESP 16; TEMP 36.9; O2SAT 92
[2024-03-14 21:44] VITALS: O2SAT 99; BMI 18.7
--- NOTE | 2024-03-14 21:52 | ADMGEN ---
This patient, Mairtza Noriega, was admitted to 2nd Floor Room 206-1. Patient oriented to hospital policies and general routines including ID bracelet, bed and alarms, visiting hours, pain management, procedures, bathroom and other care routines, personal items, smoking policy, room service/diet, and visiting hours. Information on how to activate the Rapid Response Team has been discussed. Patient are encouraged to report perceived risks to care and to ask questions if they do not understand what they are told or what they should do.
[2024-03-14] MEDS: DIVALPROEX SODIUM DR 250 MG TABEC 500 MG PO (22:57)
[2024-03-14] MEDS: GABAPENTIN 100 MG CAPSULE BY MOUTH (22:57)
[2024-03-14] MEDS: ESCITALOPRAM OXALATE 10 MG TABLET PO (22:57)
[2024-03-15] VITALS: BP 146/97; PULSE 74; RESP 16; TEMP 36.2; O2SAT 99
[2024-03-15] MEDS: CARBIDOPA/LEVODOPA 10/100 MG TABLET 1 TABLET PO (06:59)
[2024-03-15] MEDS: GABAPENTIN 100 MG CAPSULE BY MOUTH ×3 (06:59→21:50)
[2024-03-15 07:50] VITALS: BP 130/58; PULSE 78; RESP 16; TEMP 36.1; O2SAT 98
[2024-03-15 08:48] LABS: Basophils Absolute Auto 0.05 K/mm3 (0.00-0.10); Basophils Percent Auto 0.6 % (0.0-1.0); Eosinophils Absolute Auto 0.44 K/mm3 (0.02-0.50); Eosinophils Percent Auto 5.4 % (1.0-6.0); Hemoglobin 11.5 g/dL (11.7-13.8); Immature Granulocyte Absolute 0.05 K/mm3 (0.00-0.00); Immature Granulocyte Percent A 0.6 % (0.0-0.0); Lymphocytes Absolute Auto 1.91 K/mm3 (1.10-4.50); Lymphocytes Percent Auto 23.3 % (18.0-42.0); Mean Corpuscular HGB Conc 31.1 g/dL (32-36); Mean Corpuscular Hemoglobin 31.4 pg (27.0-31.0); Mean Corpuscular Volume 101.1 fL (78.0-102.0); Mean Platelet Volume 9.3 fl (9.2-11.8); Monocytes Absolute Auto 1.07 K/mm3 (0.10-0.90); Monocytes Percent Auto 13.1 % (2.0-11.0); Neutrophils Absolute Auto 4.67 K/mm3 (1.70-7.20); Platelet Count Result 388 K/mm3 (150-420); Red Blood Count 3.66 M/mm3 (4.20-5.40); Red Cell Distribution Width 13.6 % (11.6-14.4); White Blood Count 8.2 K/mm3 (4.8-10.8)
[2024-03-15 09:05] LABS: Alanine Aminotransferase 6 U/L (14-59); Albumin Level 2.6 g/dL (3.4-5.0); Alkaline Phosphatase 69 U/L (46-116); Anion Gap 6 mmol/L (4-12); Aspartate Amino Transferase 10 U/L (15-37); Bilirubin,Total 0.3 mg/dL (0.00-1.00); Blood Urea Nitrogen 14 mg/dL (7-18); Calcium 8.7 mg/dL (8.5-10.1); Carbon Dioxide 30 mmol/L (21-32); Chloride 107 mmol/L (98-108); Estimated CRCL calculation 40 ml/min; Estimated Glomerular Filt Rate 59; Glucose 103 mg/dL (70-99); Osmolality Calculated 296 mOsm/kg (285-295); Potassium 4.4 mmol/L (3.5-5.1); Sodium 143 mmol/L (136-145); Total Protein 6.4 g/dL (6.4-8.2)
[2024-03-15] MEDS: ATORVASTATIN 40 MG TABLET 80 MG PO (09:55)
[2024-03-15] MEDS: ASCORBIC ACID 500 MG TABLET PO ×2 (09:55→18:06)
[2024-03-15] MEDS: buPROPion HCL XL (24 HR) 150 MG TABCR PO (09:55)
[2024-03-15] MEDS: TRIAMCINOLONE ACET 0.1% CREAM 15 GM TUBE 1 APPLIC TOPICAL (09:55)
[2024-03-15] MEDS: CLOPIDOGREL BISULFATE 75 MG TABLET PO (09:55)
[2024-03-15] MEDS: ASPIRIN 81 MG ENTERIC TABLET PO (09:55)
[2024-03-15] MEDS: LEVOTHYROXINE SODIUM 75 MCG TABLET PO (09:55)
[2024-03-15] MEDS: DIVALPROEX SODIUM DR 250 MG TABEC 500 MG PO ×2 (09:56→21:50)
[2024-03-15] MEDS: MIDODRINE HCL 2.5 MG TABLET 5 MG PO ×3 (09:56→18:06)
[2024-03-15] MEDS: AMOXICILLIN/CLAVULANATE K 875-125 MG TAB 1 TABLET PO ×2 (09:56→21:50)
[2024-03-15] MEDS: CYANOCOBALAMIN 500 MCG TABLET PO (09:56)
[2024-03-15] MEDS: busPIRone HCL 5 MG TABLET 15 MG PO ×3 (09:56→18:06)
[2024-03-15] MEDS: POTASSIUM CHLORIDE 20 MEQ ER TABLET PO ×2 (09:56→18:06)
[2024-03-15] MEDS: FOLIC ACID 1 MG TABLET PO (09:58)
--- NOTE | 2024-03-15 10:10 | P.HP_ITS ---
H&P: HPI History of Present Illness Date/Time: 03/15/24 10:10 Chief Complaint: Generalized Weekness Narrative: Patient is a 68-year-old female who was sent over to the emergency department by her primary care physician due to increased generalized weakness which has gotten increasingly worse over the last week. Patient is a poor historian some information was gathered via the medical chart as stated from emergency department family has requested patient be placed in long care facility unable to care for self anymore. patient with past medical history of bipolar disorder, CHF, failure to thrive, and depression. initial findings in the emergency department did show a chest x-ray with right lower lobe infiltrate suggestive of pneumonia. Patient with normal WBC, afebrile no respiratory distress. Patient denied CP, SOB, Cough, dizziness, nausea, and vomiting overall states she just did not feel well and has had worsening weakness. upon assessment patient was found to also a systemic rash lower and upper extremities as well as her trunk back as reported from medical chart when she saw her primary patient's daughter reported this began about a month ago with no new medications or changes. patient was admitted to the medical unit for pneumonia, generalized weakness, and failure to thrive. labs were reviewed and unremarkable vital stable. Review of Systems Review of Systems: All systems reviewed & are unremarkable except as noted in HPI and below PMFSH Past Medical History Medical History CHF (congestive heart failure) Muscular deconditioning Peripheral vascular disease Bipolar disorder Malnutrition Dysuria Cataracts, bilateral On valproic acid therapy Seasonal allergies Ascending aortic aneurysm Left shoulder pain Hyperlipidemia Tobacco abuse Depression Hypothyroidism Surgical History Surgical History History of carpal tunnel surgery Family History Family History Other Unknown family medical history Social History Social History Smoking packs per day: 1 Smoking cigarettes per day: 20.0 Years smoked: 10 Smoking pack-years: 10.00 Smoking status: Former smoker Tobacco type: cigarettes Alcohol intake: never Substance use: never Substance use type: does not use Do You Feel Safe in your Home?: Yes Lack of Transportation: No Lack of Food: Never True Current Housing: I Have Housing Concerned About Future Housing: No Difficulty Paying Gas/Electric Bills: No Difficulty Paying for Meds: No Currently Unemployed: No Education: Don't Know Difficulty w/ Childcare or Family Care: No Living arrangements: with family Additional living arrangements comments: . 3 adult children. Spiritual care concerns: No Meds Home Medications and Allergies Home Medications ?Medication ?Instructions ?Recorded ?Confirmed ?Type divalproex 500 mg tablet,extended 1,000 mg PO HS 03/17/23 03/14/24 History release 24 hr levothyroxine 75 mcg tablet 75 mcg PO QAM 03/17/23 03/14/24 History acetaminophen 325 mg tablet 650 mg (2 x 325 mg) PO Q8H PRN 03/31/23 03/15/24 Rx Mild Pain (1-3) Or Fever #0 tabs bupropion HCl 150 mg 24 hr tablet, 150 mg PO DAILY #30 tabs 03/31/23 03/14/24 Rx extended release divalproex 500 mg tablet,extended 500 mg PO QAM 03/31/23 03/14/24 History release 24 hr aspirin 81 mg tablet,delayed 81 mg PO QAM 30 days #30 tabs 04/06/23 03/14/24 Rx release escitalopram oxalate 10 mg tablet 10 mg PO HS 05/03/23 03/14/24 History folic acid 800 mcg tablet 0.8 mg PO DAILY 05/03/23 03/14/24 History gabapentin 100 mg capsule See Rx Instructions .Route 05/17/23 03/14/24 Rx .COMPLEX #90 caps Vitamin B-12 2,500 mcg PO DAILY 05/19/23 03/14/24 History buspirone 10 mg tablet 10 mg PO BID 05/19/23 03/14/24 History clopidogrel 75 mg tablet 75 mg PO DAILY 06/07/23 03/14/24 History atorvastatin 80 mg tablet 80 mg PO DAILY #30 tabs 06/22/23 03/14/24 Rx megestrol 40 mg tablet 40 mg PO QID PRN loss of appetite 12/08/23 03/14/24 Rx #30 tabs midodrine 5 mg tablet 5 mg PO TID #90 tabs 12/14/23 03/14/24 Rx potassium chloride 20 mEq 20 meq PO BID #10 tabs 12/30/23 03/14/24 Rx tablet,extended release trazodone 100 mg tablet See Rx Instructions .Route 03/04/24 03/14/24 Rx .COMPLEX #90 tabs sodium chloride 1,000 mg soluble 1,500 mg (1.5 x 1,000 mg) PO BID 03/07/24 03/14/24 Rx tablet #60 tabs triamcinolone acetonide 0.5 % 1 applic topical BID #15 grams 03/07/24 03/14/24 Rx topical cream Allergies Allergy/AdvReac Type Severity Reaction Status Date / Time No Known Allergies Allergy Verified 03/14/24 21:10 Vital Signs Vital Signs - 24 hr 03/14/24 18:44 03/14/24 20:47 03/14/24 21:23 Temperature 98.4 F 98.4 F Pulse Rate 76 55 L 55 L Respiratory Rate 18 16 16 Blood Pressure 140/65 158/72 H 158/72 H Pulse Oximetry 100 92 92 Oxygen Delivery Room Air Room Air Room Air 03/14/24 21:44 03/15/24 00:00 03/15/24 07:50 Temperature 97.1 F L 96.9 F L Pulse Rate 74 78 Respiratory Rate 16 16 Blood Pressure 146/97 H 130/58 L Pulse Oximetry 99 99 98 Oxygen Delivery Room Air Room Air Exam Narrative: * GENERAL: Alert and oriented x 2 will respond to questions however sometimes does not answer appropriately. No acute distress. cachectic * EYES: EOMI. No scleral icterus. PERRLA. * HEENT: Moist mucous membranes. * LUNGS: Clear to auscultation bilaterally. No accessory muscle use. on RA * CARDIOVASCULAR: Regular rate and rhythm. No JVD. S1-S2 * ABDOMEN: Soft, non tenderness and non-distended. No palpable masses. * EXTREMITIES: No edema. Non-tender * SKIN: Systemic rash BUE, BLE, chest, and back in with scabs from patient scratching different stages of healing * NEUROLOGIC: No focal neurological deficits. CN II-XII grossly intact * PSYCHIATRIC: Appropriate mood and affect. Good judgement and insight. No visual or auditory hallucinations. No suicidal or homicidal ideation. H&P: Results Labs Labs: Short CBC 03/14/24 03/15/24 Range/Units 19:30 08:40 WBC 9.7 8.2 (4.8-10.8) K/mm3 Hgb 11.7 11.5 L (11.7-13.8) g/dL Hct 38.4 37.0 (35.0-42.0) % Plt Count 415 388 (150-420) K/mm3 BMP 03/14/24 03/15/24 19:30 08:40 Sodium 141 143 Potassium 4.9 4.4 Chloride 104 107 Carbon Dioxide 28 30 BUN 17 14 Creatinine 0.95 0.94 Glucose 80 103 H Calcium 9.5 8.7 Liver Function 03/14/24 03/15/24 Range/Units 19:30 08:40 Total Bilirubin 0.4 0.3 (0.00-1.00) mg/dL AST < 10 L 10 L (15-37) U/L ALT 6 L 6 L (14-59) U/L Alkaline Phosphatase 78 69 (46-116) U/L Albumin 3.0 L 2.6 L (3.4-5.0) g/dL Urine 03/14/24 Range/Units 19:30 Urine Color Light yellow (Yellow) Urine Appearance Clear (Clear) Urine pH 6.0 (5.0-8.0) Ur Specific [place] 1.020 (1.010-1.020) Urine Protein Negative (Negative) Urine Glucose (UA) Negative (Negative) Imaging Chest x-ray: Radiologist's impression: XR chest 1V portable 03/14/2024 19:14 Indication: Generalized weakness Procedure: AP portable chest Comparison: 01/18/2024 Findings: There are left basilar infiltrates, suspicious for pneumonia. No pleural effusion, edema or pneumothorax. Heart size normal. There is atherosclerosis of the aorta. No acute osseous abnormality. Impression: 1: Left basilar infiltrates, suspicious for pneumonia. Assessment and Plan Assessment and plan (1) Pneumonia: Qualifiers: Laterality: left Lung location: lower lobe of lung Pneumonia type: due to unspecified organism Qualified Code(s): J18.9 - Pneumonia, unspecified organism Code(s): J18.9 - Pneumonia, unspecified organism Status: Acute Assessment and Plan: CXR left basilar infiltrates suspicious for pneumonia, normal WBC, afebrile, on room air but does have generalized weakness that has worsened over the last week * given Rocephin and azithromycin in the emergency department * transitioned to oral Augmentin * oxygen p.r.n. * incentive spirometer (2) Rash: Code(s): R21 - Rash and other nonspecific skin eruption Status: Acute Assessment and Plan: * systemic rash upper and lower extremities chest and back * treat with prednisone added Benadryl for itching (3) Generalized weakness: Code(s): R53.1 - Weakness Status: Acute Assessment and Plan: * likely secondary to pneumonia and failure to thrive * PT/OT for evaluation * family requesting SNF (4) Moderate protein-calorie malnutrition: Code(s): E44.0 - Moderate protein-calorie malnutrition Status: Chronic Assessment and Plan: * secondary to failure to thrive * added protein shakes to each meal * regular diet * Resumed Megace (5) Adult failure to thrive: Code(s): R62.7 - Adult failure to thrive Status: Acute Assessment and Plan: patient has been worsening for the last year patient's passed around a year ago suffering from depression, bipolar disorder and anxiety * [facility] placement * see above 3 (6) Depression: Code(s): F32.9 - Major depressive disorder, single episode, unspecified Status: Chronic Assessment and Plan: * Resumed home medications BuSpar and Wellbutrin, citalopram (7) Anxiety: Code(s): F41.9 - Anxiety disorder, unspecified Status: Chronic Assessment and Plan: * Resumed home medications BuSpar and Wellbutrin (8) Bipolar disorder: Code(s): F31.9 - Bipolar disorder, unspecified Status: Chronic Assessment and Plan: * Resumed home medications divalproex (9) Hypothyroidism: Code(s): E03.9 - Hypothyroidism, unspecified Status: Chronic Assessment and Plan: * Resumed Levothyroxine (10) Hypotension: Code(s): I95.9 - Hypotension, unspecified Status: Acute Assessment and Plan: * resume patient's midodrine * monitor BP per unit protocol Plan Code status: Full code per patient DVT prophylaxis: Lovenox Stress ulcer prophylaxis: NA PT/OT notes: PT/OT evaluation Disposition: Patient was admitted to the medical unit further evaluation and treatment of pneumonia and generalized weakness family is requesting placement to long-term care facility patient on longer able to care for self care coordination has been consulted. Quality VTE Prophylaxis VTE prophylaxis: pharmacologic ordered -Patient's previous records reviewed on admission -ER notes reviewed in detail on admission -discussed all findings and current treatment plan with patient/Family/POA -Consultations reviewed for recommendations -Patient's disposition for safe discharge discussed with pillowcase cutter Dictation performed by [employer] direct speech recognition software, therefore back hoe machine operator variants and typographical errors may occur. Hospitalist MIPS Advance Care Plan I have confirmed that the patient's Advanced Care Plan is present, code status is documented, or surrogate decision maker is listed in patient medical record.: Yes Medication Reconciliation I have utilized all available resources to obtain, update and review the patients current medications (includes all prescriptions, OTC, herbals, cannabis, and nutritional supplements).: Yes The patient is not eligible for med reconciliation; the patient is in a emergent medical situation where delaying treatment would jeopardize the patients health.: No
[2024-03-15] MEDS: methylPREDNISolone SOD SUCC 40 MG VIAL IV PUSH (11:47)
[2024-03-15 16:30] VITALS: BP 144/71; PULSE 77; RESP 16; TEMP 35.9; O2SAT 97
[2024-03-15] MEDS: TRIAMCINOLONE ACET 0.1% CREAM 80 GM TUBE 1 APPLIC TOPICAL (18:06)
[2024-03-15] MEDS: traZODone HCL 50 MG TABLET 100 MG PO (21:50)
[2024-03-15] MEDS: diphenhydrAMINE HCl CAP 25 MG CAPSULE PO (21:50)
[2024-03-15] MEDS: ESCITALOPRAM OXALATE 10 MG TABLET PO (21:50)
[2024-03-16] VITALS: BP 131/64; PULSE 64; RESP 16; TEMP 36.6; O2SAT 98
[2024-03-16 05:12] LABS: Hematocrit 33.4 % (35.0-42.0); Hemoglobin 10.1 g/dL (11.7-13.8); Mean Corpuscular HGB Conc 30.2 g/dL (32-36); Mean Corpuscular Hemoglobin 30.4 pg (27.0-31.0); Mean Corpuscular Volume 100.6 fL (78.0-102.0); Mean Platelet Volume 9.4 fl (9.2-11.8); Platelet Count Result 348 K/mm3 (150-420); Red Blood Count 3.32 M/mm3 (4.20-5.40); Red Cell Distribution Width 13.5 % (11.6-14.4); White Blood Count 8.3 K/mm3 (4.8-10.8)
[2024-03-16 05:27] LABS: Alanine Aminotransferase 8 U/L (14-59); Albumin Level 2.6 g/dL (3.4-5.0); Alkaline Phosphatase 68 U/L (46-116); Anion Gap 7 mmol/L (4-12); Aspartate Amino Transferase < 10 U/L (15-37); Bilirubin,Total 0.3 mg/dL (0.00-1.00); Blood Urea Nitrogen 15 mg/dL (7-18); Calcium 8.7 mg/dL (8.5-10.1); Carbon Dioxide 29 mmol/L (21-32); Chloride 106 mmol/L (98-108); Estimated CRCL calculation 38 ml/min; Estimated Glomerular Filt Rate 55; Glucose 92 mg/dL (70-99); Osmolality Calculated 294 mOsm/kg (285-295); Potassium 4.7 mmol/L (3.5-5.1); Sodium 142 mmol/L (136-145); Total Protein 6.4 g/dL (6.4-8.2)
[2024-03-16] MEDS: diphenhydrAMINE HCl CAP 25 MG CAPSULE PO (06:02)
[2024-03-16] MEDS: LEVOTHYROXINE SODIUM 75 MCG TABLET PO (06:02)
[2024-03-16] MEDS: GABAPENTIN 100 MG CAPSULE BY MOUTH ×3 (06:02→21:13)
--- NOTE | 2024-03-16 07:45 | P.PNIM_ITS ---
Progress Note: A&P Assessment and Plan (1) Pneumonia: Qualifiers: Laterality: left Lung location: lower lobe of lung Pneumonia type: due to unspecified organism Qualified Code(s): J18.9 - Pneumonia, unspecified organism Code(s): J18.9 - Pneumonia, unspecified organism Status: Acute Assessment and Plan: CXR left basilar infiltrates suspicious for pneumonia, normal WBC, afebrile, on room air but does have generalized weakness that has worsened over the last week * given Rocephin and azithromycin in the emergency department * transitioned to oral Augmentin * oxygen p.r.n. * incentive spirometer 03/16 * Continue Augmentin and Azithromycin * Continue IS while awake (2) Rash: Code(s): R21 - Rash and other nonspecific skin eruption Status: Acute Assessment and Plan: * systemic rash upper and lower extremities chest and back * treat with prednisone added Benadryl for itching 03/16 * Rash all over body, BUE, BLE and inbetween fingers and toes * Could be a form of eczema, however can not rule out scabies. Left message for daughter to call back. * Continue prednisone * Will order permethrin 5% topical cream x1 now. * Start Atarax for itching * Will isolate for possible scabies (3) Generalized weakness: Code(s): R53.1 - Weakness Status: Acute Assessment and Plan: * likely secondary to pneumonia and failure to thrive * PT/OT for evaluation * family requesting SNF 03/16 * Continue PT and OT * Case management following for outpatient rehab needs (4) Moderate protein-calorie malnutrition: Code(s): E44.0 - Moderate protein-calorie malnutrition Status: Chronic Assessment and Plan: * secondary to failure to thrive * added protein shakes to each meal * regular diet * Resumed Megace 03/16 * encourage po intake * No change to current treatment plan (5) Adult failure to thrive: Code(s): R62.7 - Adult failure to thrive Status: Acute Assessment and Plan: patient has been worsening for the last year patient's passed around a year ago suffering from depression, bipolar disorder and anxiety * long term care administrator placement * see above 3 03/16 * Continue PT and OT * Case management working on placement (6) Depression: Code(s): F32.9 - Major depressive disorder, single episode, unspecified Status: Chronic Assessment and Plan: * Resumed home medications BuSpar and Wellbutrin, citalopram 03/16 * No change (7) Anxiety: Code(s): F41.9 - Anxiety disorder, unspecified Status: Chronic Assessment and Plan: * Resumed home medications BuSpar and Wellbutrin 03/16 * No change (8) Bipolar disorder: Code(s): F31.9 - Bipolar disorder, unspecified Status: Chronic Assessment and Plan: * Resumed home medications divalproex 03/16 * No change (9) Hypothyroidism: Code(s): E03.9 - Hypothyroidism, unspecified Status: Chronic Assessment and Plan: * Resumed Levothyroxine 03/16 * Will check TSH level * Continue Synthroid (10) Hypotension: Code(s): I95.9 - Hypotension, unspecified Status: Acute Assessment and Plan: * resume patient's midodrine * monitor BP per unit protocol 03/16 * No change Plan Code status: Full code per patient DVT prophylaxis: Lovenox Stress ulcer prophylaxis: NA PT/OT notes: PT/OT evaluation Disposition: Patient was admitted to the medical unit further evaluation and treatment of pneumonia and generalized weakness family is requesting placement to long-term care facility patient on longer able to care for self care coordination has been consulted. Time Spent With Patient Time with patient: 25 - 35 minutes Subjective Date/time seen: 03/16/24 07:45 Interval history: Interval history:(copy forward from chart) Patient is a 68-year-old female who was sent over to the emergency department by her primary care physician due to increased generalized weakness which has gotten increasingly worse over the last week. Patient is a poor historian some information was gathered via the medical chart as stated from emergency department family has requested patient be placed in long care facility unable to care for self anymore. patient with past medical history of bipolar disorder, CHF, failure to thrive, and depression. initial findings in the emergency department did show a chest x-ray with right lower lobe infiltrate suggestive of pneumonia. Patient with normal WBC, afebrile no respiratory distress. Patient denied CP, SOB, Cough, dizziness, nausea, and vomiting overall states she just did not feel well and has had worsening weakness. upon assessment patient was found to also a systemic rash lower and upper extremities as well as her trunk back as reported from medical chart when she saw her primary patient's daughter reported this began about a month ago with no new medications or changes. patient was admitted to the medical unit for pneumonia, generalized weakness, and failure to thrive. labs were reviewed and unremarkable vital stable. Subjective: Patient is alert to voice. She is noted to have a rash all over her body, on palms of hands and webbing of hands and feet. She denies any new medications, detergents, or food recently. She states she has had the rash for a few days [place] when reviewing her EMR she was seen by Dr. Hughes and he noted that the rash has been there a few months. He put her on Triamcinolone acetonide 0.5% topical cream BID on 03/07/24 without much improvement. Labs and EMR reviewed. Review of Systems Review of Systems: All systems reviewed & are unremarkable except as noted in HPI and below Exam Narrative: General: failure to thrive, very malnourished Head: atraumatic, no encephalopathy Eyes: PERRLA, sclera clear ENT: moist mucous membranes, nasal passages clear Neck: supple, no JVD, no adenopathy, trachea midline Cardiac: Normal S1 and S2. No murmur, gallops or friction rubs, peripheral pulses intact. Respiratory: Lungs clear to auscultation, no adventitious lung sounds, currently on room air Gastrointestinal: soft, non-distended, non-tender, normoactive bowel sounds. : voiding without difficulty. Extremities: moves all extremities well, no edema Skin: rash noted all over torso, BUE, BLE with scabbed and bleeding areas from scratching Neuro: Alert, cranial nerves intact, no neuro deficits. Psych: minimally interactive, flat affect Objective Data Vital Signs Vital Signs: Vital Signs - 24 hr 03/15/24 07:50 03/15/24 16:30 03/16/24 00:00 Temperature 96.9 F L 96.6 F L 97.8 F Pulse Rate 78 77 64 Respiratory Rate 16 16 16 Blood Pressure 130/58 L 144/71 H 131/64 Pulse Oximetry 98 97 98 Oxygen Delivery Room Air Room Air Room Air Intake/Output Intake/Output: Intake & Output 03/13/24 03/14/24 03/15/24 03/16/24 23:59 23:59 23:59 23:59 Intake Total 300 1500 450 Balance 300 1500 450 Meds/Results Medications: Active Medications Generic Name Dose Route Start Last Admin Trade Name Freq PRN Reason Stop Dose Admin Acetaminophen 650 mg 03/14/24 20:34 Acetaminophen 325 Mg Tablet PO Q4H PRN Mild Pain (1-3) or Fever Al Hydrox/Mg Hydrox/Simethicone 30 ml 03/14/24 20:34 Mag Hydrox/Al Hydrox/Simeth 30 Ml Udc PO QID PRN Dyspepsia Amoxicillin/Clavulanate Potassium 1 tablet 03/15/24 09:00 03/15/24 21:50 Amoxicillin/Clavulanate K 875-125 Mg Tab PO 03/19/24 21:01 1 tablet Q12HR [facility] Administration Ascorbic Acid 500 mg 03/15/24 09:00 03/15/24 18:06 Ascorbic Acid 500 Mg Tablet PO 500 mg BID [facility] Administration Aspirin 81 mg 03/15/24 09:00 03/15/24 09:55 Aspirin 81 Mg Enteric Tablet PO 81 mg QAM [facility] Administration Atorvastatin Calcium 80 mg 03/15/24 09:00 03/15/24 09:55 Atorvastatin 40 Mg Tablet PO 80 mg DAILY [facility] Administration Bupropion HCl 150 mg 03/15/24 09:00 03/15/24 09:55 Bupropion Hcl Xl (24 Hr) 150 Mg Tabcr PO 150 mg DAILY [facility] Administration Buspirone HCl 15 mg 03/15/24 09:00 03/15/24 18:06 Buspirone Hcl 5 Mg Tablet PO 15 mg TID [facility] Administration Clopidogrel Bisulfate 75 mg 03/15/24 09:00 03/15/24 09:55 Clopidogrel Bisulfate 75 Mg Tablet PO 75 mg DAILY [facility] Administration Cyanocobalamin 500 mcg 03/15/24 09:00 03/15/24 09:56 Cyanocobalamin 500 Mcg Tablet PO 500 mcg QAM [facility] Administration Diphenhydramine HCl 25 mg 03/15/24 10:06 03/16/24 06:02 Diphenhydramine Hcl Cap 25 Mg Capsule PO 25 mg Q6H PRN Administration Itching Divalproex Sodium 500 mg 03/14/24 22:15 03/15/24 21:[address] 250 Mg Tabec PO 500 mg Q12H [facility] Administration Enoxaparin Sodium 40 mg 03/16/24 09:00 Enoxaparin 40 Mg/0.4 Ml Syringe SUB-Q DAILY [facility] Escitalopram Oxalate 10 mg 03/14/24 21:00 03/15/24 21:50 Escitalopram Oxalate 10 Mg Tablet PO 10 mg HS [facility] Administration Folic Acid 1 mg 03/15/24 09:00 03/15/24 09:58 Folic Acid 1 Mg Tablet PO 1 mg DAILY [facility] Administration Gabapentin 100 mg 03/14/24 22:00 03/16/24 06:02 Gabapentin 100 Mg Capsule BY MOUTH 100 mg Q8HR [facility] Administration Levothyroxine Sodium 75 mcg 03/15/24 09:00 03/16/24 06:02 Levothyroxine Sodium 75 Mcg Tablet PO 75 mcg DAILY@0630 [facility] Administration Megestrol Acetate 40 mg 03/14/24 20:37 Megestrol Acetate (*Chemo) 40 Mg Tablet PO QID PRN loss of appetite Midodrine 5 mg 03/15/24 09:00 03/15/24 18:06 Midodrine Hcl 2.5 Mg Tablet PO 5 mg TID [facility] Administration Potassium Chloride 20 meq 03/15/24 09:00 03/15/24 18:06 Potassium Chloride 20 Meq Er Tablet PO 20 meq BID [facility] Administration Prednisone 40 mg 03/16/24 08:00 Prednisone 20 Mg Tablet PO DAILY@0800 [facility] Trazodone HCl 100 mg 03/14/24 22:25 03/15/24 21:50 Trazodone Hcl 50 Mg Tablet PO 100 mg HS PRN Administration Insomnia Triamcinolone Acetonide 1 applic 03/15/24 17:00 03/15/24 18:06 Triamcinolone Acet 0.1% Cream 80 Gm Tube TOPICAL 1 applic BID [facility] Administration Radiology Results: ITS Impressions Chest X-Ray 03/14/24 19:18 Impression: 1: Left basilar infiltrates, suspicious for pneumonia. Labs Labs: Laboratory Results - last 24 hr 03/15/24 03/16/24 08:40 05:08 WBC 8.2 8.3 RBC 3.66 L 3.32 L Hgb 11.5 L 10.1 L Hct 37.0 33.4 L MCV 101.1 100.6 MCH 31.4 H 30.4 MCHC 31.1 L 30.2 L RDW 13.6 13.5 Plt Count 388 348 MPV 9.3 9.4 Immature Gran % (Auto) 0.6 H Neut % (Auto) 57.0 Lymph % (Auto) 23.3 [place] % (Auto) 13.1 H Eos % (Auto) 5.4 Baso % (Auto) 0.6 Lymph # (Auto) 1.91 [place] # (Auto) 1.07 H Eos # (Auto) 0.44 Baso # (Auto) 0.05 Abs Immat Gran (auto) 0.05 H Absolute Neuts (auto) 4.67 Absolute Nucleated RBC 0.00 Nucleated RBC % 0.0 Sodium 143 142 Potassium 4.4 4.7 Chloride 107 106 Carbon Dioxide 30 29 Anion Gap 6 7 BUN 14 15 Creatinine 0.94 1.00 Estim Creat Clear Calc 40 38 Estimated GFR 59 55 L Glucose 103 H 92 Calculated Osmolality 296 H 294 Calcium 8.7 8.7 Total Bilirubin 0.3 0.3 AST 10 L < 10 L ALT 6 L 8 L Alkaline Phosphatase 69 68 Total Protein 6.4 6.4 Albumin 2.6 L 2.6 L Quality VTE Prophylaxis VTE prophylaxis: pharmacologic ordered
[2024-03-16 08:00] VITALS: BP 134/62; PULSE 84; RESP 16; TEMP 36.6; O2SAT 100
[2024-03-16] MEDS: predniSONE 20 MG TABLET 40 MG PO (08:00)
[2024-03-16 08:50] LABS: Thyroid Stimulating Hormone 0.89 uIU/mL (0.36-3.74)
[2024-03-16] MEDS: ATORVASTATIN 40 MG TABLET 80 MG PO (09:25)
[2024-03-16] MEDS: FOLIC ACID 1 MG TABLET PO (09:25)
[2024-03-16] MEDS: MEGESTROL ACETATE (*CHEMO) 40 MG TABLET PO ×4 (09:25→20:35)
[2024-03-16] MEDS: CYANOCOBALAMIN 500 MCG TABLET PO (09:25)
[2024-03-16] MEDS: POTASSIUM CHLORIDE 20 MEQ ER TABLET PO ×2 (09:25→17:40)
[2024-03-16] MEDS: ASCORBIC ACID 500 MG TABLET PO ×2 (09:25→17:40)
[2024-03-16] MEDS: TRIAMCINOLONE ACET 0.1% CREAM 80 GM TUBE 1 APPLIC TOPICAL ×2 (09:25→17:39)
[2024-03-16] MEDS: busPIRone HCL 5 MG TABLET 15 MG PO ×3 (09:25→17:40)
[2024-03-16] MEDS: DIVALPROEX SODIUM DR 250 MG TABEC 500 MG PO ×2 (09:26→21:13)
[2024-03-16] MEDS: AMOXICILLIN/CLAVULANATE K 875-125 MG TAB 1 TABLET PO ×2 (09:26→20:35)
[2024-03-16] MEDS: buPROPion HCL XL (24 HR) 150 MG TABCR PO (09:26)
[2024-03-16] MEDS: CLOPIDOGREL BISULFATE 75 MG TABLET PO (09:26)
[2024-03-16] MEDS: ASPIRIN 81 MG ENTERIC TABLET PO (09:26)
[2024-03-16] MEDS: MIDODRINE HCL 2.5 MG TABLET 5 MG PO ×3 (09:26→17:40)
[2024-03-16] MEDS: ENOXAPARIN 40 MG/0.4 ML SYRINGE SUB-Q (09:27)
[2024-03-16] MEDS: hydrOXYzine HCL 25 MG TABLET PO ×2 (13:03→20:35)
[2024-03-16 16:00] VITALS: BP 160/80; PULSE 84; RESP 16; TEMP 37; O2SAT 98
[2024-03-16] MEDS: PERMETHRIN 5% 1 EACH TOPICAL (17:40)
--- NOTE | 2024-03-16 17:46 | PC.NURSE ---
1736 patient changed to inpatient status
[2024-03-16 20:00] VITALS: PULSE 84; RESP 16; O2SAT 98
[2024-03-16] MEDS: traZODone HCL 50 MG TABLET 100 MG PO (20:35)
[2024-03-16] MEDS: ACETAMINOPHEN 325 MG TABLET 650 MG PO (20:35)
[2024-03-16] MEDS: ESCITALOPRAM OXALATE 10 MG TABLET PO (20:35)
--- NOTE | 2024-03-16 21:10 | PC.NURSE ---
Medium sized gloves applied to bilateral hands to minimize damage/bleeding from Picking behavior.
[2024-03-17] VITALS: BP 171/64; PULSE 74; RESP 17; TEMP 36.7; O2SAT 99
[2024-03-17] MEDS: diphenhydrAMINE HCl CAP 25 MG CAPSULE PO (01:21)
--- NOTE | 2024-03-17 04:30 | PC.NURSE ---
Shower given at this time, tolerated well.
[2024-03-17] MEDS: GABAPENTIN 100 MG CAPSULE BY MOUTH ×3 (05:41→21:16)
[2024-03-17] MEDS: LEVOTHYROXINE SODIUM 75 MCG TABLET PO (05:41)
[2024-03-17] MEDS: hydrOXYzine HCL 25 MG TABLET PO ×3 (05:41→20:32)
[2024-03-17 08:00] VITALS: BP 176/70; PULSE 84; RESP 20; TEMP 36.7; O2SAT 97
[2024-03-17] MEDS: predniSONE 20 MG TABLET 40 MG PO (08:00)
[2024-03-17 08:21] LABS: Hematocrit 33.9 % (35.0-42.0); Hemoglobin 10.6 g/dL (11.7-13.8); Mean Corpuscular HGB Conc 31.3 g/dL (32-36); Mean Corpuscular Hemoglobin 30.7 pg (27.0-31.0); Mean Corpuscular Volume 98.3 fL (78.0-102.0); Mean Platelet Volume 9.7 fl (9.2-11.8); Platelet Count Result 351 K/mm3 (150-420); Red Blood Count 3.45 M/mm3 (4.20-5.40); Red Cell Distribution Width 13.7 % (11.6-14.4); White Blood Count 8.7 K/mm3 (4.8-10.8)
[2024-03-17 08:32] LABS: Alanine Aminotransferase 9 U/L (14-59); Alkaline Phosphatase 73 U/L (46-116); Anion Gap 12 mmol/L (4-12); Aspartate Amino Transferase < 10 U/L (15-37); Bilirubin,Total 0.4 mg/dL (0.00-1.00); Blood Urea Nitrogen 16 mg/dL (7-18); Calcium 8.9 mg/dL (8.5-10.1); Carbon Dioxide 29 mmol/L (21-32); Chloride 101 mmol/L (98-108); Estimated CRCL calculation 44 ml/min; Estimated Glomerular Filt Rate > 60; Glucose 90 mg/dL (70-99); Osmolality Calculated 295 mOsm/kg (285-295); Potassium 4.3 mmol/L (3.5-5.1); Sodium 142 mmol/L (136-145); Total Protein 6.9 g/dL (6.4-8.2)
[2024-03-17] MEDS: AMOXICILLIN/CLAVULANATE K 875-125 MG TAB 1 TABLET PO ×2 (09:17→20:31)
[2024-03-17] MEDS: ENOXAPARIN 40 MG/0.4 ML SYRINGE SUB-Q (09:17)
[2024-03-17] MEDS: TRIAMCINOLONE ACET 0.1% CREAM 80 GM TUBE 1 APPLIC TOPICAL ×2 (09:17→17:36)
[2024-03-17] MEDS: MEGESTROL ACETATE (*CHEMO) 40 MG TABLET PO ×4 (09:17→20:31)
[2024-03-17] MEDS: ASCORBIC ACID 500 MG TABLET PO ×2 (09:17→17:34)
[2024-03-17] MEDS: ATORVASTATIN 40 MG TABLET 80 MG PO (09:17)
[2024-03-17] MEDS: MIDODRINE HCL 2.5 MG TABLET 5 MG PO ×3 (09:17→17:34)
[2024-03-17] MEDS: CYANOCOBALAMIN 500 MCG TABLET PO (09:17)
[2024-03-17] MEDS: ASPIRIN 81 MG ENTERIC TABLET PO (09:18)
[2024-03-17] MEDS: buPROPion HCL XL (24 HR) 150 MG TABCR PO (09:18)
[2024-03-17] MEDS: CLOPIDOGREL BISULFATE 75 MG TABLET PO (09:18)
[2024-03-17] MEDS: POTASSIUM CHLORIDE 20 MEQ ER TABLET PO ×2 (09:18→17:35)
[2024-03-17] MEDS: DIVALPROEX SODIUM DR 250 MG TABEC 500 MG PO ×2 (09:18→21:16)
[2024-03-17] MEDS: busPIRone HCL 5 MG TABLET 15 MG PO ×3 (09:19→17:35)
[2024-03-17] MEDS: FOLIC ACID 1 MG TABLET PO (09:19)
--- NOTE | 2024-03-17 10:04 | P.PNIM_ITS ---
Progress Note: A&P Assessment and Plan (1) Pneumonia: Qualifiers: Laterality: left Lung location: lower lobe of lung Pneumonia type: due to unspecified organism Qualified Code(s): J18.9 - Pneumonia, unspecified organism Code(s): J18.9 - Pneumonia, unspecified organism Status: Acute Assessment and Plan: CXR left basilar infiltrates suspicious for pneumonia, normal WBC, afebrile, on room air but does have generalized weakness that has worsened over the last week * given Rocephin and azithromycin in the emergency department * transitioned to oral Augmentin * oxygen p.r.n. * incentive spirometer 03/16 * Continue Augmentin and Azithromycin * Continue IS while awake 03/17 * Continue current treatment plan (2) Rash: Code(s): R21 - Rash and other nonspecific skin eruption Status: Acute Assessment and Plan: * systemic rash upper and lower extremities chest and back * treat with prednisone added Benadryl for itching 03/16 * Rash all over body, BUE, BLE and inbetween fingers and toes * Could be a form of eczema, however can not rule out scabies. Left message for daughter to call back. * Continue prednisone * Will order permethrin 5% topical cream x1 now. * Start Atarax for itching * Will isolate for possible scabies 03/17 * Rash showing some improvement with permethrin 5% cream * Continue atarax for itching (3) Generalized weakness: Code(s): R53.1 - Weakness Status: Acute Assessment and Plan: * likely secondary to pneumonia and failure to thrive * PT/OT for evaluation * family requesting SNF 03/16 * Continue PT and OT * Case management following for outpatient rehab needs 03/17 * Continue PT and OT * Will require placement (4) Moderate protein-calorie malnutrition: Code(s): E44.0 - Moderate protein-calorie malnutrition Status: Chronic Assessment and Plan: * secondary to failure to thrive * added protein shakes to each meal * regular diet * Resumed Megace 03/16 * encourage po intake * No change to current treatment plan 03/17 * No change (5) Adult failure to thrive: Code(s): R62.7 - Adult failure to thrive Status: Acute Assessment and Plan: patient has been worsening for the last year patient's passed around a year ago suffering from depression, bipolar disorder and anxiety * watermelon harvesting supervisor placement * see above 3 03/16 * Continue PT and OT * Case management working on placement 03/17 * No change (6) Depression: Code(s): F32.9 - Major depressive disorder, single episode, unspecified Status: Chronic Assessment and Plan: * Resumed home medications BuSpar and Wellbutrin, citalopram 03/16 * No change (7) Anxiety: Code(s): F41.9 - Anxiety disorder, unspecified Status: Chronic Assessment and Plan: * Resumed home medications BuSpar and Wellbutrin 03/16 * No change (8) Bipolar disorder: Code(s): F31.9 - Bipolar disorder, unspecified Status: Chronic Assessment and Plan: * Resumed home medications divalproex 03/16 * No change (9) Hypothyroidism: Code(s): E03.9 - Hypothyroidism, unspecified Status: Chronic Assessment and Plan: * Resumed Levothyroxine 03/16 * Will check TSH level * Continue Synthroid 03/17 * TSH 0.89 (10) Hypotension: Code(s): I95.9 - Hypotension, unspecified Status: Acute Assessment and Plan: * resume patient's midodrine * monitor BP per unit protocol 03/16 * No change Plan Code status: Full code per patient DVT prophylaxis: Lovenox Stress ulcer prophylaxis: NA PT/OT notes: PT/OT evaluation Disposition: Patient was admitted to the medical unit further evaluation and treatment of pneumonia and generalized weakness family is requesting placement to long-term care facility patient on longer able to care for self care coordination has been consulted. Time Spent With Patient Time with patient: 15 - 25 minutes Subjective Date/time seen: 03/17/24 10:04 Interval history: Interval history:(copy forward from chart) Patient is a 68-year-old female who was sent over to the emergency department by her primary care physician due to increased generalized weakness which has gotten increasingly worse over the last week. Patient is a poor historian some information was gathered via the medical chart as stated from emergency department family has requested patient be placed in long care facility unable to care for self anymore. patient with past medical history of bipolar disorder, CHF, failure to thrive, and depression. initial findings in the emergency department did show a chest x-ray with right lower lobe infiltrate suggestive of pneumonia. Patient with normal WBC, afebrile no respiratory distress. Patient denied CP, SOB, Cough, dizziness, nausea, and vomiting overall states she just did not feel well and has had worsening weakness. upon assessment patient was found to also a systemic rash lower and upper extremities as well as her trunk back as reported from medical chart when she saw her primary patient's daughter reported this began about a month ago with no new medications or changes. patient was admitted to the medical unit for pneumonia, generalized weakness, and failure to thrive. labs were reviewed and unremarkable vital stable. Subjective: Patient denies any new complaints today. Labs reviewed. Review of Systems Review of Systems: All systems reviewed & are unremarkable except as noted in HPI and below Exam Narrative: General: failure to thrive, very malnourished Cardiac: Normal S1 and S2. No murmur, gallops or friction rubs, peripheral pulses intact. Respiratory: Lungs clear to auscultation, no adventitious lung sounds, currently on room air Gastrointestinal: soft, non-distended, non-tender, normoactive bowel sounds. : voiding without difficulty. Extremities: moves all extremities well, no edema Skin: rash noted all over torso, BUE, BLE with scabbed and bleeding areas from scratching Neuro: Alert Objective Data Vital Signs Vital Signs: Vital Signs - 24 hr 03/16/24 16:00 03/16/24 20:00 03/17/24 00:00 Temperature 98.6 F 98.0 F Pulse Rate 84 84 74 Respiratory Rate 16 16 17 Blood Pressure 160/80 H 171/64 H Pulse Oximetry 98 98 99 Oxygen Delivery Room Air Room Air Room Air Intake/Output Intake/Output: Intake & Output 03/14/24 03/15/24 03/16/24 03/17/24 23:59 23:59 23:59 23:59 Intake Total 300 1500 1780 240 Balance 300 1500 1780 240 Meds/Results Medications: Active Medications Generic Name Dose Route Start Last Admin Trade Name Freq PRN Reason Stop Dose Admin Acetaminophen 650 mg 03/14/24 20:34 03/16/24 20:35 Acetaminophen 325 Mg Tablet PO 650 mg Q4H PRN Administration Mild Pain (1-3) or Fever Al Hydrox/Mg Hydrox/Simethicone 30 ml 03/14/24 20:34 Mag Hydrox/Al Hydrox/Simeth 30 Ml Udc PO QID PRN Dyspepsia Amoxicillin/Clavulanate Potassium 1 tablet 03/15/24 09:00 03/17/24 09:17 Amoxicillin/Clavulanate K 875-125 Mg Tab PO 03/19/24 21:01 1 tablet Q12HR [facility] Administration Ascorbic Acid 500 mg 03/15/24 09:00 03/17/24 09:17 Ascorbic Acid 500 Mg Tablet PO 500 mg BID [facility] Administration Aspirin 81 mg 03/15/24 09:00 03/17/24 09:18 Aspirin 81 Mg Enteric Tablet PO 81 mg QAM [facility] Administration Atorvastatin Calcium 80 mg 03/15/24 09:00 03/17/24 09:17 Atorvastatin 40 Mg Tablet PO 80 mg DAILY [facility] Administration Bupropion HCl 150 mg 03/15/24 09:00 03/17/24 09:18 Bupropion Hcl Xl (24 Hr) 150 Mg Tabcr PO 150 mg DAILY [facility] Administration Buspirone HCl 15 mg 03/15/24 09:00 03/17/24 09:19 Buspirone Hcl 5 Mg Tablet PO 15 mg TID [facility] Administration Clopidogrel Bisulfate 75 mg 03/15/24 09:00 03/17/24 09:18 Clopidogrel Bisulfate 75 Mg Tablet PO 75 mg DAILY [facility] Administration Cyanocobalamin 500 mcg 03/15/24 09:00 03/17/24 09:17 Cyanocobalamin 500 Mcg Tablet PO 500 mcg QAM [facility] Administration Diphenhydramine HCl 25 mg 03/15/24 10:06 03/17/24 01:21 Diphenhydramine Hcl Cap 25 Mg Capsule PO 25 mg Q6H PRN Administration Itching Divalproex Sodium 500 mg 03/14/24 22:15 03/17/24 09:[address] 250 Mg Tabec PO 500 mg Q12H [facility] Administration Enoxaparin Sodium 40 mg 03/16/24 09:00 03/17/24 09:17 Enoxaparin 40 Mg/0.4 Ml Syringe SUB-Q 40 mg DAILY [facility] Administration Escitalopram Oxalate 10 mg 03/14/24 21:00 03/16/24 20:35 Escitalopram Oxalate 10 Mg Tablet PO 10 mg HS [facility] Administration Folic Acid 1 mg 03/15/24 09:00 03/17/24 09:19 Folic Acid 1 Mg Tablet PO 1 mg DAILY [facility] Administration Gabapentin 100 mg 03/14/24 22:00 03/17/24 05:41 Gabapentin 100 Mg Capsule BY MOUTH 100 mg Q8HR [facility] Administration Hydroxyzine HCl 25 mg 03/16/24 11:24 03/17/24 05:41 Hydroxyzine Hcl 25 Mg Tablet PO 25 mg Q6H PRN Administration Itching Levothyroxine Sodium 75 mcg 03/15/24 09:00 03/17/24 05:41 Levothyroxine Sodium 75 Mcg Tablet PO 75 mcg DAILY@0630 [facility] Administration Megestrol Acetate 40 mg 03/16/24 13:00 03/17/24 09:17 Megestrol Acetate (*Chemo) 40 Mg Tablet PO 40 mg QID [facility] Administration Midodrine 5 mg 03/15/24 09:00 03/17/24 09:17 Midodrine Hcl 2.5 Mg Tablet PO 5 mg TID [facility] Administration Nonform Permethrin 1 each 03/16/24 18:00 03/16/24 17:40 Cream 5% TOPICAL 04/15/24 17:59 1 each WEEKLY@1800 [facility] Administration Potassium Chloride 20 meq 03/15/24 09:00 03/17/24 09:18 Potassium Chloride 20 Meq Er Tablet PO 20 meq BID [facility] Administration Prednisone 40 mg 03/16/24 08:00 03/17/24 08:00 Prednisone 20 Mg Tablet PO 40 mg DAILY@0800 [facility] Administration Trazodone HCl 100 mg 03/14/24 22:25 03/16/24 20:35 Trazodone Hcl 50 Mg Tablet PO 100 mg HS PRN Administration Insomnia Triamcinolone Acetonide 1 applic 03/15/24 17:00 03/17/24 09:17 Triamcinolone Acet 0.1% Cream 80 Gm Tube TOPICAL 1 applic BID [facility] Administration Radiology Results: ITS Impressions Chest X-Ray 03/14/24 19:18 Impression: 1: Left basilar infiltrates, suspicious for pneumonia. Labs Labs: Laboratory Results - last 24 hr 03/17/24 08:11 WBC 8.7 RBC 3.45 L Hgb 10.6 L Hct 33.9 L MCV 98.3 MCH 30.7 MCHC 31.3 L RDW 13.7 Plt Count 351 MPV 9.7 Sodium 142 Potassium 4.3 Chloride 101 Carbon Dioxide 29 Anion Gap 12 BUN 16 Creatinine 0.84 Estim Creat Clear Calc 44 Estimated GFR > 60 Glucose 90 Calculated Osmolality 295 Calcium 8.9 Total Bilirubin 0.4 AST < 10 L ALT 9 L Alkaline Phosphatase 73 Total Protein 6.9 Albumin 3.0 L Quality VTE Prophylaxis VTE prophylaxis: pharmacologic ordered
[2024-03-17 16:00] VITALS: BP 152/58; PULSE 73; RESP 16; TEMP 36.7; O2SAT 98
[2024-03-17 20:00] VITALS: PULSE 73; RESP 16; O2SAT 98
[2024-03-17] MEDS: traZODone HCL 50 MG TABLET 100 MG PO (20:31)
[2024-03-17] MEDS: ESCITALOPRAM OXALATE 10 MG TABLET PO (20:32)
[2024-03-17] MEDS: ACETAMINOPHEN 325 MG TABLET 650 MG PO (20:32)
[2024-03-18] VITALS: BP 161/74; PULSE 83; RESP 18; TEMP 37.2; O2SAT 99
[2024-03-18 05:31] LABS: Hematocrit 36.9 % (35.0-42.0); Hemoglobin 11.4 g/dL (11.7-13.8); Mean Corpuscular HGB Conc 30.9 g/dL (32-36); Mean Corpuscular Hemoglobin 30.5 pg (27.0-31.0); Mean Corpuscular Volume 98.7 fL (78.0-102.0); Mean Platelet Volume 9.3 fl (9.2-11.8); Platelet Count Result 394 K/mm3 (150-420); Red Blood Count 3.74 M/mm3 (4.20-5.40); Red Cell Distribution Width 13.9 % (11.6-14.4); White Blood Count 16.4 K/mm3 (4.8-10.8)
[2024-03-18] MEDS: GABAPENTIN 100 MG CAPSULE BY MOUTH ×3 (05:42→22:01)
[2024-03-18] MEDS: hydrOXYzine HCL 25 MG TABLET PO ×2 (05:42→22:01)
[2024-03-18] MEDS: LEVOTHYROXINE SODIUM 75 MCG TABLET PO (05:42)
[2024-03-18 05:46] LABS: Alanine Aminotransferase 14 U/L (14-59); Alkaline Phosphatase 70 U/L (46-116); Anion Gap 6 mmol/L (4-12); Aspartate Amino Transferase < 10 U/L (15-37); Bilirubin,Total 0.2 mg/dL (0.00-1.00); Blood Urea Nitrogen 16 mg/dL (7-18); Calcium 9.6 mg/dL (8.5-10.1); Carbon Dioxide 31 mmol/L (21-32); Chloride 105 mmol/L (98-108); Estimated CRCL calculation 40 ml/min; Estimated Glomerular Filt Rate 60; Glucose 90 mg/dL (70-99); Osmolality Calculated 295 mOsm/kg (285-295); Potassium 4.4 mmol/L (3.5-5.1); Sodium 142 mmol/L (136-145); Total Protein 6.8 g/dL (6.4-8.2)
[2024-03-18 07:45] VITALS: BP 153/59; PULSE 70; RESP 18; TEMP 36.3; O2SAT 98
[2024-03-18] MEDS: AMOXICILLIN/CLAVULANATE K 875-125 MG TAB 1 TABLET PO ×2 (09:06→22:01)
[2024-03-18] MEDS: POTASSIUM CHLORIDE 20 MEQ ER TABLET PO ×2 (09:06→17:10)
[2024-03-18] MEDS: ASPIRIN 81 MG ENTERIC TABLET PO (09:06)
[2024-03-18] MEDS: predniSONE 20 MG TABLET 40 MG PO (09:06)
[2024-03-18] MEDS: TRIAMCINOLONE ACET 0.1% CREAM 80 GM TUBE 1 APPLIC TOPICAL ×2 (09:06→17:10)
[2024-03-18] MEDS: ATORVASTATIN 40 MG TABLET 80 MG PO (09:06)
[2024-03-18] MEDS: ASCORBIC ACID 500 MG TABLET PO ×2 (09:06→17:09)
[2024-03-18] MEDS: FOLIC ACID 1 MG TABLET PO (09:06)
[2024-03-18] MEDS: ENOXAPARIN 40 MG/0.4 ML SYRINGE SUB-Q (09:06)
[2024-03-18] MEDS: CLOPIDOGREL BISULFATE 75 MG TABLET PO (09:07)
[2024-03-18] MEDS: DIVALPROEX SODIUM DR 250 MG TABEC 500 MG PO ×2 (09:07→22:01)
[2024-03-18] MEDS: CYANOCOBALAMIN 500 MCG TABLET PO (09:07)
[2024-03-18] MEDS: buPROPion HCL XL (24 HR) 150 MG TABCR PO (09:07)
[2024-03-18] MEDS: MEGESTROL ACETATE (*CHEMO) 40 MG TABLET PO ×4 (09:07→22:01)
[2024-03-18] MEDS: busPIRone HCL 5 MG TABLET 15 MG PO ×3 (09:07→17:09)
--- NOTE | 2024-03-18 09:57 | P.PNIM_ITS ---
Progress Note: A&P Assessment and Plan (1) Pneumonia: Qualifiers: Laterality: left Lung location: lower lobe of lung Pneumonia type: due to unspecified organism Qualified Code(s): J18.9 - Pneumonia, unspecified organism Code(s): J18.9 - Pneumonia, unspecified organism Status: Acute Assessment and Plan: CXR left basilar infiltrates suspicious for pneumonia, normal WBC, afebrile, on room air but does have generalized weakness that has worsened over the last week * given Rocephin and azithromycin in the emergency department * transitioned to oral Augmentin * oxygen p.r.n. * incentive spirometer 03/16 * Continue Augmentin and Azithromycin * Continue IS while awake 03/17 * Continue current treatment plan 03/18 * No change (2) Rash: Code(s): R21 - Rash and other nonspecific skin eruption Status: Acute Assessment and Plan: * systemic rash upper and lower extremities chest and back * treat with prednisone added Benadryl for itching 03/16 * Rash all over body, BUE, BLE and inbetween fingers and toes * Could be a form of eczema, however can not rule out scabies. Left message for daughter to call back. * Continue prednisone * Will order permethrin 5% topical cream x1 now. * Start Atarax for itching * Will isolate for possible scabies 03/17 * Rash showing some improvement with permethrin 5% cream * Continue atarax for itching 03/18 * rash improving but still with mild itch * Stopped prednisone * can continue with cream * Bed bugs vs scabies vs systemic dermatitis (3) Generalized weakness: Code(s): R53.1 - Weakness Status: Acute Assessment and Plan: * likely secondary to pneumonia and failure to thrive * PT/OT for evaluation * family requesting SNF 03/16 * Continue PT and OT * Case management following for outpatient rehab needs 03/17 * Continue PT and OT * Will require placement (4) Moderate protein-calorie malnutrition: Code(s): E44.0 - Moderate protein-calorie malnutrition Status: Chronic Assessment and Plan: * secondary to failure to thrive * added protein shakes to each meal * regular diet * Resumed Megace 03/16 * encourage po intake * No change to current treatment plan 03/17 * No change (5) Adult failure to thrive: Code(s): R62.7 - Adult failure to thrive Status: Acute Assessment and Plan: patient has been worsening for the last year patient's passed around a year ago suffering from depression, bipolar disorder and anxiety * [facility] placement * see above 3 03/16 * Continue PT and OT * Case management working on placement 03/17 * No change (6) Depression: Code(s): F32.9 - Major depressive disorder, single episode, unspecified Status: Chronic Assessment and Plan: * Resumed home medications BuSpar and Wellbutrin, citalopram 03/16 * No change (7) Anxiety: Code(s): F41.9 - Anxiety disorder, unspecified Status: Chronic Assessment and Plan: * Resumed home medications BuSpar and Wellbutrin 03/16 * No change (8) Bipolar disorder: Code(s): F31.9 - Bipolar disorder, unspecified Status: Chronic Assessment and Plan: * Resumed home medications divalproex 03/16 * No change (9) Hypothyroidism: Code(s): E03.9 - Hypothyroidism, unspecified Status: Chronic Assessment and Plan: * Resumed Levothyroxine 03/16 * Will check TSH level * Continue Synthroid 03/17 * TSH 0.89 (10) Hypotension: Code(s): I95.9 - Hypotension, unspecified Status: Acute Assessment and Plan: * resume patient's midodrine * monitor BP per unit protocol 03/16 * No change Plan Code status: Full code per patient DVT prophylaxis: Lovenox Stress ulcer prophylaxis: NA PT/OT notes: PT/OT evaluation Disposition: Patient was admitted to the medical unit further evaluation and treatment of pneumonia and generalized weakness family is requesting placement to long-term care facility patient on longer able to care for self care coordination has been consulted. Time Spent With Patient Time with patient: 15 - 25 minutes Subjective Date/time seen: 03/18/24 09:57 Interval history: Patient is a 68-year-old female who was admitted to the medical unit for further evaluation and treatment generalized weakness, pneumonia, and failure to thrive 03/18/2024: Assumed Care patient in bed eating breakfast alert and oriented at baseline denies any new complaints and rash appears to be improving but patient is still with minimal itching. Review of Systems Review of Systems: All systems reviewed & are unremarkable except as noted in HPI and below Exam Narrative: General: failure to thrive, very malnourished Cardiac: Normal S1 and S2. No murmur, gallops or friction rubs, peripheral pulse s intact. Respiratory: Lungs clear to auscultation, no adventitious lung sounds, currently on room air Gastrointestinal: soft, non-distended, non-tender, normoactive bowel sounds. : voiding without difficulty. Extremities: moves all extremities well, no edema Skin: rash noted all over torso, BUE, BLE with scabbed and bleeding areas from scratching Neuro: Alert Objective Data Vital Signs Vital Signs: Vital Signs - 24 hr 03/17/24 16:00 03/17/24 20:00 03/18/24 00:00 Temperature 98.1 F 98.9 F Pulse Rate 73 73 83 Respiratory Rate 16 16 18 Blood Pressure 152/58 H 161/74 H Pulse Oximetry 98 98 99 Oxygen Delivery Room Air Room Air Room Air Intake/Output Intake/Output: Intake & Output 03/15/24 03/16/24 03/17/24 03/18/24 23:59 23:59 23:59 23:59 Intake Total 1500 1780 1410 480 Balance 1500 1780 1410 480 Meds/Results Medications: Active Medications Generic Name Dose Route Start Last Admin Trade Name Freq PRN Reason Stop Dose Admin Acetaminophen 650 mg 03/14/24 20:34 03/17/24 20:32 Acetaminophen 325 Mg Tablet PO 650 mg Q4H PRN Administration Mild Pain (1-3) or Fever Al Hydrox/Mg Hydrox/Simethicone 30 ml 03/14/24 20:34 Mag Hydrox/Al Hydrox/Simeth 30 Ml Udc PO QID PRN Dyspepsia Amoxicillin/Clavulanate Potassium 1 tablet 03/15/24 09:00 03/18/24 09:06 Amoxicillin/Clavulanate K 875-125 Mg Tab PO 03/19/24 21:01 1 tablet Q12HR [facility] Administration Ascorbic Acid 500 mg 03/15/24 09:00 03/18/24 09:06 Ascorbic Acid 500 Mg Tablet PO 500 mg BID [facility] Administration Aspirin 81 mg 03/15/24 09:00 03/18/24 09:06 Aspirin 81 Mg Enteric Tablet PO 81 mg QAM [facility] Administration Atorvastatin Calcium 80 mg 03/15/24 09:00 03/18/24 09:06 Atorvastatin 40 Mg Tablet PO 80 mg DAILY [facility] Administration Bupropion HCl 150 mg 03/15/24 09:00 03/18/24 09:07 Bupropion Hcl Xl (24 Hr) 150 Mg Tabcr PO 150 mg DAILY [facility] Administration Buspirone HCl 15 mg 03/15/24 09:00 03/18/24 09:07 Buspirone Hcl 5 Mg Tablet PO 15 mg TID [facility] Administration Clopidogrel Bisulfate 75 mg 03/15/24 09:00 03/18/24 09:07 Clopidogrel Bisulfate 75 Mg Tablet PO 75 mg DAILY [facility] Administration Cyanocobalamin 500 mcg 03/15/24 09:00 03/18/24 09:07 Cyanocobalamin 500 Mcg Tablet PO 500 mcg QAM [facility] Administration Diphenhydramine HCl 25 mg 03/15/24 10:06 03/17/24 01:21 Diphenhydramine Hcl Cap 25 Mg Capsule PO 25 mg Q6H PRN Administration Itching Divalproex Sodium 500 mg 03/14/24 22:15 03/18/24 09:[address] 250 Mg Tabec PO 500 mg Q12H [facility] Administration Enoxaparin Sodium 40 mg 03/16/24 09:00 03/18/24 09:06 Enoxaparin 40 Mg/0.4 Ml Syringe SUB-Q 40 mg DAILY [facility] Administration Escitalopram Oxalate 10 mg 03/14/24 21:00 03/17/24 20:32 Escitalopram Oxalate 10 Mg Tablet PO 10 mg HS [facility] Administration Folic Acid 1 mg 03/15/24 09:00 03/18/24 09:06 Folic Acid 1 Mg Tablet PO 1 mg DAILY [facility] Administration Gabapentin 100 mg 03/14/24 22:00 03/18/24 05:42 Gabapentin 100 Mg Capsule BY MOUTH 100 mg Q8HR [facility] Administration Hydroxyzine HCl 25 mg 03/16/24 11:24 03/18/24 05:42 Hydroxyzine Hcl 25 Mg Tablet PO 25 mg Q6H PRN Administration Itching Levothyroxine Sodium 75 mcg 03/15/24 09:00 03/18/24 05:42 Levothyroxine Sodium 75 Mcg Tablet PO 75 mcg DAILY@0630 [facility] Administration Megestrol Acetate 40 mg 03/16/24 13:00 03/18/24 09:07 Megestrol Acetate (*Chemo) 40 Mg Tablet PO 40 mg QID [facility] Administration Nonform Permethrin 1 each 03/16/24 18:00 03/16/24 17:40 Cream 5% TOPICAL 04/15/24 17:59 1 each WEEKLY@1800 [facility] Administration Potassium Chloride 20 meq 03/15/24 09:00 03/18/24 09:06 Potassium Chloride 20 Meq Er Tablet PO 20 meq BID [facility] Administration Prednisone 40 mg 03/16/24 08:00 03/18/24 09:06 Prednisone 20 Mg Tablet PO 40 mg DAILY@0800 [facility] Administration Trazodone HCl 100 mg 03/14/24 22:25 03/17/24 20:31 Trazodone Hcl 50 Mg Tablet PO 100 mg HS PRN Administration Insomnia Triamcinolone Acetonide 1 applic 03/15/24 17:00 03/18/24 09:06 Triamcinolone Acet 0.1% Cream 80 Gm Tube TOPICAL 1 applic BID [facility] Administration Radiology Results: ITS Impressions Chest X-Ray 03/14/24 19:18 Impression: 1: Left basilar infiltrates, suspicious for pneumonia. Labs Labs: Laboratory Results - last 24 hr 03/18/24 05:19 WBC 16.4 H RBC 3.74 L Hgb 11.4 L Hct 36.9 MCV 98.7 MCH 30.5 MCHC 30.9 L RDW 13.9 Plt Count 394 MPV 9.3 Sodium 142 Potassium 4.4 Chloride 105 Carbon Dioxide 31 Anion Gap 6 BUN 16 Creatinine 0.93 Estim Creat Clear Calc 40 Estimated GFR 60 Glucose 90 Calculated Osmolality 295 Calcium 9.6 Total Bilirubin 0.2 AST < 10 L ALT 14 Alkaline Phosphatase 70 Total Protein 6.8 Albumin 3.0 L Quality VTE Prophylaxis VTE prophylaxis: pharmacologic ordered -Patient's previous records reviewed on admission -ER notes reviewed in detail on admission -discussed all findings and current treatment plan with patient/Family/POA -Consultations reviewed for recommendations -Patient's disposition for safe discharge discussed with hospice case manager Dictation performed by [employer] direct speech recognition software, therefore assembly press operator variants and typographical errors may occur. Hospitalist [facility] Advance Care Plan I have confirmed that the patient's Advanced Care Plan is present, code status is documented, or surrogate decision maker is listed in patient medical record.: Yes Medication Reconciliation I have utilized all available resources to obtain, update and review the patients current medications (includes all prescriptions, OTC, herbals, cannabis, and nutritional supplements).: Yes The patient is not eligible for med reconciliation; the patient is in a emergent medical situation where delaying treatment would jeopardize the patients health.: No
[2024-03-18 16:20] VITALS: BP 136/72; PULSE 76; RESP 16; TEMP 36.6; O2SAT 98
[2024-03-18] MEDS: ESCITALOPRAM OXALATE 10 MG TABLET PO (22:01)
[2024-03-19] VITALS: BP 155/59; PULSE 74; RESP 18; TEMP 36.9; O2SAT 87
[2024-03-19] MEDS: ACETAMINOPHEN 325 MG TABLET 650 MG PO (01:07)
[2024-03-19] MEDS: traZODone HCL 50 MG TABLET 100 MG PO ×2 (01:07→21:49)
[2024-03-19] MEDS: diphenhydrAMINE HCl CAP 25 MG CAPSULE PO (01:07)
[2024-03-19 05:21] LABS: Mean Corpuscular HGB Conc 30.6 g/dL (32-36); Mean Corpuscular Hemoglobin 30.3 pg (27.0-31.0); Mean Corpuscular Volume 99.2 fL (78.0-102.0); Mean Platelet Volume 9.5 fl (9.2-11.8); Platelet Count Result 356 K/mm3 (150-420); Red Blood Count 3.63 M/mm3 (4.20-5.40); Red Cell Distribution Width 13.8 % (11.6-14.4); White Blood Count 13.1 K/mm3 (4.8-10.8)
[2024-03-19 05:36] LABS: Alanine Aminotransferase 12 U/L (14-59); Albumin Level 2.8 g/dL (3.4-5.0); Alkaline Phosphatase 76 U/L (46-116); Anion Gap 6 mmol/L (4-12); Aspartate Amino Transferase 11 U/L (15-37); Bilirubin,Total 0.2 mg/dL (0.00-1.00); Blood Urea Nitrogen 21 mg/dL (7-18); Calcium 9.3 mg/dL (8.5-10.1); Carbon Dioxide 30 mmol/L (21-32); Chloride 103 mmol/L (98-108); Estimated CRCL calculation 37 ml/min; Estimated Glomerular Filt Rate 57; Glucose 87 mg/dL (70-99); Osmolality Calculated 290 mOsm/kg (285-295); Potassium 4.8 mmol/L (3.5-5.1); Sodium 139 mmol/L (136-145); Total Protein 6.4 g/dL (6.4-8.2)
[2024-03-19] MEDS: LEVOTHYROXINE SODIUM 75 MCG TABLET PO (06:40)
[2024-03-19] MEDS: GABAPENTIN 100 MG CAPSULE BY MOUTH ×3 (06:40→21:49)
[2024-03-19 07:45] VITALS: BP 148/68; PULSE 88; RESP 16; TEMP 36.7; O2SAT 98
[2024-03-19] MEDS: ASPIRIN 81 MG ENTERIC TABLET PO (09:21)
[2024-03-19] MEDS: ENOXAPARIN 40 MG/0.4 ML SYRINGE SUB-Q (09:21)
[2024-03-19] MEDS: busPIRone HCL 5 MG TABLET 15 MG PO ×3 (09:21→17:25)
[2024-03-19] MEDS: MEGESTROL ACETATE (*CHEMO) 40 MG TABLET PO ×4 (09:21→21:49)
[2024-03-19] MEDS: CLOPIDOGREL BISULFATE 75 MG TABLET PO (09:21)
[2024-03-19] MEDS: ASCORBIC ACID 500 MG TABLET PO ×2 (09:21→17:25)
[2024-03-19] MEDS: DIVALPROEX SODIUM DR 250 MG TABEC 500 MG PO ×2 (09:21→21:49)
[2024-03-19] MEDS: POTASSIUM CHLORIDE 20 MEQ ER TABLET PO ×2 (09:22→17:25)
[2024-03-19] MEDS: AMOXICILLIN/CLAVULANATE K 875-125 MG TAB 1 TABLET PO ×2 (09:22→21:49)
[2024-03-19] MEDS: CYANOCOBALAMIN 500 MCG TABLET PO (09:22)
[2024-03-19] MEDS: ATORVASTATIN 40 MG TABLET 80 MG PO (09:22)
[2024-03-19] MEDS: TRIAMCINOLONE ACET 0.1% CREAM 80 GM TUBE 1 APPLIC TOPICAL ×2 (09:22→17:26)
[2024-03-19] MEDS: buPROPion HCL XL (24 HR) 150 MG TABCR PO (09:22)
[2024-03-19] MEDS: FOLIC ACID 1 MG TABLET PO (09:22)
--- NOTE | 2024-03-19 10:38 | P.PNIM_ITS ---
Progress Note: A&P Assessment and Plan (1) Pneumonia: Qualifiers: Laterality: left Lung location: lower lobe of lung Pneumonia type: due to unspecified organism Qualified Code(s): J18.9 - Pneumonia, unspecified organism Code(s): J18.9 - Pneumonia, unspecified organism Status: Acute Assessment and Plan: CXR left basilar infiltrates suspicious for pneumonia, normal WBC, afebrile, on room air but does have generalized weakness that has worsened over the last week * given Rocephin and azithromycin in the emergency department * transitioned to oral Augmentin * oxygen p.r.n. * incentive spirometer 03/16 * Continue Augmentin and Azithromycin * Continue IS while awake 03/17 * Continue current treatment plan 03/18 * No change RESOLVED (2) Rash: Code(s): R21 - Rash and other nonspecific skin eruption Status: Acute Assessment and Plan: * systemic rash upper and lower extremities chest and back * treat with prednisone added Benadryl for itching 03/16 * Rash all over body, BUE, BLE and inbetween fingers and toes * Could be a form of eczema, however can not rule out scabies. Left message for daughter to call back. * Continue prednisone * Will order permethrin 5% topical cream x1 now. * Start Atarax for itching * Will isolate for possible scabies 03/17 * Rash showing some improvement with permethrin 5% cream * Continue atarax for itching 03/18 * rash improving but still with mild itch * Stopped prednisone * can continue with cream * Bed bugs vs scabies vs systemic dermatitis (3) Generalized weakness: Code(s): R53.1 - Weakness Status: Acute Assessment and Plan: * likely secondary to pneumonia and failure to thrive * PT/OT for evaluation * family requesting SNF 03/16 * Continue PT and OT * Case management following for outpatient rehab needs 03/17 * Continue PT and OT * Will require placement (4) Moderate protein-calorie malnutrition: Code(s): E44.0 - Moderate protein-calorie malnutrition Status: Chronic Assessment and Plan: * secondary to failure to thrive * added protein shakes to each meal * regular diet * Resumed Megace 03/16 * encourage po intake * No change to current treatment plan 03/17 * No change (5) Adult failure to thrive: Code(s): R62.7 - Adult failure to thrive Status: Acute Assessment and Plan: patient has been worsening for the last year patient's passed around a year ago suffering from depression, bipolar disorder and anxiety * termite renewal inspector placement * see above 3 03/16 * Continue PT and OT * Case management working on placement 03/17 * No change (6) Depression: Code(s): F32.9 - Major depressive disorder, single episode, unspecified Status: Chronic Assessment and Plan: * Resumed home medications BuSpar and Wellbutrin, citalopram 03/16 * No change (7) Anxiety: Code(s): F41.9 - Anxiety disorder, unspecified Status: Chronic Assessment and Plan: * Resumed home medications BuSpar and Wellbutrin 03/16 * No change (8) Bipolar disorder: Code(s): F31.9 - Bipolar disorder, unspecified Status: Chronic Assessment and Plan: * Resumed home medications divalproex 03/16 * No change (9) Hypothyroidism: Code(s): E03.9 - Hypothyroidism, unspecified Status: Chronic Assessment and Plan: * Resumed Levothyroxine 03/16 * Will check TSH level * Continue Synthroid 03/17 * TSH 0.89 (10) Hypotension: Code(s): I95.9 - Hypotension, unspecified Status: Acute Assessment and Plan: * resume patient's midodrine * monitor BP per unit protocol 03/16 * No change Plan Code status: Full code per patient DVT prophylaxis: Lovenox Stress ulcer prophylaxis: NA PT/OT notes: PT/OT evaluation Disposition: Patient was admitted to the medical unit further evaluation and treatment of pneumonia and generalized weakness family is requesting placement to long-term care facility her care coordination patient has outstanding financial obligation to previous prison facility however unable to get in contact with patient's family and caregiver care coordination has placed a call to adult protective Services awaiting investigation and plans for discharge so patient could have a safe discharge. Time Spent With Patient Time with patient: 15 - 25 minutes Subjective Date/time seen: 03/19/24 10:38 Interval history: Patient is a 68-year-old female who was admitted to the medical unit for further evaluation and treatment generalized weakness, pneumonia, and failure to thrive 03/19/2024: Assumed Care patient up in chair has no complaints today did report her itching and rash has improved patient ready to go home however we are having difficulty c ontacting patient's family patient unable to go to long-term care facility due to outstanding financial issues. Care coordination did place a call to adult protective Services can discharge when patient has safe discharge. Review of Systems Review of Systems: All systems reviewed & are unremarkable except as noted in HPI and below Exam Narrative: General: failure to thrive, very malnourished Cardiac: Normal S1 and S2. No murmur, gallops or friction rubs, peripheral pulses intact. Respiratory: Lungs clear to auscultation, no adventitious lung sounds, currently on room air Gastrointestinal: soft, non-distended, non-tender, normoactive bowel sounds. : voiding without difficulty. Extremities: moves all extremities well, no edema Skin: rash noted all over torso, BUE, BLE with scabbed and bleeding areas from scratching Neuro: Alert Objective Data Vital Signs Vital Signs: Vital Signs - 24 hr 03/18/24 16:20 03/19/24 00:00 03/19/24 07:45 Temperature 97.9 F 98.5 F 98.1 F Pulse Rate 76 74 88 Respiratory Rate 16 18 16 Blood Pressure 136/72 155/59 H 148/68 H Pulse Oximetry 98 87 L 98 Oxygen Delivery Room Air Room Air Room Air Intake/Output Intake/Output: Intake & Output 03/16/24 03/17/24 03/18/24 03/19/24 23:59 23:59 23:59 23:59 Intake Total 1780 1410 2392 1420 Output Total 100 Balance 1780 1410 2392 1320 Meds/Results Medications: Active Medications Generic Name Dose Route Start Last Admin Trade Name Freq PRN Reason Stop Dose Admin Acetaminophen 650 mg 03/14/24 20:34 03/19/24 01:07 Acetaminophen 325 Mg Tablet PO 650 mg Q4H PRN Administration Mild Pain (1-3) or Fever Al Hydrox/Mg Hydrox/Simethicone 30 ml 03/14/24 20:34 Mag Hydrox/Al Hydrox/Simeth 30 Ml Udc PO QID PRN Dyspepsia Amoxicillin/Clavulanate Potassium 1 tablet 03/15/24 09:00 03/19/24 09:22 Amoxicillin/Clavulanate K 875-125 Mg Tab PO 03/19/24 21:01 1 tablet Q12HR MINH Administration Ascorbic Acid 500 mg 03/15/24 09:00 03/19/24 09:21 Ascorbic Acid 500 Mg Tablet PO 500 mg BID MINH Administration Aspirin 81 mg 03/15/24 09:00 03/19/24 09:21 Aspirin 81 Mg Enteric Tablet PO 81 mg QAM MINH Administration Atorvastatin Calcium 80 mg 03/15/24 09:00 03/19/24 09:22 Atorvastatin 40 Mg Tablet PO 80 mg DAILY MINH Administration Bupropion HCl 150 mg 03/15/24 09:00 03/19/24 09:22 Bupropion Hcl Xl (24 Hr) 150 Mg Tabcr PO 150 mg DAILY MINH Administration Buspirone HCl 15 mg 03/15/24 09:00 03/19/24 09:21 Buspirone Hcl 5 Mg Tablet PO 15 mg TID MINH Administration Clopidogrel Bisulfate 75 mg 03/15/24 09:00 03/19/24 09:21 Clopidogrel Bisulfate 75 Mg Tablet PO 75 mg DAILY MINH Administration Cyanocobalamin 500 mcg 03/15/24 09:00 03/19/24 09:22 Cyanocobalamin 500 Mcg Tablet PO 500 mcg QAM MINH Administration Diphenhydramine HCl 25 mg 03/15/24 10:06 03/19/24 01:07 Diphenhydramine Hcl Cap 25 Mg Capsule PO 25 mg Q6H PRN Administration Itching Divalproex Sodium 500 mg 03/14/24 22:15 03/19/24 09:[address] 250 Mg Tabec PO 500 mg Q12H MINH Administration Enoxaparin Sodium 40 mg 03/16/24 09:00 03/19/24 09:21 Enoxaparin 40 Mg/0.4 Ml Syringe SUB-Q 40 mg DAILY MINH Administration Escitalopram Oxalate 10 mg 03/14/24 21:00 03/18/24 22:01 Escitalopram Oxalate 10 Mg Tablet PO 10 mg HS MINH Administration Folic Acid 1 mg 03/15/24 09:00 03/19/24 09:22 Folic Acid 1 Mg Tablet PO 1 mg DAILY MINH Administration Gabapentin 100 mg 03/14/24 22:00 03/19/24 06:40 Gabapentin 100 Mg Capsule BY MOUTH 100 mg Q8HR MINH Administration Hydroxyzine HCl 25 mg 03/16/24 11:24 03/18/24 22:01 Hydroxyzine Hcl 25 Mg Tablet PO 25 mg Q6H PRN Administration Itching Levothyroxine Sodium 75 mcg 03/15/24 09:00 03/19/24 06:40 Levothyroxine Sodium 75 Mcg Tablet PO 75 mcg DAILY@0630 MINH Administration Megestrol Acetate 40 mg 03/16/24 13:00 03/19/24 09:21 Megestrol Acetate (*Chemo) 40 Mg Tablet PO 40 mg QID MINH Administration Nonform Permethrin 1 each 03/16/24 18:00 03/16/24 17:40 Cream 5% TOPICAL 04/15/24 17:59 1 each WEEKLY@1800 MINH Administration Potassium Chloride 20 meq 03/15/24 09:00 03/19/24 09:22 Potassium Chloride 20 Meq Er Tablet PO 20 meq BID MINH Administration Trazodone HCl 100 mg 03/14/24 22:25 03/19/24 01:07 Trazodone Hcl 50 Mg Tablet PO 100 mg HS PRN Administration Insomnia Triamcinolone Acetonide 1 applic 03/15/24 17:00 03/19/24 09:22 Triamcinolone Acet 0.1% Cream 80 Gm Tube TOPICAL 1 applic BID MINH Administration Radiology Results: ITS Impressions Chest X-Ray 03/14/24 19:18 Impression: 1: Left basilar infiltrates, suspicious for pneumonia. Labs Labs: Laboratory Results - last 24 hr 03/19/24 05:04 WBC 13.1 H RBC 3.63 L Hgb 11.0 L Hct 36.0 MCV 99.2 MCH 30.3 MCHC 30.6 L RDW 13.8 Plt Count 356 MPV 9.5 Sodium 139 Potassium 4.8 Chloride 103 Carbon Dioxide 30 Anion Gap 6 BUN 21 H Creatinine 0.98 Estim Creat Clear Calc 37 Estimated GFR 57 L Glucose 87 Calculated Osmolality 290 Calcium 9.3 Total Bilirubin 0.2 AST 11 L ALT 12 L Alkaline Phosphatase 76 Total Protein 6.4 Albumin 2.8 L Quality VTE Prophylaxis VTE prophylaxis: pharmacologic ordered -Patient's previous records reviewed on admission -ER notes reviewed in detail on admission -discussed all findings and current treatment plan with patient/Family/POA -Consultations reviewed for recommendations -Patient's disposition for safe discharge discussed with high risk case manager Dictation performed by [employer] direct speech recognition software, therefore conciliation court judge variants and typographical errors may occur. Hospitalist MIPS Advance Care Plan I have confirmed that the patient's Advanced Care Plan is present, code status is documented, or surrogate decision maker is listed in patient medical record.: Yes Medication Reconciliation I have utilized all available resources to obtain, update and review the patients current medications (includes all prescriptions, OTC, herbals, cannabis, and nutritional supplements).: Yes The patient is not eligible for med reconciliation; the patient is in a emergent medical situation where delaying treatment would jeopardize the patients health.: No
[2024-03-19 16:35] VITALS: BP 135/53; PULSE 76; RESP 16; TEMP 36.5; O2SAT 98
[2024-03-19] MEDS: hydrOXYzine HCL 25 MG TABLET PO (21:49)
[2024-03-19] MEDS: ESCITALOPRAM OXALATE 10 MG TABLET PO (21:49)
[2024-03-19 23:26] VITALS: BP 130/64; PULSE 72; RESP 16; TEMP 36.4; O2SAT 98
[2024-03-20] MEDS: GABAPENTIN 100 MG CAPSULE BY MOUTH ×3 (05:04→20:59)
[2024-03-20 05:18] LABS: Hematocrit 38.1 % (35.0-42.0); Hemoglobin 11.7 g/dL (11.7-13.8); Mean Corpuscular HGB Conc 30.7 g/dL (32-36); Mean Corpuscular Hemoglobin 30.5 pg (27.0-31.0); Mean Corpuscular Volume 99.5 fL (78.0-102.0); Mean Platelet Volume 9.6 fl (9.2-11.8); Platelet Count Result 371 K/mm3 (150-420); Red Blood Count 3.83 M/mm3 (4.20-5.40); Red Cell Distribution Width 14.1 % (11.6-14.4); White Blood Count 14.9 K/mm3 (4.8-10.8)
[2024-03-20] MEDS: LEVOTHYROXINE SODIUM 75 MCG TABLET PO (05:30)
[2024-03-20 05:35] LABS: Alanine Aminotransferase 17 U/L (14-59); Albumin Level 2.8 g/dL (3.4-5.0); Alkaline Phosphatase 75 U/L (46-116); Anion Gap 3 mmol/L (4-12); Aspartate Amino Transferase 11 U/L (15-37); Bilirubin,Total 0.2 mg/dL (0.00-1.00); Blood Urea Nitrogen 19 mg/dL (7-18); Calcium 9.1 mg/dL (8.5-10.1); Carbon Dioxide 34 mmol/L (21-32); Chloride 101 mmol/L (98-108); Estimated CRCL calculation 39 ml/min; Estimated Glomerular Filt Rate 60; Glucose 86 mg/dL (70-99); Osmolality Calculated 287 mOsm/kg (285-295); Potassium 5.2 mmol/L (3.5-5.1); Sodium 138 mmol/L (136-145); Total Protein 6.5 g/dL (6.4-8.2)
[2024-03-20 08:00] VITALS: BP 165/70; PULSE 91; RESP 18; TEMP 36.3; O2SAT 97
--- NOTE | 2024-03-20 08:51 | P.PNIM_ITS ---
Progress Note: A&P Assessment and Plan (1) Pneumonia: Qualifiers: Laterality: left Lung location: lower lobe of lung Pneumonia type: due to unspecified organism Qualified Code(s): J18.9 - Pneumonia, unspecified organism Code(s): J18.9 - Pneumonia, unspecified organism Status: Resolved Assessment and Plan: CXR left basilar infiltrates suspicious for pneumonia, normal WBC, afebrile, on room air but does have generalized weakness that has worsened over the last week * given Rocephin and azithromycin in the emergency department * transitioned to oral Augmentin * oxygen p.r.n. * incentive spirometer 03/16 * Continue Augmentin and Azithromycin * Continue IS while awake 03/17 * Continue current treatment plan 03/18 * No change RESOLVED (2) Rash: Code(s): R21 - Rash and other nonspecific skin eruption Status: Acute Assessment and Plan: * systemic rash upper and lower extremities chest and back * treat with prednisone added Benadryl for itching 03/16 * Rash all over body, BUE, BLE and inbetween fingers and toes * Could be a form of eczema, however can not rule out scabies. Left message for daughter to call back. * Continue prednisone * Will order permethrin 5% topical cream x1 now. * Start Atarax for itching * Will isolate for possible scabies 03/17 * Rash showing some improvement with permethrin 5% cream * Continue atarax for itching 03/18 * rash improving but still with mild itch * Stopped prednisone * can continue with cream * Bed bugs vs scabies vs systemic dermatitis 03/20 * No change to current treatment plan (3) Generalized weakness: Code(s): R53.1 - Weakness Status: Acute Assessment and Plan: * likely secondary to pneumonia and failure to thrive * PT/OT for evaluation * family requesting SNF 03/16 * Continue PT and OT * Case management following for outpatient rehab needs 03/17 * Continue PT and OT * Will require placement 03/20 * No change * Case coordination working on placement (4) Moderate protein-calorie malnutrition: Code(s): E44.0 - Moderate protein-calorie malnutrition Status: Chronic Assessment and Plan: * secondary to failure to thrive * added protein shakes to each meal * regular diet * Resumed Megace 03/16 * encourage po intake * No change to current treatment plan 03/17 * No change (5) Adult failure to thrive: Code(s): R62.7 - Adult failure to thrive Status: Acute Assessment and Plan: patient has been worsening for the last year patient's passed around a year ago suffering from depression, bipolar disorder and anxiety * skilled nursing placement * see above 3 03/16 * Continue PT and OT * Case management working on placement 03/17 * No change (6) Depression: Code(s): F32.9 - Major depressive disorder, single episode, unspecified Status: Chronic Assessment and Plan: * Resumed home medications BuSpar and Wellbutrin, citalopram 03/16 * No change (7) Anxiety: Code(s): F41.9 - Anxiety disorder, unspecified Status: Chronic Assessment and Plan: * Resumed home medications BuSpar and Wellbutrin 03/16 * No change (8) Bipolar disorder: Code(s): F31.9 - Bipolar disorder, unspecified Status: Chronic Assessment and Plan: * Resumed home medications divalproex 03/16 * No change (9) Hypothyroidism: Code(s): E03.9 - Hypothyroidism, unspecified Status: Chronic Assessment and Plan: * Resumed Levothyroxine 03/16 * Will check TSH level * Continue Synthroid 03/17 * TSH 0.89 (10) Hypotension: Code(s): I95.9 - Hypotension, unspecified Status: Acute Assessment and Plan: * resume patient's midodrine * monitor BP per unit protocol 03/16 * No change Time Spent With Patient Time with patient: 25 - 35 minutes Subjective Date/time seen: 03/20/24 08:51 Interval history: Interval history: (copy forward from chart) Patient is a 68-year-old female who was sent over to the emergency department by her primary care physician due to increased generalized weakness which has gotten increasingly worse over the last week. Patient is a poor historian some information was gathered via the medical chart as stated from emergency department family has requested patient be placed in long care facility unable to care for self anymore. patient with past medical history of bipolar disorder, CHF, failure to thrive, and depression. initial findings in the emergency department did show a chest x-ray with right lower lobe infiltrate sug gestive of pneumonia. Patient with normal WBC, afebrile no respiratory distress. Patient denied CP, SOB, Cough, dizziness, nausea, and vomiting overall states she just did not feel well and has had worsening weakness. upon assessment patient was found to also a systemic rash lower and upper extremities as well as her trunk back as reported from medical chart when she saw her primary patient's daughter reported this began about a month ago with no new medications or changes. patient was admitted to the medical unit for pneumonia, generalized weakness, and failure to thrive. labs were reviewed and unremarkable vital stable. Subjective: Patient denies any new complaints today. Labs reviewed. Review of Systems Review of Systems: All systems reviewed & are unremarkable except as noted in HPI and below Exam Narrative: General: failure to thrive, very malnourished Cardiac: Normal S1 and S2. No murmur, gallops or friction rubs, peripheral pulses intact. Respiratory: Lungs clear to auscultation, no adventitious lung sounds, currently on room air Gastrointestinal: soft, non-distended, non-tender, normoactive bowel sounds. : voiding without difficulty. Extremities: moves all extremities well, no edema Skin: rash noted all over torso, BUE, BLE with scabbed and bleeding areas from scratching--improved Neuro: Alert Objective Data Vital Signs Vital Signs: Vital Signs - 24 hr 03/19/24 16:35 03/19/24 23:26 Temperature 97.7 F 97.5 F L Pulse Rate 76 72 Respiratory Rate 16 16 Blood Pressure 135/53 L 130/64 Pulse Oximetry 98 98 Oxygen Delivery Room Air Room Air Intake/Output Intake/Output: Intake & Output 03/17/24 03/18/24 03/19/24 03/20/24 23:59 23:59 23:59 23:59 Intake Total 1410 2392 2840 680 Output Total 100 Balance 1410 2392 2740 680 Meds/Results Medications: Active Medications Generic Name Dose Route Start Last Admin Trade Name Freq PRN Reason Stop Dose Admin Acetaminophen 650 mg 03/14/24 20:34 03/19/24 01:07 Acetaminophen 325 Mg Tablet PO 650 mg Q4H PRN Administration Mild Pain (1-3) or Fever Al Hydrox/Mg Hydrox/Simethicone 30 ml 03/14/24 20:34 Mag Hydrox/Al Hydrox/Simeth 30 Ml Udc PO QID PRN Dyspepsia Ascorbic Acid 500 mg 03/15/24 09:00 03/19/24 17:25 Ascorbic Acid 500 Mg Tablet PO 500 mg BID MINH Administration Aspirin 81 mg 03/15/24 09:00 03/19/24 09:21 Aspirin 81 Mg Enteric Tablet PO 81 mg QAM MINH Administration Atorvastatin Calcium 80 mg 03/15/24 09:00 03/19/24 09:22 Atorvastatin 40 Mg Tablet PO 80 mg DAILY MINH Administration Bupropion HCl 150 mg 03/15/24 09:00 03/19/24 09:22 Bupropion Hcl Xl (24 Hr) 150 Mg Tabcr PO 150 mg DAILY MINH Administration Buspirone HCl 15 mg 03/15/24 09:00 03/19/24 17:25 Buspirone Hcl 5 Mg Tablet PO 15 mg TID MINH Administration Clopidogrel Bisulfate 75 mg 03/15/24 09:00 03/19/24 09:21 Clopidogrel Bisulfate 75 Mg Tablet PO 75 mg DAILY MINH Administration Cyanocobalamin 500 mcg 03/15/24 09:00 03/19/24 09:22 Cyanocobalamin 500 Mcg Tablet PO 500 mcg QAM MINH Administration Diphenhydramine HCl 25 mg 03/15/24 10:06 03/19/24 01:07 Diphenhydramine Hcl Cap 25 Mg Capsule PO 25 mg Q6H PRN Administration Itching Divalproex Sodium 500 mg 03/14/24 22:15 03/19/24 21:[address] 250 Mg Tabec PO 500 mg Q12H MINH Administration Enoxaparin Sodium 40 mg 03/16/24 09:00 03/19/24 09:21 Enoxaparin 40 Mg/0.4 Ml Syringe SUB-Q 40 mg DAILY MINH Administration Escitalopram Oxalate 10 mg 03/14/24 21:00 03/19/24 21:49 Escitalopram Oxalate 10 Mg Tablet PO 10 mg HS MINH Administration Folic Acid 1 mg 03/15/24 09:00 03/19/24 09:22 Folic Acid 1 Mg Tablet PO 1 mg DAILY MINH Administration Gabapentin 100 mg 03/14/24 22:00 03/20/24 05:04 Gabapentin 100 Mg Capsule BY MOUTH 100 mg Q8HR MINH Administration Hydroxyzine HCl 25 mg 03/16/24 11:24 03/19/24 21:49 Hydroxyzine Hcl 25 Mg Tablet PO 25 mg Q6H PRN Administration Itching Levothyroxine Sodium 75 mcg 03/15/24 09:00 03/20/24 05:30 Levothyroxine Sodium 75 Mcg Tablet PO 75 mcg DAILY@0630 MINH Administration Megestrol Acetate 40 mg 03/16/24 13:00 03/19/24 21:49 Megestrol Acetate (*Chemo) 40 Mg Tablet PO 40 mg QID MINH Administration Nonform Permethrin 1 each 03/16/24 18:00 03/16/24 17:40 Cream 5% TOPICAL 04/15/24 17:59 1 each WEEKLY@1800 MINH Administration Potassium Chloride 20 meq 03/15/24 09:00 03/19/24 17:25 Potassium Chloride 20 Meq Er Tablet PO 20 meq BID MINH Administration Trazodone HCl 100 mg 03/14/24 22:25 03/19/24 21:49 Trazodone Hcl 50 Mg Tablet PO 100 mg HS PRN Administration Insomnia Triamcinolone Acetonide 1 applic 03/15/24 17:00 03/19/24 17:26 Triamcinolone Acet 0.1% Cream 80 Gm Tube TOPICAL 1 applic BID MINH Administration Radiology Results: ITS Impressions Chest X-Ray 03/14/24 19:18 Impression: 1: Left basilar infiltrates, suspicious for pneumonia. Labs Labs: Laboratory Results - last 24 hr 03/20/24 05:05 WBC 14.9 H RBC 3.83 L Hgb 11.7 Hct 38.1 MCV 99.5 MCH 30.5 MCHC 30.7 L RDW 14.1 Plt Count 371 MPV 9.6 Sodium 138 Potassium 5.2 H Chloride 101 Carbon Dioxide 34 H Anion Gap 3 L BUN 19 H Creatinine 0.93 Estim Creat Clear Calc 39 Estimated GFR 60 Glucose 86 Calculated Osmolality 287 Calcium 9.1 Total Bilirubin 0.2 AST 11 L ALT 17 Alkaline Phosphatase 75 Total Protein 6.5 Albumin 2.8 L Quality VTE Prophylaxis VTE prophylaxis: pharmacologic ordered
[2024-03-20] MEDS: ENOXAPARIN 40 MG/0.4 ML SYRINGE SUB-Q (09:23)
[2024-03-20] MEDS: FOLIC ACID 1 MG TABLET PO (09:23)
[2024-03-20] MEDS: buPROPion HCL XL (24 HR) 150 MG TABCR PO (09:23)
[2024-03-20] MEDS: MEGESTROL ACETATE (*CHEMO) 40 MG TABLET PO ×4 (09:23→20:59)
[2024-03-20] MEDS: ASCORBIC ACID 500 MG TABLET PO ×2 (09:24→16:56)
[2024-03-20] MEDS: CYANOCOBALAMIN 500 MCG TABLET PO (09:26)
[2024-03-20] MEDS: ASPIRIN 81 MG ENTERIC TABLET PO (09:26)
[2024-03-20] MEDS: ATORVASTATIN 40 MG TABLET 80 MG PO (09:26)
[2024-03-20] MEDS: busPIRone HCL 5 MG TABLET 15 MG PO ×3 (09:26→16:56)
[2024-03-20] MEDS: CLOPIDOGREL BISULFATE 75 MG TABLET PO (09:26)
[2024-03-20] MEDS: TRIAMCINOLONE ACET 0.1% CREAM 80 GM TUBE 1 APPLIC TOPICAL ×2 (09:27→16:57)
[2024-03-20] MEDS: DIVALPROEX SODIUM DR 250 MG TABEC 500 MG PO ×2 (09:27→20:59)
--- NOTE | 2024-03-20 09:37 | PC.NURSE ---
Potassium not given related to potassium level 5.1. PARTNER made aware.
[2024-03-20] MEDS: hydrOXYzine HCL 25 MG TABLET PO ×2 (10:51→20:59)
--- NOTE | 2024-03-20 14:02 | PC.NURSE ---
Resident continues to itch at skin. Multiple areas beginning to bleed Triamcinolone applied per order. Atarax given @ 1050 with minimal relief. applies tubular stockinets to bilateral arm to deter from picking and causing skin to bleed. She now re4st in bed with eyes closed, respirations even and unlabored.
[2024-03-20] MEDS: diphenhydrAMINE HCl CAP 25 MG CAPSULE PO ×2 (14:16→20:59)
[2024-03-20 16:00] VITALS: BP 100/62; PULSE 92; RESP 18; TEMP 36.6; O2SAT 97
[2024-03-20] MEDS: ESCITALOPRAM OXALATE 10 MG TABLET PO (20:59)
[2024-03-21] VITALS: BP 106/55; PULSE 80; RESP 16; TEMP 36.4; O2SAT 96
--- OUTSIDE RECORDS SUMMARY | 2024-03-21 04:16 | XMS_ITS | Clinical Summary ---
Author Organization [facility] Address [address] [place] [id number] Phone Care Team Providers Care Housekeeper Name Role Phone Louis Hughes DO Primary Care Provider [phone] Allergies No known active allergies Medications acetaminophen (TYLENOL) 325 mg tablet Take 650 mg by mouth every 6 hours as needed for Pain. Active aspirin (CLAUDIA CHEWABLE) 81 mg Tablet, Chewable Take 81 mg by mouth daily. Active atorvastatin (LIPITOR) 40 mg tablet Take 80 mg by mouth daily at bedtime. Active capsaicin (ZOSTRIX) 0.025 % Cream Apply to affected area every 8 hours as needed for Pain. Active cyanocobalamin 1,000 mcg Tablet Take 2,500 mcg by mouth daily. Active divalproex (DEPAKOTE) 500 mg delayed release tablet Take 500 mg by mouth daily. Active divalproex (DEPAKOTE) 500 mg delayed release tablet Take 1,000 mg by mouth daily at bedtime. Active escitalopram oxalate (LEXAPRO) 10 mg tablet Take 10 mg by mouth daily at bedtime. Active folic acid (FOLVITE) 0.8 mg Tablet Take 800 mcg by mouth daily. Active gabapentin (NEURONTIN) 100 mg capsule Take 100 mg by mouth 3 times daily. Active levothyroxine 75 mcg tablet Take 75 mcg by mouth daily in the morning. Active clopidogreL (PLAVIX) 75 mg Tablet Take 75 mg by mouth daily. Active potassium chloride (KLOR-CON M20) 20 mEq Extended Release tablet Take 40 mEq by mouth daily. Active Sodium Chloride 1,000 mg Tablet, Soluble Take 1 Tablet (1,000 mg) by mouth 2 times daily with meals. 10/24/2023 Active traZODone (DESYREL) 50 mg tablet Take 1 Tablet (50 mg) by mouth daily at bedtime. 10/24/2023 Active ergocalciferol (VITAMIN D2) 50,000 unit capsule Take 1 Capsule (50,000 Units) by mouth every 7 days. 10/30/2023 Active polyethylene glycol (MIRALAX) 17 gram Powder in Packet Take 1 Packet (17 Grams) by mouth 2 times daily as needed for Constipation. 10/24/2023 Active Active Problems Problem Noted Date Diagnosed Date Generalized muscle weakness 10/23/2023 Hypovitaminosis D 10/18/2023 Primary hypothyroidism 10/18/2023 Hypoglycemia 10/15/2023 Acute respiratory failure with hypoxia and hyper capnia 10/10/2023 Shock circulatory 10/10/2023 Fall at home, initial encounter 10/09/2023 Protein-calorie malnutrition, severe 10/09/2023 Physical debility 10/09/2023 Fall 10/08/2023 Closed stable burst fracture of third lumbar vertebra with routine healing 10/08/2023 Mixed hyperlipidemia 10/08/2023 Peripheral vascular disease 10/08/2023 MDD (major depressive disorder) 10/08/2023 ANY (generalized anxiety disorder) 10/08/2023 Bipolar disorder, unspecified 10/08/2023 Insomnia 10/08/2023 Dementia 10/08/2023 Neuropathy 10/08/2023 COVID-19 virus detected 10/08/2023 Closed traumatic compression fracture of lumbar vertebra 10/08/2023 Encounters Date Type Department Care Team Description 02/27/2024 External Device Data [facility] ABSTRACTION Provider, Abstract from Last 3 Months Social History Tobacco Use Types Packs/Day Years Used Date Smoking Tobacco: Never Assessed Feeling Safe Answer Date Recorded Are you in a relationship wi th someone who hurts you emotionally and/or physically? No 10/08/2023 Food Insecurity Answer Date Recorded Social/Environmental Concerns No concerns Transportation Needs Answer Date Record ed Social/Environmental Concerns No concerns Housing Stability Answer Date Recorded Social/Environmental Concerns No concerns Utility Needs Answer Date Recorded Social/Environmental Concerns No concerns Comments Unknown Sex and Gender Information Value Date Recorded Sex Assigned at Not on file Legal Sex Female 4:10 PM CDT Gender Identity Not on file Sexual Orientation Not on file Last Filed Vital Signs Vital Sign Reading Time Taken Comments Blood Pressure 142/67 10/24/2023 12:45 PM CDT Pulse 78 10/24/2023 12:45 PM CDT Temperature 36.7 ??C (98.1 ??F) 10/24/2023 12:45 PM C DT Respiratory Rate 16 10/24/2023 12:45 PM CDT Oxygen Saturation 94% 10/24/2023 12:45 PM CDT Inhaled Oxygen Concentration - - Weight 47.3 kg (104 lb 3.2 oz) 10/20/2023 4:06 A M CDT Height 170.2 cm (5' 7 ) 10/10/2023 11:00 AM CDT Body Mass Index 16.32 10/10/2023 11:00 AM CDT Plan of Treatment Health Maintenance Due Date Last Done Comments DTAP/TDAP/TD VACCINES (1 - Tdap) 08/22/1975 BREAST CANCER SCREENING 1996 COLORECTAL SCREENING 2001 Colorectal Cancer Screening 2001 FIT-DNA Q 3 years 2001 FIT/FOBT Q 1 year 2001 Flex Sig/CT Colonography Q 5 years 2001 ZOSTER VACCINE (1 of 2) 2006 RSV VACCINE (60+ or ) (1 - Risk 60-74 years 1-dose series) 2016 OSTEOPOROSIS SCREENING 2021 PNEUMOCOCCAL VACCINE 65+ YEARS (1 of 1 - PCV) 08/22/19 INFLUENZA VACCINE (#1) 2023 Insurance [facility] [id number] [facility] [id number] [facility] Advance Directives For more information, please contact: [phone] * Full Code (Latest Code Status on File) Date Activated Date Inactivated Comments 10/10/2023 6:02 AM 10/24/2023 4:34 PM * NO CPR (In Event of Cardiopulmonary Arrest) Date Activated Date Inactivated Comments 10/08/2023 8:06 AM 10/10/2023 6:02 AM Question Answer Comments Mechanical Ventilation (for respiratory distress) - Invasive (i.e. intubation): No Mechanical Ventilation (for respiratory distress) - Non-Invasive (i.e. BiPAP, CPAP): Yes * Full Code Date Activated Date Inactivated Comments 10/07/2023 7:32 PM 10/08/2023 8:06 AM Care Teams Housekeeper Relationship Specialty Start Date End Date Louis Hughes DO [address] [place] [id number] PCP - General Family Practice 10/08/23
[2024-03-21 05:24] LABS: Hematocrit 33.3 % (35.0-42.0); Hemoglobin 10.4 g/dL (11.7-13.8); Mean Corpuscular HGB Conc 31.2 g/dL (32-36); Mean Corpuscular Hemoglobin 31.3 pg (27.0-31.0); Mean Corpuscular Volume 100.3 fL (78.0-102.0); Mean Platelet Volume 9.6 fl (9.2-11.8); Platelet Count Result 339 K/mm3 (150-420); Red Blood Count 3.32 M/mm3 (4.20-5.40); Red Cell Distribution Width 14.2 % (11.6-14.4); White Blood Count 15.7 K/mm3 (4.8-10.8)
[2024-03-21] MEDS: GABAPENTIN 100 MG CAPSULE BY MOUTH ×3 (05:31→21:51)
[2024-03-21] MEDS: LEVOTHYROXINE SODIUM 75 MCG TABLET PO (05:31)
[2024-03-21 05:42] LABS: Alanine Aminotransferase 15 U/L (14-59); Albumin Level 2.5 g/dL (3.4-5.0); Alkaline Phosphatase 70 U/L (46-116); Anion Gap 2 mmol/L (4-12); Aspartate Amino Transferase 13 U/L (15-37); Bilirubin,Total 0.2 mg/dL (0.00-1.00); Blood Urea Nitrogen 22 mg/dL (7-18); Calcium 8.7 mg/dL (8.5-10.1); Carbon Dioxide 34 mmol/L (21-32); Chloride 101 mmol/L (98-108); Estimated CRCL calculation 47 ml/min; Estimated Glomerular Filt Rate > 60; Glucose 86 mg/dL (70-99); Osmolality Calculated 286 mOsm/kg (285-295); Potassium 4.8 mmol/L (3.5-5.1); Sodium 137 mmol/L (136-145); Total Protein 5.8 g/dL (6.4-8.2)
[2024-03-21 08:00] VITALS: BP 124/64; PULSE 74; RESP 18; TEMP 36.1; O2SAT 96
[2024-03-21] MEDS: ENOXAPARIN 40 MG/0.4 ML SYRINGE SUB-Q (08:45)
[2024-03-21] MEDS: TRIAMCINOLONE ACET 0.1% CREAM 80 GM TUBE 1 APPLIC TOPICAL ×2 (08:45→17:16)
[2024-03-21] MEDS: ASCORBIC ACID 500 MG TABLET PO ×2 (08:45→17:15)
[2024-03-21] MEDS: CLOPIDOGREL BISULFATE 75 MG TABLET PO (08:45)
[2024-03-21] MEDS: busPIRone HCL 5 MG TABLET 15 MG PO ×3 (08:45→17:15)
[2024-03-21] MEDS: FOLIC ACID 1 MG TABLET PO (08:45)
[2024-03-21] MEDS: ASPIRIN 81 MG ENTERIC TABLET PO (08:45)
[2024-03-21] MEDS: hydrOXYzine HCL 25 MG TABLET PO ×2 (08:45→17:15)
[2024-03-21] MEDS: buPROPion HCL XL (24 HR) 150 MG TABCR PO (08:45)
[2024-03-21] MEDS: MEGESTROL ACETATE (*CHEMO) 40 MG TABLET PO ×4 (08:46→20:20)
[2024-03-21] MEDS: ATORVASTATIN 40 MG TABLET 80 MG PO (08:46)
[2024-03-21] MEDS: CYANOCOBALAMIN 500 MCG TABLET PO (08:46)
[2024-03-21] MEDS: DIVALPROEX SODIUM DR 250 MG TABEC 500 MG PO ×2 (08:46→21:51)
--- NOTE | 2024-03-21 12:57 | P.PNIM_ITS ---
Progress Note: A&P Assessment and Plan (1) Pneumonia: Qualifiers: Laterality: left Lung location: lower lobe of lung Pneumonia type: due to unspecified organism Qualified Code(s): J18.9 - Pneumonia, unspecified organism Code(s): J18.9 - Pneumonia, unspecified organism Status: Resolved Assessment and Plan: CXR left basilar infiltrates suspicious for pneumonia, normal WBC, afebrile, on room air but does have generalized weakness that has worsened over the last week * given Rocephin and azithromycin in the emergency department * transitioned to oral Augmentin * oxygen p.r.n. * incentive spirometer 03/16 * Continue Augmentin and Azithromycin * Continue IS while awake 03/17 * Continue current treatment plan 03/18 * No change RESOLVED (2) Rash: Code(s): R21 - Rash and other nonspecific skin eruption Status: Acute Assessment and Plan: * systemic rash upper and lower extremities chest and back * treat with prednisone added Benadryl for itching 03/16 * Rash all over body, BUE, BLE and inbetween fingers and toes * Could be a form of eczema, however can not rule out scabies. Left message for daughter to call back. * Continue prednisone * Will order permethrin 5% topical cream x1 now. * Start Atarax for itching * Will isolate for possible scabies 03/17 * Rash showing some improvement with permethrin 5% cream * Continue atarax for itching 03/18 * rash improving but still with mild itch * Stopped prednisone * can continue with cream * Bed bugs vs scabies vs systemic dermatitis 03/20 * No change to current treatment plan (3) Generalized weakness: Code(s): R53.1 - Weakness Status: Acute Assessment and Plan: * likely secondary to pneumonia and failure to thrive * PT/OT for evaluation * family requesting SNF 03/16 * Continue PT and OT * Case management following for outpatient rehab needs 03/17 * Continue PT and OT * Will require placement 03/20 * No change * Case coordination working on placement 03/21 * Department of family services contacted as we are still unsuccessful in getting in touch with the daughter. Patient is unable to make decisions for herself. Case management following. * continue PT and OT L (4) Moderate protein-calorie malnutrition: Code(s): E44.0 - Moderate protein-calorie malnutrition Status: Chronic Assessment and Plan: * secondary to failure to thrive * added protein shakes to each meal * regular diet * Resumed Megace 03/16 * encourage po intake * No change to current treatment plan 03/17 * No change (5) Adult failure to thrive: Code(s): R62.7 - Adult failure to thrive Status: Acute Assessment and Plan: patient has been worsening for the last year patient's passed around a year ago suffering from depression, bipolar disorder and anxiety * terminal gauger placement * see above 3 03/16 * Continue PT and OT * Case management working on placement 03/17 * No change (6) Depression: Code(s): F32.9 - Major depressive disorder, single episode, unspecified Status: Chronic Assessment and Plan: * Resumed home medications BuSpar and Wellbutrin, citalopram 03/16 * No change (7) Anxiety: Code(s): F41.9 - Anxiety disorder, unspecified Status: Chronic Assessment and Plan: * Resumed home medications BuSpar and Wellbutrin 03/16 * No change (8) Bipolar disorder: Code(s): F31.9 - Bipolar disorder, unspecified Status: Chronic Assessment and Plan: * Resumed home medications divalproex 03/16 * No change (9) Hypothyroidism: Code(s): E03.9 - Hypothyroidism, unspecified Status: Chronic Assessment and Plan: * Resumed Levothyroxine 03/16 * Will check TSH level * Continue Synthroid 03/17 * TSH 0.89 (10) Hypotension: Code(s): I95.9 - Hypotension, unspecified Status: Acute Assessment and Plan: * resume patient's midodrine * monitor BP per unit protocol 03/16 * No change Time Spent With Patient Time with patient: 15 - 25 minutes Subjective Date/time seen: 03/21/24 12:57 Interval history: Interval history: (copy forward from chart) Patient is a 68-year-old female who was sent over to the emergency department by her primary care physician due to increased generalized weakness which has gotten increasingly worse over the last week. Patient is a poor historian some information was gathered via the medical chart as stated from emergency department family has requested patient be placed in long care facility unable to care for self anymore. patient with past medical history of bipolar disorder, CHF, failure to thrive, and depression. initial findings in the emergency department did show a chest x-ray with right lower lobe infiltrate suggestive of pneumonia. Patient with normal WBC, afebrile no respiratory distress. Patient denied CP, SOB, Cough, dizziness, nausea, and vomiting overall states she just did not feel well and has had worsening weakness. upon assessment patient was found to also a systemic rash lower and upper extremities as well as her trunk back as reported from medical chart when she saw her primary patient's daughter reported this began about a month ago with no new medications or changes. patient was admitted to the medical unit for pneumonia, generalized weakness, and failure to thrive. labs were reviewed and unremarkable vital stable. Subjective: Patient denies any new complaints today. Labs reviewed. Review of Systems Review of Systems: All systems reviewed & are unremarkable except as noted in HPI and below Exam Narrative: General: failure to thrive, very malnourished Cardiac: Normal S1 and S2. No murmur, gallops or friction rubs, peripheral pulses intact. Respiratory: Lungs clear to auscultation, no adventitious lung sounds, currently on room air Gastrointestinal: soft, non-distended, non-tender, normoactive bowel sounds. : voiding without difficulty. Extremities: moves all extremities well, no edema Skin: rash noted all over torso, BUE, BLE with scabbed and bleeding areas from scratching--improved Neuro: Alert Objective Data Vital Signs Vital Signs: Vital Signs - 24 hr 03/20/24 16:00 03/21/24 00:00 03/21/24 08:00 Temperature 97.9 F 97.5 F L 97 F L Pulse Rate 92 80 74 Respiratory Rate 18 16 18 Blood Pressure 100/62 106/55 L 124/64 Pulse Oximetry 97 96 96 Oxygen Delivery Room Air Room Air Room Air Intake/Output Intake/Output: Intake & Output 03/18/24 03/19/24 03/20/24 03/21/24 23:59 23:59 23:59 23:59 Intake Total 2392 2840 2090 905 Output Total 100 Balance 2392 2740 2090 905 Meds/Results Medications: Active Medications Generic Name Dose Route Start Last Admin Trade Name Freq PRN Reason Stop Dose Admin Acetaminophen 650 mg 03/14/24 20:34 03/19/24 01:07 Acetaminophen 325 Mg Tablet PO 650 mg Q4H PRN Administration Mild Pain (1-3) or Fever Al Hydrox/Mg Hydrox/Simethicone 30 ml 03/14/24 20:34 Mag Hydrox/Al Hydrox/Simeth 30 Ml Udc PO QID PRN Dyspepsia Ascorbic Acid 500 mg 03/15/24 09:00 03/21/24 08:45 Ascorbic Acid 500 Mg Tablet PO 500 mg BID MINH Administration Aspirin 81 mg 03/15/24 09:00 03/21/24 08:45 Aspirin 81 Mg Enteric Tablet PO 81 mg QAM MINH Administration Atorvastatin Calcium 80 mg 03/15/24 09:00 03/21/24 08:46 Atorvastatin 40 Mg Tablet PO 80 mg DAILY MINH Administration Bupropion HCl 150 mg 03/15/24 09:00 03/21/24 08:45 Bupropion Hcl Xl (24 Hr) 150 Mg Tabcr PO 150 mg DAILY MINH Administration Buspirone HCl 15 mg 03/15/24 09:00 03/21/24 12:34 Buspirone Hcl 5 Mg Tablet PO 15 mg TID MINH Administration Clopidogrel Bisulfate 75 mg 03/15/24 09:00 03/21/24 08:45 Clopidogrel Bisulfate 75 Mg Tablet PO 75 mg DAILY MINH Administration Cyanocobalamin 500 mcg 03/15/24 09:00 03/21/24 08:46 Cyanocobalamin 500 Mcg Tablet PO 500 mcg QAM MINH Administration Diphenhydramine HCl 25 mg 03/15/24 10:06 03/20/24 20:59 Diphenhydramine Hcl Cap 25 Mg Capsule PO 25 mg Q6H PRN Administration Itching Divalproex Sodium 500 mg 03/14/24 22:15 03/21/24 08:[address] 250 Mg Tabec PO 500 mg Q12H MINH Administration Enoxaparin Sodium 40 mg 03/16/24 09:00 03/21/24 08:45 Enoxaparin 40 Mg/0.4 Ml Syringe SUB-Q 40 mg DAILY MINH Administration Escitalopram Oxalate 10 mg 03/14/24 21:00 03/20/24 20:59 Escitalopram Oxalate 10 Mg Tablet PO 10 mg HS [facility] Administration Folic Acid 1 mg 03/15/24 09:00 03/21/24 08:45 Folic Acid 1 Mg Tablet PO 1 mg DAILY MINH Administration Gabapentin 100 mg 03/14/24 22:00 03/21/24 12:35 Gabapentin 100 Mg Capsule BY MOUTH 100 mg Q8HR MINH Administration Hydroxyzine HCl 25 mg 03/16/24 11:24 03/21/24 08:45 Hydroxyzine Hcl 25 Mg Tablet PO 25 mg Q6H PRN Administration Itching Levothyroxine Sodium 75 mcg 03/15/24 09:00 03/21/24 05:31 Levothyroxine Sodium 75 Mcg Tablet PO 75 mcg DAILY@0630 MINH Administration Megestrol Acetate 40 mg 03/16/24 13:00 03/21/24 12:35 Megestrol Acetate (*Chemo) 40 Mg Tablet PO 40 mg QID MINH Administration Nonform Permethrin 1 each 03/16/24 18:00 03/16/24 17:40 Cream 5% TOPICAL 04/15/24 17:59 1 each WEEKLY@1800 MINH Administration Trazodone HCl 100 mg 03/14/24 22:25 03/19/24 21:49 Trazodone Hcl 50 Mg Tablet PO 100 mg HS PRN Administration Insomnia Triamcinolone Acetonide 1 applic 03/15/24 17:00 03/21/24 08:45 Triamcinolone Acet 0.1% Cream 80 Gm Tube TOPICAL 1 applic BID MINH Administration Radiology Results: ITS Impressions Chest X-Ray 03/14/24 19:18 Impression: 1: Left basilar infiltrates, suspicious for pneumonia. Labs Labs: Laboratory Results - last 24 hr 03/21/24 05:07 WBC 15.7 H RBC 3.32 L Hgb 10.4 L Hct 33.3 L MCV 100.3 MCH 31.3 H MCHC 31.2 L RDW 14.2 Plt Count 339 MPV 9.6 Sodium 137 Potassium 4.8 Chloride 101 Carbon Dioxide 34 H Anion Gap 2 L BUN 22 H Creatinine 0.76 Estim Creat Clear Calc 47 Estimated GFR > 60 Glucose 86 Calculated Osmolality 286 Calcium 8.7 Total Bilirubin 0.2 AST 13 L ALT 15 Alkaline Phosphatase 70 Total Protein 5.8 L Albumin 2.5 L Quality VTE Prophylaxis VTE prophylaxis: pharmacologic ordered
[2024-03-21 16:00] VITALS: BP 142/72; PULSE 84; RESP 18; TEMP 36.1; O2SAT 95
[2024-03-21 20:00] VITALS: PULSE 84; RESP 18; O2SAT 95
[2024-03-21] MEDS: traZODone HCL 50 MG TABLET 100 MG PO (20:19)
[2024-03-21] MEDS: diphenhydrAMINE HCl CAP 25 MG CAPSULE PO (20:20)
[2024-03-21] MEDS: ESCITALOPRAM OXALATE 10 MG TABLET PO (20:20)
[2024-03-21] MEDS: ACETAMINOPHEN 325 MG TABLET 650 MG PO (20:20)
[2024-03-22] VITALS: BP 117/71; PULSE 91; RESP 17; TEMP 36.4; O2SAT 97
[2024-03-22 05:33] LABS: Hematocrit 31.3 % (35.0-42.0); Hemoglobin 9.7 g/dL (11.7-13.8); Mean Corpuscular Hemoglobin 30.8 pg (27.0-31.0); Mean Corpuscular Volume 99.4 fL (78.0-102.0); Platelet Count Result 315 K/mm3 (150-420); Red Blood Count 3.15 M/mm3 (4.20-5.40); Red Cell Distribution Width 14.4 % (11.6-14.4); White Blood Count 18.1 K/mm3 (4.8-10.8)
[2024-03-22 05:49] LABS: Alanine Aminotransferase 11 U/L (14-59); Albumin Level 2.3 g/dL (3.4-5.0); Alkaline Phosphatase 66 U/L (46-116); Anion Gap 3 mmol/L (4-12); Aspartate Amino Transferase < 10 U/L (15-37); Bilirubin,Total 0.2 mg/dL (0.00-1.00); Blood Urea Nitrogen 19 mg/dL (7-18); Calcium 8.4 mg/dL (8.5-10.1); Carbon Dioxide 32 mmol/L (21-32); Chloride 102 mmol/L (98-108); Estimated CRCL calculation 42 ml/min; Estimated Glomerular Filt Rate > 60; Glucose 94 mg/dL (70-99); Osmolality Calculated 286 mOsm/kg (285-295); Potassium 4.5 mmol/L (3.5-5.1); Sodium 137 mmol/L (136-145); Total Protein 5.9 g/dL (6.4-8.2)
[2024-03-22] MEDS: LEVOTHYROXINE SODIUM 75 MCG TABLET PO (06:25)
[2024-03-22] MEDS: GABAPENTIN 100 MG CAPSULE BY MOUTH ×3 (06:25→21:12)
[2024-03-22] MEDS: hydrOXYzine HCL 25 MG TABLET PO ×2 (06:25→20:52)
[2024-03-22 08:00] VITALS: BP 164/70; PULSE 62; RESP 18; TEMP 36.3; O2SAT 97
[2024-03-22] MEDS: TRIAMCINOLONE ACET 0.1% CREAM 80 GM TUBE 1 APPLIC TOPICAL ×2 (09:09→17:21)
[2024-03-22] MEDS: ENOXAPARIN 40 MG/0.4 ML SYRINGE SUB-Q (09:09)
[2024-03-22] MEDS: CYANOCOBALAMIN 500 MCG TABLET PO (09:10)
[2024-03-22] MEDS: CLOPIDOGREL BISULFATE 75 MG TABLET PO (09:10)
[2024-03-22] MEDS: ASCORBIC ACID 500 MG TABLET PO ×2 (09:10→17:16)
[2024-03-22] MEDS: buPROPion HCL XL (24 HR) 150 MG TABCR PO (09:10)
[2024-03-22] MEDS: ATORVASTATIN 40 MG TABLET 80 MG PO (09:10)
[2024-03-22] MEDS: MEGESTROL ACETATE (*CHEMO) 40 MG TABLET PO ×4 (09:10→20:52)
[2024-03-22] MEDS: ASPIRIN 81 MG ENTERIC TABLET PO (09:10)
[2024-03-22] MEDS: DIVALPROEX SODIUM DR 250 MG TABEC 500 MG PO ×2 (09:10→21:12)
[2024-03-22] MEDS: diphenhydrAMINE HCl CAP 25 MG CAPSULE PO (09:10)
[2024-03-22] MEDS: busPIRone HCL 5 MG TABLET 15 MG PO ×3 (09:10→17:16)
[2024-03-22] MEDS: FOLIC ACID 1 MG TABLET PO (09:11)
--- NOTE | 2024-03-22 10:16 | P.PNCROSS_ITS ---
Event Note Event Note Event Note: Patient remains very itchy and her scabies look better but not gone. We will at tempt IVErmectin to see how this works and continue to monitor patient. Patient family still has not gotten back with us. I did discuss with case management we may need to see the next steps to make her [place]. Patient WBC continue to go there is no true signs of infection unsure if it is because of the parasites or if the pneumonia seen is causin problems there is no shortness of breath. I did start her on a course of oral azithromycin.,
--- NOTE | 2024-03-22 10:30 | P.PN_ITS ---
Progress Note: A&P Assessment and Plan (1) Pneumonia: Qualifiers: Laterality: left Lung location: lower lobe of lung Pneumonia type: due to unspecified organism Qualified Code(s): J18.9 - Pneumonia, unspecified organism Code(s): J18.9 - Pneumonia, unspecified organism Status: Resolved Assessment and Plan: CXR left basilar infiltrates suspicious for pneumonia, normal WBC, afebrile, on room air but does have generalized weakness that has worsened over the last week * given Rocephin and azithromycin in the emergency department * transitioned to oral Augmentin * oxygen p.r.n. * incentive spirometer 03/16 * Continue Augmentin and Azithromycin * Continue IS while awake 03/17 * Continue current treatment plan 03/18 * No change RESOLVED (2) Rash: Code(s): R21 - Rash and other nonspecific skin eruption Status: Acute Assessment and Plan: * systemic rash upper and lower extremities chest and back * treat with prednisone added Benadryl for itching 03/16 * Rash all over body, BUE, BLE and inbetween fingers and toes * Could be a form of eczema, however can not rule out scabies. Left message for daughter to call back. * Continue prednisone * Will order permethrin 5% topical cream x1 now. * Start Atarax for itching * Will isolate for possible scabies 03/17 * Rash showing some improvement with permethrin 5% cream * Continue atarax for itching 03/18 * rash improving but still with mild itch * Stopped prednisone * can continue with cream * Bed bugs vs scabies vs systemic dermatitis 03/20 * No change to current treatment plan (3) Generalized weakness: Code(s): R53.1 - Weakness Status: Acute Assessment and Plan: * likely secondary to pneumonia and failure to thrive * PT/OT for evaluation * family requesting SNF 03/16 * Continue PT and OT * Case management following for outpatient rehab needs 03/17 * Continue PT and OT * Will require placement 03/20 * No change * Case coordination working on placement 03/21 * Department of family services contacted as we are still unsuccessful in getting in touch with the daughter. Patient is unable to make decisions for herself. Case management following. * continue PT and OT L (4) Moderate protein-calorie malnutrition: Code(s): E44.0 - Moderate protein-calorie malnutrition Status: Chronic Assessment and Plan: * secondary to failure to thrive * added protein shakes to each meal * regular diet * Resumed Megace 03/16 * encourage po intake * No change to current treatment plan 03/17 * No change (5) Adult failure to thrive: Code(s): R62.7 - Adult failure to thrive Status: Acute Assessment and Plan: patient has been worsening for the last year patient's passed around a year ago suffering from depression, bipolar disorder and anxiety * intermediate designer placement * see above 3 03/16 * Continue PT and OT * Case management working on placement 03/17 * No change (6) Depression: Code(s): F32.9 - Major depressive disorder, single episode, unspecified Status: Chronic Assessment and Plan: * Resumed home medications BuSpar and Wellbutrin, citalopram 03/16 * No change (7) Anxiety: Code(s): F41.9 - Anxiety disorder, unspecified Status: Chronic Assessment and Plan: * Resumed home medications BuSpar and Wellbutrin 03/16 * No change (8) Bipolar disorder: Code(s): F31.9 - Bipolar disorder, unspecified Status: Chronic Assessment and Plan: * Resumed home medications divalproex 03/16 * No change (9) Hypothyroidism: Code(s): E03.9 - Hypothyroidism, unspecified Status: Chronic Assessment and Plan: * Resumed Levothyroxine 03/16 * Will check TSH level * Continue Synthroid 03/17 * TSH 0.89 (10) Hypotension: Code(s): I95.9 - Hypotension, unspecified Status: Acute Assessment and Plan: * resume patient's midodrine * monitor BP per unit protocol 03/16 * No change Subjective Date/time seen: 03/22/24 10:30 Interval history: Patient family still not response. Patient still very itchy I started a dose of IVermectin due to the severe case we will administer the permethrin in the morning. Patient WBC elevated to 18 unsure if this is due to parasites or if the pneumonia is still lingering we will start on azithromycin due to severe interaction with Atarax I will schedule this Q12 prn and continue to monitor cxr in the am. We will continue to monitor. Patient remains extremely itchy. Exam Narrative: General: failure to thrive, very malnourished Cardiac: Normal S1 and S2. No murmur, gallops or friction rubs, peripheral pulses intact. Respiratory: Lungs clear to auscultation, no adventitious lung sounds, currently on room air Gastrointestinal: soft, non-distended, non-tender, normoactive bowel sounds. : voiding without difficulty. Extremities: moves all extremities well, no edema Skin: rash noted all over torso, BUE, BLE with scabbed and bleeding areas from scratching--improved Neuro: Alert Objective Data Vital Signs Vital Signs: Vital Signs - 24 hr 03/21/24 16:00 03/21/24 20:00 03/22/24 00:00 Temperature 97 F L 97.6 F Pulse Rate 84 84 91 Respiratory Rate 18 18 17 Blood Pressure 142/72 H 117/71 Pulse Oximetry 95 95 97 Oxygen Delivery Room Air Room Air Room Air 03/22/24 08:00 Temperature 97.4 F L Pulse Rate 62 Respiratory Rate 18 Blood Pressure 164/70 H Pulse Oximetry 97 Oxygen Delivery Room Air Intake/Output Intake/Output: Intake & Output 03/19/24 03/20/24 03/21/24 03/22/24 23:59 23:59 23:59 23:59 Intake Total 2840 2089 1585 480 Output Total 100 Balance [id number] 1585 480 Meds/Results Medications: Active Medications Generic Name Dose Route Start Last Admin Trade Name Freq PRN Reason Stop Dose Admin Acetaminophen 650 mg 03/14/24 20:34 03/21/24 20:20 Acetaminophen 325 Mg Tablet PO 650 mg Q4H PRN Administration Mild Pain (1-3) or Fever Al Hydrox/Mg Hydrox/Simethicone 30 ml 03/14/24 20:34 Mag Hydrox/Al Hydrox/Simeth 30 Ml Udc PO QID PRN Dyspepsia Ascorbic Acid 500 mg 03/15/24 09:00 03/22/24 09:10 Ascorbic Acid 500 Mg Tablet PO 500 mg BID MINH Administration Aspirin 81 mg 03/15/24 09:00 03/22/24 09:10 Aspirin 81 Mg Enteric Tablet PO 81 mg QAM MINH Administration Atorvastatin Calcium 80 mg 03/15/24 09:00 03/22/24 09:10 Atorvastatin 40 Mg Tablet PO 80 mg DAILY [facility] Administration Azithromycin 500 mg 03/22/24 10:25 Azithromycin 250 Mg Tablet PO 03/22/24 10:26 ONCE ONE Azithromycin 250 mg 03/23/24 09:00 Azithromycin 250 Mg Tablet PO 03/26/24 09:01 DAILY MINH Bupropion HCl 150 mg 03/15/24 09:00 03/22/24 09:10 Bupropion Hcl Xl (24 Hr) 150 Mg Tabcr PO 150 mg DAILY [facility] Administration Buspirone HCl 15 mg 03/15/24 09:00 03/22/24 09:10 Buspirone Hcl 5 Mg Tablet PO 15 mg TID MIN[facility] Administration Clopidogrel Bisulfate 75 mg 03/15/24 09:00 03/22/24 09:10 Clopidogrel Bisulfate 75 Mg Tablet PO 75 mg DAILY [facility] Administration Cyanocobalamin 500 mcg 03/15/24 09:00 03/22/24 09:10 Cyanocobalamin 500 Mcg Tablet PO 500 mcg QAM MINH Administration Diphenhydramine HCl 25 mg 03/15/24 10:06 03/22/24 09:10 Diphenhydramine Hcl Cap 25 Mg Capsule PO 25 mg Q6H PRN Administration Itching Divalproex Sodium 500 mg 03/14/24 22:15 03/22/24 09:[address] 250 Mg Tabec PO 500 mg Q12H MIN[facility] Administration Enoxaparin Sodium 40 mg 03/16/24 09:00 03/22/24 09:09 Enoxaparin 40 Mg/0.4 Ml Syringe SUB-Q 40 mg DAILY [facility] Administration Escitalopram Oxalate 10 mg 03/14/24 21:00 03/21/24 20:20 Escitalopram Oxalate 10 Mg Tablet PO 10 mg HS MINH Administration Folic Acid 1 mg 03/15/24 09:00 03/22/24 09:11 Folic Acid 1 Mg Tablet PO 1 mg DAILY [facility] Administration Gabapentin 100 mg 03/14/24 22:00 03/22/24 06:25 Gabapentin 100 Mg Capsule BY MOUTH 100 mg Q8HR MINH Administration Hydroxyzine HCl 25 mg 03/22/24 10:26 Hydroxyzine Hcl 25 Mg Tablet PO Q12H PRN Itching Levothyroxine Sodium 75 mcg 03/15/24 09:00 03/22/24 06:25 Levothyroxine Sodium 75 Mcg Tablet PO 75 mcg DAILY@0630 [facility] Administration Megestrol Acetate 40 mg 03/16/24 13:00 03/22/24 09:10 Megestrol Acetate (*Chemo) 40 Mg Tablet PO 40 mg QID [facility]H Administration Nonform Permethrin 1 each 03/16/24 18:00 03/16/24 17:40 Cream 5% TOPICAL 04/15/24 17:59 1 each WEEKLY@1800 [facility]H Administration Nonformulary Drug ( 3 each 03/22/24 10:30 Ivermectin 3mg PO 03/22/24 10:31 Tablet) ONCE ONE Trazodone HCl 100 mg 03/14/24 22:25 03/21/24 20:19 Trazodone Hcl 50 Mg Tablet PO 100 mg HS PRN Administration Insomnia Triamcinolone Acetonide 1 applic 03/15/24 17:00 03/22/24 09:09 Triamcinolone Acet 0.1% Cream 80 Gm Tube TOPICAL 1 applic BID MINH Administration Radiology Results: ITS Impressions Chest X-Ray 03/14/24 19:18 Impression: 1: Left basilar infiltrates, suspicious for pneumonia. Labs Labs: Laboratory Results - last 24 hr 03/22/24 05:26 WBC 18.1 H RBC 3.15 L Hgb 9.7 L Hct 31.3 L MCV 99.4 MCH 30.8 MCHC 31.0 L RDW 14.4 Plt Count 315 MPV 9.0 L Sodium 137 Potassium 4.5 Chloride 102 Carbon Dioxide 32 Anion Gap 3 L BUN 19 H Creatinine 0.85 Estim Creat Clear Calc 42 Estimated GFR > 60 Glucose 94 Calculated Osmolality 286 Calcium 8.4 L Total Bilirubin 0.2 AST < 10 L ALT 11 L Alkaline Phosphatase 66 Total Protein 5.9 L Albumin 2.3 L
[2024-03-22] MEDS: IVERMECTIN 3 MG PO (10:39)
[2024-03-22] MEDS: [UNRECOGNIZED DRUG - OTHER] PO (10:39)
[2024-03-22] MEDS: AZITHROMYCIN 250 MG TABLET 500 MG PO (11:34)
[2024-03-22 16:00] VITALS: BP 115/92; PULSE 99; RESP 18; TEMP 37; O2SAT 100
[2024-03-22] MEDS: traZODone HCL 50 MG TABLET 100 MG PO (20:51)
[2024-03-22] MEDS: ESCITALOPRAM OXALATE 10 MG TABLET PO (20:53)
[2024-03-23] VITALS: BP 136/53; PULSE 88; RESP 16; TEMP 36.8; O2SAT 98
[2024-03-23 06:04] LABS: Hematocrit 30.6 % (35.0-42.0); Hemoglobin 9.6 g/dL (11.7-13.8); Mean Corpuscular HGB Conc 31.4 g/dL (32-36); Mean Corpuscular Hemoglobin 31.3 pg (27.0-31.0); Mean Corpuscular Volume 99.7 fL (78.0-102.0); Mean Platelet Volume 9.7 fl (9.2-11.8); Platelet Count Result 331 K/mm3 (150-420); Red Blood Count 3.07 M/mm3 (4.20-5.40); Red Cell Distribution Width 14.6 % (11.6-14.4)
[2024-03-23] MEDS: GABAPENTIN 100 MG CAPSULE BY MOUTH ×3 (06:05→21:08)
[2024-03-23] MEDS: LEVOTHYROXINE SODIUM 75 MCG TABLET PO (06:05)
[2024-03-23 06:07] LABS: White Blood Count 23.7 K/mm3 (4.8-10.8)
[2024-03-23 06:13] LABS: Alanine Aminotransferase 8 U/L (14-59); Albumin Level 2.2 g/dL (3.4-5.0); Alkaline Phosphatase 68 U/L (46-116); Anion Gap 4 mmol/L (4-12); Aspartate Amino Transferase < 10 U/L (15-37); Bilirubin,Total 0.2 mg/dL (0.00-1.00); Blood Urea Nitrogen 16 mg/dL (7-18); Calcium 8.8 mg/dL (8.5-10.1); Carbon Dioxide 31 mmol/L (21-32); Chloride 101 mmol/L (98-108); Estimated CRCL calculation 41 ml/min; Estimated Glomerular Filt Rate > 60; Glucose 88 mg/dL (70-99); Osmolality Calculated 282 mOsm/kg (285-295); Potassium 4.7 mmol/L (3.5-5.1); Sodium 136 mmol/L (136-145); Total Protein 6.2 g/dL (6.4-8.2)
[2024-03-23 08:00] VITALS: BP 97/66; PULSE 97; RESP 20; TEMP 36.7; O2SAT 98
--- NOTE | 2024-03-23 08:21 | P.PN_ITS ---
Progress Note: A&P Assessment and Plan (1) Pneumonia: Qualifiers: Laterality: left Lung location: lower lobe of lung Pneumonia type: due to unspecified organism Qualified Code(s): J18.9 - Pneumonia, unspecified organism Code(s): J18.9 - Pneumonia, unspecified organism Status: Resolved Assessment and Plan: CXR left basilar infiltrates suspicious for pneumonia, normal WBC, afebrile, on room air but does have generalized weakness that has worsened over the last week * given Rocephin and azithromycin in the emergency department * transitioned to oral Augmentin * oxygen p.r.n. * incentive spirometer 03/16 * Continue Augmentin and Azithromycin * Continue IS while awake 03/17 * Continue current treatment plan 03/18 * No change RESOLVED 03/23 Repeat chest xray awaiting result WBC have increased to 23 unknown cause no s/s of infection (2) Rash: Code(s): R21 - Rash and other nonspecific skin eruption Status: Acute Assessment and Plan: * systemic rash upper and lower extremities chest and back * treat with prednisone added Benadryl for itching 03/16 * Rash all over body, BUE, BLE and inbetween fingers and toes * Could be a form of eczema, however can not rule out scabies. Left message for daughter to call back. * Continue prednisone * Will order permethrin 5% topical cream x1 now. * Start Atarax for itching * Will isolate for possible scabies 03/17 * Rash showing some improvement with permethrin 5% cream * Continue atarax for itching 03/18 * rash improving but still with mild itch * Stopped prednisone * can continue with cream * Bed bugs vs scabies vs systemic dermatitis 03/20 * No change to current treatment plan 03/23/2024 * Ivermectin given yesterday * Permethrin will be administered today * prn medication * skin looks a lot better (3) Generalized weakness: Code(s): R53.1 - Weakness Status: Acute Assessment and Plan: * likely secondary to pneumonia and failure to thrive * PT/OT for evaluation * family requesting SNF 03/16 * Continue PT and OT * Case management following for outpatient rehab needs 03/17 * Continue PT and OT * Will require placement 03/20 * No change * Case coordination working on placement 03/21 * Department of family services contacted as we are still unsuccessful in getting in touch with the daughter. Patient is unable to make decisions for herself. Case management following. * continue PT and OT (4) Moderate protein-calorie malnutrition: Code(s): E44.0 - Moderate protein-calorie malnutrition Status: Chronic Assessment and Plan: * secondary to failure to thrive * added protein shakes to each meal * regular diet * Resumed Megace 03/16 * encourage po intake * No change to current treatment plan 03/17 * No change (5) Adult failure to thrive: Code(s): R62.7 - Adult failure to thrive Status: Acute Assessment and Plan: patient has been worsening for the last year patient's passed around a year ago suffering from depression, bipolar disorder and anxiety * long term care administrator placement * see above 3 03/16 * Continue PT and OT * Case management working on placement 03/17 * No change (6) Depression: Code(s): F32.9 - Major depressive disorder, single episode, unspecified Status: Chronic Assessment and Plan: * Resumed home medications BuSpar and Wellbutrin, citalopram 03/16 * No change (7) Anxiety: Code(s): F41.9 - Anxiety disorder, unspecified Status: Chronic Assessment and Plan: * Resumed home medications BuSpar and Wellbutrin 03/16 * No change (8) Bipolar disorder: Code(s): F31.9 - Bipolar disorder, unspecified Status: Chronic Assessment and Plan: * Resumed home medications divalproex 03/16 * No change (9) Hypothyroidism: Code(s): E03.9 - Hypothyroidism, unspecified Status: Chronic Assessment and Plan: * Resumed Levothyroxine 03/16 * Will check TSH level * Continue Synthroid 03/17 * TSH 0.89 (10) Hypotension: Code(s): I95.9 - Hypotension, unspecified Status: Acute Assessment and Plan: * resume patient's midodrine * monitor BP per unit protocol 03/16 * No change Subjective Date/time seen: 03/23/24 08:21 Exam Narrative: General: failure to thrive, very malnourished Cardiac: Normal S1 and S2. No murmur, gallops or friction rubs, peripheral pulses intact. Respiratory: Lungs clear to auscultation, no adventitious lung sounds, currently on room air Gastrointestinal: soft, non-distended, non-tender, normoactive bowel sounds. : voiding without difficulty. Extremities: moves all extremities well, no edema Skin: rash noted all over torso, BUE, BLE with scabbed and bleeding areas from scratching--improved Neuro: Alert Objective Data Vital Signs Vital Signs: Vital Signs - 24 hr 03/22/24 16:00 03/23/24 00:00 Temperature 98.6 F 98.3 F Pulse Rate 99 88 Respiratory Rate 18 16 Blood Pressure 115/92 H 136/53 L Pulse Oximetry 100 98 Oxygen Delivery Room Air Room Air Intake/Output Intake/Output: Intake & Output 03/20/24 03/21/24 03/22/24 03/23/24 23:59 23:59 23:59 23:59 Intake Total 2089 6152 8270 160 Balance 2089 1554 124 160 Meds/Results Medications: Active Medications Generic Name Dose Route Start Last Admin Trade Name Freq PRN Reason Stop Dose Admin Acetaminophen 650 mg 03/14/24 20:34 03/21/24 20:20 Acetaminophen 325 Mg Tablet PO 650 mg Q4H PRN Administration Mild Pain (1-3) or Fever Al Hydrox/Mg Hydrox/Simethicone 30 ml 03/14/24 20:34 Mag Hydrox/Al Hydrox/Simeth 30 Ml Udc PO QID PRN Dyspepsia Ascorbic Acid 500 mg 03/15/24 09:00 03/22/24 17:16 Ascorbic Acid 500 Mg Tablet PO 500 mg BID MINH Administration Aspirin 81 mg 03/15/24 09:00 03/22/24 09:10 Aspirin 81 Mg Enteric Tablet PO 81 mg QAM MINH Administration Atorvastatin Calcium 80 mg 03/15/24 09:00 03/22/24 09:10 Atorvastatin 40 Mg Tablet PO 80 mg DAILY MINH Administration Azithromycin 250 mg 03/23/24 09:00 Azithromycin 250 Mg Tablet PO 03/26/24 09:01 DAILY MINH Bupropion HCl 150 mg 03/15/24 09:00 03/22/24 09:10 Bupropion Hcl Xl (24 Hr) 150 Mg Tabcr PO 150 mg DAILY MINH Administration Buspirone HCl 15 mg 03/15/24 09:00 03/22/24 17:16 Buspirone Hcl 5 Mg Tablet PO 15 mg TID [facility] Administration Clopidogrel Bisulfate 75 mg 03/15/24 09:00 03/22/24 09:10 Clopidogrel Bisulfate 75 Mg Tablet PO 75 mg DAILY MINH Administration Cyanocobalamin 500 mcg 03/15/24 09:00 03/22/24 09:10 Cyanocobalamin 500 Mcg Tablet PO 500 mcg QAM MINH Administration Diphenhydramine HCl 25 mg 03/15/24 10:06 03/22/24 09:10 Diphenhydramine Hcl Cap 25 Mg Capsule PO 25 mg Q6H PRN Administration Itching Divalproex Sodium 500 mg 03/14/24 22:15 03/22/24 21:[address] 250 Mg Tabec PO 500 mg Q12H MIN[facility] Administration Enoxaparin Sodium 40 mg 03/16/24 09:00 03/22/24 09:09 Enoxaparin 40 Mg/0.4 Ml Syringe SUB-Q 40 mg DAILY [facility] Administration Escitalopram Oxalate 10 mg 03/14/24 21:00 03/22/24 20:53 Escitalopram Oxalate 10 Mg Tablet PO 10 mg HS MINH Administration Folic Acid 1 mg 03/15/24 09:00 03/22/24 09:11 Folic Acid 1 Mg Tablet PO 1 mg DAILY [facility] Administration Gabapentin 100 mg 03/14/24 22:00 03/23/24 06:05 Gabapentin 100 Mg Capsule BY MOUTH 100 mg Q8HR [facility] Administration Hydroxyzine HCl 25 mg 03/22/24 10:26 03/22/24 20:52 Hydroxyzine Hcl 25 Mg Tablet PO 25 mg Q12H PRN Administration Itching Levothyroxine Sodium 75 mcg 03/15/24 09:00 03/23/24 06:05 Levothyroxine Sodium 75 Mcg Tablet PO 75 mcg DAILY@0630 [facility] Administration Megestrol Acetate 40 mg 03/16/24 13:00 03/22/24 20:52 Megestrol Acetate (*Chemo) 40 Mg Tablet PO 40 mg QID [facility] Administration Nonform Permethrin 1 each 03/16/24 18:00 03/16/24 17:40 Cream 5% TOPICAL 04/15/24 17:59 1 each WEEKLY@1800 [facility] Administration Nonformulary Drug ( 3 each 03/23/24 10:00 Ivermectin 3mg PO 03/23/24 10:01 Tablet) ONCE ONE Trazodone HCl 100 mg 03/14/24 22:25 03/22/24 20:51 Trazodone Hcl 50 Mg Tablet PO 100 mg HS PRN Administration Insomnia Triamcinolone Acetonide 1 applic 03/15/24 17:00 03/22/24 17:21 Triamcinolone Acet 0.1% Cream 80 Gm Tube TOPICAL 1 applic BID MINH Administration Labs Labs: Laboratory Results - last 24 hr 03/23/24 05:32 WBC 23.7 H* RBC 3.07 L Hgb 9.6 L Hct 30.6 L MCV 99.7 MCH 31.3 H MCHC 31.4 L RDW 14.6 H Plt Count 331 MPV 9.7 Sodium 136 Potassium 4.7 Chloride 101 Carbon Dioxide 31 Anion Gap 4 BUN 16 Creatinine 0.87 Estim Creat Clear Calc 41 Estimated GFR > 60 Glucose 88 Calculated Osmolality 282 L Calcium 8.8 Total Bilirubin 0.2 AST < 10 L ALT 8 L Alkaline Phosphatase 68 Total Protein 6.2 L Albumin 2.2 L
--- NOTE | 2024-03-23 08:21 | WPDPN ---
Progress Note: A&P Assessment and Plan (1) Pneumonia: Qualifiers: Laterality: left Lung location: lower lobe of lung Pneumonia type: due to unspecified organism Qualified Code(s): J18.9 - Pneumonia, unspecified organism Code(s): J18.9 - Pneumonia, unspecified organism Status: Resolved Assessment and Plan: CXR left basilar infiltrates suspicious for pneumonia, normal WBC, afebrile, on room air but does have generalized weakness that has worsened over the last week given Rocephin and azithromycin in the emergency department transitioned to oral Augmentin oxygen p.r.n. incentive spirometer 03/16 Continue Augmentin and Azithromycin Continue IS while awake 03/17 Continue current treatment plan 03/18 No change RESOLVED 03/23 Repeat chest xray awaiting result WBC have increased to 23 unknown cause no s/s of infection (2) Rash: Code(s): R21 - Rash and other nonspecific skin eruption Status: Acute Assessment and Plan: systemic rash upper and lower extremities chest and back treat with prednisone added Benadryl for itching 03/16 Rash all over body, BUE, BLE and inbetween fingers and toes Could be a form of eczema, however can not rule out scabies. Left message for daughter to call back. Continue prednisone Will order permethrin 5% topical cream x1 now. Start Atarax for itching Will isolate for possible scabies 03/17 Rash showing some improvement with permethrin 5% cream Continue atarax for itching 03/18 rash improving but still with mild itch Stopped prednisone can continue with cream Bed bugs vs scabies vs systemic dermatitis 03/20 No change to current treatment plan 03/23/2024 Ivermectin given yesterday Permethrin will be administered today prn medication skin looks a lot better (3) Generalized weakness: Code(s): R53.1 - Weakness Status: Acute Assessment and Plan: likely secondary to pneumonia and failure to thrive PT/OT for evaluation family requesting SNF 03/16 Continue PT and OT Case management following for outpatient rehab needs 03/17 Continue PT and OT Will require placement 03/20 No change Case coordination working on placement 03/21 Department of family services contacted as we are still unsuccessful in getting in touch with the daughter. Patient is unable to make decisions for herself. Case management following. 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 see above 3 03/16 Continue PT and OT Case management working on placement 03/17 No change (6) Depression: Code(s): F32.9 - Major depressive disorder, single episode, unspecified Status: Chronic Assessment and Plan: Resumed home medications BuSpar and Wellbutrin, citalopram 03/16 No change (7) Anxiety: Code(s): F41.9 - Anxiety disorder, unspecified Status: Chronic Assessment and Plan: Resumed home medications BuSpar and Wellbutrin 03/16 No change (8) Bipolar disorder: Code(s): F31.9 - Bipolar disorder, unspecified Status: Chronic Assessment and Plan: Resumed home medications divalproex 03/16 No change (9) Hypothyroidism: Code(s): E03.9 - Hypothyroidism, unspecified Status: Chronic Assessment and Plan: Resumed Levothyroxine 03/16 Will check TSH level Continue Synthroid 03/17 TSH 0.89 (10) Hypotension: Code(s): I95.9 - Hypotension, unspecified Status: Acute Assessment and Plan: resume patient's midodrine monitor BP per unit protocol 03/16 No change Subjective Date/time seen: 03/23/24 08:21 Exam Narrative: General: failure to thrive, very malnourished Cardiac: Normal S1 and S2. No murmur, gallops or friction rubs, peripheral pulses intact. Respiratory: Lungs clear to auscultation, no adventitious lung sounds, currently on room air Gastrointestinal: soft, non-distended, non-tender, normoactive bowel sounds. : voiding without difficulty. Extremities: moves all extremities well, no edema Skin: rash noted all over torso, BUE, BLE with scabbed and bleeding areas from scratching--improved Neuro: Alert Objective Data Vital Signs Vital Signs: Vital Signs - 24 hr 03/22/24 16:00 03/23/24 00:00 Temperature 98.6 F 98.3 F Pulse Rate 99 88 Respiratory Rate 18 16 Blood Pressure 115/92 H 136/53 L Pulse Oximetry 100 98 Oxygen Delivery Room Air Room Air Intake/Output Intake/Output: Intake & Output 03/20/24 03/21/24 03/22/24 03/23/24 23:59 23:59 23:59 23:59 Intake Total 2089 1585 1247 160 Balance 2089 1585 1247 160 Meds/Results Medications: Active Medications Generic Name Dose Route Start Last Admin Trade Name Freq PRN Reason Stop Dose Admin Acetaminophen 650 mg 03/14/24 20:34 03/21/24 20:20 Acetaminophen 325 Mg Tablet PO 650 mg Q4H PRN Administration Mild Pain (1-3) or Fever Al Hydrox/Mg Hydrox/Simethicone 30 ml 03/14/24 20:34 Mag Hydrox/Al Hydrox/Simeth 30 Ml Udc PO QID PRN Dyspepsia Ascorbic Acid 500 mg 03/15/24 09:00 03/22/24 17:16 Ascorbic Acid 500 Mg Tablet PO 500 mg BID [facility] Administration Aspirin 81 mg 03/15/24 09:00 03/22/24 09:10 Aspirin 81 Mg Enteric Tablet PO 81 mg QAM [facility] Administration Atorvastatin Calcium 80 mg 03/15/24 09:00 03/22/24 09:10 Atorvastatin 40 Mg Tablet PO 80 mg DAILY [facility] Administration Azithromycin 250 mg 03/23/24 09:00 Azithromycin 250 Mg Tablet PO 03/26/24 09:01 DAILY MINH Bupropion HCl 150 mg 03/15/24 09:00 03/22/24 09:10 Bupropion Hcl Xl (24 Hr) 150 Mg Tabcr PO 150 mg DAILY [facility] Administration Buspirone HCl 15 mg 03/15/24 09:00 03/22/24 17:16 Buspirone Hcl 5 Mg Tablet PO 15 mg TID [facility] Administration Clopidogrel Bisulfate 75 mg 03/15/24 09:00 03/22/24 09:10 Clopidogrel Bisulfate 75 Mg Tablet PO 75 mg DAILY [facility] Administration Cyanocobalamin 500 mcg 03/15/24 09:00 03/22/24 09:10 Cyanocobalamin 500 Mcg Tablet PO 500 mcg QAM [facility] Administration Diphenhydramine HCl 25 mg 03/15/24 10:06 03/22/24 09:10 Diphenhydramine Hcl Cap 25 Mg Capsule PO 25 mg Q6H PRN Administration Itching Divalproex Sodium 500 mg 03/14/24 22:15 03/22/24 21:[address] 250 Mg Tabec PO 500 mg Q12H [facility] Administration Enoxaparin Sodium 40 mg 03/16/24 09:00 03/22/24 09:09 Enoxaparin 40 Mg/0.4 Ml Syringe SUB-Q 40 mg DAILY [facility] Administration Escitalopram Oxalate 10 mg 03/14/24 21:00 03/22/24 20:53 Escitalopram Oxalate 10 Mg Tablet PO 10 mg HS [facility] Administration Folic Acid 1 mg 03/15/24 09:00 03/22/24 09:11 Folic Acid 1 Mg Tablet PO 1 mg DAILY [facility] Administration Gabapentin 100 mg 03/14/24 22:00 03/23/24 06:05 Gabapentin 100 Mg Capsule BY MOUTH 100 mg Q8HR [facility] Administration Hydroxyzine HCl 25 mg 03/22/24 10:26 03/22/24 20:52 Hydroxyzine Hcl 25 Mg Tablet PO 25 mg Q12H PRN Administration Itching Levothyroxine Sodium 75 mcg 03/15/24 09:00 03/23/24 06:05 Levothyroxine Sodium 75 Mcg Tablet PO 75 mcg DAILY@0630 [facility] Administration Megestrol Acetate 40 mg 03/16/24 13:00 03/22/24 20:52 Megestrol Acetate (*Chemo) 40 Mg Tablet PO 40 mg QID [facility] Administration Nonform Permethrin 1 each 03/16/24 18:00 03/16/24 17:40 Cream 5% TOPICAL 04/15/24 17:59 1 each WEEKLY@1800 [facility] Administration Nonformulary Drug ( 3 each 03/23/24 10:00 Ivermectin 3mg PO 03/23/24 10:01 Tablet) ONCE ONE Trazodone HCl 100 mg 03/14/24 22:25 03/22/24 20:51 Trazodone Hcl 50 Mg Tablet PO 100 mg HS PRN Administration Insomnia Triamcinolone Acetonide 1 applic 03/15/24 17:00 03/22/24 17:21 Triamcinolone Acet 0.1% Cream 80 Gm Tube TOPICAL 1 applic BID [facility] Administration Labs Labs: Laboratory Results - last 24 hr 03/23/24 05:32 WBC 23.7 H* RBC 3.07 L Hgb 9.6 L Hct 30.6 L MCV 99.7 MCH 31.3 H MCHC 31.4 L RDW 14.6 H Plt Count 331 MPV 9.7 Sodium 136 Potassium 4.7 Chloride 101 Carbon Dioxide 31 Anion Gap 4 BUN 16 Creatinine 0.87 Estim Creat Clear Calc 41 Estimated GFR > 60 Glucose 88 Calculated Osmolality 282 L Calcium 8.8 Total Bilirubin 0.2 AST < 10 L ALT 8 L Alkaline Phosphatase 68 Total Protein 6.2 L Albumin 2.2 L
[2024-03-23 09:03] LABS: Lactic Acid Reflex 1.6 mmol/L (0.4-2.0)
[2024-03-23] MEDS: ENOXAPARIN 40 MG/0.4 ML SYRINGE SUB-Q (09:13)
[2024-03-23] MEDS: MEGESTROL ACETATE (*CHEMO) 40 MG TABLET PO ×4 (09:14→21:08)
[2024-03-23] MEDS: DIVALPROEX SODIUM DR 250 MG TABEC 500 MG PO ×2 (09:15→21:09)
[2024-03-23] MEDS: AZITHROMYCIN 250 MG TABLET PO (09:16)
[2024-03-23] MEDS: CYANOCOBALAMIN 500 MCG TABLET PO (09:16)
[2024-03-23] MEDS: CLOPIDOGREL BISULFATE 75 MG TABLET PO (09:16)
[2024-03-23] MEDS: ASPIRIN 81 MG ENTERIC TABLET PO (09:16)
[2024-03-23] MEDS: buPROPion HCL XL (24 HR) 150 MG TABCR PO (09:16)
[2024-03-23] MEDS: busPIRone HCL 5 MG TABLET 15 MG PO ×3 (09:16→17:24)
[2024-03-23] MEDS: ASCORBIC ACID 500 MG TABLET PO ×2 (09:17→17:23)
[2024-03-23] MEDS: FOLIC ACID 1 MG TABLET PO (09:17)
[2024-03-23] MEDS: ATORVASTATIN 40 MG TABLET 80 MG PO (09:17)
[2024-03-23] MEDS: IVERMECTIN 3 MG PO (09:18)
[2024-03-23] MEDS: [UNRECOGNIZED DRUG - OTHER] PO (09:18)
[2024-03-23] MEDS: TRIAMCINOLONE ACET 0.1% CREAM 80 GM TUBE 1 APPLIC TOPICAL ×2 (09:22→17:25)
[2024-03-23 16:00] VITALS: BP 105/68; PULSE 95; RESP 20; TEMP 36.6; O2SAT 98
[2024-03-23] MEDS: PERMETHRIN 5% 1 EACH TOPICAL (18:19)
[2024-03-23] MEDS: ESCITALOPRAM OXALATE 10 MG TABLET PO (21:08)
[2024-03-23] MEDS: diphenhydrAMINE HCl CAP 25 MG CAPSULE PO (21:08)
[2024-03-23] MEDS: hydrOXYzine HCL 25 MG TABLET PO (21:08)
[2024-03-23] MEDS: traZODone HCL 50 MG TABLET 100 MG PO (21:09)
[2024-03-23 23:49] VITALS: BP 147/92; PULSE 110; RESP 16; TEMP 36.8; O2SAT 96
[2024-03-24] MEDS: GABAPENTIN 100 MG CAPSULE BY MOUTH ×3 (05:48→21:50)
[2024-03-24] MEDS: LEVOTHYROXINE SODIUM 75 MCG TABLET PO (05:48)
[2024-03-24 08:00] VITALS: BP 119/63; PULSE 95; RESP 20; TEMP 36.7; O2SAT 97
[2024-03-24] MEDS: busPIRone HCL 5 MG TABLET 15 MG PO ×3 (08:13→17:25)
[2024-03-24] MEDS: ASPIRIN 81 MG ENTERIC TABLET PO (08:13)
[2024-03-24] MEDS: ENOXAPARIN 40 MG/0.4 ML SYRINGE SUB-Q (08:13)
[2024-03-24] MEDS: MEGESTROL ACETATE (*CHEMO) 40 MG TABLET PO ×4 (08:14→21:50)
[2024-03-24] MEDS: CYANOCOBALAMIN 500 MCG TABLET PO (08:14)
[2024-03-24] MEDS: FOLIC ACID 1 MG TABLET PO (08:14)
[2024-03-24] MEDS: ATORVASTATIN 40 MG TABLET 80 MG PO (08:15)
[2024-03-24] MEDS: AZITHROMYCIN 250 MG TABLET PO (08:15)
[2024-03-24] MEDS: ASCORBIC ACID 500 MG TABLET PO ×2 (08:15→17:25)
[2024-03-24] MEDS: CLOPIDOGREL BISULFATE 75 MG TABLET PO (08:15)
[2024-03-24] MEDS: buPROPion HCL XL (24 HR) 150 MG TABCR PO (08:15)
[2024-03-24] MEDS: TRIAMCINOLONE ACET 0.1% CREAM 80 GM TUBE 1 APPLIC TOPICAL ×2 (08:16→17:26)
--- NOTE | 2024-03-24 08:58 | P.PNIM_ITS ---
Progress Note: A&P Assessment and Plan (1) Pneumonia: Qualifiers: Laterality: left Lung location: lower lobe of lung Pneumonia type: due to unspecified organism Qualified Code(s): J18.9 - Pneumonia, unspecified organism Code(s): J18.9 - Pneumonia, unspecified organism Status: Resolved Assessment and Plan: CXR left basilar infiltrates suspicious for pneumonia, normal WBC, afebrile, on room air but does have generalized weakness that has worsened over the last week * given Rocephin and azithromycin in the emergency department * transitioned to oral Augmentin * oxygen p.r.n. * incentive spirometer 03/16 * Continue Augmentin and Azithromycin * Continue IS while awake 03/17 * Continue current treatment plan 03/18 * No change RESOLVED 03/23 Repeat chest xray awaiting result WBC have increased to 23 unknown cause no s/s of infection (2) Rash: Code(s): R21 - Rash and other nonspecific skin eruption Status: Acute Assessment and Plan: * systemic rash upper and lower extremities chest and back * treat with prednisone added Benadryl for itching 03/16 * Rash all over body, BUE, BLE and inbetween fingers and toes * Could be a form of eczema, however can not rule out scabies. Left message for daughter to call back. * Continue prednisone * Will order permethrin 5% topical cream x1 now. * Start Atarax for itching * Will isolate for possible scabies 03/17 * Rash showing some improvement with permethrin 5% cream * Continue atarax for itching 03/18 * rash improving but still with mild itch * Stopped prednisone * can continue with cream * Bed bugs vs scabies vs systemic dermatitis 03/20 * No change to current treatment plan 03/23/2024 * Ivermectin given yesterday * Permethrin will be administered today * prn medication * skin looks a lot better 03/24 * Finished course of ivermectin and permethrin cream * rash much improved * Atarax for itching (3) Generalized weakness: Code(s): R53.1 - Weakness Status: Acute Assessment and Plan: * likely secondary to pneumonia and failure to thrive * PT/OT for evaluation * family requesting SNF 03/16 * Continue PT and OT * Case management following for outpatient rehab needs 03/17 * Continue PT and OT * Will require placement 03/20 * No change * Case coordination working on placement 03/21 * Department of family services contacted as we are still unsuccessful in getting in touch with the daughter. Patient is unable to make decisions for herself. Case management following. * continue PT and OT 03/24 * continue PT and OT (4) Moderate protein-calorie malnutrition: Code(s): E44.0 - Moderate protein-calorie malnutrition Status: Chronic Assessment and Plan: * secondary to failure to thrive * added protein shakes to each meal * regular diet * Resumed Megace 03/16 * encourage po intake * No change to current treatment plan 03/17 * No change (5) Adult failure to thrive: Code(s): R62.7 - Adult failure to thrive Status: Acute Assessment and Plan: patient has been worsening for the last year patient's passed around a year ago suffering from depression, bipolar disorder and anxiety * [facility] placement * see above 3 03/16 * Continue PT and OT * Case management working on placement 03/17 * No change (6) Depression: Code(s): F32.9 - Major depressive disorder, single episode, unspecified Status: Chronic Assessment and Plan: * Resumed home medications BuSpar and Wellbutrin, citalopram 03/16 * No change (7) Anxiety: Code(s): F41.9 - Anxiety disorder, unspecified Status: Chronic Assessment and Plan: * Resumed home medications BuSpar and Wellbutrin 03/16 * No change (8) Bipolar disorder: Code(s): F31.9 - Bipolar disorder, unspecified Status: Chronic Assessment and Plan: * Resumed home medications divalproex 03/16 * No change (9) Hypothyroidism: Code(s): E03.9 - Hypothyroidism, unspecified Status: Chronic Assessment and Plan: * Resumed Levothyroxine 03/16 * Will check TSH level * Continue Synthroid 03/17 * TSH 0.89 (10) Hypotension: Code(s): I95.9 - Hypotension, unspecified Status: Acute Assessment and Plan: * resume patient's midodrine * monitor BP per unit protocol 03/16 * No change Time Spent With Patient Time with patient: 15 - 25 minutes Subjective Date/time seen: 03/24/24 08:58 Interval history: Interval history: (copy forward from chart) Patient is a 68-year-old female who was sent over to the emergency department by her primary care physician due to increased generalized weakness which has gotten increasingly worse over the last week. Patient is a poor historian some information was gathered via the medical chart as stated from emergency department family has requested patient be placed in long care facility unable to care for self anymore. patient with past medical history of bipolar disorder, CHF, failure to thrive, and depression. initial findings in the emergency department did show a chest x-ray with right lower lobe infiltrate suggestive of pneumonia. Patient with normal WBC, afebrile no respiratory distress. Patient denied CP, SOB, Cough, dizziness, nausea, and vomiting overall states she just did not feel well and has had worsening weakness. upon assessment patient was found to also a systemic rash lower and upper extremities as well as her trunk back as reported from medical chart when she saw her primary patient's daughter reported this began about a month ago with no new medications or changes. patient was admitted to the medical unit for pneumonia, generalized weakness, and failure to thrive. labs were reviewed and unremarkable vital stable. Subjective: rash much improved today. She was started on ivermectin for the past 2 days and her white blood cell count was elevated. It is now trending back down to 19.7 today. EMR reviewed Review of Systems Review of Systems: All systems reviewed & are unremarkable except as noted in HPI and below Exam Narrative: General: failure to thrive, very malnourished Cardiac: Normal S1 and S2. No murmur, gallops or friction rubs, peripheral pulses intact. Respiratory: Lungs clear to auscultation, no adventitious lung sounds, currently on room air Gastrointestinal: soft, non-distended, non-tender, normoactive bowel sounds. : voiding without difficulty. Extremities: moves all extremities well, no edema Skin: rash much improved. Neuro: Alert Objective Data Vital Signs Vital Signs: Vital Signs - 24 hr 03/23/24 16:00 03/23/24 23:49 Temperature 97.9 F 98.2 F Pulse Rate 95 110 H Respiratory Rate 20 16 Blood Pressure 105/68 147/92 H Pulse Oximetry 98 96 Oxygen Delivery Room Air Room Air Intake/Output Intake/Output: Intake & Output 03/21/24 03/22/24 03/23/24 03/24/24 23:59 23:59 23:59 23:59 Intake Total 1585 1247 1617 500 Balance 1585 1247 1617 500 Meds/Results Medications: Active Medications Generic Name Dose Route Start Last Admin Trade Name Freq PRN Reason Stop Dose Admin Acetaminophen 650 mg 03/14/24 20:34 03/21/24 20:20 Acetaminophen 325 Mg Tablet PO 650 mg Q4H PRN Administration Mild Pain (1-3) or Fever Al Hydrox/Mg Hydrox/Simethicone 30 ml 03/14/24 20:34 Mag Hydrox/Al Hydrox/Simeth 30 Ml Udc PO QID PRN Dyspepsia Ascorbic Acid 500 mg 03/15/24 09:00 03/24/24 08:15 Ascorbic Acid 500 Mg Tablet PO 500 mg BID [facility] Administration Aspirin 81 mg 03/15/24 09:00 03/24/24 08:13 Aspirin 81 Mg Enteric Tablet PO 81 mg QAM [facility] Administration Atorvastatin Calcium 80 mg 03/15/24 09:00 03/24/24 08:15 Atorvastatin 40 Mg Tablet PO 80 mg DAILY [facility] Administration Azithromycin 250 mg 03/23/24 09:00 03/24/24 08:15 Azithromycin 250 Mg Tablet PO 03/26/24 09:01 250 mg DAILY [facility] Administration Bupropion HCl 150 mg 03/15/24 09:00 03/24/24 08:15 Bupropion Hcl Xl (24 Hr) 150 Mg Tabcr PO 150 mg DAILY [facility] Administration Buspirone HCl 15 mg 03/15/24 09:00 03/24/24 08:13 Buspirone Hcl 5 Mg Tablet PO 15 mg TID [facility] Administration Clopidogrel Bisulfate 75 mg 03/15/24 09:00 03/24/24 08:15 Clopidogrel Bisulfate 75 Mg Tablet PO 75 mg DAILY [facility] Administration Cyanocobalamin 500 mcg 03/15/24 09:00 03/24/24 08:14 Cyanocobalamin 500 Mcg Tablet PO 500 mcg QAM [facility] Administration Diphenhydramine HCl 25 mg 03/15/24 10:06 03/23/24 21:08 Diphenhydramine Hcl Cap 25 Mg Capsule PO 25 mg Q6H PRN Administration Itching Divalproex Sodium 500 mg 03/14/24 22:15 03/23/24 21:[address] 250 Mg Tabec PO 500 mg Q12H [facility] Administration Enoxaparin Sodium 40 mg 03/16/24 09:00 03/24/24 08:13 Enoxaparin 40 Mg/0.4 Ml Syringe SUB-Q 40 mg DAILY [facility] Administration Escitalopram Oxalate 10 mg 03/14/24 21:00 03/23/24 21:08 Escitalopram Oxalate 10 Mg Tablet PO 10 mg HS [facility] Administration Folic Acid 1 mg 03/15/24 09:00 03/24/24 08:14 Folic Acid 1 Mg Tablet PO 1 mg DAILY [facility] Administration Gabapentin 100 mg 03/14/24 22:00 03/24/24 05:48 Gabapentin 100 Mg Capsule BY MOUTH 100 mg Q8HR [facility] Administration Hydroxyzine HCl 25 mg 03/22/24 10:26 03/23/24 21:08 Hydroxyzine Hcl 25 Mg Tablet PO 25 mg Q12H PRN Administration Itching Levothyroxine Sodium 75 mcg 03/15/24 09:00 03/24/24 05:48 Levothyroxine Sodium 75 Mcg Tablet PO 75 mcg DAILY@0630 [facility] Administration Megestrol Acetate 40 mg 03/16/24 13:00 03/24/24 08:14 Megestrol Acetate (*Chemo) 40 Mg Tablet PO 40 mg QID [facility] Administration Nonform Permethrin 1 each 03/16/24 18:00 03/23/24 18:19 Cream 5% TOPICAL 04/15/24 17:59 1 each WEEKLY@1800 [facility] Administration Trazodone HCl 100 mg 03/14/24 22:25 03/23/24 21:09 Trazodone Hcl 50 Mg Tablet PO 100 mg HS PRN Administration Insomnia Triamcinolone Acetonide 1 applic 03/15/24 17:00 03/24/24 08:16 Triamcinolone Acet 0.1% Cream 80 Gm Tube TOPICAL 1 applic BID [facility] Administration Radiology Results: ITS Impressions Chest X-Ray 03/23/24 08:35 IMPRESSION: 1. No acute cardiopulmonary disease. Labs Labs: Laboratory Results - last 24 hr 03/23/24 08:24 Lactic Acid 1.6 Quality VTE Prophylaxis VTE prophylaxis: pharmacologic ordered
[2024-03-24 10:34] LABS: Basophils Absolute Auto 0.06 K/mm3 (0.00-0.10); Basophils Percent Auto 0.3 % (0.0-1.0); Eosinophils Absolute Auto 0.03 K/mm3 (0.02-0.50); Eosinophils Percent Auto 0.2 % (1.0-6.0); Hematocrit 30.6 % (35.0-42.0); Hemoglobin 9.6 g/dL (11.7-13.8); Immature Granulocyte Absolute 0.22 K/mm3 (0.00-0.00); Immature Granulocyte Percent A 1.1 % (0.0-0.0); Lymphocytes Absolute Auto 1.44 K/mm3 (1.10-4.50); Lymphocytes Percent Auto 7.3 % (18.0-42.0); Mean Corpuscular HGB Conc 31.4 g/dL (32-36); Mean Corpuscular Hemoglobin 30.9 pg (27.0-31.0); Mean Corpuscular Volume 98.4 fL (78.0-102.0); Mean Platelet Volume 9.6 fl (9.2-11.8); Monocytes Absolute Auto 2.15 K/mm3 (0.10-0.90); Monocytes Percent Auto 10.9 % (2.0-11.0); Neutrophils Absolute Auto 15.79 K/mm3 (1.70-7.20); Neutrophils Percent Auto 80.2 % (50.0-70.0); Platelet Count Result 369 K/mm3 (150-420); Red Blood Count 3.11 M/mm3 (4.20-5.40); Red Cell Distribution Width 14.7 % (11.6-14.4); White Blood Count 19.7 K/mm3 (4.8-10.8)
[2024-03-24 11:02] LABS: Alanine Aminotransferase 11 U/L (14-59); Alkaline Phosphatase 78 U/L (46-116); Anion Gap 9 mmol/L (4-12); Aspartate Amino Transferase < 10 U/L (15-37); Bilirubin,Total 0.3 mg/dL (0.00-1.00); Blood Urea Nitrogen 20 mg/dL (7-18); Calcium 8.9 mg/dL (8.5-10.1); Carbon Dioxide 25 mmol/L (21-32); Chloride 100 mmol/L (98-108); Estimated CRCL calculation 38 ml/min; Estimated Glomerular Filt Rate 59; Glucose 191 mg/dL (70-99); Osmolality Calculated 285 mOsm/kg (285-295); Potassium 3.9 mmol/L (3.5-5.1); Sodium 134 mmol/L (136-145); Total Protein 6.5 g/dL (6.4-8.2)
--- NOTE | 2024-03-24 11:21 | PC.NURSE ---
PRELIMINARY BLOOD CULTURE NO GROWTH TO DATE
[2024-03-24] MEDS: DIVALPROEX SODIUM DR 250 MG TABEC 500 MG PO ×2 (11:30→21:50)
[2024-03-24 16:00] VITALS: BP 134/59; PULSE 95; RESP 20; TEMP 36.7; O2SAT 100
[2024-03-24] MEDS: ESCITALOPRAM OXALATE 10 MG TABLET PO (21:50)
[2024-03-24] MEDS: diphenhydrAMINE HCl CAP 25 MG CAPSULE PO (21:50)
[2024-03-24] MEDS: traZODone HCL 50 MG TABLET 100 MG PO (21:51)
[2024-03-24] MEDS: hydrOXYzine HCL 25 MG TABLET PO (21:51)
[2024-03-24 23:50] VITALS: BP 128/63; PULSE 94; RESP 16; TEMP 37.2; O2SAT 96
[2024-03-25] MEDS: GABAPENTIN 100 MG CAPSULE BY MOUTH ×3 (05:52→22:27)
[2024-03-25] MEDS: LEVOTHYROXINE SODIUM 75 MCG TABLET PO (05:52)
[2024-03-25 08:00] VITALS: BP 101/48; PULSE 102; RESP 18; TEMP 36.6; O2SAT 95
[2024-03-25] MEDS: ENOXAPARIN 40 MG/0.4 ML SYRINGE SUB-Q (08:35)
[2024-03-25] MEDS: busPIRone HCL 5 MG TABLET 15 MG PO ×3 (08:37→17:18)
[2024-03-25] MEDS: ATORVASTATIN 40 MG TABLET 80 MG PO (08:38)
[2024-03-25] MEDS: CYANOCOBALAMIN 500 MCG TABLET PO (08:38)
[2024-03-25] MEDS: MEGESTROL ACETATE (*CHEMO) 40 MG TABLET PO ×4 (08:38→20:46)
[2024-03-25] MEDS: CLOPIDOGREL BISULFATE 75 MG TABLET PO (08:39)
[2024-03-25] MEDS: FOLIC ACID 1 MG TABLET PO (08:39)
[2024-03-25] MEDS: AZITHROMYCIN 250 MG TABLET PO (08:39)
[2024-03-25] MEDS: ASCORBIC ACID 500 MG TABLET PO ×2 (08:39→17:19)
[2024-03-25] MEDS: ASPIRIN 81 MG ENTERIC TABLET PO (08:40)
[2024-03-25] MEDS: buPROPion HCL XL (24 HR) 150 MG TABCR PO (08:40)
[2024-03-25] MEDS: TRIAMCINOLONE ACET 0.1% CREAM 80 GM TUBE 1 APPLIC TOPICAL ×2 (08:40→17:20)
[2024-03-25] MEDS: DIVALPROEX SODIUM DR 250 MG TABEC 500 MG PO ×2 (10:23→22:27)
--- NOTE | 2024-03-25 10:31 | P.PNIM_ITS ---
Progress Note: A&P Assessment and Plan (1) Pneumonia: Qualifiers: Laterality: left Lung location: lower lobe of lung Pneumonia type: due to unspecified organism Qualified Code(s): J18.9 - Pneumonia, unspecified organism Code(s): J18.9 - Pneumonia, unspecified organism Status: Resolved Assessment and Plan: CXR left basilar infiltrates suspicious for pneumonia, normal WBC, afebrile, on room air but does have generalized weakness that has worsened over the last week * given Rocephin and azithromycin in the emergency department * transitioned to oral Augmentin * oxygen p.r.n. * incentive spirometer 03/16 * Continue Augmentin and Azithromycin * Continue IS while awake 03/17 * Continue current treatment plan 03/18 * No change RESOLVED 03/23 Repeat chest xray awaiting result WBC have increased to 23 unknown cause no s/s of infection (2) Rash: Code(s): R21 - Rash and other nonspecific skin eruption Status: Acute Assessment and Plan: * systemic rash upper and lower extremities chest and back * treat with prednisone added Benadryl for itching 03/16 * Rash all over body, BUE, BLE and inbetween fingers and toes * Could be a form of eczema, however can not rule out scabies. Left message for daughter to call back. * Continue prednisone * Will order permethrin 5% topical cream x1 now. * Start Atarax for itching * Will isolate for possible scabies 03/17 * Rash showing some improvement with permethrin 5% cream * Continue atarax for itching 03/18 * rash improving but still with mild itch * Stopped prednisone * can continue with cream * Bed bugs vs scabies vs systemic dermatitis 03/20 * No change to current treatment plan 03/23/2024 * Ivermectin given yesterday * Permethrin will be administered today * prn medication * skin looks a lot better 03/24 * Finished course of ivermectin and permethrin cream * rash much improved * Atarax for itching 03/25 * No change to current treatment plan (3) Generalized weakness: Code(s): R53.1 - Weakness Status: Acute Assessment and Plan: * likely secondary to pneumonia and failure to thrive * PT/OT for evaluation * family requesting SNF 03/16 * Continue PT and OT * Case management following for outpatient rehab needs 03/17 * Continue PT and OT * Will require placement 03/20 * No change * Case coordination working on placement 03/21 * Department of family services contacted as we are still unsuccessful in getting in touch with the daughter. Patient is unable to make decisions for herself. Case management following. * continue PT and OT 03/24 * continue PT and OT 03/25 * No change to current treatment plan (4) Moderate protein-calorie malnutrition: Code(s): E44.0 - Moderate protein-calorie malnutrition Status: Chronic Assessment and Plan: * secondary to failure to thrive * added protein shakes to each meal * regular diet * Resumed Megace 03/16 * encourage po intake * No change to current treatment plan 03/17 * No change (5) Adult failure to thrive: Code(s): R62.7 - Adult failure to thrive Status: Acute Assessment and Plan: patient has been worsening for the last year patient's passed around a year ago suffering from depression, bipolar disorder and anxiety * watermaster placement * see above 3 03/16 * Continue PT and OT * Case management working on placement 03/17 * No change 03/25 * Case coordination following. Unsafe discharge. Calls placed to family and department of family services. (6) Depression: Code(s): F32.9 - Major depressive disorder, single episode, unspecified Status: Chronic Assessment and Plan: * Resumed home medications BuSpar and Wellbutrin, citalopram 03/16 * No change (7) Anxiety: Code(s): F41.9 - Anxiety disorder, unspecified Status: Chronic Assessment and Plan: * Resumed home medications BuSpar and Wellbutrin 03/16 * No change (8) Bipolar disorder: Code(s): F31.9 - Bipolar disorder, unspecified Status: Chronic Assessment and Plan: * Resumed home medications divalproex 03/16 * No change (9) Hypothyroidism: Code(s): E03.9 - Hypothyroidism, unspecified Status: Chronic Assessment and Plan: * Resumed Levothyroxine 03/16 * Will check TSH level * Continue Synthroid 03/17 * TSH 0.89 (10) Hypotension: Code(s): I95.9 - Hypotension, unspecified Status: Acute Assessment and Plan: * resume patient's midodrine * monitor BP per unit protocol 03/16 * No change Time Spent With Patient Time with patient: 25 - 35 minutes Subjective Date/time seen: 03/25/24 10:31 Interval history: Interval history: (copy forward from chart) Patient is a 68-year-old female who was sent over to the emergency department by her primary care physician due to increased generalized weakness which has gotten increasingly worse over the last week. Patient is a poor historian some information was gathered via the medical chart as stated from emergency department family has requested patient be placed in long care facility unable to care for self anymore. patient with past medical history of bipolar diso rder, CHF, failure to thrive, and depression. initial findings in the emergency department did show a chest x-ray with right lower lobe infiltrate suggestive of pneumonia. Patient with normal WBC, afebrile no respiratory distress. Patient denied CP, SOB, Cough, dizziness, nausea, and vomiting overall states she just did not feel well and has had worsening weakness. upon assessment patient was found to also a systemic rash lower and upper extremities as well as her trunk back as reported from medical chart when she saw her primary patient's daughter reported this began about a month ago with no new medications or changes. patient was admitted to the medical unit for pneumonia, generalized weakness, and failure to thrive. labs were reviewed and unremarkable vital stable. Subjective: Patient denies any new complaints today. Labs reviewed. Review of Systems Review of Systems: All systems reviewed & are unremarkable except as noted in HPI and below Exam Narrative: General: failure to thrive, very malnourished Cardiac: Normal S1 and S2. No murmur, gallops or friction rubs, peripheral pulses intact. Respiratory: Lungs clear to auscultation, no adventitious lung sounds, currently on room air Gastrointestinal: soft, non-distended, non-tender, normoactive bowel sounds. : voiding without difficulty. Extremities: moves all extremities well, no edema Skin: rash much improved. Neuro: Alert Objective Data Vital Signs Vital Signs: Vital Signs - 24 hr 03/24/24 16:00 03/24/24 23:50 03/25/24 08:00 Temperature 98.1 F 99.0 F 97.8 F Pulse Rate 95 94 102 H Respiratory Rate 20 16 18 Blood Pressure 134/59 L 128/63 101/48 L Pulse Oximetry 100 96 95 Oxygen Delivery Room Air Room Air Room Air Intake/Output Intake/Output: Intake & Output 03/22/24 03/23/24 03/24/24 03/25/24 23:59 23:59 23:59 23:59 Intake Total 1247 1617 1654 790 Balance 1247 1617 1654 790 Meds/Results Medications: Active Medications Generic Name Dose Route Start Last Admin Trade Name Freq PRN Reason Stop Dose Admin Acetaminophen 650 mg 03/14/24 20:34 03/21/24 20:20 Acetaminophen 325 Mg Tablet PO 650 mg Q4H PRN Administration Mild Pain (1-3) or Fever Al Hydrox/Mg Hydrox/Simethicone 30 ml 03/14/24 20:34 Mag Hydrox/Al Hydrox/Simeth 30 Ml Udc PO QID PRN Dyspepsia Ascorbic Acid 500 mg 03/15/24 09:00 03/25/24 08:39 Ascorbic Acid 500 Mg Tablet PO 500 mg BID [facility] Administration Aspirin 81 mg 03/15/24 09:00 03/25/24 08:40 Aspirin 81 Mg Enteric Tablet PO 81 mg QAM [facility] Administration Atorvastatin Calcium 80 mg 03/15/24 09:00 03/25/24 08:38 Atorvastatin 40 Mg Tablet PO 80 mg DAILY [facility] Administration Azithromycin 250 mg 03/23/24 09:00 03/25/24 08:39 Azithromycin 250 Mg Tablet PO 03/26/24 09:01 250 mg DAILY [facility] Administration Bupropion HCl 150 mg 03/15/24 09:00 03/25/24 08:40 Bupropion Hcl Xl (24 Hr) 150 Mg Tabcr PO 150 mg DAILY [facility] Administration Buspirone HCl 15 mg 03/15/24 09:00 03/25/24 08:37 Buspirone Hcl 5 Mg Tablet PO 15 mg TID [facility] Administration Clopidogrel Bisulfate 75 mg 03/15/24 09:00 03/25/24 08:39 Clopidogrel Bisulfate 75 Mg Tablet PO 75 mg DAILY [facility] Administration Cyanocobalamin 500 mcg 03/15/24 09:00 03/25/24 08:38 Cyanocobalamin 500 Mcg Tablet PO 500 mcg QAM [facility] Administration Diphenhydramine HCl 25 mg 03/15/24 10:06 03/24/24 21:50 Diphenhydramine Hcl Cap 25 Mg Capsule PO 25 mg Q6H PRN Administration Itching Divalproex Sodium 500 mg 03/14/24 22:15 03/25/24 10:[address] 250 Mg Tabec PO 500 mg Q12H [facility] Administration Enoxaparin Sodium 40 mg 03/16/24 09:00 03/25/24 08:35 Enoxaparin 40 Mg/0.4 Ml Syringe SUB-Q 40 mg DAILY [facility] Administration Escitalopram Oxalate 10 mg 03/14/24 21:00 03/24/24 21:50 Escitalopram Oxalate 10 Mg Tablet PO 10 mg HS [facility] Administration Folic Acid 1 mg 03/15/24 09:00 03/25/24 08:39 Folic Acid 1 Mg Tablet PO 1 mg DAILY [facility] Administration Gabapentin 100 mg 03/14/24 22:00 03/25/24 05:52 Gabapentin 100 Mg Capsule BY MOUTH 100 mg Q8HR [facility] Administration Hydroxyzine HCl 25 mg 03/22/24 10:26 03/24/24 21:51 Hydroxyzine Hcl 25 Mg Tablet PO 25 mg Q12H PRN Administration Itching Levothyroxine Sodium 75 mcg 03/15/24 09:00 03/25/24 05:52 Levothyroxine Sodium 75 Mcg Tablet PO 75 mcg DAILY@0630 [facility] Administration Megestrol Acetate 40 mg 03/16/24 13:00 03/25/24 08:38 Megestrol Acetate (*Chemo) 40 Mg Tablet PO 40 mg QID [facility] Administration Nonform Permethrin 1 each 03/16/24 18:00 03/23/24 18:19 Cream 5% TOPICAL 04/15/24 17:59 1 each WEEKLY@1800 [facility] Administration Trazodone HCl 100 mg 03/14/24 22:25 03/24/24 21:51 Trazodone Hcl 50 Mg Tablet PO 100 mg HS PRN Administration Insomnia Triamcinolone Acetonide 1 applic 03/15/24 17:00 03/25/24 08:40 Triamcinolone Acet 0.1% Cream 80 Gm Tube TOPICAL 1 applic BID [facility] Administration Radiology Results: ITS Impressions Chest X-Ray 03/23/24 08:35 IMPRESSION: 1. No acute cardiopulmonary disease. Labs Labs: Laboratory Results - last 24 hr 03/24/24 10:27 WBC 19.7 H RBC 3.11 L Hgb 9.6 L Hct 30.6 L MCV 98.4 MCH 30.9 MCHC 31.4 L RDW 14.7 H Plt Count 369 MPV 9.6 Immature Gran % (Auto) 1.1 H Neut % (Auto) 80.2 H Lymph % (Auto) 7.3 L [place] % (Auto) 10.9 Eos % (Auto) 0.2 L Baso % (Auto) 0.3 Lymph # (Auto) 1.44 [place] # (Auto) 2.15 H Eos # (Auto) 0.03 Baso # (Auto) 0.06 Abs Immat Gran (auto) 0.22 H Absolute Neuts (auto) 15.79 H Absolute Nucleated RBC 0.00 Nucleated RBC % 0.0 Sodium 134 L Potassium 3.9 Chloride 100 Carbon Dioxide 25 Anion Gap 9 BUN 20 H Creatinine 0.94 Estim Creat Clear Calc 38 Estimated GFR 59 Glucose 191 H Calculated Osmolality 285 Calcium 8.9 Total Bilirubin 0.3 AST < 10 L ALT 11 L Alkaline Phosphatase 78 Total Protein 6.5 Albumin 2.0 L Quality VTE Prophylaxis VTE prophylaxis: pharmacologic ordered
[2024-03-25 16:00] VITALS: BP 125/67; PULSE 96; RESP 16; TEMP 36.4; O2SAT 96
[2024-03-25] MEDS: traZODone HCL 50 MG TABLET 100 MG PO (20:46)
[2024-03-25] MEDS: diphenhydrAMINE HCl CAP 25 MG CAPSULE PO (20:47)
[2024-03-25] MEDS: ESCITALOPRAM OXALATE 10 MG TABLET PO (20:47)
[2024-03-25] MEDS: hydrOXYzine HCL 25 MG TABLET PO (20:47)
[2024-03-26] VITALS: BP 136/93; PULSE 61; RESP 18; TEMP 36.2; O2SAT 95
[2024-03-26] MEDS: GABAPENTIN 100 MG CAPSULE BY MOUTH ×3 (05:51→21:36)
[2024-03-26] MEDS: LEVOTHYROXINE SODIUM 75 MCG TABLET PO (05:51)
[2024-03-26 08:00] VITALS: BP 116/58; PULSE 85; RESP 16; TEMP 36.2; O2SAT 94
[2024-03-26] MEDS: CYANOCOBALAMIN 500 MCG TABLET PO (08:30)
[2024-03-26] MEDS: ATORVASTATIN 40 MG TABLET 80 MG PO (08:30)
[2024-03-26] MEDS: buPROPion HCL XL (24 HR) 150 MG TABCR PO (08:31)
[2024-03-26] MEDS: MEGESTROL ACETATE (*CHEMO) 40 MG TABLET PO ×4 (08:31→21:34)
[2024-03-26] MEDS: AZITHROMYCIN 250 MG TABLET PO (08:32)
[2024-03-26] MEDS: ASCORBIC ACID 500 MG TABLET PO ×2 (08:32→17:36)
[2024-03-26] MEDS: CLOPIDOGREL BISULFATE 75 MG TABLET PO (08:32)
[2024-03-26] MEDS: busPIRone HCL 5 MG TABLET 15 MG PO ×3 (08:32→17:36)
[2024-03-26] MEDS: FOLIC ACID 1 MG TABLET PO (08:32)
[2024-03-26] MEDS: ENOXAPARIN 40 MG/0.4 ML SYRINGE SUB-Q (08:33)
[2024-03-26] MEDS: ASPIRIN 81 MG ENTERIC TABLET PO (08:33)
[2024-03-26] MEDS: TRIAMCINOLONE ACET 0.1% CREAM 80 GM TUBE 1 APPLIC TOPICAL ×2 (08:37→17:37)
--- NOTE | 2024-03-26 09:02 | P.PNIM_ITS ---
Progress Note: A&P Assessment and Plan (1) Pneumonia: Qualifiers: Laterality: left Lung location: lower lobe of lung Pneumonia type: due to unspecified organism Qualified Code(s): J18.9 - Pneumonia, unspecified organism Code(s): J18.9 - Pneumonia, unspecified organism Status: Resolved Assessment and Plan: CXR left basilar infiltrates suspicious for pneumonia, normal WBC, afebrile, on room air but does have generalized weakness that has worsened over the last week * given Rocephin and azithromycin in the emergency department * transitioned to oral Augmentin * oxygen p.r.n. * incentive spirometer 03/16 * Continue Augmentin and Azithromycin * Continue IS while awake 03/17 * Continue current treatment plan 03/18 * No change RESOLVED 03/23 Repeat chest xray awaiting result WBC have increased to 23 unknown cause no s/s of infection (2) Rash: Code(s): R21 - Rash and other nonspecific skin eruption Status: Acute Assessment and Plan: * systemic rash upper and lower extremities chest and back * treat with prednisone added Benadryl for itching 03/16 * Rash all over body, BUE, BLE and inbetween fingers and toes * Could be a form of eczema, however can not rule out scabies. Left message for daughter to call back. * Continue prednisone * Will order permethrin 5% topical cream x1 now. * Start Atarax for itching * Will isolate for possible scabies 03/17 * Rash showing some improvement with permethrin 5% cream * Continue atarax for itching 03/18 * rash improving but still with mild itch * Stopped prednisone * can continue with cream * Bed bugs vs scabies vs systemic dermatitis 03/20 * No change to current treatment plan 03/23/2024 * Ivermectin given yesterday * Permethrin will be administered today * prn medication * skin looks a lot better 03/24 * Finished course of ivermectin and permethrin cream * rash much improved * Atarax for itching 03/25 * No change to current treatment plan (3) Generalized weakness: Code(s): R53.1 - Weakness Status: Acute Assessment and Plan: * likely secondary to pneumonia and failure to thrive * PT/OT for evaluation * family requesting SNF 03/16 * Continue PT and OT * Case management following for outpatient rehab needs 03/17 * Continue PT and OT * Will require placement 03/20 * No change * Case coordination working on placement 03/21 * Department of family services contacted as we are still unsuccessful in getting in touch with the daughter. Patient is unable to make decisions for herself. Case management following. * continue PT and OT 03/24 * continue PT and OT 03/25 * No change to current treatment plan 03/26 * Nursing reporting decline in ADLs yesterday and today. She is now requiring a jo ann steady to get her up out of the bed and her balance is worse today * PT and OT orders placed for re-evaluation. (4) Moderate protein-calorie malnutrition: Code(s): E44.0 - Moderate protein-calorie malnutrition Status: Chronic Assessment and Plan: * secondary to failure to thrive * added protein shakes to each meal * regular diet * Resumed Megace 03/16 * encourage po intake * No change to current treatment plan 03/17 * No change (5) Adult failure to thrive: Code(s): R62.7 - Adult failure to thrive Status: Acute Assessment and Plan: patient has been worsening for the last year patient's passed around a year ago suffering from depression, bipolar disorder and anxiety * exterminator termite placement * see above 3 03/16 * Continue PT and OT * Case management working on placement 03/17 * No change 03/25 * Case coordination following. Unsafe discharge. Calls placed to family and department of family services. (6) Depression: Code(s): F32.9 - Major depressive disorder, single episode, unspecified Status: Chronic Assessment and Plan: * Resumed home medications BuSpar and Wellbutrin, citalopram 03/16 * No change (7) Anxiety: Code(s): F41.9 - Anxiety disorder, unspecified Status: Chronic Assessment and Plan: * Resumed home medications BuSpar and Wellbutrin 03/16 * No change (8) Bipolar disorder: Code(s): F31.9 - Bipolar disorder, unspecified Status: Chronic Assessment and Plan: * Resumed home medications divalproex 03/16 * No change (9) Hypothyroidism: Code(s): E03.9 - Hypothyroidism, unspecified Status: Chronic Assessment and Plan: * Resumed Levothyroxine 03/16 * Will check TSH level * Continue Synthroid 03/17 * TSH 0.89 (10) Hypotension: Code(s): I95.9 - Hypotension, unspecified Status: Acute Assessment and Plan: * resume patient's midodrine * monitor BP per unit protocol 03/16 * No change Time Spent With Patient Time with patient: less than 15 minutes Subjective Date/time seen: 03/26/24 09:02 Interval history: Interval history: (copy forward from chart) Patient is a 68-year-old female who was sent over to the emergency department by her primary care physician due to increased generalized weakness which has gotten increasingly worse over the last week. Patient is a poor historian some information was gathered via the medical chart as stated from emergency department family has requested patient be placed in long care facility unable to care for self anymore. patient with past medical history of bipolar disorder, CHF, failure to thrive, and depression. initial findings in the emergency department did show a chest x-ray with right lower lobe infiltrate suggestive of pneumonia. Patient with normal WBC, afebrile no respiratory distress. Patient denied CP, SOB, Cough, dizziness, nausea, and vomiting overall states she just did not feel well and has had worsening weakness. upon assessment patient was found to also a systemic rash lower and upper extremities as well as her trunk back as reported from medical chart when she saw her primary patient's daughter reported this began about a month ago with no new medications or changes. patient was admitted to the medical unit for pneumonia, generalized weakness, and failure to thrive. labs were reviewed and unremarkable vital stable. Subjective: Patient denies any new complaints today. Nursing reported that her ADL's have started to decline and that she requires jo ann steady to get in and out of the bed. Labs reviewed. Review of Systems Review of Systems: All systems reviewed & are unremarkable except as noted in HPI and below Exam Narrative: General: failure to thrive, very malnourished Cardiac: Normal S1 and S2. No murmur, gallops or friction rubs, peripheral pulses intact. Respiratory: Lungs clear to auscultation, no adventitious lung sounds, currently on room air Gastrointestinal: soft, non-distended, non-tender, normoactive bowel sounds. : voiding without difficulty. Extremities: moves all extremities well, no edema Skin: rash much improved. Neuro: Alert Objective Data Vital Signs Vital Signs: Vital Signs - 24 hr 03/25/24 16:00 03/26/24 00:00 Temperature 97.5 F L 97.1 F L Pulse Rate 96 61 Respiratory Rate 16 18 Blood Pressure 125/67 136/93 H Pulse Oximetry 96 95 Oxygen Delivery Room Air Room Air Intake/Output Intake/Output: Intake & Output 03/23/24 03/24/24 03/25/24 03/26/24 23:59 23:59 23:59 23:59 Intake Total 1617 1654 1620 400 Balance 1617 1654 1620 400 Meds/Results Medications: Active Medications Generic Name Dose Route Start Last Admin Trade Name Freq PRN Reason Stop Dose Admin Acetaminophen 650 mg 03/14/24 20:34 03/21/24 20:20 Acetaminophen 325 Mg Tablet PO 650 mg Q4H PRN Administration Mild Pain (1-3) or Fever Al Hydrox/Mg Hydrox/Simethicone 30 ml 03/14/24 20:34 Mag Hydrox/Al Hydrox/Simeth 30 Ml Udc PO QID PRN Dyspepsia Ascorbic Acid 500 mg 03/15/24 09:00 03/26/24 08:32 Ascorbic Acid 500 Mg Tablet PO 500 mg BID [facility] Administration Aspirin 81 mg 03/15/24 09:00 03/26/24 08:33 Aspirin 81 Mg Enteric Tablet PO 81 mg QAM [facility] Administration Atorvastatin Calcium 80 mg 03/15/24 09:00 03/26/24 08:30 Atorvastatin 40 Mg Tablet PO 80 mg DAILY [facility] Administration Azithromycin 250 mg 03/23/24 09:00 03/26/24 08:32 Azithromycin 250 Mg Tablet PO 03/26/24 09:01 250 mg DAILY [facility] Administration Bupropion HCl 150 mg 03/15/24 09:00 03/26/24 08:31 Bupropion Hcl Xl (24 Hr) 150 Mg Tabcr PO 150 mg DAILY [facility] Administration Buspirone HCl 15 mg 03/15/24 09:00 03/26/24 08:32 Buspirone Hcl 5 Mg Tablet PO 15 mg TID [facility] Administration Clopidogrel Bisulfate 75 mg 03/15/24 09:00 03/26/24 08:32 Clopidogrel Bisulfate 75 Mg Tablet PO 75 mg DAILY [facility] Administration Cyanocobalamin 500 mcg 03/15/24 09:00 03/26/24 08:30 Cyanocobalamin 500 Mcg Tablet PO 500 mcg QAM [facility] Administration Diphenhydramine HCl 25 mg 03/15/24 10:06 03/25/24 20:47 Diphenhydramine Hcl Cap 25 Mg Capsule PO 25 mg Q6H PRN Administration Itching Divalproex Sodium 500 mg 03/14/24 22:15 03/25/24 22:[address] 250 Mg Tabec PO 500 mg Q12H [facility] Administration Enoxaparin Sodium 40 mg 03/16/24 09:00 03/26/24 08:33 Enoxaparin 40 Mg/0.4 Ml Syringe SUB-Q 40 mg DAILY [facility] Administration Escitalopram Oxalate 10 mg 03/14/24 21:00 03/25/24 20:47 Escitalopram Oxalate 10 Mg Tablet PO 10 mg HS [facility] Administration Folic Acid 1 mg 03/15/24 09:00 03/26/24 08:32 Folic Acid 1 Mg Tablet PO 1 mg DAILY [facility] Administration Gabapentin 100 mg 03/14/24 22:00 03/26/24 05:51 Gabapentin 100 Mg Capsule BY MOUTH 100 mg Q8HR [facility] Administration Hydroxyzine HCl 25 mg 03/22/24 10:26 03/25/24 20:47 Hydroxyzine Hcl 25 Mg Tablet PO 25 mg Q12H PRN Administration Itching Levothyroxine Sodium 75 mcg 03/15/24 09:00 03/26/24 05:51 Levothyroxine Sodium 75 Mcg Tablet PO 75 mcg DAILY@0630 [facility] Administration Megestrol Acetate 40 mg 03/16/24 13:00 03/26/24 08:31 Megestrol Acetate (*Chemo) 40 Mg Tablet PO 40 mg QID [facility] Administration Nonform Permethrin 1 each 03/16/24 18:00 03/23/24 18:19 Cream 5% TOPICAL 04/15/24 17:59 1 each WEEKLY@1800 [facility] Administration Trazodone HCl 100 mg 03/14/24 22:25 03/25/24 20:46 Trazodone Hcl 50 Mg Tablet PO 100 mg HS PRN Administration Insomnia Triamcinolone Acetonide 1 applic 03/15/24 17:00 03/26/24 08:37 Triamcinolone Acet 0.1% Cream 80 Gm Tube TOPICAL 1 applic BID [facility] Administration Radiology Results: ITS Impressions Chest X-Ray 03/23/24 08:35 IMPRESSION: 1. No acute cardiopulmonary disease. Quality VTE Prophylaxis VTE prophylaxis: pharmacologic ordered
--- NOTE | 2024-03-26 09:02 | PM.IMPN ---
Progress Note: A&P Assessment and Plan (1) Pneumonia: Qualifiers: Laterality: left Lung location: lower lobe of lung Pneumonia type: due to unspecified organism Qualified Code(s): J18.9 - Pneumonia, unspecified organism Code(s): J18.9 - Pneumonia, unspecified organism Status: Resolved Assessment and Plan: CXR left basilar infiltrates suspicious for pneumonia, normal WBC, afebrile, on room air but does have generalized weakness that has worsened over the last week given Rocephin and azithromycin in the emergency department transitioned to oral Augmentin oxygen p.r.n. incentive spirometer 03/16 Continue Augmentin and Azithromycin Continue IS while awake 03/17 Continue current treatment plan 03/18 No change RESOLVED 03/23 Repeat chest xray awaiting result WBC have increased to 23 unknown cause no s/s of infection (2) Rash: Code(s): R21 - Rash and other nonspecific skin eruption Status: Acute Assessment and Plan: systemic rash upper and lower extremities chest and back treat with prednisone added Benadryl for itching 03/16 Rash all over body, BUE, BLE and inbetween fingers and toes Could be a form of eczema, however can not rule out scabies. Left message for daughter to call back. Continue prednisone Will order permethrin 5% topical cream x1 now. Start Atarax for itching Will isolate for possible scabies 03/17 Rash showing some improvement with permethrin 5% cream Continue atarax for itching 03/18 rash improving but still with mild itch Stopped prednisone can continue with cream Bed bugs vs scabies vs systemic dermatitis 03/20 No change to current treatment plan 03/23/2024 Ivermectin given yesterday Permethrin will be administered today prn medication skin looks a lot better 03/24 Finished course of ivermectin and permethrin cream rash much improved Atarax for itching 03/25 No change to current treatment plan (3) Generalized weakness: Code(s): R53.1 - Weakness Status: Acute Assessment and Plan: likely secondary to pneumonia and failure to thrive PT/OT for evaluation family requesting SNF 03/16 Continue PT and OT Case management following for outpatient rehab needs 03/17 Continue PT and OT Will require placement 03/20 No change Case coordination working on placement 03/21 Department of family services contacted as we are still unsuccessful in getting in touch with the daughter. Patient is unable to make decisions for herself. Case management following. continue PT and OT 03/24 continue PT and OT 03/25 No change to current treatment plan 03/26 Nursing reporting decline in ADLs yesterday and today. She is now requiring a jo ann steady to get her up out of the bed and her balance is worse today PT and OT orders placed for re-evaluation. (4) Moderate protein-calorie malnutrition: Code(s): E44.0 - Moderate protein-calorie malnutrition Status: Chronic Assessment and Plan: secondary to failure to thrive added protein shakes to each meal regular diet Resumed Megace 03/16 encourage po intake No change to current treatment plan 03/17 No change (5) Adult failure to thrive: Code(s): R62.7 - Adult failure to thrive Status: Acute Assessment and Plan: patient has been worsening for the last year patient's passed around a year ago suffering from depression, bipolar disorder and anxiety detention placement see above 3 03/16 Continue PT and OT Case management working on placement 03/17 No change 03/25 Case coordination following. Unsafe discharge. Calls placed to family and department of family services. (6) Depression: Code(s): F32.9 - Major depressive disorder, single episode, unspecified Status: Chronic Assessment and Plan: Resumed home medications BuSpar and Wellbutrin, citalopram 03/16 No change (7) Anxiety: Code(s): F41.9 - Anxiety disorder, unspecified Status: Chronic Assessment and Plan: Resumed home medications BuSpar and Wellbutrin 03/16 No change (8) Bipolar disorder: Code(s): F31.9 - Bipolar disorder, unspecified Status: Chronic Assessment and Plan: Resumed home medications divalproex 03/16 No change (9) Hypothyroidism: Code(s): E03.9 - Hypothyroidism, unspecified Status: Chronic Assessment and Plan: Resumed Levothyroxine 03/16 Will check TSH level Continue Synthroid 03/17 TSH 0.89 (10) Hypotension: Code(s): I95.9 - Hypotension, unspecified Status: Acute Assessment and Plan: resume patient's midodrine monitor BP per unit protocol 03/16 No change Time Spent With Patient Time with patient: less than 15 minutes Subjective Date/time seen: 03/26/24 09:02 Interval history: Interval history: (copy forward from chart) Patient is a 68-year-old female who was sent over to the emergency department by her primary care physician due to increased generalized weakness which has gotten increasingly worse over the last week. Patient is a poor historian some information was gathered via the medical chart as stated from emergency department family has requested patient be placed in long care facility unable to care for self anymore. patient with past medical history of bipolar disorder, CHF, failure to thrive, and depression. initial findings in the emergency department did show a chest x-ray with right lower lobe infiltrate suggestive of pneumonia. Patient with normal WBC, afebrile no respiratory distress. Patient denied CP, SOB, Cough, dizziness, nausea, and vomiting overall states she just did not feel well and has had worsening weakness. upon assessment patient was found to also a systemic rash lower and upper extremities as well as her trunk back as reported from medical chart when she saw her primary patient's daughter reported this began about a month ago with no new medications or changes. patient was admitted to the medical unit for pneumonia, generalized weakness, and failure to thrive. labs were reviewed and unremarkable vital stable. Subjective: Patient denies any new complaints today. Nursing reported that her ADL's have started to decline and that she requires jo ann steady to get in and out of the bed. Labs reviewed. Review of Systems Review of Systems: All systems reviewed & are unremarkable except as noted in HPI and below Exam Narrative: General: failure to thrive, very malnourished Cardiac: Normal S1 and S2. No murmur, gallops or friction rubs, peripheral pulses intact. Respiratory: Lungs clear to auscultation, no adventitious lung sounds, currently on room air Gastrointestinal: soft, non-distended, non-tender, normoactive bowel sounds. : voiding without difficulty. Extremities: moves all extremities well, no edema Skin: rash much improved. Neuro: Alert Objective Data Vital Signs Vital Signs: Vital Signs - 24 hr 03/25/24 16:00 03/26/24 00:00 Temperature 97.5 F L 97.1 F L Pulse Rate 96 61 Respiratory Rate 16 18 Blood Pressure 125/67 136/93 H Pulse Oximetry 96 95 Oxygen Delivery Room Air Room Air Intake/Output Intake/Output: Intake & Output 03/23/24 03/24/24 03/25/24/28/25 23:59 23:59 23:59 23:59 Intake Total 1617 1654 1620 400 Balance 1617 1654 1620 400 Meds/Results Medications: Active Medications Generic Name Dose Route Start Last Admin Trade Name Freq PRN Reason Stop Dose Admin Acetaminophen 650 mg 03/14/24 20:34 03/21/24 20:20 Acetaminophen 325 Mg Tablet PO 650 mg Q4H PRN Administration Mild Pain (1-3) or Fever Al Hydrox/Mg Hydrox/Simethicone 30 ml 03/14/24 20:34 Mag Hydrox/Al Hydrox/Simeth 30 Ml Udc PO QID PRN Dyspepsia Ascorbic Acid 500 mg 03/15/24 09:00 03/26/24 08:32 Ascorbic Acid 500 Mg Tablet PO 500 mg BID MINH Administration Aspirin 81 mg 03/15/24 09:00 03/26/24 08:33 Aspirin 81 Mg Enteric Tablet PO 81 mg QAM MINH Administration Atorvastatin Calcium 80 mg 03/15/24 09:00 03/26/24 08:30 Atorvastatin 40 Mg Tablet PO 80 mg DAILY MINH Administration Azithromycin 250 mg 03/23/24 09:00 03/26/24 08:32 Azithromycin 250 Mg Tablet PO 03/26/24 09:01 250 mg DAILY MINH Administration Bupropion HCl 150 mg 03/15/24 09:00 03/26/24 08:31 Bupropion Hcl Xl (24 Hr) 150 Mg Tabcr PO 150 mg DAILY MINH Administration Buspirone HCl 15 mg 03/15/24 09:00 03/26/24 08:32 Buspirone Hcl 5 Mg Tablet PO 15 mg TID MINH Administration Clopidogrel Bisulfate 75 mg 03/15/24 09:00 03/26/24 08:32 Clopidogrel Bisulfate 75 Mg Tablet PO 75 mg DAILY MINH Administration Cyanocobalamin 500 mcg 03/15/24 09:00 03/26/24 08:30 Cyanocobalamin 500 Mcg Tablet PO 500 mcg QAM MINH Administration Diphenhydramine HCl 25 mg 03/15/24 10:06 03/25/24 20:47 Diphenhydramine Hcl Cap 25 Mg Capsule PO 25 mg Q6H PRN Administration Itching Divalproex Sodium 500 mg 03/14/24 22:15 03/25/24 22:[address] 250 Mg Tabec PO 500 mg Q12H MINH Administration Enoxaparin Sodium 40 mg 03/16/24 09:00 03/26/24 08:33 Enoxaparin 40 Mg/0.4 Ml Syringe SUB-Q 40 mg DAILY MINH Administration Escitalopram Oxalate 10 mg 03/14/24 21:00 03/25/24 20:47 Escitalopram Oxalate 10 Mg Tablet PO 10 mg HS MINH Administration Folic Acid 1 mg 03/15/24 09:00 03/26/24 08:32 Folic Acid 1 Mg Tablet PO 1 mg DAILY MINH Administration Gabapentin 100 mg 03/14/24 22:00 03/26/24 05:51 Gabapentin 100 Mg Capsule BY MOUTH 100 mg Q8HR MINH Administration Hydroxyzine HCl 25 mg 03/22/24 10:26 03/25/24 20:47 Hydroxyzine Hcl 25 Mg Tablet PO 25 mg Q12H PRN Administration Itching Levothyroxine Sodium 75 mcg 03/15/24 09:00 03/26/24 05:51 Levothyroxine Sodium 75 Mcg Tablet PO 75 mcg DAILY@0630 MINH Administration Megestrol Acetate 40 mg 03/16/24 13:00 03/26/24 08:31 Megestrol Acetate (*Chemo) 40 Mg Tablet PO 40 mg QID MINH Administration Nonform Permethrin 1 each 03/16/24 18:00 03/23/24 18:19 Cream 5% TOPICAL 04/15/24 17:59 1 each WEEKLY@1800 MINH Administration Trazodone HCl 100 mg 03/14/24 22:25 03/25/24 20:46 Trazodone Hcl 50 Mg Tablet PO 100 mg HS PRN Administration Insomnia Triamcinolone Acetonide 1 applic 03/15/24 17:00 03/26/24 08:37 Triamcinolone Acet 0.1% Cream 80 Gm Tube TOPICAL 1 applic BID MINH Administration Radiology Results: ITS Impressions Chest X-Ray 03/23/24 08:35 IMPRESSION: 1. No acute cardiopulmonary disease. Quality VTE Prophylaxis VTE prophylaxis: pharmacologic ordered
[2024-03-26] MEDS: DIVALPROEX SODIUM DR 250 MG TABEC 500 MG PO ×2 (10:25→21:36)
[2024-03-26 16:00] VITALS: BP 110/55; PULSE 95; RESP 16; TEMP 36.3; O2SAT 94
[2024-03-26] MEDS: hydrOXYzine HCL 25 MG TABLET PO (19:28)
[2024-03-26] MEDS: traZODone HCL 50 MG TABLET 100 MG PO (21:34)
[2024-03-26] MEDS: diphenhydrAMINE HCl CAP 25 MG CAPSULE PO (21:34)
[2024-03-26] MEDS: ESCITALOPRAM OXALATE 10 MG TABLET PO (21:34)
[2024-03-27] VITALS: BP 130/60; PULSE 88; RESP 16; TEMP 36.6; O2SAT 97
[2024-03-27] MEDS: LEVOTHYROXINE SODIUM 75 MCG TABLET PO (06:29)
[2024-03-27] MEDS: GABAPENTIN 100 MG CAPSULE BY MOUTH ×3 (06:29→21:36)
[2024-03-27] MEDS: hydrOXYzine HCL 25 MG TABLET PO ×2 (07:12→21:36)
[2024-03-27 08:00] VITALS: BP 90/50; PULSE 76; RESP 20; TEMP 36.2; O2SAT 96
[2024-03-27] MEDS: ATORVASTATIN 40 MG TABLET 80 MG PO (08:19)
[2024-03-27] MEDS: FOLIC ACID 1 MG TABLET PO (08:19)
[2024-03-27] MEDS: buPROPion HCL XL (24 HR) 150 MG TABCR PO (08:19)
[2024-03-27] MEDS: CLOPIDOGREL BISULFATE 75 MG TABLET PO (08:19)
[2024-03-27] MEDS: ASPIRIN 81 MG ENTERIC TABLET PO (08:19)
[2024-03-27] MEDS: MEGESTROL ACETATE (*CHEMO) 40 MG TABLET PO ×4 (08:19→21:36)
[2024-03-27] MEDS: CYANOCOBALAMIN 500 MCG TABLET PO (08:19)
[2024-03-27] MEDS: ASCORBIC ACID 500 MG TABLET PO ×2 (08:19→17:45)
[2024-03-27] MEDS: busPIRone HCL 5 MG TABLET 15 MG PO ×3 (08:19→17:45)
[2024-03-27] MEDS: ENOXAPARIN 40 MG/0.4 ML SYRINGE SUB-Q (08:19)
[2024-03-27] MEDS: TRIAMCINOLONE ACET 0.1% CREAM 80 GM TUBE 1 APPLIC TOPICAL ×2 (08:20→20:22)
--- NOTE | 2024-03-27 08:51 | P.PNIM_ITS ---
Progress Note: A&P Assessment and Plan (1) Rash: Code(s): R21 - Rash and other nonspecific skin eruption Status: Acute Assessment and Plan: * systemic rash upper and lower extremities chest and back * treat with prednisone added Benadryl for itching 03/16 * Rash all over body, BUE, BLE and inbetween fingers and toes * Could be a form of eczema, however can not rule out scabies. Left message for daughter to call back. * Continue prednisone * Will order permethrin 5% topical cream x1 now. * Start Atarax for itching * Will isolate for possible scabies 03/17 * Rash showing some improvement with permethrin 5% cream * Continue atarax for itching 03/18 * rash improving but still with mild itch * Stopped prednisone * can continue with cream * Bed bugs vs scabies vs systemic dermatitis 03/20 * No change to current treatment plan 03/23/2024 * Ivermectin given yesterday * Permethrin will be administered today * prn medication * skin looks a lot better 03/24 * Finished course of ivermectin and permethrin cream * rash much improved * Atarax for itching 03/25 * No change to current treatment plan 03/27: * Still with mild itch (2) Pneumonia: Qualifiers: Laterality: left Lung location: lower lobe of lung Pneumonia type: due to unspecified organism Qualified Code(s): J18.9 - Pneumonia, unspecified organism Code(s): J18.9 - Pneumonia, unspecified organism Status: Resolved Assessment and Plan: CXR left basilar infiltrates suspicious for pneumonia, normal WBC, afebrile, on room air but does have generalized weakness that has worsened over the last week * given Rocephin and azithromycin in the emergency department * transitioned to oral Augmentin * oxygen p.r.n. * incentive spirometer 03/16 * Continue Augmentin and Azithromycin * Continue IS while awake 03/17 * Continue current treatment plan 03/18 * No change RESOLVED 03/23 Repeat chest xray awaiting result WBC have increased to 23 unknown cause no s/s of infection 03/27: * WBC had trended down likely secondary to medication (3) Generalized weakness: Code(s): R53.1 - Weakness Status: Acute Assessment and Plan: * likely secondary to pneumonia and failure to thrive * PT/OT for evaluation * family requesting SNF 03/16 * Continue PT and OT * Case management following for outpatient rehab needs 03/17 * Continue PT and OT * Will require placement 03/20 * No change * Case coordination working on placement 03/21 * Department of family services contacted as we are still unsuccessful in getting in touch with the daughter. Patient is unable to make decisions for herself. Case management following. * continue PT and OT 03/24 * continue PT and OT 03/25 * No change to current treatment plan 03/26 * Nursing reporting decline in ADLs yesterday and today. She is now requiring a jo ann steady to get her up out of the bed and her balance is worse today * PT and OT orders placed for re-evaluation. 03/27: * PT/OT pending (4) Moderate protein-calorie malnutrition: Code(s): E44.0 - Moderate protein-calorie malnutrition Status: Chronic Assessment and Plan: * secondary to failure to thrive * added protein shakes to each meal * regular diet * Resumed Megace 03/16 * encourage po intake * No change to current treatment plan 03/17 * No change (5) Adult failure to thrive: Code(s): R62.7 - Adult failure to thrive Status: Acute Assessment and Plan: patient has been worsening for the last year patient's passed around a year ago suffering from depression, bipolar disorder and anxiety * senior care placement * see above 3 03/16 * Continue PT and OT * Case management working on placement 03/17 * No change 03/25 * Case coordination following. Unsafe discharge. Calls placed to family and department of family services. (6) Depression: Code(s): F32.9 - Major depressive disorder, single episode, unspecified Status: Chronic Assessment and Plan: * Resumed home medications BuSpar and Wellbutrin, citalopram 03/16 * No change (7) Anxiety: Code(s): F41.9 - Anxiety disorder, unspecified Status: Chronic Assessment and Plan: * Resumed home medications BuSpar and Wellbutrin 03/16 * No change (8) Bipolar disorder: Code(s): F31.9 - Bipolar disorder, unspecified Status: Chronic Assessment and Plan: * Resumed home medications divalproex 03/16 * No change (9) Hypothyroidism: Code(s): E03.9 - Hypothyroidism, unspecified Status: Chronic Assessment and Plan: * Resumed Levothyroxine 03/16 * Will check TSH level * Continue Synthroid 03/17 * TSH 0.89 (10) Hypotension: Code(s): I95.9 - Hypotension, unspecified Status: Acute Assessment and Plan: * resume patient's midodrine * monitor BP per unit protocol 03/16 * No change Plan Code status: Full code per patient DVT prophylaxis: Lovenox Stress ulcer prophylaxis: NA PT/OT notes: PT/OT re-evaluation Disposition: Patient was admitted to the medical unit further evaluation and treatment of pneumonia and generalized weakness. Patient is medically cleared for discharge however we do no t have a safe discharge at this time. Adult protective services was notified and investigating. Currently unable to go to a SNF due to financial issues. Time Spent With Patient Time with patient: 15 - 25 minutes Subjective Date/time seen: 03/27/24 08:51 Interval history: Patient is a 68-year-old female who was admitted to the medical unit for further evaluation and treatment generalized weakness, pneumonia, and failure to thrive 03/27/2024: Assumed Care Patient up in chair has no complaints today still with mild itching. Medically stable but not a safe discharge this is currently a adult service issue. She is eating and appears in no acute distress but with continue weakness. Review of Systems Review of Systems: All systems reviewed & are unremarkable except as noted in HPI and below Exam Narrative: General: failure to thrive, very malnourished Cardiac: Normal S1 and S2. No murmur, gallops or friction rubs, peripheral pulses intact. Respiratory: Lungs clear to auscultation, no adventitious lung sounds, currently on room air Gastrointestinal: soft, non-distended, non-tender, normoactive bowel sounds. : voiding without difficulty. Extremities: moves all extremities well, no edema Skin: rash much improved. Neuro: Alert Objective Data Vital Signs Vital Signs: Vital Signs - 24 hr 03/26/24 16:00 03/27/24 00:00 Temperature 97.4 F L 97.9 F Pulse Rate 95 88 Respiratory Rate 16 16 Blood Pressure 110/55 L 130/60 Pulse Oximetry 94 97 Oxygen Delivery Room Air Room Air Intake/Output Intake/Output: Intake & Output 03/24/24 03/25/24 03/26/24 03/27/24 23:59 23:59 23:59 23:59 Intake Total 1654 1620 2090 220 Balance 1654 1620 2090 220 Meds/Results Medications: Active Medications Generic Name Dose Route Start Last Admin Trade Name Freq PRN Reason Stop Dose Admin Acetaminophen 650 mg 03/14/24 20:34 03/21/24 20:20 Acetaminophen 325 Mg Tablet PO 650 mg Q4H PRN Administration Mild Pain (1-3) or Fever Al Hydrox/Mg Hydrox/Simethicone 30 ml 03/14/24 20:34 Mag Hydrox/Al Hydrox/Simeth 30 Ml Udc PO QID PRN Dyspepsia Ascorbic Acid 500 mg 03/15/24 09:00 03/27/24 08:19 Ascorbic Acid 500 Mg Tablet PO 500 mg BID MINH Administration Aspirin 81 mg 03/15/24 09:00 03/27/24 08:19 Aspirin 81 Mg Enteric Tablet PO 81 mg QAM MINH Administration Atorvastatin Calcium 80 mg 03/15/24 09:00 03/27/24 08:19 Atorvastatin 40 Mg Tablet PO 80 mg DAILY MINH Administration Bupropion HCl 150 mg 03/15/24 09:00 03/27/24 08:19 Bupropion Hcl Xl (24 Hr) 150 Mg Tabcr PO 150 mg DAILY MINH Administration Buspirone HCl 15 mg 03/15/24 09:00 03/27/24 08:19 Buspirone Hcl 5 Mg Tablet PO 15 mg TID MINH Administration Clopidogrel Bisulfate 75 mg 03/15/24 09:00 03/27/24 08:19 Clopidogrel Bisulfate 75 Mg Tablet PO 75 mg DAILY MINH Administration Cyanocobalamin 500 mcg 03/15/24 09:00 03/27/24 08:19 Cyanocobalamin 500 Mcg Tablet PO 500 mcg QAM MINH Administration Diphenhydramine HCl 25 mg 03/15/24 10:06 03/26/24 21:34 Diphenhydramine Hcl Cap 25 Mg Capsule PO 25 mg Q6H PRN Administration Itching Divalproex Sodium 500 mg 03/14/24 22:15 03/26/24 21:[address] 250 Mg Tabec PO 500 mg Q12H MINH Administration Enoxaparin Sodium 40 mg 03/16/24 09:00 03/27/24 08:19 Enoxaparin 40 Mg/0.4 Ml Syringe SUB-Q 40 mg DAILY MINH Administration Escitalopram Oxalate 10 mg 03/14/24 21:00 03/26/24 21:34 Escitalopram Oxalate 10 Mg Tablet PO 10 mg HS MINH Administration Folic Acid 1 mg 03/15/24 09:00 03/27/24 08:19 Folic Acid 1 Mg Tablet PO 1 mg DAILY MINH Administration Gabapentin 100 mg 03/14/24 22:00 03/27/24 06:29 Gabapentin 100 Mg Capsule BY MOUTH 100 mg Q8HR MINH Administration Hydroxyzine HCl 25 mg 03/22/24 10:26 03/27/24 07:12 Hydroxyzine Hcl 25 Mg Tablet PO 25 mg Q12H PRN Administration Itching Levothyroxine Sodium 75 mcg 03/15/24 09:00 03/27/24 06:29 Levothyroxine Sodium 75 Mcg Tablet PO 75 mcg DAILY@0630 MINH Administration Megestrol Acetate 40 mg 03/16/24 13:00 03/27/24 08:19 Megestrol Acetate (*Chemo) 40 Mg Tablet PO 40 mg QID MINH Administration Nonform Permethrin 1 each 03/16/24 18:00 03/23/24 18:19 Cream 5% TOPICAL 04/15/24 17:59 1 each WEEKLY@1800 MINH Administration Trazodone HCl 100 mg 03/14/24 22:25 03/26/24 21:34 Trazodone Hcl 50 Mg Tablet PO 100 mg HS PRN Administration Insomnia Triamcinolone Acetonide 1 applic 03/15/24 17:00 03/27/24 08:20 Triamcinolone Acet 0.1% Cream 80 Gm Tube TOPICAL 1 applic BID MINH Administration Radiology Results: ITS Impressions Chest X-Ray 03/23/24 08:35 IMPRESSION: 1. No acute cardiopulmonary disease. Quality VTE Prophylaxis VTE prophylaxis: pharmacologic ordered -Patient's previous records reviewed on admission -ER notes reviewed in detail on admission -discussed all findings and current treatment plan with patient/Family/POA -Consultations reviewed for recommendations -Patient's disposition for safe discharge discussed with classification case manager Dictation performed by [employer] direct speech recognition software, therefore youth support worker variants and typographical errors may occur. Hospitalist MIPS Advance Care Plan I have confirmed that the patient's Advanced Care Plan is present, code status is documented, or surrogate decision maker is listed in patient medical record.: Yes Medication Reconciliation I have utilized all available resources to obtain, update and review the patients current medications (includes all prescriptions, OTC, herbals, cannabis, and nutritional supplements).: Yes The patient is not eligible for med reconciliation; the patient is in a emergent medical situation where delaying treatment would jeopardize the patients h ealth.: No
--- NOTE | 2024-03-27 08:51 | PM.IMPN ---
Progress Note: A&P Assessment and Plan (1) Rash: Code(s): R21 - Rash and other nonspecific skin eruption Status: Acute Assessment and Plan: systemic rash upper and lower extremities chest and back treat with prednisone added Benadryl for itching 03/16 Rash all over body, BUE, BLE and inbetween fingers and toes Could be a form of eczema, however can not rule out scabies. Left message for daughter to call back. Continue prednisone Will order permethrin 5% topical cream x1 now. Start Atarax for itching Will isolate for possible scabies 03/17 Rash showing some improvement with permethrin 5% cream Continue atarax for itching 03/18 rash improving but still with mild itch Stopped prednisone can continue with cream Bed bugs vs scabies vs systemic dermatitis 03/20 No change to current treatment plan 03/23/2024 Ivermectin given yesterday Permethrin will be administered today prn medication skin looks a lot better 03/24 Finished course of ivermectin and permethrin cream rash much improved Atarax for itching 03/25 No change to current treatment plan 03/27: Still with mild itch (2) Pneumonia: Qualifiers: Laterality: left Lung location: lower lobe of lung Pneumonia type: due to unspecified organism Qualified Code(s): J18.9 - Pneumonia, unspecified organism Code(s): J18.9 - Pneumonia, unspecified organism Status: Resolved Assessment and Plan: CXR left basilar infiltrates suspicious for pneumonia, normal WBC, afebrile, on room air but does have generalized weakness that has worsened over the last week given Rocephin and azithromycin in the emergency department transitioned to oral Augmentin oxygen p.r.n. incentive spirometer 03/16 Continue Augmentin and Azithromycin Continue IS while awake 03/17 Continue current treatment plan 03/18 No change RESOLVED 03/23 Repeat chest xray awaiting result WBC have increased to 23 unknown cause no s/s of infection 03/27: WBC had trended down likely secondary to medication (3) Generalized weakness: Code(s): R53.1 - Weakness Status: Acute Assessment and Plan: likely secondary to pneumonia and failure to thrive PT/OT for evaluation family requesting SNF 03/16 Continue PT and OT Case management following for outpatient rehab needs 03/17 Continue PT and OT Will require placement 03/20 No change Case coordination working on placement 03/21 Department of family services contacted as we are still unsuccessful in getting in touch with the daughter. Patient is unable to make decisions for herself. Case management following. continue PT and OT 03/24 continue PT and OT 03/25 No change to current treatment plan 03/26 Nursing reporting decline in ADLs yesterday and today. She is now requiring a jo ann steady to get her up out of the bed and her balance is worse today PT and OT orders placed for re-evaluation. 03/27: PT/OT pending (4) Moderate protein-calorie malnutrition: Code(s): E44.0 - Moderate protein-calorie malnutrition Status: Chronic Assessment and Plan: secondary to failure to thrive added protein shakes to each meal regular diet Resumed Megace 03/16 encourage po intake No change to current treatment plan 03/17 No change (5) Adult failure to thrive: Code(s): R62.7 - Adult failure to thrive Status: Acute Assessment and Plan: patient has been worsening for the last year patient's passed around a year ago suffering from depression, bipolar disorder and anxiety rn long term care placement see above 3 03/16 Continue PT and OT Case management working on placement 03/17 No change 03/25 Case coordination following. Unsafe discharge. Calls placed to family and department of family services. (6) Depression: Code(s): F32.9 - Major depressive disorder, single episode, unspecified Status: Chronic Assessment and Plan: Resumed home medications BuSpar and Wellbutrin, citalopram 03/16 No change (7) Anxiety: Code(s): F41.9 - Anxiety disorder, unspecified Status: Chronic Assessment and Plan: Resumed home medications BuSpar and Wellbutrin 03/16 No change (8) Bipolar disorder: Code(s): F31.9 - Bipolar disorder, unspecified Status: Chronic Assessment and Plan: Resumed home medications divalproex 03/16 No change (9) Hypothyroidism: Code(s): E03.9 - Hypothyroidism, unspecified Status: Chronic Assessment and Plan: Resumed Levothyroxine 03/16 Will check TSH level Continue Synthroid 03/17 TSH 0.89 (10) Hypotension: Code(s): I95.9 - Hypotension, unspecified Status: Acute Assessment and Plan: resume patient's midodrine monitor BP per unit protocol 03/16 No change Plan Code status: Full code per patient DVT prophylaxis: Lovenox Stress ulcer prophylaxis: NA PT/OT notes: PT/OT re-evaluation Disposition: Patient was admitted to the medical unit further evaluation and treatment of pneumonia and generalized weakness. Patient is medically cleared for discharge however we do no t have a safe discharge at this time. Adult protective services was notified and investigating. Currently unable to go to a SNF due to financial issues. Time Spent With Patient Time with patient: 15 - 25 minutes Subjective Date/time seen: 03/27/24 08:51 Interval history: Patient is a 68-year-old female who was admitted to the medical unit for further evaluation and treatment generalized weakness, pneumonia, and failure to thrive 03/27/2024: Assumed Care Patient up in chair has no complaints today still with mild itching. Medically stable but not a safe discharge this is currently a adult service issue. She is eating and appears in no acute distress but with continue weakness. Review of Systems Review of Systems: All systems reviewed & are unremarkable except as noted in HPI and below Exam Narrative: General: failure to thrive, very malnourished Cardiac: Normal S1 and S2. No murmur, gallops or friction rubs, peripheral pulses intact. Respiratory: Lungs clear to auscultation, no adventitious lung sounds, currently on room air Gastrointestinal: soft, non-distended, non-tender, normoactive bowel sounds. : voiding without difficulty. Extremities: moves all extremities well, no edema Skin: rash much improved. Neuro: Alert Objective Data Vital Signs Vital Signs: Vital Signs - 24 hr 03/26/24 16:00 03/27/24 00:00 Temperature 97.4 F L 97.9 F Pulse Rate 95 88 Respiratory Rate 16 16 Blood Pressure 110/55 L 130/60 Pulse Oximetry 94 97 Oxygen Delivery Room Air Room Air Intake/Output Intake/Output: Intake & Output 03/24/24 03/25/24 03/26/24 03/27/24 23:59 23:59 23:59 23:59 Intake Total 1654 1620 2090 220 Balance 1654 1620 2090 220 Meds/Results Medications: Active Medications Generic Name Dose Route Start Last Admin Trade Name Freq PRN Reason Stop Dose Admin Acetaminophen 650 mg 03/14/24 20:34 03/21/24 20:20 Acetaminophen 325 Mg Tablet PO 650 mg Q4H PRN Administration Mild Pain (1-3) or Fever Al Hydrox/Mg Hydrox/Simethicone 30 ml 03/14/24 20:34 Mag Hydrox/Al Hydrox/Simeth 30 Ml Udc PO QID PRN Dyspepsia Ascorbic Acid 500 mg 03/15/24 09:00 03/27/24 08:19 Ascorbic Acid 500 Mg Tablet PO 500 mg BID [facility] Administration Aspirin 81 mg 03/15/24 09:00 03/27/24 08:19 Aspirin 81 Mg Enteric Tablet PO 81 mg QAM [facility] Administration Atorvastatin Calcium 80 mg 03/15/24 09:00 03/27/24 08:19 Atorvastatin 40 Mg Tablet PO 80 mg DAILY [facility] Administration Bupropion HCl 150 mg 03/15/24 09:00 03/27/24 08:19 Bupropion Hcl Xl (24 Hr) 150 Mg Tabcr PO 150 mg DAILY [facility] Administration Buspirone HCl 15 mg 03/15/24 09:00 03/27/24 08:19 Buspirone Hcl 5 Mg Tablet PO 15 mg TID [facility] Administration Clopidogrel Bisulfate 75 mg 03/15/24 09:00 03/27/24 08:19 Clopidogrel Bisulfate 75 Mg Tablet PO 75 mg DAILY [facility] Administration Cyanocobalamin 500 mcg 03/15/24 09:00 03/27/24 08:19 Cyanocobalamin 500 Mcg Tablet PO 500 mcg QAM [facility] Administration Diphenhydramine HCl 25 mg 03/15/24 10:06 03/26/24 21:34 Diphenhydramine Hcl Cap 25 Mg Capsule PO 25 mg Q6H PRN Administration Itching Divalproex Sodium 500 mg 03/14/24 22:15 03/26/24 21:[address] 250 Mg Tabec PO 500 mg Q12H [facility] Administration Enoxaparin Sodium 40 mg 03/16/24 09:00 03/27/24 08:19 Enoxaparin 40 Mg/0.4 Ml Syringe SUB-Q 40 mg DAILY [facility] Administration Escitalopram Oxalate 10 mg 03/14/24 21:00 03/26/24 21:34 Escitalopram Oxalate 10 Mg Tablet PO 10 mg HS [facility] Administration Folic Acid 1 mg 03/15/24 09:00 03/27/24 08:19 Folic Acid 1 Mg Tablet PO 1 mg DAILY [facility] Administration Gabapentin 100 mg 03/14/24 22:00 03/27/24 06:29 Gabapentin 100 Mg Capsule BY MOUTH 100 mg Q8HR [facility] Administration Hydroxyzine HCl 25 mg 03/22/24 10:26 03/27/24 07:12 Hydroxyzine Hcl 25 Mg Tablet PO 25 mg Q12H PRN Administration Itching Levothyroxine Sodium 75 mcg 03/15/24 09:00 03/27/24 06:29 Levothyroxine Sodium 75 Mcg Tablet PO 75 mcg DAILY@0630 [facility] Administration Megestrol Acetate 40 mg 03/16/24 13:00 03/27/24 08:19 Megestrol Acetate (*Chemo) 40 Mg Tablet PO 40 mg QID [facility] Administration Nonform Permethrin 1 each 03/16/24 18:00 03/23/24 18:19 Cream 5% TOPICAL 04/15/24 17:59 1 each WEEKLY@1800 [facility] Administration Trazodone HCl 100 mg 03/14/24 22:25 03/26/24 21:34 Trazodone Hcl 50 Mg Tablet PO 100 mg HS PRN Administration Insomnia Triamcinolone Acetonide 1 applic 03/15/24 17:00 03/27/24 08:20 Triamcinolone Acet 0.1% Cream 80 Gm Tube TOPICAL 1 applic BID [facility] Administration Radiology Results: ITS Impressions Chest X-Ray 03/23/24 08:35 IMPRESSION: 1. No acute cardiopulmonary disease. Quality VTE Prophylaxis VTE prophylaxis: pharmacologic ordered -Patient's previous records reviewed on admission -ER notes reviewed in detail on admission -discussed all findings and current treatment plan with patient/Family/POA -Consultations reviewed for recommendations -Patient's disposition for safe discharge discussed with lead case manager Dictation performed by [employer] direct speech recognition software, therefore block piler variants and typographical errors may occur. Hospitalist MIPS Advance Care Plan I have confirmed that the patient's Advanced Care Plan is present, code status is documented, or surrogate decision maker is listed in patient medical record.: Yes Medication Reconciliation I have utilized all available resources to obtain, update and review the patients current medications (includes all prescriptions, OTC, herbals, cannabis, and nutritional supplements).: Yes The patient is not eligible for med reconciliation; the patient is in a emergent medical situation where delaying treatment would jeopardize the patients health.: No
[2024-03-27 09:15] LABS: Hematocrit 30.3 % (35.0-42.0); Hemoglobin 9.7 g/dL (11.7-13.8); Mean Corpuscular Hemoglobin 30.6 pg (27.0-31.0); Mean Corpuscular Volume 95.6 fL (78.0-102.0); Mean Platelet Volume 9.2 fl (9.2-11.8); Platelet Count Result 449 K/mm3 (150-420); Red Blood Count 3.17 M/mm3 (4.20-5.40); Red Cell Distribution Width 15.6 % (11.6-14.4)
[2024-03-27] MEDS: DIVALPROEX SODIUM DR 250 MG TABEC 500 MG PO ×2 (10:16→21:36)
[2024-03-27 16:00] VITALS: BP 119/63; PULSE 86; RESP 16; TEMP 36.7; O2SAT 96
[2024-03-27] MEDS: traZODone HCL 50 MG TABLET 100 MG PO (21:36)
[2024-03-27] MEDS: ESCITALOPRAM OXALATE 10 MG TABLET PO (21:36)
[2024-03-28] VITALS: BP 135/67; PULSE 96; RESP 15; TEMP 36.6; O2SAT 94
[2024-03-28] MEDS: LEVOTHYROXINE SODIUM 75 MCG TABLET PO (06:34)
[2024-03-28] MEDS: GABAPENTIN 100 MG CAPSULE BY MOUTH ×3 (06:34→21:20)
[2024-03-28 07:40] VITALS: BP 118/66; PULSE 95; RESP 16; TEMP 36.1; O2SAT 95
[2024-03-28] MEDS: FOLIC ACID 1 MG TABLET PO (09:27)
[2024-03-28] MEDS: ENOXAPARIN 40 MG/0.4 ML SYRINGE SUB-Q (09:27)
[2024-03-28] MEDS: buPROPion HCL XL (24 HR) 150 MG TABCR PO (09:28)
[2024-03-28] MEDS: CYANOCOBALAMIN 500 MCG TABLET PO (09:28)
[2024-03-28] MEDS: MEGESTROL ACETATE (*CHEMO) 40 MG TABLET PO ×4 (09:28→21:20)
[2024-03-28] MEDS: CLOPIDOGREL BISULFATE 75 MG TABLET PO (09:28)
[2024-03-28] MEDS: busPIRone HCL 5 MG TABLET 15 MG PO ×3 (09:28→17:43)
[2024-03-28] MEDS: ASCORBIC ACID 500 MG TABLET PO ×2 (09:28→17:43)
[2024-03-28] MEDS: DIVALPROEX SODIUM DR 250 MG TABEC 500 MG PO ×2 (09:28→21:20)
[2024-03-28] MEDS: ASPIRIN 81 MG ENTERIC TABLET PO (09:28)
[2024-03-28] MEDS: ATORVASTATIN 40 MG TABLET 80 MG PO (09:28)
[2024-03-28] MEDS: TRIAMCINOLONE ACET 0.1% CREAM 80 GM TUBE 1 APPLIC TOPICAL (09:29)
--- NOTE | 2024-03-28 09:45 | P.PNIM_ITS ---
Progress Note: A&P Assessment and Plan (1) Rash: Code(s): R21 - Rash and other nonspecific skin eruption Status: Acute Assessment and Plan: * systemic rash upper and lower extremities chest and back * treat with prednisone added Benadryl for itching 03/16 * Rash all over body, BUE, BLE and inbetween fingers and toes * Could be a form of eczema, however can not rule out scabies. Left message for daughter to call back. * Continue prednisone * Will order permethrin 5% topical cream x1 now. * Start Atarax for itching * Will isolate for possible scabies 03/17 * Rash showing some improvement with permethrin 5% cream * Continue atarax for itching 03/18 * rash improving but still with mild itch * Stopped prednisone * can continue with cream * Bed bugs vs scabies vs systemic dermatitis 03/20 * No change to current treatment plan 03/23/2024 * Ivermectin given yesterday * Permethrin will be administered today * prn medication * skin looks a lot better 03/24 * Finished course of ivermectin and permethrin cream * rash much improved * Atarax for itching 03/25 * No change to current treatment plan 03/27: * Still with mild itch 03/28 * This may be a fungal infection will d/c triamcinolone * Start Miconazole cream (2) Pneumonia: Qualifiers: Laterality: left Lung location: lower lobe of lung Pneumonia type: due to unspecified organism Qualified Code(s): J18.9 - Pneumonia, unspecified organism Code(s): J18.9 - Pneumonia, unspecified organism Status: Resolved Assessment and Plan: CXR left basilar infiltrates suspicious for pneumonia, normal WBC, afebrile, on room air but does have generalized weakness that has worsened over the last week * given Rocephin and azithromycin in the emergency department * transitioned to oral Augmentin * oxygen p.r.n. * incentive spirometer 03/16 * Continue Augmentin and Azithromycin * Continue IS while awake 03/17 * Continue current treatment plan 03/18 * No change RESOLVED 03/23 Repeat chest xray awaiting result WBC have increased to 23 unknown cause no s/s of infection 03/27: * WBC had trended down likely secondary to medication (3) Generalized weakness: Code(s): R53.1 - Weakness Status: Acute Assessment and Plan: * likely secondary to pneumonia and failure to thrive * PT/OT for evaluation * family requesting SNF 03/16 * Continue PT and OT * Case management following for outpatient rehab needs 03/17 * Continue PT and OT * Will require placement 03/20 * No change * Case coordination working on placement 03/21 * Department of family services contacted as we are still unsuccessful in getting in touch with the daughter. Patient is unable to make decisions for herself. Case management following. * continue PT and OT 03/24 * continue PT and OT 03/25 * No change to current treatment plan 03/26 * Nursing reporting decline in ADLs yesterday and today. She is now requiring a jo ann steady to get her up out of the bed and her balance is worse today * PT and OT orders placed for re-evaluation. 03/27: * PT/OT pending (4) Moderate protein-calorie malnutrition: Code(s): E44.0 - Moderate protein-calorie malnutrition Status: Chronic Assessment and Plan: * secondary to failure to thrive * added protein shakes to each meal * regular diet * Resumed Megace 03/16 * encourage po intake * No change to current treatment plan 03/17 * No change (5) Adult failure to thrive: Code(s): R62.7 - Adult failure to thrive Status: Acute Assessment and Plan: patient has been worsening for the last year patient's passed around a year ago suffering from depression, bipolar disorder and anxiety * exterminator helper placement * see above 3 03/16 * Continue PT and OT * Case management working on placement 03/17 * No change 03/25 * Case coordination following. Unsafe discharge. Calls placed to family and department of family services. (6) Depression: Code(s): F32.9 - Major depressive disorder, single episode, unspecified Status: Chronic Assessment and Plan: * Resumed home medications BuSpar and Wellbutrin, citalopram 03/16 * No change (7) Anxiety: Code(s): F41.9 - Anxiety disorder, unspecified Status: Chronic Assessment and Plan: * Resumed home medications BuSpar and Wellbutrin 03/16 * No change (8) Bipolar disorder: Code(s): F31.9 - Bipolar disorder, unspecified Status: Chronic Assessment and Plan: * Resumed home medications divalproex 03/16 * No change (9) Hypothyroidism: Code(s): E03.9 - Hypothyroidism, unspecified Status: Chronic Assessment and Plan: * Resumed Levothyroxine 03/16 * Will check TSH level * Continue Synthroid 03/17 * TSH 0.89 (10) Hypotension: Code(s): I95.9 - Hypotension, unspecified Status: Acute Assessment and Plan: * resume patient's midodrine * monitor BP per unit protocol 03/16 * No change Plan Code status: Full code per patient DVT prophylaxis: Lovenox Stress ulcer prophylaxis: VIRGEN PT/OT notes: PT/OT re-evaluation Disposition: Patient was admitted to the medical unit further evaluation and treatment of pneumonia and generalized weakness. Patient is medically cleared for discharge however we do no t have a safe discharge at this time. Adult protective services was notified and investigating. Currently unable to go to a SNF due to financial issues. Time Spent With Patient Time with patient: 15 - 25 minutes Subjective Date/time seen: 03/28/24 09:45 Interval history: Patient is a 68-year-old female who was admitted to the medical unit for further evaluation and treatment generalized weakness, pneumonia, and failure to thrive 03/28/2024: Assumed Care Patient up in chair no changes today still with mild itching will switch and treat for fungal infection. Medically stable but not a safe discharge this is currently a adult service issue. She is eating and appears in no acute distress but with continue weakness. Review of Systems Review of Systems: All systems reviewed & are unremarkable except as noted in HPI and below Exam Narrative: General: failure to thrive, very malnourished Cardiac: Normal S1 and S2. No murmur, gallops or friction rubs, peripheral pulses intact. Respiratory: Lungs clear to auscultation, no adventitious lung sounds, currently on room air Gastrointestinal: soft, non-distended, non-tender, normoactive bowel sounds. : voiding without difficulty. Extremities: moves all extremities well, no edema Skin: rash much improved. Neuro: Alert Objective Data Vital Signs Vital Signs: Vital Signs - 24 hr 03/27/24 16:00 03/28/24 00:00 03/28/24 07:40 Temperature 98.1 F 97.9 F 97 F L Pulse Rate 86 96 95 Respiratory Rate 16 15 16 Blood Pressure 119/63 135/67 118/66 Pulse Oximetry 96 94 95 Oxygen Delivery Room Air Room Air Room Air Intake/Output Intake/Output: Intake & Output 03/25/24 03/26/24 03/27/24 03/28/24 23:59 23:59 23:59 23:59 Intake Total 1620 2090 1670 150 Balance 1620 2090 1670 150 Meds/Results Medications: Active Medications Generic Name Dose Route Start Last Admin Trade Name Freq PRN Reason Stop Dose Admin Acetaminophen 650 mg 03/14/24 20:34 03/21/24 20:20 Acetaminophen 325 Mg Tablet PO 650 mg Q4H PRN Administration Mild Pain (1-3) or Fever Al Hydrox/Mg Hydrox/Simethicone 30 ml 03/14/24 20:34 Mag Hydrox/Al Hydrox/Simeth 30 Ml Udc PO QID PRN Dyspepsia Ascorbic Acid 500 mg 03/15/24 09:00 03/28/24 09:28 Ascorbic Acid 500 Mg Tablet PO 500 mg BID [facility] Administration Aspirin 81 mg 03/15/24 09:00 03/28/24 09:28 Aspirin 81 Mg Enteric Tablet PO 81 mg QAM [facility] Administration Atorvastatin Calcium 80 mg 03/15/24 09:00 03/28/24 09:28 Atorvastatin 40 Mg Tablet PO 80 mg DAILY [facility] Administration Bupropion HCl 150 mg 03/15/24 09:00 03/28/24 09:28 Bupropion Hcl Xl (24 Hr) 150 Mg Tabcr PO 150 mg DAILY [facility] Administration Buspirone HCl 15 mg 03/15/24 09:00 03/28/24 09:28 Buspirone Hcl 5 Mg Tablet PO 15 mg TID [facility] Administration Clopidogrel Bisulfate 75 mg 03/15/24 09:00 03/28/24 09:28 Clopidogrel Bisulfate 75 Mg Tablet PO 75 mg DAILY [facility] Administration Cyanocobalamin 500 mcg 03/15/24 09:00 03/28/24 09:28 Cyanocobalamin 500 Mcg Tablet PO 500 mcg QAM [facility] Administration Diphenhydramine HCl 25 mg 03/15/24 10:06 03/26/24 21:34 Diphenhydramine Hcl Cap 25 Mg Capsule PO 25 mg Q6H PRN Administration Itching Divalproex Sodium 500 mg 03/14/24 22:15 03/28/24 09:[address] 250 Mg Tabec PO 500 mg Q12H [facility] Administration Enoxaparin Sodium 40 mg 03/16/24 09:00 03/28/24 09:27 Enoxaparin 40 Mg/0.4 Ml Syringe SUB-Q 40 mg DAILY [facility] Administration Escitalopram Oxalate 10 mg 03/14/24 21:00 03/27/24 21:36 Escitalopram Oxalate 10 Mg Tablet PO 10 mg HS [facility] Administration Folic Acid 1 mg 03/15/24 09:00 03/28/24 09:27 Folic Acid 1 Mg Tablet PO 1 mg DAILY [facility] Administration Gabapentin 100 mg 03/14/24 22:00 03/28/24 06:34 Gabapentin 100 Mg Capsule BY MOUTH 100 mg Q8HR [facility] Administration Hydroxyzine HCl 25 mg 03/22/24 10:26 03/27/24 21:36 Hydroxyzine Hcl 25 Mg Tablet PO 25 mg Q12H PRN Administration Itching Levothyroxine Sodium 75 mcg 03/15/24 09:00 03/28/24 06:34 Levothyroxine Sodium 75 Mcg Tablet PO 75 mcg DAILY@0630 [facility] Administration Megestrol Acetate 40 mg 03/16/24 13:00 03/28/24 09:28 Megestrol Acetate (*Chemo) 40 Mg Tablet PO 40 mg QID [facility] Administration Nonform Permethrin 1 each 03/16/24 18:00 03/23/24 18:19 Cream 5% TOPICAL 04/15/24 17:59 1 each WEEKLY@1800 [facility] Administration Trazodone HCl 100 mg 03/14/24 22:25 03/27/24 21:36 Trazodone Hcl 50 Mg Tablet PO 100 mg HS PRN Administration Insomnia Triamcinolone Acetonide 1 applic 03/15/24 17:00 03/28/24 09:29 Triamcinolone Acet 0.1% Cream 80 Gm Tube TOPICAL 1 applic BID [facility] Administration Radiology Results: ITS Impressions Chest X-Ray 03/23/24 08:35 IMPRESSION: 1. No acute cardiopulmonary disease. Quality VTE Prophylaxis VTE prophylaxis: pharmacologic ordered -Patient's previous records reviewed on admission -ER notes reviewed in detail on admission -discussed all findings and current treatment plan with patient/Family/POA -Consultations reviewed for recommendations -Patient's disposition for safe discharge discussed with pillowcase sewer Dictation performed by [employer] direct speech recognition software, therefore curing finisher variants and typographical errors may occur. Hospitalist MIPS Advance Care Plan I have confirmed that the patient's Advanced Care Plan is present, code status is documented, or surrogate decision maker is listed in patient medical record.: Yes Medication Reconciliation I have utilized all available resources to obtain, update and review the patients current medications (includes all prescriptions, OTC, herbals, cannabis, and nutritional supplements).: Yes The patient is not eligible for med reconciliation; the patient is in a emergent medical situation where delaying treatment would jeopardize the patients health.: No
--- NOTE | 2024-03-28 09:45 | PM.IMPN ---
Progress Note: A&P Assessment and Plan (1) Rash: Code(s): R21 - Rash and other nonspecific skin eruption Status: Acute Assessment and Plan: systemic rash upper and lower extremities chest and back treat with prednisone added Benadryl for itching 03/16 Rash all over body, BUE, BLE and inbetween fingers and toes Could be a form of eczema, however can not rule out scabies. Left message for daughter to call back. Continue prednisone Will order permethrin 5% topical cream x1 now. Start Atarax for itching Will isolate for possible scabies 03/17 Rash showing some improvement with permethrin 5% cream Continue atarax for itching 03/18 rash improving but still with mild itch Stopped prednisone can continue with cream Bed bugs vs scabies vs systemic dermatitis 03/20 No change to current treatment plan 03/23/2024 Ivermectin given yesterday Permethrin will be administered today prn medication skin looks a lot better 03/24 Finished course of ivermectin and permethrin cream rash much improved Atarax for itching 03/25 No change to current treatment plan 03/27: Still with mild itch 03/28 This may be a fungal infection will d/c triamcinolone Start Miconazole cream (2) Pneumonia: Qualifiers: Laterality: left Lung location: lower lobe of lung Pneumonia type: due to unspecified organism Qualified Code(s): J18.9 - Pneumonia, unspecified organism Code(s): J18.9 - Pneumonia, unspecified organism Status: Resolved Assessment and Plan: CXR left basilar infiltrates suspicious for pneumonia, normal WBC, afebrile, on room air but does have generalized weakness that has worsened over the last week given Rocephin and azithromycin in the emergency department transitioned to oral Augmentin oxygen p.r.n. incentive spirometer 03/16 Continue Augmentin and Azithromycin Continue IS while awake 03/17 Continue current treatment plan 03/18 No change RESOLVED 03/23 Repeat chest xray awaiting result WBC have increased to 23 unknown cause no s/s of infection 03/27: WBC had trended down likely secondary to medication (3) Generalized weakness: Code(s): R53.1 - Weakness Status: Acute Assessment and Plan: likely secondary to pneumonia and failure to thrive PT/OT for evaluation family requesting SNF 03/16 Continue PT and OT Case management following for outpatient rehab needs 03/17 Continue PT and OT Will require placement 03/20 No change Case coordination working on placement 03/21 Department of family services contacted as we are still unsuccessful in getting in touch with the daughter. Patient is unable to make decisions for herself. Case management following. continue PT and OT 03/24 continue PT and OT 03/25 No change to current treatment plan 03/26 Nursing reporting decline in ADLs yesterday and today. She is now requiring a jo ann steady to get her up out of the bed and her balance is worse today PT and OT orders placed for re-evaluation. 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 Unsafe discharge. Calls placed to family and department of family services. (6) Depression: Code(s): F32.9 - Major depressive disorder, single episode, unspecified Status: Chronic Assessment and Plan: Resumed home medications BuSpar and Wellbutrin, citalopram 03/16 No change (7) Anxiety: Code(s): F41.9 - Anxiety disorder, unspecified Status: Chronic Assessment and Plan: Resumed home medications BuSpar and Wellbutrin 03/16 No change (8) Bipolar disorder: Code(s): F31.9 - Bipolar disorder, unspecified Status: Chronic Assessment and Plan: Resumed home medications divalproex 03/16 No change (9) Hypothyroidism: Code(s): E03.9 - Hypothyroidism, unspecified Status: Chronic Assessment and Plan: Resumed Levothyroxine 03/16 Will check TSH level Continue Synthroid 03/17 TSH 0.89 (10) Hypotension: Code(s): I95.9 - Hypotension, unspecified Status: Acute Assessment and Plan: resume patient's midodrine monitor BP per unit protocol 03/16 No change Plan Code status: Full code per patient DVT prophylaxis: Lovenox Stress ulcer prophylaxis: NA PT/OT notes: PT/OT re-evaluation Disposition: Patient was admitted to the medical unit further evaluation and treatment of pneumonia and generalized weakness. Patient is medically cleared for discharge however we do no t have a safe discharge at this time. Adult protective services was notified and investigating. Currently unable to go to a SNF due to financial issues. Time Spent With Patient Time with patient: 15 - 25 minutes Subjective Date/time seen: 03/28/24 09:45 Interval history: Patient is a 68-year-old female who was admitted to the medical unit for further evaluation and treatment generalized weakness, pneumonia, and failure to thrive 03/28/2024: Assumed Care Patient up in chair no changes today still with mild itching will switch and treat for fungal infection. Medically stable but not a safe discharge this is currently a adult service issue. She is eating and appears in no acute distress but with continue weakness. Review of Systems Review of Systems: All systems reviewed & are unremarkable except as noted in HPI and below Exam Narrative: General: failure to thrive, very malnourished Cardiac: Normal S1 and S2. No murmur, gallops or friction rubs, peripheral pulses intact. Respiratory: Lungs clear to auscultation, no adventitious lung sounds, currently on room air Gastrointestinal: soft, non-distended, non-tender, normoactive bowel sounds. : voiding without difficulty. Extremities: moves all extremities well, no edema Skin: rash much improved. Neuro: Alert Objective Data Vital Signs Vital Signs: Vital Signs - 24 hr 03/27/24 16:00 03/28/24 00:00 03/28/24 07:40 Temperature 98.1 F 97.9 F 97 F L Pulse Rate 86 96 95 Respiratory Rate 16 15 16 Blood Pressure 119/63 135/67 118/66 Pulse Oximetry 96 94 95 Oxygen Delivery Room Air Room Air Room Air Intake/Output Intake/Output: Intake & Output 03/25/24 03/26/24 03/27/24 03/28/24 23:59 23:59 23:59 23:59 Intake Total 1620 0 1670 150 Balance 1620 2090 1670 150 Meds/Results Medications: Active Medications Generic Name Dose Route Start Last Admin Trade Name Freq PRN Reason Stop Dose Admin Acetaminophen 650 mg 03/14/24 20:34 03/21/24 20:20 Acetaminophen 325 Mg Tablet PO 650 mg Q4H PRN Administration Mild Pain (1-3) or Fever Al Hydrox/Mg Hydrox/Simethicone 30 ml 03/14/24 20:34 Mag Hydrox/Al Hydrox/Simeth 30 Ml Udc PO QID PRN Dyspepsia Ascorbic Acid 500 mg 03/15/24 09:00 03/28/24 09:28 Ascorbic Acid 500 Mg Tablet PO 500 mg BID [facility] Administration Aspirin 81 mg 03/15/24 09:00 03/28/24 09:28 Aspirin 81 Mg Enteric Tablet PO 81 mg QAM [facility] Administration Atorvastatin Calcium 80 mg 03/15/24 09:00 03/28/24 09:28 Atorvastatin 40 Mg Tablet PO 80 mg DAILY [facility] Administration Bupropion HCl 150 mg 03/15/24 09:00 03/28/24 09:28 Bupropion Hcl Xl (24 Hr) 150 Mg Tabcr PO 150 mg DAILY [facility] Administration Buspirone HCl 15 mg 03/15/24 09:00 03/28/24 09:28 Buspirone Hcl 5 Mg Tablet PO 15 mg TID [facility] Administration Clopidogrel Bisulfate 75 mg 03/15/24 09:00 03/28/24 09:28 Clopidogrel Bisulfate 75 Mg Tablet PO 75 mg DAILY [facility] Administration Cyanocobalamin 500 mcg 03/15/24 09:00 03/28/24 09:28 Cyanocobalamin 500 Mcg Tablet PO 500 mcg QAM [facility] Administration Diphenhydramine HCl 25 mg 03/15/24 10:06 03/26/24 21:34 Diphenhydramine Hcl Cap 25 Mg Capsule PO 25 mg Q6H PRN Administration Itching Divalproex Sodium 500 mg 03/14/24 22:15 03/28/24 09:[address] 250 Mg Tabec PO 500 mg Q12H [facility] Administration Enoxaparin Sodium 40 mg 03/16/24 09:00 03/28/24 09:27 Enoxaparin 40 Mg/0.4 Ml Syringe SUB-Q 40 mg DAILY [facility] Administration Escitalopram Oxalate 10 mg 03/14/24 21:00 03/27/24 21:36 Escitalopram Oxalate 10 Mg Tablet PO 10 mg HS [facility] Administration Folic Acid 1 mg 03/15/24 09:00 03/28/24 09:27 Folic Acid 1 Mg Tablet PO 1 mg DAILY [facility] Administration Gabapentin 100 mg 03/14/24 22:00 03/28/24 06:34 Gabapentin 100 Mg Capsule BY MOUTH 100 mg Q8HR [facility] Administration Hydroxyzine HCl 25 mg 03/22/24 10:26 03/27/24 21:36 Hydroxyzine Hcl 25 Mg Tablet PO 25 mg Q12H PRN Administration Itching Levothyroxine Sodium 75 mcg 03/15/24 09:00 03/28/24 06:34 Levothyroxine Sodium 75 Mcg Tablet PO 75 mcg DAILY@0630 [facility] Administration Megestrol Acetate 40 mg 03/16/24 13:00 03/28/24 09:28 Megestrol Acetate (*Chemo) 40 Mg Tablet PO 40 mg QID [facility] Administration Nonform Permethrin 1 each 03/16/24 18:00 03/23/24 18:19 Cream 5% TOPICAL 04/15/24 17:59 1 each WEEKLY@1800 [facility] Administration Trazodone HCl 100 mg 03/14/24 22:25 03/27/24 21:36 Trazodone Hcl 50 Mg Tablet PO 100 mg HS PRN Administration Insomnia Triamcinolone Acetonide 1 applic 03/15/24 17:00 03/28/24 09:29 Triamcinolone Acet 0.1% Cream 80 Gm Tube TOPICAL 1 applic BID [facility] Administration Radiology Results: ITS Impressions Chest X-Ray 03/23/24 08:35 IMPRESSION: 1. No acute cardiopulmonary disease. Quality VTE Prophylaxis VTE prophylaxis: pharmacologic ordered -Patient's previous records reviewed on admission -ER notes reviewed in detail on admission -discussed all findings and current treatment plan with patient/Family/POA -Consultations reviewed for recommendations -Patient's disposition for safe discharge discussed with counseling case manager Dictation performed by [employer] direct speech recognition software, therefore workday senior associate variants and typographical errors may occur. Hospitalist MIPS Advance Care Plan I have confirmed that the patient's Advanced Care Plan is present, code status is documented, or surrogate decision maker is listed in patient medical record.: Yes Medication Reconciliation I have utilized all available resources to obtain, update and review the patients current medications (includes all prescriptions, OTC, herbals, cannabis, and nutritional supplements).: Yes The patient is not eligible for med reconciliation; the patient is in a emergent medical situation where delaying treatment would jeopardize the patients health.: No
[2024-03-28] MEDS: MICONAZOLE NITRATE 2% CREAM 30 GM TUBE 1 APPLIC TOPICAL ×2 (10:55→21:20)
[2024-03-28 16:30] VITALS: BP 125/73; PULSE 92; RESP 18; TEMP 36.1; O2SAT 94
[2024-03-28] MEDS: hydrOXYzine HCL 25 MG TABLET PO (21:19)
[2024-03-28] MEDS: ESCITALOPRAM OXALATE 10 MG TABLET PO (21:20)
[2024-03-28] MEDS: traZODone HCL 50 MG TABLET 100 MG PO (21:20)
[2024-03-29] VITALS: BP 125/55; PULSE 84; RESP 16; TEMP 36.4; O2SAT 95
[2024-03-29] MEDS: LEVOTHYROXINE SODIUM 75 MCG TABLET PO (05:54)
[2024-03-29] MEDS: GABAPENTIN 100 MG CAPSULE BY MOUTH ×3 (05:54→21:30)
[2024-03-29 07:35] VITALS: BP 121/57; PULSE 85; RESP 16; TEMP 36.3; O2SAT 97
[2024-03-29] MEDS: ENOXAPARIN 40 MG/0.4 ML SYRINGE SUB-Q (09:04)
[2024-03-29] MEDS: ATORVASTATIN 40 MG TABLET 80 MG PO (09:04)
[2024-03-29] MEDS: busPIRone HCL 5 MG TABLET 15 MG PO ×3 (09:04→17:35)
[2024-03-29] MEDS: MEGESTROL ACETATE (*CHEMO) 40 MG TABLET PO ×4 (09:04→21:30)
[2024-03-29] MEDS: ASCORBIC ACID 500 MG TABLET PO ×2 (09:04→17:35)
[2024-03-29] MEDS: DIVALPROEX SODIUM DR 250 MG TABEC 500 MG PO ×2 (09:05→21:28)
[2024-03-29] MEDS: CYANOCOBALAMIN 500 MCG TABLET PO (09:05)
[2024-03-29] MEDS: MICONAZOLE NITRATE 2% CREAM 30 GM TUBE 1 APPLIC TOPICAL ×2 (09:05→21:32)
[2024-03-29] MEDS: CLOPIDOGREL BISULFATE 75 MG TABLET PO (09:05)
[2024-03-29] MEDS: FOLIC ACID 1 MG TABLET PO (09:05)
[2024-03-29] MEDS: ASPIRIN 81 MG ENTERIC TABLET PO (09:05)
[2024-03-29] MEDS: buPROPion HCL XL (24 HR) 150 MG TABCR PO (09:05)
[2024-03-29] MEDS: hydrOXYzine HCL 25 MG TABLET PO ×2 (11:19→17:35)
--- NOTE | 2024-03-29 11:38 | P.PNIM_ITS ---
Progress Note: A&P Assessment and Plan (1) Rash: Code(s): R21 - Rash and other nonspecific skin eruption Status: Acute Assessment and Plan: * systemic rash upper and lower extremities chest and back * treat with prednisone added Benadryl for itching 03/16 * Rash all over body, BUE, BLE and inbetween fingers and toes * Could be a form of eczema, however can not rule out scabies. Left message for daughter to call back. * Continue prednisone * Will order permethrin 5% topical cream x1 now. * Start Atarax for itching * Will isolate for possible scabies 03/17 * Rash showing some improvement with permethrin 5% cream * Continue atarax for itching 03/18 * rash improving but still with mild itch * Stopped prednisone * can continue with cream * Bed bugs vs scabies vs systemic dermatitis 03/20 * No change to current treatment plan 03/23/2024 * Ivermectin given yesterday * Permethrin will be administered today * prn medication * skin looks a lot better 03/24 * Finished course of ivermectin and permethrin cream * rash much improved * Atarax for itching 03/25 * No change to current treatment plan 03/27: * Still with mild itch 03/28 * This may be a fungal infection will d/c triamcinolone * Start Miconazole cream (2) Pneumonia: Qualifiers: Laterality: left Lung location: lower lobe of lung Pneumonia type: due to unspecified organism Qualified Code(s): J18.9 - Pneumonia, unspecified organism Code(s): J18.9 - Pneumonia, unspecified organism Status: Resolved Assessment and Plan: CXR left basilar infiltrates suspicious for pneumonia, normal WBC, afebrile, on room air but does have generalized weakness that has worsened over the last week * given Rocephin and azithromycin in the emergency department * transitioned to oral Augmentin * oxygen p.r.n. * incentive spirometer 03/16 * Continue Augmentin and Azithromycin * Continue IS while awake 03/17 * Continue current treatment plan 03/18 * No change RESOLVED 03/23 Repeat chest xray awaiting result WBC have increased to 23 unknown cause no s/s of infection 03/27: * WBC had trended down likely secondary to medication (3) Generalized weakness: Code(s): R53.1 - Weakness Status: Acute Assessment and Plan: * likely secondary to pneumonia and failure to thrive * PT/OT for evaluation * family requesting SNF 03/16 * Continue PT and OT * Case management following for outpatient rehab needs 03/17 * Continue PT and OT * Will require placement 03/20 * No change * Case coordination working on placement 03/21 * Department of family services contacted as we are still unsuccessful in getting in touch with the daughter. Patient is unable to make decisions for herself. Case management following. * continue PT and OT 03/24 * continue PT and OT 03/25 * No change to current treatment plan 03/26 * Nursing reporting decline in ADLs yesterday and today. She is now requiring a jo ann steady to get her up out of the bed and her balance is worse today * PT and OT orders placed for re-evaluation. 03/27: * PT/OT pending (4) Moderate protein-calorie malnutrition: Code(s): E44.0 - Moderate protein-calorie malnutrition Status: Chronic Assessment and Plan: * secondary to failure to thrive * added protein shakes to each meal * regular diet * Resumed Megace 03/16 * encourage po intake * No change to current treatment plan 03/17 * No change (5) Adult failure to thrive: Code(s): R62.7 - Adult failure to thrive Status: Acute Assessment and Plan: patient has been worsening for the last year patient's passed around a year ago suffering from depression, bipolar disorder and anxiety * long term placement * see above 3 03/16 * Continue PT and OT * Case management working on placement 03/17 * No change 03/25 * Case coordination following. Unsafe discharge. Calls placed to family and department of family services. (6) Depression: Code(s): F32.9 - Major depressive disorder, single episode, unspecified Status: Chronic Assessment and Plan: * Resumed home medications BuSpar and Wellbutrin, citalopram 03/16 * No change (7) Anxiety: Code(s): F41.9 - Anxiety disorder, unspecified Status: Chronic Assessment and Plan: * Resumed home medications BuSpar and Wellbutrin 03/16 * No change (8) Bipolar disorder: Code(s): F31.9 - Bipolar disorder, unspecified Status: Chronic Assessment and Plan: * Resumed home medications divalproex 03/16 * No change (9) Hypothyroidism: Code(s): E03.9 - Hypothyroidism, unspecified Status: Chronic Assessment and Plan: * Resumed Levothyroxine 03/16 * Will check TSH level * Continue Synthroid 03/17 * TSH 0.89 (10) Hypotension: Code(s): I95.9 - Hypotension, unspecified Status: Acute Assessment and Plan: * resume patient's midodrine * monitor BP per unit protocol 03/16 * No change Plan Code status: Full code per patient DVT prophylaxis: Lovenox Stress ulcer prophylaxis: VIRGEN PT/OT notes: PT/OT re-evaluation Disposition: Patient was admitted to the medical unit further evaluation and treatment of pneumonia and generalized weakness. Patient is medically cleared for discharge however we do no t have a safe discharge at this time. Adult protective services was notified and investigating. Currently unable to go to a SNF due to financial issues. Time Spent With Patient Time with patient: 15 - 25 minutes Subjective Date/time seen: 03/29/24 11:38 Interval history: Patient is a 68-year-old female who was admitted to the medical unit for further evaluation and treatment generalized weakness, pneumonia, and failure to thrive 03/29/2024: Assumed Care Patient with no complaints but still itching and picking at scabs will schedule her Hydroxyzine. Will order F/U PT/OT. Review of Systems Review of Systems: All systems reviewed & are unremarkable except as noted in HPI and below Exam Narrative: General: failure to thrive, very malnourished Cardiac: Normal S1 and S2. No murmur, gallops or friction rubs, peripheral pulses intact. Respiratory: Lungs clear to auscultation, no adventitious lung sounds, currently on room air Gastrointestinal: soft, non-distended, non-tender, normoactive bowel sounds. : voiding without difficulty. Extremities: moves all extremities well, no edema Skin: rash much improved. Neuro: Alert Objective Data Vital Signs Vital Signs: Vital Signs - 24 hr 03/28/24 16:30 03/29/24 00:00 03/29/24 07:35 Temperature 97 F L 97.6 F 97.3 F L Pulse Rate 92 84 85 Respiratory Rate 18 16 16 Blood Pressure 125/73 125/55 L 121/57 L Pulse Oximetry 94 95 97 Oxygen Delivery Room Air Room Air Room Air Intake/Output Intake/Output: Intake & Output 03/26/24 03/27/24 03/28/24 03/29/24 23:59 23:59 23:59 23:59 Intake Total 2089 1670 1940 680 Balance 20890 1940 680 Meds/Results Medications: Active Medications Generic Name Dose Route Start Last Admin Trade Name Freq PRN Reason Stop Dose Admin Acetaminophen 650 mg 03/14/24 20:34 03/21/24 20:20 Acetaminophen 325 Mg Tablet PO 650 mg Q4H PRN Administration Mild Pain (1-3) or Fever Al Hydrox/Mg Hydrox/Simethicone 30 ml 03/14/24 20:34 Mag Hydrox/Al Hydrox/Simeth 30 Ml Udc PO QID PRN Dyspepsia Ascorbic Acid 500 mg 03/15/24 09:00 03/29/24 09:04 Ascorbic Acid 500 Mg Tablet PO 500 mg BID [facility] Administration Aspirin 81 mg 03/15/24 09:00 03/29/24 09:05 Aspirin 81 Mg Enteric Tablet PO 81 mg QAM [facility] Administration Atorvastatin Calcium 80 mg 03/15/24 09:00 03/29/24 09:04 Atorvastatin 40 Mg Tablet PO 80 mg DAILY [facility] Administration Bupropion HCl 150 mg 03/15/24 09:00 03/29/24 09:05 Bupropion Hcl Xl (24 Hr) 150 Mg Tabcr PO 150 mg DAILY [facility] Administration Buspirone HCl 15 mg 03/15/24 09:00 03/29/24 09:04 Buspirone Hcl 5 Mg Tablet PO 15 mg TID [facility] Administration Clopidogrel Bisulfate 75 mg 03/15/24 09:00 03/29/24 09:05 Clopidogrel Bisulfate 75 Mg Tablet PO 75 mg DAILY [facility] Administration Cyanocobalamin 500 mcg 03/15/24 09:00 03/29/24 09:05 Cyanocobalamin 500 Mcg Tablet PO 500 mcg QAM [facility] Administration Diphenhydramine HCl 25 mg 03/15/24 10:06 03/26/24 21:34 Diphenhydramine Hcl Cap 25 Mg Capsule PO 25 mg Q6H PRN Administration Itching Divalproex Sodium 500 mg 03/14/24 22:15 03/29/24 09:[address] 250 Mg Tabec PO 500 mg Q12H [facility] Administration Enoxaparin Sodium 40 mg 03/16/24 09:00 03/29/24 09:04 Enoxaparin 40 Mg/0.4 Ml Syringe SUB-Q 40 mg DAILY [facility] Administration Escitalopram Oxalate 10 mg 03/14/24 21:00 03/28/24 21:20 Escitalopram Oxalate 10 Mg Tablet PO 10 mg HS [facility] Administration Folic Acid 1 mg 03/15/24 09:00 03/29/24 09:05 Folic Acid 1 Mg Tablet PO 1 mg DAILY [facility] Administration Gabapentin 100 mg 03/14/24 22:00 03/29/24 05:54 Gabapentin 100 Mg Capsule BY MOUTH 100 mg Q8HR [facility] Administration Hydroxyzine HCl 25 mg 03/22/24 10:26 03/29/24 11:19 Hydroxyzine Hcl 25 Mg Tablet PO 25 mg Q12H PRN Administration Itching Levothyroxine Sodium 75 mcg 03/15/24 09:00 03/29/24 05:54 Levothyroxine Sodium 75 Mcg Tablet PO 75 mcg DAILY@0630 [facility] Administration Megestrol Acetate 40 mg 03/16/24 13:00 03/29/24 09:04 Megestrol Acetate (*Chemo) 40 Mg Tablet PO 40 mg QID [facility] Administration Miconazole Nitrate 1 applic 03/28/24 09:55 03/29/24 09:05 Miconazole Nitrate 2% Cream 30 Gm Tube TOPICAL 1 applic Q12HR [facility] Administration Trazodone HCl 100 mg 03/14/24 22:25 03/28/24 21:20 Trazodone Hcl 50 Mg Tablet PO 100 mg HS PRN Administration Insomnia Radiology Results: ITS Impressions Chest X-Ray 03/23/24 08:35 IMPRESSION: 1. No acute cardiopulmonary disease. Quality VTE Prophylaxis VTE prophylaxis: pharmacologic ordered -Patient's previous records reviewed on admission -ER notes reviewed in detail on admission -discussed all findings and current treatment plan with patient/Family/POA -Consultations reviewed for recommendations -Patient's disposition for safe discharge discussed with pillowcase cutter Dictation performed by [employer] direct speech recognition software, therefore mold maker plastic molds variants and typographical errors may occur. Hospitalist MIPS Advance Care Plan I have confirmed that the patient's Advanced Care Plan is present, code status is documented, or surrogate decision maker is listed in patient medical record.: Yes Medication Reconciliation I have utilized all available resources to obtain, update and review the patients current medications (includes all prescriptions, OTC, herbals, cannabis, and nutritional supplements).: Yes The patient is not eligible for med reconciliation; the patient is in a emergent medical situation where delaying treatment would jeopardize the patients health.: No
--- NOTE | 2024-03-29 11:38 | PM.IMPN ---
Progress Note: A&P Assessment and Plan (1) Rash: Code(s): R21 - Rash and other nonspecific skin eruption Status: Acute Assessment and Plan: systemic rash upper and lower extremities chest and back treat with prednisone added Benadryl for itching 03/16 Rash all over body, BUE, BLE and inbetween fingers and toes Could be a form of eczema, however can not rule out scabies. Left message for daughter to call back. Continue prednisone Will order permethrin 5% topical cream x1 now. Start Atarax for itching Will isolate for possible scabies 03/17 Rash showing some improvement with permethrin 5% cream Continue atarax for itching 03/18 rash improving but still with mild itch Stopped prednisone can continue with cream Bed bugs vs scabies vs systemic dermatitis 03/20 No change to current treatment plan 03/23/2024 Ivermectin given yesterday Permethrin will be administered today prn medication skin looks a lot better 03/24 Finished course of ivermectin and permethrin cream rash much improved Atarax for itching 03/25 No change to current treatment plan 03/27: Still with mild itch 03/28 This may be a fungal infection will d/c triamcinolone Start Miconazole cream (2) Pneumonia: Qualifiers: Laterality: left Lung location: lower lobe of lung Pneumonia type: due to unspecified organism Qualified Code(s): J18.9 - Pneumonia, unspecified organism Code(s): J18.9 - Pneumonia, unspecified organism Status: Resolved Assessment and Plan: CXR left basilar infiltrates suspicious for pneumonia, normal WBC, afebrile, on room air but does have generalized weakness that has worsened over the last week given Rocephin and azithromycin in the emergency department transitioned to oral Augmentin oxygen p.r.n. incentive spirometer 03/16 Continue Augmentin and Azithromycin Continue IS while awake 03/17 Continue current treatment plan 03/18 No change RESOLVED 03/23 Repeat chest xray awaiting result WBC have increased to 23 unknown cause no s/s of infection 03/27: WBC had trended down likely secondary to medication (3) Generalized weakness: Code(s): R53.1 - Weakness Status: Acute Assessment and Plan: likely secondary to pneumonia and failure to thrive PT/OT for evaluation family requesting SNF 03/16 Continue PT and OT Case management following for outpatient rehab needs 03/17 Continue PT and OT Will require placement 03/20 No change Case coordination working on placement 03/21 Department of family services contacted as we are still unsuccessful in getting in touch with the daughter. Patient is unable to make decisions for herself. Case management following. continue PT and OT 03/24 continue PT and OT 03/25 No change to current treatment plan 03/26 Nursing reporting decline in ADLs yesterday and today. She is now requiring a jo ann steady to get her up out of the bed and her balance is worse today PT and OT orders placed for re-evaluation. 03/27: PT/OT pending (4) Moderate protein-calorie malnutrition: Code(s): E44.0 - Moderate protein-calorie malnutrition Status: Chronic Assessment and Plan: secondary to failure to thrive added protein shakes to each meal regular diet Resumed Megace 03/16 encourage po intake No change to current treatment plan 03/17 No change (5) Adult failure to thrive: Code(s): R62.7 - Adult failure to thrive Status: Acute Assessment and Plan: patient has been worsening for the last year patient's passed around a year ago suffering from depression, bipolar disorder and anxiety manager intermediate placement see above 3 03/16 Continue PT and OT Case management working on placement 03/17 No change 03/25 Case coordination following. Unsafe discharge. Calls placed to family and department of family services. (6) Depression: Code(s): F32.9 - Major depressive disorder, single episode, unspecified Status: Chronic Assessment and Plan: Resumed home medications BuSpar and Wellbutrin, citalopram 03/16 No change (7) Anxiety: Code(s): F41.9 - Anxiety disorder, unspecified Status: Chronic Assessment and Plan: Resumed home medications BuSpar and Wellbutrin 03/16 No change (8) Bipolar disorder: Code(s): F31.9 - Bipolar disorder, unspecified Status: Chronic Assessment and Plan: Resumed home medications divalproex 03/16 No change (9) Hypothyroidism: Code(s): E03.9 - Hypothyroidism, unspecified Status: Chronic Assessment and Plan: Resumed Levothyroxine 03/16 Will check TSH level Continue Synthroid 03/17 TSH 0.89 (10) Hypotension: Code(s): I95.9 - Hypotension, unspecified Status: Acute Assessment and Plan: resume patient's midodrine monitor BP per unit protocol 03/16 No change Plan Code status: Full code per patient DVT prophylaxis: Lovenox Stress ulcer prophylaxis: NA PT/OT notes: PT/OT re-evaluation Disposition: Patient was admitted to the medical unit further evaluation and treatment of pneumonia and generalized weakness. Patient is medically cleared for discharge however we do no t have a safe discharge at this time. Adult protective services was notified and investigating. Currently unable to go to a SNF due to financial issues. Time Spent With Patient Time with patient: 15 - 25 minutes Subjective Date/time seen: 03/29/24 11:38 Interval history: Patient is a 68-year-old female who was admitted to the medical unit for further evaluation and treatment generalized weakness, pneumonia, and failure to thrive 03/29/2024: Assumed Care Patient with no complaints but still itching and picking at scabs will schedule her Hydroxyzine. Will order F/U PT/OT. Review of Systems Review of Systems: All systems reviewed & are unremarkable except as noted in HPI and below Exam Narrative: General: failure to thrive, very malnourished Cardiac: Normal S1 and S2. No murmur, gallops or friction rubs, peripheral pulses intact. Respiratory: Lungs clear to auscultation, no adventitious lung sounds, currently on room air Gastrointestinal: soft, non-distended, non-tender, normoactive bowel sounds. : voiding without difficulty. Extremities: moves all extremities well, no edema Skin: rash much improved. Neuro: Alert Objective Data Vital Signs Vital Signs: Vital Signs - 24 hr 03/28/24 16:30 03/29/24 00:00 03/29/24 07:35 Temperature 97 F L 97.6 F 97.3 F L Pulse Rate 92 84 85 Respiratory Rate 18 16 16 Blood Pressure 125/73 125/55 L 121/57 L Pulse Oximetry 94 95 97 Oxygen Delivery Room Air Room Air Room Air Intake/Output Intake/Output: Intake & Output 03/26/24 03/27/24 03/28/24 03/29/24 23:59 23:59 23:59 23:59 Intake Total 2089 1669 1939 680 Balance 2089 1669 1939 680 Meds/Results Medications: Active Medications Generic Name Dose Route Start Last Admin Trade Name Freq PRN Reason Stop Dose Admin Acetaminophen 650 mg 03/14/24 20:34 03/21/24 20:20 Acetaminophen 325 Mg Tablet PO 650 mg Q4H PRN Administration Mild Pain (1-3) or Fever Al Hydrox/Mg Hydrox/Simethicone 30 ml 03/14/24 20:34 Mag Hydrox/Al Hydrox/Simeth 30 Ml Udc PO QID PRN Dyspepsia Ascorbic Acid 500 mg 03/15/24 09:00 03/29/24 09:04 Ascorbic Acid 500 Mg Tablet PO 500 mg BID MINH Administration Aspirin 81 mg 03/15/24 09:00 03/29/24 09:05 Aspirin 81 Mg Enteric Tablet PO 81 mg QAM MINH Administration Atorvastatin Calcium 80 mg 03/15/24 09:00 03/29/24 09:04 Atorvastatin 40 Mg Tablet PO 80 mg DAILY MINH Administration Bupropion HCl 150 mg 03/15/24 09:00 03/29/24 09:05 Bupropion Hcl Xl (24 Hr) 150 Mg Tabcr PO 150 mg DAILY MINH Administration Buspirone HCl 15 mg 03/15/24 09:00 03/29/24 09:04 Buspirone Hcl 5 Mg Tablet PO 15 mg TID MINH Administration Clopidogrel Bisulfate 75 mg 03/15/24 09:00 03/29/24 09:05 Clopidogrel Bisulfate 75 Mg Tablet PO 75 mg DAILY MINH Administration Cyanocobalamin 500 mcg 03/15/24 09:00 03/29/24 09:05 Cyanocobalamin 500 Mcg Tablet PO 500 mcg QAM MINH Administration Diphenhydramine HCl 25 mg 03/15/24 10:06 03/26/24 21:34 Diphenhydramine Hcl Cap 25 Mg Capsule PO 25 mg Q6H PRN Administration Itching Divalproex Sodium 500 mg 03/14/24 22:15 03/29/24 09:[address] 250 Mg Tabec PO 500 mg Q12H MINH Administration Enoxaparin Sodium 40 mg 03/16/24 09:00 03/29/24 09:04 Enoxaparin 40 Mg/0.4 Ml Syringe SUB-Q 40 mg DAILY MINH Administration Escitalopram Oxalate 10 mg 03/14/24 21:00 03/28/24 21:20 Escitalopram Oxalate 10 Mg Tablet PO 10 mg HS MINH Administration Folic Acid 1 mg 03/15/24 09:00 03/29/24 09:05 Folic Acid 1 Mg Tablet PO 1 mg DAILY MINH Administration Gabapentin 100 mg 03/14/24 22:00 03/29/24 05:54 Gabapentin 100 Mg Capsule BY MOUTH 100 mg Q8HR MINH Administration Hydroxyzine HCl 25 mg 03/22/24 10:26 03/29/24 11:19 Hydroxyzine Hcl 25 Mg Tablet PO 25 mg Q12H PRN Administration Itching Levothyroxine Sodium 75 mcg 03/15/24 09:00 03/29/24 05:54 Levothyroxine Sodium 75 Mcg Tablet PO 75 mcg DAILY@0630 MINH Administration Megestrol Acetate 40 mg 03/16/24 13:00 03/29/24 09:04 Megestrol Acetate (*Chemo) 40 Mg Tablet PO 40 mg QID MINH Administration Miconazole Nitrate 1 applic 03/28/24 09:55 03/29/24 09:05 Miconazole Nitrate 2% Cream 30 Gm Tube TOPICAL 1 applic Q12HR MINH Administration Trazodone HCl 100 mg 03/14/24 22:25 03/28/24 21:20 Trazodone Hcl 50 Mg Tablet PO 100 mg HS PRN Administration Insomnia Radiology Results: ITS Impressions Chest X-Ray 03/23/24 08:35 IMPRESSION: 1. No acute cardiopulmonary disease. Quality VTE Prophylaxis VTE prophylaxis: pharmacologic ordered -Patient's previous records reviewed on admission -ER notes reviewed in detail on admission -discussed all findings and current treatment plan with patient/Family/POA -Consultations reviewed for recommendations -Patient's disposition for safe discharge discussed with director of casework Dictation performed by [employer] direct speech recognition software, therefore forest ranger technician variants and typographical errors may occur. Hospitalist MIPS Advance Care Plan I have confirmed that the patient's Advanced Care Plan is present, code status is documented, or surrogate decision maker is listed in patient medical record.: Yes Medication Reconciliation I have utilized all available resources to obtain, update and review the patients current medications (includes all prescriptions, OTC, herbals, cannabis, and nutritional supplements).: Yes The patient is not eligible for med reconciliation; the patient is in a emergent medical situation where delaying treatment would jeopardize the patients health.: No
[2024-03-29 16:35] VITALS: BP 110/49; PULSE 94; RESP 16; TEMP 36.4; O2SAT 96
--- NOTE | 2024-03-29 17:15 | PC.NURSE ---
Spoke with BAG MACHINE ADJUSTER r/t staff nurse concerns of patients continues picking at skin, multiple open wounds that are bleeding and draining. Staff nurse request possible mitts for patient for nonviolent situation. Await futher orders.
[2024-03-29] MEDS: diphenhydrAMINE HCl CAP 25 MG CAPSULE PO (21:29)
[2024-03-29] MEDS: ESCITALOPRAM OXALATE 10 MG TABLET PO (21:29)
[2024-03-29] MEDS: traZODone HCL 50 MG TABLET 100 MG PO (21:30)
[2024-03-30] VITALS: BP 100/81; PULSE 98; RESP 18; TEMP 36.1; O2SAT 94
--- NOTE | 2024-03-30 01:00 | PC.NURSE ---
Took mitts off Juan. Reminded patient to not pick or scratch. Immediately began scratching at upper arms with nurse remaining at bedside. Mitts reapplied juan.
[2024-03-30] MEDS: hydrOXYzine HCL 25 MG TABLET PO ×4 (01:25→23:14)
--- NOTE | 2024-03-30 06:10 | PC.NURSE ---
Removed mitten left hand, patient began picking at neck and right arm immediately, unable to redirect her and had to hold hand to prevent further skin injury until mitten replaced. Incontinent of urine, pericare provided, linens and gown changed. Requires assist of two as patient forgets care being given and rolls and shifts over dirty linens.
[2024-03-30] MEDS: LEVOTHYROXINE SODIUM 75 MCG TABLET PO (06:18)
[2024-03-30] MEDS: GABAPENTIN 100 MG CAPSULE BY MOUTH ×3 (06:18→22:18)
[2024-03-30 08:00] VITALS: BP 105/61; PULSE 89; RESP 16; TEMP 36.1; O2SAT 97
--- NOTE | 2024-03-30 08:13 | P.PNIM_ITS ---
Progress Note: A&P Assessment and Plan (1) Rash: Code(s): R21 - Rash and other nonspecific skin eruption Status: Acute Assessment and Plan: * systemic rash upper and lower extremities chest and back * treat with prednisone added Benadryl for itching 03/16 * Rash all over body, BUE, BLE and inbetween fingers and toes * Could be a form of eczema, however can not rule out scabies. Left message for daughter to call back. * Continue prednisone * Will order permethrin 5% topical cream x1 now. * Start Atarax for itching * Will isolate for possible scabies 03/17 * Rash showing some improvement with permethrin 5% cream * Continue atarax for itching 03/18 * rash improving but still with mild itch * Stopped prednisone * can continue with cream * Bed bugs vs scabies vs systemic dermatitis 03/20 * No change to current treatment plan 03/23/2024 * Ivermectin given yesterday * Permethrin will be administered today * prn medication * skin looks a lot better 03/24 * Finished course of ivermectin and permethrin cream * rash much improved * Atarax for itching 03/25 * No change to current treatment plan 03/27: * Still with mild itch 03/28 * This may be a fungal infection will d/c triamcinolone * Start Miconazole cream 03/30/24: * ordered mittens to protect skin integrity * hydroxyzine scheduled (2) Pneumonia: Qualifiers: Laterality: left Lung location: lower lobe of lung Pneumonia type: due to unspecified organism Qualified Code(s): J18.9 - Pneumonia, unspecified organism Code(s): J18.9 - Pneumonia, unspecified organism Status: Resolved Assessment and Plan: CXR left basilar infiltrates suspicious for pneumonia, normal WBC, afebrile, on room air but does have generalized weakness that has worsened over the last week * given Rocephin and azithromycin in the emergency department * transitioned to oral Augmentin * oxygen p.r.n. * incentive spirometer 03/16 * Continue Augmentin and Azithromycin * Continue IS while awake 03/17 * Continue current treatment plan 03/18 * No change RESOLVED 03/23 Repeat chest xray awaiting result WBC have increased to 23 unknown cause no s/s of infection 03/27: * WBC had trended down likely secondary to medication (3) Generalized weakness: Code(s): R53.1 - Weakness Status: Acute Assessment and Plan: * likely secondary to pneumonia and failure to thrive * PT/OT for evaluation * family requesting SNF 03/16 * Continue PT and OT * Case management following for outpatient rehab needs 03/17 * Continue PT and OT * Will require placement 03/20 * No change * Case coordination working on placement 03/21 * Department of family services contacted as we are still unsuccessful in getting in touch with the daughter. Patient is unable to make decisions for herself. Case management following. * continue PT and OT 03/24 * continue PT and OT 03/25 * No change to current treatment plan 03/26 * Nursing reporting decline in ADLs yesterday and today. She is now requiring a jo ann steady to get her up out of the bed and her balance is worse today * PT and OT orders placed for re-evaluation. 03/27: * PT/OT pending (4) Moderate protein-calorie malnutrition: Code(s): E44.0 - Moderate protein-calorie malnutrition Status: Chronic Assessment and Plan: * secondary to failure to thrive * added protein shakes to each meal * regular diet * Resumed Megace 03/16 * encourage po intake * No change to current treatment plan 03/17 * No change (5) Adult failure to thrive: Code(s): R62.7 - Adult failure to thrive Status: Acute Assessment and Plan: patient has been worsening for the last year patient's passed around a year ago suffering from depression, bipolar disorder and anxiety * motors and generators inspector placement * see above 3 03/16 * Continue PT and OT * Case management working on placement 03/17 * No change 03/25 * Case coordination following. Unsafe discharge. Calls placed to family and department of family services. (6) Depression: Code(s): F32.9 - Major depressive disorder, single episode, unspecified Status: Chronic Assessment and Plan: * Resumed home medications BuSpar and Wellbutrin, citalopram 03/16 * No change (7) Anxiety: Code(s): F41.9 - Anxiety disorder, unspecified Status: Chronic Assessment and Plan: * Resumed home medications BuSpar and Wellbutrin 03/16 * No change (8) Bipolar disorder: Code(s): F31.9 - Bipolar disorder, unspecified Status: Chronic Assessment and Plan: * Resumed home medications divalproex 03/16 * No change (9) Hypothyroidism: Code(s): E03.9 - Hypothyroidism, unspecified Status: Chronic Assessment and Plan: * Resumed Levothyroxine 03/16 * Will check TSH level * Continue Synthroid 03/17 * TSH 0.89 (10) Hypotension: Code(s): I95.9 - Hypotension, unspecified Status: Acute Assessment and Plan: * resume patient's midodrine * monitor BP per unit protocol 03/16 * No change Plan Code status: Full code per patient DVT prophylaxis: Lovenox Stress ulcer prophylaxis: NA PT/OT notes: PT/OT re-evaluation Disposition: Patient was admitted to the medical unit further evaluation and treatment of pneumonia and generalized weakness. Patient is medically cleared for discharge however we do no t have a safe discharge at this time. Adult protective services was notified and investigating. Currently unable to go to a SNF due to financial issues. Time Spent With Patient Time with patient: 15 - 25 minutes Subjective Date/time seen: 03/30/24 08:13 Interval history: Patient is a 68-year-old female who was admitted to the medical unit for further evaluation and treatment generalized weakness, pneumonia, and failure to thrive 03/30/2024: Assumed Care Patient with no complaints but still itching and picking at scabs added order for mittens nonviolent to protect skin integrity, patient tolerating well removed during meals and ADLs. continues admission awaiting on adult protective Services and financial services for safe discharge. Review of Systems Review of Systems: All systems reviewed & are unremarkable except as noted in HPI and below Exam Narrative: General: failure to thrive, very malnourished Cardiac: Normal S1 and S2. No murmur, gallops or friction rubs, peripheral pulses intact. Respiratory: Lungs clear to auscultation, no adventitious lung sounds, currently on room air Gastrointestinal: soft, non-distended, non-tender, normoactive bowel sounds. : voiding without difficulty. Extremities: moves all extremities well, no edema Skin: rash much improved. Neuro: Alert Objective Data Vital Signs Vital Signs: Vital Signs - 24 hr 03/29/24 16:35 03/30/24 00:00 Temperature 97.5 F L 96.9 F L Pulse Rate 94 98 Respiratory Rate 16 18 Blood Pressure 110/49 L 100/81 Pulse Oximetry 96 94 Oxygen Delivery Room Air Room Air Intake/Output Intake/Output: Intake & Output 03/27/24 03/28/24 03/29/24 03/30/24 23:59 23:59 23:59 23:59 Intake Total 1670 1940 1410 100 Balance 1670 1940 1410 100 Meds/Results Medications: Active Medications Generic Name Dose Route Start Last Admin Trade Name Freq PRN Reason Stop Dose Admin Acetaminophen 650 mg 03/14/24 20:34 03/21/24 20:20 Acetaminophen 325 Mg Tablet PO 650 mg Q4H PRN Administration Mild Pain (1-3) or Fever Al Hydrox/Mg Hydrox/Simethicone 30 ml 03/14/24 20:34 Mag Hydrox/Al Hydrox/Simeth 30 Ml Udc PO QID PRN Dyspepsia Ascorbic Acid 500 mg 03/15/24 09:00 03/29/24 17:35 Ascorbic Acid 500 Mg Tablet PO 500 mg BID MINH Administration Aspirin 81 mg 03/15/24 09:00 03/29/24 09:05 Aspirin 81 Mg Enteric Tablet PO 81 mg QAM MINH Administration Atorvastatin Calcium 80 mg 03/15/24 09:00 03/29/24 09:04 Atorvastatin 40 Mg Tablet PO 80 mg DAILY MINH Administration Bupropion HCl 150 mg 03/15/24 09:00 03/29/24 09:05 Bupropion Hcl Xl (24 Hr) 150 Mg Tabcr PO 150 mg DAILY MINH Administration Buspirone HCl 15 mg 03/15/24 09:00 03/29/24 17:35 Buspirone Hcl 5 Mg Tablet PO 15 mg TID MINH Administration Clopidogrel Bisulfate 75 mg 03/15/24 09:00 03/29/24 09:05 Clopidogrel Bisulfate 75 Mg Tablet PO 75 mg DAILY MINH Administration Cyanocobalamin 500 mcg 03/15/24 09:00 03/29/24 09:05 Cyanocobalamin 500 Mcg Tablet PO 500 mcg QAM MINH Administration Diphenhydramine HCl 25 mg 03/15/24 10:06 03/29/24 21:29 Diphenhydramine Hcl Cap 25 Mg Capsule PO 25 mg Q6H PRN Administration Itching Divalproex Sodium 500 mg 03/14/24 22:15 03/29/24 21:[address] 250 Mg Tabec PO 500 mg Q12H MINH Administration Enoxaparin Sodium 40 mg 03/16/24 09:00 03/29/24 09:04 Enoxaparin 40 Mg/0.4 Ml Syringe SUB-Q 40 mg DAILY MINH Administration Escitalopram Oxalate 10 mg 03/14/24 21:00 03/29/24 21:29 Escitalopram Oxalate 10 Mg Tablet PO 10 mg HS MINH Administration Folic Acid 1 mg 03/15/24 09:00 03/29/24 09:05 Folic Acid 1 Mg Tablet PO 1 mg DAILY MINH Administration Gabapentin 100 mg 03/14/24 22:00 03/30/24 06:18 Gabapentin 100 Mg Capsule BY MOUTH 100 mg Q8HR MINH Administration Hydroxyzine HCl 25 mg 03/29/24 18:00 03/30/24 06:23 Hydroxyzine Hcl 25 Mg Tablet PO 25 mg Q6HR MINH Administration Levothyroxine Sodium 75 mcg 03/15/24 09:00 03/30/24 06:18 Levothyroxine Sodium 75 Mcg Tablet PO 75 mcg DAILY@0630 MINH Administration Megestrol Acetate 40 mg 03/16/24 13:00 03/29/24 21:30 Megestrol Acetate (*Chemo) 40 Mg Tablet PO 40 mg QID MINH Administration Miconazole Nitrate 1 applic 03/28/24 09:55 03/29/24 21:32 Miconazole Nitrate 2% Cream 30 Gm Tube TOPICAL 1 applic Q12HR MINH Administration Trazodone HCl 100 mg 03/14/24 22:25 03/29/24 21:30 Trazodone Hcl 50 Mg Tablet PO 100 mg HS PRN Administration Insomnia Radiology Results: ITS Impressions Chest X-Ray 03/23/24 08:35 IMPRESSION: 1. No acute cardiopulmonary disease. Quality VTE Prophylaxis VTE prophylaxis: pharmacologic ordered -Patient's previous records reviewed on admission -ER notes reviewed in detail on admission -discussed all findings and current treatment plan with patient/Family/POA -Consultations reviewed for recommendations -Patient's disposition for safe discharge discussed with clinical case manager Dictation performed by [employer] direct speech recognition software, therefore plunger scoop operator variants and typographical errors may occur. Hospitalist MIPS Advance Care Plan I have confirmed that the patient's Advanced Care Plan is present, code status is documented, or surrogate decision maker is listed in patient medical record.: Yes Medication Reconciliation I have utilized all available resources to obtain, update and review the patients current medications (includes all prescriptions, OTC, herbals, cannabis, and nutritional supplements).: Yes The patient is not eligible for med reconciliation; the patient is in a emergent medical situation where delaying treatment would jeopardize the patients health.: No
--- NOTE | 2024-03-30 08:13 | PM.IMPN ---
Progress Note: A&P Assessment and Plan (1) Rash: Code(s): R21 - Rash and other nonspecific skin eruption Status: Acute Assessment and Plan: systemic rash upper and lower extremities chest and back treat with prednisone added Benadryl for itching 03/16 Rash all over body, BUE, BLE and inbetween fingers and toes Could be a form of eczema, however can not rule out scabies. Left message for daughter to call back. Continue prednisone Will order permethrin 5% topical cream x1 now. Start Atarax for itching Will isolate for possible scabies 03/17 Rash showing some improvement with permethrin 5% cream Continue atarax for itching 03/18 rash improving but still with mild itch Stopped prednisone can continue with cream Bed bugs vs scabies vs systemic dermatitis 03/20 No change to current treatment plan 03/23/2024 Ivermectin given yesterday Permethrin will be administered today prn medication skin looks a lot better 03/24 Finished course of ivermectin and permethrin cream rash much improved Atarax for itching 03/25 No change to current treatment plan 03/27: Still with mild itch 03/28 This may be a fungal infection will d/c triamcinolone Start Miconazole cream 03/30/24: ordered mittens to protect skin integrity hydroxyzine scheduled (2) Pneumonia: Qualifiers: Laterality: left Lung location: lower lobe of lung Pneumonia type: due to unspecified organism Qualified Code(s): J18.9 - Pneumonia, unspecified organism Code(s): J18.9 - Pneumonia, unspecified organism Status: Resolved Assessment and Plan: CXR left basilar infiltrates suspicious for pneumonia, normal WBC, afebrile, on room air but does have generalized weakness that has worsened over the last week given Rocephin and azithromycin in the emergency department transitioned to oral Augmentin oxygen p.r.n. incentive spirometer 03/16 Continue Augmentin and Azithromycin Continue IS while awake 03/17 Continue current treatment plan 03/18 No change RESOLVED 03/23 Repeat chest xray awaiting result WBC have increased to 23 unknown cause no s/s of infection 03/27: WBC had trended down likely secondary to medication (3) Generalized weakness: Code(s): R53.1 - Weakness Status: Acute Assessment and Plan: likely secondary to pneumonia and failure to thrive PT/OT for evaluation family requesting SNF 03/16 Continue PT and OT Case management following for outpatient rehab needs 03/17 Continue PT and OT Will require placement 03/20 No change Case coordination working on placement 03/21 Department of family services contacted as we are still unsuccessful in getting in touch with the daughter. Patient is unable to make decisions for herself. Case management following. continue PT and OT 03/24 continue PT and OT 03/25 No change to current treatment plan 03/26 Nursing reporting decline in ADLs yesterday and today. She is now requiring a jo ann steady to get her up out of the bed and her balance is worse today PT and OT orders placed for re-evaluation. 03/27: PT/OT pending (4) Moderate protein-calorie malnutrition: Code(s): E44.0 - Moderate protein-calorie malnutrition Status: Chronic Assessment and Plan: secondary to failure to thrive added protein shakes to each meal regular diet Resumed Megace 03/16 encourage po intake No change to current treatment plan 03/17 No change (5) Adult failure to thrive: Code(s): R62.7 - Adult failure to thrive Status: Acute Assessment and Plan: patient has been worsening for the last year patient's passed around a year ago suffering from depression, bipolar disorder and anxiety retirement placement see above 3 03/16 Continue PT and OT Case management working on placement 03/17 No change 03/25 Case coordination following. Unsafe discharge. Calls placed to family and department of family services. (6) Depression: Code(s): F32.9 - Major depressive disorder, single episode, unspecified Status: Chronic Assessment and Plan: Resumed home medications BuSpar and Wellbutrin, citalopram 03/16 No change (7) Anxiety: Code(s): F41.9 - Anxiety disorder, unspecified Status: Chronic Assessment and Plan: Resumed home medications BuSpar and Wellbutrin 03/16 No change (8) Bipolar disorder: Code(s): F31.9 - Bipolar disorder, unspecified Status: Chronic Assessment and Plan: Resumed home medications divalproex 03/16 No change (9) Hypothyroidism: Code(s): E03.9 - Hypothyroidism, unspecified Status: Chronic Assessment and Plan: Resumed Levothyroxine 03/16 Will check TSH level Continue Synthroid 03/17 TSH 0.89 (10) Hypotension: Code(s): I95.9 - Hypotension, unspecified Status: Acute Assessment and Plan: resume patient's midodrine monitor BP per unit protocol 03/16 No change Plan Code status: Full code per patient DVT prophylaxis: Lovenox Stress ulcer prophylaxis: NA PT/OT notes: PT/OT re-evaluation Disposition: Patient was admitted to the medical unit further evaluation and treatment of pneumonia and generalized weakness. Patient is medically cleared for discharge however we do no t have a safe discharge at this time. Adult protective services was notified and investigating. Currently unable to go to a SNF due to financial issues. Time Spent With Patient Time with patient: 15 - 25 minutes Subjective Date/time seen: 03/30/24 08:13 Interval history: Patient is a 68-year-old female who was admitted to the medical unit for further evaluation and treatment generalized weakness, pneumonia, and failure to thrive 03/30/2024: Assumed Care Patient with no complaints but still itching and picking at scabs added order for mittens nonviolent to protect skin integrity, patient tolerating well removed during meals and ADLs. continues admission awaiting on adult protective Services and financial services for safe discharge. Review of Systems Review of Systems: All systems reviewed & are unremarkable except as noted in HPI and below Exam Narrative: General: failure to thrive, very malnourished Cardiac: Normal S1 and S2. No murmur, gallops or friction rubs, peripheral pulses intact. Respiratory: Lungs clear to auscultation, no adventitious lung sounds, currently on room air Gastrointestinal: soft, non-distended, non-tender, normoactive bowel sounds. : voiding without difficulty. Extremities: moves all extremities well, no edema Skin: rash much improved. Neuro: Alert Objective Data Vital Signs Vital Signs: Vital Signs - 24 hr 03/29/24 16:35 03/30/24 00:00 Temperature 97.5 F L 96.9 F L Pulse Rate 94 98 Respiratory Rate 16 18 Blood Pressure 110/49 L 100/81 Pulse Oximetry 96 94 Oxygen Delivery Room Air Room Air Intake/Output Intake/Output: Intake & Output 03/27/24 03/28/24 03/29/24 03/30/24 23:59 23:59 23:59 23:59 Intake Total 1670 1940 1410 100 Balance 1670 1939 1410 100 Meds/Results Medications: Active Medications Generic Name Dose Route Start Last Admin Trade Name Freq PRN Reason Stop Dose Admin Acetaminophen 650 mg 03/14/24 20:34 03/21/24 20:20 Acetaminophen 325 Mg Tablet PO 650 mg Q4H PRN Administration Mild Pain (1-3) or Fever Al Hydrox/Mg Hydrox/Simethicone 30 ml 03/14/24 20:34 Mag Hydrox/Al Hydrox/Simeth 30 Ml Udc PO QID PRN Dyspepsia Ascorbic Acid 500 mg 03/15/24 09:00 03/29/24 17:35 Ascorbic Acid 500 Mg Tablet PO 500 mg BID [facility] Administration Aspirin 81 mg 03/15/24 09:00 03/29/24 09:05 Aspirin 81 Mg Enteric Tablet PO 81 mg QAM [facility] Administration Atorvastatin Calcium 80 mg 03/15/24 09:00 03/29/24 09:04 Atorvastatin 40 Mg Tablet PO 80 mg DAILY [facility] Administration Bupropion HCl 150 mg 03/15/24 09:00 03/29/24 09:05 Bupropion Hcl Xl (24 Hr) 150 Mg Tabcr PO 150 mg DAILY [facility] Administration Buspirone HCl 15 mg 03/15/24 09:00 03/29/24 17:35 Buspirone Hcl 5 Mg Tablet PO 15 mg TID [facility] Administration Clopidogrel Bisulfate 75 mg 03/15/24 09:00 03/29/24 09:05 Clopidogrel Bisulfate 75 Mg Tablet PO 75 mg DAILY [facility] Administration Cyanocobalamin 500 mcg 03/15/24 09:00 03/29/24 09:05 Cyanocobalamin 500 Mcg Tablet PO 500 mcg QAM [facility] Administration Diphenhydramine HCl 25 mg 03/15/24 10:06 03/29/24 21:29 Diphenhydramine Hcl Cap 25 Mg Capsule PO 25 mg Q6H PRN Administration Itching Divalproex Sodium 500 mg 03/14/24 22:15 03/29/24 21:[address] 250 Mg Tabec PO 500 mg Q12H [facility] Administration Enoxaparin Sodium 40 mg 03/16/24 09:00 03/29/24 09:04 Enoxaparin 40 Mg/0.4 Ml Syringe SUB-Q 40 mg DAILY [facility] Administration Escitalopram Oxalate 10 mg 03/14/24 21:00 03/29/24 21:29 Escitalopram Oxalate 10 Mg Tablet PO 10 mg HS [facility] Administration Folic Acid 1 mg 03/15/24 09:00 03/29/24 09:05 Folic Acid 1 Mg Tablet PO 1 mg DAILY [facility] Administration Gabapentin 100 mg 03/14/24 22:00 03/30/24 06:18 Gabapentin 100 Mg Capsule BY MOUTH 100 mg Q8HR [facility] Administration Hydroxyzine HCl 25 mg 03/29/24 18:00 03/30/24 06:23 Hydroxyzine Hcl 25 Mg Tablet PO 25 mg Q6HR [facility] Administration Levothyroxine Sodium 75 mcg 03/15/24 09:00 03/30/24 06:18 Levothyroxine Sodium 75 Mcg Tablet PO 75 mcg DAILY@0630 [facility] Administration Megestrol Acetate 40 mg 03/16/24 13:00 03/29/24 21:30 Megestrol Acetate (*Chemo) 40 Mg Tablet PO 40 mg QID [facility] Administration Miconazole Nitrate 1 applic 03/28/24 09:55 03/29/24 21:32 Miconazole Nitrate 2% Cream 30 Gm Tube TOPICAL 1 applic Q12HR [facility] Administration Trazodone HCl 100 mg 03/14/24 22:25 03/29/24 21:30 Trazodone Hcl 50 Mg Tablet PO 100 mg HS PRN Administration Insomnia Radiology Results: ITS Impressions Chest X-Ray 03/23/24 08:35 IMPRESSION: 1. No acute cardiopulmonary disease. Quality VTE Prophylaxis VTE prophylaxis: pharmacologic ordered -Patient's previous records reviewed on admission -ER notes reviewed in detail on admission -discussed all findings and current treatment plan with patient/Family/POA -Consultations reviewed for recommendations -Patient's disposition for safe discharge discussed with caser Dictation performed by [email or web address] direct speech recognition software, therefore molasses and caramel operator variants and typographical errors may occur. Hospitalist MIPS Advance Care Plan I have confirmed that the patient's Advanced Care Plan is present, code status is documented, or surrogate decision maker is listed in patient medical record.: Yes Medication Reconciliation I have utilized all available resources to obtain, update and review the patients current medications (includes all prescriptions, OTC, herbals, cannabis, and nutritional supplements).: Yes The patient is not eligible for med reconciliation; the patient is in a emergent medical situation where delaying treatment would jeopardize the patients health.: No
[2024-03-30] MEDS: ENOXAPARIN 40 MG/0.4 ML SYRINGE SUB-Q (09:10)
[2024-03-30] MEDS: busPIRone HCL 5 MG TABLET 15 MG PO ×3 (09:11→17:15)
[2024-03-30] MEDS: ASCORBIC ACID 500 MG TABLET PO ×2 (09:12→17:15)
[2024-03-30] MEDS: FOLIC ACID 1 MG TABLET PO (09:12)
[2024-03-30] MEDS: CYANOCOBALAMIN 500 MCG TABLET PO (09:12)
[2024-03-30] MEDS: buPROPion HCL XL (24 HR) 150 MG TABCR PO (09:12)
[2024-03-30] MEDS: ATORVASTATIN 40 MG TABLET 80 MG PO (09:13)
[2024-03-30] MEDS: CLOPIDOGREL BISULFATE 75 MG TABLET PO (09:13)
[2024-03-30] MEDS: DIVALPROEX SODIUM DR 250 MG TABEC 500 MG PO ×2 (09:13→22:18)
[2024-03-30] MEDS: ASPIRIN 81 MG ENTERIC TABLET PO (09:13)
[2024-03-30] MEDS: MICONAZOLE NITRATE 2% CREAM 30 GM TUBE 1 APPLIC TOPICAL (09:14)
[2024-03-30] MEDS: MEGESTROL ACETATE (*CHEMO) 40 MG TABLET PO ×4 (09:14→20:25)
[2024-03-30] MEDS: HYDROCORTISONE 2.5% CREAM 30 GM TUBE 1 APPLIC TOPICAL ×2 (12:07→20:25)
[2024-03-30 16:00] VITALS: BP 106/64; PULSE 94; RESP 16; TEMP 35.9; O2SAT 96
[2024-03-30 20:00] VITALS: PULSE 94; RESP 16; O2SAT 96
[2024-03-30] MEDS: ACETAMINOPHEN 325 MG TABLET 650 MG PO (20:25)
[2024-03-30] MEDS: ESCITALOPRAM OXALATE 10 MG TABLET PO (20:25)
[2024-03-30] MEDS: diphenhydrAMINE HCl CAP 25 MG CAPSULE PO (20:25)
[2024-03-30] MEDS: traZODone HCL 50 MG TABLET 100 MG PO (20:25)
[2024-03-30] MEDS: [UNRECOGNIZED DRUG - REMARK] XX (22:18)
[2024-03-31] VITALS: BP 119/62; PULSE 94; RESP 17; TEMP 36.3; O2SAT 95
[2024-03-31] MEDS: hydrOXYzine HCL 25 MG TABLET PO ×4 (05:59→23:45)
[2024-03-31] MEDS: LEVOTHYROXINE SODIUM 75 MCG TABLET PO (05:59)
[2024-03-31] MEDS: GABAPENTIN 100 MG CAPSULE BY MOUTH ×3 (05:59→22:16)
[2024-03-31 06:30] LABS: Hematocrit 32.5 % (35.0-42.0); Hemoglobin 10.2 g/dL (11.7-13.8); Immature Platelet Fraction Pct 0.9 % (1.0-7.0); Mean Corpuscular HGB Conc 31.4 g/dL (32-36); Mean Corpuscular Hemoglobin 30.3 pg (27.0-31.0); Mean Corpuscular Volume 96.4 fL (78.0-102.0); Platelet Count Result 611 K/mm3 (150-420); Red Blood Count 3.37 M/mm3 (4.20-5.40); Red Cell Distribution Width 15.4 % (11.6-14.4); White Blood Count 14.2 K/mm3 (4.8-10.8)
[2024-03-31 06:43] LABS: Alanine Aminotransferase 21 U/L (14-59); Alkaline Phosphatase 73 U/L (46-116); Anion Gap 6 mmol/L (4-12); Aspartate Amino Transferase 12 U/L (15-37); Bilirubin,Total 0.3 mg/dL (0.00-1.00); Blood Urea Nitrogen 14 mg/dL (7-18); Calcium 9.2 mg/dL (8.5-10.1); Carbon Dioxide 30 mmol/L (21-32); Chloride 99 mmol/L (98-108); Estimated CRCL calculation 48 ml/min; Estimated Glomerular Filt Rate > 60; Glucose 78 mg/dL (70-99); Osmolality Calculated 279 mOsm/kg (285-295); Potassium 4.8 mmol/L (3.5-5.1); Sodium 135 mmol/L (136-145); Total Protein 6.7 g/dL (6.4-8.2)
[2024-03-31 08:00] VITALS: BP 138/94; PULSE 91; RESP 16; TEMP 35.8; O2SAT 94
--- NOTE | 2024-03-31 08:07 | P.PNIM_ITS ---
Progress Note: A&P Assessment and Plan (1) Rash: Code(s): R21 - Rash and other nonspecific skin eruption Status: Acute Assessment and Plan: * systemic rash upper and lower extremities chest and back * treat with prednisone added Benadryl for itching 03/16 * Rash all over body, BUE, BLE and inbetween fingers and toes * Could be a form of eczema, however can not rule out scabies. Left message for daughter to call back. * Continue prednisone * Will order permethrin 5% topical cream x1 now. * Start Atarax for itching * Will isolate for possible scabies 03/17 * Rash showing some improvement with permethrin 5% cream * Continue atarax for itching 03/18 * rash improving but still with mild itch * Stopped prednisone * can continue with cream * Bed bugs vs scabies vs systemic dermatitis 03/20 * No change to current treatment plan 03/23/2024 * Ivermectin given yesterday * Permethrin will be administered today * prn medication * skin looks a lot better 03/24 * Finished course of ivermectin and permethrin cream * rash much improved * Atarax for itching 03/25 * No change to current treatment plan 03/27: * Still with mild itch 03/28 * This may be a fungal infection will d/c triamcinolone * Start Miconazole cream 03/30/24: * ordered mittens to protect skin integrity * hydroxyzine scheduled * hydrocortisone cream (2) Pneumonia: Qualifiers: Laterality: left Lung location: lower lobe of lung Pneumonia type: due to unspecified organism Qualified Code(s): J18.9 - Pneumonia, unspecified organism Code(s): J18.9 - Pneumonia, unspecified organism Status: Resolved Assessment and Plan: CXR left basilar infiltrates suspicious for pneumonia, normal WBC, afebrile, on room air but does have generalized weakness that has worsened over the last week * given Rocephin and azithromycin in the emergency department * transitioned to oral Augmentin * oxygen p.r.n. * incentive spirometer 03/16 * Continue Augmentin and Azithromycin * Continue IS while awake 03/17 * Continue current treatment plan 03/18 * No change RESOLVED 03/23 Repeat chest xray awaiting result WBC have increased to 23 unknown cause no s/s of infection 03/27: * WBC had trended down likely secondary to medication (3) Generalized weakness: Code(s): R53.1 - Weakness Status: Acute Assessment and Plan: * likely secondary to pneumonia and failure to thrive * PT/OT for evaluation * family requesting SNF 03/16 * Continue PT and OT * Case management following for outpatient rehab needs 03/17 * Continue PT and OT * Will require placement 03/20 * No change * Case coordination working on placement 03/21 * Department of family services contacted as we are still unsuccessful in getting in touch with the daughter. Patient is unable to make decisions for herself. Case management following. * continue PT and OT 03/24 * continue PT and OT 03/25 * No change to current treatment plan 03/26 * Nursing reporting decline in ADLs yesterday and today. She is now requiring a jo ann steady to get her up out of the bed and her balance is worse today * PT and OT orders placed for re-evaluation. 03/27: * PT/OT pending (4) Moderate protein-calorie malnutrition: Code(s): E44.0 - Moderate protein-calorie malnutrition Status: Chronic Assessment and Plan: * secondary to failure to thrive * added protein shakes to each meal * regular diet * Resumed Megace 03/16 * encourage po intake * No change to current treatment plan 03/17 * No change (5) Adult failure to thrive: Code(s): R62.7 - Adult failure to thrive Status: Acute Assessment and Plan: patient has been worsening for the last year patient's passed around a year ago suffering from depression, bipolar disorder and anxiety * intermodal dispatcher placement * see above 3 03/16 * Continue PT and OT * Case management working on placement 03/17 * No change 03/25 * Case coordination following. Unsafe discharge. Calls placed to family and department of family services. (6) Depression: Code(s): F32.9 - Major depressive disorder, single episode, unspecified Status: Chronic Assessment and Plan: * Resumed home medications BuSpar and Wellbutrin, citalopram 03/16 * No change (7) Anxiety: Code(s): F41.9 - Anxiety disorder, unspecified Status: Chronic Assessment and Plan: * Resumed home medications BuSpar and Wellbutrin 03/16 * No change (8) Bipolar disorder: Code(s): F31.9 - Bipolar disorder, unspecified Status: Chronic Assessment and Plan: * Resumed home medications divalproex 03/16 * No change (9) Hypothyroidism: Code(s): E03.9 - Hypothyroidism, unspecified Status: Chronic Assessment and Plan: * Resumed Levothyroxine 03/16 * Will check TSH level * Continue Synthroid 03/17 * TSH 0.89 (10) Hypotension: Code(s): I95.9 - Hypotension, unspecified Status: Acute Assessment and Plan: * resume patient's midodrine * monitor BP per unit protocol 03/16 * No change Plan Code status: Full code per patient DVT prophylaxis: Lovenox Stress ulcer prophylaxis: VIRGEN PT/OT notes: PT/OT re-evaluation Disposition: Patient was admitted to the medical unit further evaluation and treatment of pneumonia and generalized weakness. Patient is medically cleared for discharge however we do no t have a safe discharge at this time. Adult protective services was notified and investigating. Currently unable to go to a SNF due to financial issues. Time Spent With Patient Time with patient: 15 - 25 minutes Subjective Date/time seen: 03/31/24 08:07 Interval history: Patient is a 68-year-old female who was admitted to the medical unit for further evaluation and treatment generalized weakness, pneumonia, and failure to thrive 03/30/2024: Assumed Care Patient with no complaints Hydrocortisone cream helping with itch mittens nonviolent to protect skin integrity, continues admission awaiting on adult protective Services and financial services for safe discharge. Review of Systems Review of Systems: All systems reviewed & are unremarkable except as noted in HPI and below Exam Narrative: General: failure to thrive, very malnourished Cardiac: Normal S1 and S2. No murmur, gallops or friction rubs, peripheral pulses intact. Respiratory: Lungs clear to auscultation, no adventitious lung sounds, currently on room air Gastrointestinal: soft, non-distended, non-tender, normoactive bowel sounds. : voiding without difficulty. Extremities: moves all extremities well, no edema Skin: rash much improved. Neuro: Alert Objective Data Vital Signs Vital Signs: Vital Signs - 24 hr 03/30/24 16:00 03/30/24 20:00 03/31/24 00:00 Temperature 96.6 F L 97.3 F L Pulse Rate 94 94 94 Respiratory Rate 16 16 17 Blood Pressure 106/64 119/62 Pulse Oximetry 96 96 95 Oxygen Delivery Room Air Room Air Room Air Intake/Output Intake/Output: Intake & Output 03/28/24 03/29/24 03/30/24 03/31/24 23:59 23:59 23:59 23:59 Intake Total 1940 1410 2100 240 Balance 1940 1410 2100 240 Meds/Results Medications: Active Medications Generic Name Dose Route Start Last Admin Trade Name Freq PRN Reason Stop Dose Admin Acetaminophen 650 mg 03/14/24 20:34 03/30/24 20:25 Acetaminophen 325 Mg Tablet PO 650 mg Q4H PRN Administration Mild Pain (1-3) or Fever Al Hydrox/Mg Hydrox/Simethicone 30 ml 03/14/24 20:34 Mag Hydrox/Al Hydrox/Simeth 30 Ml Udc PO QID PRN Dyspepsia Ascorbic Acid 500 mg 03/15/24 09:00 03/30/24 17:15 Ascorbic Acid 500 Mg Tablet PO 500 mg BID [facility] Administration Aspirin 81 mg 03/15/24 09:00 03/30/24 09:13 Aspirin 81 Mg Enteric Tablet PO 81 mg QAM [facility] Administration Atorvastatin Calcium 80 mg 03/15/24 09:00 03/30/24 09:13 Atorvastatin 40 Mg Tablet PO 80 mg DAILY [facility] Administration Bupropion HCl 150 mg 03/15/24 09:00 03/30/24 09:12 Bupropion Hcl Xl (24 Hr) 150 Mg Tabcr PO 150 mg DAILY [facility] Administration Buspirone HCl 15 mg 03/15/24 09:00 03/30/24 17:15 Buspirone Hcl 5 Mg Tablet PO 15 mg TID [facility] Administration Clopidogrel Bisulfate 75 mg 03/15/24 09:00 03/30/24 09:13 Clopidogrel Bisulfate 75 Mg Tablet PO 75 mg DAILY [facility] Administration Cyanocobalamin 500 mcg 03/15/24 09:00 03/30/24 09:12 Cyanocobalamin 500 Mcg Tablet PO 500 mcg QAM [facility] Administration Diphenhydramine HCl 25 mg 03/15/24 10:06 03/30/24 20:25 Diphenhydramine Hcl Cap 25 Mg Capsule PO 25 mg Q6H PRN Administration Itching Divalproex Sodium 500 mg 03/14/24 22:15 03/30/24 22:[address] 250 Mg Tabec PO 500 mg Q12H [facility] Administration Enoxaparin Sodium 40 mg 03/16/24 09:00 03/30/24 09:10 Enoxaparin 40 Mg/0.4 Ml Syringe SUB-Q 40 mg DAILY [facility] Administration Escitalopram Oxalate 10 mg 03/14/24 21:00 03/30/24 20:25 Escitalopram Oxalate 10 Mg Tablet PO 10 mg HS [facility] Administration Folic Acid 1 mg 03/15/24 09:00 03/30/24 09:12 Folic Acid 1 Mg Tablet PO 1 mg DAILY [facility] Administration Gabapentin 100 mg 03/14/24 22:00 03/31/24 05:59 Gabapentin 100 Mg Capsule BY MOUTH 100 mg Q8HR [facility] Administration Hydrocortisone 1 applic 03/30/24 09:30 03/30/24 20:25 Hydrocortisone 2.5% Cream 30 Gm Tube TOPICAL 1 applic Q12HR [facility] Administration Hydroxyzine HCl 25 mg 03/29/24 18:00 02/02/25 05:59 Hydroxyzine Hcl 25 Mg Tablet PO 25 mg Q6HR [facility] Administration Levothyroxine Sodium 75 mcg 03/15/24 09:00 03/31/24 05:59 Levothyroxine Sodium 75 Mcg Tablet PO 75 mcg DAILY@0630 [facility] Administration Megestrol Acetate 40 mg 03/16/24 13:00 03/30/24 20:25 Megestrol Acetate (*Chemo) 40 Mg Tablet PO 40 mg QID [facility] Administration Miscellaneous Information 0 each 03/30/24 00:01 03/30/24 22:18 Hydrocortisone - What Is The Application Site? XX 04/29/24 00:00 1 each CLARIFY [facility] Administration Trazodone HCl 100 mg 03/14/24 22:25 03/30/24 20:25 Trazodone Hcl 50 Mg Tablet PO 100 mg HS PRN Administration Insomnia Radiology Results: ITS Impressions Chest X-Ray 03/23/24 08:35 IMPRESSION: 1. No acute cardiopulmonary disease. Labs Labs: Laboratory Results - last 24 hr 03/31/24 06:01 WBC 14.2 H RBC 3.37 L Hgb 10.2 L Hct 32.5 L MCV 96.4 MCH 30.3 MCHC 31.4 L RDW 15.4 H Plt Count 611 H MPV 9.0 L % Immature Plt Fraction 0.9 L Sodium 135 L Potassium 4.8 Chloride 99 Carbon Dioxide 30 Anion Gap 6 BUN 14 Creatinine 0.74 Estim Creat Clear Calc 48 Estimated GFR > 60 Glucose 78 Calculated Osmolality 279 L Calcium 9.2 Total Bilirubin 0.3 AST 12 L ALT 21 Alkaline Phosphatase 73 Total Protein 6.7 Albumin 2.0 L Quality VTE Prophylaxis VTE prophylaxis: pharmacologic ordered -Patient's previous records reviewed on admission -ER notes reviewed in detail on admission -discussed all findings and current treatment plan with patient/Family/POA -Consultations reviewed for recommendations -Patient's disposition for safe discharge discussed with family caseworker Dictation performed by [employer] direct speech recognition software, therefore animal killer variants and typographical errors may occur. Hospitalist MIPS Advance Care Plan I have confirmed that the patient's Advanced Care Plan is present, code status is documented, or surrogate decision maker is listed in patient medical record.: Yes Medication Reconciliation I have utilized all available resources to obtain, update and review the patients current medications (includes all prescriptions, OTC, herbals, cannabis, and nutritional supplements).: Yes The patient is not eligible for med reconciliation; the patient is in a emergent medical situation where delaying treatment would jeopardize the patients health.: No
[2024-03-31] MEDS: ENOXAPARIN 40 MG/0.4 ML SYRINGE SUB-Q (08:39)
[2024-03-31] MEDS: busPIRone HCL 5 MG TABLET 15 MG PO ×3 (08:40→17:05)
[2024-03-31] MEDS: buPROPion HCL XL (24 HR) 150 MG TABCR PO (08:40)
[2024-03-31] MEDS: CLOPIDOGREL BISULFATE 75 MG TABLET PO (08:41)
[2024-03-31] MEDS: ASPIRIN 81 MG ENTERIC TABLET PO (08:41)
[2024-03-31] MEDS: ATORVASTATIN 40 MG TABLET 80 MG PO (08:42)
[2024-03-31] MEDS: MEGESTROL ACETATE (*CHEMO) 40 MG TABLET PO ×4 (08:42→20:43)
[2024-03-31] MEDS: ASCORBIC ACID 500 MG TABLET PO ×2 (08:42→17:07)
[2024-03-31] MEDS: CYANOCOBALAMIN 500 MCG TABLET PO (08:43)
[2024-03-31] MEDS: FOLIC ACID 1 MG TABLET PO (08:43)
[2024-03-31] MEDS: HYDROCORTISONE 2.5% CREAM 30 GM TUBE 1 APPLIC TOPICAL ×2 (08:43→20:43)
[2024-03-31] MEDS: DIVALPROEX SODIUM DR 250 MG TABEC 500 MG PO ×2 (10:28→22:16)
[2024-03-31 16:00] VITALS: BP 86/74; PULSE 97; RESP 16; TEMP 35.9; O2SAT 100
[2024-03-31 20:00] VITALS: PULSE 97; RESP 16; O2SAT 100
[2024-03-31] MEDS: traZODone HCL 50 MG TABLET 100 MG PO (20:43)
[2024-03-31] MEDS: ESCITALOPRAM OXALATE 10 MG TABLET PO (20:43)
[2024-03-31] MEDS: ACETAMINOPHEN 325 MG TABLET 650 MG PO (20:43)
[2024-03-31] MEDS: diphenhydrAMINE HCl CAP 25 MG CAPSULE PO (20:43)
[2024-03-31 23:56] VITALS: BP 130/56; PULSE 95; RESP 16; TEMP 36.7; O2SAT 95
[2024-04-01] MEDS: GABAPENTIN 100 MG CAPSULE BY MOUTH ×3 (05:34→21:29)
[2024-04-01] MEDS: hydrOXYzine HCL 25 MG TABLET PO ×3 (05:34→17:09)
[2024-04-01] MEDS: LEVOTHYROXINE SODIUM 75 MCG TABLET PO (05:34)
[2024-04-01 08:00] VITALS: BP 113/61; PULSE 83; RESP 18; TEMP 36.1; O2SAT 96
[2024-04-01] MEDS: ENOXAPARIN 40 MG/0.4 ML SYRINGE SUB-Q (08:28)
[2024-04-01] MEDS: busPIRone HCL 5 MG TABLET 15 MG PO ×3 (08:28→17:08)
[2024-04-01] MEDS: HYDROCORTISONE 2.5% CREAM 30 GM TUBE 1 APPLIC TOPICAL ×2 (08:28→21:29)
[2024-04-01] MEDS: ATORVASTATIN 40 MG TABLET 80 MG PO (08:28)
[2024-04-01] MEDS: MEGESTROL ACETATE (*CHEMO) 40 MG TABLET PO ×4 (08:28→21:29)
[2024-04-01] MEDS: CLOPIDOGREL BISULFATE 75 MG TABLET PO (08:29)
[2024-04-01] MEDS: ASCORBIC ACID 500 MG TABLET PO ×2 (08:29→17:08)
[2024-04-01] MEDS: FOLIC ACID 1 MG TABLET PO (08:29)
[2024-04-01] MEDS: buPROPion HCL XL (24 HR) 150 MG TABCR PO (08:29)
[2024-04-01] MEDS: CYANOCOBALAMIN 500 MCG TABLET PO (08:29)
[2024-04-01] MEDS: ASPIRIN 81 MG ENTERIC TABLET PO (08:29)
--- NOTE | 2024-04-01 09:40 | P.PNIM_ITS ---
Progress Note: A&P Assessment and Plan (1) Rash: Code(s): R21 - Rash and other nonspecific skin eruption Status: Acute Assessment and Plan: * systemic rash upper and lower extremities chest and back * treat with prednisone added Benadryl for itching 03/16 * Rash all over body, BUE, BLE and inbetween fingers and toes * Could be a form of eczema, however can not rule out scabies. Left message for daughter to call back. * Continue prednisone * Will order permethrin 5% topical cream x1 now. * Start Atarax for itching * Will isolate for possible scabies 03/17 * Rash showing some improvement with permethrin 5% cream * Continue atarax for itching 03/18 * rash improving but still with mild itch * Stopped prednisone * can continue with cream * Bed bugs vs scabies vs systemic dermatitis 03/20 * No change to current treatment plan 03/23/2024 * Ivermectin given yesterday * Permethrin will be administered today * prn medication * skin looks a lot better 03/24 * Finished course of ivermectin and permethrin cream * rash much improved * Atarax for itching 03/25 * No change to current treatment plan 03/27: * Still with mild itch 03/28 * This may be a fungal infection will d/c triamcinolone * Start Miconazole cream 03/30/24: * ordered mittens to protect skin integrity * hydroxyzine scheduled * hydrocortisone cream (2) Pneumonia: Qualifiers: Laterality: left Lung location: lower lobe of lung Pneumonia type: due to unspecified organism Qualified Code(s): J18.9 - Pneumonia, unspecified organism Code(s): J18.9 - Pneumonia, unspecified organism Status: Resolved Assessment and Plan: CXR left basilar infiltrates suspicious for pneumonia, normal WBC, afebrile, on room air but does have generalized weakness that has worsened over the last week * given Rocephin and azithromycin in the emergency department * transitioned to oral Augmentin * oxygen p.r.n. * incentive spirometer 03/16 * Continue Augmentin and Azithromycin * Continue IS while awake 03/17 * Continue current treatment plan 03/18 * No change RESOLVED 03/23 Repeat chest xray awaiting result WBC have increased to 23 unknown cause no s/s of infection 03/27: * WBC had trended down likely secondary to medication (3) Generalized weakness: Code(s): R53.1 - Weakness Status: Acute Assessment and Plan: * likely secondary to pneumonia and failure to thrive * PT/OT for evaluation * family requesting SNF 03/16 * Continue PT and OT * Case management following for outpatient rehab needs 03/17 * Continue PT and OT * Will require placement 03/20 * No change * Case coordination working on placement 03/21 * Department of family services contacted as we are still unsuccessful in getting in touch with the daughter. Patient is unable to make decisions for herself. Case management following. * continue PT and OT 03/24 * continue PT and OT 03/25 * No change to current treatment plan 03/26 * Nursing reporting decline in ADLs yesterday and today. She is now requiring a jo ann steady to get her up out of the bed and her balance is worse today * PT and OT orders placed for re-evaluation. 03/27: * PT/OT pending (4) Moderate protein-calorie malnutrition: Code(s): E44.0 - Moderate protein-calorie malnutrition Status: Chronic Assessment and Plan: * secondary to failure to thrive * added protein shakes to each meal * regular diet * Resumed Megace 03/16 * encourage po intake * No change to current treatment plan 03/17 * No change (5) Adult failure to thrive: Code(s): R62.7 - Adult failure to thrive Status: Acute Assessment and Plan: patient has been worsening for the last year patient's passed around a year ago suffering from depression, bipolar disorder and anxiety * local intermodal truck driver placement * see above 3 03/16 * Continue PT and OT * Case management working on placement 03/17 * No change 03/25 * Case coordination following. Unsafe discharge. Calls placed to family and department of family services. (6) Depression: Code(s): F32.9 - Major depressive disorder, single episode, unspecified Status: Chronic Assessment and Plan: * Resumed home medications BuSpar and Wellbutrin, citalopram 03/16 * No change (7) Anxiety: Code(s): F41.9 - Anxiety disorder, unspecified Status: Chronic Assessment and Plan: * Resumed home medications BuSpar and Wellbutrin 03/16 * No change (8) Bipolar disorder: Code(s): F31.9 - Bipolar disorder, unspecified Status: Chronic Assessment and Plan: * Resumed home medications divalproex 03/16 * No change (9) Hypothyroidism: Code(s): E03.9 - Hypothyroidism, unspecified Status: Chronic Assessment and Plan: * Resumed Levothyroxine 03/16 * Will check TSH level * Continue Synthroid 03/17 * TSH 0.89 (10) Hypotension: Code(s): I95.9 - Hypotension, unspecified Status: Acute Assessment and Plan: * resume patient's midodrine * monitor BP per unit protocol 03/16 * No change Plan Code status: Full code per patient DVT prophylaxis: Lovenox Stress ulcer prophylaxis: VIRGEN PT/OT notes: PT/OT re-evaluation Disposition: Patient was admitted to the medical unit further evaluation and treatment of pneumonia and generalized weakness. Patient is medically cleared for discharge however we do no t have a safe discharge at this time. Adult protective services was notified and investigating. Currently unable to go to a SNF due to financial issues. Subjective Date/time seen: 04/01/24 09:40 Interval history: Patient is a 68-year-old female who was admitted to the medical unit for further evaluation and treatment generalized weakness, pneumonia, and failure to thrive 03/30/2024: Assumed Care Patient with no complaints Hydrocortisone cream helping with itch No complaints. Seen by PT but difficulty following commands. continues admission awaiting on adult protective Services and financial services for safe discha rge. Review of Systems Review of Systems: All systems reviewed & are unremarkable except as noted in HPI and below Exam Narrative: General: failure to thrive, very malnourished Cardiac: Normal S1 and S2. No murmur, gallops or friction rubs, peripheral pulses intact. Respiratory: Lungs clear to auscultation, no adventitious lung sounds, currently on room air Gastrointestinal: soft, non-distended, non-tender, normoactive bowel sounds. : voiding without difficulty. Extremities: moves all extremities well, no edema Skin: rash much improved. Neuro: Alert Objective Data Vital Signs Vital Signs: Vital Signs - 24 hr 03/31/24 16:00 03/31/24 20:00 03/31/24 23:56 Temperature 96.7 F L 98.0 F Pulse Rate 97 97 95 Respiratory Rate 16 16 16 Blood Pressure 86/74 L 130/56 L Pulse Oximetry 100 100 95 Oxygen Delivery Room Air Room Air Room Air 04/01/24 08:00 Temperature 96.9 F L Pulse Rate 83 Respiratory Rate 18 Blood Pressure 113/61 Pulse Oximetry 96 Oxygen Delivery Room Air Intake/Output Intake/Output: Intake & Output 03/29/24 03/30/24 03/31/24 04/01/24 23:59 23:59 23:59 23:59 Intake Total 1410 2100 1650 940 Balance 1410 2100 1650 940 Meds/Results Medications: Active Medications Generic Name Dose Route Start Last Admin Trade Name Freq PRN Reason Stop Dose Admin Acetaminophen 650 mg 03/14/24 20:34 03/31/24 20:43 Acetaminophen 325 Mg Tablet PO 650 mg Q4H PRN Administration Mild Pain (1-3) or Fever Al Hydrox/Mg Hydrox/Simethicone 30 ml 03/14/24 20:34 Mag Hydrox/Al Hydrox/Simeth 30 Ml Udc PO QID PRN Dyspepsia Ascorbic Acid 500 mg 03/15/24 09:00 04/01/24 08:29 Ascorbic Acid 500 Mg Tablet PO 500 mg BID [facility] Administration Aspirin 81 mg 03/15/24 09:00 04/01/24 08:29 Aspirin 81 Mg Enteric Tablet PO 81 mg QAM [facility] Administration Atorvastatin Calcium 80 mg 03/15/24 09:00 04/01/24 08:28 Atorvastatin 40 Mg Tablet PO 80 mg DAILY [facility] Administration Bupropion HCl 150 mg 03/15/24 09:00 04/01/24 08:29 Bupropion Hcl Xl (24 Hr) 150 Mg Tabcr PO 150 mg DAILY [facility] Administration Buspirone HCl 15 mg 03/15/24 09:00 04/01/24 08:28 Buspirone Hcl 5 Mg Tablet PO 15 mg TID [facility] Administration Clopidogrel Bisulfate 75 mg 03/15/24 09:00 04/01/24 08:29 Clopidogrel Bisulfate 75 Mg Tablet PO 75 mg DAILY [facility] Administration Cyanocobalamin 500 mcg 03/15/24 09:00 04/01/24 08:29 Cyanocobalamin 500 Mcg Tablet PO 500 mcg QAM [facility] Administration Diphenhydramine HCl 25 mg 03/15/24 10:06 03/31/24 20:43 Diphenhydramine Hcl Cap 25 Mg Capsule PO 25 mg Q6H PRN Administration Itching Divalproex Sodium 500 mg 03/14/24 22:15 03/31/24 22:[address] 250 Mg Tabec PO 500 mg Q12H [facility] Administration Enoxaparin Sodium 40 mg 03/16/24 09:00 04/01/24 08:28 Enoxaparin 40 Mg/0.4 Ml Syringe SUB-Q 40 mg DAILY [facility] Administration Escitalopram Oxalate 10 mg 03/14/24 21:00 03/31/24 20:43 Escitalopram Oxalate 10 Mg Tablet PO 10 mg HS [facility] Administration Folic Acid 1 mg 03/15/24 09:00 04/01/24 08:29 Folic Acid 1 Mg Tablet PO 1 mg DAILY [facility] Administration Gabapentin 100 mg 03/14/24 22:00 04/01/24 05:34 Gabapentin 100 Mg Capsule BY MOUTH 100 mg Q8HR [facility] Administration Hydrocortisone 1 applic 03/30/24 09:30 04/01/24 08:28 Hydrocortisone 2.5% Cream 30 Gm Tube TOPICAL 1 applic Q12HR [facility] Administration Hydroxyzine HCl 25 mg 03/29/24 18:00 04/01/24 05:34 Hydroxyzine Hcl 25 Mg Tablet PO 25 mg Q6HR [facility] Administration Levothyroxine Sodium 75 mcg 03/15/24 09:00 04/01/24 05:34 Levothyroxine Sodium 75 Mcg Tablet PO 75 mcg DAILY@0630 [facility] Administration Megestrol Acetate 40 mg 03/16/24 13:00 04/01/24 08:28 Megestrol Acetate (*Chemo) 40 Mg Tablet PO 40 mg QID [facility] Administration Miscellaneous Information 0 each 03/30/24 00:01 03/30/24 22:18 Hydrocortisone - What Is The Application Site? XX 04/29/24 00:00 1 each CLARIFY [facility] Administration Trazodone HCl 100 mg 03/14/24 22:25 03/31/24 20:43 Trazodone Hcl 50 Mg Tablet PO 100 mg HS PRN Administration Insomnia Radiology Results: ITS Impressions Chest X-Ray 03/23/24 08:35 IMPRESSION: 1. No acute cardiopulmonary disease. Quality VTE Prophylaxis VTE prophylaxis: pharmacologic ordered -Patient's previous records reviewed on admission -ER notes reviewed in detail on admission -discussed all findings and current treatment plan with patient/Family/POA -Consultations reviewed for recommendations -Patient's disposition for safe discharge discussed with foster care case manager Dictation performed by [employer] direct speech recognition software, therefore survey field technician variants and typographical errors may occur. Hospitalist MIPS Advance Care Plan I have confirmed that the patient's Advanced Care Plan is present, code status is documented, or surrogate decision maker is listed in patient medical record.: Yes Medication Reconciliation I have utilized all available resources to obtain, update and review the patients current medications (includes all prescriptions, OTC, herbals, cannabis, and nutritional supplements).: Yes The patient is not eligible for med reconciliation; the patient is in a emergent medical situation where delaying treatment would jeopardize the patients health.: No
--- NOTE | 2024-04-01 09:40 | PM.IMPN ---
Progress Note: A&P Assessment and Plan (1) Rash: Code(s): R21 - Rash and other nonspecific skin eruption Status: Acute Assessment and Plan: systemic rash upper and lower extremities chest and back treat with prednisone added Benadryl for itching 03/16 Rash all over body, BUE, BLE and inbetween fingers and toes Could be a form of eczema, however can not rule out scabies. Left message for daughter to call back. Continue prednisone Will order permethrin 5% topical cream x1 now. Start Atarax for itching Will isolate for possible scabies 03/17 Rash showing some improvement with permethrin 5% cream Continue atarax for itching 03/18 rash improving but still with mild itch Stopped prednisone can continue with cream Bed bugs vs scabies vs systemic dermatitis 03/20 No change to current treatment plan 03/23/2024 Ivermectin given yesterday Permethrin will be administered today prn medication skin looks a lot better 03/24 Finished course of ivermectin and permethrin cream rash much improved Atarax for itching 03/25 No change to current treatment plan 03/27: Still with mild itch 03/28 This may be a fungal infection will d/c triamcinolone Start Miconazole cream 03/30/24: ordered mittens to protect skin integrity hydroxyzine scheduled hydrocortisone cream (2) Pneumonia: Qualifiers: Laterality: left Lung location: lower lobe of lung Pneumonia type: due to unspecified organism Qualified Code(s): J18.9 - Pneumonia, unspecified organism Code(s): J18.9 - Pneumonia, unspecified organism Status: Resolved Assessment and Plan: CXR left basilar infiltrates suspicious for pneumonia, normal WBC, afebrile, on room air but does have generalized weakness that has worsened over the last week given Rocephin and azithromycin in the emergency department transitioned to oral Augmentin oxygen p.r.n. incentive spirometer 03/16 Continue Augmentin and Azithromycin Continue IS while awake 03/17 Continue current treatment plan 03/18 No change RESOLVED 03/23 Repeat chest xray awaiting result WBC have increased to 23 unknown cause no s/s of infection 03/27: WBC had trended down likely secondary to medication (3) Generalized weakness: Code(s): R53.1 - Weakness Status: Acute Assessment and Plan: likely secondary to pneumonia and failure to thrive PT/OT for evaluation family requesting SNF 03/16 Continue PT and OT Case management following for outpatient rehab needs 03/17 Continue PT and OT Will require placement 03/20 No change Case coordination working on placement 03/21 Department of family services contacted as we are still unsuccessful in getting in touch with the daughter. Patient is unable to make decisions for herself. Case management following. continue PT and OT 03/24 continue PT and OT 03/25 No change to current treatment plan 03/26 Nursing reporting decline in ADLs yesterday and today. She is now requiring a jo ann steady to get her up out of the bed and her balance is worse today PT and OT orders placed for re-evaluation. 03/27: PT/OT pending (4) Moderate protein-calorie malnutrition: Code(s): E44.0 - Moderate protein-calorie malnutrition Status: Chronic Assessment and Plan: secondary to failure to thrive added protein shakes to each meal regular diet Resumed Megace 03/16 encourage po intake No change to current treatment plan 03/17 No change (5) Adult failure to thrive: Code(s): R62.7 - Adult failure to thrive Status: Acute Assessment and Plan: patient has been worsening for the last year patient's passed around a year ago suffering from depression, bipolar disorder and anxiety custodial placement see above 3 03/16 Continue PT and OT Case management working on placement 03/17 No change 03/25 Case coordination following. Unsafe discharge. Calls placed to family and department of family services. (6) Depression: Code(s): F32.9 - Major depressive disorder, single episode, unspecified Status: Chronic Assessment and Plan: Resumed home medications BuSpar and Wellbutrin, citalopram 03/16 No change (7) Anxiety: Code(s): F41.9 - Anxiety disorder, unspecified Status: Chronic Assessment and Plan: Resumed home medications BuSpar and Wellbutrin 03/16 No change (8) Bipolar disorder: Code(s): F31.9 - Bipolar disorder, unspecified Status: Chronic Assessment and Plan: Resumed home medications divalproex 03/16 No change (9) Hypothyroidism: Code(s): E03.9 - Hypothyroidism, unspecified Status: Chronic Assessment and Plan: Resumed Levothyroxine 03/16 Will check TSH level Continue Synthroid 03/17 TSH 0.89 (10) Hypotension: Code(s): I95.9 - Hypotension, unspecified Status: Acute Assessment and Plan: resume patient's midodrine monitor BP per unit protocol 03/16 No change Plan Code status: Full code per patient DVT prophylaxis: Lovenox Stress ulcer prophylaxis: NA PT/OT notes: PT/OT re-evaluation Disposition: Patient was admitted to the medical unit further evaluation and treatment of pneumonia and generalized weakness. Patient is medically cleared for discharge however we do no t have a safe discharge at this time. Adult protective services was notified and investigating. Currently unable to go to a SNF due to financial issues. Subjective Date/time seen: 04/01/24 09:40 Interval history: Patient is a 68-year-old female who was admitted to the medical unit for further evaluation and treatment generalized weakness, pneumonia, and failure to thrive 03/30/2024: Assumed Care Patient with no complaints Hydrocortisone cream helping with itch No complaints. Seen by PT but difficulty following commands. continues admission awaiting on adult protective Services and financial services for safe discharge. Review of Systems Review of Systems: All systems reviewed & are unremarkable except as noted in HPI and below Exam Narrative: General: failure to thrive, very malnourished Cardiac: Normal S1 and S2. No murmur, gallops or friction rubs, peripheral pulses intact. Respiratory: Lungs clear to auscultation, no adventitious lung sounds, currently on room air Gastrointestinal: soft, non-distended, non-tender, normoactive bowel sounds. : voiding without difficulty. Extremities: moves all extremities well, no edema Skin: rash much improved. Neuro: Alert Objective Data Vital Signs Vital Signs: Vital Signs - 24 hr 03/31/24 16:00 03/31/24 20:00 03/31/24 23:56 Temperature 96.7 F L 98.0 F Pulse Rate 97 97 95 Respiratory Rate 16 16 16 Blood Pressure 86/74 L 130/56 L Pulse Oximetry 100 100 95 Oxygen Delivery Room Air Room Air Room Air 04/01/24 08:00 Temperature 96.9 F L Pulse Rate 83 Respiratory Rate 18 Blood Pressure 113/61 Pulse Oximetry 96 Oxygen Delivery Room Air Intake/Output Intake/Output: Intake & Output 03/29/24 03/30/24 03/31/24 04/01/24 23:59 23:59 23:59 23:59 Intake Total 1410 2100 1650 940 Balance 1410 2100 1650 940 Meds/Results Medications: Active Medications Generic Name Dose Route Start Last Admin Trade Name Freq PRN Reason Stop Dose Admin Acetaminophen 650 mg 03/14/24 20:34 03/31/24 20:43 Acetaminophen 325 Mg Tablet PO 650 mg Q4H PRN Administration Mild Pain (1-3) or Fever Al Hydrox/Mg Hydrox/Simethicone 30 ml 03/14/24 20:34 Mag Hydrox/Al Hydrox/Simeth 30 Ml Udc PO QID PRN Dyspepsia Ascorbic Acid 500 mg 03/15/24 09:00 04/01/24 08:29 Ascorbic Acid 500 Mg Tablet PO 500 mg BID [facility] Administration Aspirin 81 mg 03/15/24 09:00 04/01/24 08:29 Aspirin 81 Mg Enteric Tablet PO 81 mg QAM [facility] Administration Atorvastatin Calcium 80 mg 03/15/24 09:00 04/01/24 08:28 Atorvastatin 40 Mg Tablet PO 80 mg DAILY [facility] Administration Bupropion HCl 150 mg 03/15/24 09:00 04/01/24 08:29 Bupropion Hcl Xl (24 Hr) 150 Mg Tabcr PO 150 mg DAILY [facility] Administration Buspirone HCl 15 mg 03/15/24 09:00 04/01/24 08:28 Buspirone Hcl 5 Mg Tablet PO 15 mg TID [facility] Administration Clopidogrel Bisulfate 75 mg 03/15/24 09:00 04/01/24 08:29 Clopidogrel Bisulfate 75 Mg Tablet PO 75 mg DAILY [facility] Administration Cyanocobalamin 500 mcg 03/15/24 09:00 04/01/24 08:29 Cyanocobalamin 500 Mcg Tablet PO 500 mcg QAM [facility] Administration Diphenhydramine HCl 25 mg 03/15/24 10:06 03/31/24 20:43 Diphenhydramine Hcl Cap 25 Mg Capsule PO 25 mg Q6H PRN Administration Itching Divalproex Sodium 500 mg 03/14/24 22:15 03/31/24 22:[address] 250 Mg Tabec PO 500 mg Q12H [facility] Administration Enoxaparin Sodium 40 mg 03/16/24 09:00 04/01/24 08:28 Enoxaparin 40 Mg/0.4 Ml Syringe SUB-Q 40 mg DAILY [facility] Administration Escitalopram Oxalate 10 mg 03/14/24 21:00 03/31/24 20:43 Escitalopram Oxalate 10 Mg Tablet PO 10 mg HS [facility] Administration Folic Acid 1 mg 03/15/24 09:00 04/01/24 08:29 Folic Acid 1 Mg Tablet PO 1 mg DAILY [facility] Administration Gabapentin 100 mg 03/14/24 22:00 04/01/24 05:34 Gabapentin 100 Mg Capsule BY MOUTH 100 mg Q8HR [facility] Administration Hydrocortisone 1 applic 03/30/24 09:30 04/01/24 08:28 Hydrocortisone 2.5% Cream 30 Gm Tube TOPICAL 1 applic Q12HR [facility] Administration Hydroxyzine HCl 25 mg 03/29/24 18:00 04/01/24 05:34 Hydroxyzine Hcl 25 Mg Tablet PO 25 mg Q6HR [facility] Administration Levothyroxine Sodium 75 mcg 03/15/24 09:00 04/01/24 05:34 Levothyroxine Sodium 75 Mcg Tablet PO 75 mcg DAILY@0630 [facility] Administration Megestrol Acetate 40 mg 03/16/24 13:00 04/01/24 08:28 Megestrol Acetate (*Chemo) 40 Mg Tablet PO 40 mg QID [facility] Administration Miscellaneous Information 0 each 03/30/24 00:01 03/30/24 22:18 Hydrocortisone - What Is The Application Site? XX 04/29/24 00:00 1 each [facility] Administration Trazodone HCl 100 mg 03/14/24 22:25 03/31/24 20:43 Trazodone Hcl 50 Mg Tablet PO 100 mg HS PRN Administration Insomnia Radiology Results: ITS Impressions Chest X-Ray 03/23/24 08:35 IMPRESSION: 1. No acute cardiopulmonary disease. Quality VTE Prophylaxis VTE prophylaxis: pharmacologic ordered -Patient's previous records reviewed on admission -ER notes reviewed in detail on admission -discussed all findings and current treatment plan with patient/Family/POA -Consultations reviewed for recommendations -Patient's disposition for safe discharge discussed with case folder Dictation performed by [employer] direct speech recognition software, therefore computer systems information director variants and typographical errors may occur. Hospitalist MIPS Advance Care Plan I have confirmed that the patient's Advanced Care Plan is present, code status is documented, or surrogate decision maker is listed in patient medical record.: Yes Medication Reconciliation I have utilized all available resources to obtain, update and review the patients current medications (includes all prescriptions, OTC, herbals, cannabis, and nutritional supplements).: Yes The patient is not eligible for med reconciliation; the patient is in a emergent medical situation where delaying treatment would jeopardize the patients health.: No
[2024-04-01] MEDS: DIVALPROEX SODIUM DR 250 MG TABEC 500 MG PO ×2 (10:05→21:29)
[2024-04-01 16:00] VITALS: BP 96/63; PULSE 9; RESP 14; TEMP 36; O2SAT 93
--- NOTE | 2024-04-01 17:25 | PC.NURSE ---
Patient up in chair. Hand restraints removed so paitne can eat supper. Chair alarm on. Patient incont of B&B. Pericare given. Encouraged to increase intake.
[2024-04-01] MEDS: ESCITALOPRAM OXALATE 10 MG TABLET PO (21:29)
[2024-04-01] MEDS: traZODone HCL 50 MG TABLET 100 MG PO (21:29)
--- NOTE | 2024-04-01 22:46 | PC.NURSE ---
Patient resting in bed with bed alarm on. Patient had x3 soft stools on this shift. Call light and belongings within reach. Bed alarm on.
[2024-04-02] VITALS: BP 110/55; PULSE 78; RESP 18; TEMP 36.6; O2SAT 95
[2024-04-02] MEDS: hydrOXYzine HCL 25 MG TABLET PO ×5 (00:07→23:51)
[2024-04-02] MEDS: GABAPENTIN 100 MG CAPSULE BY MOUTH ×3 (05:38→21:28)
[2024-04-02] MEDS: LEVOTHYROXINE SODIUM 75 MCG TABLET PO (05:38)
[2024-04-02 08:00] VITALS: BP 134/64; PULSE 83; RESP 18; TEMP 35.9; O2SAT 95
[2024-04-02] MEDS: ASCORBIC ACID 500 MG TABLET PO ×2 (08:22→17:01)
[2024-04-02] MEDS: ASPIRIN 81 MG ENTERIC TABLET PO (08:22)
[2024-04-02] MEDS: ATORVASTATIN 40 MG TABLET 80 MG PO (08:22)
[2024-04-02] MEDS: busPIRone HCL 5 MG TABLET 15 MG PO ×3 (08:23→17:01)
[2024-04-02] MEDS: buPROPion HCL XL (24 HR) 150 MG TABCR PO (08:23)
[2024-04-02] MEDS: ENOXAPARIN 40 MG/0.4 ML SYRINGE SUB-Q (08:23)
[2024-04-02] MEDS: CLOPIDOGREL BISULFATE 75 MG TABLET PO (08:23)
[2024-04-02] MEDS: CYANOCOBALAMIN 500 MCG TABLET PO (08:23)
[2024-04-02] MEDS: HYDROCORTISONE 2.5% CREAM 30 GM TUBE 1 APPLIC TOPICAL ×2 (08:24→21:28)
[2024-04-02] MEDS: FOLIC ACID 1 MG TABLET PO (08:24)
[2024-04-02] MEDS: MEGESTROL ACETATE (*CHEMO) 40 MG TABLET PO ×4 (08:24→21:29)
--- NOTE | 2024-04-02 08:24 | P.PNIM_ITS ---
Progress Note: A&P Assessment and Plan (1) Rash: Code(s): R21 - Rash and other nonspecific skin eruption Status: Acute Assessment and Plan: * systemic rash upper and lower extremities chest and back * treat with prednisone added Benadryl for itching 03/16 * Rash all over body, BUE, BLE and inbetween fingers and toes * Could be a form of eczema, however can not rule out scabies. Left message for daughter to call back. * Continue prednisone * Will order permethrin 5% topical cream x1 now. * Start Atarax for itching * Will isolate for possible scabies 03/17 * Rash showing some improvement with permethrin 5% cream * Continue atarax for itching 03/18 * rash improving but still with mild itch * Stopped prednisone * can continue with cream * Bed bugs vs scabies vs systemic dermatitis 03/20 * No change to current treatment plan 03/23/2024 * Ivermectin given yesterday * Permethrin will be administered today * prn medication * skin looks a lot better 03/24 * Finished course of ivermectin and permethrin cream * rash much improved * Atarax for itching 03/25 * No change to current treatment plan 03/27: * Still with mild itch 03/28 * This may be a fungal infection will d/c triamcinolone * Start Miconazole cream 03/30/24: * ordered mittens to protect skin integrity * hydroxyzine scheduled * hydrocortisone cream (2) Generalized weakness: Code(s): R53.1 - Weakness Status: Acute Assessment and Plan: * likely secondary to pneumonia and failure to thrive * PT/OT for evaluation * family requesting SNF 03/16 * Continue PT and OT * Case management following for outpatient rehab needs 03/17 * Continue PT and OT * Will require placement 03/20 * No change * Case coordination working on placement 03/21 * Department of family services contacted as we are still unsuccessful in getting in touch with the daughter. Patient is unable to make decisions for herself. Case management following. * continue PT and OT 03/24 * continue PT and OT 03/25 * No change to current treatment plan 03/26 * Nursing reporting decline in ADLs yesterday and today. She is now requiring a jo ann steady to get her up out of the bed and her balance is worse today * PT and OT orders placed for re-evaluation. 03/27: * PT/OT pending (3) Moderate protein-calorie malnutrition: Code(s): E44.0 - Moderate protein-calorie malnutrition Status: Chronic Assessment and Plan: * secondary to failure to thrive * added protein shakes to each meal * regular diet * Resumed Megace 03/16 * encourage po intake * No change to current treatment plan 03/17 * No change (4) Adult failure to thrive: Code(s): R62.7 - Adult failure to thrive Status: Acute Assessment and Plan: patient has been worsening for the last year patient's passed around a year ago suffering from depression, bipolar disorder and anxiety * [facility] placement * see above 3 03/16 * Continue PT and OT * Case management working on placement 03/17 * No change 03/25 * Case coordination following. Unsafe discharge. Calls placed to family and department of family services. (5) Depression: Code(s): F32.9 - Major depressive disorder, single episode, unspecified Status: Chronic Assessment and Plan: * Resumed home medications BuSpar and Wellbutrin, citalopram 03/16 * No change (6) Anxiety: Code(s): F41.9 - Anxiety disorder, unspecified Status: Chronic Assessment and Plan: * Resumed home medications BuSpar and Wellbutrin 03/16 * No change (7) Bipolar disorder: Code(s): F31.9 - Bipolar disorder, unspecified Status: Chronic Assessment and Plan: * Resumed home medications divalproex 03/16 * No change (8) Pneumonia: Qualifiers: Laterality: left Lung location: lower lobe of lung Pneumonia type: due to unspecified organism Qualified Code(s): J18.9 - Pneumonia, unspecified organism Code(s): J18.9 - Pneumonia, unspecified organism Status: Resolved Assessment and Plan: CXR left basilar infiltrates suspicious for pneumonia, normal WBC, afebrile, on room air but does have generalized weakness that has worsened over the last week * given Rocephin and azithromycin in the emergency department * transitioned to oral Augmentin * oxygen p.r.n. * incentive spirometer 03/16 * Continue Augmentin and Azithromycin * Continue IS while awake 03/17 * Continue current treatment plan 03/18 * No change RESOLVED 03/23 Repeat chest xray awaiting result WBC have increased to 23 unknown cause no s/s of infection 03/27: * WBC had trended down likely secondary to medication RESOLVED (9) Hypothyroidism: Code(s): E03.9 - Hypothyroidism, unspecified Status: Chronic Assessment and Plan: * Resumed Levothyroxine 03/16 * Will check TSH level * Continue Synthroid 03/17 * TSH 0.89 (10) Hypotension: Code(s): I95.9 - Hypotension, unspecified Status: Acute Assessment and Plan: * resume patient's midodrine * monitor BP per unit protocol 03/16 * No change Plan Code status: Full code per patient DVT prophylaxis: Lovenox Stress ulcer prophylaxis: VIRGEN PT/OT notes: PT/OT re-evaluation Disposition: Patient was admitted to the medical unit further evaluation and treatment of pneumonia and generalized weakness. Patient is medically cleared for discharge however we do no t have a safe discharge at this time. Adult protective services was notified and investigating. Currently unable to go to a SNF due to financial issues. Time Spent With Patient Time with patient: 15 - 25 minutes Subjective Date/time seen: 04/02/24 08:24 Interval history: Patient is a 68-year-old female who was admitted to the medical unit for further evaluation and treatment generalized weakness, pneumonia, and failure to thrive 04/02/2024: Patient in no distress up in chair, No change follow-up labs tomorrow. Hydrocortisone cream helping with itch No complaints. Seen by PT but difficulty following commands. continues admission awaiting on adult protective Services and financial services for safe discharge. Will continue to get labs Intermittently or when warranted. Review of Systems Review of Systems: All systems reviewed & are unremarkable except as noted in HPI and below Exam Narrative: General: failure to thrive, very malnourished Cardiac: Normal S1 and S2. No murmur, gallops or friction rubs, peripheral pulses intact. Respiratory: Lungs clear to auscultation, no adventitious lung sounds, currently on room air Gastrointestinal: soft, non-distended, non-tender, normoactive bowel sounds. : voiding without difficulty. Extremities: moves all extremities well, no edema Skin: rash much improved. Neuro: Alert Objective Data Vital Signs Vital Signs: Vital Signs - 24 hr 04/01/24 16:00 04/02/24 00:00 Temperature 96.8 F L 97.8 F Pulse Rate 9 L 78 Respiratory Rate 14 18 Blood Pressure 96/63 L 110/55 L Pulse Oximetry 93 95 Oxygen Delivery Room Air Room Air Intake/Output Intake/Output: Intake & Output 03/30/24 03/31/24 04/01/24 04/02/24 23:59 23:59 23:59 23:59 Intake Total 2099 1650 1917 300 Balance 2100 1650 1917 300 Meds/Results Medications: Active Medications Generic Name Dose Route Start Last Admin Trade Name Freq PRN Reason Stop Dose Admin Acetaminophen 650 mg 03/14/24 20:34 03/31/24 20:43 Acetaminophen 325 Mg Tablet PO 650 mg Q4H PRN Administration Mild Pain (1-3) or Fever Al Hydrox/Mg Hydrox/Simethicone 30 ml 03/14/24 20:34 Mag Hydrox/Al Hydrox/Simeth 30 Ml Udc PO QID PRN Dyspepsia Ascorbic Acid 500 mg 03/15/24 09:00 04/01/24 17:08 Ascorbic Acid 500 Mg Tablet PO 500 mg BID MINH Administration Aspirin 81 mg 03/15/24 09:00 04/01/24 08:29 Aspirin 81 Mg Enteric Tablet PO 81 mg QAM [facility] Administration Atorvastatin Calcium 80 mg 03/15/24 09:00 04/01/24 08:28 Atorvastatin 40 Mg Tablet PO 80 mg DAILY [facility] Administration Bupropion HCl 150 mg 03/15/24 09:00 04/01/24 08:29 Bupropion Hcl Xl (24 Hr) 150 Mg Tabcr PO 150 mg DAILY [facility] Administration Buspirone HCl 15 mg 03/15/24 09:00 04/01/24 17:08 Buspirone Hcl 5 Mg Tablet PO 15 mg TID [facility] Administration Clopidogrel Bisulfate 75 mg 03/15/24 09:00 04/01/24 08:29 Clopidogrel Bisulfate 75 Mg Tablet PO 75 mg DAILY [facility] Administration Cyanocobalamin 500 mcg 03/15/24 09:00 04/01/24 08:29 Cyanocobalamin 500 Mcg Tablet PO 500 mcg QAM [facility] Administration Diphenhydramine HCl 25 mg 03/15/24 10:06 03/31/24 20:43 Diphenhydramine Hcl Cap 25 Mg Capsule PO 25 mg Q6H PRN Administration Itching Divalproex Sodium 500 mg 03/14/24 22:15 04/01/24 21:[address] 250 Mg Tabec PO 500 mg Q12H [facility] Administration Enoxaparin Sodium 40 mg 03/16/24 09:00 04/01/24 08:28 Enoxaparin 40 Mg/0.4 Ml Syringe SUB-Q 40 mg DAILY [facility] Administration Escitalopram Oxalate 10 mg 03/14/24 21:00 04/01/24 21:29 Escitalopram Oxalate 10 Mg Tablet PO 10 mg HS [facility] Administration Folic Acid 1 mg 03/15/24 09:00 04/01/24 08:29 Folic Acid 1 Mg Tablet PO 1 mg DAILY [facility] Administration Gabapentin 100 mg 03/14/24 22:00 04/02/24 05:38 Gabapentin 100 Mg Capsule BY MOUTH 100 mg Q8HR [facility] Administration Hydrocortisone 1 applic 03/30/24 09:30 04/01/24 21:29 Hydrocortisone 2.5% Cream 30 Gm Tube TOPICAL 1 applic Q12HR [facility] Administration Hydroxyzine HCl 25 mg 03/29/24 18:00 04/02/24 05:38 Hydroxyzine Hcl 25 Mg Tablet PO 25 mg Q6HR [facility] Administration Levothyroxine Sodium 75 mcg 03/15/24 09:00 04/02/24 05:38 Levothyroxine Sodium 75 Mcg Tablet PO 75 mcg DAILY@0630 [facility] Administration Megestrol Acetate 40 mg 03/16/24 13:00 04/01/24 21:29 Megestrol Acetate (*Chemo) 40 Mg Tablet PO 40 mg QID [facility] Administration Trazodone HCl 100 mg 03/14/24 22:25 04/01/24 21:29 Trazodone Hcl 50 Mg Tablet PO 100 mg HS PRN Administration Insomnia Radiology Results: ITS Impressions Chest X-Ray 03/23/24 08:35 IMPRESSION: 1. No acute cardiopulmonary disease. Quality VTE Prophylaxis VTE prophylaxis: pharmacologic ordered -Patient's previous records reviewed on admission -ER notes reviewed in detail on admission -discussed all findings and current treatment plan with patient/Family/POA -Consultations reviewed for recommendations -Patient's disposition for safe discharge discussed with pillowcase turner Dictation performed by [employer] direct speech recognition software, therefore reservoir engineering consultant variants and typographical errors may occur. Hospitalist MIPS Advance Care Plan I have confirmed that the patient's Advanced Care Plan is present, code status is documented, or surrogate decision maker is listed in patient medical record.: Yes Medication Reconciliation I have utilized all available resources to obtain, update and review the patients current medications (includes all prescriptions, OTC, herbals, cannabis, and nutritional supplements).: Yes The patient is not eligible for med reconciliation; the patient is in a emergent medical situation where delaying treatment would jeopardize the patients health.: No
--- NOTE | 2024-04-02 08:24 | PM.IMPN ---
Progress Note: A&P Assessment and Plan (1) Rash: Code(s): R21 - Rash and other nonspecific skin eruption Status: Acute Assessment and Plan: systemic rash upper and lower extremities chest and back treat with prednisone added Benadryl for itching 03/16 Rash all over body, BUE, BLE and inbetween fingers and toes Could be a form of eczema, however can not rule out scabies. Left message for daughter to call back. Continue prednisone Will order permethrin 5% topical cream x1 now. Start Atarax for itching Will isolate for possible scabies 03/17 Rash showing some improvement with permethrin 5% cream Continue atarax for itching 03/18 rash improving but still with mild itch Stopped prednisone can continue with cream Bed bugs vs scabies vs systemic dermatitis 03/20 No change to current treatment plan 03/23/2024 Ivermectin given yesterday Permethrin will be administered today prn medication skin looks a lot better 03/24 Finished course of ivermectin and permethrin cream rash much improved Atarax for itching 03/25 No change to current treatment plan 03/27: Still with mild itch 03/28 This may be a fungal infection will d/c triamcinolone Start Miconazole cream 03/30/24: ordered mittens to protect skin integrity hydroxyzine scheduled hydrocortisone cream (2) Generalized weakness: Code(s): R53.1 - Weakness Status: Acute Assessment and Plan: likely secondary to pneumonia and failure to thrive PT/OT for evaluation family requesting SNF 03/16 Continue PT and OT Case management following for outpatient rehab needs 03/17 Continue PT and OT Will require placement 03/20 No change Case coordination working on placement 03/21 Department of family services contacted as we are still unsuccessful in getting in touch with the daughter. Patient is unable to make decisions for herself. Case management following. continue PT and OT 03/24 continue PT and OT 03/25 No change to current treatment plan 03/26 Nursing reporting decline in ADLs yesterday and today. She is now requiring a jo ann steady to get her up out of the bed and her balance is worse today PT and OT orders placed for re-evaluation. 03/27: PT/OT pending (3) Moderate protein-calorie malnutrition: Code(s): E44.0 - Moderate protein-calorie malnutrition Status: Chronic Assessment and Plan: secondary to failure to thrive added protein shakes to each meal regular diet Resumed Megace 03/16 encourage po intake No change to current treatment plan 03/17 No change (4) Adult failure to thrive: Code(s): R62.7 - Adult failure to thrive Status: Acute Assessment and Plan: patient has been worsening for the last year patient's passed around a year ago suffering from depression, bipolar disorder and anxiety computer terminal operator placement see above 3 03/16 Continue PT and OT Case management working on placement 03/17 No change 03/25 Case coordination following. Unsafe discharge. Calls placed to family and department of family services. (5) Depression: Code(s): F32.9 - Major depressive disorder, single episode, unspecified Status: Chronic Assessment and Plan: Resumed home medications BuSpar and Wellbutrin, citalopram 03/16 No change (6) Anxiety: Code(s): F41.9 - Anxiety disorder, unspecified Status: Chronic Assessment and Plan: Resumed home medications BuSpar and Wellbutrin 03/16 No change (7) Bipolar disorder: Code(s): F31.9 - Bipolar disorder, unspecified Status: Chronic Assessment and Plan: Resumed home medications divalproex 03/16 No change (8) Pneumonia: Qualifiers: Laterality: left Lung location: lower lobe of lung Pneumonia type: due to unspecified organism Qualified Code(s): J18.9 - Pneumonia, unspecified organism Code(s): J18.9 - Pneumonia, unspecified organism Status: Resolved Assessment and Plan: CXR left basilar infiltrates suspicious for pneumonia, normal WBC, afebrile, on room air but does have generalized weakness that has worsened over the last week given Rocephin and azithromycin in the emergency department transitioned to oral Augmentin oxygen p.r.n. incentive spirometer 03/16 Continue Augmentin and Azithromycin Continue IS while awake 03/17 Continue current treatment plan 03/18 No change RESOLVED 03/23 Repeat chest xray awaiting result WBC have increased to 23 unknown cause no s/s of infection 03/27: WBC had trended down likely secondary to medication RESOLVED (9) Hypothyroidism: Code(s): E03.9 - Hypothyroidism, unspecified Status: Chronic Assessment and Plan: Resumed Levothyroxine 03/16 Will check TSH level Continue Synthroid 03/17 TSH 0.89 (10) Hypotension: Code(s): I95.9 - Hypotension, unspecified Status: Acute Assessment and Plan: resume patient's midodrine monitor BP per unit protocol 03/16 No change Plan Code status: Full code per patient DVT prophylaxis: Lovenox Stress ulcer prophylaxis: NA PT/OT notes: PT/OT re-evaluation Disposition: Patient was admitted to the medical unit further evaluation and treatment of pneumonia and generalized weakness. Patient is medically cleared for discharge however we do no t have a safe discharge at this time. Adult protective services was notified and investigating. Currently unable to go to a SNF due to financial issues. Time Spent With Patient Time with patient: 15 - 25 minutes Subjective Date/time seen: 04/02/24 08:24 Interval history: Patient is a 68-year-old female who was admitted to the medical unit for further evaluation and treatment generalized weakness, pneumonia, and failure to thrive 04/02/2024: Patient in no distress up in chair, No change follow-up labs tomorrow. Hydrocortisone cream helping with itch No complaints. Seen by PT but difficulty following commands. continues admission awaiting on adult protective Services and financial services for safe discharge. Will continue to get labs Intermittently or when warranted. Review of Systems Review of Systems: All systems reviewed & are unremarkable except as noted in HPI and below Exam Narrative: General: failure to thrive, very malnourished Cardiac: Normal S1 and S2. No murmur, gallops or friction rubs, peripheral pulses intact. Respiratory: Lungs clear to auscultation, no adventitious lung sounds, currently on room air Gastrointestinal: soft, non-distended, non-tender, normoactive bowel sounds. : voiding without difficulty. Extremities: moves all extremities well, no edema Skin: rash much improved. Neuro: Alert Objective Data Vital Signs Vital Signs: Vital Signs - 24 hr 04/01/24 16:00 04/02/24 00:00 Temperature 96.8 F L 97.8 F Pulse Rate 9 L 78 Respiratory Rate 14 18 Blood Pressure 96/63 L 110/55 L Pulse Oximetry 93 95 Oxygen Delivery Room Air Room Air Intake/Output Intake/Output: Intake & Output 03/30/24 03/31/24 04/01/24 04/02/24 23:59 23:59 23:59 23:59 Intake Total 2100 1650 1917 300 Balance 2100 1649 1916 300 Meds/Results Medications: Active Medications Generic Name Dose Route Start Last Admin Trade Name Freq PRN Reason Stop Dose Admin Acetaminophen 650 mg 03/14/24 20:34 03/31/24 20:43 Acetaminophen 325 Mg Tablet PO 650 mg Q4H PRN Administration Mild Pain (1-3) or Fever Al Hydrox/Mg Hydrox/Simethicone 30 ml 03/14/24 20:34 Mag Hydrox/Al Hydrox/Simeth 30 Ml Udc PO QID PRN Dyspepsia Ascorbic Acid 500 mg 03/15/24 09:00 04/01/24 17:08 Ascorbic Acid 500 Mg Tablet PO 500 mg BID [facility] Administration Aspirin 81 mg 03/15/24 09:00 04/01/24 08:29 Aspirin 81 Mg Enteric Tablet PO 81 mg QAM [facility] Administration Atorvastatin Calcium 80 mg 03/15/24 09:00 04/01/24 08:28 Atorvastatin 40 Mg Tablet PO 80 mg DAILY [facility] Administration Bupropion HCl 150 mg 03/15/24 09:00 04/01/24 08:29 Bupropion Hcl Xl (24 Hr) 150 Mg Tabcr PO 150 mg DAILY [facility] Administration Buspirone HCl 15 mg 03/15/24 09:00 04/01/24 17:08 Buspirone Hcl 5 Mg Tablet PO 15 mg TID [facility] Administration Clopidogrel Bisulfate 75 mg 03/15/24 09:00 04/01/24 08:29 Clopidogrel Bisulfate 75 Mg Tablet PO 75 mg DAILY [facility] Administration Cyanocobalamin 500 mcg 03/15/24 09:00 04/01/24 08:29 Cyanocobalamin 500 Mcg Tablet PO 500 mcg QAM [facility] Administration Diphenhydramine HCl 25 mg 03/15/24 10:06 03/31/24 20:43 Diphenhydramine Hcl Cap 25 Mg Capsule PO 25 mg Q6H PRN Administration Itching Divalproex Sodium 500 mg 03/14/24 22:15 04/01/24 21:[address] 250 Mg Tabec PO 500 mg Q12H [facility] Administration Enoxaparin Sodium 40 mg 03/16/24 09:00 04/01/24 08:28 Enoxaparin 40 Mg/0.4 Ml Syringe SUB-Q 40 mg DAILY [facility] Administration Escitalopram Oxalate 10 mg 03/14/24 21:00 04/01/24 21:29 Escitalopram Oxalate 10 Mg Tablet PO 10 mg HS [facility] Administration Folic Acid 1 mg 03/15/24 09:00 04/01/24 08:29 Folic Acid 1 Mg Tablet PO 1 mg DAILY [facility] Administration Gabapentin 100 mg 03/14/24 22:00 04/02/24 05:38 Gabapentin 100 Mg Capsule BY MOUTH 100 mg Q8HR [facility] Administration Hydrocortisone 1 applic 03/30/24 09:30 04/01/24 21:29 Hydrocortisone 2.5% Cream 30 Gm Tube TOPICAL 1 applic Q12HR [facility] Administration Hydroxyzine HCl 25 mg 03/29/24 18:00 04/02/24 05:38 Hydroxyzine Hcl 25 Mg Tablet PO 25 mg Q6HR [facility] Administration Levothyroxine Sodium 75 mcg 03/15/24 09:00 04/02/24 05:38 Levothyroxine Sodium 75 Mcg Tablet PO 75 mcg DAILY@0630 [facility] Administration Megestrol Acetate 40 mg 03/16/24 13:00 04/01/24 21:29 Megestrol Acetate (*Chemo) 40 Mg Tablet PO 40 mg QID [facility] Administration Trazodone HCl 100 mg 03/14/24 22:25 04/01/24 21:29 Trazodone Hcl 50 Mg Tablet PO 100 mg HS PRN Administration Insomnia Radiology Results: ITS Impressions Chest X-Ray 03/23/24 08:35 IMPRESSION: 1. No acute cardiopulmonary disease. Quality VTE Prophylaxis VTE prophylaxis: pharmacologic ordered -Patient's previous records reviewed on admission -ER notes reviewed in detail on admission -discussed all findings and current treatment plan with patient/Family/POA -Consultations reviewed for recommendations -Patient's disposition for safe discharge discussed with counseling case manager Dictation performed by [employer] direct speech recognition software, therefore educational audiologist variants and typographical errors may occur. Hospitalist MIPS Advance Care Plan I have confirmed that the patient's Advanced Care Plan is present, code status is documented, or surrogate decision maker is listed in patient medical record.: Yes Medication Reconciliation I have utilized all available resources to obtain, update and review the patients current medications (includes all prescriptions, OTC, herbals, cannabis, and nutritional supplements).: Yes The patient is not eligible for med reconciliation; the patient is in a emergent medical situation where delaying treatment would jeopardize the patients health.: No
[2024-04-02] MEDS: DIVALPROEX SODIUM DR 250 MG TABEC 500 MG PO ×2 (09:04→21:28)
--- NOTE | 2024-04-02 14:05 | PC.NURSE ---
Patient contiunues with non-violent mitts. Mitts taken off with meals and hygiene and when transfered with [facility]. Patient was able to take off mitts after lun
--- NOTE | 2024-04-02 14:06 | PC.NURSE ---
Patient continues with mitts non-violent restraints to bilateral hands. Mitts taken off during meals, hygiene, and transferring with ben. Patient was able to take off mitts on her own while napping in bed after breakfast. Patient continues to pick at scabs on arms when mitts are off. Resident now resting in bed, respirations even and unlabored, bilateral mitts in place, incontinent care as needed with call light in place. Alarms engaged.
--- NOTE | 2024-04-02 14:23 | PC.NURSE ---
1233 sent correspondence to WILDLIFE ECOLOGIST r/t needing order to continue non violent restraints for itching and picking on skin and not easily redirected.
[2024-04-02 16:00] VITALS: BP 128/72; PULSE 78; RESP 16; TEMP 35.8; O2SAT 94
--- NOTE | 2024-04-02 17:23 | PC.NURSE ---
Patient in bed before supper. Incont of bladder. Pericare provided. Assisted to chair for supper. Safety mitts removed to enable patient to feed self. Chair alarm on. Several reminders given not to scratch at sores on skin. Patient difficult to redirect.
[2024-04-02] MEDS: traZODone HCL 50 MG TABLET 100 MG PO (21:28)
[2024-04-02] MEDS: diphenhydrAMINE HCl CAP 25 MG CAPSULE PO (21:28)
[2024-04-02] MEDS: ESCITALOPRAM OXALATE 10 MG TABLET PO (21:28)
--- NOTE | 2024-04-02 21:41 | PC.NURSE ---
Patient fed self meal. Nurse changed linens on bed while patient was up. Nurse gave patient a wet wash cloth and towel to clean face, chest, hands, arms. New gown placed on patient. Patient incont of bladder and pericare and dry depends provided. Patient assisted to bed and bed alarm on. Warm blanket applied and fresh water offered to patient. Patient drank some of the water. Safety mitts on to prevent patient from scratching at sores on arms and chest. Patient observed to have picked at left ear. Nurse cleaned ear.
[2024-04-03] VITALS: BP 99/55; PULSE 88; RESP 15; TEMP 36.4; O2SAT 93
[2024-04-03 05:24] LABS: Hematocrit 30.1 % (35.0-42.0); Hemoglobin 9.5 g/dL (11.7-13.8); Immature Platelet Fraction Pct 0.6 % (1.0-7.0); Mean Corpuscular HGB Conc 31.6 g/dL (32-36); Mean Corpuscular Hemoglobin 30.3 pg (27.0-31.0); Mean Corpuscular Volume 95.9 fL (78.0-102.0); Mean Platelet Volume 8.5 fl (9.2-11.8); Platelet Count Result 573 K/mm3 (150-420); Red Blood Count 3.14 M/mm3 (4.20-5.40); Red Cell Distribution Width 15.3 % (11.6-14.4)
[2024-04-03 05:48] LABS: Alanine Aminotransferase 23 U/L (14-59); Albumin Level 2.1 g/dL (3.4-5.0); Alkaline Phosphatase 70 U/L (46-116); Anion Gap 5 mmol/L (4-12); Aspartate Amino Transferase 10 U/L (15-37); Bilirubin,Total 0.2 mg/dL (0.00-1.00); Blood Urea Nitrogen 15 mg/dL (7-18); Calcium 9.1 mg/dL (8.5-10.1); Carbon Dioxide 30 mmol/L (21-32); Chloride 101 mmol/L (98-108); Estimated CRCL calculation 57 ml/min; Estimated Glomerular Filt Rate > 60; Glucose 86 mg/dL (70-99); Osmolality Calculated 281 mOsm/kg (285-295); Potassium 4.7 mmol/L (3.5-5.1); Sodium 136 mmol/L (136-145); Total Protein 6.4 g/dL (6.4-8.2)
[2024-04-03] MEDS: LEVOTHYROXINE SODIUM 75 MCG TABLET PO (06:28)
[2024-04-03] MEDS: hydrOXYzine HCL 25 MG TABLET PO ×3 (06:28→17:38)
[2024-04-03] MEDS: GABAPENTIN 100 MG CAPSULE BY MOUTH ×3 (06:28→21:29)
[2024-04-03 08:00] VITALS: BP 103/60; PULSE 68; TEMP 36; O2SAT 98
--- NOTE | 2024-04-03 08:58 | P.PNIM_ITS ---
Progress Note: A&P Assessment and Plan (1) Rash: Code(s): R21 - Rash and other nonspecific skin eruption Status: Acute Assessment and Plan: * systemic rash upper and lower extremities chest and back * treat with prednisone added Benadryl for itching 03/16 * Rash all over body, BUE, BLE and inbetween fingers and toes * Could be a form of eczema, however can not rule out scabies. Left message for daughter to call back. * Continue prednisone * Will order permethrin 5% topical cream x1 now. * Start Atarax for itching * Will isolate for possible scabies 03/17 * Rash showing some improvement with permethrin 5% cream * Continue atarax for itching 03/18 * rash improving but still with mild itch * Stopped prednisone * can continue with cream * Bed bugs vs scabies vs systemic dermatitis 03/20 * No change to current treatment plan 03/23/2024 * Ivermectin given yesterday * Permethrin will be administered today * prn medication * skin looks a lot better 03/24 * Finished course of ivermectin and permethrin cream * rash much improved * Atarax for itching 03/25 * No change to current treatment plan 03/27: * Still with mild itch 03/28 * This may be a fungal infection will d/c triamcinolone * Start Miconazole cream 03/30/24: * ordered mittens to protect skin integrity * hydroxyzine scheduled * hydrocortisone cream 04/03 * currently in Mitten restraints due to the scratching * rashes much improved nearly gone (2) Generalized weakness: Code(s): R53.1 - Weakness Status: Acute Assessment and Plan: * likely secondary to pneumonia and failure to thrive * PT/OT for evaluation * family requesting SNF 03/16 * Continue PT and OT * Case management following for outpatient rehab needs 03/17 * Continue PT and OT * Will require placement 03/20 * No change * Case coordination working on placement 03/21 * Department of family services contacted as we are still unsuccessful in getting in touch with the daughter. Patient is unable to make decisions for herself. Case management following. * continue PT and OT 03/24 * continue PT and OT 03/25 * No change to current treatment plan 03/26 * Nursing reporting decline in ADLs yesterday and today. She is now requiring a jo ann steady to get her up out of the bed and her balance is worse today * PT and OT orders placed for re-evaluation. 03/27: * PT/OT pending 04/03 * currently at baseline functioning * awaiting group home placement (3) Moderate protein-calorie malnutrition: Code(s): E44.0 - Moderate protein-calorie malnutrition Status: Chronic Assessment and Plan: * secondary to failure to thrive * added protein shakes to each meal * regular diet * Resumed Megace 03/16 * encourage po intake * No change to current treatment plan 03/17 * No change (4) Adult failure to thrive: Code(s): R62.7 - Adult failure to thrive Status: Acute Assessment and Plan: patient has been worsening for the last year patient's passed around a year ago suffering from depression, bipolar disorder and anxiety * care home placement * see above 3 03/16 * Continue PT and OT * Case management working on placement 03/17 * No change 03/25 * Case coordination following. Unsafe discharge. Calls placed to family and department of family services. 04/03 * patient is Medicaid pending and Case coordination is working on group home placement (5) Leukocytosis: Code(s): D72.829 - Elevated white blood cell count, unspecified Status: Acute Assessment and Plan: * white blood cell count trending downward to 12.0 * bump in white blood cell count was likely due to the use of permethrin for her rash * she is afebrile with no signs or symptoms of infection or infectious process * continue to trend (6) Depression: Code(s): F32.9 - Major depressive disorder, single episode, unspecified Status: Chronic Assessment and Plan: * Resumed home medications BuSpar and Wellbutrin, citalopram 03/16 * No change (7) Anxiety: Code(s): F41.9 - Anxiety disorder, unspecified Status: Chronic Assessment and Plan: * Resumed home medications BuSpar and Wellbutrin 03/16 * No change (8) Bipolar disorder: Code(s): F31.9 - Bipolar disorder, unspecified Status: Chronic Assessment and Plan: * Resumed home medications divalproex 03/16 * No change (9) Hypothyroidism: Code(s): E03.9 - Hypothyroidism, unspecified Status: Chronic Assessment and Plan: * Resumed Levothyroxine 03/16 * Will check TSH level * Continue Synthroid 03/17 * TSH 0.89 (10) Hypotension: Code(s): I95.9 - Hypotension, unspecified Status: Acute Assessment and Plan: * resume patient's midodrine * monitor BP per unit protocol 03/16 * No change (11) Pneumonia: Qualifiers: Laterality: left Lung location: lower lobe of lung Pneumonia type: due to unspecified organism Qualified Code(s): J18.9 - Pneumonia, unspecified organism Code(s): J18.9 - Pneumonia, unspecified organism Status: Resolved Assessment and Plan: CXR left basilar infiltrates suspicious for pneumonia, normal WBC, afebrile, on room air but does have generalized weakness that has worsened over the last week * given Rocephin and azithromycin in the emergency department * transitioned to oral Augmentin * oxygen p.r.n. * incentive spirometer 03/16 * Continue Augmentin and Azithromycin * Continue IS while awake 03/17 * Continue current treatment plan 03/18 * No change RESOLVED 03/23 Repeat chest xray awaiting result WBC have increased to 23 unknown cause no s/s of infection 03/27: * WBC had trended down likely secondary to medication 04/03 * pneumonia resolved Time Spent With Patient Time with patient: 15 - 25 minutes Subjective Date/time seen: 04/03/24 08:58 Interval history: Interval history: (copy forward from chart) Patient is a 68-year-old female who was sent over to the emergency department by her primary care physician due to increased generalized weakness which has gotten increasingly worse over the last week. Patient is a poor historian some information was gathered via the medical chart as stated from emergency department family has requested patient be placed in long care facility unable to care for self anymore. patient with past medical history of bipolar disorder, CHF, failure to thrive, and depression. initial findings in the emergency department did show a chest x-ray with right lower lobe infiltrate suggestive of pneumonia. Patient with normal WBC, afebrile no respiratory distress. Patient denied CP, SOB, Cough, dizziness, nausea, and vomiting overall states she just did not feel well and has had worsening weakness. upon assessment patient was found to also a systemic rash lower and upper extremities as well as her trunk back as reported from medical chart when she saw her primary patient's daughter reported this began about a month ago with no new medications or changes. patient was admitted to the medical unit for pneumonia, generalized weakness, and failure to thrive. labs were reviewed and unremarkable vital stable. Subjective: Patient denies any new complaints today. labs reviewed Review of Systems Review of Systems: All systems reviewed & are unremarkable except as noted in HPI and below Exam Narrative: General: failure to thrive, very malnourished Cardiac: Normal S1 and S2. No murmur, gallops or friction rubs, peripheral pulses intact. Respiratory: Lungs clear to auscultation, no adventitious lung sounds, currently on room air Gastrointestinal: soft, non-distended, non-tender, normoactive bowel sounds. : voiding without difficulty. Extremities: moves all extremities well, no edema, currently in mittens due to her excessive scratching Skin: rash has cleared however she does have some scabbed areas on her arms from scratching Neuro: Alert and oriented x1 to 2 at best Objective Data Vital Signs Vital Signs: Vital Signs - 24 hr 04/02/24 16:00 04/03/24 00:00 Temperature 96.4 F L 97.6 F Pulse Rate 78 88 Respiratory Rate 16 15 Blood Pressure 128/72 99/55 L Pulse Oximetry 94 93 Oxygen Delivery Room Air Room Air Intake/Output Intake/Output: Intake & Output 03/31/24 04/01/24 04/02/24 04/03/24 23:59 23:59 23:59 23:59 Intake Total 1650 1916 1540 Balance 1650 1916 1540 Meds/Results Medications: Active Medications Generic Name Dose Route Start Last Admin Trade Name Freq PRN Reason Stop Dose Admin Acetaminophen 650 mg 03/14/24 20:34 03/31/24 20:43 Acetaminophen 325 Mg Tablet PO 650 mg Q4H PRN Administration Mild Pain (1-3) or Fever Al Hydrox/Mg Hydrox/Simethicone 30 ml 03/14/24 20:34 Mag Hydrox/Al Hydrox/Simeth 30 Ml Udc PO QID PRN Dyspepsia Ascorbic Acid 500 mg 03/15/24 09:00 04/02/24 17:01 Ascorbic Acid 500 Mg Tablet PO 500 mg BID MINH Administration Aspirin 81 mg 03/15/24 09:00 04/02/24 08:22 Aspirin 81 Mg Enteric Tablet PO 81 mg QAM MINH Administration Atorvastatin Calcium 80 mg 03/15/24 09:00 04/02/24 08:22 Atorvastatin 40 Mg Tablet PO 80 mg DAILY MINH Administration Bupropion HCl 150 mg 03/15/24 09:00 04/02/24 08:23 Bupropion Hcl Xl (24 Hr) 150 Mg Tabcr PO 150 mg DAILY MINH Administration Buspirone HCl 15 mg 03/15/24 09:00 04/02/24 17:01 Buspirone Hcl 5 Mg Tablet PO 15 mg TID MINH Administration Clopidogrel Bisulfate 75 mg 03/15/24 09:00 04/02/24 08:23 Clopidogrel Bisulfate 75 Mg Tablet PO 75 mg DAILY MINH Administration Cyanocobalamin 500 mcg 03/15/24 09:00 04/02/24 08:23 Cyanocobalamin 500 Mcg Tablet PO 500 mcg QAM MINH Administration Diphenhydramine HCl 25 mg 03/15/24 10:06 04/02/24 21:28 Diphenhydramine Hcl Cap 25 Mg Capsule PO 25 mg Q6H PRN Administration Itching Divalproex Sodium 500 mg 03/14/24 22:15 04/02/24 21:[address] 250 Mg Tabec PO 500 mg Q12H MINH Administration Enoxaparin Sodium 40 mg 03/16/24 09:00 04/02/24 08:23 Enoxaparin 40 Mg/0.4 Ml Syringe SUB-Q 40 mg DAILY MINH Administration Escitalopram Oxalate 10 mg 03/14/24 21:00 04/02/24 21:28 Escitalopram Oxalate 10 Mg Tablet PO 10 mg HS MINH Administration Folic Acid 1 mg 03/15/24 09:00 04/02/24 08:24 Folic Acid 1 Mg Tablet PO 1 mg DAILY MINH Administration Gabapentin 100 mg 03/14/24 22:00 04/03/24 06:28 Gabapentin 100 Mg Capsule BY MOUTH 100 mg Q8HR MINH Administration Hydrocortisone 1 applic 03/30/24 09:30 04/02/24 21:28 Hydrocortisone 2.5% Cream 30 Gm Tube TOPICAL 1 applic Q12HR MINH Administration Hydroxyzine HCl 25 mg 03/29/24 18:00 04/03/24 06:28 Hydroxyzine Hcl 25 Mg Tablet PO 25 mg Q6HR MINH Administration Levothyroxine Sodium 75 mcg 03/15/24 09:00 04/03/24 06:28 Levothyroxine Sodium 75 Mcg Tablet PO 75 mcg DAILY@0630 MINH Administration Megestrol Acetate 40 mg 03/16/24 13:00 04/02/24 21:29 Megestrol Acetate (*Chemo) 40 Mg Tablet PO 40 mg QID MINH Administration Trazodone HCl 100 mg 03/14/24 22:25 04/02/24 21:28 Trazodone Hcl 50 Mg Tablet PO 100 mg HS PRN Administration Insomnia Radiology Results: ITS Impressions Chest X-Ray 03/23/24 08:35 IMPRESSION: 1. No acute cardiopulmonary disease. Labs Labs: Laboratory Results - last 24 hr 04/03/24 05:17 WBC 12.0 H RBC 3.14 L Hgb 9.5 L Hct 30.1 L MCV 95.9 MCH 30.3 MCHC 31.6 L RDW 15.3 H Plt Count 573 H MPV 8.5 L % Immature Plt Fraction 0.6 L Sodium 136 Potassium 4.7 Chloride 101 Carbon Dioxide 30 Anion Gap 5 BUN 15 Creatinine 0.62 Estim Creat Clear Calc 57 Estimated GFR > 60 Glucose 86 Calculated Osmolality 281 L Calcium 9.1 Total Bilirubin 0.2 AST 10 L ALT 23 Alkaline Phosphatase 70 Total Protein 6.4 Albumin 2.1 L Quality VTE Prophylaxis VTE prophylaxis: pharmacologic ordered
[2024-04-03] MEDS: busPIRone HCL 5 MG TABLET 15 MG PO ×3 (09:34→17:38)
[2024-04-03] MEDS: DIVALPROEX SODIUM DR 250 MG TABEC 500 MG PO ×2 (09:34→20:56)
[2024-04-03] MEDS: HYDROCORTISONE 2.5% CREAM 30 GM TUBE 1 APPLIC TOPICAL ×2 (09:34→20:57)
[2024-04-03] MEDS: ENOXAPARIN 40 MG/0.4 ML SYRINGE SUB-Q (09:34)
[2024-04-03] MEDS: CYANOCOBALAMIN 500 MCG TABLET PO (09:35)
[2024-04-03] MEDS: ASCORBIC ACID 500 MG TABLET PO ×2 (09:35→17:39)
[2024-04-03] MEDS: ASPIRIN 81 MG ENTERIC TABLET PO (09:35)
[2024-04-03] MEDS: ATORVASTATIN 40 MG TABLET 80 MG PO (09:35)
[2024-04-03] MEDS: CLOPIDOGREL BISULFATE 75 MG TABLET PO (09:36)
[2024-04-03] MEDS: FOLIC ACID 1 MG TABLET PO (09:36)
[2024-04-03] MEDS: buPROPion HCL XL (24 HR) 150 MG TABCR PO (09:36)
[2024-04-03] MEDS: MEGESTROL ACETATE (*CHEMO) 40 MG TABLET PO ×4 (09:36→20:57)
[2024-04-03 16:00] VITALS: BP 106/60; PULSE 86; RESP 18; TEMP 35.6; O2SAT 98
[2024-04-03] MEDS: ESCITALOPRAM OXALATE 10 MG TABLET PO (20:57)
[2024-04-03] MEDS: ACETAMINOPHEN 325 MG TABLET 650 MG PO (20:58)
--- NOTE | 2024-04-03 22:38 | PC.NURSE ---
Patient in bed with siderails up x2. Bed alarm on. Safety mitts on. Patient incont of bowel and bladder. Pericare and HS care provided. Frequent drinks of water offered.
[2024-04-04] VITALS: BP 107/52; PULSE 94; RESP 20; TEMP 36.7; O2SAT 93
--- NOTE | 2024-04-04 00:10 | PC.NURSE ---
Pt remains dry at this time; Pt assisted with repositioning to her side and pt was given Atarax 25 mg PO as ordered.
[2024-04-04] MEDS: hydrOXYzine HCL 25 MG TABLET PO ×4 (00:11→17:18)
--- NOTE | 2024-04-04 02:08 | PC.NURSE ---
Pt asleep and no signs of discomfort noted.
--- NOTE | 2024-04-04 04:05 | PC.NURSE ---
Pt asleep and no signs of scratching noted.
[2024-04-04] MEDS: GABAPENTIN 100 MG CAPSULE BY MOUTH ×3 (05:42→21:47)
[2024-04-04] MEDS: LEVOTHYROXINE SODIUM 75 MCG TABLET PO (05:43)
--- NOTE | 2024-04-04 05:51 | PC.NURSE ---
Pt incontinent of a large amount of urine and a soft, brown stool. Pt was cleaned, changed and repositioned to comfort. Pt was givengabapentin 100 mg, Atarax 25 mg and [id number] mcg PO as ordered.
[2024-04-04 08:00] VITALS: BP 113/72; PULSE 83; RESP 18; TEMP 36.2; O2SAT 96
[2024-04-04] MEDS: buPROPion HCL XL (24 HR) 150 MG TABCR PO (09:51)
[2024-04-04] MEDS: CYANOCOBALAMIN 500 MCG TABLET PO (09:51)
[2024-04-04] MEDS: FOLIC ACID 1 MG TABLET PO (09:51)
[2024-04-04] MEDS: ASCORBIC ACID 500 MG TABLET PO ×2 (09:51→17:19)
[2024-04-04] MEDS: DIVALPROEX SODIUM DR 250 MG TABEC 500 MG PO ×2 (09:51→21:46)
[2024-04-04] MEDS: MEGESTROL ACETATE (*CHEMO) 40 MG TABLET PO ×4 (09:51→21:47)
[2024-04-04] MEDS: CLOPIDOGREL BISULFATE 75 MG TABLET PO (09:51)
[2024-04-04] MEDS: ATORVASTATIN 40 MG TABLET 80 MG PO (09:51)
[2024-04-04] MEDS: busPIRone HCL 5 MG TABLET 15 MG PO ×3 (09:51→15:20)
[2024-04-04] MEDS: ENOXAPARIN 40 MG/0.4 ML SYRINGE SUB-Q (09:51)
[2024-04-04] MEDS: ASPIRIN 81 MG ENTERIC TABLET PO (09:51)
[2024-04-04] MEDS: HYDROCORTISONE 2.5% CREAM 30 GM TUBE 1 APPLIC TOPICAL ×2 (09:52→21:47)
--- NOTE | 2024-04-04 10:01 | P.PNIM_ITS ---
Progress Note: A&P Assessment and Plan (1) Pneumonia: Qualifiers: Laterality: left Lung location: lower lobe of lung Pneumonia type: due to unspecified organism Qualified Code(s): J18.9 - Pneumonia, unspecified organism Code(s): J18.9 - Pneumonia, unspecified organism Status: Resolved Assessment and Plan: CXR left basilar infiltrates suspicious for pneumonia, normal WBC, afebrile, on room air but does have generalized weakness that has worsened over the last week * given Rocephin and azithromycin in the emergency department * transitioned to oral Augmentin * oxygen p.r.n. * incentive spirometer 03/16 * Continue Augmentin and Azithromycin * Continue IS while awake 03/17 * Continue current treatment plan 03/18 * No change RESOLVED 03/23 Repeat chest xray awaiting result WBC have increased to 23 unknown cause no s/s of infection (2) Rash: Code(s): R21 - Rash and other nonspecific skin eruption Status: Acute Assessment and Plan: * systemic rash upper and lower extremities chest and back * treat with prednisone added Benadryl for itching 03/16 * Rash all over body, BUE, BLE and inbetween fingers and toes * Could be a form of eczema, however can not rule out scabies. Left message for daughter to call back. * Continue prednisone * Will order permethrin 5% topical cream x1 now. * Start Atarax for itching * Will isolate for possible scabies 03/17 * Rash showing some improvement with permethrin 5% cream * Continue atarax for itching 03/18 * rash improving but still with mild itch * Stopped prednisone * can continue with cream * Bed bugs vs scabies vs systemic dermatitis 03/20 * No change to current treatment plan 03/23/2024 * Ivermectin given yesterday * Permethrin will be administered today * prn medication * skin looks a lot better (3) Generalized weakness: Code(s): R53.1 - Weakness Status: Acute Assessment and Plan: * likely secondary to pneumonia and failure to thrive * PT/OT for evaluation * family requesting SNF 03/16 * Continue PT and OT * Case management following for outpatient rehab needs 03/17 * Continue PT and OT * Will require placement 03/20 * No change * Case coordination working on placement 03/21 * Department of family services contacted as we are still unsuccessful in getting in touch with the daughter. Patient is unable to make decisions for herself. Case management following. * continue PT and OT (4) Moderate protein-calorie malnutrition: Code(s): E44.0 - Moderate protein-calorie malnutrition Status: Chronic Assessment and Plan: * secondary to failure to thrive * added protein shakes to each meal * regular diet * Resumed Megace 03/16 * encourage po intake * No change to current treatment plan 03/17 * No change (5) Adult failure to thrive: Code(s): R62.7 - Adult failure to thrive Status: Acute Assessment and Plan: patient has been worsening for the last year patient's passed around a year ago suffering from depression, bipolar disorder and anxiety * terminologist placement * see above 3 03/16 * Continue PT and OT * Case management working on placement 03/17 * No change (6) Depression: Code(s): F32.9 - Major depressive disorder, single episode, unspecified Status: Chronic Assessment and Plan: * Resumed home medications BuSpar and Wellbutrin, citalopram 03/16 * No change (7) Anxiety: Code(s): F41.9 - Anxiety disorder, unspecified Status: Chronic Assessment and Plan: * Resumed home medications BuSpar and Wellbutrin 03/16 * No change (8) Bipolar disorder: Code(s): F31.9 - Bipolar disorder, unspecified Status: Chronic Assessment and Plan: * Resumed home medications divalproex 03/16 * No change (9) Hypothyroidism: Code(s): E03.9 - Hypothyroidism, unspecified Status: Chronic Assessment and Plan: * Resumed Levothyroxine 03/16 * Will check TSH level * Continue Synthroid 03/17 * TSH 0.89 (10) Hypotension: Code(s): I95.9 - Hypotension, unspecified Status: Acute Assessment and Plan: * resume patient's midodrine * monitor BP per unit protocol 03/16 * No change Subjective Date/time seen: 04/04/24 10:01 Interval history: Patient continue to be stable at this time and we are waiting on placement. Interval history: (copy forward from chart) Patient is a 68-year-old female who was sent over to the emergency department by her primary care physician due to increased generalized weakness which has gotten increasingly worse over the last week. Patient is a poor historian some information was gathered via the medical chart as stated from emergency department family has requested patient be placed in long care facility unable to care for self anymore. patient with past medical history of bipolar disorder, CHF, failure to thrive, and depression. initial findings in the emergency department did show a chest x-ray with right lower lobe infiltrate suggestive of pneumonia. Patient with normal WBC, afebrile no respiratory distress. Patient denied CP, SOB, Cough, dizziness, nausea, and vomiting overall states she just did not feel well and has had worsening weakness. upon assessment patient was found to also a systemic rash lower and upper extremities as well as her trunk back as reported from medical chart when she saw her primary patient's daughter reported this began about a month ago with no new medications or changes. patient was admitted to the medical unit for pneumonia, generalized weakness, and failure to thrive. labs were reviewed and unremarkable vital stable. Subjective: Patient denies any new complaints today. labs reviewed Exam Narrative: General: failure to thrive, very malnourished Cardiac: Normal S1 and S2. No murmur, gallops or friction rubs, peripheral pulse s intact. Respiratory: Lungs clear to auscultation, no adventitious lung sounds, currently on room air Gastrointestinal: soft, non-distended, non-tender, normoactive bowel sounds. : voiding without difficulty. Extremities: moves all extremities well, no edema Skin: rash noted all over torso, BUE, BLE with scabbed and bleeding areas from scratching--improved Neuro: Alert Objective Data Vital Signs Vital Signs: Vital Signs - 24 hr 04/03/24 16:00 04/04/24 00:00 Temperature 96.0 F L 98.1 F Pulse Rate 86 94 Respiratory Rate 18 20 Blood Pressure 106/60 107/52 L Pulse Oximetry 98 93 Oxygen Delivery Room Air Room Air Intake/Output Intake/Output: Intake & Output 04/01/24 04/02/24 04/03/24 04/04/24 23:59 23:59 23:59 23:59 Intake Total 1916 1540 1160 100 Balance 1916 1540 1160 100 Meds/Results Medications: Active Medications Generic Name Dose Route Start Last Admin Trade Name Freq PRN Reason Stop Dose Admin Acetaminophen 650 mg 03/14/24 20:34 04/03/24 20:58 Acetaminophen 325 Mg Tablet PO 650 mg Q4H PRN Administration Mild Pain (1-3) or Fever Al Hydrox/Mg Hydrox/Simethicone 30 ml 03/14/24 20:34 Mag Hydrox/Al Hydrox/Simeth 30 Ml Udc PO QID PRN Dyspepsia Ascorbic Acid 500 mg 03/15/24 09:00 04/04/24 09:51 Ascorbic Acid 500 Mg Tablet PO 500 mg BID MINH Administration Aspirin 81 mg 03/15/24 09:00 04/04/24 09:51 Aspirin 81 Mg Enteric Tablet PO 81 mg QAM MINH Administration Atorvastatin Calcium 80 mg 03/15/24 09:00 04/04/24 09:51 Atorvastatin 40 Mg Tablet PO 80 mg DAILY MINH Administration Bupropion HCl 150 mg 03/15/24 09:00 04/04/24 09:51 Bupropion Hcl Xl (24 Hr) 150 Mg Tabcr PO 150 mg DAILY MINH Administration Buspirone HCl 15 mg 03/15/24 09:00 04/04/24 09:51 Buspirone Hcl 5 Mg Tablet PO 15 mg TID MINH Administration Clopidogrel Bisulfate 75 mg 03/15/24 09:00 04/04/24 09:51 Clopidogrel Bisulfate 75 Mg Tablet PO 75 mg DAILY MINH Administration Cyanocobalamin 500 mcg 03/15/24 09:00 04/04/24 09:51 Cyanocobalamin 500 Mcg Tablet PO 500 mcg QAM MINH Administration Diphenhydramine HCl 25 mg 03/15/24 10:06 04/02/24 21:28 Diphenhydramine Hcl Cap 25 Mg Capsule PO 25 mg Q6H PRN Administration Itching Divalproex Sodium 500 mg 03/14/24 22:15 04/04/24 09:[address] 250 Mg Tabec PO 500 mg Q12H MINH Administration Enoxaparin Sodium 40 mg 03/16/24 09:00 04/04/24 09:51 Enoxaparin 40 Mg/0.4 Ml Syringe SUB-Q 40 mg DAILY MINH Administration Escitalopram Oxalate 10 mg 03/14/24 21:00 04/03/24 20:57 Escitalopram Oxalate 10 Mg Tablet PO 10 mg HS MINH Administration Folic Acid 1 mg 03/15/24 09:00 04/04/24 09:51 Folic Acid 1 Mg Tablet PO 1 mg DAILY MINH Administration Gabapentin 100 mg 03/14/24 22:00 04/04/24 05:42 Gabapentin 100 Mg Capsule BY MOUTH 100 mg Q8HR MINH Administration Hydrocortisone 1 applic 03/30/24 09:30 04/04/24 09:52 Hydrocortisone 2.5% Cream 30 Gm Tube TOPICAL 1 applic Q12HR MINH Administration Hydroxyzine HCl 25 mg 03/29/24 18:00 04/04/24 05:43 Hydroxyzine Hcl 25 Mg Tablet PO 25 mg Q6HR MINH Administration Levothyroxine Sodium 75 mcg 03/15/24 09:00 04/04/24 05:43 Levothyroxine Sodium 75 Mcg Tablet PO 75 mcg DAILY@0630 MINH Administration Megestrol Acetate 40 mg 03/16/24 13:00 04/04/24 09:51 Megestrol Acetate (*Chemo) 40 Mg Tablet PO 40 mg QID MINH Administration Trazodone HCl 100 mg 03/14/24 22:25 04/02/24 21:28 Trazodone Hcl 50 Mg Tablet PO 100 mg HS PRN Administration Insomnia Radiology Results: ITS Impressions Chest X-Ray 03/23/24 08:35 IMPRESSION: 1. No acute cardiopulmonary disease.
[2024-04-04 16:00] VITALS: BP 110/70; PULSE 72; RESP 16; TEMP 36; O2SAT 95
--- NOTE | 2024-04-04 18:08 | PC.NURSE ---
Patient up in chair for supper. Feeds self meal. Chair alarm on. Continues to scratch at skin causing bleeding. Verbal cues given to not scratch, patient continues to scratch. Patient incont of bowel and bladder both before and after supper. Pericare given.
[2024-04-04] MEDS: traZODone HCL 50 MG TABLET 100 MG PO (21:46)
[2024-04-04] MEDS: ESCITALOPRAM OXALATE 10 MG TABLET PO (21:47)
[2024-04-05] VITALS: BP 119/57; PULSE 87; RESP 16; TEMP 37.1; O2SAT 93
[2024-04-05] MEDS: hydrOXYzine HCL 25 MG TABLET PO ×4 (06:33→23:08)
[2024-04-05] MEDS: LEVOTHYROXINE SODIUM 75 MCG TABLET PO (06:33)
[2024-04-05] MEDS: GABAPENTIN 100 MG CAPSULE BY MOUTH ×3 (06:34→21:40)
[2024-04-05 08:00] VITALS: BP 111/72; BP 97/47; PULSE 82; PULSE 90; RESP 16; RESP 18; TEMP 36.4; TEMP 36.5; O2SAT 93; O2SAT 98
[2024-04-05] MEDS: ASPIRIN 81 MG ENTERIC TABLET PO (09:17)
[2024-04-05] MEDS: ASCORBIC ACID 500 MG TABLET PO ×2 (09:17→16:30)
[2024-04-05] MEDS: busPIRone HCL 5 MG TABLET 15 MG PO ×3 (09:18→16:30)
[2024-04-05] MEDS: MEGESTROL ACETATE (*CHEMO) 40 MG TABLET PO ×4 (09:18→21:39)
[2024-04-05] MEDS: buPROPion HCL XL (24 HR) 150 MG TABCR PO (09:18)
[2024-04-05] MEDS: HYDROCORTISONE 2.5% CREAM 30 GM TUBE 1 APPLIC TOPICAL ×2 (09:18→21:41)
[2024-04-05] MEDS: FOLIC ACID 1 MG TABLET PO (09:18)
[2024-04-05] MEDS: CYANOCOBALAMIN 500 MCG TABLET PO (09:19)
[2024-04-05] MEDS: CLOPIDOGREL BISULFATE 75 MG TABLET PO (09:19)
[2024-04-05] MEDS: ATORVASTATIN 40 MG TABLET 80 MG PO (09:19)
[2024-04-05] MEDS: ENOXAPARIN 40 MG/0.4 ML SYRINGE SUB-Q (09:19)
[2024-04-05] MEDS: DIVALPROEX SODIUM DR 250 MG TABEC 500 MG PO ×2 (09:21→21:40)
--- NOTE | 2024-04-05 12:02 | P.PN_ITS ---
Progress Note: A&P Assessment and Plan (1) Pneumonia: Qualifiers: Laterality: left Lung location: lower lobe of lung Pneumonia type: due to unspecified organism Qualified Code(s): J18.9 - Pneumonia, unspecified organism Code(s): J18.9 - Pneumonia, unspecified organism Status: Resolved Assessment and Plan: CXR left basilar infiltrates suspicious for pneumonia, normal WBC, afebrile, on room air but does have generalized weakness that has worsened over the last week * given Rocephin and azithromycin in the emergency department * transitioned to oral Augmentin * oxygen p.r.n. * incentive spirometer 03/16 * Continue Augmentin and Azithromycin * Continue IS while awake 03/17 * Continue current treatment plan 03/18 * No change RESOLVED 03/23 Repeat chest xray awaiting result WBC have increased to 23 unknown cause no s/s of infection (2) Rash: Code(s): R21 - Rash and other nonspecific skin eruption Status: Acute Assessment and Plan: * systemic rash upper and lower extremities chest and back * treat with prednisone added Benadryl for itching 03/16 * Rash all over body, BUE, BLE and inbetween fingers and toes * Could be a form of eczema, however can not rule out scabies. Left message for daughter to call back. * Continue prednisone * Will order permethrin 5% topical cream x1 now. * Start Atarax for itching * Will isolate for possible scabies 03/17 * Rash showing some improvement with permethrin 5% cream * Continue atarax for itching 03/18 * rash improving but still with mild itch * Stopped prednisone * can continue with cream * Bed bugs vs scabies vs systemic dermatitis 03/20 * No change to current treatment plan 03/23/2024 * Ivermectin given yesterday * Permethrin will be administered today * prn medication * skin looks a lot better (3) Generalized weakness: Code(s): R53.1 - Weakness Status: Acute Assessment and Plan: * likely secondary to pneumonia and failure to thrive * PT/OT for evaluation * family requesting SNF 03/16 * Continue PT and OT * Case management following for outpatient rehab needs 03/17 * Continue PT and OT * Will require placement 03/20 * No change * Case coordination working on placement 03/21 * Department of family services contacted as we are still unsuccessful in getting in touch with the daughter. Patient is unable to make decisions for herself. Case management following. * continue PT and OT (4) Moderate protein-calorie malnutrition: Code(s): E44.0 - Moderate protein-calorie malnutrition Status: Chronic Assessment and Plan: * secondary to failure to thrive * added protein shakes to each meal * regular diet * Resumed Megace 03/16 * encourage po intake * No change to current treatment plan 03/17 * No change (5) Adult failure to thrive: Code(s): R62.7 - Adult failure to thrive Status: Acute Assessment and Plan: patient has been worsening for the last year patient's passed around a year ago suffering from depression, bipolar disorder and anxiety * terminal block assembler placement * see above 3 03/16 * Continue PT and OT * Case management working on placement 03/17 * No change (6) Depression: Code(s): F32.9 - Major depressive disorder, single episode, unspecified Status: Chronic Assessment and Plan: * Resumed home medications BuSpar and Wellbutrin, citalopram 03/16 * No change (7) Anxiety: Code(s): F41.9 - Anxiety disorder, unspecified Status: Chronic Assessment and Plan: * Resumed home medications BuSpar and Wellbutrin 03/16 * No change (8) Bipolar disorder: Code(s): F31.9 - Bipolar disorder, unspecified Status: Chronic Assessment and Plan: * Resumed home medications divalproex 03/16 * No change (9) Hypothyroidism: Code(s): E03.9 - Hypothyroidism, unspecified Status: Chronic Assessment and Plan: * Resumed Levothyroxine 03/16 * Will check TSH level * Continue Synthroid 03/17 * TSH 0.89 (10) Hypotension: Code(s): I95.9 - Hypotension, unspecified Status: Acute Assessment and Plan: * resume patient's midodrine * monitor BP per unit protocol 03/16 * No change Subjective Date/time seen: 04/05/24 12:02 Interval history: Patient more tired than ususal we will swab her for virus at this time she remains afebrile. We are awaiting placement Exam Narrative: General: failure to thrive, very malnourished Cardiac: Normal S1 and S2. No murmur, gallops or friction rubs, peripheral pulses intact. Respiratory: Lungs clear to auscultation, no adventitious lung sounds, currently on room air Gastrointestinal: soft, non-distended, non-tender, normoactive bowel sounds. : voiding without difficulty. Extremities: moves all extremities well, no edema Skin: rash noted all over torso, BUE, BLE with scabbed and bleeding areas from scratching--improved Neuro: Alert Objective Data Vital Signs Vital Signs: Vital Signs - 24 hr 04/04/24 16:00 04/05/24 00:00 04/05/24 08:00 Temperature 96.8 F L 98.7 F 97.6 F Pulse Rate 72 87 82 Respiratory Rate 16 16 18 Blood Pressure 110/70 119/57 L 111/72 Pulse Oximetry 95 93 98 Oxygen Delivery Room Air Room Air Room Air 04/05/24 08:00 Temperature 97.7 F Pulse Rate 90 Respiratory Rate 16 Blood Pressure 97/47 L Pulse Oximetry 93 Oxygen Delivery Room Air Intake/Output Intake/Output: Intake & Output 04/02/24 04/03/24 04/04/24 04/05/24 23:59 23:59 23:59 23:59 Intake Total 1540 1160 2643 300 Balance 1540 1160 2643 300 Meds/Results Medications: Active Medications Generic Name Dose Route Start Last Admin Trade Name Freq PRN Reason Stop Dose Admin Acetaminophen 650 mg 03/14/24 20:34 04/03/24 20:58 Acetaminophen 325 Mg Tablet PO 650 mg Q4H PRN Administration Mild Pain (1-3) or Fever Al Hydrox/Mg Hydrox/Simethicone 30 ml 03/14/24 20:34 Mag Hydrox/Al Hydrox/Simeth 30 Ml Udc PO QID PRN Dyspepsia Ascorbic Acid 500 mg 03/15/24 09:00 04/05/24 09:17 Ascorbic Acid 500 Mg Tablet PO 500 mg BID MINH Administration Aspirin 81 mg 03/15/24 09:00 04/05/24 09:17 Aspirin 81 Mg Enteric Tablet PO 81 mg QAM MINH Administration Atorvastatin Calcium 80 mg 03/15/24 09:00 04/05/24 09:19 Atorvastatin 40 Mg Tablet PO 80 mg DAILY MINH Administration Bupropion HCl 150 mg 03/15/24 09:00 04/05/24 09:18 Bupropion Hcl Xl (24 Hr) 150 Mg Tabcr PO 150 mg DAILY MINH Administration Buspirone HCl 15 mg 03/15/24 09:00 04/05/24 09:18 Buspirone Hcl 5 Mg Tablet PO 15 mg TID MINH Administration Clopidogrel Bisulfate 75 mg 03/15/24 09:00 04/05/24 09:19 Clopidogrel Bisulfate 75 Mg Tablet PO 75 mg DAILY MINH Administration Cyanocobalamin 500 mcg 03/15/24 09:00 04/05/24 09:19 Cyanocobalamin 500 Mcg Tablet PO 500 mcg QAM MINH Administration Diphenhydramine HCl 25 mg 03/15/24 10:06 04/02/24 21:28 Diphenhydramine Hcl Cap 25 Mg Capsule PO 25 mg Q6H PRN Administration Itching Divalproex Sodium 500 mg 03/14/24 22:15 04/05/24 09:[address] 250 Mg Tabec PO 500 mg Q12H MINH Administration Enoxaparin Sodium 40 mg 03/16/24 09:00 04/05/24 09:19 Enoxaparin 40 Mg/0.4 Ml Syringe SUB-Q 40 mg DAILY MINH Administration Escitalopram Oxalate 10 mg 03/14/24 21:00 04/04/24 21:47 Escitalopram Oxalate 10 Mg Tablet PO 10 mg HS MINH Administration Folic Acid 1 mg 03/15/24 09:00 04/05/24 09:18 Folic Acid 1 Mg Tablet PO 1 mg DAILY MINH Administration Gabapentin 100 mg 03/14/24 22:00 04/05/24 06:34 Gabapentin 100 Mg Capsule BY MOUTH 100 mg Q8HR MINH Administration Hydrocortisone 1 applic 03/30/24 09:30 04/05/24 09:18 Hydrocortisone 2.5% Cream 30 Gm Tube TOPICAL 1 applic Q12HR MINH Administration Hydroxyzine HCl 25 mg 03/29/24 18:00 04/05/24 06:33 Hydroxyzine Hcl 25 Mg Tablet PO 25 mg Q6HR MINH Administration Levothyroxine Sodium 75 mcg 03/15/24 09:00 04/05/24 06:33 Levothyroxine Sodium 75 Mcg Tablet PO 75 mcg DAILY@0630 MINH Administration Megestrol Acetate 40 mg 03/16/24 13:00 04/05/24 09:18 Megestrol Acetate (*Chemo) 40 Mg Tablet PO 40 mg QID MINH Administration Trazodone HCl 100 mg 03/14/24 22:25 04/04/24 21:46 Trazodone Hcl 50 Mg Tablet PO 100 mg HS PRN Administration Insomnia Radiology Results: ITS Impressions Chest X-Ray 03/23/24 08:35 IMPRESSION: 1. No acute cardiopulmonary disease.
[2024-04-05 13:02] LABS: SARS-CoV-2 RNA PCR Negative (Negative)
[2024-04-05 16:00] VITALS: BP 122/62; PULSE 60; RESP 18; TEMP 36.6; O2SAT 97
[2024-04-05] MEDS: traZODone HCL 50 MG TABLET 100 MG PO (21:40)
[2024-04-05] MEDS: ESCITALOPRAM OXALATE 10 MG TABLET PO (21:41)
[2024-04-06] VITALS: BP 113/67; PULSE 80; RESP 16; TEMP 36.7; O2SAT 96
[2024-04-06] MEDS: LEVOTHYROXINE SODIUM 75 MCG TABLET PO (05:49)
[2024-04-06] MEDS: hydrOXYzine HCL 25 MG TABLET PO ×4 (05:49→23:15)
[2024-04-06] MEDS: GABAPENTIN 100 MG CAPSULE BY MOUTH ×3 (05:49→21:56)
[2024-04-06 08:00] VITALS: BP 129/70; PULSE 84; RESP 15; TEMP 36.4; O2SAT 97
[2024-04-06] MEDS: ENOXAPARIN 40 MG/0.4 ML SYRINGE SUB-Q (09:53)
[2024-04-06] MEDS: FOLIC ACID 1 MG TABLET PO (09:54)
[2024-04-06] MEDS: buPROPion HCL XL (24 HR) 150 MG TABCR PO (09:54)
[2024-04-06] MEDS: ASCORBIC ACID 500 MG TABLET PO ×2 (09:54→18:26)
[2024-04-06] MEDS: ATORVASTATIN 40 MG TABLET 80 MG PO (09:54)
[2024-04-06] MEDS: MEGESTROL ACETATE (*CHEMO) 40 MG TABLET PO ×4 (09:54→21:56)
[2024-04-06] MEDS: ASPIRIN 81 MG ENTERIC TABLET PO (09:54)
[2024-04-06] MEDS: busPIRone HCL 5 MG TABLET 15 MG PO ×3 (09:54→18:26)
[2024-04-06] MEDS: DIVALPROEX SODIUM DR 250 MG TABEC 500 MG PO ×2 (09:54→21:56)
[2024-04-06] MEDS: CYANOCOBALAMIN 500 MCG TABLET PO (09:55)
[2024-04-06] MEDS: CLOPIDOGREL BISULFATE 75 MG TABLET PO (09:55)
[2024-04-06] MEDS: HYDROCORTISONE 2.5% CREAM 30 GM TUBE 1 APPLIC TOPICAL ×2 (10:09→21:56)
--- NOTE | 2024-04-06 14:15 | P.PNIM_ITS ---
Progress Note: A&P Assessment and Plan (1) Pneumonia: Qualifiers: Laterality: left Lung location: lower lobe of lung Pneumonia type: due to unspecified organism Qualified Code(s): J18.9 - Pneumonia, unspecified organism Code(s): J18.9 - Pneumonia, unspecified organism Status: Resolved Assessment and Plan: CXR left basilar infiltrates suspicious for pneumonia, normal WBC, afebrile, on room air but does have generalized weakness that has worsened over the last week * given Rocephin and azithromycin in the emergency department * transitioned to oral Augmentin * oxygen p.r.n. * incentive spirometer 03/16 * Continue Augmentin and Azithromycin * Continue IS while awake 03/17 * Continue current treatment plan 03/18 * No change RESOLVED 03/23 Repeat chest xray awaiting result WBC have increased to 23 unknown cause no s/s of infection (2) Rash: Code(s): R21 - Rash and other nonspecific skin eruption Status: Acute Assessment and Plan: * systemic rash upper and lower extremities chest and back * treat with prednisone added Benadryl for itching 03/16 * Rash all over body, BUE, BLE and inbetween fingers and toes * Could be a form of eczema, however can not rule out scabies. Left message for daughter to call back. * Continue prednisone * Will order permethrin 5% topical cream x1 now. * Start Atarax for itching * Will isolate for possible scabies 03/17 * Rash showing some improvement with permethrin 5% cream * Continue atarax for itching 03/18 * rash improving but still with mild itch * Stopped prednisone * can continue with cream * Bed bugs vs scabies vs systemic dermatitis 03/20 * No change to current treatment plan 03/23/2024 * Ivermectin given yesterday * Permethrin will be administered today * prn medication * skin looks a lot better 04/06 * skin almost completely healed (3) Generalized weakness: Code(s): R53.1 - Weakness Status: Acute Assessment and Plan: * likely secondary to pneumonia and failure to thrive * PT/OT for evaluation * family requesting SNF 03/16 * Continue PT and OT * Case management following for outpatient rehab needs 03/17 * Continue PT and OT * Will require placement 03/20 * No change * Case coordination working on placement 03/21 * Department of family services contacted as we are still unsuccessful in getting in touch with the daughter. Patient is unable to make decisions for herself. Case management following. * continue PT and OT 04/06 * no change (4) Moderate protein-calorie malnutrition: Code(s): E44.0 - Moderate protein-calorie malnutrition Status: Chronic Assessment and Plan: * secondary to failure to thrive * added protein shakes to each meal * regular diet * Resumed Megace 03/16 * encourage po intake * No change to current treatment plan 03/17 * No change (5) Adult failure to thrive: Code(s): R62.7 - Adult failure to thrive Status: Acute Assessment and Plan: patient has been worsening for the last year patient's passed around a year ago suffering from depression, bipolar disorder and anxiety * jail placement * see above 3 03/16 * Continue PT and OT * Case management working on placement 03/17 * No change (6) Depression: Code(s): F32.9 - Major depressive disorder, single episode, unspecified Status: Chronic Assessment and Plan: * Resumed home medications BuSpar and Wellbutrin, citalopram 03/16 * No change (7) Anxiety: Code(s): F41.9 - Anxiety disorder, unspecified Status: Chronic Assessment and Plan: * Resumed home medications BuSpar and Wellbutrin 03/16 * No change (8) Bipolar disorder: Code(s): F31.9 - Bipolar disorder, unspecified Status: Chronic Assessment and Plan: * Resumed home medications divalproex 03/16 * No change (9) Hypothyroidism: Code(s): E03.9 - Hypothyroidism, unspecified Status: Chronic Assessment and Plan: * Resumed Levothyroxine 03/16 * Will check TSH level * Continue Synthroid 03/17 * TSH 0.89 (10) Hypotension: Code(s): I95.9 - Hypotension, unspecified Status: Acute Assessment and Plan: * resume patient's midodrine * monitor BP per unit protocol 03/16 * No change Time Spent With Patient Time with patient: less than 15 minutes Subjective Date/time seen: 04/06/24 14:15 Interval history: Interval history: Patient is a 68-year-old female who was sent over to the emergency department by her primary care physician due to increased generalized weakness which has g gui increasingly worse over the last week. Patient is a poor historian some information was gathered via the medical chart as stated from emergency department family has requested patient be placed in long care facility unable to care for self anymore. patient with past medical history of bipolar disorder, CHF, failure to thrive, and depression. initial findings in the emergency department did show a chest x-ray with right lower lobe infiltrate suggestive of pneumonia. Patient with normal WBC, afebrile no respiratory distress. Patient denied CP, SOB, Cough, dizziness, nausea, and vomiting overall states she just did not feel well and has had worsening weakness. upon assessment patient was found to also a systemic rash lower and upper extremities as well as her trunk back as reported from medical chart when she saw her primary patient's daughter reported this began about a month ago with no new medications or changes. patient was admitted to the medical unit for pneum onia, generalized weakness, and failure to thrive. labs were reviewed and unremarkable vital stable. Subjective: Patient denies any new complaints today. labs reviewed Review of Systems Review of Systems: All systems reviewed & are unremarkable except as noted in HPI and below Exam Narrative: General: failure to thrive, very malnourished Cardiac: Normal S1 and S2. No murmur, gallops or friction rubs, peripheral pulses intact. Respiratory: Lungs clear to auscultation, no adventitious lung sounds, currently on room air Gastrointestinal: soft, non-distended, non-tender, normoactive bowel sounds. : voiding without difficulty. Extremities: moves all extremities well, no edema, currently in mittens due to her excessive scratching Skin: rash healing Neuro: Alert and oriented x1 to 2 at best Objective Data Vital Signs Vital Signs: Vital Signs - 24 hr 04/05/24 16:00 04/06/24 00:00 04/06/24 08:00 Temperature 97.8 F 98.1 F 97.6 F Pulse Rate 60 80 84 Respiratory Rate 18 16 15 Blood Pressure 122/62 113/67 129/70 Pulse Oximetry 97 96 97 Oxygen Delivery Room Air Room Air Intake/Output Intake/Output: Intake & Output 04/03/24 04/04/24 04/05/24 04/06/24 23:59 23:59 23:59 23:59 Intake Total 1160 2643 650 800 Balance 1160 2643 650 800 Meds/Results Medications: Active Medications Generic Name Dose Route Start Last Admin Trade Name Freq PRN Reason Stop Dose Admin Acetaminophen 650 mg 03/14/24 20:34 04/03/24 20:58 Acetaminophen 325 Mg Tablet PO 650 mg Q4H PRN Administration Mild Pain (1-3) or Fever Al Hydrox/Mg Hydrox/Simethicone 30 ml 03/14/24 20:34 Mag Hydrox/Al Hydrox/Simeth 30 Ml Udc PO QID PRN Dyspepsia Ascorbic Acid 500 mg 03/15/24 09:00 04/06/24 09:54 Ascorbic Acid 500 Mg Tablet PO 500 mg BID MINH Administration Aspirin 81 mg 03/15/24 09:00 04/06/24 09:54 Aspirin 81 Mg Enteric Tablet PO 81 mg QAM MINH Administration Atorvastatin Calcium 80 mg 03/15/24 09:00 04/06/24 09:54 Atorvastatin 40 Mg Tablet PO 80 mg DAILY MINH Administration Bupropion HCl 150 mg 03/15/24 09:00 04/06/24 09:54 Bupropion Hcl Xl (24 Hr) 150 Mg Tabcr PO 150 mg DAILY MINH Administration Buspirone HCl 15 mg 03/15/24 09:00 04/06/24 09:54 Buspirone Hcl 5 Mg Tablet PO 15 mg TID MINH Administration Clopidogrel Bisulfate 75 mg 03/15/24 09:00 04/06/24 09:55 Clopidogrel Bisulfate 75 Mg Tablet PO 75 mg DAILY MINH Administration Cyanocobalamin 500 mcg 03/15/24 09:00 04/06/24 09:55 Cyanocobalamin 500 Mcg Tablet PO 500 mcg QAM MINH Administration Diphenhydramine HCl 25 mg 03/15/24 10:06 04/02/24 21:28 Diphenhydramine Hcl Cap 25 Mg Capsule PO 25 mg Q6H PRN Administration Itching Divalproex Sodium 500 mg 03/14/24 22:15 04/06/24 09:[address] 250 Mg Tabec PO 500 mg Q12H MINH Administration Enoxaparin Sodium 40 mg 03/16/24 09:00 04/06/24 09:53 Enoxaparin 40 Mg/0.4 Ml Syringe SUB-Q 40 mg DAILY MINH Administration Escitalopram Oxalate 10 mg 03/14/24 21:00 04/05/24 21:41 Escitalopram Oxalate 10 Mg Tablet PO 10 mg HS MINH Administration Folic Acid 1 mg 03/15/24 09:00 04/06/24 09:54 Folic Acid 1 Mg Tablet PO 1 mg DAILY MINH Administration Gabapentin 100 mg 03/14/24 22:00 04/06/24 05:49 Gabapentin 100 Mg Capsule BY MOUTH 100 mg Q8HR MINH Administration Hydrocortisone 1 applic 03/30/24 09:30 04/06/24 10:09 Hydrocortisone 2.5% Cream 30 Gm Tube TOPICAL 1 applic Q12HR MINH Administration Hydroxyzine HCl 25 mg 03/29/24 18:00 04/06/24 05:49 Hydroxyzine Hcl 25 Mg Tablet PO 25 mg Q6HR MINH Administration Levothyroxine Sodium 75 mcg 03/15/24 09:00 04/06/24 05:49 Levothyroxine Sodium 75 Mcg Tablet PO 75 mcg DAILY@0630 MINH Administration Megestrol Acetate 40 mg 03/16/24 13:00 04/06/24 09:54 Megestrol Acetate (*Chemo) 40 Mg Tablet PO 40 mg QID MINH Administration Trazodone HCl 100 mg 03/14/24 22:25 04/05/24 21:40 Trazodone Hcl 50 Mg Tablet PO 100 mg HS PRN Administration Insomnia Radiology Results: ITS Impressions Chest X-Ray 03/23/24 08:35 IMPRESSION: 1. No acute cardiopulmonary disease. Quality VTE Prophylaxis VTE prophylaxis: pharmacologic ordered
[2024-04-06 16:00] VITALS: BP 104/64; PULSE 75; RESP 14; TEMP 36.6; O2SAT 96
[2024-04-06] MEDS: traZODone HCL 50 MG TABLET 100 MG PO (21:56)
[2024-04-06] MEDS: ESCITALOPRAM OXALATE 10 MG TABLET PO (21:56)
[2024-04-07] VITALS: BP 125/50; PULSE 84; RESP 16; TEMP 36.7; O2SAT 95
[2024-04-07] MEDS: hydrOXYzine HCL 25 MG TABLET PO ×4 (05:46→23:01)
[2024-04-07] MEDS: LEVOTHYROXINE SODIUM 75 MCG TABLET PO (05:47)
[2024-04-07] MEDS: GABAPENTIN 100 MG CAPSULE BY MOUTH ×3 (05:47→21:17)
[2024-04-07 08:00] VITALS: BP 114/64; PULSE 60; RESP 15; TEMP 36.6; O2SAT 97
--- NOTE | 2024-04-07 08:41 | P.PNIM_ITS ---
Progress Note: A&P Assessment and Plan (1) Pneumonia: Qualifiers: Laterality: left Lung location: lower lobe of lung Pneumonia type: due to unspecified organism Qualified Code(s): J18.9 - Pneumonia, unspecified organism Code(s): J18.9 - Pneumonia, unspecified organism Status: Resolved Assessment and Plan: CXR left basilar infiltrates suspicious for pneumonia, normal WBC, afebrile, on room air but does have generalized weakness that has worsened over the last week * given Rocephin and azithromycin in the emergency department * transitioned to oral Augmentin * oxygen p.r.n. * incentive spirometer 03/16 * Continue Augmentin and Azithromycin * Continue IS while awake 03/17 * Continue current treatment plan 03/18 * No change RESOLVED 03/23 Repeat chest xray awaiting result WBC have increased to 23 unknown cause no s/s of infection (2) Rash: Code(s): R21 - Rash and other nonspecific skin eruption Status: Acute Assessment and Plan: * systemic rash upper and lower extremities chest and back * treat with prednisone added Benadryl for itching 03/16 * Rash all over body, BUE, BLE and inbetween fingers and toes * Could be a form of eczema, however can not rule out scabies. Left message for daughter to call back. * Continue prednisone * Will order permethrin 5% topical cream x1 now. * Start Atarax for itching * Will isolate for possible scabies 03/17 * Rash showing some improvement with permethrin 5% cream * Continue atarax for itching 03/18 * rash improving but still with mild itch * Stopped prednisone * can continue with cream * Bed bugs vs scabies vs systemic dermatitis 03/20 * No change to current treatment plan 03/23/2024 * Ivermectin given yesterday * Permethrin will be administered today * prn medication * skin looks a lot better 04/06 * skin almost completely healed (3) Generalized weakness: Code(s): R53.1 - Weakness Status: Acute Assessment and Plan: * likely secondary to pneumonia and failure to thrive * PT/OT for evaluation * family requesting SNF 03/16 * Continue PT and OT * Case management following for outpatient rehab needs 03/17 * Continue PT and OT * Will require placement 03/20 * No change * Case coordination working on placement 03/21 * Department of family services contacted as we are still unsuccessful in getting in touch with the daughter. Patient is unable to make decisions for herself. Case management following. * continue PT and OT 04/06 * no change (4) Moderate protein-calorie malnutrition: Code(s): E44.0 - Moderate protein-calorie malnutrition Status: Chronic Assessment and Plan: * secondary to failure to thrive * added protein shakes to each meal * regular diet * Resumed Megace 03/16 * encourage po intake * No change to current treatment plan 03/17 * No change (5) Adult failure to thrive: Code(s): R62.7 - Adult failure to thrive Status: Acute Assessment and Plan: patient has been worsening for the last year patient's passed around a year ago suffering from depression, bipolar disorder and anxiety * [facility] placement * see above 3 03/16 * Continue PT and OT * Case management working on placement 03/17 * No change (6) Depression: Code(s): F32.9 - Major depressive disorder, single episode, unspecified Status: Chronic Assessment and Plan: * Resumed home medications BuSpar and Wellbutrin, citalopram 03/16 * No change (7) Anxiety: Code(s): F41.9 - Anxiety disorder, unspecified Status: Chronic Assessment and Plan: * Resumed home medications BuSpar and Wellbutrin 03/16 * No change (8) Bipolar disorder: Code(s): F31.9 - Bipolar disorder, unspecified Status: Chronic Assessment and Plan: * Resumed home medications divalproex 03/16 * No change (9) Hypothyroidism: Code(s): E03.9 - Hypothyroidism, unspecified Status: Chronic Assessment and Plan: * Resumed Levothyroxine 03/16 * Will check TSH level * Continue Synthroid 03/17 * TSH 0.89 (10) Hypotension: Code(s): I95.9 - Hypotension, unspecified Status: Acute Assessment and Plan: * resume patient's midodrine * monitor BP per unit protocol 03/16 * No change Subjective Date/time seen: 04/07/24 08:41 Interval history: Interval history: Patient is a 68-year-old female who was sent over to the emergency department by her primary care physician due to increased generalized weakness which has gotten increasingly worse over the last week. Patient is a poor historian some information was gathered via the medical chart as stated from emergency department family has requested patient be placed in long care facility unable to care for self anymore. patient with past medical history of bipolar disorder, CHF, failure to thrive, and depression. initial findings in the emergency department did show a chest x-ray with right lower lobe infiltrate suggestive of pneumonia. Patient with normal WBC, afebrile no respiratory distress. Patient denied CP, SOB, Cough, dizziness, nausea, and vomiting overall states she just did not feel well and has had worsening weakness. upon assessment patient was found to also a systemic rash lower and upper extremities as well as her trunk back as reported from medical chart when she saw her primary patient's daughter reported this began about a month ago with no new medications or changes. patient was admitted to the medical unit for pneumonia, generalized weakness, and failure to thrive. labs were reviewed and unremarkable vital stable. Subjective: Patient denies any new complaints today. Awaiting placement Review of Systems Review of Systems: All systems reviewed & are unremarkable except as noted in HPI and below Exam Narrative: General: failure to thrive, very malnourished Cardiac: Normal S1 and S2. No murmur, gallops or friction rubs, peripheral pulses intact. Respiratory: Lungs clear to auscultation, no adventitious lung sounds, currently on room air Gastrointestinal: soft, non-distended, non-tender, normoactive bowel sounds. : voiding without difficulty. Extremities: moves all extremities well, no edema, currently in mittens due to her excessive scratching Skin: rash healing Neuro: Alert and oriented x1 to 2 at best Objective Data Vital Signs Vital Signs: Vital Signs - 24 hr 04/06/24 16:00 04/07/24 00:00 Temperature 98 F 98.1 F Pulse Rate 75 84 Respiratory Rate 14 16 Blood Pressure 104/64 125/50 L Pulse Oximetry 96 95 Oxygen Delivery Room Air Room Air Intake/Output Intake/Output: Intake & Output 04/04/24 04/05/24 04/06/24 04/07/24 23:59 23:59 23:59 23:59 Intake Total 2643 650 1250 150 Balance 2643 650 1250 150 Meds/Results Medications: Active Medications Generic Name Dose Route Start Last Admin Trade Name Freq PRN Reason Stop Dose Admin Acetaminophen 650 mg 03/14/24 20:34 04/03/24 20:58 Acetaminophen 325 Mg Tablet PO 650 mg Q4H PRN Administration Mild Pain (1-3) or Fever Al Hydrox/Mg Hydrox/Simethicone 30 ml 03/14/24 20:34 Mag Hydrox/Al Hydrox/Simeth 30 Ml Udc PO QID PRN Dyspepsia Ascorbic Acid 500 mg 03/15/24 09:00 04/06/24 18:26 Ascorbic Acid 500 Mg Tablet PO 500 mg BID MINH Administration Aspirin 81 mg 03/15/24 09:00 04/06/24 09:54 Aspirin 81 Mg Enteric Tablet PO 81 mg QAM MINH Administration Atorvastatin Calcium 80 mg 03/15/24 09:00 04/06/24 09:54 Atorvastatin 40 Mg Tablet PO 80 mg DAILY MINH Administration Bupropion HCl 150 mg 03/15/24 09:00 04/06/24 09:54 Bupropion Hcl Xl (24 Hr) 150 Mg Tabcr PO 150 mg DAILY MINH Administration Buspirone HCl 15 mg 03/15/24 09:00 04/06/24 18:26 Buspirone Hcl 5 Mg Tablet PO 15 mg TID MINH Administration Clopidogrel Bisulfate 75 mg 03/15/24 09:00 04/06/24 09:55 Clopidogrel Bisulfate 75 Mg Tablet PO 75 mg DAILY MINH Administration Cyanocobalamin 500 mcg 03/15/24 09:00 04/06/24 09:55 Cyanocobalamin 500 Mcg Tablet PO 500 mcg QAM MINH Administration Diphenhydramine HCl 25 mg 03/15/24 10:06 04/02/24 21:28 Diphenhydramine Hcl Cap 25 Mg Capsule PO 25 mg Q6H PRN Administration Itching Divalproex Sodium 500 mg 03/14/24 22:15 04/06/24 21:[address] 250 Mg Tabec PO 500 mg Q12H MINH Administration Enoxaparin Sodium 40 mg 03/16/24 09:00 04/06/24 09:53 Enoxaparin 40 Mg/0.4 Ml Syringe SUB-Q 40 mg DAILY MINH Administration Escitalopram Oxalate 10 mg 03/14/24 21:00 04/06/24 21:56 Escitalopram Oxalate 10 Mg Tablet PO 10 mg HS MINH Administration Folic Acid 1 mg 03/15/24 09:00 04/06/24 09:54 Folic Acid 1 Mg Tablet PO 1 mg DAILY MINH Administration Gabapentin 100 mg 03/14/24 22:00 04/07/24 05:47 Gabapentin 100 Mg Capsule BY MOUTH 100 mg Q8HR MINH Administration Hydrocortisone 1 applic 03/30/24 09:30 04/06/24 21:56 Hydrocortisone 2.5% Cream 30 Gm Tube TOPICAL 1 applic Q12HR MINH Administration Hydroxyzine HCl 25 mg 03/29/24 18:00 04/07/24 05:46 Hydroxyzine Hcl 25 Mg Tablet PO 25 mg Q6HR MINH Administration Levothyroxine Sodium 75 mcg 03/15/24 09:00 04/07/24 05:47 Levothyroxine Sodium 75 Mcg Tablet PO 75 mcg DAILY@0630 MINH Administration Megestrol Acetate 40 mg 03/16/24 13:00 04/06/24 21:56 Megestrol Acetate (*Chemo) 40 Mg Tablet PO 40 mg QID MINH Administration Trazodone HCl 100 mg 03/14/24 22:25 04/06/24 21:56 Trazodone Hcl 50 Mg Tablet PO 100 mg HS PRN Administration Insomnia Radiology Results: ITS Impressions Chest X-Ray 03/23/24 08:35 IMPRESSION: 1. No acute cardiopulmonary disease. Quality VTE Prophylaxis VTE prophylaxis: pharmacologic ordered
--- NOTE | 2024-04-07 08:41 | PM.IMPN ---
Progress Note: A&P Assessment and Plan (1) Pneumonia: Qualifiers: Laterality: left Lung location: lower lobe of lung Pneumonia type: due to unspecified organism Qualified Code(s): J18.9 - Pneumonia, unspecified organism Code(s): J18.9 - Pneumonia, unspecified organism Status: Resolved Assessment and Plan: CXR left basilar infiltrates suspicious for pneumonia, normal WBC, afebrile, on room air but does have generalized weakness that has worsened over the last week given Rocephin and azithromycin in the emergency department transitioned to oral Augmentin oxygen p.r.n. incentive spirometer 03/16 Continue Augmentin and Azithromycin Continue IS while awake 03/17 Continue current treatment plan 03/18 No change RESOLVED 03/23 Repeat chest xray awaiting result WBC have increased to 23 unknown cause no s/s of infection (2) Rash: Code(s): R21 - Rash and other nonspecific skin eruption Status: Acute Assessment and Plan: systemic rash upper and lower extremities chest and back treat with prednisone added Benadryl for itching 03/16 Rash all over body, BUE, BLE and inbetween fingers and toes Could be a form of eczema, however can not rule out scabies. Left message for daughter to call back. Continue prednisone Will order permethrin 5% topical cream x1 now. Start Atarax for itching Will isolate for possible scabies 03/17 Rash showing some improvement with permethrin 5% cream Continue atarax for itching 03/18 rash improving but still with mild itch Stopped prednisone can continue with cream Bed bugs vs scabies vs systemic dermatitis 03/20 No change to current treatment plan 03/23/2024 Ivermectin given yesterday Permethrin will be administered today prn medication skin looks a lot better 04/06 skin almost completely healed (3) Generalized weakness: Code(s): R53.1 - Weakness Status: Acute Assessment and Plan: likely secondary to pneumonia and failure to thrive PT/OT for evaluation family requesting SNF 03/16 Continue PT and OT Case management following for outpatient rehab needs 03/17 Continue PT and OT Will require placement 03/20 No change Case coordination working on placement 03/21 Department of family services contacted as we are still unsuccessful in getting in touch with the daughter. Patient is unable to make decisions for herself. Case management following. continue PT and OT 04/06 no change (4) Moderate protein-calorie malnutrition: Code(s): E44.0 - Moderate protein-calorie malnutrition Status: Chronic Assessment and Plan: secondary to failure to thrive added protein shakes to each meal regular diet Resumed Megace 03/16 encourage po intake No change to current treatment plan 03/17 No change (5) Adult failure to thrive: Code(s): R62.7 - Adult failure to thrive Status: Acute Assessment and Plan: patient has been worsening for the last year patient's passed around a year ago suffering from depression, bipolar disorder and anxiety [facility] placement see above 3 03/16 Continue PT and OT Case management working on placement 03/17 No change (6) Depression: Code(s): F32.9 - Major depressive disorder, single episode, unspecified Status: Chronic Assessment and Plan: Resumed home medications BuSpar and Wellbutrin, citalopram 03/16 No change (7) Anxiety: Code(s): F41.9 - Anxiety disorder, unspecified Status: Chronic Assessment and Plan: Resumed home medications BuSpar and Wellbutrin 03/16 No change (8) Bipolar disorder: Code(s): F31.9 - Bipolar disorder, unspecified Status: Chronic Assessment and Plan: Resumed home medications divalproex 03/16 No change (9) Hypothyroidism: Code(s): E03.9 - Hypothyroidism, unspecified Status: Chronic Assessment and Plan: Resumed Levothyroxine 03/16 Will check TSH level Continue Synthroid 03/17 TSH 0.89 (10) Hypotension: Code(s): I95.9 - Hypotension, unspecified Status: Acute Assessment and Plan: resume patient's midodrine monitor BP per unit protocol 03/16 No change Subjective Date/time seen: 04/07/24 08:41 Interval history: Interval history: Patient is a 68-year-old female who was sent over to the emergency department by her primary care physician due to increased generalized weakness which has gotten increasingly worse over the last week. Patient is a poor historian some information was gathered via the medical chart as stated from emergency department family has requested patient be placed in long care facility unable to care for self anymore. patient with past medical history of bipolar disorder, CHF, failure to thrive, and depression. initial findings in the emergency department did show a chest x-ray with right lower lobe infiltrate suggestive of pneumonia. Patient with normal WBC, afebrile no respiratory distress. Patient denied CP, SOB, Cough, dizziness, nausea, and vomiting overall states she just did not feel well and has had worsening weakness. upon assessment patient was found to also a systemic rash lower and upper extremities as well as her trunk back as reported from medical chart when she saw her primary patient's daughter reported this began about a month ago with no new medications or changes. patient was admitted to the medical unit for pneumonia, generalized weakness, and failure to thrive. labs were reviewed and unremarkable vital stable. Subjective: Patient denies any new complaints today. Awaiting placement Review of Systems Review of Systems: All systems reviewed & are unremarkable except as noted in HPI and below Exam Narrative: General: failure to thrive, very malnourished Cardiac: Normal S1 and S2. No murmur, gallops or friction rubs, peripheral pulses intact. Respiratory: Lungs clear to auscultation, no adventitious lung sounds, currently on room air Gastrointestinal: soft, non-distended, non-tender, normoactive bowel sounds. : voiding without difficulty. Extremities: moves all extremities well, no edema, currently in mittens due to her excessive scratching Skin: rash healing Neuro: Alert and oriented x1 to 2 at best Objective Data Vital Signs Vital Signs: Vital Signs - 24 hr 04/06/24 16:00 04/07/24 00:00 Temperature 98 F 98.1 F Pulse Rate 75 84 Respiratory Rate 14 16 Blood Pressure 104/64 125/50 L Pulse Oximetry 96 95 Oxygen Delivery Room Air Room Air Intake/Output Intake/Output: Intake & Output 04/04/24 04/05/24 04/06/24 04/07/24 23:59 23:59 23:59 23:59 Intake Total 2643 650 1250 150 Balance 2643 650 1250 150 Meds/Results Medications: Active Medications Generic Name Dose Route Start Last Admin Trade Name Freq PRN Reason Stop Dose Admin Acetaminophen 650 mg 03/14/24 20:34 04/03/24 20:58 Acetaminophen 325 Mg Tablet PO 650 mg Q4H PRN Administration Mild Pain (1-3) or Fever Al Hydrox/Mg Hydrox/Simethicone 30 ml 03/14/24 20:34 Mag Hydrox/Al Hydrox/Simeth 30 Ml Udc PO QID PRN Dyspepsia Ascorbic Acid 500 mg 03/15/24 09:00 04/06/24 18:26 Ascorbic Acid 500 Mg Tablet PO 500 mg BID MINH Administration Aspirin 81 mg 03/15/24 09:00 04/06/24 09:54 Aspirin 81 Mg Enteric Tablet PO 81 mg QAM [facility] Administration Atorvastatin Calcium 80 mg 03/15/24 09:00 04/06/24 09:54 Atorvastatin 40 Mg Tablet PO 80 mg DAILY MINH Administration Bupropion HCl 150 mg 03/15/24 09:00 04/06/24 09:54 Bupropion Hcl Xl (24 Hr) 150 Mg Tabcr PO 150 mg DAILY [facility] Administration Buspirone HCl 15 mg 03/15/24 09:00 04/06/24 18:26 Buspirone Hcl 5 Mg Tablet PO 15 mg TID [facility] Administration Clopidogrel Bisulfate 75 mg 03/15/24 09:00 04/06/24 09:55 Clopidogrel Bisulfate 75 Mg Tablet PO 75 mg DAILY [facility] Administration Cyanocobalamin 500 mcg 03/15/24 09:00 04/06/24 09:55 Cyanocobalamin 500 Mcg Tablet PO 500 mcg QAM [facility] Administration Diphenhydramine HCl 25 mg 03/15/24 10:06 04/02/24 21:28 Diphenhydramine Hcl Cap 25 Mg Capsule PO 25 mg Q6H PRN Administration Itching Divalproex Sodium 500 mg 03/14/24 22:15 04/06/24 21:[address] 250 Mg Tabec PO 500 mg Q12H MINH Administration Enoxaparin Sodium 40 mg 03/16/24 09:00 04/06/24 09:53 Enoxaparin 40 Mg/0.4 Ml Syringe SUB-Q 40 mg DAILY [facility] Administration Escitalopram Oxalate 10 mg 03/14/24 21:00 04/06/24 21:56 Escitalopram Oxalate 10 Mg Tablet PO 10 mg HS [facility] Administration Folic Acid 1 mg 03/15/24 09:00 04/06/24 09:54 Folic Acid 1 Mg Tablet PO 1 mg DAILY [facility] Administration Gabapentin 100 mg 03/14/24 22:00 04/07/24 05:47 Gabapentin 100 Mg Capsule BY MOUTH 100 mg Q8HR MINH Administration Hydrocortisone 1 applic 03/30/24 09:30 04/06/24 21:56 Hydrocortisone 2.5% Cream 30 Gm Tube TOPICAL 1 applic Q12HR MINH Administration Hydroxyzine HCl 25 mg 03/29/24 18:00 04/07/24 05:46 Hydroxyzine Hcl 25 Mg Tablet PO 25 mg Q6HR MINH Administration Levothyroxine Sodium 75 mcg 03/15/24 09:00 04/07/24 05:47 Levothyroxine Sodium 75 Mcg Tablet PO 75 mcg DAILY@0630 [facility] Administration Megestrol Acetate 40 mg 03/16/24 13:00 04/06/24 21:56 Megestrol Acetate (*Chemo) 40 Mg Tablet PO 40 mg QID MINH Administration Trazodone HCl 100 mg 03/14/24 22:25 04/06/24 21:56 Trazodone Hcl 50 Mg Tablet PO 100 mg HS PRN Administration Insomnia Radiology Results: ITS Impressions Chest X-Ray 03/23/24 08:35 IMPRESSION: 1. No acute cardiopulmonary disease. Quality VTE Prophylaxis VTE prophylaxis: pharmacologic ordered
[2024-04-07] MEDS: ASPIRIN 81 MG ENTERIC TABLET PO (09:20)
[2024-04-07] MEDS: ENOXAPARIN 40 MG/0.4 ML SYRINGE SUB-Q (09:20)
[2024-04-07] MEDS: FOLIC ACID 1 MG TABLET PO (09:20)
[2024-04-07] MEDS: MEGESTROL ACETATE (*CHEMO) 40 MG TABLET PO ×4 (09:20→21:17)
[2024-04-07] MEDS: CLOPIDOGREL BISULFATE 75 MG TABLET PO (09:20)
[2024-04-07] MEDS: HYDROCORTISONE 2.5% CREAM 30 GM TUBE 1 APPLIC TOPICAL ×2 (09:20→21:17)
[2024-04-07] MEDS: ASCORBIC ACID 500 MG TABLET PO ×2 (09:20→17:17)
[2024-04-07] MEDS: buPROPion HCL XL (24 HR) 150 MG TABCR PO (09:21)
[2024-04-07] MEDS: ATORVASTATIN 40 MG TABLET 80 MG PO (09:21)
[2024-04-07] MEDS: CYANOCOBALAMIN 500 MCG TABLET PO (09:21)
[2024-04-07] MEDS: busPIRone HCL 5 MG TABLET 15 MG PO ×3 (09:21→17:17)
[2024-04-07] MEDS: DIVALPROEX SODIUM DR 250 MG TABEC 500 MG PO ×2 (09:26→21:16)
[2024-04-07 16:00] VITALS: BP 100/49; PULSE 89; RESP 16; TEMP 36.1; O2SAT 96
[2024-04-07] MEDS: ESCITALOPRAM OXALATE 10 MG TABLET PO (21:16)
[2024-04-07] MEDS: traZODone HCL 50 MG TABLET 100 MG PO (21:16)
[2024-04-07 23:06] VITALS: BP 140/56; PULSE 86; RESP 17; TEMP 36.3; O2SAT 93
--- NOTE | 2024-04-08 00:10 | PC.NURSE ---
Pt resting in bed and watching TV. Mitts are off at this time.
--- NOTE | 2024-04-08 02:15 | PC.NURSE ---
Pt asleep and no signs of scratching or discomfort noted.
--- NOTE | 2024-04-08 04:10 | PC.NURSE ---
Pt asleep and no signs of discomfort noted.
--- NOTE | 2024-04-08 06:10 | PC.NURSE ---
Pt incontinent of a large amount of urine and soft, brown stool. Pt cleaned, changed and repositioned.
[2024-04-08 07:31] VITALS: BP 100/56; PULSE 84; RESP 18; TEMP 36.5; O2SAT 98
[2024-04-08] MEDS: LEVOTHYROXINE SODIUM 75 MCG TABLET PO (07:41)
[2024-04-08] MEDS: GABAPENTIN 100 MG CAPSULE BY MOUTH ×3 (07:41→21:36)
[2024-04-08] MEDS: hydrOXYzine HCL 25 MG TABLET PO ×4 (07:41→23:21)
[2024-04-08 08:00] VITALS: PULSE 82; RESP 18; O2SAT 98
[2024-04-08] MEDS: ATORVASTATIN 40 MG TABLET 80 MG PO (08:50)
[2024-04-08] MEDS: busPIRone HCL 5 MG TABLET 15 MG PO ×3 (08:51→17:23)
[2024-04-08] MEDS: buPROPion HCL XL (24 HR) 150 MG TABCR PO (08:52)
[2024-04-08] MEDS: ASPIRIN 81 MG ENTERIC TABLET PO (08:52)
[2024-04-08] MEDS: CLOPIDOGREL BISULFATE 75 MG TABLET PO (08:52)
[2024-04-08] MEDS: FOLIC ACID 1 MG TABLET PO (08:52)
[2024-04-08] MEDS: MEGESTROL ACETATE (*CHEMO) 40 MG TABLET PO ×4 (08:52→21:36)
[2024-04-08] MEDS: HYDROCORTISONE 2.5% CREAM 30 GM TUBE 1 APPLIC TOPICAL ×2 (08:53→21:37)
[2024-04-08] MEDS: CYANOCOBALAMIN 500 MCG TABLET PO (08:53)
[2024-04-08] MEDS: ASCORBIC ACID 500 MG TABLET PO ×2 (08:53→17:23)
[2024-04-08] MEDS: ENOXAPARIN 40 MG/0.4 ML SYRINGE SUB-Q (08:53)
[2024-04-08] MEDS: DIVALPROEX SODIUM DR 250 MG TABEC 500 MG PO ×2 (10:15→21:36)
--- NOTE | 2024-04-08 10:23 | P.PNIM_ITS ---
Progress Note: A&P Assessment and Plan (1) Pneumonia: Qualifiers: Laterality: left Lung location: lower lobe of lung Pneumonia type: due to unspecified organism Qualified Code(s): J18.9 - Pneumonia, unspecified organism Code(s): J18.9 - Pneumonia, unspecified organism Status: Resolved Assessment and Plan: CXR left basilar infiltrates suspicious for pneumonia, normal WBC, afebrile, on room air but does have generalized weakness that has worsened over the last week * given Rocephin and azithromycin in the emergency department * transitioned to oral Augmentin * oxygen p.r.n. * incentive spirometer 03/16 * Continue Augmentin and Azithromycin * Continue IS while awake 03/17 * Continue current treatment plan 03/18 * No change RESOLVED 03/23 Repeat chest xray awaiting result WBC have increased to 23 unknown cause no s/s of infection (2) Rash: Code(s): R21 - Rash and other nonspecific skin eruption Status: Acute Assessment and Plan: * systemic rash upper and lower extremities chest and back * treat with prednisone added Benadryl for itching 03/16 * Rash all over body, BUE, BLE and inbetween fingers and toes * Could be a form of eczema, however can not rule out scabies. Left message for daughter to call back. * Continue prednisone * Will order permethrin 5% topical cream x1 now. * Start Atarax for itching * Will isolate for possible scabies 03/17 * Rash showing some improvement with permethrin 5% cream * Continue atarax for itching 03/18 * rash improving but still with mild itch * Stopped prednisone * can continue with cream * Bed bugs vs scabies vs systemic dermatitis 03/20 * No change to current treatment plan 03/23/2024 * Ivermectin given yesterday * Permethrin will be administered today * prn medication * skin looks a lot better 04/06 * skin almost completely healed (3) Generalized weakness: Code(s): R53.1 - Weakness Status: Acute Assessment and Plan: * likely secondary to pneumonia and failure to thrive * PT/OT for evaluation * family requesting SNF 03/16 * Continue PT and OT * Case management following for outpatient rehab needs 03/17 * Continue PT and OT * Will require placement 03/20 * No change * Case coordination working on placement 03/21 * Department of family services contacted as we are still unsuccessful in getting in touch with the daughter. Patient is unable to make decisions for herself. Case management following. * continue PT and OT 04/06 * no change (4) Moderate protein-calorie malnutrition: Code(s): E44.0 - Moderate protein-calorie malnutrition Status: Chronic Assessment and Plan: * secondary to failure to thrive * added protein shakes to each meal * regular diet * Resumed Megace 03/16 * encourage po intake * No change to current treatment plan 03/17 * No change (5) Adult failure to thrive: Code(s): R62.7 - Adult failure to thrive Status: Acute Assessment and Plan: patient has been worsening for the last year patient's passed around a year ago suffering from depression, bipolar disorder and anxiety * senior care placement * see above 3 03/16 * Continue PT and OT * Case management working on placement 03/17 * No change (6) Depression: Code(s): F32.9 - Major depressive disorder, single episode, unspecified Status: Chronic Assessment and Plan: * Resumed home medications BuSpar and Wellbutrin, citalopram 03/16 * No change (7) Anxiety: Code(s): F41.9 - Anxiety disorder, unspecified Status: Chronic Assessment and Plan: * Resumed home medications BuSpar and Wellbutrin 03/16 * No change (8) Bipolar disorder: Code(s): F31.9 - Bipolar disorder, unspecified Status: Chronic Assessment and Plan: * Resumed home medications divalproex 03/16 * No change (9) Hypothyroidism: Code(s): E03.9 - Hypothyroidism, unspecified Status: Chronic Assessment and Plan: * Resumed Levothyroxine 03/16 * Will check TSH level * Continue Synthroid 03/17 * TSH 0.89 (10) Hypotension: Code(s): I95.9 - Hypotension, unspecified Status: Acute Assessment and Plan: * resume patient's midodrine * monitor BP per unit protocol 03/16 * No change Subjective Date/time seen: 04/08/24 10:23 Interval history: Interval history: Patient is a 68-year-old female who was sent over to the emergency department by her primary care physician due to increased generalized weakness which has gotten increasingly worse over the last week. Patient is a poor historian some information was gathered via the medical chart as stated from emergency department family has requested patient be placed in long care facility unable to care for self anymore. patient with past medical history of bipolar disorder, CHF, failure to thrive, and depression. initial findings in the emergency department did show a chest x-ray with right lower lobe infiltrate suggestive of pneumonia. Patient with normal WBC, afebrile no respiratory distress. Patient denied CP, SOB, Cough, dizziness, nausea, and vomiting overall states she just did not feel well and has had worsening weakness. upon assessment patient was found to also a systemic rash lower and upper extremities as well as her trunk back as reported from medical chart when she saw her primary patient's daughter reported this began about a month ago with no new medications or changes. patient was admitted to the medical unit for pneumonia, generalized weakness, and failure to thrive. labs were reviewed and unremarkable vital stable. Subjective: Patient denies any new complaints today. Awaiting placement. Review of Systems Review of Systems: All systems reviewed & are unremarkable except as noted in HPI and below Exam Narrative: General: failure to thrive, very malnourished Cardiac: Normal S1 and S2. No murmur, gallops or friction rubs, peripheral pulses intact. Respiratory: Lungs clear to auscultation, no adventitious lung sounds, currently on room air Gastrointestinal: soft, non-distended, non-tender, normoactive bowel sounds. : voiding without difficulty. Extremities: moves all extremities well, no edema, currently in mittens due to her excessive scratching Skin: rash healing Neuro: Alert and oriented x1 to 2 at best Objective Data Vital Signs Vital Signs: Vital Signs - 24 hr 04/07/24 16:00 04/07/24 23:06 04/08/24 07:31 Temperature 96.9 F L 97.3 F L 97.7 F Pulse Rate 89 86 84 Respiratory Rate 16 17 18 Blood Pressure 100/49 L 140/56 L 100/56 L Pulse Oximetry 96 93 98 Oxygen Delivery Room Air Room Air Room Air Intake/Output Intake/Output: Intake & Output 04/05/24 04/06/24 04/07/24 04/08/24 23:59 23:59 23:59 23:59 Intake Total 650 1250 1400 360 Balance 650 1250 1400 360 Meds/Results Medications: Active Medications Generic Name Dose Route Start Last Admin Trade Name Freq PRN Reason Stop Dose Admin Acetaminophen 650 mg 03/14/24 20:34 04/03/24 20:58 Acetaminophen 325 Mg Tablet PO 650 mg Q4H PRN Administration Mild Pain (1-3) or Fever Al Hydrox/Mg Hydrox/Simethicone 30 ml 03/14/24 20:34 Mag Hydrox/Al Hydrox/Simeth 30 Ml Udc PO QID PRN Dyspepsia Ascorbic Acid 500 mg 03/15/24 09:00 04/08/24 08:53 Ascorbic Acid 500 Mg Tablet PO 500 mg BID MINH Administration Aspirin 81 mg 03/15/24 09:00 04/08/24 08:52 Aspirin 81 Mg Enteric Tablet PO 81 mg QAM MINH Administration Atorvastatin Calcium 80 mg 03/15/24 09:00 04/08/24 08:50 Atorvastatin 40 Mg Tablet PO 80 mg DAILY MINH Administration Bupropion HCl 150 mg 03/15/24 09:00 04/08/24 08:52 Bupropion Hcl Xl (24 Hr) 150 Mg Tabcr PO 150 mg DAILY MINH Administration Buspirone HCl 15 mg 03/15/24 09:00 04/08/24 08:51 Buspirone Hcl 5 Mg Tablet PO 15 mg TID MINH Administration Clopidogrel Bisulfate 75 mg 03/15/24 09:00 04/08/24 08:52 Clopidogrel Bisulfate 75 Mg Tablet PO 75 mg DAILY MINH Administration Cyanocobalamin 500 mcg 03/15/24 09:00 04/08/24 08:53 Cyanocobalamin 500 Mcg Tablet PO 500 mcg QAM MINH Administration Diphenhydramine HCl 25 mg 03/15/24 10:06 04/02/24 21:28 Diphenhydramine Hcl Cap 25 Mg Capsule PO 25 mg Q6H PRN Administration Itching Divalproex Sodium 500 mg 03/14/24 22:15 04/08/24 10:[address] 250 Mg Tabec PO 500 mg Q12H MINH Administration Enoxaparin Sodium 40 mg 03/16/24 09:00 04/08/24 08:53 Enoxaparin 40 Mg/0.4 Ml Syringe SUB-Q 40 mg DAILY MINH Administration Escitalopram Oxalate 10 mg 03/14/24 21:00 04/07/24 21:16 Escitalopram Oxalate 10 Mg Tablet PO 10 mg HS MINH Administration Folic Acid 1 mg 03/15/24 09:00 04/08/24 08:52 Folic Acid 1 Mg Tablet PO 1 mg DAILY MINH Administration Gabapentin 100 mg 03/14/24 22:00 04/08/24 07:41 Gabapentin 100 Mg Capsule BY MOUTH 100 mg Q8HR MINH Administration Hydrocortisone 1 applic 03/30/24 09:30 04/08/24 08:53 Hydrocortisone 2.5% Cream 30 Gm Tube TOPICAL 1 applic Q12HR MINH Administration Hydroxyzine HCl 25 mg 03/29/24 18:00 04/08/24 07:41 Hydroxyzine Hcl 25 Mg Tablet PO 25 mg Q6HR MINH Administration Levothyroxine Sodium 75 mcg 03/15/24 09:00 04/08/24 07:41 Levothyroxine Sodium 75 Mcg Tablet PO 75 mcg DAILY@0630 MINH Administration Megestrol Acetate 40 mg 03/16/24 13:00 04/08/24 08:52 Megestrol Acetate (*Chemo) 40 Mg Tablet PO 40 mg QID MINH Administration Trazodone HCl 100 mg 03/14/24 22:25 04/07/24 21:16 Trazodone Hcl 50 Mg Tablet PO 100 mg HS PRN Administration Insomnia Radiology Results: ITS Impressions Chest X-Ray 03/23/24 08:35 IMPRESSION: 1. No acute cardiopulmonary disease. Quality VTE Prophylaxis VTE prophylaxis: pharmacologic ordered
[2024-04-08 16:00] VITALS: BP 130/60; PULSE 90; RESP 18; TEMP 36.1; O2SAT 96
[2024-04-08] MEDS: ESCITALOPRAM OXALATE 10 MG TABLET PO (21:36)
[2024-04-08] MEDS: traZODone HCL 50 MG TABLET 100 MG PO (21:39)
--- NOTE | 2024-04-08 22:00 | PC.NURSE ---
Patient's mitts removed while sleeping due to patient not scratching in her sleep. Will reapply in am.
--- NOTE | 2024-04-08 23:00 | PC.NURSE ---
Patient's mitts remain off while patient sleeping.
[2024-04-09] VITALS: BP 121/54; PULSE 88; RESP 16; TEMP 36.7; O2SAT 96
--- NOTE | 2024-04-09 | PC.NURSE ---
Patient's mitts remain off while patient is sleeping.
--- NOTE | 2024-04-09 01:00 | PC.NURSE ---
Mitts remain off while patient is sleeping.
--- NOTE | 2024-04-09 02:00 | PC.NURSE ---
Mitts remain off while patient is sleeping.
--- NOTE | 2024-04-09 03:00 | PC.NURSE ---
Mitts remain off while patient is sleeping.
--- NOTE | 2024-04-09 04:00 | PC.NURSE ---
Mitts remain off while patient is sleeping.
--- NOTE | 2024-04-09 05:00 | PC.NURSE ---
Mitts remain off while patient is sleeping.
[2024-04-09] MEDS: hydrOXYzine HCL 25 MG TABLET PO ×4 (05:44→23:27)
[2024-04-09] MEDS: LEVOTHYROXINE SODIUM 75 MCG TABLET PO (05:44)
[2024-04-09] MEDS: GABAPENTIN 100 MG CAPSULE BY MOUTH ×3 (05:44→21:10)
--- NOTE | 2024-04-09 06:00 | PC.NURSE ---
Bilateral mitts reapplied. Patient awake and scratching herself again.
[2024-04-09 08:00] VITALS: BP 115/73; PULSE 92; RESP 16; TEMP 36; O2SAT 100
[2024-04-09] MEDS: ENOXAPARIN 40 MG/0.4 ML SYRINGE SUB-Q (08:54)
[2024-04-09] MEDS: FOLIC ACID 1 MG TABLET PO (08:56)
[2024-04-09] MEDS: busPIRone HCL 5 MG TABLET 15 MG PO ×3 (08:56→17:25)
[2024-04-09] MEDS: CYANOCOBALAMIN 500 MCG TABLET PO (08:56)
[2024-04-09] MEDS: ASPIRIN 81 MG ENTERIC TABLET PO (08:57)
[2024-04-09] MEDS: ASCORBIC ACID 500 MG TABLET PO ×2 (08:57→17:26)
[2024-04-09] MEDS: MEGESTROL ACETATE (*CHEMO) 40 MG TABLET PO ×4 (08:57→20:55)
[2024-04-09] MEDS: HYDROCORTISONE 2.5% CREAM 30 GM TUBE 1 APPLIC TOPICAL ×2 (08:57→20:55)
[2024-04-09] MEDS: buPROPion HCL XL (24 HR) 150 MG TABCR PO (08:57)
[2024-04-09] MEDS: CLOPIDOGREL BISULFATE 75 MG TABLET PO (08:58)
[2024-04-09] MEDS: ATORVASTATIN 40 MG TABLET 80 MG PO (08:59)
--- NOTE | 2024-04-09 09:04 | P.PNIM_ITS ---
Progress Note: A&P Assessment and Plan (1) Pneumonia: Qualifiers: Laterality: left Lung location: lower lobe of lung Pneumonia type: due to unspecified organism Qualified Code(s): J18.9 - Pneumonia, unspecified organism Code(s): J18.9 - Pneumonia, unspecified organism Status: Resolved Assessment and Plan: CXR left basilar infiltrates suspicious for pneumonia, normal WBC, afebrile, on room air but does have generalized weakness that has worsened over the last week * given Rocephin and azithromycin in the emergency department * transitioned to oral Augmentin * oxygen p.r.n. * incentive spirometer 03/16 * Continue Augmentin and Azithromycin * Continue IS while awake 03/17 * Continue current treatment plan 03/18 * No change RESOLVED 03/23 Repeat chest xray awaiting result WBC have increased to 23 unknown cause no s/s of infection (2) Rash: Code(s): R21 - Rash and other nonspecific skin eruption Status: Acute Assessment and Plan: * systemic rash upper and lower extremities chest and back * treat with prednisone added Benadryl for itching 03/16 * Rash all over body, BUE, BLE and inbetween fingers and toes * Could be a form of eczema, however can not rule out scabies. Left message for daughter to call back. * Continue prednisone * Will order permethrin 5% topical cream x1 now. * Start Atarax for itching * Will isolate for possible scabies 03/17 * Rash showing some improvement with permethrin 5% cream * Continue atarax for itching 03/18 * rash improving but still with mild itch * Stopped prednisone * can continue with cream * Bed bugs vs scabies vs systemic dermatitis 03/20 * No change to current treatment plan 03/23/2024 * Ivermectin given yesterday * Permethrin will be administered today * prn medication * skin looks a lot better 04/06 * skin almost completely healed (3) Generalized weakness: Code(s): R53.1 - Weakness Status: Acute Assessment and Plan: * likely secondary to pneumonia and failure to thrive * PT/OT for evaluation * family requesting SNF 03/16 * Continue PT and OT * Case management following for outpatient rehab needs 03/17 * Continue PT and OT * Will require placement 03/20 * No change * Case coordination working on placement 03/21 * Department of family services contacted as we are still unsuccessful in getting in touch with the daughter. Patient is unable to make decisions for herself. Case management following. * continue PT and OT 04/06 * no change (4) Moderate protein-calorie malnutrition: Code(s): E44.0 - Moderate protein-calorie malnutrition Status: Chronic Assessment and Plan: * secondary to failure to thrive * added protein shakes to each meal * regular diet * Resumed Megace 03/16 * encourage po intake * No change to current treatment plan 03/17 * No change (5) Adult failure to thrive: Code(s): R62.7 - Adult failure to thrive Status: Acute Assessment and Plan: patient has been worsening for the last year patient's passed around a year ago suffering from depression, bipolar disorder and anxiety * group home placement * see above 3 03/16 * Continue PT and OT * Case management working on placement 03/17 * No change (6) Depression: Code(s): F32.9 - Major depressive disorder, single episode, unspecified Status: Chronic Assessment and Plan: * Resumed home medications BuSpar and Wellbutrin, citalopram 03/16 * No change (7) Anxiety: Code(s): F41.9 - Anxiety disorder, unspecified Status: Chronic Assessment and Plan: * Resumed home medications BuSpar and Wellbutrin 03/16 * No change (8) Bipolar disorder: Code(s): F31.9 - Bipolar disorder, unspecified Status: Chronic Assessment and Plan: * Resumed home medications divalproex 03/16 * No change (9) Hypothyroidism: Code(s): E03.9 - Hypothyroidism, unspecified Status: Chronic Assessment and Plan: * Resumed Levothyroxine 03/16 * Will check TSH level * Continue Synthroid 03/17 * TSH 0.89 (10) Hypotension: Code(s): I95.9 - Hypotension, unspecified Status: Acute Assessment and Plan: * resume patient's midodrine * monitor BP per unit protocol 03/16 * No change Subjective Date/time seen: 04/09/24 09:04 Interval history: Interval history: Patient is a 68-year-old female who was sent over to the emergency department by her primary care physician due to increased generalized weakness which has gotten increasingly worse over the last week. Patient is a poor historian some information was gathered via the medical chart as stated from emergency department family has requested patient be placed in long care facility unable to care for self anymore. patient with past medical history of bipolar disorder, CHF, failure to thrive, and depression. initial findings in the emergency department did show a chest x-ray with right lower lobe infiltrate suggestive of pneumonia. Patient with normal WBC, afebrile no respiratory distress. Patient denied CP, SOB, Cough, dizziness, nausea, and vomiting overall states she just did not feel well and has had worsening weakness. upon assessment patient was found to also a systemic rash lower and upper extremities as well as her trunk back as reported from medical chart when she saw her primary patient's daughter reported this began about a month ago with no new medications or changes. patient was admitted to the medical unit for pneumonia, generalized weakness, and failure to thrive. labs were reviewed and unremarkable vital stable. Subjective: Patient denies any new complaints today. Awaiting placement. referrals sent today. [facility] will accept with medicaid pending Review of Systems Review of Systems: All systems reviewed & are unremarkable except as noted in HPI and below Exam Narrative: General: failure to thrive, very malnourished Cardiac: Normal S1 and S2. No murmur, gallops or friction rubs, peripheral pulses intact. Respiratory: Lungs clear to auscultation, no adventitious lung sounds, currently on room air Gastrointestinal: soft, non-distended, non-tender, normoactive bowel sounds. : voiding without difficulty. Extremities: moves all extremities well, no edema, currently in mittens due to her excessive scratching Skin: rash healing Neuro: Alert and oriented x1 to 2 at best Objective Data Vital Signs Vital Signs: Vital Signs - 24 hr 04/08/24 16:00 04/09/24 00:00 Temperature 97.0 F L 98.0 F Pulse Rate 90 88 Respiratory Rate 18 16 Blood Pressure 130/60 121/54 L Pulse Oximetry 96 96 Oxygen Delivery Room Air Room Air Intake/Output Intake/Output: Intake & Output 04/06/24 04/07/24 04/08/24 04/09/24 23:59 23:59 23:59 23:59 Intake Total 1250 1400 1260 200 Balance 1250 1400 1260 200 Meds/Results Medications: Active Medications Generic Name Dose Route Start Last Admin Trade Name Freq PRN Reason Stop Dose Admin Acetaminophen 650 mg 03/14/24 20:34 04/03/24 20:58 Acetaminophen 325 Mg Tablet PO 650 mg Q4H PRN Administration Mild Pain (1-3) or Fever Al Hydrox/Mg Hydrox/Simethicone 30 ml 03/14/24 20:34 Mag Hydrox/Al Hydrox/Simeth 30 Ml Udc PO QID PRN Dyspepsia Ascorbic Acid 500 mg 03/15/24 09:00 04/09/24 08:57 Ascorbic Acid 500 Mg Tablet PO 500 mg BID MINH Administration Aspirin 81 mg 03/15/24 09:00 04/09/24 08:57 Aspirin 81 Mg Enteric Tablet PO 81 mg QAM MINH Administration Atorvastatin Calcium 80 mg 03/15/24 09:00 04/09/24 08:59 Atorvastatin 40 Mg Tablet PO 80 mg DAILY MINH Administration Bupropion HCl 150 mg 03/15/24 09:00 04/09/24 08:57 Bupropion Hcl Xl (24 Hr) 150 Mg Tabcr PO 150 mg DAILY MINH Administration Buspirone HCl 15 mg 03/15/24 09:00 04/09/24 08:56 Buspirone Hcl 5 Mg Tablet PO 15 mg TID MINH Administration Clopidogrel Bisulfate 75 mg 03/15/24 09:00 04/09/24 08:58 Clopidogrel Bisulfate 75 Mg Tablet PO 75 mg DAILY MINH Administration Cyanocobalamin 500 mcg 03/15/24 09:00 04/09/24 08:56 Cyanocobalamin 500 Mcg Tablet PO 500 mcg QAM MINH Administration Diphenhydramine HCl 25 mg 03/15/24 10:06 04/02/24 21:28 Diphenhydramine Hcl Cap 25 Mg Capsule PO 25 mg Q6H PRN Administration Itching Divalproex Sodium 500 mg 03/14/24 22:15 04/08/24 21:[address] 250 Mg Tabec PO 500 mg Q12H MINH Administration Enoxaparin Sodium 40 mg 03/16/24 09:00 04/09/24 08:54 Enoxaparin 40 Mg/0.4 Ml Syringe SUB-Q 40 mg DAILY MINH Administration Escitalopram Oxalate 10 mg 03/14/24 21:00 04/08/24 21:36 Escitalopram Oxalate 10 Mg Tablet PO 10 mg HS MINH Administration Folic Acid 1 mg 03/15/24 09:00 04/09/24 08:56 Folic Acid 1 Mg Tablet PO 1 mg DAILY MINH Administration Gabapentin 100 mg 03/14/24 22:00 04/09/24 05:44 Gabapentin 100 Mg Capsule BY MOUTH 100 mg Q8HR MINH Administration Hydrocortisone 1 applic 03/30/24 09:30 04/09/24 08:57 Hydrocortisone 2.5% Cream 30 Gm Tube TOPICAL 1 applic Q12HR MINH Administration Hydroxyzine HCl 25 mg 03/29/24 18:00 04/09/24 05:44 Hydroxyzine Hcl 25 Mg Tablet PO 25 mg Q6HR MINH Administration Levothyroxine Sodium 75 mcg 03/15/24 09:00 04/09/24 05:44 Levothyroxine Sodium 75 Mcg Tablet PO 75 mcg DAILY@0630 MINH Administration Megestrol Acetate 40 mg 03/16/24 13:00 04/09/24 08:57 Megestrol Acetate (*Chemo) 40 Mg Tablet PO 40 mg QID MINH Administration Trazodone HCl 100 mg 03/14/24 22:25 04/08/24 21:39 Trazodone Hcl 50 Mg Tablet PO 100 mg HS PRN Administration Insomnia Radiology Results: ITS Impressions Chest X-Ray 03/23/24 08:35 IMPRESSION: 1. No acute cardiopulmonary disease. Quality VTE Prophylaxis VTE prophylaxis: pharmacologic ordered
--- NOTE | 2024-04-09 09:04 | PM.IMPN ---
Progress Note: A&P Assessment and Plan (1) Pneumonia: Qualifiers: Laterality: left Lung location: lower lobe of lung Pneumonia type: due to unspecified organism Qualified Code(s): J18.9 - Pneumonia, unspecified organism Code(s): J18.9 - Pneumonia, unspecified organism Status: Resolved Assessment and Plan: CXR left basilar infiltrates suspicious for pneumonia, normal WBC, afebrile, on room air but does have generalized weakness that has worsened over the last week given Rocephin and azithromycin in the emergency department transitioned to oral Augmentin oxygen p.r.n. incentive spirometer 03/16 Continue Augmentin and Azithromycin Continue IS while awake 03/17 Continue current treatment plan 03/18 No change RESOLVED 03/23 Repeat chest xray awaiting result WBC have increased to 23 unknown cause no s/s of infection (2) Rash: Code(s): R21 - Rash and other nonspecific skin eruption Status: Acute Assessment and Plan: systemic rash upper and lower extremities chest and back treat with prednisone added Benadryl for itching 03/16 Rash all over body, BUE, BLE and inbetween fingers and toes Could be a form of eczema, however can not rule out scabies. Left message for daughter to call back. Continue prednisone Will order permethrin 5% topical cream x1 now. Start Atarax for itching Will isolate for possible scabies 03/17 Rash showing some improvement with permethrin 5% cream Continue atarax for itching 03/18 rash improving but still with mild itch Stopped prednisone can continue with cream Bed bugs vs scabies vs systemic dermatitis 03/20 No change to current treatment plan 03/23/2024 Ivermectin given yesterday Permethrin will be administered today prn medication skin looks a lot better 04/06 skin almost completely healed (3) Generalized weakness: Code(s): R53.1 - Weakness Status: Acute Assessment and Plan: likely secondary to pneumonia and failure to thrive PT/OT for evaluation family requesting SNF 03/16 Continue PT and OT Case management following for outpatient rehab needs 03/17 Continue PT and OT Will require placement 03/20 No change Case coordination working on placement 03/21 Department of family services contacted as we are still unsuccessful in getting in touch with the daughter. Patient is unable to make decisions for herself. Case management following. 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 see above 3 03/16 Continue PT and OT Case management working on placement 03/17 No change (6) Depression: Code(s): F32.9 - Major depressive disorder, single episode, unspecified Status: Chronic Assessment and Plan: Resumed home medications BuSpar and Wellbutrin, citalopram 03/16 No change (7) Anxiety: Code(s): F41.9 - Anxiety disorder, unspecified Status: Chronic Assessment and Plan: Resumed home medications BuSpar and Wellbutrin 03/16 No change (8) Bipolar disorder: Code(s): F31.9 - Bipolar disorder, unspecified Status: Chronic Assessment and Plan: Resumed home medications divalproex 03/16 No change (9) Hypothyroidism: Code(s): E03.9 - Hypothyroidism, unspecified Status: Chronic Assessment and Plan: Resumed Levothyroxine 03/16 Will check TSH level Continue Synthroid 03/17 TSH 0.89 (10) Hypotension: Code(s): I95.9 - Hypotension, unspecified Status: Acute Assessment and Plan: resume patient's midodrine monitor BP per unit protocol 03/16 No change Subjective Date/time seen: 04/09/24 09:04 Interval history: Interval history: Patient is a 68-year-old female who was sent over to the emergency department by her primary care physician due to increased generalized weakness which has gotten increasingly worse over the last week. Patient is a poor historian some information was gathered via the medical chart as stated from emergency department family has requested patient be placed in long care facility unable to care for self anymore. patient with past medical history of bipolar disorder, CHF, failure to thrive, and depression. initial findings in the emergency department did show a chest x-ray with right lower lobe infiltrate suggestive of pneumonia. Patient with normal WBC, afebrile no respiratory distress. Patient denied CP, SOB, Cough, dizziness, nausea, and vomiting overall states she just did not feel well and has had worsening weakness. upon assessment patient was found to also a systemic rash lower and upper extremities as well as her trunk back as reported from medical chart when she saw her primary patient's daughter reported this began about a month ago with no new medications or changes. patient was admitted to the medical unit for pneumonia, generalized weakness, and failure to thrive. labs were reviewed and unremarkable vital stable. Subjective: Patient denies any new complaints today. Awaiting placement. referrals sent today. [facility] will accept with medicaid pending Review of Systems Review of Systems: All systems reviewed & are unremarkable except as noted in HPI and below Exam Narrative: General: failure to thrive, very malnourished Cardiac: Normal S1 and S2. No murmur, gallops or friction rubs, peripheral pulses intact. Respiratory: Lungs clear to auscultation, no adventitious lung sounds, currently on room air Gastrointestinal: soft, non-distended, non-tender, normoactive bowel sounds. : voiding without difficulty. Extremities: moves all extremities well, no edema, currently in mittens due to her excessive scratching Skin: rash healing Neuro: Alert and oriented x1 to 2 at best Objective Data Vital Signs Vital Signs: Vital Signs - 24 hr 04/08/24 16:00 04/09/24 00:00 Temperature 97.0 F L 98.0 F Pulse Rate 90 88 Respiratory Rate 18 16 Blood Pressure 130/60 121/54 L Pulse Oximetry 96 96 Oxygen Delivery Room Air Room Air Intake/Output Intake/Output: Intake & Output 04/06/24 04/07/24 04/08/24 04/09/24 23:59 23:59 23:59 23:59 Intake Total 1250 1400 1260 200 Balance 1250 1400 1260 200 Meds/Results Medications: Active Medications Generic Name Dose Route Start Last Admin Trade Name Freq PRN Reason Stop Dose Admin Acetaminophen 650 mg 03/14/24 20:34 04/03/24 20:58 Acetaminophen 325 Mg Tablet PO 650 mg Q4H PRN Administration Mild Pain (1-3) or Fever Al Hydrox/Mg Hydrox/Simethicone 30 ml 03/14/24 20:34 Mag Hydrox/Al Hydrox/Simeth 30 Ml Udc PO QID PRN Dyspepsia Ascorbic Acid 500 mg 03/15/24 09:00 04/09/24 08:57 Ascorbic Acid 500 Mg Tablet PO 500 mg BID [facility] Administration Aspirin 81 mg 03/15/24 09:00 04/09/24 08:57 Aspirin 81 Mg Enteric Tablet PO 81 mg QAM [facility] Administration Atorvastatin Calcium 80 mg 03/15/24 09:00 04/09/24 08:59 Atorvastatin 40 Mg Tablet PO 80 mg DAILY [facility] Administration Bupropion HCl 150 mg 03/15/24 09:00 04/09/24 08:57 Bupropion Hcl Xl (24 Hr) 150 Mg Tabcr PO 150 mg DAILY [facility] Administration Buspirone HCl 15 mg 03/15/24 09:00 04/09/24 08:56 Buspirone Hcl 5 Mg Tablet PO 15 mg TID [facility] Administration Clopidogrel Bisulfate 75 mg 03/15/24 09:00 04/09/24 08:58 Clopidogrel Bisulfate 75 Mg Tablet PO 75 mg DAILY [facility] Administration Cyanocobalamin 500 mcg 03/15/24 09:00 04/09/24 08:56 Cyanocobalamin 500 Mcg Tablet PO 500 mcg QAM [facility] Administration Diphenhydramine HCl 25 mg 03/15/24 10:06 04/02/24 21:28 Diphenhydramine Hcl Cap 25 Mg Capsule PO 25 mg Q6H PRN Administration Itching Divalproex Sodium 500 mg 03/14/24 22:15 04/08/24 21:[address] 250 Mg Tabec PO 500 mg Q12H [facility] Administration Enoxaparin Sodium 40 mg 03/16/24 09:00 04/09/24 08:54 Enoxaparin 40 Mg/0.4 Ml Syringe SUB-Q 40 mg DAILY [facility] Administration Escitalopram Oxalate 10 mg 03/14/24 21:00 04/08/24 21:36 Escitalopram Oxalate 10 Mg Tablet PO 10 mg HS [facility] Administration Folic Acid 1 mg 03/15/24 09:00 04/09/24 08:56 Folic Acid 1 Mg Tablet PO 1 mg DAILY [facility] Administration Gabapentin 100 mg 03/14/24 22:00 04/09/24 05:44 Gabapentin 100 Mg Capsule BY MOUTH 100 mg Q8HR [facility] Administration Hydrocortisone 1 applic 03/30/24 09:30 04/09/24 08:57 Hydrocortisone 2.5% Cream 30 Gm Tube TOPICAL 1 applic Q12HR [facility] Administration Hydroxyzine HCl 25 mg 03/29/24 18:00 04/09/24 05:44 Hydroxyzine Hcl 25 Mg Tablet PO 25 mg Q6HR [facility] Administration Levothyroxine Sodium 75 mcg 03/15/24 09:00 04/09/24 05:44 Levothyroxine Sodium 75 Mcg Tablet PO 75 mcg DAILY@0630 [facility] Administration Megestrol Acetate 40 mg 03/16/24 13:00 04/09/24 08:57 Megestrol Acetate (*Chemo) 40 Mg Tablet PO 40 mg QID [facility] Administration Trazodone HCl 100 mg 03/14/24 22:25 04/08/24 21:39 Trazodone Hcl 50 Mg Tablet PO 100 mg HS PRN Administration Insomnia Radiology Results: ITS Impressions Chest X-Ray 03/23/24 08:35 IMPRESSION: 1. No acute cardiopulmonary disease. Quality VTE Prophylaxis VTE prophylaxis: pharmacologic ordered
[2024-04-09] MEDS: DIVALPROEX SODIUM DR 250 MG TABEC 500 MG PO ×2 (09:27→21:10)
[2024-04-09 13:31] LABS: Basophils Absolute Auto 0.08 K/mm3 (0.00-0.10); Basophils Percent Auto 0.8 % (0.0-1.0); Eosinophils Absolute Auto 0.62 K/mm3 (0.02-0.50); Eosinophils Percent Auto 6.4 % (1.0-6.0); Hematocrit 32.6 % (35.0-42.0); Hemoglobin 10.1 g/dL (11.7-13.8); Immature Granulocyte Absolute 0.05 K/mm3 (0.00-0.00); Immature Granulocyte Percent A 0.5 % (0.0-0.0); Lymphocytes Absolute Auto 2.59 K/mm3 (1.10-4.50); Lymphocytes Percent Auto 26.6 % (18.0-42.0); Mean Corpuscular Hemoglobin 30.1 pg (27.0-31.0); Mean Corpuscular Volume 97.3 fL (78.0-102.0); Mean Platelet Volume 8.2 fl (9.2-11.8); Monocytes Absolute Auto 1.03 K/mm3 (0.10-0.90); Monocytes Percent Auto 10.6 % (2.0-11.0); Neutrophils Absolute Auto 5.38 K/mm3 (1.70-7.20); Neutrophils Percent Auto 55.1 % (50.0-70.0); Platelet Count Result 470 K/mm3 (150-420); Red Blood Count 3.35 M/mm3 (4.20-5.40); Red Cell Distribution Width 15.1 % (11.6-14.4); White Blood Count 9.8 K/mm3 (4.8-10.8)
[2024-04-09 13:46] LABS: Alanine Aminotransferase 10 U/L (14-59); Albumin Level 2.3 g/dL (3.4-5.0); Alkaline Phosphatase 79 U/L (46-116); Anion Gap 5 mmol/L (4-12); Aspartate Amino Transferase < 10 U/L (15-37); Bilirubin,Total 0.2 mg/dL (0.00-1.00); Blood Urea Nitrogen 21 mg/dL (7-18); Calcium 9.1 mg/dL (8.5-10.1); Carbon Dioxide 32 mmol/L (21-32); Chloride 102 mmol/L (98-108); Estimated CRCL calculation 39 ml/min; Estimated Glomerular Filt Rate > 60; Glucose 92 mg/dL (70-99); Osmolality Calculated 291 mOsm/kg (285-295); Potassium 4.3 mmol/L (3.5-5.1); Sodium 139 mmol/L (136-145); Total Protein 6.6 g/dL (6.4-8.2)
[2024-04-09 16:00] VITALS: BP 97/57; PULSE 87; RESP 16; TEMP 36.2; O2SAT 95
[2024-04-09 20:00] VITALS: PULSE 87; RESP 16; O2SAT 95
[2024-04-09] MEDS: traZODone HCL 50 MG TABLET 100 MG PO (20:55)
[2024-04-09] MEDS: diphenhydrAMINE HCl CAP 25 MG CAPSULE PO (20:55)
[2024-04-09] MEDS: ESCITALOPRAM OXALATE 10 MG TABLET PO (20:55)
[2024-04-09] MEDS: ACETAMINOPHEN 325 MG TABLET 650 MG PO (20:56)
[2024-04-10] VITALS: BP 110/80; PULSE 88; RESP 17; TEMP 36.2; O2SAT 97
[2024-04-10] MEDS: GABAPENTIN 100 MG CAPSULE BY MOUTH ×3 (06:02→21:59)
[2024-04-10] MEDS: LEVOTHYROXINE SODIUM 75 MCG TABLET PO (06:02)
[2024-04-10] MEDS: hydrOXYzine HCL 25 MG TABLET PO ×3 (06:02→18:01)
[2024-04-10 08:00] VITALS: BP 145/53; PULSE 88; RESP 16; TEMP 36.2; O2SAT 95
[2024-04-10] MEDS: ENOXAPARIN 40 MG/0.4 ML SYRINGE SUB-Q (09:19)
[2024-04-10] MEDS: ATORVASTATIN 40 MG TABLET 80 MG PO (09:20)
[2024-04-10] MEDS: DIVALPROEX SODIUM DR 250 MG TABEC 500 MG PO ×2 (09:20→21:59)
[2024-04-10] MEDS: buPROPion HCL XL (24 HR) 150 MG TABCR PO (09:20)
[2024-04-10] MEDS: MEGESTROL ACETATE (*CHEMO) 40 MG TABLET PO ×4 (09:21→21:03)
[2024-04-10] MEDS: FOLIC ACID 1 MG TABLET PO (09:21)
[2024-04-10] MEDS: busPIRone HCL 5 MG TABLET 15 MG PO ×3 (09:21→16:55)
[2024-04-10] MEDS: ASCORBIC ACID 500 MG TABLET PO ×2 (09:22→16:56)
[2024-04-10] MEDS: CYANOCOBALAMIN 500 MCG TABLET PO (09:22)
[2024-04-10] MEDS: ASPIRIN 81 MG ENTERIC TABLET PO (09:23)
[2024-04-10] MEDS: CLOPIDOGREL BISULFATE 75 MG TABLET PO (09:23)
--- NOTE | 2024-04-10 09:23 | P.PNIM_ITS ---
Progress Note: A&P Assessment and Plan (1) Pneumonia: Qualifiers: Laterality: left Lung location: lower lobe of lung Pneumonia type: due to unspecified organism Qualified Code(s): J18.9 - Pneumonia, unspecified organism Code(s): J18.9 - Pneumonia, unspecified organism Status: Resolved Assessment and Plan: CXR left basilar infiltrates suspicious for pneumonia, normal WBC, afebrile, on room air but does have generalized weakness that has worsened over the last week * given Rocephin and azithromycin in the emergency department * transitioned to oral Augmentin * oxygen p.r.n. * incentive spirometer 03/16 * Continue Augmentin and Azithromycin * Continue IS while awake 03/17 * Continue current treatment plan 03/18 * No change RESOLVED 03/23 Repeat chest xray awaiting result WBC have increased to 23 unknown cause no s/s of infection (2) Rash: Code(s): R21 - Rash and other nonspecific skin eruption Status: Acute Assessment and Plan: * systemic rash upper and lower extremities chest and back * treat with prednisone added Benadryl for itching 03/16 * Rash all over body, BUE, BLE and inbetween fingers and toes * Could be a form of eczema, however can not rule out scabies. Left message for daughter to call back. * Continue prednisone * Will order permethrin 5% topical cream x1 now. * Start Atarax for itching * Will isolate for possible scabies 03/17 * Rash showing some improvement with permethrin 5% cream * Continue atarax for itching 03/18 * rash improving but still with mild itch * Stopped prednisone * can continue with cream * Bed bugs vs scabies vs systemic dermatitis 03/20 * No change to current treatment plan 03/23/2024 * Ivermectin given yesterday * Permethrin will be administered today * prn medication * skin looks a lot better 04/06 * skin almost completely healed (3) Generalized weakness: Code(s): R53.1 - Weakness Status: Acute Assessment and Plan: * likely secondary to pneumonia and failure to thrive * PT/OT for evaluation * family requesting SNF 03/16 * Continue PT and OT * Case management following for outpatient rehab needs 03/17 * Continue PT and OT * Will require placement 03/20 * No change * Case coordination working on placement 03/21 * Department of family services contacted as we are still unsuccessful in getting in touch with the daughter. Patient is unable to make decisions for herself. Case management following. * continue PT and OT 04/06 * no change (4) Moderate protein-calorie malnutrition: Code(s): E44.0 - Moderate protein-calorie malnutrition Status: Chronic Assessment and Plan: * secondary to failure to thrive * added protein shakes to each meal * regular diet * Resumed Megace 03/16 * encourage po intake * No change to current treatment plan 03/17 * No change (5) Adult failure to thrive: Code(s): R62.7 - Adult failure to thrive Status: Acute Assessment and Plan: patient has been worsening for the last year patient's passed around a year ago suffering from depression, bipolar disorder and anxiety * halfway placement * see above 3 03/16 * Continue PT and OT * Case management working on placement 03/17 * No change (6) Depression: Code(s): F32.9 - Major depressive disorder, single episode, unspecified Status: Chronic Assessment and Plan: * Resumed home medications BuSpar and Wellbutrin, citalopram 03/16 * No change (7) Anxiety: Code(s): F41.9 - Anxiety disorder, unspecified Status: Chronic Assessment and Plan: * Resumed home medications BuSpar and Wellbutrin 03/16 * No change (8) Bipolar disorder: Code(s): F31.9 - Bipolar disorder, unspecified Status: Chronic Assessment and Plan: * Resumed home medications divalproex 03/16 * No change (9) Hypothyroidism: Code(s): E03.9 - Hypothyroidism, unspecified Status: Chronic Assessment and Plan: * Resumed Levothyroxine 03/16 * Will check TSH level * Continue Synthroid 03/17 * TSH 0.89 (10) Hypotension: Code(s): I95.9 - Hypotension, unspecified Status: Acute Assessment and Plan: * resume patient's midodrine * monitor BP per unit protocol 03/16 * No change Plan Code status: Full code per patient DVT prophylaxis: Lovenox Stress ulcer prophylaxis: Protonix 40 daily PT/OT notes: SNF Disposition: patient continues admission while awaiting placement plan is to discharge to half-way facility tomorrow. Time Spent With Patient Time with patient: 15 - 25 minutes Subjective Date/time seen: 04/10/24 09:23 Interval history: patient was a 68-year-old female who was initially admitted for treatment of generalized weakness secondary to pneumonia as well as full body rash family was unable to care for patient at home any longer due to failure to thrive patient continued admission while waiting on placement however there was some issues due to financial situations. Subjective: Patient denies any new complaints today. patient was excepted to [facility] in plan is to discharge tomorrow with Medicaid pending. patient's overall itching has improved she has had good oral intake patient denied any pain or needs today. Review of Systems Review of Systems: All systems reviewed & are unremarkable except as noted in HPI and below Exam Narrative: General: failure to thrive, very malnourished Cardiac: Normal S1 and S2. No murmur, gallops or friction rubs, peripheral pulses intact. Respiratory: Lungs clear to auscultation, no adventitious lung sounds, currently on room air Gastrointestinal: soft, non-distended, non-tender, normoactive bowel sounds. : voiding without difficulty. Extremities: moves all extremities well, no edema, currently in mittens due to her excessive scratching Skin: rash healing Neuro: Alert and oriented x1 to 2 at best Objective Data Vital Signs Vital Signs: Vital Signs - 24 hr 04/09/24 16:00 04/09/24 20:00 04/10/24 00:00 Temperature 97.1 F L 97.2 F L Pulse Rate 87 87 88 Respiratory Rate 16 16 17 Blood Pressure 97/57 L 110/80 Pulse Oximetry 95 95 97 Oxygen Delivery Room Air Room Air Room Air Intake/Output Intake/Output: Intake & Output 04/07/24 04/08/24 04/09/24 04/10/24 23:59 23:59 23:59 23:59 Intake Total 1400 1260 1660 180 Balance 1400 1260 1660 180 Meds/Results Medications: Active Medications Generic Name Dose Route Start Last Admin Trade Name Freq PRN Reason Stop Dose Admin Acetaminophen 650 mg 03/14/24 20:34 04/09/24 20:56 Acetaminophen 325 Mg Tablet PO 650 mg Q4H PRN Administration Mild Pain (1-3) or Fever Al Hydrox/Mg Hydrox/Simethicone 30 ml 03/14/24 20:34 Mag Hydrox/Al Hydrox/Simeth 30 Ml Udc PO QID PRN Dyspepsia Ascorbic Acid 500 mg 03/15/24 09:00 04/09/24 17:26 Ascorbic Acid 500 Mg Tablet PO 500 mg BID [facility] Administration Aspirin 81 mg 03/15/24 09:00 04/09/24 08:57 Aspirin 81 Mg Enteric Tablet PO 81 mg QAM [facility] Administration Atorvastatin Calcium 80 mg 03/15/24 09:00 04/09/24 08:59 Atorvastatin 40 Mg Tablet PO 80 mg DAILY [facility] Administration Bupropion HCl 150 mg 03/15/24 09:00 04/09/24 08:57 Bupropion Hcl Xl (24 Hr) 150 Mg Tabcr PO 150 mg DAILY [facility] Administration Buspirone HCl 15 mg 03/15/24 09:00 04/09/24 17:25 Buspirone Hcl 5 Mg Tablet PO 15 mg TID [facility] Administration Clopidogrel Bisulfate 75 mg 03/15/24 09:00 04/09/24 08:58 Clopidogrel Bisulfate 75 Mg Tablet PO 75 mg DAILY [facility] Administration Cyanocobalamin 500 mcg 03/15/24 09:00 04/09/24 08:56 Cyanocobalamin 500 Mcg Tablet PO 500 mcg QAM [facility] Administration Diphenhydramine HCl 25 mg 03/15/24 10:06 04/09/24 20:55 Diphenhydramine Hcl Cap 25 Mg Capsule PO 25 mg Q6H PRN Administration Itching Divalproex Sodium 500 mg 03/14/24 22:15 04/09/24 21:[address] 250 Mg Tabec PO 500 mg Q12H [facility] Administration Enoxaparin Sodium 40 mg 03/16/24 09:00 04/09/24 08:54 Enoxaparin 40 Mg/0.4 Ml Syringe SUB-Q 40 mg DAILY [facility] Administration Escitalopram Oxalate 10 mg 03/14/24 21:00 04/09/24 20:55 Escitalopram Oxalate 10 Mg Tablet PO 10 mg HS [facility] Administration Folic Acid 1 mg 03/15/24 09:00 04/09/24 08:56 Folic Acid 1 Mg Tablet PO 1 mg DAILY [facility] Administration Gabapentin 100 mg 03/14/24 22:00 04/10/24 06:02 Gabapentin 100 Mg Capsule BY MOUTH 100 mg Q8HR [facility] Administration Hydrocortisone 1 applic 03/30/24 09:30 04/09/24 20:55 Hydrocortisone 2.5% Cream 30 Gm Tube TOPICAL 1 applic Q12HR [facility] Administration Hydroxyzine HCl 25 mg 03/29/24 18:00 04/10/24 06:02 Hydroxyzine Hcl 25 Mg Tablet PO 25 mg Q6HR [facility] Administration Levothyroxine Sodium 75 mcg 03/15/24 09:00 04/10/24 06:02 Levothyroxine Sodium 75 Mcg Tablet PO 75 mcg DAILY@0630 [facility] Administration Megestrol Acetate 40 mg 03/16/24 13:00 04/09/24 20:55 Megestrol Acetate (*Chemo) 40 Mg Tablet PO 40 mg QID [facility] Administration Trazodone HCl 100 mg 03/14/24 22:25 04/09/24 20:55 Trazodone Hcl 50 Mg Tablet PO 100 mg HS PRN Administration Insomnia Radiology Results: ITS Impressions Chest X-Ray 03/23/24 08:35 IMPRESSION: 1. No acute cardiopulmonary disease. Labs Labs: Laboratory Results - last 24 hr 04/09/24 13:25 WBC 9.8 RBC 3.35 L Hgb 10.1 L Hct 32.6 L MCV 97.3 MCH 30.1 MCHC 31.0 L RDW 15.1 H Plt Count 470 H MPV 8.2 L Immature Gran % (Auto) 0.5 H Neut % (Auto) 55.1 Lymph % (Auto) 26.6 [place] % (Auto) 10.6 Eos % (Auto) 6.4 H Baso % (Auto) 0.8 Lymph # (Auto) 2.59 [place] # (Auto) 1.03 H Eos # (Auto) 0.62 H Baso # (Auto) 0.08 Abs Immat Gran (auto) 0.05 H Absolute Neuts (auto) 5.38 Absolute Nucleated RBC 0.00 Nucleated RBC % 0.0 Sodium 139 Potassium 4.3 Chloride 102 Carbon Dioxide 32 Anion Gap 5 BUN 21 H Creatinine 0.92 Estim Creat Clear Calc 39 Estimated GFR > 60 Glucose 92 Calculated Osmolality 291 Calcium 9.1 Total Bilirubin 0.2 AST < 10 L ALT 10 L Alkaline Phosphatase 79 Total Protein 6.6 Albumin 2.3 L Quality VTE Prophylaxis VTE prophylaxis: pharmacologic ordered -Patient's previous records reviewed on admission -ER notes reviewed in detail on admission -discussed all findings and current treatment plan with patient/Family/POA -Consultations reviewed for recommendations -Patient's disposition for safe discharge discussed with case monitor Dictation performed by [employer] direct speech recognition software, therefore experimental welder variants and typographical errors may occur. Hospitalist MIPS Advance Care Plan I have confirmed that the patient's Advanced Care Plan is present, code status is documented, or surrogate decision maker is listed in patient medical record.: Yes Medication Reconciliation I have utilized all available resources to obtain, update and review the patients current medications (includes all prescriptions, OTC, herbals, cannabis, and nutritional supplements).: Yes The patient is not eligible for med reconciliation; the patient is in a emergent medical situation where delaying treatment would jeopardize the patients health.: No
[2024-04-10] MEDS: HYDROCORTISONE 2.5% CREAM 30 GM TUBE 1 APPLIC TOPICAL ×2 (09:24→21:04)
[2024-04-10] MEDS: ACETAMINOPHEN 325 MG TABLET 650 MG PO (12:33)
[2024-04-10 16:00] VITALS: BP 115/62; PULSE 80; RESP 18; TEMP 36.6; O2SAT 96
--- NOTE | 2024-04-10 16:00 | PC.NURSE ---
Pt noted to have the restraint for mitts d/c'd yesterday 04/09. Restraints removed from room and taken off worklist. Pt is sleeping comfortably at this time.
[2024-04-10 19:56] VITALS: RESP 20; O2SAT 97
[2024-04-10] MEDS: ESCITALOPRAM OXALATE 10 MG TABLET PO (21:03)
[2024-04-11] VITALS: BP 130/55; PULSE 80; RESP 16; TEMP 36.6; O2SAT 96
[2024-04-11] MEDS: hydrOXYzine HCL 25 MG TABLET PO ×3 (00:49→12:59)
[2024-04-11] MEDS: LEVOTHYROXINE SODIUM 75 MCG TABLET PO (06:07)
[2024-04-11] MEDS: GABAPENTIN 100 MG CAPSULE BY MOUTH ×2 (06:07→13:00)
[2024-04-11 08:00] VITALS: BP 109/54; PULSE 86; RESP 16; TEMP 36.2; O2SAT 96
--- NOTE | 2024-04-11 08:05 | P.DS_ITS ---
DS: Admitting Diagnosis Discharge Date 04/11/2024 Admitting Diagnosis Pneumonia/Failure to thrive/Malnutrition DS: Discharge Diagnosis Discharge Diagnosis (1) Pneumonia: Qualifiers: Laterality: left Lung location: lower lobe of lung Pneumonia type: due to unspecified organism Qualified Code(s): J18.9 - Pneumonia, unspecified organism Code(s): J18.9 - Pneumonia, unspecified organism Status: Resolved Assessment and Plan: RESOLVED completed antibiotic therapy currently on room air (2) Rash: Code(s): R21 - Rash and other nonspecific skin eruption Status: Acute Assessment and Plan: * continue with hydrocortisone cream as needed (3) Generalized weakness: Code(s): R53.1 - Weakness Status: Acute Assessment and Plan: * continue with PT/OT (4) Moderate protein-calorie malnutrition: Code(s): E44.0 - Moderate protein-calorie malnutrition Status: Chronic Assessment and Plan: * secondary to failure to thrive * added protein shakes to each meal * regular diet * Resumed Megace (5) Adult failure to thrive: Code(s): R62.7 - Adult failure to thrive Status: Acute Assessment and Plan: patient has been worsening for the last year patient's passed around a year ago suffering from depression, bipolar disorder and anxiety * termite control service representative placement (6) Depression: Code(s): F32.9 - Major depressive disorder, single episode, unspecified Status: Chronic Assessment and Plan: * continue home medications BuSpar and Wellbutrin, citalopram (7) Anxiety: Code(s): F41.9 - Anxiety disorder, unspecified Status: Chronic Assessment and Plan: * continue home medications BuSpar and Wellbutrin (8) Bipolar disorder: Code(s): F31.9 - Bipolar disorder, unspecified Status: Chronic Assessment and Plan: * continue home medications divalproex (9) Hypothyroidism: Code(s): E03.9 - Hypothyroidism, unspecified Status: Chronic Assessment and Plan: * continue Levothyroxine (10) Hypotension: Code(s): I95.9 - Hypotension, unspecified Status: Acute Assessment and Plan: * resolved Plan Disposition: discharge to nursing home facility DS: Summary Hospital Course Reason for hospitalization: Pneumonia/failure to thrive/ malnutrition Hospital Course: Patient was 68-year-old female who was sent over to the emergency department by her primary care physician due to increased generalized weakness which has gotten increasingly worse over the last week. Patient is a poor historian some information was gathered via the medical chart as stated from emergency department family has requested patient be placed in long care facility unable to care for self anymore. patient with past medical history of bipolar disorder, CHF, failure to thrive, and depression. initial findings in the emergency department did show a chest x-ray with right lower lobe infiltrate suggestive of pneumonia. Patient with normal WBC, afebrile no respiratory distress. Patient denied CP, SOB, Cough, dizziness, nausea, and vomiting overall states she just did not feel well and has had worsening weakness. upon assessment patient was found to also a systemic rash lower and upper extremities as well as her trunk back as reported from medical chart when she saw her primary patient's daughter reported this began about a month ago with no new medications or changes. patient was admitted to the medical unit for pneumonia, generalized weakness, and failure to thrive. labs were reviewed and unremarkable vital stable. Patient was admitted to the medical unit further evaluation and treatment of pneumonia and generalized weakness. Patient had completed ABX therapy remained afebrile and on room air. Upon admission patient did noticeable rash throughout her body evaluated for bedbugs and possible scabies was treated for scabies as well as oral steroids or systemic rash. patient was also provided hydrocortisone cream at 1 point we did have to add Mitten because patient would continue to pick open her scabs but did improve over time. patient was initially brought in by her family who were unable to care for her any longer reported of failure to thrive poor appetite and inability to care for herself. patient seen and evaluated multiple times by Physical therapy and Occupational therapy however was very difficult following direction and did not work well with PT or OT. during her admission however patient's appetite did improve and added protein shakes to each meal. Patient was medically cleared for discharge however we did not have a safe discharge at this time. Adult protective serv ices was notified and investigating. care coordination continued to work for finding placement eventually was able to set patient up on Medicaid and found a nursing home facility to accept patient had an extended stay due to financial circumstances and family dynamics. Patient is seen day of discharge in no acute distress she was discharged to nursing home facility. Status at Discharge Functional status at discharge: uses cane/walker Time Spent with Patient Time attestation: Total time spent providing and/or coordinating discharge services: Time spent: Greater than 30 minutes Exam Narrative: General: failure to thrive, very malnourished Cardiac: Normal S1 and S2. No murmur, gallops or friction rubs, peripheral pulses intact. Respiratory: Lungs clear to auscultation, no adventitious lung sounds, currently on room air Gastrointestinal: soft, non-distended, non-tender, normoactive bowel sounds. : voiding without difficulty. Extremities: moves all extremities well, no edema, currently in mittens due to her excessive scratching Skin: rash healing Neuro: Alert and oriented x1 to 2 at best DS: Data Imaging Radiologist's impression: Radiology Results: ITS Impressions Chest X-Ray 03/23/24 08:35 IMPRESSION: 1. No acute cardiopulmonary disease. Discharge Plan Discharge Attending physician on discharge: Bipin Antonio Consulting providers: Sri Wilson Discharging Clinician: Patricia Zamora Anticipated Discharge Date/Time: 04/11/24 07:55 Patient Disposition: SNF Activity: may shower and as tolerated Diet: as tolerated and regular Discharge Instructions: Rash: * May Continue with hydrocortisone cream as needed Weakness/Moderate protein-calorie malnutrition * Encourage activity as tolerated * Regular diet * Protein shake with meals Depression: * continue BuSpar, Wellbutrin and citalopram Pneumonia: * Resolved may continue to use incentive spirometer as needed How can you care for yourself at home? ? Keep track of any new symptoms or changes in your symptoms. ? Rest until you feel better. ? Be safe with medicines. Take your medicines exactly as prescribed. Call your doctor if you think you are having a problem with your medicine. ? Do not drive after taking a prescription pain medicine. ? Ensure to follow-up with primary care physician as indicated and provide updated medication list provided to you at discharge. When should you call for help? Call 911 anytime you think you may need emergency care. For example, call if: ? You passed out (lost consciousness). Call your doctor now or seek immediate medical care if: ? You have new symptoms like fever, difficulty breathing, Chest pain, vomiting, or rash. ? You have new or different pain. ? You are confused and are having trouble thinking clearly. ? Your symptoms are getting worse. Watch closely for changes in your health, and be sure to contact your doctor if: ? You do not get better as expected. Patient Instructions: Failure to Thrive (DC), Malnutrition (DC), Community Acquired Pneumonia (DC) Patient Language: Venezuelan Stand Alone Forms: General Discharge Information, Long Term Discharge Follow-up/Referrals: Louis Hughes DO [Primary Care Provider] - 4 Weeks Discharge Medications: New buspirone 5 mg Tablet 15 mg PO TID Qty: 30 0RF folic acid 1 mg Tablet 1 mg PO DAILY Qty: 10 0RF hydrocortisone 2.5 % Cream 1 applic topical Q12HR Qty: 1 0RF divalproex [Depakote] 250 mg Tablet,Delayed Release (Dr/Ec) 500 mg PO Q12H Qty: 20 0RF ascorbic acid (vitamin C) [Vitamin C] 500 mg Tablet 500 mg PO BID Qty: 10 0RF hydroxyzine HCl 25 mg Tablet 25 mg PO Q6HR PRN (Reason: Itching) Qty: 15 0RF Continued levothyroxine 75 mcg tablet 75 mcg PO QAM Rx Instructions: TAKE 1 TABLET BY MOUTH EVERY DAY acetaminophen 325 mg Tablet 650 mg PO Q8H PRN (Reason: Mild Pain (1-3) Or Fever) Qty: 0 0RF bupropion HCl 150 mg tablet extended release 24 hr 150 mg PO DAILY Qty: 30 0RF Patient Comments: 75 MG Vitamin B-12 tablet 2,500 mcg PO DAILY escitalopram oxalate 10 mg tablet 10 mg PO HS clopidogrel 75 mg tablet 75 mg PO DAILY aspirin 81 mg Tablet,Delayed Release (Dr/Ec) 81 mg PO QAM 30 Days Qty: 30 0RF gabapentin 100 mg capsule See Rx Instructions .ROUTE .COMPLEX Qty: 90 0RF Dose Instruction: TAKE 1 CAPSULE BY MOUTH THREE TIMES A DAY Rx Instructions: TAKE 1 CAPSULE BY MOUTH THREE TIMES A DAY atorvastatin 80 mg tablet 80 mg PO DAILY Qty: 30 2RF trazodone 100 mg tablet See Rx Instructions .ROUTE .COMPLEX Qty: 90 0RF Dose Instruction: TAKE 1 TABLET ORALLY EVERY DAY AT BEDTIME Rx Instructions: TAKE 1 TABLET ORALLY EVERY DAY AT BEDTIME Changed megestrol 40 mg tablet 40 mg PO QID Qty: 30 0RF Discontinued divalproex 500 mg tablet extended release 24 hr 1,000 mg PO HS buspirone 10 mg tablet 10 mg PO BID Patient Comments: 15 MG folic acid 800 mcg Tablet 0.8 mg PO DAILY Patient Comments: 1MG midodrine 5 mg tablet 5 mg PO TID Qty: 90 3RF Patient Comments: 10 MG Rx Instructions: do not give last dose of day after 6PM or within 4 hrs of bedtime sodium chloride 1,000 mg tablet,soluble 1,500 mg PO BID Qty: 60 0RF triamcinolone acetonide 0.5 % cream 1 applic topical BID Qty: 15 0RF divalproex 500 mg Tablet Extended Release 24 Hr 500 mg PO QAM potassium chloride 20 mEq tablet extended release 20 meq PO BID Qty: 10 0RF Date of admission: 03/16/24 17:36 Primary Care Provider: Louis Hughes Admitting Provider: Bipin Antonio Attending physician on admission: Patricia Zamora Condition: Stable Quality VTE Prophylaxis VTE prophylaxis: pharmacologic ordered Hospitalist MIPS Heart Failure (Exclusion) Patient has history of Heart Transplant or Left Ventricular Assistive Device?: No IF YES, STOP HERE Heart Failure (Qualifier) Patient has current or prior documentation of LVEF less than or equal to 40%, or mod/servere depressed LVSF?: No IF NO, STOP HERE
[2024-04-11] MEDS: CLOPIDOGREL BISULFATE 75 MG TABLET PO (09:13)
[2024-04-11] MEDS: MEGESTROL ACETATE (*CHEMO) 40 MG TABLET PO ×2 (09:13→13:00)
[2024-04-11] MEDS: buPROPion HCL XL (24 HR) 150 MG TABCR PO (09:13)
[2024-04-11] MEDS: ATORVASTATIN 40 MG TABLET 80 MG PO (09:13)
[2024-04-11] MEDS: busPIRone HCL 5 MG TABLET 15 MG PO ×2 (09:13→12:59)
[2024-04-11] MEDS: ASCORBIC ACID 500 MG TABLET PO (09:13)
[2024-04-11] MEDS: ASPIRIN 81 MG ENTERIC TABLET PO (09:13)
[2024-04-11] MEDS: FOLIC ACID 1 MG TABLET PO (09:13)
[2024-04-11] MEDS: HYDROCORTISONE 2.5% CREAM 30 GM TUBE 1 APPLIC TOPICAL (09:14)
[2024-04-11] MEDS: ENOXAPARIN 40 MG/0.4 ML SYRINGE SUB-Q (09:14)
[2024-04-11] MEDS: CYANOCOBALAMIN 500 MCG TABLET PO (09:14)
[2024-04-11] MEDS: DIVALPROEX SODIUM DR 250 MG TABEC 500 MG PO (09:15)
--- NOTE | 2024-04-11 13:22 | PC.NURSE ---
Faxed discharge paper work to [facility] in [facility] @ [phone].
--- NOTE | 2024-04-11 16:02 | PC.NURSE ---
Discharge instructions faxed to [facility]. Multiple calls made to [facility], unable to reach facility for report. Patients family arrived for transportation. Discharge instructions given to them to take to facility. Patient taken off floor per wheelchair and assisted into vehicle.
--- NOTE | 2024-04-12 10:39 | PC.NURSE ---
No questions from [facility] regarding discharge instructions
== END 2024-04-11 15:55 | DRG 194 ==
LOC: CHSED 19:39 → CHS2ND 20:45
PROVIDERS: Nurse Practitioner Acute Care; Nurse Practitioner Family; Admitting Provider Internal Medicine; Emergency Provider Emergency Medicine; PCP Family Medicine; Visit Provider Nurse Practitioner Family
DX: J18.9 Pneumonia, unspecified organism (principal); E44.0 Moderate protein-calorie malnutrition; Z68.1 Body mass index [BMI] 19.9 or less, adult; I50.9 Heart failure, unspecified; I95.9 Hypotension, unspecified; I73.9 Peripheral vascular disease, unspecified; I71.21 Aneurysm of the ascending aorta, without rupture; E78.5 Hyperlipidemia, unspecified; E03.9 Hypothyroidism, unspecified; B86 Scabies; R21 Rash and other nonspecific skin eruption; F31.9 Bipolar disorder, unspecified; Z87.891 Personal history of nicotine dependence; Z79.82 Long term (current) use of aspirin; Z79.02 Long term (current) use of antithrombotics/antiplatelets
CPT/HCPCS: 36415; 71045; 71046; 80053; 81003; 83605; 83880; 84443; 85025; 85027; 85055; 87040; 87635; 93005; 96361; 96365; 96367; 97161; 97165; 97530; 99285; A9270; G0378; J0456; J0696; J1650; J2919; J7030; J7512